=== PATIENT | male | born 1945 | race Caucasian/White ===

== ENCOUNTER 2020-08-01 15:04 | Inpatient (IN) | payer MEDICARE ==
[~2020-08-01] VITALS: Ht 188 cm; Wt 90.5 kg
--- NOTE | 2020-08-01 15:30 | NUR ---
Admission Note with Justification for Admission to [facility] Patient admitted to [facility] for protective oversight for emergency stabilization of acute psychiatric crisis. Pt admitted from: Home Mode of arrival: POV Accompanied By: Family Precipitating behaviors that initiated intake and admission: Patient was reported to be aggressive towards his , noncompliant with medications. Description of failure of out patient attempts at stabilization in previous setting list behavior and medication trials: Medication changes Behaviors and assessment findings upon admission: Patient was calm, compliant on admit. He was cooperative with assessment, no complaints of pain, mildly forgetful. No skin issues noted. Plan: Admit for protective oversight for adjustment and stabilization of medications, behaviors and mood. Intense treatment regimen including groups, medication adjustments, therapy, consistent regimen for ADL's, self care, and sleep hygiene. Daily monitoring by Inpatient staff, Psychiatry, and Medical Physician.
[2020-08-01] MEDS ORDERED: MAG HYDROX/AL HYDROX/SIMETH 30 ML ORAL.SUSP PO PRN (15:45)
[2020-08-01] MEDS ORDERED: METHYL SALICYLATE/MENTHOL TOPICAL OINTMENT 57GM TUBE. TP PRN (15:45)
[2020-08-01] MEDS ORDERED: MAGNESIUM HYDROXIDE 2,400 MG/30 ML ORAL.SUSP. PO PRN (15:45)
[2020-08-01] MEDS ORDERED: METO50TA29 PO (16:09)
[2020-08-01] MEDS ORDERED: MIRT-37 PO (16:09)
[2020-08-01] MEDS ORDERED: PANT40TA6 PO (16:09)
[2020-08-01] MEDS ORDERED: OLAN5TAB7 PO (16:09)
[2020-08-01] MEDS ORDERED: MULT-114 PO (16:09)
[2020-08-01] MEDS ORDERED: FLUT16SP21 NS (16:09)
[2020-08-01] MEDS ORDERED: FENO48TA16 PO (16:09)
[2020-08-01] MEDS ORDERED: LUTE20CA4 PO (16:09)
[2020-08-01 16:20] VITALS: BP 121/81
[2020-08-01] MEDS: MIRTAZAPINE 15 MG TABLET PO SCH (19:56)
--- NOTE | 2020-08-01 21:58 | NUR ---
Nursing Note: Pt withdrawn to room, sitting quietly at shift change. Pt calm, pleasant, and interactive when approached. A/O to self, place, and time with confusion to situation but becomes more forgetful as the evening progresses. At one point this evening, pt pushed a bed from his room into the hallway and forgot that he was in the hospital. Pt has been easily re-directed thus far but will continue to monitor.
[2020-08-01] MEDS: traZODone 50 MG TABLET. PO PRN (23:42)
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
--- NOTE | 2020-08-02 04:33 | NUR ---
Nursing Note: Pt came out of his room and into the hallway, yelling at staff. Staff escorted pt back to his room so that he could use the bathroom as requested. Pt then proceeded to yell at staff, swearing, asking staff "what kind of astronauts are you", "you're not smart enough to be an astronaut". Pt calling staff "bitch", saying "I can milk a cow's tits can you?" and "you need to wash your tits", telling female GAS LEAK TESTER "are you ? You look like you're about 9 months". Pt unable to urinate and therefore it was decided that he needed to be straight cathed. Staff x4 assisted with catheterizing pt. Approximately 950mL yellow urine emptied from pt bladder. Pt continued to berate and yell at staff, calling staff "stupid" and "slut". Pt had to be escorted to [facility] for safety and de-escalation. Pt standing at nurse's station window and as nurse was taking a drink, pt stated "put that in your mouth and suck on it good". Pt shaking door handles and yelling at staff through the window. PRN Zydis administered dissolved in water which pt consumed.
[2020-08-02 04:48] LABS: BACTERIA,URINE 0 /HPF (0-FEW); BILIRUBIN,URINE NEG (NEG); CLARITY,URINE CLEAR; COLOR,URINE YELLOW; GLUCOSE,URINE NEG (NEG); NITRITE,URINE NEG (NEG); RBC,URINE 0 /HPF (0-2); SQUAMOUS EPITHELIAL CELL,UR OCC /LPF; UROBILINOGEN,URINE 0.2 mg/dL (0.2 mg/dL); WBC,URINE RARE /HPF (0-4)
[2020-08-02 05:39] VITALS: BP 162/64
[2020-08-02] MEDS: METOPROLOL SUCC 24HR ER 50 MG TAB.ER.24H. PO SCH (08:24)
[2020-08-02] MEDS: MULTIVITAMIN with MINERAL TABLET. PO SCH (08:25)
[2020-08-02] MEDS: FENOFIBRATE NANOCRYSTALLIZED 48 MG TABLET PO SCH (08:25)
[2020-08-02] MEDS: PANTOPRAZOLE 40 MG TABLET. PO SCH (08:25)
[2020-08-02] MEDS: FLUTICASONE 50MCG/NASAL SPRAY 16GM BOTTLE. NS SCH (08:27)
[2020-08-02] MEDS ORDERED: NON FORMULARY ITEM (Lutein 20 MG) PO SCH (09:00)
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
[2020-08-02 11:00] LABS: BASO # 0.1 x10^3/uL (0.0-0.2); BASO % 1 % (0-3); EOS % 0 % (0-3); HEMATOCRIT 49.6 % (39.0-53.0); HEMOGLOBIN 17.4 g/dL (13.0-17.5); LYMPH # 1.2 x10^3/uL (1.0-4.8); LYMPH % 13 % (24-48); MEAN CORPUSCULAR HEMOGLOBIN 31 pg (25-35); MEAN CORPUSCULAR HGB CONC 35 g/dL (31-37); MEAN CORPUSCULAR VOLUME 88 fL (79-100); MONO # 0.9 x10^3/uL (0.0-1.1); MONO % 10 % (0-9); NEUT # 7.1 x10^3uL (1.8-7.7); NEUT % 76 % (31-73); PLATELET COUNT 234 x10^3/uL (140-400); RED BLOOD COUNT 5.61 x10^6/uL (4.30-5.70); RED CELL DISTRIBUTION WIDTH 13.3 % (11.5-14.5); WHITE BLOOD COUNT 9.3 x10^3/uL (4.0-11.0)
[2020-08-02 11:05] LABS: ALBUMIN 3.8 g/dL (3.4-5.0); CALCIUM 9.1 mg/dL (8.5-10.1); CREATININE 1.2 mg/dL (0.7-1.3); GFR 58.9; MAGNESIUM 1.8 mg/dL (1.8-2.4); POTASSIUM 4.2 mmol/L (3.5-5.1); TOTAL BILIRUBIN 0.8 mg/dL (0.2-1.0); TOTAL PROTEIN 7.6 g/dL (6.4-8.2)
[2020-08-02 14:40] LABS: THYROID STIM HORMONE (TSH) 2.762 uIU/mL (0.358-3.740)
[2020-08-02 15:21] VITALS: BP 142/79
--- NOTE | 2020-08-02 16:58 | NUR ---
Patient is angry and irritable this AM. He was in locked hallway and was very agitated yelling and cussing at me. He wants to go home because he has chores he keeps stating. Patient has scheduled Zydis 5mg and was given with meds in AM. He continued to be irritable and agitated yelling in the hallway at us so I gave him an additional 2.5 PRN dose and he was calm after about 30 minutes after taking. Patient continued to be calm most of the day. He kept crawling around on the ground in his room and eventually we gave him a pillow and blanket and he laid down to sleep . When we went into his room after about 15 min of laying down he had vomited a small amount and said he was weak. We got him up and sat him on edge of bed to eat dinner and he is now doing well. Will monitor. Patient heart rate continues to be high.
--- NOTE | 2020-08-02 18:06 | NUR ---
Spoke to Dr Almeida and he would like to add Melatonin 3mg QHS scheduled. Orders placed.
--- NOTE | 2020-08-02 19:30 | NUR ---
Bladder scan done 700 cc. Pt up to toilet unable to void.
[2020-08-02 20:13] LABS: THYROXINE 6.2 ug/dL (4.5-12.0)
[2020-08-02] MEDS: MELATONIN 3 MG TABLET PO SCH (20:59)
[2020-08-02] MEDS: MIRTAZAPINE 15 MG TABLET PO SCH (20:59)
[2020-08-02] MEDS: traZODone 50 MG TABLET. PO PRN (20:59)
[2020-08-02] MEDS ORDERED: TAMSULOSIN 0.4 MG CAP.ER.24H. PO ONE (21:00)
--- NOTE | 2020-08-02 21:00 | NUR ---
Bladder scanned 820cc, unable to vpoid. Dr BALDWIN called and orders received.
--- NOTE | 2020-08-02 21:30 | NUR ---
Straight cath done 900cc clear dark claudia urine drained. Pt resistive sarcastic and sexually inappropriate to staff. Tolerated procedure well.
--- NOTE | 2020-08-02 21:46 | PDOC ---
Exam Note: Manish Note: Please also refer to the separate dictated note~for this date of service dictated separately.~Patient seen individually. Discussed the patient with Nursing staff reviewed the chart.~Reviewed interim history and current functioning. Reviewed vital signs,~Labs/ Radiology~and current medications noted below. Continue current treatment with the changes noted in the dictated addendum note Assessment: Vital Signs/I&O: Vital Signs Date Time Temp Pulse Resp B/P (MAP) Pulse Ox O2 Delivery O2 Flow Rate FiO2 08/02/20 15:21 98.7 99 19 142/79 (100) 91 08/02/20 05:39 Room Air I & O 08/01/20 08/01/20 08/02/20 15:00 23:00 07:00 Intake Total 540 ml Output Total 950 ml Balance 540 ml -950 ml Labs: Laboratory Tests Test 08/02/20 04:25 08/02/20 10:40 Urine Collection Type U cath Urine Color Yellow Urine Clarity Clear Urine pH 5.5 Urine Specific Homer 1.020 Urine Protein Neg (NEG-TRACE) Urine Glucose (UA) Neg mg/dL (NEG) Urine Ketones (Stick) Neg mg/dL (NEG) Urine Blood Neg (NEG) Urine Nitrite Neg (NEG) Urine Bilirubin Neg (NEG) Urine Urobilinogen Dipstick 0.2 mg/dL (0.2 mg/dL) Urine Leukocyte Esterase Neg (NEG) Urine RBC 0 /HPF (0-2) Urine WBC Rare /HPF (0-4) Urine Squamous Epithelial Cells Occ /LPF Urine Bacteria 0 /HPF (0-FEW) White Blood Count 9.3 x10^3/uL (4.0-11.0) Red Blood Count 5.61 x10^6/uL (4.30-5.70) Hemoglobin 17.4 g/dL (13.0-17.5) Hematocrit 49.6 % (39.0-53.0) Mean Corpuscular Volume 88 fL (79-100) Mean Corpuscular Hemoglobin 31 pg (25-35) Mean Corpuscular Hemoglobin Concent 35 g/dL (31-37) Red Cell Distribution Width 13.3 % (11.5-14.5) Platelet Count 234 x10^3/uL (140-400) Neutrophils (%) (Auto) 76 % (31-73) H Lymphocytes (%) (Auto) 13 % (24-48) L Monocytes (%) (Auto) 10 % (0-9) H Eosinophils (%) (Auto) 0 % (0-3) Basophils (%) (Auto) 1 % (0-3) Neutrophils # (Auto) 7.1 x10^3uL (1.8-7.7) Lymphocytes # (Auto) 1.2 x10^3/uL (1.0-4.8) Monocytes # (Auto) 0.9 x10^3/uL (0.0-1.1) Eosinophils # (Auto) 0.0 x10^3/uL (0.0-0.7) Basophils # (Auto) 0.1 x10^3/uL (0.0-0.2) D-Dimer (Lili) 0.54 mg/L (0.00-0.50) H Sodium Level 143 mmol/L (136-145) Potassium Level 4.2 mmol/L (3.5-5.1) Chloride Level 108 mmol/L (98-107) H Carbon Dioxide Level 24 mmol/L (21-32) Anion Gap 11 (6-14) Blood Urea Nitrogen 21 mg/dL (8-26) Creatinine 1.2 mg/dL (0.7-1.3) Estimated GFR (Cockcroft-Gault) 58.9 BUN/Creatinine Ratio 18 (6-20) Glucose Level 112 mg/dL (70-99) H Calcium Level 9.1 mg/dL (8.5-10.1) Magnesium Level 1.8 mg/dL (1.8-2.4) Iron Level 106 ug/dL (65-175) Total Iron Binding Capacity 344 ug/dL (250-450) Iron Saturation 31 % (15-34) Total Bilirubin 0.8 mg/dL (0.2-1.0) Aspartate Amino Transferase (AST) 24 U/L (15-37) Alanine Aminotransferase (ALT) 35 U/L (16-63) Alkaline Phosphatase 93 U/L (46-116) Total Protein 7.6 g/dL (6.4-8.2) Albumin 3.8 g/dL (3.4-5.0) Albumin/Globulin Ratio 1.0 (1.0-1.7) Triglycerides Level 245 mg/dL (0-150) H Cholesterol Level 288 mg/dL (0-200) H LDL Cholesterol, Calculated 197 mg/dL (0-100) H VLDL Cholesterol, Calculated 49 mg/dL (0-40) H Non-HDL Cholesterol Calculated 246 mg/dL (0-129) H HDL Cholesterol 42 mg/dL (40-60) Cholesterol/HDL Ratio 6.0 Vitamin B12 Level 280 pg/mL (247-911) 25-Hydroxy Vitamin D Total 18.8 ng/mL (30-100) L Thyroid Stimulating Hormone (TSH) 2.762 uIU/mL (0.358-3.740) Thyroxine (T4) 6.2 ug/dL (4.5-12.0) Total Triiodothyronine (TT3) 107 ng/dL (71-180) Treponema pallidum Antibody Nonreactive (Nonreactive) Current Medications: Meds: Current Medications Medications (Trade) Dose Ordered Sig/Sonia Route PRN Reason Start Time Stop Time Status Last Admin Dose Admin Fenofibrate (Tricor) 48 mg DAILY PO 08/02/20 09:00 08/02/20 08:25 Fluticasone Propionate (Flonase) 2 spray DAILY NS 08/02/20 09:00 08/02/20 08:27 Metoprolol Succinate (Toprol Xl) 50 mg DAILY PO 08/02/20 09:00 08/02/20 08:24 Olanzapine (ZyPREXA ZYDIS) 5 mg DAILY PO 08/02/20 09:00 08/02/20 08:25 Pantoprazole Sodium (Protonix) 40 mg DAILY PO 08/02/20 09:00 08/02/20 08:25 Multivitamins/ Calcium (Thera-M Plus) 1 tab DAILY PO 08/02/20 09:00 08/02/20 08:25 Olanzapine (ZyPREXA ZYDIS) 2.5 mg PRN Q2HR PRN PO PSYCHOSIS 08/01/20 23:30 08/02/20 09:30 Trazodone HCl (Desyrel) 50 mg PRN QHS PRN PO INSOMNIA, MAY REPEAT X2 08/01/20 23:30 08/02/20 20:59 Melatonin (Melatonin) 3 mg QHS PO 08/02/20 21:00 08/02/20 20:59 Tamsulosin HCl (Flomax) 0.4 mg 1X ONCE PO 08/02/20 21:00 08/02/20 21:01 DC 08/02/20 21:01 I have reviewed the current psychotropics carefully including drug interactions. Risk benefit ratio favors no change other than as noted in my dictated progress note. Diagnosis: Problems: (1) Psychotic disorder (2) Major neurocognitive disorder (3) Vascular dementia with delusions (4) Vascular dementia with depression (5) Anxiety disorder, unspecified (6) Impulse control disorder, unspecified PRABHAKAR MOLINA MD Aug 02, 2020 21:46
--- NOTE | 2020-08-02 22:51 | NUR ---
Pt has been in the quiet room tonight he has sexually inappropriate with female staff and demanding and sarcastic to everyone. He did take his meds whole without much of a problem. He has been talking to persons not here and sometimes yells demanding unseen persons to do things for him. While being straight catheterized he did swing at staff and eventually calmed.
[2020-08-03 00:07] LABS: HEMOGLOBIN A1C 5.6 % (4.8-5.6)
--- NOTE | 2020-08-03 03:30 | NUR ---
Pt unable to void, straight cath done and pt tolerated well. His behavior was much better when only male staff was providing care. He is very confused and has been talking in child type voice, quacking and making animal sounds at times.
[2020-08-03 06:24] VITALS: BP 150/89
--- NOTE | 2020-08-03 08:07 | PDOC ---
Exam Note: Manish Note: This is a late entry for 08/01/2020. Please also refer to the separate dictated note~for this date of service dictated separately.~Patient seen individually. Discussed the patient with Nursing staff reviewed the chart.~Reviewed interim history and current functioning. Reviewed vital signs,~Labs/ Radiology~and cur rent medications noted below. Continue current treatment with the changes noted in the dictated addendum note Assessment: Vital Signs/I&O: Vital Signs Date Time Temp Pulse Resp B/P (MAP) Pulse Ox O2 Delivery O2 Flow Rate FiO2 08/03/20 06:24 97.7 84 20 150/89 (109) Room Air 08/02/20 15:21 91 I & O 08/02/20 08/02/20 08/03/20 15:00 23:00 07:00 Intake Total 720 ml 740 ml Output Total 1800 ml 600 ml Balance 720 ml -1060 ml -600 ml Labs: Laboratory Tests Test 08/02/20 10:40 White Blood Count 9.3 x10^3/uL (4.0-11.0) Red Blood Count 5.61 x10^6/uL (4.30-5.70) Hemoglobin 17.4 g/dL (13.0-17.5) Hematocrit 49.6 % (39.0-53.0) Mean Corpuscular Volume 88 fL (79-100) Mean Corpuscular Hemoglobin 31 pg (25-35) Mean Corpuscular Hemoglobin Concent 35 g/dL (31-37) Red Cell Distribution Width 13.3 % (11.5-14.5) Platelet Count 234 x10^3/uL (140-400) Neutrophils (%) (Auto) 76 % (31-73) H Lymphocytes (%) (Auto) 13 % (24-48) L Monocytes (%) (Auto) 10 % (0-9) H Eosinophils (%) (Auto) 0 % (0-3) Basophils (%) (Auto) 1 % (0-3) Neutrophils # (Auto) 7.1 x10^3uL (1.8-7.7) Lymphocytes # (Auto) 1.2 x10^3/uL (1.0-4.8) Monocytes # (Auto) 0.9 x10^3/uL (0.0-1.1) Eosinophils # (Auto) 0.0 x10^3/uL (0.0-0.7) Basophils # (Auto) 0.1 x10^3/uL (0.0-0.2) D-Dimer (Lili) 0.54 mg/L (0.00-0.50) H Sodium Level 143 mmol/L (136-145) Potassium Level 4.2 mmol/L (3.5-5.1) Chloride Level 108 mmol/L (98-107) H Carbon Dioxide Level 24 mmol/L (21-32) Anion Gap 11 (6-14) Blood Urea Nitrogen 21 mg/dL (8-26) Creatinine 1.2 mg/dL (0.7-1.3) Estimated GFR (Cockcroft-Gault) 58.9 BUN/Creatinine Ratio 18 (6-20) Glucose Level 112 mg/dL (70-99) H Hemoglobin A1c 5.6 % (4.8-5.6) Calcium Level 9.1 mg/dL (8.5-10.1) Magnesium Level 1.8 mg/dL (1.8-2.4) Iron Level 106 ug/dL (65-175) Total Iron Binding Capacity 344 ug/dL (250-450) Iron Saturation 31 % (15-34) Total Bilirubin 0.8 mg/dL (0.2-1.0) Aspartate Amino Transferase (AST) 24 U/L (15-37) Alanine Aminotransferase (ALT) 35 U/L (16-63) Alkaline Phosphatase 93 U/L (46-116) Total Protein 7.6 g/dL (6.4-8.2) Albumin 3.8 g/dL (3.4-5.0) Albumin/Globulin Ratio 1.0 (1.0-1.7) Triglycerides Level 245 mg/dL (0-150) H Cholesterol Level 288 mg/dL (0-200) H LDL Cholesterol, Calculated 197 mg/dL (0-100) H VLDL Cholesterol, Calculated 49 mg/dL (0-40) H Non-HDL Cholesterol Calculated 246 mg/dL (0-129) H HDL Cholesterol 42 mg/dL (40-60) Cholesterol/HDL Ratio 6.0 Vitamin B12 Level 280 pg/mL (247-911) 25-Hydroxy Vitamin D Total 18.8 ng/mL (30-100) L Thyroid Stimulating Hormone (TSH) 2.762 uIU/mL (0.358-3.740) Thyroxine (T4) 6.2 ug/dL (4.5-12.0) Total Triiodothyronine (TT3) 107 ng/dL (71-180) Treponema pallidum Antibody Nonreactive (Nonreactive) Current Medications: Meds: Laboratory Tests Test 08/02/20 10:40 White Blood Count 9.3 x10^3/uL Red Blood Count 5.61 x10^6/uL Hemoglobin 17.4 g/dL Hematocrit 49.6 % Mean Corpuscular Volume 88 fL Mean Corpuscular Hemoglobin 31 pg Mean Corpuscular Hemoglobin Concent 35 g/dL Red Cell Distribution Width 13.3 % Platelet Count 234 x10^3/uL Neutrophils (%) (Auto) 76 % Lymphocytes (%) (Auto) 13 % Monocytes (%) (Auto) 10 % Eosinophils (%) (Auto) 0 % Basophils (%) (Auto) 1 % Neutrophils # (Auto) 7.1 x10^3uL Lymphocytes # (Auto) 1.2 x10^3/uL Monocytes # (Auto) 0.9 x10^3/uL Eosinophils # (Auto) 0.0 x10^3/uL Basophils # (Auto) 0.1 x10^3/uL D-Dimer (Lili) 0.54 mg/L Sodium Level 143 mmol/L Potassium Level 4.2 mmol/L Chloride Level 108 mmol/L Carbon Dioxide Level 24 mmol/L Anion Gap 11 Blood Urea Nitrogen 21 mg/dL Creatinine 1.2 mg/dL Estimated GFR (Cockcroft-Gault) 58.9 BUN/Creatinine Ratio 18 Glucose Level 112 mg/dL Hemoglobin A1c 5.6 % Calcium Level 9.1 mg/dL Magnesium Level 1.8 mg/dL Iron Level 106 ug/dL Total Iron Binding Capacity 344 ug/dL Iron Saturation 31 % Total Bilirubin 0.8 mg/dL Aspartate Amino Transf (AST/SGOT) 24 U/L Alanine Aminotransferase (ALT/SGPT) 35 U/L Alkaline Phosphatase 93 U/L Total Protein 7.6 g/dL Albumin 3.8 g/dL Albumin/Globulin Ratio 1.0 Triglycerides Level 245 mg/dL Cholesterol Level 288 mg/dL LDL Cholesterol, Calculated 197 mg/dL VLDL Cholesterol, Calculated 49 mg/dL Non-HDL Cholesterol Calculated 246 mg/dL HDL Cholesterol 42 mg/dL Cholesterol/HDL Ratio 6.0 Vitamin B12 Level 280 pg/mL 25-Hydroxy Vitamin D Total 18.8 ng/mL Thyroid Stimulating Hormone (TSH) 2.762 uIU/mL Thyroxine (T4) 6.2 ug/dL Total Triiodothyronine 107 ng/dL Treponema pallidum Antibody Nonreactive Current Medications Medications (Trade) Dose Ordered Sig/Sonia Route PRN Reason Start Time Stop Time Status Last Admin Dose Admin Acetaminophen (Tylenol) 650 mg PRN Q6HRS PRN PO MILD PAIN / TEMP > 100.3'F 08/01/20 15:45 Multi-Ingredient Ointment (Analgesic [place]) 1 olu PRN QID PRN TP MUSCLE PAIN 08/01/20 15:45 Al Hydroxide/Mg Hydroxide (Mylanta Plus Xs) 15 ml PRN AFTMEALHC PRN PO DYSPEPSIA 08/01/20 15:45 Magnesium Hydroxide (Milk Of Magnesia) 2,400 mg PRN QHS PRN PO CONSTIPATION 08/01/20 15:45 Fenofibrate (Tricor) 48 mg DAILY PO 08/02/20 09:00 08/02/20 08:25 Fluticasone Propionate (Flonase) 2 spray DAILY NS 08/02/20 09:00 08/02/20 08:27 Metoprolol Succinate (Toprol Xl) 50 mg DAILY PO 08/02/20 09:00 08/02/20 08:24 Mirtazapine (Remeron) 15 mg QHS PO 08/01/20 21:00 08/02/20 20:59 Olanzapine (ZyPREXA ZYDIS) 5 mg DAILY PO 08/02/20 09:00 08/02/20 08:25 Pantoprazole Sodium (Protonix) 40 mg DAILY PO 08/02/20 09:00 08/02/20 08:25 Non-Formulary Medication (Lutein ) 20 mg DAILY PO 08/02/20 09:00 UNV Multivitamins/ Calcium (Thera-M Plus) 1 tab DAILY PO 08/02/20 09:00 08/02/20 08:25 Olanzapine (ZyPREXA ZYDIS) 2.5 mg PRN Q2HR PRN PO PSYCHOSIS 08/01/20 23:30 08/02/20 09:30 Trazodone HCl (Desyrel) 50 mg PRN QHS PRN PO INSOMNIA, MAY REPEAT X2 08/01/20 23:30 08/02/20 20:59 Melatonin (Melatonin) 3 mg QHS PO 08/02/20 21:00 08/02/20 20:59 Tamsulosin HCl (Flomax) 0.4 mg DAILY PO 08/03/20 09:00 Tamsulosin HCl (Flomax) 0.4 mg 1X ONCE PO 08/02/20 21:00 08/02/20 21:01 DC 08/02/20 21:01 Current Medications Medications (Trade) Dose Ordered Sig/Sonia Route PRN Reason Start Time Stop Time Status Last Admin Dose Admin Fenofibrate (Tricor) 48 mg DAILY PO 08/02/20 09:00 08/02/20 08:25 Fluticasone Propionate (Flonase) 2 spray DAILY NS 08/02/20 09:00 08/02/20 08:27 Metoprolol Succinate (Toprol Xl) 50 mg DAILY PO 08/02/20 09:00 08/02/20 08:24 Olanzapine (ZyPREXA ZYDIS) 5 mg DAILY PO 08/02/20 09:00 08/02/20 08:25 Pantoprazole Sodium (Protonix) 40 mg DAILY PO 08/02/20 09:00 08/02/20 08:25 Multivitamins/ Calcium (Thera-M Plus) 1 tab DAILY PO 08/02/20 09:00 08/02/20 08:25 Melatonin (Melatonin) 3 mg QHS PO 08/02/20 21:00 08/02/20 20:59 Tamsulosin HCl (Flomax) 0.4 mg 1X ONCE PO 08/02/20 21:00 08/02/20 21:01 DC 08/02/20 21:01 I have reviewed the current psychotropics carefully including drug interactions. Risk benefit ratio favors no change other than as noted in my dictated progress note. Diagnosis: Problems: (1) Psychotic disorder (2) Impulse control disorder, unspecified (3) Vascular dementia with delusions (4) Anxiety disorder, unspecified (5) Vascular dementia with depression (6) Major neurocognitive disorder PRABHAKAR MOLINA MD Aug 03, 2020 08:07
--- NOTE | 2020-08-03 08:30 | PDOC ---
Exam Note: Manish Note: This note is a late entry for 08/02/2020 covers elements not covered in my initial note. Subjective: The patient was reviewed on telehealth rounds in the evening of 08/02/2020 with Roselyn ULLOA. Discussed with nursing staff, reviewed the chart. The patient was abusive in the morning, yelling, agitated. I had been called by the nursing staff around midnight, as he was not sleeping. We have added trazodone and Remeron, but still did not sleep at all previous night. Review of Systems: Positive for some impairment of ambulation. No CV, , pulmonary, eye, ENT system symptoms on review. Mental Status Exam: The patient is oriented to himself and situation. Speech has some latency. Often response is monosyllabic. Abstraction is fair. Computation is impaired. Language function is intact. Mood and affect somewhat anxious, labile. Laboratory Data: Reviewed. Impression: Major neurocognitive disorder, vascular with delusion, depression. Anxiety disorder unspecified. Impulse control disorder. Psychotic disorder unspecified. Plan: Continue Remeron 15 mg h.s., Zyprexa 5 mg daily plus p.r.n., trazodone p.r.n. We will add melatonin 3 mg h.s. Consider changing Remeron to amitriptyline if insomnia persists. Adjust further as clinically indicated. Assessment: Vital Signs/I&O: Vital Signs Date Time Temp Pulse Resp B/P (MAP) Pulse Ox O2 Delivery O2 Flow Rate FiO2 08/03/20 06:24 97.7 84 20 150/89 (109) Room Air 08/02/20 15:21 91 I & O 08/02/20 08/02/20 08/03/20 15:00 23:00 07:00 Intake Total 720 ml 740 ml Output Total 1800 ml 600 ml Balance 720 ml -1060 ml -600 ml Labs: Laboratory Tests Test 08/02/20 10:40 White Blood Count 9.3 x10^3/uL (4.0-11.0) Red Blood Count 5.61 x10^6/uL (4.30-5.70) Hemoglobin 17.4 g/dL (13.0-17.5) Hematocrit 49.6 % (39.0-53.0) Mean Corpuscular Volume 88 fL (79-100) Mean Corpuscular Hemoglobin 31 pg (25-35) Mean Corpuscular Hemoglobin Concent 35 g/dL (31-37) Red Cell Distribution Width 13.3 % (11.5-14.5) Platelet Count 234 x10^3/uL (140-400) Neutrophils (%) (Auto) 76 % (31-73) H Lymphocytes (%) (Auto) 13 % (24-48) L Monocytes (%) (Auto) 10 % (0-9) H Eosinophils (%) (Auto) 0 % (0-3) Basophils (%) (Auto) 1 % (0-3) Neutrophils # (Auto) 7.1 x10^3uL (1.8-7.7) Lymphocytes # (Auto) 1.2 x10^3/uL (1.0-4.8) Monocytes # (Auto) 0.9 x10^3/uL (0.0-1.1) Eosinophils # (Auto) 0.0 x10^3/uL (0.0-0.7) Basophils # (Auto) 0.1 x10^3/uL (0.0-0.2) D-Dimer (Lili) 0.54 mg/L (0.00-0.50) H Sodium Level 143 mmol/L (136-145) Potassium Level 4.2 mmol/L (3.5-5.1) Chloride Level 108 mmol/L (98-107) H Carbon Dioxide Level 24 mmol/L (21-32) Anion Gap 11 (6-14) Blood Urea Nitrogen 21 mg/dL (8-26) Creatinine 1.2 mg/dL (0.7-1.3) Estimated GFR (Cockcroft-Gault) 58.9 BUN/Creatinine Ratio 18 (6-20) Glucose Level 112 mg/dL (70-99) H Hemoglobin A1c 5.6 % (4.8-5.6) Calcium Level 9.1 mg/dL (8.5-10.1) Magnesium Level 1.8 mg/dL (1.8-2.4) Iron Level 106 ug/dL (65-175) Total Iron Binding Capacity 344 ug/dL (250-450) Iron Saturation 31 % (15-34) Total Bilirubin 0.8 mg/dL (0.2-1.0) Aspartate Amino Transferase (AST) 24 U/L (15-37) Alanine Aminotransferase (ALT) 35 U/L (16-63) Alkaline Phosphatase 93 U/L (46-116) Total Protein 7.6 g/dL (6.4-8.2) Albumin 3.8 g/dL (3.4-5.0) Albumin/Globulin Ratio 1.0 (1.0-1.7) Triglycerides Level 245 mg/dL (0-150) H Cholesterol Level 288 mg/dL (0-200) H LDL Cholesterol, Calculated 197 mg/dL (0-100) H VLDL Cholesterol, Calculated 49 mg/dL (0-40) H Non-HDL Cholesterol Calculated 246 mg/dL (0-129) H HDL Cholesterol 42 mg/dL (40-60) Cholesterol/HDL Ratio 6.0 Vitamin B12 Level 280 pg/mL (247-911) 25-Hydroxy Vitamin D Total 18.8 ng/mL (30-100) L Thyroid Stimulating Hormone (TSH) 2.762 uIU/mL (0.358-3.740) Thyroxine (T4) 6.2 ug/dL (4.5-12.0) Total Triiodothyronine (TT3) 107 ng/dL (71-180) Treponema pallidum Antibody Nonreactive (Nonreactive) Current Medications: Meds: Current Medications Medications (Trade) Dose Ordered Sig/Sonia Route PRN Reason Start Time Stop Time Status Last Admin Dose Admin Fenofibrate (Tricor) 48 mg DAILY PO 08/02/20 09:00 08/02/20 08:25 Fluticasone Propionate (Flonase) 2 spray DAILY NS 08/02/20 09:00 08/02/20 08:27 Metoprolol Succinate (Toprol Xl) 50 mg DAILY PO 08/02/20 09:00 08/02/20 08:24 Olanzapine (ZyPREXA ZYDIS) 5 mg DAILY PO 08/02/20 09:00 08/02/20 08:25 Pantoprazole Sodium (Protonix) 40 mg DAILY PO 08/02/20 09:00 08/02/20 08:25 Multivitamins/ Calcium (Thera-M Plus) 1 tab DAILY PO 08/02/20 09:00 08/02/20 08:25 Melatonin (Melatonin) 3 mg QHS PO 08/02/20 21:00 08/02/20 20:59 Tamsulosin HCl (Flomax) 0.4 mg 1X ONCE PO 08/02/20 21:00 08/02/20 21:01 DC 08/02/20 21:01 I have reviewed the current psychotropics carefully including drug interactions. Risk benefit ratio favors no change other than as noted in my dictated progress note. Diagnosis: Problems: (1) Psychotic disorder (2) Impulse control disorder, unspecified (3) Vascular dementia with delusions (4) Anxiety disorder, unspecified (5) Vascular dementia with depression (6) Major neurocognitive disorder PRABHAKAR MOLINA MD Aug 03, 2020 08:30
[2020-08-03] MEDS: FLUTICASONE 50MCG/NASAL SPRAY 16GM BOTTLE. NS SCH (09:00)
[2020-08-03] MEDS ORDERED: TAMSULOSIN 0.4 MG CAP.ER.24H. PO SCH (09:00)
[2020-08-03] MEDS: FENOFIBRATE NANOCRYSTALLIZED 48 MG TABLET PO SCH (09:47)
[2020-08-03] MEDS: METOPROLOL SUCC 24HR ER 50 MG TAB.ER.24H. PO SCH (09:47)
[2020-08-03] MEDS: MULTIVITAMIN with MINERAL TABLET. PO SCH (09:47)
[2020-08-03] MEDS: PANTOPRAZOLE 40 MG TABLET. PO SCH (09:47)
--- NOTE | 2020-08-03 10:59 | NUR ---
WEEKLY ACTIVITY THERAPY NOTE Date of Admission: 08/01 Date of AT Assessment: TBD Precipitating behaviors that initiated intake and admission: Patient was reported to be aggressive towards his , noncompliant with medications. Goal aimed: TBD Initial Goal: TBD Weekly progress towards goal: NA Group participation level: zero Weekly highlights: arrived to the unit Behaviors observed: new admit, wanders with mask in his hand Plan: meet/ assess Pt Beneficial adaptations:
--- NOTE | 2020-08-03 12:24 | NUR ---
Patient still not voiding on own. Bladder scan done and ~600ml on scan seen. Patient was straight cath'd and I was able to drain 575ml of urine. Patient was visibly [id number]+ Addendum: 08/03/20 at 1230 by BEST MANCINI RN Patient visibly distended and uncomfortable. Patient laid flat in bed. Clean procedure was used to straight cath patient. Penis opening was very small and looked very swollen and irritated. Area was cleansed with betadine swabs. Catheter was inserted and once urine was flowing catheter was advanced 1 inch further. Catheter was held in place until urine flow stopped totalling 575ml of urine. Catheter was removed and patient tolerated procedure well. Urine sample was sent to lab last night so urine was discarded. We will continue to monitor if patient voids on his own or not and scan him every 6 hours. If need be we will continue to catheterize him to drain. Spoke to Dr Art and we will increase the flomax to BID starting now to see if we can avoid the patient getting a pearson inserted. Will monitor and decide at a later time.
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
[2020-08-03] MEDS: TAMSULOSIN 0.4 MG CAP.ER.24H. PO SCH ×2 (14:29→19:42)
[2020-08-03 15:38] VITALS: BP 135/71
--- NOTE | 2020-08-03 16:48 | NUR ---
Patient spends most of his day laying in bed. Did sleep through out the day. He has not been urinating on his own. Dr Art does not want to place a pearson so we will continue to monitor patient and output. Patient does state that he is uncomfortable. No further concerns or complaints at this time. Patient has no behaviors today and is calm and pleasant. Did turn labile at times.
--- NOTE | 2020-08-03 17:39 | NUR ---
Bladder scan performed, last straight catheter performed at 11:00am, Largest measurement 355ml to 295ml. Will wait for patient to see if he can use urinal. He will get a second dose of the Flomax tonight and maybe he will be able to urinate on his own then. Will have hand ii blocker RN have a plan with Dr Art for overnight if he does not urinate.
[2020-08-03] MEDS: MELATONIN 3 MG TABLET PO SCH (19:42)
[2020-08-03] MEDS: risperiDONE 0.25 MG TABLET. PO SCH (19:43)
--- NOTE | 2020-08-03 21:03 | PDOC ---
Exam Note: Manish Note: Please also refer to the separate dictated note~for this date of service dictated separately.~Patient seen individually. Discussed the patient with Nursing staff reviewed the chart.~Reviewed interim history and current functioning. Reviewed vital signs,~Labs/ Radiology~and current medications noted below. Continue current treatment with the changes noted in the dictated addendum note Assessment: Vital Signs/I&O: Vital Signs Date Time Temp Pulse Resp B/P (MAP) Pulse Ox O2 Delivery O2 Flow Rate FiO2 08/03/20 15:38 98.1 85 18 135/71 (92) 92 08/03/20 06:24 Room Air I & O 08/02/20 08/02/20 08/03/20 15:00 23:00 07:00 Intake Total 720 ml 740 ml Output Total 1800 ml 600 ml Balance 720 ml -1060 ml -600 ml Current Medications: Meds: Current Medications Medications (Trade) Dose Ordered Sig/Sonia Route PRN Reason Start Time Stop Time Status Last Admin Dose Admin Acetaminophen (Tylenol) 650 mg PRN Q6HRS PRN PO MILD PAIN / TEMP > 100.3'F 08/01/20 15:45 Multi-Ingredient Ointment (Analgesic [place]) 1 olu PRN QID PRN TP MUSCLE PAIN 08/01/20 15:45 Al Hydroxide/Mg Hydroxide (Mylanta Plus Xs) 15 ml PRN AFTMEALHC PRN PO DYSPEPSIA 08/01/20 15:45 Magnesium Hydroxide (Milk Of Magnesia) 2,400 mg PRN QHS PRN PO CONSTIPATION 08/01/20 15:45 Fenofibrate (Tricor) 48 mg DAILY PO 08/02/20 09:00 08/03/20 09:47 Fluticasone Propionate (Flonase) 2 spray DAILY NS 08/02/20 09:00 08/03/20 09:00 Metoprolol Succinate (Toprol Xl) 50 mg DAILY PO 08/02/20 09:00 08/03/20 09:47 Mirtazapine (Remeron) 15 mg QHS PO 08/01/20 21:00 08/03/20 18:01 DC 08/02/20 20:59 Olanzapine (ZyPREXA ZYDIS) 5 mg DAILY PO 08/02/20 09:00 08/03/20 18:01 DC 08/03/20 09:47 Pantoprazole Sodium (Protonix) 40 mg DAILY PO 08/02/20 09:00 08/03/20 09:47 Non-Formulary Medication (Lutein ) 20 mg DAILY PO 08/02/20 09:00 UNV Multivitamins/ Calcium (Thera-M Plus) 1 tab DAILY PO 08/02/20 09:00 08/03/20 09:47 Olanzapine (ZyPREXA ZYDIS) 2.5 mg PRN Q2HR PRN PO PSYCHOSIS 08/01/20 23:30 08/02/20 09:30 Trazodone HCl (Desyrel) 50 mg PRN QHS PRN PO INSOMNIA, MAY REPEAT X2 08/01/20 23:30 08/02/20 20:59 Melatonin (Melatonin) 3 mg QHS PO 08/02/20 21:00 08/03/20 19:42 Tamsulosin HCl (Flomax) 0.4 mg DAILY PO 08/03/20 09:00 08/03/20 12:33 DC 08/03/20 09:47 Tamsulosin HCl (Flomax) 0.4 mg 1X ONCE PO 08/02/20 21:00 08/02/20 21:01 DC 08/02/20 21:01 Tamsulosin HCl (Flomax) 0.4 mg BID PO 08/03/20 14:00 08/03/20 19:42 Risperidone (RisperDAL) 0.25 mg QHS PO 08/03/20 21:00 08/03/20 19:43 Current Medications Medications (Trade) Dose Ordered Sig/Sonia Route PRN Reason Start Time Stop Time Status Last Admin Dose Admin Tamsulosin HCl (Flomax) 0.4 mg DAILY PO 08/03/20 09:00 08/03/20 12:33 DC 08/03/20 09:47 Tamsulosin HCl (Flomax) 0.4 mg BID PO 08/03/20 14:00 08/03/20 19:42 Risperidone (RisperDAL) 0.25 mg QHS PO 08/03/20 21:00 08/03/20 19:43 I have reviewed the current psychotropics carefully including drug interactions. Risk benefit ratio favors no change other than as noted in my dictated progress note. Diagnosis: Problems: (1) Psychotic disorder (2) Impulse control disorder, unspecified (3) Vascular dementia with delusions (4) Anxiety disorder, unspecified (5) Vascular dementia with depression (6) Major neurocognitive disorder PRABHAKAR MOLINA MD Aug 03, 2020 21:03
--- NOTE | 2020-08-04 03:54 | NUR ---
Nursing Note The patient was located in his room laying in bed for his assessment and medication pass. The patient took his medication whole. The patient was unable to answer assessment questions except first and last name and "hospital." The patient is very fearful of falling but is cooperative with cares.
[2020-08-04 06:32] VITALS: BP 153/76
--- NOTE | 2020-08-04 09:00 | NUR ---
ACTIVITY THERAPY ASSESSMENT completed based on observation, notes, and interview. Pt was laying in his bed with his eyes open. As AT walked into the room pt said 'your pretty.' Pt said that he was unable to hear AT through her mask. AT explained that she could not take her mask off because of the virus. Pt said that he had some idea about Coronavirus. Pt was compliant at first and agreed to answering questions. Pt said that [place]. Pt's mood then became labile as he became agitated and harsh towards AT. Pt began to ask AT questions and then would call AT stupid or say 'where is your brain?' Pt also told AT that she was unprofessional. Pt was requesting to get out of bed and wanted his bed lowered. AT explained that his bed was all the way down and he could get up if he would like. Pt was still agitated with AT at this point. Pt said 'with what legs?' AT pointed to pt's legs and said that he could use his legs. Pt said 'do not touch me.' AT apologized and explained that she did not touch him. Pt told AT, 'do not even look at me.' Pt was not redirectable during the time of assessment. Pt was unaware that he was in [place] and at [facility]. Pt said that he was in [place]. AT asked pt if she could get him anything. Pt requested Men's Health magazines. AT brought back a Men's Health magazine and asked if he would like any other magazines. Pt said 'I want five' as he held up the number on his hands. Then he said to AT 'can you count to five?' AT gave pt the last Men's Health magazine on the unit so the pt was brought four more People magazines. Pt's mood at this time became pleasant and was agreeable to other magazines and thanked AT. Initial goal is aimed to increase stress management/relaxation and socialization skills. Pt will participate in at least one individual or group Activity Therapy session before discharge. Addendum: 08/10/20 at 1240 by KEITH WALTER ACT Goal changed 08/10: Pt. will participate in at least three Activity Therapy groups before discharge
[2020-08-04] MEDS: MULTIVITAMIN with MINERAL TABLET. PO SCH (09:15)
[2020-08-04] MEDS: FENOFIBRATE NANOCRYSTALLIZED 48 MG TABLET PO SCH (09:15)
[2020-08-04] MEDS: PANTOPRAZOLE 40 MG TABLET. PO SCH (09:15)
[2020-08-04] MEDS: TAMSULOSIN 0.4 MG CAP.ER.24H. PO SCH ×2 (09:15→21:09)
[2020-08-04] MEDS: FLUTICASONE 50MCG/NASAL SPRAY 16GM BOTTLE. NS SCH (09:16)
[2020-08-04] MEDS: METOPROLOL SUCC 24HR ER 50 MG TAB.ER.24H. PO SCH (09:16)
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
[2020-08-04] MEDS: ACETAMINOPHEN 325 MG TABLET PO PRN (10:19)
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
[2020-08-04 15:00] VITALS: BP 113/78
--- NOTE | 2020-08-04 17:23 | NUR ---
Patient laying in bed at time of assessment. Patient is very inappropriate and has very crude and sexual remarks. I told the patient this was not acceptable behavior and he continued to make fun of me and mock me. I tried to hand the patient his medications and he tried to hit them out of my hand. I removed myself from the patient room and told him I would come back when he could behave appropriately. Patient yells for me once I reached the hallway and asked me to please come back to his room. I entered the room and handed the patient his medications which he proceeded to take whole with no problems. Patient said please and thank you and continues to act appropriately while I was in his room. Patient currently still unable to urinate on his own although he feels like he wants to go. We will continue to monitor him
--- NOTE | 2020-08-04 17:32 | NUR ---
Bladder scan performed on patient and 3 readings as followed. 335ml, >375ml, 350ml. Spoke to Dr Art and he would like for me to straight cath patient 1 more time to see if we are able to hold out on inserting a pearson. Straight cath performed. Patient lays in bed for procedure. Penis cleaned with betadine swabs. Catheter was placed in lubrication and inserted into urethra. Once urine was seen, catheter was inserted another inch. Catheter held in place while urine was draining. Once urine stopped draining catheter was removed and area was cleansed. patient tolerated procedure well with no complaints Urine looks darker and with more sediment today so we will send for U/Z with culture if indicated.
[2020-08-04 17:46] LABS: BILIRUBIN,URINE NEG (NEG); CLARITY,URINE CLEAR; COLOR,URINE ORANGE; GLUCOSE,URINE NEG (NEG)
[2020-08-04 17:47] LABS: UROBILINOGEN,URINE 0.2 mg/dL (0.2 mg/dL)
[2020-08-04 17:48] LABS: BACTERIA,URINE FEW /HPF (0-FEW); NITRITE,URINE POS (NEG); SQUAMOUS EPITHELIAL CELL,UR OCC /LPF
--- NOTE | 2020-08-04 21:08 | PDOC ---
Exam Note: Manish Note: Please also refer to the separate dictated note~for this date of service dictated separately.~Patient seen individually. Discussed the patient with Nursing staff reviewed the chart.~Reviewed interim history and current functioning. Reviewed vital signs,~Labs/ Radiology~and current medications noted below. Continue current treatment with the changes noted in the dictated addendum note Assessment: Vital Signs/I&O: Vital Signs Date Time Temp Pulse Resp B/P (MAP) Pulse Ox O2 Delivery O2 Flow Rate FiO2 08/04/20 15:00 97.2 112 18 113/78 (90) 97 Room Air I & O 08/03/20 08/03/20 08/04/20 15:00 23:00 07:00 Intake Total 460 ml 340 ml Output Total 600 ml 350 ml Balance 460 ml -260 ml -350 ml Labs: Laboratory Tests Test 08/04/20 16:00 Urine Collection Type Unknown Urine Color [place] Urine Clarity Clear Urine pH 5.5 Urine Specific [place] >=1.030 Urine Protein Trace (NEG-TRACE) Urine Glucose (UA) Neg mg/dL (NEG) Urine Ketones (Stick) Neg mg/dL (NEG) Urine Blood Trace (NEG) Urine Nitrite Pos (NEG) Urine Bilirubin Neg (NEG) Urine Urobilinogen Dipstick 0.2 mg/dL (0.2 mg/dL) Urine Leukocyte Esterase Neg (NEG) Urine RBC 6-10 /HPF (0-2) Urine WBC 5-10 /HPF (0-4) Urine Squamous Epithelial Cells Occ /LPF Urine Bacteria Few /HPF (0-FEW) Current Medications: Meds: Laboratory Tests Test 08/04/20 16:00 Urine Collection Type Unknown Urine Color [place] Urine Clarity Clear Urine pH 5.5 Urine Specific [place] >=1.030 Urine Protein Trace Urine Glucose (UA) Neg mg/dL Urine Ketones (Stick) Neg mg/dL Urine Blood Trace Urine Nitrite Pos Urine Bilirubin Neg Urine Urobilinogen Dipstick 0.2 mg/dL Urine Leukocyte Esterase Neg Urine RBC 6-10 /HPF Urine WBC 5-10 /HPF Urine Squamous Epithelial Cells Occ /LPF Urine Bacteria Few /HPF Current Medications Medications (Trade) Dose Ordered Sig/Sonia Route PRN Reason Start Time Stop Time Status Last Admin Dose Admin Acetaminophen (Tylenol) 650 mg PRN Q6HRS PRN PO MILD PAIN / TEMP > 100.3'F 08/01/20 15:45 08/04/20 10:19 Multi-Ingredient Ointment (Analgesic [place]) 1 olu PRN QID PRN TP MUSCLE PAIN 08/01/20 15:45 Al Hydroxide/Mg Hydroxide (Mylanta Plus Xs) 15 ml PRN AFTMEALHC PRN PO DYSPEPSIA 08/01/20 15:45 Magnesium Hydroxide (Milk Of Magnesia) 2,400 mg PRN QHS PRN PO CONSTIPATION 08/01/20 15:45 Fenofibrate (Tricor) 48 mg DAILY PO 08/02/20 09:00 08/04/20 09:15 Fluticasone Propionate (Flonase) 2 spray DAILY NS 08/02/20 09:00 08/04/20 09:16 Metoprolol Succinate (Toprol Xl) 50 mg DAILY PO 08/02/20 09:00 08/04/20 09:16 Mirtazapine (Remeron) 15 mg QHS PO 08/01/20 21:00 08/03/20 18:01 DC 08/02/20 20:59 Olanzapine (ZyPREXA ZYDIS) 5 mg DAILY PO 08/02/20 09:00 08/03/20 18:01 DC 08/03/20 09:47 Pantoprazole Sodium (Protonix) 40 mg DAILY PO 08/02/20 09:00 08/04/20 09:15 Non-Formulary Medication (Lutein ) 20 mg DAILY PO 08/02/20 09:00 UNV Multivitamins/ Calcium (Thera-M Plus) 1 tab DAILY PO 08/02/20 09:00 08/04/20 09:15 Olanzapine (ZyPREXA ZYDIS) 2.5 mg PRN Q2HR PRN PO PSYCHOSIS 08/01/20 23:30 08/04/20 09:30 Trazodone HCl (Desyrel) 50 mg PRN QHS PRN PO INSOMNIA, MAY REPEAT X2 08/01/20 23:30 08/02/20 20:59 Melatonin (Melatonin) 3 mg QHS PO 08/02/20 21:00 08/03/20 19:42 Tamsulosin HCl (Flomax) 0.4 mg DAILY PO 08/03/20 09:00 08/03/20 12:33 DC 08/03/20 09:47 Tamsulosin HCl (Flomax) 0.4 mg 1X ONCE PO 08/02/20 21:00 08/02/20 21:01 DC 08/02/20 21:01 Tamsulosin HCl (Flomax) 0.4 mg BID PO 08/03/20 14:00 08/04/20 09:15 Risperidone (RisperDAL) 0.25 mg QHS PO 08/03/20 21:00 08/03/20 19:43 I have reviewed the current psychotropics carefully including drug interactions. Risk benefit ratio favors no change other than as noted in my dictated progress note. Diagnosis: Problems: (1) Psychotic disorder (2) Impulse control disorder, unspecified (3) Vascular dementia with delusions (4) Anxiety disorder, unspecified (5) Vascular dementia with depression (6) Major neurocognitive disorder PRABHAKAR MOLINA MD Aug 04, 2020 21:08
[2020-08-04] MEDS: risperiDONE 0.25 MG TABLET. PO SCH (21:09)
[2020-08-04] MEDS: MELATONIN 3 MG TABLET PO SCH (21:09)
[2020-08-05] MEDS: traZODone 50 MG TABLET. PO PRN (02:39)
--- NOTE | 2020-08-05 04:16 | NUR ---
Nursing Note The patient was calm, compliant and disorganized this shift. The patient took his medication whole. The patient declined to keep pants and underwear on this shift. The patient continues to have no urinary output. Bladder scan@ 0000 showed approximately 390ml in bladder. Patient stated he has no abdominal pain. The patient was given PRN Trazodone@ 0230 per PRN order.
[2020-08-05 06:29] VITALS: BP 134/90
--- NOTE | 2020-08-05 08:31 | PDOC ---
Exam Note: Manish Note: This note is a late entry for 08/03/2020 covers elements not covered in my initial note. Subjective: The patient was reviewed on telehealth rounds in the morning of 08/03/2020 for a treatment team meeting with Tiarra Pendleton and Analisa (community mental health social worker), Lashay, activity therapy and Roselyn RN. Discussed with nursing staff, reviewed the chart. He slept 2-1/4 hours previous night. The patients called the nursing staff wants him on DNR status. [facility] was in the [facility] to reduce stimuli all previous night. He has been sexually inappropriate and makes comments to female nursing staff. He has had urinary retention 900 mL, a.m. 600 mL, straight catheter. He was worse in the evening with agitation. According to the information from the patients he started having urinary retention after starting Remeron and Zyprexa. We will go ahead and stop both of these and given his ongoing psychotic symptoms start Risperdal 0.25 mg h.s. Flomax was increased for his urinary retention. Review of Systems: Ambulation impaired. No CV, , pulmonary, eye, ENT system symptoms on review. He does complain of urinary retention. Reliability poor. Mental Status Exam: The patient is oriented to himself. Insight, judgment, recent memory is impaired. Language function is intact. Attention span is short. Mood and affect withdrawn. At times he is more oriented than other times. Laboratory Data: Reviewed. Impression: Major neurocognitive disorder Alzheimer vascular with delusion, depression, behavioral disturbance. Anxiety disorder unspecified. Impulse control disorder. Plan: No change from initial note. Assessment: Vital Signs/I&O: Vital Signs Date Time Temp Pulse Resp B/P (MAP) Pulse Ox O2 Delivery O2 Flow Rate FiO2 08/05/20 06:29 98.4 97 16 134/90 (105) 92 08/04/20 15:00 Room Air I & O 08/04/20 08/04/20 08/05/20 15:00 23:00 07:00 Intake Total 200 ml 720 ml Output Total 380 ml Balance 200 ml 720 ml -380 ml Labs: Laboratory Tests Test 08/04/20 16:00 Urine Collection Type Unknown Urine Color [place] Urine Clarity Clear Urine pH 5.5 Urine Specific [place] >=1.030 Urine Protein Trace (NEG-TRACE) Urine Glucose (UA) Neg mg/dL (NEG) Urine Ketones (Stick) Neg mg/dL (NEG) Urine Blood Trace (NEG) Urine Nitrite Pos (NEG) Urine Bilirubin Neg (NEG) Urine Urobilinogen Dipstick 0.2 mg/dL (0.2 mg/dL) Urine Leukocyte Esterase Neg (NEG) Urine RBC 6-10 /HPF (0-2) Urine WBC 5-10 /HPF (0-4) Urine Squamous Epithelial Cells Occ /LPF Urine Bacteria Few /HPF (0-FEW) Current Medications: Meds: Laboratory Tests Test 08/04/20 16:00 Urine Collection Type Unknown Urine Color [place] Urine Clarity Clear Urine pH 5.5 Urine Specific [place] >=1.030 Urine Protein Trace Urine Glucose (UA) Neg mg/dL Urine Ketones (Stick) Neg mg/dL Urine Blood Trace Urine Nitrite Pos Urine Bilirubin Neg Urine Urobilinogen Dipstick 0.2 mg/dL Urine Leukocyte Esterase Neg Urine RBC 6-10 /HPF Urine WBC 5-10 /HPF Urine Squamous Epithelial Cells Occ /LPF Urine Bacteria Few /HPF Current Medications Medications (Trade) Dose Ordered Sig/Sonia Route PRN Reason Start Time Stop Time Status Last Admin Dose Admin Acetaminophen (Tylenol) 650 mg PRN Q6HRS PRN PO MILD PAIN / TEMP > 100.3'F 08/01/20 15:45 08/04/20 10:19 Multi-Ingredient Ointment (Analgesic [place]) 1 olu PRN QID PRN TP MUSCLE PAIN 08/01/20 15:45 Al Hydroxide/Mg Hydroxide (Mylanta Plus Xs) 15 ml PRN AFTMEALHC PRN PO DYSPEPSIA 08/01/20 15:45 Magnesium Hydroxide (Milk Of Magnesia) 2,400 mg PRN QHS PRN PO CONSTIPATION 08/01/20 15:45 Fenofibrate (Tricor) 48 mg DAILY PO 08/02/20 09:00 08/04/20 09:15 Fluticasone Propionate (Flonase) 2 spray DAILY NS 08/02/20 09:00 08/04/20 09:16 Metoprolol Succinate (Toprol Xl) 50 mg DAILY PO 08/02/20 09:00 08/04/20 09:16 Mirtazapine (Remeron) 15 mg QHS PO 08/01/20 21:00 08/03/20 18:01 DC 08/02/20 20:59 Olanzapine (ZyPREXA ZYDIS) 5 mg DAILY PO 08/02/20 09:00 08/03/20 18:01 DC 08/03/20 09:47 Pantoprazole Sodium (Protonix) 40 mg DAILY PO 08/02/20 09:00 08/04/20 09:15 Non-Formulary Medication (Lutein ) 20 mg DAILY PO 08/02/20 09:00 UNV Multivitamins/ Calcium (Thera-M Plus) 1 tab DAILY PO 08/02/20 09:00 08/04/20 09:15 Olanzapine (ZyPREXA ZYDIS) 2.5 mg PRN Q2HR PRN PO PSYCHOSIS 08/01/20 23:30 08/04/20 09:30 Trazodone HCl (Desyrel) 50 mg PRN QHS PRN PO INSOMNIA, MAY REPEAT X2 08/01/20 23:30 08/05/20 02:39 Melatonin (Melatonin) 3 mg QHS PO 08/02/20 21:00 08/04/20 21:09 Tamsulosin HCl (Flomax) 0.4 mg DAILY PO 08/03/20 09:00 08/03/20 12:33 DC 08/03/20 09:47 Tamsulosin HCl (Flomax) 0.4 mg 1X ONCE PO 08/02/20 21:00 08/02/20 21:01 DC 08/02/20 21:01 Tamsulosin HCl (Flomax) 0.4 mg BID PO 08/03/20 14:00 08/04/20 21:09 Risperidone (RisperDAL) 0.25 mg QHS PO 08/03/20 21:00 08/04/20 21:09 I have reviewed the current psychotropics carefully including drug interactions. Risk benefit ratio favors no change other than as noted in my dictated progress note. Diagnosis: Problems: (1) Psychotic disorder (2) Impulse control disorder, unspecified (3) Vascular dementia with delusions (4) Anxiety disorder, unspecified (5) Vascular dementia with depression (6) Major neurocognitive disorder PRABHAKAR MOLINA MD Aug 05, 2020 08:31
--- NOTE | 2020-08-05 08:42 | PDOC ---
Exam Note: Manish Note: This note is a late entry for 08/04/2020 covers elements not covered in my initial note. Subjective: The patient was reviewed on telehealth rounds in the evening of 08/04/2020 with Roselyn ULLOA. Discussed with nursing staff, reviewed the chart. He slept 6-1/4 hours previous night. The patient has been sexually inappropriate, asking the female nursing staff to bend over and get naked with him. He did get Zyprexa 2.5 mg in the morning, then did better till 4 p.m. Bladder scan and straight catheter were done. UA C&S is awaited. He does have some symptoms of possible frontotemporal dementia. We will check CT head if not done recently. Review of Systems: Positive for tiredness. No CV, , pulmonary, eye, ENT system symptoms on review. Mental Status Exam: The patient is oriented to himself and situation. Speech coherent. Often verbal response is monosyllabic. Abstraction is fair. Computation is impaired. Language function is intact. Mood and affect somewhat anxious, labile. He was keeping his eyes closed on telehealth rounds. Laboratory Data: Reviewed. Impression: Major neurocognitive disorder Alzheimer vascular with delusion, depression, behavioral disturbance. Anxiety disorder unspecified. Impulse control disorder. Plan: No change from initial note. Assessment: Vital Signs/I&O: Vital Signs Date Time Temp Pulse Resp B/P (MAP) Pulse Ox O2 Delivery O2 Flow Rate FiO2 08/05/20 06:29 98.4 97 16 134/90 (105) 92 08/04/20 15:00 Room Air I & O 08/04/20 08/04/20 08/05/20 14:59 22:59 06:59 Intake Total 200 ml 720 ml Output Total 380 ml Balance 200 ml 720 ml -380 ml Labs: Laboratory Tests Test 08/04/20 16:00 Urine Collection Type Unknown Urine Color [place] Urine Clarity Clear Urine pH 5.5 Urine Specific [place] >=1.030 Urine Protein Trace (NEG-TRACE) Urine Glucose (UA) Neg mg/dL (NEG) Urine Ketones (Stick) Neg mg/dL (NEG) Urine Blood Trace (NEG) Urine Nitrite Pos (NEG) Urine Bilirubin Neg (NEG) Urine Urobilinogen Dipstick 0.2 mg/dL (0.2 mg/dL) Urine Leukocyte Esterase Neg (NEG) Urine RBC 6-10 /HPF (0-2) Urine WBC 5-10 /HPF (0-4) Urine Squamous Epithelial Cells Occ /LPF Urine Bacteria Few /HPF (0-FEW) Current Medications: Meds: Laboratory Tests Test 08/04/20 16:00 Urine Collection Type Unknown Urine Color [place] Urine Clarity Clear Urine pH 5.5 Urine Specific [place] >=1.030 Urine Protein Trace Urine Glucose (UA) Neg mg/dL Urine Ketones (Stick) Neg mg/dL Urine Blood Trace Urine Nitrite Pos Urine Bilirubin Neg Urine Urobilinogen Dipstick 0.2 mg/dL Urine Leukocyte Esterase Neg Urine RBC 6-10 /HPF Urine WBC 5-10 /HPF Urine Squamous Epithelial Cells Occ /LPF Urine Bacteria Few /HPF Current Medications Medications (Trade) Dose Ordered Sig/Sonia Route PRN Reason Start Time Stop Time Status Last Admin Dose Admin Acetaminophen (Tylenol) 650 mg PRN Q6HRS PRN PO MILD PAIN / TEMP > 100.3'F 08/01/20 15:45 08/04/20 10:19 Multi-Ingredient Ointment (Analgesic [place]) 1 olu PRN QID PRN TP MUSCLE PAIN 08/01/20 15:45 Al Hydroxide/Mg Hydroxide (Mylanta Plus Xs) 15 ml PRN AFTMEALHC PRN PO DYSPEPSIA 08/01/20 15:45 Magnesium Hydroxide (Milk Of Magnesia) 2,400 mg PRN QHS PRN PO CONSTIPATION 08/01/20 15:45 Fenofibrate (Tricor) 48 mg DAILY PO 08/02/20 09:00 08/04/20 09:15 Fluticasone Propionate (Flonase) 2 spray DAILY NS 08/02/20 09:00 08/04/20 09:16 Metoprolol Succinate (Toprol Xl) 50 mg DAILY PO 08/02/20 09:00 08/04/20 09:16 Mirtazapine (Remeron) 15 mg QHS PO 08/01/20 21:00 08/03/20 18:01 DC 08/02/20 20:59 Olanzapine (ZyPREXA ZYDIS) 5 mg DAILY PO 08/02/20 09:00 08/03/20 18:01 DC 08/03/20 09:47 Pantoprazole Sodium (Protonix) 40 mg DAILY PO 08/02/20 09:00 08/04/20 09:15 Non-Formulary Medication (Lutein ) 20 mg DAILY PO 08/02/20 09:00 UNV Multivitamins/ Calcium (Thera-M Plus) 1 tab DAILY PO 08/02/20 09:00 08/04/20 09:15 Olanzapine (ZyPREXA ZYDIS) 2.5 mg PRN Q2HR PRN PO PSYCHOSIS 08/01/20 23:30 08/04/20 09:30 Trazodone HCl (Desyrel) 50 mg PRN QHS PRN PO INSOMNIA, MAY REPEAT X2 08/01/20 23:30 08/05/20 02:39 Melatonin (Melatonin) 3 mg QHS PO 08/02/20 21:00 08/04/20 21:09 Tamsulosin HCl (Flomax) 0.4 mg DAILY PO 08/03/20 09:00 08/03/20 12:33 DC 08/03/20 09:47 Tamsulosin HCl (Flomax) 0.4 mg 1X ONCE PO 08/02/20 21:00 08/02/20 21:01 DC 08/02/20 21:01 Tamsulosin HCl (Flomax) 0.4 mg BID PO 08/03/20 14:00 08/04/20 21:09 Risperidone (RisperDAL) 0.25 mg QHS PO 08/03/20 21:00 08/04/20 21:09 I have reviewed the current psychotropics carefully including drug interactions. Risk benefit ratio favors no change other than as noted in my dictated progress note. Diagnosis: Problems: (1) Psychotic disorder (2) Impulse control disorder, unspecified (3) Vascular dementia with delusions (4) Anxiety disorder, unspecified (5) Vascular dementia with depression (6) Major neurocognitive disorder PRABHAKAR MOLINA MD Aug 05, 2020 08:42
[2020-08-05] MEDS: FLUTICASONE 50MCG/NASAL SPRAY 16GM BOTTLE. NS SCH (09:00)
[2020-08-05] MEDS: TAMSULOSIN 0.4 MG CAP.ER.24H. PO SCH ×2 (11:32→20:05)
[2020-08-05] MEDS: PANTOPRAZOLE 40 MG TABLET. PO SCH (11:32)
[2020-08-05] MEDS: FENOFIBRATE NANOCRYSTALLIZED 48 MG TABLET PO SCH (11:32)
[2020-08-05] MEDS: MULTIVITAMIN with MINERAL TABLET. PO SCH (11:32)
[2020-08-05] MEDS: METOPROLOL SUCC 24HR ER 50 MG TAB.ER.24H. PO SCH (11:33)
--- NOTE | 2020-08-05 14:46 | NUR ---
Pt has been pleasantly confused during shift. He is orientated to self only. He denies SI/HI, denies pain. He is pleasant and appropriate in conversation and behaviors thus far. He has been discovered multiple times wandering into other pt's rooms due to believing it is his own. He is often redirected back to his assigned room. His appetite appears appropriate; he ate about 75% of his lunch except for the chocolate cake. At approx 1430 his called for an update on his current status which was provided by this nurse. His reminded this nurse that he has top dentures that need to be removed and cleaned HS. He has no complaints regarding urination, however he has not been observed voiding yet this shift. He did have one small BM however. Will continue to monitor and pass to next shift
[2020-08-05 16:30] VITALS: BP 130/88
[2020-08-05] MEDS: ACETAMINOPHEN 325 MG TABLET PO PRN (18:09)
--- NOTE | 2020-08-05 18:19 | NUR ---
Spike began to wander the hallways, door checking, exit seeking. He began to violently yank on locked doors and yelling at staff to get out of his house. He increased in escalation with behaviors, including throwing his shoes at staff. Redirection and de-escalation was unsuccessful. Zyprexa 2.5 mg PO administered.
[2020-08-05] MEDS: risperiDONE 0.25 MG TABLET. PO SCH (20:04)
[2020-08-05] MEDS: MELATONIN 3 MG TABLET PO SCH (20:05)
[2020-08-05] MEDS: traZODone 100 MG TABLET. PO SCH (20:05)
--- NOTE | 2020-08-05 21:10 | PDOC ---
Exam Note: Manish Note: Please also refer to the separate dictated note~for this date of service dictated separately.~Patient seen individually. Discussed the patient with Nursing staff reviewed the chart.~Reviewed interim history and current functioning. Reviewed vital signs,~Labs/ Radiology~and current medications noted below. Continue current treatment with the changes noted in the dictated addendum note Assessment: Vital Signs/I&O: Vital Signs Date Time Temp Pulse Resp B/P (MAP) Pulse Ox O2 Delivery O2 Flow Rate FiO2 08/05/20 16:30 98.6 80 22 130/88 (102) 97 08/04/20 15:00 Room Air I & O 08/04/20 08/04/20 08/05/20 14:59 22:59 06:59 Intake Total 200 ml 720 ml Output Total 380 ml Balance 200 ml 720 ml -380 ml Current Medications: Meds: Current Medications Medications (Trade) Dose Ordered Sig/Sonia Route PRN Reason Start Time Stop Time Status Last Admin Dose Admin Acetaminophen (Tylenol) 650 mg PRN Q6HRS PRN PO MILD PAIN / TEMP > 100.3'F 08/01/20 15:45 08/05/20 18:09 Multi-Ingredient Ointment (Analgesic [place]) 1 olu PRN QID PRN TP MUSCLE PAIN 08/01/20 15:45 Al Hydroxide/Mg Hydroxide (Mylanta Plus Xs) 15 ml PRN AFTMEALHC PRN PO DYSPEPSIA 08/01/20 15:45 Magnesium Hydroxide (Milk Of Magnesia) 2,400 mg PRN QHS PRN PO CONSTIPATION 08/01/20 15:45 Fenofibrate (Tricor) 48 mg DAILY PO 08/02/20 09:00 08/05/20 11:32 Fluticasone Propionate (Flonase) 2 spray DAILY NS 08/02/20 09:00 08/05/20 09:00 Metoprolol Succinate (Toprol Xl) 50 mg DAILY PO 08/02/20 09:00 08/05/20 11:33 Mirtazapine (Remeron) 15 mg QHS PO 08/01/20 21:00 08/03/20 18:01 DC 08/02/20 20:59 Olanzapine (ZyPREXA ZYDIS) 5 mg DAILY PO 08/02/20 09:00 08/03/20 18:01 DC 08/03/20 09:47 Pantoprazole Sodium (Protonix) 40 mg DAILY PO 08/02/20 09:00 08/05/20 11:32 Non-Formulary Medication (Lutein ) 20 mg DAILY PO 08/02/20 09:00 UNV Multivitamins/ Calcium (Thera-M Plus) 1 tab DAILY PO 08/02/20 09:00 08/05/20 11:32 Olanzapine (ZyPREXA ZYDIS) 2.5 mg PRN Q2HR PRN PO PSYCHOSIS 08/01/20 23:30 08/05/20 18:09 Trazodone HCl (Desyrel) 50 mg PRN QHS PRN PO INSOMNIA, MAY REPEAT X2 08/01/20 23:30 08/05/20 02:39 Melatonin (Melatonin) 3 mg QHS PO 08/02/20 21:00 08/05/20 20:05 Tamsulosin HCl (Flomax) 0.4 mg DAILY PO 08/03/20 09:00 08/03/20 12:33 DC 08/03/20 09:47 Tamsulosin HCl (Flomax) 0.4 mg 1X ONCE PO 08/02/20 21:00 08/02/20 21:01 DC 08/02/20 21:01 Tamsulosin HCl (Flomax) 0.4 mg BID PO 08/03/20 14:00 08/05/20 20:05 Risperidone (RisperDAL) 0.25 mg QHS PO 08/03/20 21:00 08/05/20 20:04 Trazodone HCl (Desyrel) 100 mg QHS PO 08/05/20 21:00 08/05/20 20:05 Current Medications Medications (Trade) Dose Ordered Sig/[place] Route PRN Reason Start Time Stop Time Status Last Admin Dose Admin Trazodone HCl (Desyrel) 100 mg QHS PO 08/05/20 21:00 08/05/20 20:05 I have reviewed the current psychotropics carefully including drug interactions. Risk benefit ratio favors no change other than as noted in my dictated progress note. Diagnosis: Problems: (1) Psychotic disorder (2) Impulse control disorder, unspecified (3) Vascular dementia with delusions (4) Anxiety disorder, unspecified (5) Vascular dementia with depression (6) Major neurocognitive disorder PRABHAKAR MOLINA MD Aug 05, 2020 21:10
--- NOTE | 2020-08-06 02:44 | NUR ---
Patient is located in the secured hallway on assumption of care. He had been placed there by day shift for escalating behaviors. He attempted to swat at day shift nurse when she tried to redirect him during shift report. Staff assist of 2 to get patient to sit back down in the chair. He was making faces through the window, banging loudly on the glass and the door of the nurses station, door checking, and making sexually inappropriate comments to female staff members. He continued with this behavior for approximately 45 minutes before he sat down and appeared to be calming down. Patient was compliant with assessments and medications whole, even thanking this nurse after he took them. He stated, "I sure am tired." At that point, he was assisted to his room. Staff brought him to the toilet, with no success. His brief at that time was dry. Patient has been retaining urine for approximately 4 days, needing to be bladder scanned and straight cathed to void. Due to patient behaviors on day shift, bladder scan or straight cath was unable to be performed. After patient was put to bed, staff assist of 3 was required in order to bladder scan the patient. Scan showed 477mL of urine in bladder. At 2235, Dr. Art was paged and apprised of the situation. No new orders received, he wants to continue with PRN straight cath. This nurse attempted to catheterize the patient with a staff assist of 2. Patient extremely agitated with procedure, yelling obscenities and attempting to kick and punch staff. Unable to straight cath patient due to swollen urethra. Nursing supervisor sample preparation on the unit shortly afterward. With staff assist of 3, she was able to obtain 600ml of dark orange urine via straight cath. Patient appears to be sleeping at present time. Will continue to monitor and report to oncoming staff.
[2020-08-06 06:17] VITALS: BP 156/99
[2020-08-06 06:27] VITALS: BP 138/67
[2020-08-06 07:42] LABS: BASO # 0.1 x10^3/uL (0.0-0.2); BASO % 1 % (0-3); EOS # 0.3 x10^3/uL (0.0-0.7); EOS % 4 % (0-3); HEMATOCRIT 45.5 % (39.0-53.0); HEMOGLOBIN 15.4 g/dL (13.0-17.5); LYMPH # 1.2 x10^3/uL (1.0-4.8); LYMPH % 15 % (24-48); MEAN CORPUSCULAR HEMOGLOBIN 30 pg (25-35); MEAN CORPUSCULAR HGB CONC 34 g/dL (31-37); MEAN CORPUSCULAR VOLUME 90 fL (79-100); MONO % 12 % (0-9); NEUT # 5.4 x10^3uL (1.8-7.7); NEUT % 69 % (31-73); PLATELET COUNT 190 x10^3/uL (140-400); RED BLOOD COUNT 5.07 x10^6/uL (4.30-5.70); RED CELL DISTRIBUTION WIDTH 13.4 % (11.5-14.5); WHITE BLOOD COUNT 7.9 x10^3/uL (4.0-11.0)
[2020-08-06 08:00] LABS: ALBUMIN 3.2 g/dL (3.4-5.0); ALBUMIN/GLOBULIN RATIO 0.9 (1.0-1.7); CALCIUM 8.5 mg/dL (8.5-10.1); CREATININE 1.1 mg/dL (0.7-1.3); GFR 65.1; POTASSIUM 3.7 mmol/L (3.5-5.1); TOTAL BILIRUBIN 1.1 mg/dL (0.2-1.0); TOTAL PROTEIN 6.8 g/dL (6.4-8.2)
--- NOTE | 2020-08-06 08:30 | PDOC ---
Exam Note: Manish Note: This note is a late entry for 08/05/2020 covers elements not covered in my initial note. Subjective: The patient was reviewed on telehealth rounds in the evening of 08/05/2020 with Jessica ULLOA. Discussed with nursing staff, reviewed the chart. He slept 1-1/2 hours previous night. Overall the patient had a very difficult day and I was called as an emergency in the evening due to his marked agitation, confusion. He had to be placed in the West hallway. He had a telephone conversation with his and daughter. We stopped the Remeron and Zyprexa due to his bladder retention and we will defer to Dr. Traylor/Dr. Art for further medical management. He will be having a bladder scan. Review of Systems: No CV, , pulmonary, eye, ENT system symptoms on review. Mental Status Exam: The patient is oriented to himself and situation. Speech coherent. Often verbal response is monosyllabic. Abstraction is fair. Computation is impaired. Language function is intact. Mood and affect somewhat anxious, labile. Laboratory Data: Reviewed. Impression: Major neurocognitive disorder Alzheimer vascular with delusion, depression, behavioral disturbance. Anxiety disorder unspecified. Impulse control disorder. Plan: Start trazodone 100 mg p.o. h.s. scheduled. Maintain rest of the psychotropics, Remeron, Zyprexa p.r.n., trazodone, melatonin, Risperdal which was initiated. We may need to adjust this further. Assessment: Vital Signs/I&O: Vital Signs Date Time Temp Pulse Resp B/P (MAP) Pulse Ox O2 Delivery O2 Flow Rate FiO2 08/06/20 06:27 97.3 93 20 138/67 (90) 93 Room Air I & O 08/05/20 08/05/20 08/06/20 15:00 23:00 07:00 Intake Total 360 ml 360 ml Balance 360 ml 360 ml Labs: Laboratory Tests Test 08/06/20 07:28 White Blood Count 7.9 x10^3/uL (4.0-11.0) Red Blood Count 5.07 x10^6/uL (4.30-5.70) Hemoglobin 15.4 g/dL (13.0-17.5) Hematocrit 45.5 % (39.0-53.0) Mean Corpuscular Volume 90 fL (79-100) Mean Corpuscular Hemoglobin 30 pg (25-35) Mean Corpuscular Hemoglobin Concent 34 g/dL (31-37) Red Cell Distribution Width 13.4 % (11.5-14.5) Platelet Count 190 x10^3/uL (140-400) Neutrophils (%) (Auto) 69 % (31-73) Lymphocytes (%) (Auto) 15 % (24-48) L Monocytes (%) (Auto) 12 % (0-9) H Eosinophils (%) (Auto) 4 % (0-3) H Basophils (%) (Auto) 1 % (0-3) Neutrophils # (Auto) 5.4 x10^3uL (1.8-7.7) Lymphocytes # (Auto) 1.2 x10^3/uL (1.0-4.8) Monocytes # (Auto) 1.0 x10^3/uL (0.0-1.1) Eosinophils # (Auto) 0.3 x10^3/uL (0.0-0.7) Basophils # (Auto) 0.1 x10^3/uL (0.0-0.2) Sodium Level 142 mmol/L (136-145) Potassium Level 3.7 mmol/L (3.5-5.1) Chloride Level 106 mmol/L (98-107) Carbon Dioxide Level 30 mmol/L (21-32) Anion Gap 6 (6-14) Blood Urea Nitrogen 30 mg/dL (8-26) H Creatinine 1.1 mg/dL (0.7-1.3) Estimated GFR (Cockcroft-Gault) 65.1 BUN/Creatinine Ratio 27 (6-20) H Glucose Level 108 mg/dL (70-99) H Calcium Level 8.5 mg/dL (8.5-10.1) Total Bilirubin 1.1 mg/dL (0.2-1.0) H Aspartate Amino Transferase (AST) 79 U/L (15-37) H Alanine Aminotransferase (ALT) 61 U/L (16-63) Alkaline Phosphatase 69 U/L (46-116) Total Protein 6.8 g/dL (6.4-8.2) Albumin 3.2 g/dL (3.4-5.0) L Albumin/Globulin Ratio 0.9 (1.0-1.7) L Current Medications: Meds: Laboratory Tests Test 08/06/20 07:28 White Blood Count 7.9 x10^3/uL Red Blood Count 5.07 x10^6/uL Hemoglobin 15.4 g/dL Hematocrit 45.5 % Mean Corpuscular Volume 90 fL Mean Corpuscular Hemoglobin 30 pg Mean Corpuscular Hemoglobin Concent 34 g/dL Red Cell Distribution Width 13.4 % Platelet Count 190 x10^3/uL Neutrophils (%) (Auto) 69 % Lymphocytes (%) (Auto) 15 % Monocytes (%) (Auto) 12 % Eosinophils (%) (Auto) 4 % Basophils (%) (Auto) 1 % Neutrophils # (Auto) 5.4 x10^3uL Lymphocytes # (Auto) 1.2 x10^3/uL Monocytes # (Auto) 1.0 x10^3/uL Eosinophils # (Auto) 0.3 x10^3/uL Basophils # (Auto) 0.1 x10^3/uL Sodium Level 142 mmol/L Potassium Level 3.7 mmol/L Chloride Level 106 mmol/L Carbon Dioxide Level 30 mmol/L Anion Gap 6 Blood Urea Nitrogen 30 mg/dL Creatinine 1.1 mg/dL Estimated GFR (Cockcroft-Gault) 65.1 BUN/Creatinine Ratio 27 Glucose Level 108 mg/dL Calcium Level 8.5 mg/dL Total Bilirubin 1.1 mg/dL Aspartate Amino Transf (AST/SGOT) 79 U/L Alanine Aminotransferase (ALT/SGPT) 61 U/L Alkaline Phosphatase 69 U/L Total Protein 6.8 g/dL Albumin 3.2 g/dL Albumin/Globulin Ratio 0.9 Current Medications Medications (Trade) Dose Ordered Sig/Sonia Route PRN Reason Start Time Stop Time Status Last Admin Dose Admin Acetaminophen (Tylenol) 650 mg PRN Q6HRS PRN PO MILD PAIN / TEMP > 100.3'F 08/01/20 15:45 08/05/20 18:09 Multi-Ingredient Ointment (Analgesic [place]) 1 olu PRN QID PRN TP MUSCLE PAIN 08/01/20 15:45 Al Hydroxide/Mg Hydroxide (Mylanta Plus Xs) 15 ml PRN AFTMEALHC PRN PO DYSPEPSIA 08/01/20 15:45 Magnesium Hydroxide (Milk Of Magnesia) 2,400 mg PRN QHS PRN PO CONSTIPATION 08/01/20 15:45 08/06/20 06:06 Fenofibrate (Tricor) 48 mg DAILY PO 08/02/20 09:00 08/05/20 11:32 Fluticasone Propionate (Flonase) 2 spray DAILY NS 08/02/20 09:00 08/05/20 09:00 Metoprolol Succinate (Toprol Xl) 50 mg DAILY PO 08/02/20 09:00 08/05/20 11:33 Mirtazapine (Remeron) 15 mg QHS PO 08/01/20 21:00 08/03/20 18:01 DC 08/02/20 20:59 Olanzapine (ZyPREXA ZYDIS) 5 mg DAILY PO 08/02/20 09:00 08/03/20 18:01 DC 08/03/20 09:47 Pantoprazole Sodium (Protonix) 40 mg DAILY PO 08/02/20 09:00 08/05/20 11:32 Non-Formulary Medication (Lutein ) 20 mg DAILY PO 08/02/20 09:00 UNV Multivitamins/ Calcium (Thera-M Plus) 1 tab DAILY PO 08/02/20 09:00 08/05/20 11:32 Olanzapine (ZyPREXA ZYDIS) 2.5 mg PRN Q2HR PRN PO PSYCHOSIS 08/01/20 23:30 08/05/20 18:09 Trazodone HCl (Desyrel) 50 mg PRN QHS PRN PO INSOMNIA, MAY REPEAT X2 08/01/20 23:30 08/05/20 02:39 Melatonin (Melatonin) 3 mg QHS PO 08/02/20 21:00 08/05/20 20:05 Tamsulosin HCl (Flomax) 0.4 mg DAILY PO 08/03/20 09:00 08/03/20 12:33 DC 08/03/20 09:47 Tamsulosin HCl (Flomax) 0.4 mg 1X ONCE PO 08/02/20 21:00 08/02/20 21:01 DC 08/02/20 21:01 Tamsulosin HCl (Flomax) 0.4 mg BID PO 08/03/20 14:00 08/05/20 20:05 Risperidone (RisperDAL) 0.25 mg QHS PO 08/03/20 21:00 08/05/20 20:04 Trazodone HCl (Desyrel) 100 mg QHS PO 08/05/20 21:00 08/05/20 20:05 Laboratory Tests Test 08/06/20 07:28 White Blood Count 7.9 x10^3/uL Red Blood Count 5.07 x10^6/uL Hemoglobin 15.4 g/dL Hematocrit 45.5 % Mean Corpuscular Volume 90 fL Mean Corpuscular Hemoglobin 30 pg Mean Corpuscular Hemoglobin Concent 34 g/dL Red Cell Distribution Width 13.4 % Platelet Count 190 x10^3/uL Neutrophils (%) (Auto) 69 % Lymphocytes (%) (Auto) 15 % Monocytes (%) (Auto) 12 % Eosinophils (%) (Auto) 4 % Basophils (%) (Auto) 1 % Neutrophils # (Auto) 5.4 x10^3uL Lymphocytes # (Auto) 1.2 x10^3/uL Monocytes # (Auto) 1.0 x10^3/uL Eosinophils # (Auto) 0.3 x10^3/uL Basophils # (Auto) 0.1 x10^3/uL Sodium Level 142 mmol/L Potassium Level 3.7 mmol/L Chloride Level 106 mmol/L Carbon Dioxide Level 30 mmol/L Anion Gap 6 Blood Urea Nitrogen 30 mg/dL Creatinine 1.1 mg/dL Estimated GFR (Cockcroft-Gault) 65.1 BUN/Creatinine Ratio 27 Glucose Level 108 mg/dL Calcium Level 8.5 mg/dL Total Bilirubin 1.1 mg/dL Aspartate Amino Transf (AST/SGOT) 79 U/L Alanine Aminotransferase (ALT/SGPT) 61 U/L Alkaline Phosphatase 69 U/L Total Protein 6.8 g/dL Albumin 3.2 g/dL Albumin/Globulin Ratio 0.9 Current Medications Medications (Trade) Dose Ordered Sig/Sonia Route PRN Reason Start Time Stop Time Status Last Admin Dose Admin Acetaminophen (Tylenol) 650 mg PRN Q6HRS PRN PO MILD PAIN / TEMP > 100.3'F 08/01/20 15:45 08/05/20 18:09 Multi-Ingredient Ointment (Analgesic [place]) 1 olu PRN QID PRN TP MUSCLE PAIN 08/01/20 15:45 Al Hydroxide/Mg Hydroxide (Mylanta Plus Xs) 15 ml PRN AFTMEALHC PRN PO DYSPEPSIA 08/01/20 15:45 Magnesium Hydroxide (Milk Of Magnesia) 2,400 mg PRN QHS PRN PO CONSTIPATION 08/01/20 15:45 08/06/20 06:06 Fenofibrate (Tricor) 48 mg DAILY PO 08/02/20 09:00 08/05/20 11:32 Fluticasone Propionate (Flonase) 2 spray DAILY NS 08/02/20 09:00 08/05/20 09:00 Metoprolol Succinate (Toprol Xl) 50 mg DAILY PO 08/02/20 09:00 08/05/20 11:33 Mirtazapine (Remeron) 15 mg QHS PO 08/01/20 21:00 08/03/20 18:01 DC 08/02/20 20:59 Olanzapine (ZyPREXA ZYDIS) 5 mg DAILY PO 08/02/20 09:00 08/03/20 18:01 DC 08/03/20 09:47 Pantoprazole Sodium (Protonix) 40 mg DAILY PO 08/02/20 09:00 08/05/20 11:32 Non-Formulary Medication (Lutein ) 20 mg DAILY PO 08/02/20 09:00 UNV Multivitamins/ Calcium (Thera-M Plus) 1 tab DAILY PO 08/02/20 09:00 08/05/20 11:32 Olanzapine (ZyPREXA ZYDIS) 2.5 mg PRN Q2HR PRN PO PSYCHOSIS 08/01/20 23:30 08/05/20 18:09 Trazodone HCl (Desyrel) 50 mg PRN QHS PRN PO INSOMNIA, MAY REPEAT X2 08/01/20 23:30 08/05/20 02:39 Melatonin (Melatonin) 3 mg QHS PO 08/02/20 21:00 08/05/20 20:05 Tamsulosin HCl (Flomax) 0.4 mg DAILY PO 08/03/20 09:00 08/03/20 12:33 DC 08/03/20 09:47 Tamsulosin HCl (Flomax) 0.4 mg 1X ONCE PO 08/02/20 21:00 08/02/20 21:01 DC 08/02/20 21:01 Tamsulosin HCl (Flomax) 0.4 mg BID PO 08/03/20 14:00 08/05/20 20:05 Risperidone (RisperDAL) 0.25 mg QHS PO 08/03/20 21:00 08/05/20 20:04 Trazodone HCl (Desyrel) 100 mg QHS PO 08/05/20 21:00 08/05/20 20:05 Current Medications Medications (Trade) Dose Ordered Sig/Sonia Route PRN Reason Start Time Stop Time Status Last Admin Dose Admin Trazodone HCl (Desyrel) 100 mg QHS PO 08/05/20 21:00 08/05/20 20:05 I have reviewed the current psychotropics carefully including drug interactions. Risk benefit ratio favors no change other than as noted in my dictated progress note. Diagnosis: Problems: (1) Psychotic disorder (2) Impulse control disorder, unspecified (3) Vascular dementia with delusions (4) Anxiety disorder, unspecified (5) Vascular dementia with depression (6) Major neurocognitive disorder PRABHAKAR MOLINA MD Aug 06, 2020 08:30
[2020-08-06] MEDS: FLUTICASONE 50MCG/NASAL SPRAY 16GM BOTTLE. NS SCH (08:40)
[2020-08-06] MEDS: MULTIVITAMIN with MINERAL TABLET. PO SCH (08:40)
[2020-08-06] MEDS: FENOFIBRATE NANOCRYSTALLIZED 48 MG TABLET PO SCH (08:40)
[2020-08-06] MEDS: TAMSULOSIN 0.4 MG CAP.ER.24H. PO SCH ×2 (08:40→20:53)
[2020-08-06] MEDS: METOPROLOL SUCC 24HR ER 50 MG TAB.ER.24H. PO SCH (08:40)
[2020-08-06] MEDS: PANTOPRAZOLE 40 MG TABLET. PO SCH (08:40)
--- NOTE | 2020-08-06 09:40 | RAD ---
CT head without contrast 08/06/2020. Reason for exam: Confusion. Noncontrast images were performed. Exposure: One or more of the following individualized dose reducti on techniques were utilized for this examination: 1. Automated exposure control 2. Adjustment of th e mA and/or kV according to patient size 3. Use of iterative reconstruction technique. There are no available comparison studies. FINDINGS: There is no apparent intracranial mass, hemorrhage or abnormal extra-axial fluid collection . There is mild low-attenuation in the cerebral white matter most commonly indicating chronic small v essel ischemic injury. No other region of abnormal density is seen. The ventricles and basilar cister ns are normally positioned. The lateral and third ventricles are relatively prominent in size without apparent obstructing mass. The sinuses and mastoid air cells are clear. IMPRESSION: No definite acute findings. Ventricular size is prominent. This could relate to atrophy, although also raise the possibility of normal pressure hydrocephalus. Electronically signed by: Karthik Bhat Jr., MD (08/06/2020 9:29 AM) [id number]
--- NOTE | 2020-08-06 11:15 | NUR ---
Nursing staff discussed with Dr Art about Pt's consistent urinary retention, frequent straight caths, and pt's UA results being >100,000 gram negative rods. Verbal orders given to start Levoquin 250 mg PO daily for 5 days and start pearson catheter with leg bag.
[2020-08-06] MEDS: levoFLOXacin 250 MG TABLET PO SCH (12:08)
--- NOTE | 2020-08-06 13:53 | NUR ---
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 He denied HI/SI, denied pain. He was orientated to person and place, however he believes he is in the hospital because he had a heart attack. Pt reorientated regarding the circumstances surrounding his hospitalization and he verbalized understanding. He denied pain or discomfort during morning assessment and was complaint with medications. Pt has urinary retention/frequent straight cathing and order was given by Dr Art to start Levaquin 250 mg PO daily for 5 days. First dose was given at approx 1200 and pt tolerated it well. Order was also given by Dr Art to start and maintain pearson with leg bag. This has not been able to be initiated d/t change in pt condition and behavior at approx 1330. At that time pt began to display verbal and physical aggression towards staff including digging his fingernails into staff member's gloved hands so hard indentations were made into their hands. After being escorted to the secure hallway pt began to hit windows and doors and insult staff members. Dr Juan Pablo cagle and order was given to increase Zyprexa 2.5 mg to 5 mg PO Q2HPRN NTE 20 mg/24H. Increased dose was administered and at this time staff is waiting to assess effectiveness. Will continue to monitor.
--- NOTE | 2020-08-06 15:49 | NUR ---
Pt woke from a slight nap in the quit hallway and began to display irritation and agitation again. He insulted staff members, mocked staff members' physical appearances, and swatted at staff. Efforts by staff to assist in toileting was violently refuted by pt. He insisted on being allowed to exit [facility]. Zydis 5 mg PO administered for anxiety/agitation.
[2020-08-06] MEDS ORDERED: LORazepam 1 MG TABLET PO ONE (18:15)
[2020-08-06] MEDS ORDERED: LORazepam 1 MG TABLET PO PRN (18:30)
--- NOTE | 2020-08-06 19:00 | NUR ---
!$ fr Coude catheter placed by day staff with merchandising assistant positioning help. Pt was resistive, delusional, sexually inappropriate with staff. He was pre medicated with 1 MG ativan po by day staff. approx 600 cc dark claudia urine drained then pearson secured to remain in place. Addendum: 08/07/20 at 0152 by RAEGAN FERRARO RN 14 sami Coude catheter
[2020-08-06] MEDS: traZODone 100 MG TABLET. PO SCH (20:53)
[2020-08-06] MEDS: MELATONIN 3 MG TABLET PO SCH (20:53)
[2020-08-06] MEDS: ACETAMINOPHEN 325 MG TABLET PO PRN (20:53)
[2020-08-06] MEDS: risperiDONE 0.25 MG TABLET. PO SCH (20:53)
--- NOTE | 2020-08-06 21:13 | PDOC ---
Exam Note: Manish Note: Please also refer to the separate dictated note~for this date of service dictated separately.~Patient seen individually. Discussed the patient with Nursing staff reviewed the chart.~Reviewed interim history and current functioning. Reviewed vital signs,~Labs/ Radiology~and current medications noted below. Continue current treatment with the changes noted in the dictated addendum note Assessment: Vital Signs/I&O: Vital Signs Date Time Temp Pulse Resp B/P (MAP) Pulse Ox O2 Delivery O2 Flow Rate FiO2 08/06/20 08:40 93 138/67 08/06/20 06:27 97.3 20 93 Room Air I & O 08/05/20 08/05/20 08/06/20 14:59 22:59 06:59 Intake Total 360 ml 360 ml Balance 360 ml 360 ml Labs: Laboratory Tests Test 08/06/20 07:28 White Blood Count 7.9 x10^3/uL (4.0-11.0) Red Blood Count 5.07 x10^6/uL (4.30-5.70) Hemoglobin 15.4 g/dL (13.0-17.5) Hematocrit 45.5 % (39.0-53.0) Mean Corpuscular Volume 90 fL (79-100) Mean Corpuscular Hemoglobin 30 pg (25-35) Mean Corpuscular Hemoglobin Concent 34 g/dL (31-37) Red Cell Distribution Width 13.4 % (11.5-14.5) Platelet Count 190 x10^3/uL (140-400) Neutrophils (%) (Auto) 69 % (31-73) Lymphocytes (%) (Auto) 15 % (24-48) L Monocytes (%) (Auto) 12 % (0-9) H Eosinophils (%) (Auto) 4 % (0-3) H Basophils (%) (Auto) 1 % (0-3) Neutrophils # (Auto) 5.4 x10^3uL (1.8-7.7) Lymphocytes # (Auto) 1.2 x10^3/uL (1.0-4.8) Monocytes # (Auto) 1.0 x10^3/uL (0.0-1.1) Eosinophils # (Auto) 0.3 x10^3/uL (0.0-0.7) Basophils # (Auto) 0.1 x10^3/uL (0.0-0.2) Sodium Level 142 mmol/L (136-145) Potassium Level 3.7 mmol/L (3.5-5.1) Chloride Level 106 mmol/L (98-107) Carbon Dioxide Level 30 mmol/L (21-32) Anion Gap 6 (6-14) Blood Urea Nitrogen 30 mg/dL (8-26) H Creatinine 1.1 mg/dL (0.7-1.3) Estimated GFR (Cockcroft-Gault) 65.1 BUN/Creatinine Ratio 27 (6-20) H Glucose Level 108 mg/dL (70-99) H Calcium Level 8.5 mg/dL (8.5-10.1) Total Bilirubin 1.1 mg/dL (0.2-1.0) H Aspartate Amino Transferase (AST) 79 U/L (15-37) H Alanine Aminotransferase (ALT) 61 U/L (16-63) Alkaline Phosphatase 69 U/L (46-116) Total Protein 6.8 g/dL (6.4-8.2) Albumin 3.2 g/dL (3.4-5.0) L Albumin/Globulin Ratio 0.9 (1.0-1.7) L Current Medications: Meds: Laboratory Tests Test 08/06/20 07:28 White Blood Count 7.9 x10^3/uL Red Blood Count 5.07 x10^6/uL Hemoglobin 15.4 g/dL Hematocrit 45.5 % Mean Corpuscular Volume 90 fL Mean Corpuscular Hemoglobin 30 pg Mean Corpuscular Hemoglobin Concent 34 g/dL Red Cell Distribution Width 13.4 % Platelet Count 190 x10^3/uL Neutrophils (%) (Auto) 69 % Lymphocytes (%) (Auto) 15 % Monocytes (%) (Auto) 12 % Eosinophils (%) (Auto) 4 % Basophils (%) (Auto) 1 % Neutrophils # (Auto) 5.4 x10^3uL Lymphocytes # (Auto) 1.2 x10^3/uL Monocytes # (Auto) 1.0 x10^3/uL Eosinophils # (Auto) 0.3 x10^3/uL Basophils # (Auto) 0.1 x10^3/uL Sodium Level 142 mmol/L Potassium Level 3.7 mmol/L Chloride Level 106 mmol/L Carbon Dioxide Level 30 mmol/L Anion Gap 6 Blood Urea Nitrogen 30 mg/dL Creatinine 1.1 mg/dL Estimated GFR (Cockcroft-Gault) 65.1 BUN/Creatinine Ratio 27 Glucose Level 108 mg/dL Calcium Level 8.5 mg/dL Total Bilirubin 1.1 mg/dL Aspartate Amino Transf (AST/SGOT) 79 U/L Alanine Aminotransferase (ALT/SGPT) 61 U/L Alkaline Phosphatase 69 U/L Total Protein 6.8 g/dL Albumin 3.2 g/dL Albumin/Globulin Ratio 0.9 Current Medications Medications (Trade) Dose Ordered Sig/Sonia Route PRN Reason Start Time Stop Time Status Last Admin Dose Admin Acetaminophen (Tylenol) 650 mg PRN Q6HRS PRN PO MILD PAIN / TEMP > 100.3'F 08/01/20 15:45 08/06/20 20:53 Multi-Ingredient Ointment (Analgesic [place]) 1 olu PRN QID PRN TP MUSCLE PAIN 08/01/20 15:45 Al Hydroxide/Mg Hydroxide (Mylanta Plus Xs) 15 ml PRN AFTMEALHC PRN PO DYSPEPSIA 08/01/20 15:45 Magnesium Hydroxide (Milk Of Magnesia) 2,400 mg PRN QHS PRN PO CONSTIPATION 08/01/20 15:45 08/06/20 06:06 Fenofibrate (Tricor) 48 mg DAILY PO 08/02/20 09:00 08/06/20 08:40 Fluticasone Propionate (Flonase) 2 spray DAILY NS 08/02/20 09:00 08/06/20 08:40 Metoprolol Succinate (Toprol Xl) 50 mg DAILY PO 08/02/20 09:00 08/06/20 08:40 Mirtazapine (Remeron) 15 mg QHS PO 08/01/20 21:00 08/03/20 18:01 DC 08/02/20 20:59 Olanzapine (ZyPREXA ZYDIS) 5 mg DAILY PO 08/02/20 09:00 08/03/20 18:01 DC 08/03/20 09:47 Pantoprazole Sodium (Protonix) 40 mg DAILY PO 08/02/20 09:00 08/06/20 08:40 Non-Formulary Medication (Lutein ) 20 mg DAILY PO 08/02/20 09:00 UNV Multivitamins/ Calcium (Thera-M Plus) 1 tab DAILY PO 08/02/20 09:00 08/06/20 08:40 Olanzapine (ZyPREXA ZYDIS) 2.5 mg PRN Q2HR PRN PO PSYCHOSIS 08/01/20 23:30 08/06/20 13:43 DC 08/06/20 09:53 Trazodone HCl (Desyrel) 50 mg PRN QHS PRN PO INSOMNIA, MAY REPEAT X2 08/01/20 23:30 08/05/20 02:39 Melatonin (Melatonin) 3 mg QHS PO 08/02/20 21:00 08/06/20 20:53 Tamsulosin HCl (Flomax) 0.4 mg DAILY PO 08/03/20 09:00 08/03/20 12:33 DC 08/03/20 09:47 Tamsulosin HCl (Flomax) 0.4 mg 1X ONCE PO 08/02/20 21:00 08/02/20 21:01 DC 08/02/20 21:01 Tamsulosin HCl (Flomax) 0.4 mg BID PO 08/03/20 14:00 08/06/20 20:53 Risperidone (RisperDAL) 0.25 mg QHS PO 08/03/20 21:00 08/06/20 20:53 Trazodone HCl (Desyrel) 100 mg QHS PO 08/05/20 21:00 08/06/20 20:53 Levofloxacin (Levaquin) 250 mg DAILY PO 08/06/20 11:30 08/10/20 23:59 08/06/20 12:08 Olanzapine (ZyPREXA ZYDIS) 5 mg PRN Q2HR PRN PO PSYCHOSIS 08/06/20 13:45 08/06/20 15:49 Lorazepam (Ativan) 1 mg 1X ONCE PO 08/06/20 18:15 08/06/20 18:22 DC Lorazepam (Ativan) 1 mg 1X PRN PO ANXIETY / AGITATION 08/06/20 18:30 08/07/20 00:00 08/06/20 18:52 Current Medications Medications (Trade) Dose Ordered Sig/Sonia Route PRN Reason Start Time Stop Time Status Last Admin Dose Admin Levofloxacin (Levaquin) 250 mg DAILY PO 08/06/20 11:30 08/10/20 23:59 08/06/20 12:08 Olanzapine (ZyPREXA ZYDIS) 5 mg PRN Q2HR PRN PO PSYCHOSIS 08/06/20 13:45 08/06/20 15:49 Lorazepam (Ativan) 1 mg 1X PRN PO ANXIETY / AGITATION 08/06/20 18:30 08/07/20 00:00 08/06/20 18:52 I have reviewed the current psychotropics carefully including drug interactions. Risk benefit ratio favors no change other than as noted in my dictated progress note. Diagnosis: Problems: (1) Psychotic disorder (2) Impulse control disorder, unspecified (3) Vascular dementia with delusions (4) Anxiety disorder, unspecified (5) Vascular dementia with depression (6) Major neurocognitive disorder PRABHAKAR MOLINA MD Aug 06, 2020 21:12
[2020-08-07] MEDS: traZODone 50 MG TABLET. PO PRN (01:06)
[2020-08-07 05:54] VITALS: BP 138/92
[2020-08-07 06:53] LABS: BASO # 0.1 x10^3/uL (0.0-0.2); BASO % 1 % (0-3); EOS # 0.2 x10^3/uL (0.0-0.7); EOS % 2 % (0-3); HEMATOCRIT 44.2 % (39.0-53.0); HEMOGLOBIN 15.3 g/dL (13.0-17.5); LYMPH # 1.3 x10^3/uL (1.0-4.8); LYMPH % 14 % (24-48); MEAN CORPUSCULAR HEMOGLOBIN 31 pg (25-35); MEAN CORPUSCULAR HGB CONC 35 g/dL (31-37); MEAN CORPUSCULAR VOLUME 89 fL (79-100); MONO # 1.1 x10^3/uL (0.0-1.1); MONO % 11 % (0-9); NEUT # 6.7 x10^3uL (1.8-7.7); NEUT % 72 % (31-73); PLATELET COUNT 197 x10^3/uL (140-400); RED BLOOD COUNT 4.97 x10^6/uL (4.30-5.70); RED CELL DISTRIBUTION WIDTH 13.5 % (11.5-14.5); WHITE BLOOD COUNT 9.3 x10^3/uL (4.0-11.0)
[2020-08-07 07:11] LABS: ALBUMIN 3.3 g/dL (3.4-5.0); ALBUMIN/GLOBULIN RATIO 0.9 (1.0-1.7); CALCIUM 8.7 mg/dL (8.5-10.1); GFR 72.6; POTASSIUM 3.7 mmol/L (3.5-5.1); TOTAL BILIRUBIN 1.1 mg/dL (0.2-1.0); TOTAL PROTEIN 6.9 g/dL (6.4-8.2)
--- NOTE | 2020-08-07 08:07 | PDOC ---
Exam Note: Manish Note: This note is a late entry for 08/06/2020 covers elements not covered in my initial note. Subjective: The patient was reviewed on telehealth rounds in the evening of 08/06/2020 with Jessica ULLOA. Discussed with nursing staff, reviewed the chart. He slept 4-1/4 hours previous night. The patient has had a very difficult day. He has been irritable, angry, had to be placed in the West hallway to reduce stimuli. UA is positive. C&S is awaited. He is obsessive and anxious. Additionally he has bladder retention. We will defer to Dr. Traylor/Dr. Art. Hernandez is being placed per nursing staff whereas dual urine was 600 mL on 2 occasions. Review of Systems: No CV, , pulmonary, eye, ENT system symptoms on review. Mental Status Exam: The patient is oriented to himself and situation. Speech coherent. Often verbal response is monosyllabic. Abstraction is fair. Computation is impaired. Language function is intact. Mood and affect somewhat withdrawn, depressed. No active psychotic symptoms, suicidal or homicidal ideation. Laboratory Data: Reviewed. Impression: Major neurocognitive disorder Alzheimer vascular with delusion, depression, behavioral disturbance. Anxiety disorder unspecified. Impulse control disorder. Plan: No change from initial note. Assessment: Vital Signs/I&O: Vital Signs Date Time Temp Pulse Resp B/P (MAP) Pulse Ox O2 Delivery O2 Flow Rate FiO2 08/07/20 05:54 97.1 104 18 138/92 (107) 91 08/06/20 06:27 Room Air I & O 08/06/20 08/06/20 08/07/20 15:00 23:00 07:00 Intake Total 480 ml 200 ml 100 ml Balance 480 ml 200 ml 100 ml Labs: Laboratory Tests Test 08/07/20 06:38 White Blood Count 9.3 x10^3/uL (4.0-11.0) Red Blood Count 4.97 x10^6/uL (4.30-5.70) Hemoglobin 15.3 g/dL (13.0-17.5) Hematocrit 44.2 % (39.0-53.0) Mean Corpuscular Volume 89 fL (79-100) Mean Corpuscular Hemoglobin 31 pg (25-35) Mean Corpuscular Hemoglobin Concent 35 g/dL (31-37) Red Cell Distribution Width 13.5 % (11.5-14.5) Platelet Count 197 x10^3/uL (140-400) Neutrophils (%) (Auto) 72 % (31-73) Lymphocytes (%) (Auto) 14 % (24-48) L Monocytes (%) (Auto) 11 % (0-9) H Eosinophils (%) (Auto) 2 % (0-3) Basophils (%) (Auto) 1 % (0-3) Neutrophils # (Auto) 6.7 x10^3uL (1.8-7.7) Lymphocytes # (Auto) 1.3 x10^3/uL (1.0-4.8) Monocytes # (Auto) 1.1 x10^3/uL (0.0-1.1) Eosinophils # (Auto) 0.2 x10^3/uL (0.0-0.7) Basophils # (Auto) 0.1 x10^3/uL (0.0-0.2) Sodium Level 142 mmol/L (136-145) Potassium Level 3.7 mmol/L (3.5-5.1) Chloride Level 106 mmol/L (98-107) Carbon Dioxide Level 25 mmol/L (21-32) Anion Gap 11 (6-14) Blood Urea Nitrogen 30 mg/dL (8-26) H Creatinine 1.0 mg/dL (0.7-1.3) Estimated GFR (Cockcroft-Gault) 72.6 BUN/Creatinine Ratio 30 (6-20) H Glucose Level 111 mg/dL (70-99) H Calcium Level 8.7 mg/dL (8.5-10.1) Total Bilirubin 1.1 mg/dL (0.2-1.0) H Aspartate Amino Transferase (AST) 81 U/L (15-37) H Alanine Aminotransferase (ALT) 62 U/L (16-63) Alkaline Phosphatase 71 U/L (46-116) Total Protein 6.9 g/dL (6.4-8.2) Albumin 3.3 g/dL (3.4-5.0) L Albumin/Globulin Ratio 0.9 (1.0-1.7) L Current Medications: Meds: Laboratory Tests Test 08/07/20 06:38 White Blood Count 9.3 x10^3/uL Red Blood Count 4.97 x10^6/uL Hemoglobin 15.3 g/dL Hematocrit 44.2 % Mean Corpuscular Volume 89 fL Mean Corpuscular Hemoglobin 31 pg Mean Corpuscular Hemoglobin Concent 35 g/dL Red Cell Distribution Width 13.5 % Platelet Count 197 x10^3/uL Neutrophils (%) (Auto) 72 % Lymphocytes (%) (Auto) 14 % Monocytes (%) (Auto) 11 % Eosinophils (%) (Auto) 2 % Basophils (%) (Auto) 1 % Neutrophils # (Auto) 6.7 x10^3uL Lymphocytes # (Auto) 1.3 x10^3/uL Monocytes # (Auto) 1.1 x10^3/uL Eosinophils # (Auto) 0.2 x10^3/uL Basophils # (Auto) 0.1 x10^3/uL Sodium Level 142 mmol/L Potassium Level 3.7 mmol/L Chloride Level 106 mmol/L Carbon Dioxide Level 25 mmol/L Anion Gap 11 Blood Urea Nitrogen 30 mg/dL Creatinine 1.0 mg/dL Estimated GFR (Cockcroft-Gault) 72.6 BUN/Creatinine Ratio 30 Glucose Level 111 mg/dL Calcium Level 8.7 mg/dL Total Bilirubin 1.1 mg/dL Aspartate Amino Transf (AST/SGOT) 81 U/L Alanine Aminotransferase (ALT/SGPT) 62 U/L Alkaline Phosphatase 71 U/L Total Protein 6.9 g/dL Albumin 3.3 g/dL Albumin/Globulin Ratio 0.9 Current Medications Medications (Trade) Dose Ordered Sig/Sonia Route PRN Reason Start Time Stop Time Status Last Admin Dose Admin Acetaminophen (Tylenol) 650 mg PRN Q6HRS PRN PO MILD PAIN / TEMP > 100.3'F 08/01/20 15:45 08/06/20 20:53 Multi-Ingredient Ointment (Analgesic [place]) 1 olu PRN QID PRN TP MUSCLE PAIN 08/01/20 15:45 Al Hydroxide/Mg Hydroxide (Mylanta Plus Xs) 15 ml PRN AFTMEALHC PRN PO DYSPEPSIA 08/01/20 15:45 Magnesium Hydroxide (Milk Of Magnesia) 2,400 mg PRN QHS PRN PO CONSTIPATION 08/01/20 15:45 08/06/20 06:06 Fenofibrate (Tricor) 48 mg DAILY PO 08/02/20 09:00 08/06/20 08:40 Fluticasone Propionate (Flonase) 2 spray DAILY NS 08/02/20 09:00 08/06/20 08:40 Metoprolol Succinate (Toprol Xl) 50 mg DAILY PO 08/02/20 09:00 08/06/20 08:40 Mirtazapine (Remeron) 15 mg QHS PO 08/01/20 21:00 08/03/20 18:01 DC 08/02/20 20:59 Olanzapine (ZyPREXA ZYDIS) 5 mg DAILY PO 08/02/20 09:00 08/03/20 18:01 DC 08/03/20 09:47 Pantoprazole Sodium (Protonix) 40 mg DAILY PO 08/02/20 09:00 08/06/20 08:40 Non-Formulary Medication (Lutein ) 20 mg DAILY PO 08/02/20 09:00 UNV Multivitamins/ Calcium (Thera-M Plus) 1 tab DAILY PO 08/02/20 09:00 08/06/20 08:40 Olanzapine (ZyPREXA ZYDIS) 2.5 mg PRN Q2HR PRN PO PSYCHOSIS 08/01/20 23:30 08/06/20 13:43 DC 08/06/20 09:53 Trazodone HCl (Desyrel) 50 mg PRN QHS PRN PO INSOMNIA, MAY REPEAT X2 08/01/20 23:30 08/07/20 01:06 Melatonin (Melatonin) 3 mg QHS PO 08/02/20 21:00 08/06/20 20:53 Tamsulosin HCl (Flomax) 0.4 mg DAILY PO 08/03/20 09:00 08/03/20 12:33 DC 08/03/20 09:47 Tamsulosin HCl (Flomax) 0.4 mg 1X ONCE PO 08/02/20 21:00 08/02/20 21:01 DC 08/02/20 21:01 Tamsulosin HCl (Flomax) 0.4 mg BID PO 08/03/20 14:00 08/06/20 20:53 Risperidone (RisperDAL) 0.25 mg QHS PO 08/03/20 21:00 08/06/20 20:53 Trazodone HCl (Desyrel) 100 mg QHS PO 08/05/20 21:00 08/06/20 20:53 Levofloxacin (Levaquin) 250 mg DAILY PO 08/06/20 11:30 08/10/20 23:59 08/06/20 12:08 Olanzapine (ZyPREXA ZYDIS) 5 mg PRN Q2HR PRN PO PSYCHOSIS 08/06/20 13:45 08/07/20 01:06 Lorazepam (Ativan) 1 mg 1X ONCE PO 08/06/20 18:15 08/06/20 18:22 DC Lorazepam (Ativan) 1 mg 1X PRN PO ANXIETY / AGITATION 08/06/20 18:30 08/07/20 00:00 DC 08/06/20 18:52 Current Medications Medications (Trade) Dose Ordered Sig/Sonia Route PRN Reason Start Time Stop Time Status Last Admin Dose Admin Levofloxacin (Levaquin) 250 mg DAILY PO 08/06/20 11:30 08/10/20 23:59 08/06/20 12:08 Olanzapine (ZyPREXA ZYDIS) 5 mg PRN Q2HR PRN PO PSYCHOSIS 08/06/20 13:45 08/07/20 01:06 Lorazepam (Ativan) 1 mg 1X PRN PO ANXIETY / AGITATION 08/06/20 18:30 08/07/20 00:00 DC 08/06/20 18:52 I have reviewed the current psychotropics carefully including drug interactions. Risk benefit ratio favors no change other than as noted in my dictated progress note. Diagnosis: Problems: (1) Psychotic disorder (2) Impulse control disorder, unspecified (3) Vascular dementia with delusions (4) Anxiety disorder, unspecified (5) Vascular dementia with depression (6) Major neurocognitive disorder PRABHAKAR MOLINA MD Aug 07, 2020 08:07
[2020-08-07] MEDS: FLUTICASONE 50MCG/NASAL SPRAY 16GM BOTTLE. NS SCH (09:00)
[2020-08-07] MEDS: PANTOPRAZOLE 40 MG TABLET. PO SCH (09:24)
[2020-08-07] MEDS: MULTIVITAMIN with MINERAL TABLET. PO SCH (09:24)
[2020-08-07] MEDS: levoFLOXacin 250 MG TABLET PO SCH (09:24)
[2020-08-07] MEDS: TAMSULOSIN 0.4 MG CAP.ER.24H. PO SCH ×2 (09:24→20:16)
[2020-08-07] MEDS: METOPROLOL SUCC 24HR ER 50 MG TAB.ER.24H. PO SCH (09:24)
[2020-08-07] MEDS: FENOFIBRATE NANOCRYSTALLIZED 48 MG TABLET PO SCH (09:25)
--- NOTE | 2020-08-07 12:17 | NUR ---
Pt is confused, calm, and cooperative. No agitation, no aggression, no hallucinations. Pt needs frequent reminders for safety and redirection. He is compliant with his medication and assessment.
[2020-08-07 16:03] VITALS: BP 130/88
[2020-08-07] MEDS: MELATONIN 3 MG TABLET PO SCH (20:16)
[2020-08-07] MEDS: LACTOBACILLUS RHAMNOSUS GG 1 CAPSULE. PO SCH (20:16)
[2020-08-07] MEDS: traZODone 100 MG TABLET. PO SCH (20:16)
[2020-08-07] MEDS: risperiDONE 0.25 MG TABLET. PO SCH (20:16)
--- NOTE | 2020-08-07 21:14 | PDOC ---
Exam Note: Manish Note: Please also refer to the separate dictated note~for this date of service dictated separately.~Patient seen individually. Discussed the patient with Nursing staff reviewed the chart.~Reviewed interim history and current functioning. Reviewed vital signs,~Labs/ Radiology~and current medications noted below. Continue current treatment with the changes noted in the dictated addendum note Assessment: Vital Signs/I&O: Vital Signs Date Time Temp Pulse Resp B/P (MAP) Pulse Ox O2 Delivery O2 Flow Rate FiO2 08/07/20 16:03 98.3 97 18 130/88 (102) 92 08/06/20 06:27 Room Air I & O 08/06/20 08/06/20 08/07/20 15:00 23:00 07:00 Intake Total 480 ml 200 ml 100 ml Balance 480 ml 200 ml 100 ml Labs: Laboratory Tests Test 08/07/20 06:38 White Blood Count 9.3 x10^3/uL (4.0-11.0) Red Blood Count 4.97 x10^6/uL (4.30-5.70) Hemoglobin 15.3 g/dL (13.0-17.5) Hematocrit 44.2 % (39.0-53.0) Mean Corpuscular Volume 89 fL (79-100) Mean Corpuscular Hemoglobin 31 pg (25-35) Mean Corpuscular Hemoglobin Concent 35 g/dL (31-37) Red Cell Distribution Width 13.5 % (11.5-14.5) Platelet Count 197 x10^3/uL (140-400) Neutrophils (%) (Auto) 72 % (31-73) Lymphocytes (%) (Auto) 14 % (24-48) L Monocytes (%) (Auto) 11 % (0-9) H Eosinophils (%) (Auto) 2 % (0-3) Basophils (%) (Auto) 1 % (0-3) Neutrophils # (Auto) 6.7 x10^3uL (1.8-7.7) Lymphocytes # (Auto) 1.3 x10^3/uL (1.0-4.8) Monocytes # (Auto) 1.1 x10^3/uL (0.0-1.1) Eosinophils # (Auto) 0.2 x10^3/uL (0.0-0.7) Basophils # (Auto) 0.1 x10^3/uL (0.0-0.2) Sodium Level 142 mmol/L (136-145) Potassium Level 3.7 mmol/L (3.5-5.1) Chloride Level 106 mmol/L (98-107) Carbon Dioxide Level 25 mmol/L (21-32) Anion Gap 11 (6-14) Blood Urea Nitrogen 30 mg/dL (8-26) H Creatinine 1.0 mg/dL (0.7-1.3) Estimated GFR (Cockcroft-Gault) 72.6 BUN/Creatinine Ratio 30 (6-20) H Glucose Level 111 mg/dL (70-99) H Calcium Level 8.7 mg/dL (8.5-10.1) Total Bilirubin 1.1 mg/dL (0.2-1.0) H Aspartate Amino Transferase (AST) 81 U/L (15-37) H Alanine Aminotransferase (ALT) 62 U/L (16-63) Alkaline Phosphatase 71 U/L (46-116) Total Protein 6.9 g/dL (6.4-8.2) Albumin 3.3 g/dL (3.4-5.0) L Albumin/Globulin Ratio 0.9 (1.0-1.7) L Current Medications: Meds: Laboratory Tests Test 08/07/20 06:38 White Blood Count 9.3 x10^3/uL Red Blood Count 4.97 x10^6/uL Hemoglobin 15.3 g/dL Hematocrit 44.2 % Mean Corpuscular Volume 89 fL Mean Corpuscular Hemoglobin 31 pg Mean Corpuscular Hemoglobin Concent 35 g/dL Red Cell Distribution Width 13.5 % Platelet Count 197 x10^3/uL Neutrophils (%) (Auto) 72 % Lymphocytes (%) (Auto) 14 % Monocytes (%) (Auto) 11 % Eosinophils (%) (Auto) 2 % Basophils (%) (Auto) 1 % Neutrophils # (Auto) 6.7 x10^3uL Lymphocytes # (Auto) 1.3 x10^3/uL Monocytes # (Auto) 1.1 x10^3/uL Eosinophils # (Auto) 0.2 x10^3/uL Basophils # (Auto) 0.1 x10^3/uL Sodium Level 142 mmol/L Potassium Level 3.7 mmol/L Chloride Level 106 mmol/L Carbon Dioxide Level 25 mmol/L Anion Gap 11 Blood Urea Nitrogen 30 mg/dL Creatinine 1.0 mg/dL Estimated GFR (Cockcroft-Gault) 72.6 BUN/Creatinine Ratio 30 Glucose Level 111 mg/dL Calcium Level 8.7 mg/dL Total Bilirubin 1.1 mg/dL Aspartate Amino Transf (AST/SGOT) 81 U/L Alanine Aminotransferase (ALT/SGPT) 62 U/L Alkaline Phosphatase 71 U/L Total Protein 6.9 g/dL Albumin 3.3 g/dL Albumin/Globulin Ratio 0.9 Current Medications Medications (Trade) Dose Ordered Sig/Sonia Route PRN Reason Start Time Stop Time Status Last Admin Dose Admin Acetaminophen (Tylenol) 650 mg PRN Q6HRS PRN PO MILD PAIN / TEMP > 100.3'F 08/01/20 15:45 08/06/20 20:53 Multi-Ingredient Ointment (Analgesic [place]) 1 olu PRN QID PRN TP MUSCLE PAIN 08/01/20 15:45 Al Hydroxide/Mg Hydroxide (Mylanta Plus Xs) 15 ml PRN AFTMEALHC PRN PO DYSPEPSIA 08/01/20 15:45 Magnesium Hydroxide (Milk Of Magnesia) 2,400 mg PRN QHS PRN PO CONSTIPATION 08/01/20 15:45 08/06/20 06:06 Fenofibrate (Tricor) 48 mg DAILY PO 08/02/20 09:00 08/07/20 09:25 Fluticasone Propionate (Flonase) 2 spray DAILY NS 08/02/20 09:00 08/06/20 08:40 Metoprolol Succinate (Toprol Xl) 50 mg DAILY PO 08/02/20 09:00 08/07/20 09:24 Mirtazapine (Remeron) 15 mg QHS PO 08/01/20 21:00 08/03/20 18:01 DC 08/02/20 20:59 Olanzapine (ZyPREXA ZYDIS) 5 mg DAILY PO 08/02/20 09:00 08/03/20 18:01 DC 08/03/20 09:47 Pantoprazole Sodium (Protonix) 40 mg DAILY PO 08/02/20 09:00 08/07/20 09:24 Non-Formulary Medication (Lutein ) 20 mg DAILY PO 08/02/20 09:00 UNV Multivitamins/ Calcium (Thera-M Plus) 1 tab DAILY PO 08/02/20 09:00 08/07/20 09:24 Olanzapine (ZyPREXA ZYDIS) 2.5 mg PRN Q2HR PRN PO PSYCHOSIS 08/01/20 23:30 08/06/20 13:43 DC 08/06/20 09:53 Trazodone HCl (Desyrel) 50 mg PRN QHS PRN PO INSOMNIA, MAY REPEAT X2 08/01/20 23:30 08/07/20 01:06 Melatonin (Melatonin) 3 mg QHS PO 08/02/20 21:00 08/07/20 20:16 Tamsulosin HCl (Flomax) 0.4 mg DAILY PO 08/03/20 09:00 08/03/20 12:33 DC 08/03/20 09:47 Tamsulosin HCl (Flomax) 0.4 mg 1X ONCE PO 08/02/20 21:00 08/02/20 21:01 DC 08/02/20 21:01 Tamsulosin HCl (Flomax) 0.4 mg BID PO 08/03/20 14:00 08/07/20 20:16 Risperidone (RisperDAL) 0.25 mg QHS PO 08/03/20 21:00 08/07/20 20:16 Trazodone HCl (Desyrel) 100 mg QHS PO 08/05/20 21:00 08/07/20 20:16 Levofloxacin (Levaquin) 250 mg DAILY PO 08/06/20 11:30 08/10/20 23:59 08/07/20 09:24 Olanzapine (ZyPREXA ZYDIS) 5 mg PRN Q2HR PRN PO PSYCHOSIS 08/06/20 13:45 08/07/20 01:06 Lorazepam (Ativan) 1 mg 1X ONCE PO 08/06/20 18:15 08/06/20 18:22 DC Lorazepam (Ativan) 1 mg 1X PRN PO ANXIETY / AGITATION 08/06/20 18:30 08/07/20 00:00 DC 08/06/20 18:52 Lactobacillus Rhamnosus (Culturelle) 1 cap BID PO 08/07/20 21:00 08/07/20 20:16 Current Medications Medications (Trade) Dose Ordered Sig/Sonia Route PRN Reason Start Time Stop Time Status Last Admin Dose Admin Lactobacillus Rhamnosus (Culturelle) 1 cap BID PO 08/07/20 21:00 08/07/20 20:16 I have reviewed the current psychotropics carefully including drug interactions. Risk benefit ratio favors no change other than as noted in my dictated progress note. Diagnosis: Problems: (1) Psychotic disorder (2) Impulse control disorder, unspecified (3) Vascular dementia with delusions (4) Anxiety disorder, unspecified (5) Vascular dementia with depression (6) Major neurocognitive disorder PRABHAKAR MOLINA MD Aug 07, 2020 21:14
--- NOTE | 2020-08-08 01:50 | NUR ---
Last evening pt was in his bed talking to unseen persons. When staff was there he was pleasant and social thinking it was a [employer] worker. He took meds whole without issue and has been cooperative. He has had no aggression or sarcasm tonight and has been sleeping.
[2020-08-08 05:46] VITALS: BP 154/90
--- NOTE | 2020-08-08 08:31 | PDOC ---
Exam Note: Manish Note: This note is a late entry for 08/07/2020 covers elements not covered in my initial note. Subjective: The patient was reviewed on telehealth rounds in the evening of 08/07/2020 with Arlen ULLOA. Discussed with nursing staff, reviewed the chart. He slept 2-3/4 hours previous night. He has been restless, anxious, agitated previous night. Received trazodone and Zyprexa at night. He pulled out his F[place] which has been used by Dr. Art for his urinary retention. He has been delusional, disorganized, wandering. Started on Levaquin for UTI. Review of Systems: No CV, , pulmonary, eye, ENT system symptoms on review. Mental Status Exam: The patient is oriented to himself and situation. He is pleasant, interactive, somewhat dismissive as I met with him. Abstraction is fair. Computation is impaired. Language function is intact. Attention span is short. Mood and affect anxious. No active psychotic symptoms, suicidal or homicidal ideation. Laboratory Data: Reviewed. Impression: Major neurocognitive disorder Alzheimer vascular with delusion, depression, behavioral disturbance. Anxiety disorder unspecified. Impulse control disorder. Plan: Continue current psychotropics mentioned in my initial note. Treat the UTI. Make further adjustments as clinically indicated. Reviewed risk-benefit ratio. Assessment: Vital Signs/I&O: Vital Signs Date Time Temp Pulse Resp B/P (MAP) Pulse Ox O2 Delivery O2 Flow Rate FiO2 08/08/20 05:46 98.1 104 18 154/90 (111) 93 08/06/20 06:27 Room Air I & O 08/07/20 08/07/20 08/08/20 15:00 23:00 07:00 Intake Total 440 ml 360 ml Output Total 350 ml 360 ml 350 ml Balance 90 ml 0 ml -350 ml Current Medications: Meds: Current Medications Medications (Trade) Dose Ordered Sig/Sonia Route PRN Reason Start Time Stop Time Status Last Admin Dose Admin Acetaminophen (Tylenol) 650 mg PRN Q6HRS PRN PO MILD PAIN / TEMP > 100.3'F 08/01/20 15:45 08/06/20 20:53 Multi-Ingredient Ointment (Analgesic [place]) 1 olu PRN QID PRN TP MUSCLE PAIN 08/01/20 15:45 Al Hydroxide/Mg Hydroxide (Mylanta Plus Xs) 15 ml PRN AFTMEALHC PRN PO DYSPEPSIA 08/01/20 15:45 Magnesium Hydroxide (Milk Of Magnesia) 2,400 mg PRN QHS PRN PO CONSTIPATION 08/01/20 15:45 08/06/20 06:06 Fenofibrate (Tricor) 48 mg DAILY PO 08/02/20 09:00 08/07/20 09:25 Fluticasone Propionate (Flonase) 2 spray DAILY NS 08/02/20 09:00 08/06/20 08:40 Metoprolol Succinate (Toprol Xl) 50 mg DAILY PO 08/02/20 09:00 08/07/20 09:24 Mirtazapine (Remeron) 15 mg QHS PO 08/01/20 21:00 08/03/20 18:01 DC 08/02/20 20:59 Olanzapine (ZyPREXA ZYDIS) 5 mg DAILY PO 08/02/20 09:00 08/03/20 18:01 DC 08/03/20 09:47 Pantoprazole Sodium (Protonix) 40 mg DAILY PO 08/02/20 09:00 08/07/20 09:24 Non-Formulary Medication (Lutein ) 20 mg DAILY PO 08/02/20 09:00 UNV Multivitamins/ Calcium (Thera-M Plus) 1 tab DAILY PO 08/02/20 09:00 08/07/20 09:24 Olanzapine (ZyPREXA ZYDIS) 2.5 mg PRN Q2HR PRN PO PSYCHOSIS 08/01/20 23:30 08/06/20 13:43 DC 08/06/20 09:53 Trazodone HCl (Desyrel) 50 mg PRN QHS PRN PO INSOMNIA, MAY REPEAT X2 08/01/20 23:30 08/07/20 01:06 Melatonin (Melatonin) 3 mg QHS PO 08/02/20 21:00 08/07/20 20:16 Tamsulosin HCl (Flomax) 0.4 mg DAILY PO 08/03/20 09:00 08/03/20 12:33 DC 08/03/20 09:47 Tamsulosin HCl (Flomax) 0.4 mg 1X ONCE PO 08/02/20 21:00 08/02/20 21:01 DC 08/02/20 21:01 Tamsulosin HCl (Flomax) 0.4 mg BID PO 08/03/20 14:00 08/07/20 20:16 Risperidone (RisperDAL) 0.25 mg QHS PO 08/03/20 21:00 08/07/20 20:16 Trazodone HCl (Desyrel) 100 mg QHS PO 08/05/20 21:00 08/07/20 20:16 Levofloxacin (Levaquin) 250 mg DAILY PO 08/06/20 11:30 08/10/20 23:59 08/07/20 09:24 Olanzapine (ZyPREXA ZYDIS) 5 mg PRN Q2HR PRN PO PSYCHOSIS 08/06/20 13:45 08/07/20 01:06 Lorazepam (Ativan) 1 mg 1X ONCE PO 08/06/20 18:15 08/06/20 18:22 DC Lorazepam (Ativan) 1 mg 1X PRN PO ANXIETY / AGITATION 08/06/20 18:30 08/07/20 00:00 DC 08/06/20 18:52 Lactobacillus Rhamnosus (Culturelle) 1 cap BID PO 08/07/20 21:00 08/07/20 20:16 Current Medications Medications (Trade) Dose Ordered Sig/Sonia Route PRN Reason Start Time Stop Time Status Last Admin Dose Admin Lactobacillus Rhamnosus (Culturelle) 1 cap BID PO 08/07/20 21:00 08/07/20 20:16 I have reviewed the current psychotropics carefully including drug interactions. Risk benefit ratio favors no change other than as noted in my dictated progress note. Diagnosis: Problems: (1) Impulse control disorder, unspecified (2) Vascular dementia with delusions (3) Anxiety disorder, unspecified (4) Vascular dementia with depression (5) Major neurocognitive disorder PRABHAKAR MOLINA MD Aug 08, 2020 08:31
[2020-08-08] MEDS: FLUTICASONE 50MCG/NASAL SPRAY 16GM BOTTLE. NS SCH (09:00)
[2020-08-08] MEDS: FENOFIBRATE NANOCRYSTALLIZED 48 MG TABLET PO SCH (09:00)
[2020-08-08] MEDS: levoFLOXacin 250 MG TABLET PO SCH (09:18)
[2020-08-08] MEDS: LACTOBACILLUS RHAMNOSUS GG 1 CAPSULE. PO SCH ×2 (09:18→19:32)
[2020-08-08] MEDS: TAMSULOSIN 0.4 MG CAP.ER.24H. PO SCH ×2 (09:18→19:32)
[2020-08-08] MEDS: PANTOPRAZOLE 40 MG TABLET. PO SCH (09:18)
[2020-08-08] MEDS: METOPROLOL SUCC 24HR ER 50 MG TAB.ER.24H. PO SCH (09:19)
[2020-08-08] MEDS: MULTIVITAMIN with MINERAL TABLET. PO SCH (09:19)
--- NOTE | 2020-08-08 14:38 | NUR ---
Patient laying in bed sitting up at time of assessment. Patient is irritable and angry but cooperative. He is polite but easily irritated. Patient takes medications whole with no problems. Patient catheter is in place and not bothering patient. Patient is not bothering catheter and is much more comfortable since it has been placed. Patient has no further complaints or concerns at this time.
[2020-08-08 15:51] VITALS: BP 120/76
--- NOTE | 2020-08-08 17:40 | NUR ---
Patient has had a good day today. He has been polite and cooperative. He morris had a few moment of irritability but was easily redirected. No behavioral issues for most of the day.
[2020-08-08] MEDS: risperiDONE 0.25 MG TABLET. PO SCH (19:32)
[2020-08-08] MEDS: traZODone 100 MG TABLET. PO SCH (19:32)
[2020-08-08] MEDS: MELATONIN 3 MG TABLET PO SCH (19:32)
[2020-08-08] MEDS: ACETAMINOPHEN 325 MG TABLET PO PRN (19:40)
--- NOTE | 2020-08-08 21:18 | PDOC ---
Exam Note: Manish Note: Please also refer to the separate dictated note~for this date of service dictated separately.~Patient seen individually. Discussed the patient with Nursing staff reviewed the chart.~Reviewed interim history and current functioning. Reviewed vital signs,~Labs/ Radiology~and current medications noted below. Continue current treatment with the changes noted in the dictated addendum note Assessment: Vital Signs/I&O: Vital Signs Date Time Temp Pulse Resp B/P (MAP) Pulse Ox O2 Delivery O2 Flow Rate FiO2 08/08/20 15:51 97.0 101 18 120/76 (91) 95 Room Air I & O 08/07/20 08/07/20 08/08/20 15:00 23:00 07:00 Intake Total 440 ml 360 ml Output Total 350 ml 360 ml 350 ml Balance 90 ml 0 ml -350 ml Current Medications: Meds: Current Medications Medications (Trade) Dose Ordered Sig/Sonia Route PRN Reason Start Time Stop Time Status Last Admin Dose Admin Acetaminophen (Tylenol) 650 mg PRN Q6HRS PRN PO MILD PAIN / TEMP > 100.3'F 08/01/20 15:45 08/08/20 19:40 Multi-Ingredient Ointment (Analgesic [place]) 1 olu PRN QID PRN TP MUSCLE PAIN 08/01/20 15:45 Al Hydroxide/Mg Hydroxide (Mylanta Plus Xs) 15 ml PRN AFTMEALHC PRN PO DYSPEPSIA 08/01/20 15:45 Magnesium Hydroxide (Milk Of Magnesia) 2,400 mg PRN QHS PRN PO CONSTIPATION 08/01/20 15:45 08/06/20 06:06 Fenofibrate (Tricor) 48 mg DAILY PO 08/02/20 09:00 08/08/20 09:00 Fluticasone Propionate (Flonase) 2 spray DAILY NS 08/02/20 09:00 08/08/20 09:00 Metoprolol Succinate (Toprol Xl) 50 mg DAILY PO 08/02/20 09:00 08/08/20 09:19 Mirtazapine (Remeron) 15 mg QHS PO 08/01/20 21:00 08/03/20 18:01 DC 08/02/20 20:59 Olanzapine (ZyPREXA ZYDIS) 5 mg DAILY PO 08/02/20 09:00 08/03/20 18:01 DC 08/03/20 09:47 Pantoprazole Sodium (Protonix) 40 mg DAILY PO 08/02/20 09:00 08/08/20 09:18 Non-Formulary Medication (Lutein ) 20 mg DAILY PO 08/02/20 09:00 UNV Multivitamins/ Calcium (Thera-M Plus) 1 tab DAILY PO 08/02/20 09:00 08/08/20 09:19 Olanzapine (ZyPREXA ZYDIS) 2.5 mg PRN Q2HR PRN PO PSYCHOSIS 08/01/20 23:30 08/06/20 13:43 DC 08/06/20 09:53 Trazodone HCl (Desyrel) 50 mg PRN QHS PRN PO INSOMNIA, MAY REPEAT X2 08/01/20 23:30 08/07/20 01:06 Melatonin (Melatonin) 3 mg QHS PO 08/02/20 21:00 08/08/20 19:32 Tamsulosin HCl (Flomax) 0.4 mg DAILY PO 08/03/20 09:00 08/03/20 12:33 DC 08/03/20 09:47 Tamsulosin HCl (Flomax) 0.4 mg 1X ONCE PO 08/02/20 21:00 08/02/20 21:01 DC 08/02/20 21:01 Tamsulosin HCl (Flomax) 0.4 mg BID PO 08/03/20 14:00 08/08/20 19:32 Risperidone (RisperDAL) 0.25 mg QHS PO 08/03/20 21:00 08/08/20 19:32 Trazodone HCl (Desyrel) 100 mg QHS PO 08/05/20 21:00 08/08/20 19:32 Levofloxacin (Levaquin) 250 mg DAILY PO 08/06/20 11:30 08/10/20 23:59 08/08/20 09:18 Olanzapine (ZyPREXA ZYDIS) 5 mg PRN Q2HR PRN PO PSYCHOSIS 08/06/20 13:45 08/07/20 01:06 Lorazepam (Ativan) 1 mg 1X ONCE PO 08/06/20 18:15 08/06/20 18:22 DC Lorazepam (Ativan) 1 mg 1X PRN PO ANXIETY / AGITATION 08/06/20 18:30 08/07/20 00:00 DC 08/06/20 18:52 Lactobacillus Rhamnosus (Culturelle) 1 cap BID PO 08/07/20 21:00 08/08/20 19:32 I have reviewed the current psychotropics carefully including drug interactions. Risk benefit ratio favors no change other than as noted in my dictated progress note. Diagnosis: Problems: (1) Psychotic disorder (2) Impulse control disorder, unspecified (3) Vascular dementia with delusions (4) Anxiety disorder, unspecified (5) Vascular dementia with depression (6) Major neurocognitive disorder PRABHAKAR MOLINA MD Aug 08, 2020 21:18
--- NOTE | 2020-08-09 02:33 | NUR ---
Maxine morocho has been pleasant and cooperative with cares and meds. He has been confused and delusional but has had no behaviors. Since going to bed he has been sleeping.
[2020-08-09 05:39] VITALS: BP 146/97
--- NOTE | 2020-08-09 08:15 | PDOC ---
Exam Note: Manish Note: This note is a late entry for 08/08/2020 covers elements not covered in my initial note. Subjective: The patient was reviewed on telehealth rounds in the evening of 08/08/2020 with Roselyn ULLOA. Discussed with nursing staff, reviewed the chart. He slept 6-3/4 hours previous night. Overall the patient has done better during the day today. He is more oriented. He remembers he met with me on telehealth rounds previous evening. He did have a bowel movement. Urine is dark but he has not been pulling out his bag. Review of Systems: No CV, , pulmonary, eye, ENT system symptoms on review. Mental Status Exam: The patient is oriented to himself and situation. Speech has some latency. Often response is monosyllabic. Abstraction is fair. Computation is impaired. Language function is intact. Attention span is short. Mood and affect withdraw at times but improved. No suicidal ideation. Laboratory Data: Reviewed. Impression: Major neurocognitive disorder Alzheimer vascular with delusion, depression, behavioral disturbance. Anxiety disorder unspecified. Impulse control disorder. Plan: No change from initial note. Assessment: Vital Signs/I&O: Vital Signs Date Time Temp Pulse Resp B/P (MAP) Pulse Ox O2 Delivery O2 Flow Rate FiO2 08/09/20 05:39 97.7 92 18 146/97 (113) 95 08/08/20 15:51 Room Air I & O 08/08/20 08/08/20 08/09/20 15:00 23:00 07:00 Intake Total 240 ml 260 ml Output Total 350 ml 350 ml Balance 240 ml -90 ml -350 ml Current Medications: Meds: Current Medications Medications (Trade) Dose Ordered Sig/Sonia Route PRN Reason Start Time Stop Time Status Last Admin Dose Admin Acetaminophen (Tylenol) 650 mg PRN Q6HRS PRN PO MILD PAIN / TEMP > 100.3'F 08/01/20 15:45 08/08/20 19:40 Multi-Ingredient Ointment (Analgesic [place]) 1 olu PRN QID PRN TP MUSCLE PAIN 08/01/20 15:45 Al Hydroxide/Mg Hydroxide (Mylanta Plus Xs) 15 ml PRN AFTMEALHC PRN PO DYSPEPSIA 08/01/20 15:45 Magnesium Hydroxide (Milk Of Magnesia) 2,400 mg PRN QHS PRN PO CONSTIPATION 08/01/20 15:45 08/06/20 06:06 Fenofibrate (Tricor) 48 mg DAILY PO 08/02/20 09:00 08/08/20 09:00 Fluticasone Propionate (Flonase) 2 spray DAILY NS 08/02/20 09:00 08/08/20 09:00 Metoprolol Succinate (Toprol Xl) 50 mg DAILY PO 08/02/20 09:00 08/08/20 09:19 Mirtazapine (Remeron) 15 mg QHS PO 08/01/20 21:00 08/03/20 18:01 DC 08/02/20 20:59 Olanzapine (ZyPREXA ZYDIS) 5 mg DAILY PO 08/02/20 09:00 08/03/20 18:01 DC 08/03/20 09:47 Pantoprazole Sodium (Protonix) 40 mg DAILY PO 08/02/20 09:00 08/08/20 09:18 Non-Formulary Medication (Lutein ) 20 mg DAILY PO 08/02/20 09:00 UNV Multivitamins/ Calcium (Thera-M Plus) 1 tab DAILY PO 08/02/20 09:00 08/08/20 09:19 Olanzapine (ZyPREXA ZYDIS) 2.5 mg PRN Q2HR PRN PO PSYCHOSIS 08/01/20 23:30 08/06/20 13:43 DC 08/06/20 09:53 Trazodone HCl (Desyrel) 50 mg PRN QHS PRN PO INSOMNIA, MAY REPEAT X2 08/01/20 23:30 08/07/20 01:06 Melatonin (Melatonin) 3 mg QHS PO 08/02/20 21:00 08/08/20 19:32 Tamsulosin HCl (Flomax) 0.4 mg DAILY PO 08/03/20 09:00 08/03/20 12:33 DC 08/03/20 09:47 Tamsulosin HCl (Flomax) 0.4 mg 1X ONCE PO 08/02/20 21:00 08/02/20 21:01 DC 08/02/20 21:01 Tamsulosin HCl (Flomax) 0.4 mg BID PO 08/03/20 14:00 08/08/20 19:32 Risperidone (RisperDAL) 0.25 mg QHS PO 08/03/20 21:00 08/08/20 19:32 Trazodone HCl (Desyrel) 100 mg QHS PO 08/05/20 21:00 08/08/20 19:32 Levofloxacin (Levaquin) 250 mg DAILY PO 08/06/20 11:30 08/10/20 23:59 08/08/20 09:18 Olanzapine (ZyPREXA ZYDIS) 5 mg PRN Q2HR PRN PO PSYCHOSIS 08/06/20 13:45 08/07/20 01:06 Lorazepam (Ativan) 1 mg 1X ONCE PO 08/06/20 18:15 08/06/20 18:22 DC Lorazepam (Ativan) 1 mg 1X PRN PO ANXIETY / AGITATION 08/06/20 18:30 08/07/20 00:00 DC 08/06/20 18:52 Lactobacillus Rhamnosus (Culturelle) 1 cap BID PO 08/07/20 21:00 08/08/20 19:32 I have reviewed the current psychotropics carefully including drug interactions. Risk benefit ratio favors no change other than as noted in my dictated progress note. Diagnosis: Problems: (1) Psychotic disorder (2) Impulse control disorder, unspecified (3) Vascular dementia with delusions (4) Anxiety disorder, unspecified (5) Vascular dementia with depression (6) Major neurocognitive disorder PRABHAKAR MOLINA MD Aug 09, 2020 08:15
[2020-08-09] MEDS: MULTIVITAMIN with MINERAL TABLET. PO SCH (09:11)
[2020-08-09] MEDS: PANTOPRAZOLE 40 MG TABLET. PO SCH (09:11)
[2020-08-09] MEDS: levoFLOXacin 250 MG TABLET PO SCH (09:11)
[2020-08-09] MEDS: LACTOBACILLUS RHAMNOSUS GG 1 CAPSULE. PO SCH ×2 (09:12→20:49)
[2020-08-09] MEDS: TAMSULOSIN 0.4 MG CAP.ER.24H. PO SCH ×2 (09:12→20:49)
[2020-08-09] MEDS: METOPROLOL SUCC 24HR ER 50 MG TAB.ER.24H. PO SCH (09:12)
[2020-08-09] MEDS: FLUTICASONE 50MCG/NASAL SPRAY 16GM BOTTLE. NS SCH (09:13)
[2020-08-09] MEDS: FENOFIBRATE NANOCRYSTALLIZED 48 MG TABLET PO SCH (09:13)
--- NOTE | 2020-08-09 11:28 | NUR ---
Nursing note: Pt was resting in bed at time of AM med pass. He was eager to get up and take his meds so that he could eat his breakfast. Pt was pleasant, med compliant and cooperative. He denied having any complaints at time of assessment. He is currently sitting quietly in his room. Will continue to monitor.
--- NOTE | 2020-08-09 13:03 | NUR ---
HU contacted pt /Halina SHAH to discuss how pt is doing. Pt had many concerns about pt hygeine and making sure that he is getting adequate oral hygeine for his dentures. HU had the lead CUSTOMER SALES CONSULTANT assist in answer pt questions regarding ADL's and she was also able to discuss their process with pt dentures, in which pt was happy with her answers. Pt also wanted to make sure he was getting lotion on from time to time as she reports that pt tends to shed a lot from his dry skin stating "it's gross, trust me, you don't want to have it all over the place there". SW will pass this on to the CUSTOMER SALES CONSULTANT's. SW and pt also discussed more things that pt liked to do and the movies he loves watching. Pt just wants to make sure he is happy. SW questioned on having a referral, when ready, to send to [facility] and pt reports that pt is not going to placement. They do not meet requirements for Medicaid and paying out of pocket for his care is more costly than they make per month. Pt will have pt come home once stable enough and hopes that he is able to just be min A to [facility] with cares. She reports that her son lives down the street and their children have been good at helping her when needed. HU also wanted to clarify pt code status as the chart says full code, but one sheet and the status in the computer says DNR. Pt reports that initially, pt came in as a full code. After talking to her children, they all agreed that pt should be a DNR. HU will make sure to pass this on and insure that everything on his chart and in the system as a DNR, in which pt then stated NOT. HU clarified do NOT resuscitate, which she stated correct.
[2020-08-09 15:45] VITALS: BP 126/81
[2020-08-09] MEDS: MELATONIN 3 MG TABLET PO SCH (20:49)
[2020-08-09] MEDS: traZODone 100 MG TABLET. PO SCH (20:49)
[2020-08-09] MEDS: risperiDONE 0.25 MG TABLET. PO SCH (20:49)
--- NOTE | 2020-08-09 21:31 | PDOC ---
Exam Note: Manish Note: Please also refer to the separate dictated note~for this date of service dictated separately.~Patient seen individually. Discussed the patient with Nursing staff reviewed the chart.~Reviewed interim history and current functioning. Reviewed vital signs,~Labs/ Radiology~and current medications noted below. Continue current treatment with the changes noted in the dictated addendum note Assessment: Vital Signs/I&O: Vital Signs Date Time Temp Pulse Resp B/P (MAP) Pulse Ox O2 Delivery O2 Flow Rate FiO2 08/09/20 15:45 98.1 97 18 126/81 (96) 99 08/08/20 15:51 Room Air I & O 08/08/20 08/08/20 08/09/20 15:00 23:00 07:00 Intake Total 240 ml 260 ml Output Total 350 ml 350 ml Balance 240 ml -90 ml -350 ml Current Medications: Meds: Current Medications Medications (Trade) Dose Ordered Sig/Sonia Route PRN Reason Start Time Stop Time Status Last Admin Dose Admin Acetaminophen (Tylenol) 650 mg PRN Q6HRS PRN PO MILD PAIN / TEMP > 100.3'F 08/01/20 15:45 08/08/20 19:40 Multi-Ingredient Ointment (Analgesic [place]) 1 olu PRN QID PRN TP MUSCLE PAIN 08/01/20 15:45 Al Hydroxide/Mg Hydroxide (Mylanta Plus Xs) 15 ml PRN AFTMEALHC PRN PO DYSPEPSIA 08/01/20 15:45 Magnesium Hydroxide (Milk Of Magnesia) 2,400 mg PRN QHS PRN PO CONSTIPATION 08/01/20 15:45 08/06/20 06:06 Fenofibrate (Tricor) 48 mg DAILY PO 08/02/20 09:00 08/09/20 09:13 Fluticasone Propionate (Flonase) 2 spray DAILY NS 08/02/20 09:00 08/09/20 09:13 Metoprolol Succinate (Toprol Xl) 50 mg DAILY PO 08/02/20 09:00 08/09/20 09:12 Mirtazapine (Remeron) 15 mg QHS PO 08/01/20 21:00 08/03/20 18:01 DC 08/02/20 20:59 Olanzapine (ZyPREXA ZYDIS) 5 mg DAILY PO 08/02/20 09:00 08/03/20 18:01 DC 08/03/20 09:47 Pantoprazole Sodium (Protonix) 40 mg DAILY PO 08/02/20 09:00 08/09/20 09:11 Non-Formulary Medication (Lutein ) 20 mg DAILY PO 08/02/20 09:00 UNV Multivitamins/ Calcium (Thera-M Plus) 1 tab DAILY PO 08/02/20 09:00 08/09/20 09:11 Olanzapine (ZyPREXA ZYDIS) 2.5 mg PRN Q2HR PRN PO PSYCHOSIS 08/01/20 23:30 08/06/20 13:43 DC 08/06/20 09:53 Trazodone HCl (Desyrel) 50 mg PRN QHS PRN PO INSOMNIA, MAY REPEAT X2 08/01/20 23:30 08/07/20 01:06 Melatonin (Melatonin) 3 mg QHS PO 08/02/20 21:00 08/09/20 20:49 Tamsulosin HCl (Flomax) 0.4 mg DAILY PO 08/03/20 09:00 08/03/20 12:33 DC 08/03/20 09:47 Tamsulosin HCl (Flomax) 0.4 mg 1X ONCE PO 08/02/20 21:00 08/02/20 21:01 DC 08/02/20 21:01 Tamsulosin HCl (Flomax) 0.4 mg BID PO 08/03/20 14:00 08/09/20 20:49 Risperidone (RisperDAL) 0.25 mg QHS PO 08/03/20 21:00 08/09/20 20:49 Trazodone HCl (Desyrel) 100 mg QHS PO 08/05/20 21:00 08/09/20 20:49 Levofloxacin (Levaquin) 250 mg DAILY PO 08/06/20 11:30 08/10/20 23:59 08/09/20 09:11 Olanzapine (ZyPREXA ZYDIS) 5 mg PRN Q2HR PRN PO PSYCHOSIS 08/06/20 13:45 08/07/20 01:06 Lorazepam (Ativan) 1 mg 1X ONCE PO 08/06/20 18:15 08/06/20 18:22 DC Lorazepam (Ativan) 1 mg 1X PRN PO ANXIETY / AGITATION 08/06/20 18:30 08/07/20 00:00 DC 08/06/20 18:52 Lactobacillus Rhamnosus (Culturelle) 1 cap BID PO 08/07/20 21:00 08/09/20 20:49 I have reviewed the current psychotropics carefully including drug interactions. Risk benefit ratio favors no change other than as noted in my dictated progress note. Diagnosis: Problems: (1) Psychotic disorder (2) Impulse control disorder, unspecified (3) Vascular dementia with delusions (4) Anxiety disorder, unspecified (5) Vascular dementia with depression (6) Major neurocognitive disorder PRABHAKAR MOLINA MD Aug 09, 2020 21:31
--- NOTE | 2020-08-09 22:33 | NUR ---
Patient was pleasant and cooperative with cares. Nurse complimented him on his slippers and he attempted to give them to nurse. Patient compliant with medications and pleasantly confused. No adverse behaviors noted at this time.
[2020-08-10 06:17] VITALS: BP 124/82
--- NOTE | 2020-08-10 08:25 | PDOC ---
Exam Note: Manish Note: This note is a late entry for 08/09/2020 covers elements not covered in my initial note. Subjective: The patient was reviewed on telehealth rounds in the evening of 08/09/2020 with Diane ULLOA. Discussed with nursing staff, reviewed the chart. He slept 8-1/2 hours previous night. Overall the patient has done much better, much more pleasant, less delusional about the showers. Review of Systems: No CV, , pulmonary, eye, ENT system symptoms on review. Mental Status Exam: The patient is oriented to himself and situation. Speech has some latency. Often response is monosyllabic. Overall the patient is doing better. He is pleasant, verbal, interactive. He remembered that he saw me the previous evening as well. Abstraction is fair. Computation is impaired. Language function is intact. Attention span is short. Mood and affect withdraw at times but improved. No suicidal or homicidal ideation. Laboratory Data: Reviewed. Impression: Major neurocognitive disorder Alzheimer vascular with delusion, depression, behavioral disturbance. Anxiety disorder unspecified. Impulse control disorder. Plan: No change from initial note. Assessment: Vital Signs/I&O: Vital Signs Date Time Temp Pulse Resp B/P (MAP) Pulse Ox O2 Delivery O2 Flow Rate FiO2 08/10/20 06:17 98.6 95 19 124/82 (96) 94 Room Air I & O 08/09/20 08/09/20 08/10/20 15:00 23:00 07:00 Intake Total 400 ml 300 ml Output Total 200 ml Balance 200 ml 300 ml Current Medications: Meds: Current Medications Medications (Trade) Dose Ordered Sig/Sonia Route PRN Reason Start Time Stop Time Status Last Admin Dose Admin Acetaminophen (Tylenol) 650 mg PRN Q6HRS PRN PO MILD PAIN / TEMP > 100.3'F 08/01/20 15:45 08/08/20 19:40 Multi-Ingredient Ointment (Analgesic [place]) 1 olu PRN QID PRN TP MUSCLE PAIN 08/01/20 15:45 Al Hydroxide/Mg Hydroxide (Mylanta Plus Xs) 15 ml PRN AFTMEALHC PRN PO DYSPEPSIA 08/01/20 15:45 Magnesium Hydroxide (Milk Of Magnesia) 2,400 mg PRN QHS PRN PO CONSTIPATION 08/01/20 15:45 08/06/20 06:06 Fenofibrate (Tricor) 48 mg DAILY PO 08/02/20 09:00 08/09/20 09:13 Fluticasone Propionate (Flonase) 2 spray DAILY NS 08/02/20 09:00 08/09/20 09:13 Metoprolol Succinate (Toprol Xl) 50 mg DAILY PO 08/02/20 09:00 08/09/20 09:12 Mirtazapine (Remeron) 15 mg QHS PO 08/01/20 21:00 08/03/20 18:01 DC 08/02/20 20:59 Olanzapine (ZyPREXA ZYDIS) 5 mg DAILY PO 08/02/20 09:00 08/03/20 18:01 DC 08/03/20 09:47 Pantoprazole Sodium (Protonix) 40 mg DAILY PO 08/02/20 09:00 08/09/20 09:11 Non-Formulary Medication (Lutein ) 20 mg DAILY PO 08/02/20 09:00 UNV Multivitamins/ Calcium (Thera-M Plus) 1 tab DAILY PO 08/02/20 09:00 08/09/20 09:11 Olanzapine (ZyPREXA ZYDIS) 2.5 mg PRN Q2HR PRN PO PSYCHOSIS 08/01/20 23:30 08/06/20 13:43 DC 08/06/20 09:53 Trazodone HCl (Desyrel) 50 mg PRN QHS PRN PO INSOMNIA, MAY REPEAT X2 08/01/20 23:30 08/07/20 01:06 Melatonin (Melatonin) 3 mg QHS PO 08/02/20 21:00 08/09/20 20:49 Tamsulosin HCl (Flomax) 0.4 mg DAILY PO 08/03/20 09:00 08/03/20 12:33 DC 08/03/20 09:47 Tamsulosin HCl (Flomax) 0.4 mg 1X ONCE PO 08/02/20 21:00 08/02/20 21:01 DC 08/02/20 21:01 Tamsulosin HCl (Flomax) 0.4 mg BID PO 08/03/20 14:00 08/09/20 20:49 Risperidone (RisperDAL) 0.25 mg QHS PO 08/03/20 21:00 08/09/20 20:49 Trazodone HCl (Desyrel) 100 mg QHS PO 08/05/20 21:00 08/09/20 20:49 Levofloxacin (Levaquin) 250 mg DAILY PO 08/06/20 11:30 08/10/20 23:59 08/09/20 09:11 Olanzapine (ZyPREXA ZYDIS) 5 mg PRN Q2HR PRN PO PSYCHOSIS 08/06/20 13:45 08/07/20 01:06 Lorazepam (Ativan) 1 mg 1X ONCE PO 08/06/20 18:15 08/06/20 18:22 DC Lorazepam (Ativan) 1 mg 1X PRN PO ANXIETY / AGITATION 08/06/20 18:30 08/07/20 00:00 DC 08/06/20 18:52 Lactobacillus Rhamnosus (Culturelle) 1 cap BID PO 08/07/20 21:00 08/09/20 20:49 I have reviewed the current psychotropics carefully including drug interactions. Risk benefit ratio favors no change other than as noted in my dictated progress note. Diagnosis: Problems: (1) Psychotic disorder (2) Impulse control disorder, unspecified (3) Vascular dementia with delusions (4) Anxiety disorder, unspecified (5) Vascular dementia with depression (6) Major neurocognitive disorder RPABHAKAR MOLINA MD Aug 10, 2020 08:25
[2020-08-10] MEDS: levoFLOXacin 250 MG TABLET PO SCH (08:38)
[2020-08-10] MEDS: LACTOBACILLUS RHAMNOSUS GG 1 CAPSULE. PO SCH ×2 (08:38→20:06)
[2020-08-10] MEDS: TAMSULOSIN 0.4 MG CAP.ER.24H. PO SCH ×2 (08:38→20:07)
[2020-08-10] MEDS: PANTOPRAZOLE 40 MG TABLET. PO SCH (08:38)
[2020-08-10] MEDS: MULTIVITAMIN with MINERAL TABLET. PO SCH (08:39)
[2020-08-10] MEDS: FENOFIBRATE NANOCRYSTALLIZED 48 MG TABLET PO SCH (08:39)
[2020-08-10] MEDS: METOPROLOL SUCC 24HR ER 50 MG TAB.ER.24H. PO SCH (09:00)
[2020-08-10] MEDS: FLUTICASONE 50MCG/NASAL SPRAY 16GM BOTTLE. NS SCH (09:00)
--- NOTE | 2020-08-10 12:30 | NUR ---
WEEKLY ACTIVITY THERAPY NOTE Date of Admission: 08/01 Date of AT Assessment: 08/04 Precipitating behaviors that initiated intake and admission: Patient was reported to be aggressive towards his , noncompliant with medications. Goal aimed:increase stress management/relaxation and socialization skills Initial Goal: Pt will participate in at least one individual or group Activity Therapy session before discharge. Weekly progress towards goal: exceeded, 08/28 Group participation level: 1 min, 1 full Weekly highlights: fully engaged in balloon bop on Friday Behaviors observed: Fri group (min)-Pt. wandered into group, talked to self, tactile hallucinations throughout group, followed two exercises, minimally, complained of not feeling well, started to get restless, needed reminders to wear mask correctly different times in group. [employer] LAW[employer]ER asked for assistance and potential rest room break. Fri group (full)- Pt fully participated in balloon bop activity. Pt requested a couple of songs and appeared to listen along. Pt mentioned going home to his a couple of times. Pt was pleasant with peers and staff. Pt laughed and smiled a couple of times. Plan: change goal to: Pt. will participate in at least three Activity Therapy groups before discharge Beneficial adaptations:
--- NOTE | 2020-08-10 15:08 | NUR ---
Patient sitting in wheelchair in room at time of assessment. Patient is alert but confused and forgetful. He is pleasant, calm and cooperative. Asks to call spouse today so he did and spoke to her briefly. Patient takes medication whole with no problems. No further concerns or complaints at this time.
[2020-08-10 16:09] VITALS: BP 123/79
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
[2020-08-10] MEDS: traZODone 100 MG TABLET. PO SCH (20:06)
[2020-08-10] MEDS: MELATONIN 3 MG TABLET PO SCH (20:06)
[2020-08-10] MEDS: risperiDONE 0.25 MG TABLET. PO SCH (20:07)
[2020-08-10] MEDS: SERTRALINE 25 MG TABLET. PO SCH (20:07)
--- NOTE | 2020-08-10 21:13 | PDOC ---
Exam Note: Manish Note: Please also refer to the separate dictated note~for this date of service dictated separately.~Patient seen individually. Discussed the patient with Nursing staff reviewed the chart.~Reviewed interim history and current functioning. Reviewed vital signs,~Labs/ Radiology~and current medications noted below. Continue current treatment with the changes noted in the dictated addendum note Assessment: Vital Signs/I&O: Vital Signs Date Time Temp Pulse Resp B/P (MAP) Pulse Ox O2 Delivery O2 Flow Rate FiO2 08/10/20 16:09 98.6 103 16 123/79 (94) 95 08/10/20 06:17 Room Air I & O 08/09/20 08/09/20 08/10/20 15:00 23:00 07:00 Intake Total 400 ml 300 ml Output Total 200 ml Balance 200 ml 300 ml Current Medications: Meds: Current Medications Medications (Trade) Dose Ordered Sig/Sonia Route PRN Reason Start Time Stop Time Status Last Admin Dose Admin Acetaminophen (Tylenol) 650 mg PRN Q6HRS PRN PO MILD PAIN / TEMP > 100.3'F 08/01/20 15:45 08/08/20 19:40 Multi-Ingredient Ointment (Analgesic [place]) 1 olu PRN QID PRN TP MUSCLE PAIN 08/01/20 15:45 08/10/20 08:39 Al Hydroxide/Mg Hydroxide (Mylanta Plus Xs) 15 ml PRN AFTMEALHC PRN PO DYSPEPSIA 08/01/20 15:45 Magnesium Hydroxide (Milk Of Magnesia) 2,400 mg PRN QHS PRN PO CONSTIPATION 08/01/20 15:45 08/06/20 06:06 Fenofibrate (Tricor) 48 mg DAILY PO 08/02/20 09:00 08/10/20 08:39 Fluticasone Propionate (Flonase) 2 spray DAILY NS 08/02/20 09:00 08/10/20 09:00 Metoprolol Succinate (Toprol Xl) 50 mg DAILY PO 08/02/20 09:00 08/10/20 09:00 Mirtazapine (Remeron) 15 mg QHS PO 08/01/20 21:00 08/03/20 18:01 DC 08/02/20 20:59 Olanzapine (ZyPREXA ZYDIS) 5 mg DAILY PO 08/02/20 09:00 08/03/20 18:01 DC 08/03/20 09:47 Pantoprazole Sodium (Protonix) 40 mg DAILY PO 08/02/20 09:00 08/10/20 08:38 Non-Formulary Medication (Lutein ) 20 mg DAILY PO 08/02/20 09:00 UNV Multivitamins/ Calcium (Thera-M Plus) 1 tab DAILY PO 08/02/20 09:00 08/10/20 08:39 Olanzapine (ZyPREXA ZYDIS) 2.5 mg PRN Q2HR PRN PO PSYCHOSIS 08/01/20 23:30 08/06/20 13:43 DC 08/06/20 09:53 Trazodone HCl (Desyrel) 50 mg PRN QHS PRN PO INSOMNIA, MAY REPEAT X2 08/01/20 23:30 08/07/20 01:06 Melatonin (Melatonin) 3 mg QHS PO 08/02/20 21:00 08/10/20 20:06 Tamsulosin HCl (Flomax) 0.4 mg DAILY PO 08/03/20 09:00 08/03/20 12:33 DC 08/03/20 09:47 Tamsulosin HCl (Flomax) 0.4 mg 1X ONCE PO 08/02/20 21:00 08/02/20 21:01 DC 08/02/20 21:01 Tamsulosin HCl (Flomax) 0.4 mg BID PO 08/03/20 14:00 08/10/20 20:07 Risperidone (RisperDAL) 0.25 mg QHS PO 08/03/20 21:00 08/10/20 20:07 Trazodone HCl (Desyrel) 100 mg QHS PO 08/05/20 21:00 08/10/20 20:06 Levofloxacin (Levaquin) 250 mg DAILY PO 08/06/20 11:30 08/10/20 23:59 08/10/20 08:38 Olanzapine (ZyPREXA ZYDIS) 5 mg PRN Q2HR PRN PO PSYCHOSIS 08/06/20 13:45 08/07/20 01:06 Lorazepam (Ativan) 1 mg 1X ONCE PO 08/06/20 18:15 08/06/20 18:22 DC Lorazepam (Ativan) 1 mg 1X PRN PO ANXIETY / AGITATION 08/06/20 18:30 08/07/20 00:00 DC 08/06/20 18:52 Lactobacillus Rhamnosus (Culturelle) 1 cap BID PO 08/07/20 21:00 08/10/20 20:06 Sertraline HCl (Zoloft) 25 mg QHS PO 08/10/20 21:00 08/10/20 20:07 Current Medications Medications (Trade) Dose Ordered Sig/Sonia Route PRN Reason Start Time Stop Time Status Last Admin Dose Admin Sertraline HCl (Zoloft) 25 mg QHS PO 08/10/20 21:00 08/10/20 20:07 I have reviewed the current psychotropics carefully including drug interactions. Risk benefit ratio favors no change other than as noted in my dictated progress note. Diagnosis: Problems: (1) Psychotic disorder (2) Impulse control disorder, unspecified (3) Vascular dementia with delusions (4) Anxiety disorder, unspecified (5) Vascular dementia with depression (6) Major neurocognitive disorder PRABHAKAR MOLINA MD Aug 10, 2020 21:13
--- NOTE | 2020-08-10 23:05 | NUR ---
Patient is delusional and states he will be taking some cows up to [place] in the morning. He spoke to his daughter aime on the phone and stated that he had a nice conversation with her. Patient continues to be restless tonight and is talking to himself in his room. Will continue to monitor.
[2020-08-10] MEDS: traZODone 50 MG TABLET. PO PRN (23:09)
--- NOTE | 2020-08-10 23:10 | NUR ---
PRN trazodone given to patient for insomnia and PRN zyprexa given for delusional conversations. Will continue to monitor. Addendum: 08/10/20 at 2323 by ANKUR RAHMAN RN Patient compliant with PRN medication and was yodeling when nurse brought it to him.
[2020-08-11 06:19] VITALS: BP 166/92
[2020-08-11] MEDS: FENOFIBRATE NANOCRYSTALLIZED 48 MG TABLET PO SCH (09:04)
[2020-08-11] MEDS: FLUTICASONE 50MCG/NASAL SPRAY 16GM BOTTLE. NS SCH (09:04)
[2020-08-11] MEDS: TAMSULOSIN 0.4 MG CAP.ER.24H. PO SCH ×2 (09:04→21:03)
[2020-08-11] MEDS: LACTOBACILLUS RHAMNOSUS GG 1 CAPSULE. PO SCH ×2 (09:04→21:03)
[2020-08-11] MEDS: MULTIVITAMIN with MINERAL TABLET. PO SCH (09:04)
[2020-08-11] MEDS: PANTOPRAZOLE 40 MG TABLET. PO SCH (09:04)
[2020-08-11] MEDS: METOPROLOL SUCC 24HR ER 50 MG TAB.ER.24H. PO SCH (09:04)
--- NOTE | 2020-08-11 09:06 | PDOC ---
Exam Note: Manish Note: This note is a late entry for 08/10/2020 covers elements not covered in my initial note. Subjective: The patient was reviewed on telehealth rounds in the morning of 08/10/2020 for a treatment team meeting with Verna Prakash, Tiarra Pendleton and Analisa (social and human services assistant), Lashay, activity therapy and Roselyn ULLOA. Discussed with nursing staff, reviewed the chart. He slept 6-1/4 hours previous night. The patients Halina attended the treatment team meeting. We had a long discussion about the patients history, diagnoses, cortical atrophy on the CT head with ventriculomegaly and behaviors at home including chasing the with paring knife. He would be very apologetic after this but appears to have some sundowning, worsening paranoia at this time. still definitely wants him home once he stabilized rather than a nursing facility. Review of Systems: No CV, , pulmonary, eye, ENT system symptoms on review. Mental Status Exam: The patient is oriented to himself. Insight and judgment, recent memory is impaired. Language function is intact. Attention span is short. Mood and affect less withdrawn. No suicidal or homicidal ideation. Laboratory Data: Reviewed. Impression: Major neurocognitive disorder Alzheimer vascular with delusion, depression, behavioral disturbance. Anxiety disorder unspecified. Impulse control disorder. Plan: Continue Risperdal 0.25 mg h.s. We may need to increase this gradually. Maintain rest of the psychotropics unchanged. Consider Depakote as a mood stabilizer and for his impulse control. Assessment: Vital Signs/I&O: Vital Signs Date Time Temp Pulse Resp B/P (MAP) Pulse Ox O2 Delivery O2 Flow Rate FiO2 08/11/20 06:19 97.2 124 18 166/92 (116) 95 08/10/20 06:17 Room Air I & O 08/10/20 08/10/20 08/11/20 15:00 23:00 07:00 Intake Total 720 ml 360 ml Output Total 350 ml Balance 370 ml 360 ml Current Medications: Meds: Current Medications Medications (Trade) Dose Ordered Sig/Sonia Route PRN Reason Start Time Stop Time Status Last Admin Dose Admin Acetaminophen (Tylenol) 650 mg PRN Q6HRS PRN PO MILD PAIN / TEMP > 100.3'F 08/01/20 15:45 08/08/20 19:40 Multi-Ingredient Ointment (Analgesic [place]) 1 olu PRN QID PRN TP MUSCLE PAIN 08/01/20 15:45 08/10/20 08:39 Al Hydroxide/Mg Hydroxide (Mylanta Plus Xs) 15 ml PRN AFTMEALHC PRN PO DYSPEPSIA 08/01/20 15:45 Magnesium Hydroxide (Milk Of Magnesia) 2,400 mg PRN QHS PRN PO CONSTIPATION 08/01/20 15:45 08/06/20 06:06 Fenofibrate (Tricor) 48 mg DAILY PO 08/02/20 09:00 08/10/20 08:39 Fluticasone Propionate (Flonase) 2 spray DAILY NS 08/02/20 09:00 08/10/20 09:00 Metoprolol Succinate (Toprol Xl) 50 mg DAILY PO 08/02/20 09:00 08/10/20 09:00 Mirtazapine (Remeron) 15 mg QHS PO 08/01/20 21:00 08/03/20 18:01 DC 08/02/20 20:59 Olanzapine (ZyPREXA ZYDIS) 5 mg DAILY PO 08/02/20 09:00 08/03/20 18:01 DC 08/03/20 09:47 Pantoprazole Sodium (Protonix) 40 mg DAILY PO 08/02/20 09:00 08/10/20 08:38 Non-Formulary Medication (Lutein ) 20 mg DAILY PO 08/02/20 09:00 UNV Multivitamins/ Calcium (Thera-M Plus) 1 tab DAILY PO 08/02/20 09:00 08/10/20 08:39 Olanzapine (ZyPREXA ZYDIS) 2.5 mg PRN Q2HR PRN PO PSYCHOSIS 08/01/20 23:30 08/06/20 13:43 DC 08/06/20 09:53 Trazodone HCl (Desyrel) 50 mg PRN QHS PRN PO INSOMNIA, MAY REPEAT X2 08/01/20 23:30 08/10/20 23:09 Melatonin (Melatonin) 3 mg QHS PO 08/02/20 21:00 08/10/20 20:06 Tamsulosin HCl (Flomax) 0.4 mg DAILY PO 08/03/20 09:00 08/03/20 12:33 DC 08/03/20 09:47 Tamsulosin HCl (Flomax) 0.4 mg 1X ONCE PO 08/02/20 21:00 08/02/20 21:01 DC 08/02/20 21:01 Tamsulosin HCl (Flomax) 0.4 mg BID PO 08/03/20 14:00 08/10/20 20:07 Risperidone (RisperDAL) 0.25 mg QHS PO 08/03/20 21:00 08/10/20 20:07 Trazodone HCl (Desyrel) 100 mg QHS PO 08/05/20 21:00 08/10/20 20:06 Levofloxacin (Levaquin) 250 mg DAILY PO 08/06/20 11:30 08/10/20 23:59 DC 08/10/20 08:38 Olanzapine (ZyPREXA ZYDIS) 5 mg PRN Q2HR PRN PO PSYCHOSIS 08/06/20 13:45 08/10/20 23:09 Lorazepam (Ativan) 1 mg 1X ONCE PO 08/06/20 18:15 08/06/20 18:22 DC Lorazepam (Ativan) 1 mg 1X PRN PO ANXIETY / AGITATION 08/06/20 18:30 08/07/20 00:00 DC 08/06/20 18:52 Lactobacillus Rhamnosus (Culturelle) 1 cap BID PO 08/07/20 21:00 08/10/20 20:06 Sertraline HCl (Zoloft) 25 mg QHS PO 08/10/20 21:00 08/10/20 20:07 Current Medications Medications (Trade) Dose Ordered Sig/Sonia Route PRN Reason Start Time Stop Time Status Last Admin Dose Admin Sertraline HCl (Zoloft) 25 mg QHS PO 08/10/20 21:00 08/10/20 20:07 I have reviewed the current psychotropics carefully including drug interactions. Risk benefit ratio favors no change other than as noted in my dictated progress note. Diagnosis: Problems: (1) Psychotic disorder (2) Impulse control disorder, unspecified (3) Vascular dementia with delusions (4) Anxiety disorder, unspecified (5) Vascular dementia with depression (6) Major neurocognitive disorder PRABHAKAR MOLINA MD Aug 11, 2020 09:06
[2020-08-11] MEDS: ACETAMINOPHEN 325 MG TABLET PO PRN (12:14)
[2020-08-11 15:29] VITALS: BP 120/68
[2020-08-11] MEDS: traZODone 100 MG TABLET. PO SCH (21:03)
[2020-08-11] MEDS: MELATONIN 3 MG TABLET PO SCH (21:03)
[2020-08-11] MEDS: SERTRALINE 25 MG TABLET. PO SCH (21:03)
[2020-08-11] MEDS: risperiDONE 0.5 MG TABLET. PO SCH (21:06)
--- NOTE | 2020-08-11 21:43 | PDOC ---
Exam Note: Manish Note: Please also refer to the separate dictated note~for this date of service dictated separately.~Patient seen individually. Discussed the patient with Nursing staff reviewed the chart.~Reviewed interim history and current functioning. Reviewed vital signs,~Labs/ Radiology~and current medications noted below. Continue current treatment with the changes noted in the dictated addendum note Assessment: Vital Signs/I&O: Vital Signs Date Time Temp Pulse Resp B/P (MAP) Pulse Ox O2 Delivery O2 Flow Rate FiO2 08/11/20 15:29 98.9 125 20 120/68 (85) 95 Room Air I & O 08/10/20 08/10/20 08/11/20 15:00 23:00 07:00 Intake Total 720 ml 360 ml Output Total 350 ml Balance 370 ml 360 ml Current Medications: Meds: Current Medications Medications (Trade) Dose Ordered Sig/Sonia Route PRN Reason Start Time Stop Time Status Last Admin Dose Admin Risperidone (RisperDAL) 0.5 mg QHS PO 08/11/20 21:00 08/11/20 21:06 I have reviewed the current psychotropics carefully including drug interactions. Risk benefit ratio favors no change other than as noted in my dictated progress note. Diagnosis: Problems: (1) Psychotic disorder (2) Impulse control disorder, unspecified (3) Vascular dementia with delusions (4) Anxiety disorder, unspecified (5) Vascular dementia with depression (6) Major neurocognitive disorder PRABHAKAR MOLINA MD Aug 11, 2020 21:43
--- NOTE | 2020-08-12 03:44 | NUR ---
Nursing Note The patient was calm, cooperative and disorganized. The patient took his medication whole. The patient was able to state only his first and last name and date of during his assessment. The patient was pleasant during interactions with this nurse.
[2020-08-12 06:39] VITALS: BP 127/87
[2020-08-12] MEDS: FLUTICASONE 50MCG/NASAL SPRAY 16GM BOTTLE. NS SCH (08:59)
[2020-08-12] MEDS: FENOFIBRATE NANOCRYSTALLIZED 48 MG TABLET PO SCH (08:59)
[2020-08-12] MEDS: LACTOBACILLUS RHAMNOSUS GG 1 CAPSULE. PO SCH ×2 (09:00→19:59)
[2020-08-12] MEDS: TAMSULOSIN 0.4 MG CAP.ER.24H. PO SCH ×2 (09:00→19:58)
[2020-08-12] MEDS: PANTOPRAZOLE 40 MG TABLET. PO SCH (09:00)
[2020-08-12] MEDS: METOPROLOL SUCC 24HR ER 50 MG TAB.ER.24H. PO SCH (09:00)
[2020-08-12] MEDS: MULTIVITAMIN with MINERAL TABLET. PO SCH (09:00)
--- NOTE | 2020-08-12 14:48 | PN ---
DATE: 08/12/2020 SUBJECTIVE: The patient was seen today, met with the staff, chart reviewed and also covering for Dr. Almeida. Staff reports continued behavior problems including irritability, confusion, periods of agitation. OBSERVATION: VITAL SIGNS: Temperature 97.1, blood pressure 127/87, pulse 100, respirations 16, O2 sat 93%. GENERAL: Slept about 5 hours last night. Appetite fair. MEDICATIONS: The patient's current medications include Risperdal 0.5 mg at night, Zoloft 25 mg at night, trazodone 100 mg at night. The patient is also on p.r.n. medications including olanzapine and also trazodone. The patient is currently not having any major side effects to medications. ASSESSMENT: Major neurocognitive disorder, most likely vascular with delusions, depression, and behavioral disturbances and also psychotic disorder, unspecified. PLAN: Continue with the current treatment plan. LENGTH OF STAY: 5-7 days. AVIVA DEWITT MD DR: [place]/romina JOB#: [id number] / [id number]
[2020-08-12 15:43] VITALS: BP 119/70
--- NOTE | 2020-08-12 16:22 | NUR ---
Pt has been complaint and appropriate with staff in language and behaviors so far during shift. He has taken medications without difficulty. He denies SI/HI, denies pain. Hernandez catheter is in place and patent; urine is claudia colored and slightly cloudy, no sediment observed. Education provided to call for staff assistance prior to amb d/t drainage bag being attached to bed frame, pt verbalized understanding. He is alert to self only; during assessment he believed he had just completed a hair cut in [place]. Reorientation provided. He received a phone call and had a short conversation with his daughter. Will pass on to the following shift
[2020-08-12] MEDS: risperiDONE 0.5 MG TABLET. PO SCH (19:58)
[2020-08-12] MEDS: MELATONIN 3 MG TABLET PO SCH (19:58)
[2020-08-12] MEDS: traZODone 100 MG TABLET. PO SCH (19:58)
[2020-08-12] MEDS: SERTRALINE 25 MG TABLET. PO SCH (19:58)
--- NOTE | 2020-08-12 21:21 | PDOC ---
Exam Note: Manish Note: This note is a late entry for 08/11/2020 covers elements not covered in my initial note. Subjective: The patient was reviewed on telehealth rounds in the evening of 08/11/2020 with Roselyn ULLOA. Discussed with nursing staff, reviewed the chart. He slept 5-1/2 hours previous night. Early this morning the patient was extremely agitated, labile in his mood, kicking and trying to bite staff, believed people were trying to hurt him. He did better later in the day. Review of Systems: No CV, , pulmonary, eye, ENT system symptoms on review per nursing report. Mental Status Exam: The patient is oriented to himself. He was somewhat asleep and assessed all this via observations per nursing staff. Insight and judgment, recent memory is impaired. Language function is intact. Attention span is short. Mood and affect less withdrawn. No suicidal or homicidal ideation. Laboratory Data: Reviewed. Impression: Major neurocognitive disorder Alzheimer vascular with delusion, depression, behavioral disturbance. Anxiety disorder unspecified. Impulse control disorder. Plan: No change from initial note. Assessment: Vital Signs/I&O: Vital Signs Date Time Temp Pulse Resp B/P (MAP) Pulse Ox O2 Delivery O2 Flow Rate FiO2 08/12/20 15:43 98.7 111 20 119/70 (86) 95 Room Air I & O 08/11/20 08/11/20 08/12/20 15:00 23:00 07:00 Intake Total 600 ml 100 ml Output Total 325 ml 450 ml Balance 275 ml -350 ml Current Medications: Meds: Current Medications Medications (Trade) Dose Ordered Sig/Sonia Route PRN Reason Start Time Stop Time Status Last Admin Dose Admin Acetaminophen (Tylenol) 650 mg PRN Q6HRS PRN PO MILD PAIN / TEMP > 100.3'F 08/01/20 15:45 08/11/20 12:14 Multi-Ingredient Ointment (Analgesic [place]) 1 olu PRN QID PRN TP MUSCLE PAIN 08/01/20 15:45 08/10/20 08:39 Al Hydroxide/Mg Hydroxide (Mylanta Plus Xs) 15 ml PRN AFTMEALHC PRN PO DYSPEPSIA 08/01/20 15:45 Magnesium Hydroxide (Milk Of Magnesia) 2,400 mg PRN QHS PRN PO CONSTIPATION 08/01/20 15:45 08/06/20 06:06 Fenofibrate (Tricor) 48 mg DAILY PO 08/02/20 09:00 08/12/20 08:59 Fluticasone Propionate (Flonase) 2 spray DAILY NS 08/02/20 09:00 08/12/20 08:59 Metoprolol Succinate (Toprol Xl) 50 mg DAILY PO 08/02/20 09:00 08/12/20 09:00 Mirtazapine (Remeron) 15 mg QHS PO 08/01/20 21:00 08/03/20 18:01 DC 08/02/20 20:59 Olanzapine (ZyPREXA ZYDIS) 5 mg DAILY PO 08/02/20 09:00 08/03/20 18:01 DC 08/03/20 09:47 Pantoprazole Sodium (Protonix) 40 mg DAILY PO 08/02/20 09:00 08/12/20 09:00 Non-Formulary Medication (Lutein ) 20 mg DAILY PO 08/02/20 09:00 UNV Multivitamins/ Calcium (Thera-M Plus) 1 tab DAILY PO 08/02/20 09:00 08/12/20 09:00 Olanzapine (ZyPREXA ZYDIS) 2.5 mg PRN Q2HR PRN PO PSYCHOSIS 08/01/20 23:30 08/06/20 13:43 DC 08/06/20 09:53 Trazodone HCl (Desyrel) 50 mg PRN QHS PRN PO INSOMNIA, MAY REPEAT X2 08/01/20 23:30 08/10/20 23:09 Melatonin (Melatonin) 3 mg QHS PO 08/02/20 21:00 08/12/20 19:58 Tamsulosin HCl (Flomax) 0.4 mg DAILY PO 08/03/20 09:00 08/03/20 12:33 DC 08/03/20 09:47 Tamsulosin HCl (Flomax) 0.4 mg 1X ONCE PO 08/02/20 21:00 08/02/20 21:01 DC 08/02/20 21:01 Tamsulosin HCl (Flomax) 0.4 mg BID PO 08/03/20 14:00 08/12/20 19:58 Risperidone (RisperDAL) 0.25 mg QHS PO 08/03/20 21:00 08/11/20 18:23 DC 08/10/20 20:07 Trazodone HCl (Desyrel) 100 mg QHS PO 08/05/20 21:00 08/12/20 19:58 Levofloxacin (Levaquin) 250 mg DAILY PO 08/06/20 11:30 08/10/20 23:59 DC 08/10/20 08:38 Olanzapine (ZyPREXA ZYDIS) 5 mg PRN Q2HR PRN PO PSYCHOSIS 08/06/20 13:45 08/12/20 20:00 Lorazepam (Ativan) 1 mg 1X ONCE PO 08/06/20 18:15 08/06/20 18:22 DC Lorazepam (Ativan) 1 mg 1X PRN PO ANXIETY / AGITATION 08/06/20 18:30 08/07/20 00:00 DC 08/06/20 18:52 Lactobacillus Rhamnosus (Culturelle) 1 cap BID PO 08/07/20 21:00 08/12/20 19:59 Sertraline HCl (Zoloft) 25 mg QHS PO 08/10/20 21:00 08/12/20 19:58 Risperidone (RisperDAL) 0.5 mg QHS PO 08/11/20 21:00 08/12/20 19:58 I have reviewed the current psychotropics carefully including drug interactions. Risk benefit ratio favors no change other than as noted in my dictated progress note. Diagnosis: Problems: (1) Impulse control disorder, unspecified (2) Vascular dementia with delusions (3) Anxiety disorder, unspecified (4) Vascular dementia with depression (5) Major neurocognitive disorder PRABHAKAR MOLINA MD Aug 12, 2020 21:20
--- NOTE | 2020-08-12 23:29 | NUR ---
[facility]. Pt very agitated, delusional, verbally aggressive. Pt yelling and mimicking staff. Pt labile; asking for help at one minute and then yelling at staff when they attempted help. Compliant with whole medications.
[2020-08-13 06:50] VITALS: BP 143/87
[2020-08-13] MEDS: METOPROLOL SUCC 24HR ER 50 MG TAB.ER.24H. PO SCH (08:57)
[2020-08-13] MEDS: FENOFIBRATE NANOCRYSTALLIZED 48 MG TABLET PO SCH (08:57)
[2020-08-13] MEDS: TAMSULOSIN 0.4 MG CAP.ER.24H. PO SCH ×2 (08:57→19:38)
[2020-08-13] MEDS: MULTIVITAMIN with MINERAL TABLET. PO SCH (08:57)
[2020-08-13] MEDS: PANTOPRAZOLE 40 MG TABLET. PO SCH (08:57)
[2020-08-13] MEDS: FLUTICASONE 50MCG/NASAL SPRAY 16GM BOTTLE. NS SCH (08:58)
[2020-08-13] MEDS: LACTOBACILLUS RHAMNOSUS GG 1 CAPSULE. PO SCH ×2 (09:00→19:38)
--- NOTE | 2020-08-13 12:52 | NUR ---
Pt has been complaint and appropriate with staff in language and behaviors so far during shift with a brief period of being verbally abrasive to staff early in the morning. He has taken medications without difficulty. He denies SI/HI, denies pain. Hernandez catheter is in place and patent; urine is claudia colored and slightly cloudy, no sediment observed. He is alert to self only; during assessment [place] Reorientation provided gently and he verbalized understanding.. He received a phone call and had a short conversation with his Halina in the late morning. Will pass on to the following shift
--- NOTE | 2020-08-13 13:21 | PN ---
DATE: 08/13/2020 SUBJECTIVE: The patient was seen today, met with the staff, chart reviewed. Staff reports increased confusion, and disorganized thinking. He is compliant with the medications. OBSERVATION: VITAL SIGNS: Temperature 98.2, blood pressure 143/87, pulse 106, respirations 20, O2 sat 96%. GENERAL: Slept about 8 hours last night. The patient's appetite is fair. MEDICATIONS: The patient's medications and lab reviewed. His current medication includes Risperdal 0.5 mg at night, Zoloft 25 mg at night, trazodone 100 mg at night. The patient denies of any side effects to medications. ASSESSMENT: Major neurocognitive disorder, most likely vascular with delusions, depression, and behavioral disturbances; psychotic disorder, unspecified. PLAN: To continue with the plan. LENGTH OF STAY: 5-7 days. AVIVA DEWITT MD DR: [place]/romina JOB#: [id number] / [id number]
[2020-08-13 16:13] VITALS: BP 119/76
[2020-08-13 17:43] LABS: BASO % 0 % (0-3); EOS # 0.2 x10^3/uL (0.0-0.7); EOS % 1 % (0-3); HEMOGLOBIN 15.3 g/dL (13.0-17.5); LYMPH # 1.1 x10^3/uL (1.0-4.8); LYMPH % 9 % (24-48); MEAN CORPUSCULAR HEMOGLOBIN 30 pg (25-35); MEAN CORPUSCULAR HGB CONC 33 g/dL (31-37); MEAN CORPUSCULAR VOLUME 91 fL (79-100); MONO # 1.1 x10^3/uL (0.0-1.1); MONO % 10 % (0-9); NEUT # 9.3 x10^3uL (1.8-7.7); NEUT % 79 % (31-73); PLATELET COUNT 282 x10^3/uL (140-400); RED BLOOD COUNT 5.05 x10^6/uL (4.30-5.70); RED CELL DISTRIBUTION WIDTH 13.1 % (11.5-14.5); WHITE BLOOD COUNT 11.7 x10^3/uL (4.0-11.0)
[2020-08-13 17:50] LABS: ALBUMIN 2.9 g/dL (3.4-5.0); ALBUMIN/GLOBULIN RATIO 0.6 (1.0-1.7); CALCIUM 8.9 mg/dL (8.5-10.1); CREATININE 1.2 mg/dL (0.7-1.3); GFR 58.9; POTASSIUM 3.7 mmol/L (3.5-5.1); TOTAL BILIRUBIN 0.6 mg/dL (0.2-1.0); TOTAL PROTEIN 7.4 g/dL (6.4-8.2)
[2020-08-13] MEDS: risperiDONE 0.5 MG TABLET. PO SCH (19:38)
[2020-08-13] MEDS: traZODone 100 MG TABLET. PO SCH (19:38)
[2020-08-13] MEDS: MELATONIN 3 MG TABLET PO SCH (19:39)
[2020-08-13] MEDS: SERTRALINE 25 MG TABLET. PO SCH (19:39)
--- NOTE | 2020-08-13 22:21 | NUR ---
Pt calmer this evening. Compliant with shower with staff x1. Pt continues to be labile at times; yelling and arguing with staff one minute and then apologizing the next minute. Compliant with whole medications.
[2020-08-14 06:09] VITALS: BP 122/79
[2020-08-14] MEDS: PANTOPRAZOLE 40 MG TABLET. PO SCH (07:55)
[2020-08-14] MEDS: METOPROLOL SUCC 24HR ER 50 MG TAB.ER.24H. PO SCH (07:55)
[2020-08-14] MEDS: FENOFIBRATE NANOCRYSTALLIZED 48 MG TABLET PO SCH (07:56)
[2020-08-14] MEDS: LACTOBACILLUS RHAMNOSUS GG 1 CAPSULE. PO SCH ×2 (07:56→20:19)
[2020-08-14] MEDS: FLUTICASONE 50MCG/NASAL SPRAY 16GM BOTTLE. NS SCH (07:56)
[2020-08-14] MEDS: TAMSULOSIN 0.4 MG CAP.ER.24H. PO SCH ×2 (07:56→20:19)
[2020-08-14] MEDS: MULTIVITAMIN with MINERAL TABLET. PO SCH (07:56)
--- NOTE | 2020-08-14 11:10 | NUR ---
Pt has been complaint and appropriate with staff in language and behaviors so far during shift, often dayshift sees a return to disruptive behaviors in the mid to late afternoon. He has taken medications without difficulty. He denies SI/HI, denies pain. Hernandez catheter is in place and patent; urine is claudia colored and slightly cloudy, no sediment observed. He is alert to self only; during assessment he stated he was in a hospital in [place]. Reorientation provided gently and he verbalized understanding. Will pass on to the following shift
[2020-08-14 16:32] VITALS: BP 138/86
[2020-08-14] MEDS: MELATONIN 3 MG TABLET PO SCH (20:19)
[2020-08-14] MEDS: traZODone 100 MG TABLET. PO SCH (20:19)
[2020-08-14] MEDS: risperiDONE 0.5 MG TABLET. PO SCH (20:19)
[2020-08-14] MEDS: SERTRALINE 25 MG TABLET. PO SCH (20:19)
--- NOTE | 2020-08-14 21:09 | PDOC ---
Exam Note: Manish Note: Please also refer to the separate dictated note~for this date of service dictated separately.~Patient seen individually. Discussed the patient with Nursing staff reviewed the chart.~Reviewed interim history and current functioning. Reviewed vital signs,~Labs/ Radiology~and current medications noted below. Continue current treatment with the changes noted in the dictated addendum note Assessment: Vital Signs/I&O: Vital Signs Date Time Temp Pulse Resp B/P (MAP) Pulse Ox O2 Delivery O2 Flow Rate FiO2 08/14/20 16:32 98.3 79 20 138/86 (103) 96 08/12/20 15:43 Room Air I & O 08/13/20 08/13/20 08/14/20 15:00 23:00 07:00 Intake Total 240 ml 320 ml Balance 240 ml 320 ml Current Medications: I have reviewed the current psychotropics carefully including drug interactions. Risk benefit ratio favors no change other than as noted in my dictated progress note. Diagnosis: Problems: (1) Psychotic disorder (2) Impulse control disorder, unspecified (3) Vascular dementia with delusions (4) Anxiety disorder, unspecified (5) Vascular dementia with depression (6) Major neurocognitive disorder PRABHAKAR MOLINA MD Aug 14, 2020 21:09
--- NOTE | 2020-08-14 23:01 | NUR ---
Pt sitting in his wheelchair in his room this evening. Pt yelling out intermittently but calmer than previous evenings. Compliant with whole medications.
[2020-08-15 05:44] VITALS: BP 142/95
--- NOTE | 2020-08-15 09:24 | PDOC ---
Exam Note: Manish Note: This note is a late entry for 08/14/2020 covers elements not covered in my initial note. Subjective: The patient was reviewed on telehealth rounds in the evening of 08/14/2020 with eJssica ULLOA. Discussed with nursing staff, reviewed the chart. He slept 6-1/4 hours previous night. Review of Systems: No CV, , pulmonary, eye, ENT system symptoms on review per nursing report. Mental Status Exam: The patient is oriented to himself and situation. Speech has some latency, coherent. Abstraction is fair. Computation is impaired. Language function is intact. Mood and affect somewhat withdrawn. He is delusional, talking about wanting to cut someones toenails. No suicidal or homicidal ideation. Laboratory Data: Reviewed. Impression: Major neurocognitive disorder Alzheimer vascular with delusion, depression, behavioral disturbance. Anxiety disorder unspecified. Impulse control disorder. Plan: No change from initial note. Assessment: Vital Signs/I&O: Vital Signs Date Time Temp Pulse Resp B/P (MAP) Pulse Ox O2 Delivery O2 Flow Rate FiO2 08/15/20 05:44 97.6 97 18 142/95 (111) 93 08/12/20 15:43 Room Air I & O 08/14/20 08/14/20 08/15/20 15:00 23:00 07:00 Intake Total 480 ml 200 ml Output Total 400 ml 700 ml Balance 80 ml 200 ml -700 ml Current Medications: Meds: Current Medications Medications (Trade) Dose Ordered Sig/Sonia Route PRN Reason Start Time Stop Time Status Last Admin Dose Admin Acetaminophen (Tylenol) 650 mg PRN Q6HRS PRN PO MILD PAIN / TEMP > 100.3'F 08/01/20 15:45 08/11/20 12:14 Multi-Ingredient Ointment (Analgesic [place]) 1 olu PRN QID PRN TP MUSCLE PAIN 08/01/20 15:45 08/10/20 08:39 Al Hydroxide/Mg Hydroxide (Mylanta Plus Xs) 15 ml PRN AFTMEALHC PRN PO DYSPEPSIA 08/01/20 15:45 Magnesium Hydroxide (Milk Of Magnesia) 2,400 mg PRN QHS PRN PO CONSTIPATION 08/01/20 15:45 08/06/20 06:06 Fenofibrate (Tricor) 48 mg DAILY PO 08/02/20 09:00 1/18/21 07:56 Fluticasone Propionate (Flonase) 2 spray DAILY NS 08/02/20 09:00 08/14/20 07:56 Metoprolol Succinate (Toprol Xl) 50 mg DAILY PO 08/02/20 09:00 08/14/20 07:55 Mirtazapine (Remeron) 15 mg QHS PO 08/01/20 21:00 08/03/20 18:01 DC 08/02/20 20:59 Olanzapine (ZyPREXA ZYDIS) 5 mg DAILY PO 08/02/20 09:00 08/03/20 18:01 DC 08/03/20 09:47 Pantoprazole Sodium (Protonix) 40 mg DAILY PO 08/02/20 09:00 08/14/20 07:55 Non-Formulary Medication (Lutein ) 20 mg DAILY PO 08/02/20 09:00 UNV Multivitamins/ Calcium (Thera-M Plus) 1 tab DAILY PO 08/02/20 09:00 08/14/20 07:56 Olanzapine (ZyPREXA ZYDIS) 2.5 mg PRN Q2HR PRN PO PSYCHOSIS 08/01/20 23:30 08/06/20 13:43 DC 08/06/20 09:53 Trazodone HCl (Desyrel) 50 mg PRN QHS PRN PO INSOMNIA, MAY REPEAT X2 08/01/20 23:30 08/10/20 23:09 Melatonin (Melatonin) 3 mg QHS PO 08/02/20 21:00 08/14/20 20:19 Tamsulosin HCl (Flomax) 0.4 mg DAILY PO 08/03/20 09:00 08/03/20 12:33 DC 08/03/20 09:47 Tamsulosin HCl (Flomax) 0.4 mg 1X ONCE PO 08/02/20 21:00 08/02/20 21:01 DC 08/02/20 21:01 Tamsulosin HCl (Flomax) 0.4 mg BID PO 08/03/20 14:00 08/14/20 20:19 Risperidone (RisperDAL) 0.25 mg QHS PO 08/03/20 21:00 08/11/20 18:23 DC 08/10/20 20:07 Trazodone HCl (Desyrel) 100 mg QHS PO 08/05/20 21:00 08/14/20 20:19 Levofloxacin (Levaquin) 250 mg DAILY PO 08/06/20 11:30 08/10/20 23:59 DC 08/10/20 08:38 Olanzapine (ZyPREXA ZYDIS) 5 mg PRN Q2HR PRN PO PSYCHOSIS 08/06/20 13:45 08/14/20 20:19 Lorazepam (Ativan) 1 mg 1X ONCE PO 08/06/20 18:15 08/06/20 18:22 DC Lorazepam (Ativan) 1 mg 1X PRN PO ANXIETY / AGITATION 08/06/20 18:30 08/07/20 00:00 DC 08/06/20 18:52 Lactobacillus Rhamnosus (Culturelle) 1 cap BID PO 08/07/20 21:00 08/14/20 20:19 Sertraline HCl (Zoloft) 25 mg QHS PO 08/10/20 21:00 08/14/20 20:19 Risperidone (RisperDAL) 0.5 mg QHS PO 08/11/20 21:00 08/14/20 20:19 I have reviewed the current psychotropics carefully including drug interactions. Risk benefit ratio favors no change other than as noted in my dictated progress note. Diagnosis: Problems: (1) Psychotic disorder (2) Impulse control disorder, unspecified (3) Vascular dementia with delusions (4) Anxiety disorder, unspecified (5) Vascular dementia with depression (6) Major neurocognitive disorder PRABHAKAR MOLINA MD Aug 15, 2020 09:24
[2020-08-15] MEDS: MULTIVITAMIN with MINERAL TABLET. PO SCH (09:37)
[2020-08-15] MEDS: TAMSULOSIN 0.4 MG CAP.ER.24H. PO SCH ×2 (09:38→19:45)
[2020-08-15] MEDS: PANTOPRAZOLE 40 MG TABLET. PO SCH (09:38)
[2020-08-15] MEDS: LACTOBACILLUS RHAMNOSUS GG 1 CAPSULE. PO SCH ×2 (09:38→19:45)
[2020-08-15] MEDS: METOPROLOL SUCC 24HR ER 50 MG TAB.ER.24H. PO SCH (09:38)
[2020-08-15] MEDS: FLUTICASONE 50MCG/NASAL SPRAY 16GM BOTTLE. NS SCH (09:40)
[2020-08-15] MEDS: FENOFIBRATE NANOCRYSTALLIZED 48 MG TABLET PO SCH (09:40)
[2020-08-15 16:11] VITALS: BP 127/83
[2020-08-15] MEDS: MELATONIN 3 MG TABLET PO SCH (19:45)
[2020-08-15] MEDS: SERTRALINE 25 MG TABLET. PO SCH (19:46)
[2020-08-15] MEDS: risperiDONE 0.5 MG TABLET. PO SCH (19:46)
[2020-08-15] MEDS: traZODone 100 MG TABLET. PO SCH (19:46)
--- NOTE | 2020-08-15 21:09 | PDOC ---
Exam Note: Manish Note: Please also refer to the separate dictated note~for this date of service dictated separately.~Patient seen individually. Discussed the patient with Nursing staff reviewed the chart.~Reviewed interim history and current functioning. Reviewed vital signs,~Labs/ Radiology~and current medications noted below. Continue current treatment with the changes noted in the dictated addendum note Assessment: Vital Signs/I&O: Vital Signs Date Time Temp Pulse Resp B/P (MAP) Pulse Ox O2 Delivery O2 Flow Rate FiO2 08/15/20 16:11 98.0 94 16 127/83 (98) 95 08/12/20 15:43 Room Air I & O 08/14/20 08/14/20 08/15/20 15:00 23:00 07:00 Intake Total 480 ml 200 ml Output Total 400 ml 700 ml Balance 80 ml 200 ml -700 ml Current Medications: Meds: Current Medications Medications (Trade) Dose Ordered Sig/Sonia Route PRN Reason Start Time Stop Time Status Last Admin Dose Admin Acetaminophen (Tylenol) 650 mg PRN Q6HRS PRN PO MILD PAIN / TEMP > 100.3'F 08/01/20 15:45 08/11/20 12:14 Multi-Ingredient Ointment (Analgesic [place]) 1 olu PRN QID PRN TP MUSCLE PAIN 08/01/20 15:45 08/10/20 08:39 Al Hydroxide/Mg Hydroxide (Mylanta Plus Xs) 15 ml PRN AFTMEALHC PRN PO DYSPEPSIA 08/01/20 15:45 Magnesium Hydroxide (Milk Of Magnesia) 2,400 mg PRN QHS PRN PO CONSTIPATION 08/01/20 15:45 08/06/20 06:06 Fenofibrate (Tricor) 48 mg DAILY PO 08/02/20 09:00 08/15/20 09:40 Fluticasone Propionate (Flonase) 2 spray DAILY NS 08/02/20 09:00 08/15/20 09:40 Metoprolol Succinate (Toprol Xl) 50 mg DAILY PO 08/02/20 09:00 08/15/20 09:38 Mirtazapine (Remeron) 15 mg QHS PO 08/01/20 21:00 08/03/20 18:01 DC 08/02/20 20:59 Olanzapine (ZyPREXA ZYDIS) 5 mg DAILY PO 08/02/20 09:00 08/03/20 18:01 DC 08/03/20 09:47 Pantoprazole Sodium (Protonix) 40 mg DAILY PO 08/02/20 09:00 08/15/20 09:38 Non-Formulary Medication (Lutein ) 20 mg DAILY PO 08/02/20 09:00 UNV Multivitamins/ Calcium (Thera-M Plus) 1 tab DAILY PO 08/02/20 09:00 08/15/20 09:37 Olanzapine (ZyPREXA ZYDIS) 2.5 mg PRN Q2HR PRN PO PSYCHOSIS 08/01/20 23:30 08/06/20 13:43 DC 08/06/20 09:53 Trazodone HCl (Desyrel) 50 mg PRN QHS PRN PO INSOMNIA, MAY REPEAT X2 08/01/20 23:30 08/10/20 23:09 Melatonin (Melatonin) 3 mg QHS PO 08/02/20 21:00 08/15/20 19:45 Tamsulosin HCl (Flomax) 0.4 mg DAILY PO 08/03/20 09:00 08/03/20 12:33 DC 08/03/20 09:47 Tamsulosin HCl (Flomax) 0.4 mg 1X ONCE PO 08/02/20 21:00 08/02/20 21:01 DC 08/02/20 21:01 Tamsulosin HCl (Flomax) 0.4 mg BID PO 08/03/20 14:00 08/15/20 19:45 Risperidone (RisperDAL) 0.25 mg QHS PO 08/03/20 21:00 08/11/20 18:23 DC 08/10/20 20:07 Trazodone HCl (Desyrel) 100 mg QHS PO 08/05/20 21:00 08/15/20 19:46 Levofloxacin (Levaquin) 250 mg DAILY PO 08/06/20 11:30 08/10/20 23:59 DC 08/10/20 08:38 Olanzapine (ZyPREXA ZYDIS) 5 mg PRN Q2HR PRN PO PSYCHOSIS 08/06/20 13:45 08/15/20 19:46 Lorazepam (Ativan) 1 mg 1X ONCE PO 08/06/20 18:15 08/06/20 18:22 DC Lorazepam (Ativan) 1 mg 1X PRN PO ANXIETY / AGITATION 08/06/20 18:30 08/07/20 00:00 DC 08/06/20 18:52 Lactobacillus Rhamnosus (Culturelle) 1 cap BID PO 08/07/20 21:00 08/15/20 19:45 Sertraline HCl (Zoloft) 25 mg QHS PO 08/10/20 21:00 08/15/20 19:46 Risperidone (RisperDAL) 0.5 mg QHS PO 08/11/20 21:00 08/15/20 19:46 I have reviewed the current psychotropics carefully including drug interactions. Risk benefit ratio favors no change other than as noted in my dictated progress note. Diagnosis: Problems: (1) Psychotic disorder (2) Impulse control disorder, unspecified (3) Vascular dementia with delusions (4) Anxiety disorder, unspecified (5) Vascular dementia with depression (6) Major neurocognitive disorder PRABHAKAR MOLINA MD Aug 15, 2020 21:09
--- NOTE | 2020-08-16 05:49 | NUR ---
Nursing Note The patient was agitated and irritable this shift. The patient was located in the quiet brewer for most of the shift while awake. The patient was agitated during all interactions initially this shift but eventually was receptive to taking his medication whole. The patient received PRN Zyprexa per PRN order. The patient calmed after taking the zyprexa and was compliant with HS cares.
[2020-08-16 06:37] VITALS: BP 125/78
[2020-08-16] MEDS: TAMSULOSIN 0.4 MG CAP.ER.24H. PO SCH ×2 (09:00→20:52)
[2020-08-16] MEDS: FENOFIBRATE NANOCRYSTALLIZED 48 MG TABLET PO SCH (09:00)
[2020-08-16] MEDS: MULTIVITAMIN with MINERAL TABLET. PO SCH (09:00)
[2020-08-16] MEDS: LACTOBACILLUS RHAMNOSUS GG 1 CAPSULE. PO SCH ×2 (09:00→20:53)
[2020-08-16] MEDS: METOPROLOL SUCC 24HR ER 50 MG TAB.ER.24H. PO SCH (09:00)
[2020-08-16] MEDS: FLUTICASONE 50MCG/NASAL SPRAY 16GM BOTTLE. NS SCH (09:00)
[2020-08-16] MEDS: PANTOPRAZOLE 40 MG TABLET. PO SCH (09:00)
--- NOTE | 2020-08-16 11:22 | NUR ---
Patient in room at time of assessment. Patient sitting in wheelchair finishing breakfast. Patient takes medications whole with no problems. Patient is sarcastic and very irritable. He gets agitated easily. Patient had pearson catheter removed this AM so we are on voiding protocol. We will see if he voids and if he does not at 6 hours we will scan his bladder and see how full his is. We will talk to MD to see what they would like for us to do if he continues to not void and how long they would like for us to wait. No further concerns a this time. Also, patient spouse is concerned that he is using wheelchair. PT and OT came and saw him and he would not cooperate with them at all. He will not stand for us so they are thinking he will be appropriate to go to Rehab before going home so he can be worked with. Most likely this is behavioral due to increase in confusion and dementia.
--- NOTE | 2020-08-16 11:44 | NUR ---
Bladder scan performed showing 224ml. Will see again a 2 hours what scans at. Patient does not want to sit on toilet and will not try to go right now.
--- NOTE | 2020-08-16 14:24 | EKG ---
[address] [address] Test Date: 2020-08-01 Test Time: 18:10:28 Pat Name: GLYNN BRANNONRocCyndi Department: Room: [address] [place] [address] Gender: M [employer]: : 1945 Requested By: PRABHAKAR MOLINA Order Number: [id number] Reading MD: Measurements Intervals [place] Rate: P: NE: QRS: QRSD: T: QT: QTc: Interpretive Statements
[2020-08-16 15:22] VITALS: BP 125/77
--- NOTE | 2020-08-16 15:59 | NUR ---
SW received call from pt , Halina, who wanted to know if a Mortgage Field Inspector would be able to see pt. SW reports that they can put in a request for him to come over as they are not here but at a different hospital. Pt questioned if he would be able to receive communion and SW will have to ask the Mortgage Field Inspector as he is not sure that they do that. SW explained that the Mortgage Field Inspector usually comes to pray over people, read scripture or talk. Pt feels that pt would feel better if this were a possibility; especially as the cross pt wore around his neck was taken as he was told he could not have any jewelry. She believes this has affected him greatly.
[2020-08-16] MEDS: SERTRALINE 25 MG TABLET. PO SCH (20:52)
[2020-08-16] MEDS: traZODone 100 MG TABLET. PO SCH (20:52)
[2020-08-16] MEDS: risperiDONE 0.5 MG TABLET. PO SCH (20:52)
[2020-08-16] MEDS: MELATONIN 3 MG TABLET PO SCH (20:52)
--- NOTE | 2020-08-16 21:12 | PDOC ---
Exam Note: Manish Note: Please also refer to the separate dictated note~for this date of service dictated separately.~Patient seen individually. Discussed the patient with Nursing staff reviewed the chart.~Reviewed interim history and current functioning. Reviewed vital signs,~Labs/ Radiology~and current medications noted below. Continue current treatment with the changes noted in the dictated addendum note Assessment: Vital Signs/I&O: Vital Signs Date Time Temp Pulse Resp B/P (MAP) Pulse Ox O2 Delivery O2 Flow Rate FiO2 08/16/20 15:22 98.9 100 18 125/77 (93) 96 08/16/20 06:37 Room Air I & O 08/15/20 08/15/20 08/16/20 15:00 23:00 07:00 Intake Total 220 ml 460 ml Output Total 400 ml 500 ml Balance 220 ml 60 ml -500 ml Current Medications: Meds: Current Medications Medications (Trade) Dose Ordered Sig/Sonia Route PRN Reason Start Time Stop Time Status Last Admin Dose Admin Acetaminophen (Tylenol) 650 mg PRN Q6HRS PRN PO MILD PAIN / TEMP > 100.3'F 08/01/20 15:45 08/11/20 12:14 Multi-Ingredient Ointment (Analgesic [place]) 1 olu PRN QID PRN TP MUSCLE PAIN 08/01/20 15:45 08/10/20 08:39 Al Hydroxide/Mg Hydroxide (Mylanta Plus Xs) 15 ml PRN AFTMEALHC PRN PO DYSPEPSIA 08/01/20 15:45 Magnesium Hydroxide (Milk Of Magnesia) 2,400 mg PRN QHS PRN PO CONSTIPATION 08/01/20 15:45 08/06/20 06:06 Fenofibrate (Tricor) 48 mg DAILY PO 08/02/20 09:00 08/16/20 09:00 Fluticasone Propionate (Flonase) 2 spray DAILY NS 08/02/20 09:00 08/16/20 09:00 Metoprolol Succinate (Toprol Xl) 50 mg DAILY PO 08/02/20 09:00 08/16/20 09:00 Mirtazapine (Remeron) 15 mg QHS PO 08/01/20 21:00 08/03/20 18:01 DC 08/02/20 20:59 Olanzapine (ZyPREXA ZYDIS) 5 mg DAILY PO 08/02/20 09:00 08/03/20 18:01 DC 08/03/20 09:47 Pantoprazole Sodium (Protonix) 40 mg DAILY PO 08/02/20 09:00 08/16/20 09:00 Non-Formulary Medication (Lutein ) 20 mg DAILY PO 08/02/20 09:00 UNV Multivitamins/ Calcium (Thera-M Plus) 1 tab DAILY PO 08/02/20 09:00 08/16/20 09:00 Olanzapine (ZyPREXA ZYDIS) 2.5 mg PRN Q2HR PRN PO PSYCHOSIS 08/01/20 23:30 08/06/20 13:43 DC 08/06/20 09:53 Trazodone HCl (Desyrel) 50 mg PRN QHS PRN PO INSOMNIA, MAY REPEAT X2 08/01/20 23:30 08/10/20 23:09 Melatonin (Melatonin) 3 mg QHS PO 08/02/20 21:00 08/16/20 20:52 Tamsulosin HCl (Flomax) 0.4 mg DAILY PO 08/03/20 09:00 08/03/20 12:33 DC 08/03/20 09:47 Tamsulosin HCl (Flomax) 0.4 mg 1X ONCE PO 08/02/20 21:00 08/02/20 21:01 DC 08/02/20 21:01 Tamsulosin HCl (Flomax) 0.4 mg BID PO 08/03/20 14:00 08/16/20 20:52 Risperidone (RisperDAL) 0.25 mg QHS PO 08/03/20 21:00 08/11/20 18:23 DC 08/10/20 20:07 Trazodone HCl (Desyrel) 100 mg QHS PO 08/05/20 21:00 08/16/20 20:52 Levofloxacin (Levaquin) 250 mg DAILY PO 08/06/20 11:30 08/10/20 23:59 DC 08/10/20 08:38 Olanzapine (ZyPREXA ZYDIS) 5 mg PRN Q2HR PRN PO PSYCHOSIS 08/06/20 13:45 08/15/20 19:46 Lorazepam (Ativan) 1 mg 1X ONCE PO 08/06/20 18:15 08/06/20 18:22 DC Lorazepam (Ativan) 1 mg 1X PRN PO ANXIETY / AGITATION 08/06/20 18:30 08/07/20 00:00 DC 08/06/20 18:52 Lactobacillus Rhamnosus (Culturelle) 1 cap BID PO 08/07/20 21:00 08/16/20 20:53 Sertraline HCl (Zoloft) 25 mg QHS PO 08/10/20 21:00 08/16/20 20:52 Risperidone (RisperDAL) 0.5 mg QHS PO 08/11/20 21:00 08/16/20 20:52 I have reviewed the current psychotropics carefully including drug interactions. Risk benefit ratio favors no change other than as noted in my dictated progress note. Diagnosis: Problems: (1) Psychotic disorder (2) Impulse control disorder, unspecified (3) Vascular dementia with delusions (4) Anxiety disorder, unspecified (5) Vascular dementia with depression (6) Major neurocognitive disorder PRABHAKAR MOLINA MD Aug 16, 2020 21:12
--- NOTE | 2020-08-16 21:12 | PDOC ---
Exam Note: Manish Note: This note is a late entry for 08/15/2020 covers elements not covered in my initial note. Subjective: The patient was reviewed on telehealth rounds in the evening of 08/15/2020 with nursing staff. Discussed with nursing staff, reviewed the chart. He slept 6-1/4 hours previous night. The patient has been calmer. His called the nursing staff encouraging them to ambulate him since he was walking at home and the plan for him is to return home to her. He is on a voiding trial per Dr. Traylor. Generally he has had a good day, but more confused, somewhat paranoid in the evening. He spends time with another patient, was quite manic on the unit. Review of Systems: No CV, , pulmonary, eye, ENT system symptoms on review. Mental Status Exam: The patient is oriented to himself and situation. Speech has some latency. Often response is monosyllabic. Abstraction is fair. Computation is impaired. Language function is intact, somewhat confused today than the day before. No suicidal or homicidal ideation. Laboratory Data: Reviewed. Impression: Major neurocognitive disorder Alzheimer vascular with delusion, depression, behavioral disturbance. Anxiety disorder unspecified. Impulse con trol disorder. Plan: No change from initial note. We may need to increase the Risperdal currently 0.5 mg p.o. h.s. and gradually increase the Zoloft to 50 mg a day, currently 25 mg day. Maintain trazodone p.r.n. Assessment: Vital Signs/I&O: Vital Signs Date Time Temp Pulse Resp B/P (MAP) Pulse Ox O2 Delivery O2 Flow Rate FiO2 08/16/20 15:22 98.9 100 18 125/77 (93) 96 08/16/20 06:37 Room Air I & O 08/15/20 08/15/20 08/16/20 15:00 23:00 07:00 Intake Total 220 ml 460 ml Output Total 400 ml 500 ml Balance 220 ml 60 ml -500 ml Current Medications: Meds: Current Medications Medications (Trade) Dose Ordered Sig/Sonia Route PRN Reason Start Time Stop Time Status Last Admin Dose Admin Acetaminophen (Tylenol) 650 mg PRN Q6HRS PRN PO MILD PAIN / TEMP > 100.3'F 08/01/20 15:45 08/11/20 12:14 Multi-Ingredient Ointment (Analgesic [place]) 1 olu PRN QID PRN TP MUSCLE PAIN 08/01/20 15:45 08/10/20 08:39 Al Hydroxide/Mg Hydroxide (Mylanta Plus Xs) 15 ml PRN AFTMEALHC PRN PO DYSPEPSIA 08/01/20 15:45 Magnesium Hydroxide (Milk Of Magnesia) 2,400 mg PRN QHS PRN PO CONSTIPATION 08/01/20 15:45 08/06/20 06:06 Fenofibrate (Tricor) 48 mg DAILY PO 08/02/20 09:00 08/16/20 09:00 Fluticasone Propionate (Flonase) 2 spray DAILY NS 08/02/20 09:00 08/16/20 09:00 Metoprolol Succinate (Toprol Xl) 50 mg DAILY PO 08/02/20 09:00 08/16/20 09:00 Mirtazapine (Remeron) 15 mg QHS PO 08/01/20 21:00 08/03/20 18:01 DC 08/02/20 20:59 Olanzapine (ZyPREXA ZYDIS) 5 mg DAILY PO 08/02/20 09:00 08/03/20 18:01 DC 08/03/20 09:47 Pantoprazole Sodium (Protonix) 40 mg DAILY PO 08/02/20 09:00 08/16/20 09:00 Non-Formulary Medication (Lutein ) 20 mg DAILY PO 08/02/20 09:00 UNV Multivitamins/ Calcium (Thera-M Plus) 1 tab DAILY PO 08/02/20 09:00 08/16/20 09:00 Olanzapine (ZyPREXA ZYDIS) 2.5 mg PRN Q2HR PRN PO PSYCHOSIS 08/01/20 23:30 08/06/20 13:43 DC 08/06/20 09:53 Trazodone HCl (Desyrel) 50 mg PRN QHS PRN PO INSOMNIA, MAY REPEAT X2 08/01/20 23:30 08/10/20 23:09 Melatonin (Melatonin) 3 mg QHS PO 08/02/20 21:00 08/16/20 20:52 Tamsulosin HCl (Flomax) 0.4 mg DAILY PO 08/03/20 09:00 08/03/20 12:33 DC 08/03/20 09:47 Tamsulosin HCl (Flomax) 0.4 mg 1X ONCE PO 08/02/20 21:00 08/02/20 21:01 DC 08/02/20 21:01 Tamsulosin HCl (Flomax) 0.4 mg BID PO 08/03/20 14:00 08/16/20 20:52 Risperidone (RisperDAL) 0.25 mg QHS PO 08/03/20 21:00 08/11/20 18:23 DC 08/10/20 20:07 Trazodone HCl (Desyrel) 100 mg QHS PO 08/05/20 21:00 08/16/20 20:52 Levofloxacin (Levaquin) 250 mg DAILY PO 08/06/20 11:30 08/10/20 23:59 DC 08/10/20 08:38 Olanzapine (ZyPREXA ZYDIS) 5 mg PRN Q2HR PRN PO PSYCHOSIS 08/06/20 13:45 08/15/20 19:46 Lorazepam (Ativan) 1 mg 1X ONCE PO 08/06/20 18:15 08/06/20 18:22 DC Lorazepam (Ativan) 1 mg 1X PRN PO ANXIETY / AGITATION 08/06/20 18:30 08/07/20 00:00 DC 08/06/20 18:52 Lactobacillus Rhamnosus (Culturelle) 1 cap BID PO 08/07/20 21:00 08/16/20 20:53 Sertraline HCl (Zoloft) 25 mg QHS PO 08/10/20 21:00 08/16/20 20:52 Risperidone (RisperDAL) 0.5 mg QHS PO 08/11/20 21:00 08/16/20 20:52 I have reviewed the current psychotropics carefully including drug interactions. Risk benefit ratio favors no change other than as noted in my dictated progress note. Diagnosis: Problems: (1) Psychotic disorder (2) Impulse control disorder, unspecified (3) Vascular dementia with delusions (4) Anxiety disorder, unspecified (5) Vascular dementia with depression (6) Major neurocognitive disorder PRABHAKAR MOLINA MD Aug 16, 2020 21:12
--- NOTE | 2020-08-17 02:12 | NUR ---
Nursing Note The patient was calm, compliant and disorganized. The patient was compliant with his medication and took them whole. The patient was pleasant during interactions with this nurse. The patient was able to answer his name but not the other assessment questions.
[2020-08-17 06:28] VITALS: BP 132/81
--- NOTE | 2020-08-17 08:13 | PDOC ---
Exam Note: Manish Note: This note is a late entry for 08/16/2020 covers elements not covered in my initial note. Subjective: The patient was reviewed on telehealth rounds in the evening of 08/16/2020 with Roselyn ULLOA. Discussed with nursing staff, reviewed the chart. He slept 5-1/2 hours previous night. Overall the patient has been in a wheelchair but called and the nursing staff are trying to get him to ambulate. Physical therapy reinitiated. Catheter was removed but he was not voiding. We will defer to Dr. Traylor. Review of Systems: No CV, , pulmonary, eye, ENT system symptoms on review. Mental Status Exam: The patient is oriented to himself and situation. He is not very verbal, interactive, somewhat dismissive as I met with her. Speech has some latency. Often response is monosyllabic. Abstraction is fair. Computation is impaired. Language function is intact, somewhat confused today than the day before. No suicidal or homicidal ideation. Laboratory Data: Reviewed. Impression: Major neurocognitive disorder Alzheimer vascular with delusion, depression, behavioral disturbance. Anxiety disorder unspecified. Impulse control disorder. Plan: No change from initial note. Reviewed current psychotropics and drug interactions carefully. Assessment: Vital Signs/I&O: Vital Signs Date Time Temp Pulse Resp B/P (MAP) Pulse Ox O2 Delivery O2 Flow Rate FiO2 08/17/20 06:28 97.8 96 18 132/81 (98) 95 Room Air I & O 08/16/20 08/16/20 08/17/20 15:00 23:00 07:00 Intake Total 600 ml 360 ml 120 ml Balance 600 ml 360 ml 120 ml Current Medications: Meds: Current Medications Medications (Trade) Dose Ordered Sig/Sonia Route PRN Reason Start Time Stop Time Status Last Admin Dose Admin Acetaminophen (Tylenol) 650 mg PRN Q6HRS PRN PO MILD PAIN / TEMP > 100.3'F 08/01/20 15:45 08/11/20 12:14 Multi-Ingredient Ointment (Analgesic [place]) 1 olu PRN QID PRN TP MUSCLE PAIN 08/01/20 15:45 08/10/20 08:39 Al Hydroxide/Mg Hydroxide (Mylanta Plus Xs) 15 ml PRN AFTMEALHC PRN PO DYSPEPSIA 08/01/20 15:45 Magnesium Hydroxide (Milk Of Magnesia) 2,400 mg PRN QHS PRN PO CONSTIPATION 08/01/20 15:45 08/06/20 06:06 Fenofibrate (Tricor) 48 mg DAILY PO 08/02/20 09:00 08/16/20 09:00 Fluticasone Propionate (Flonase) 2 spray DAILY NS 08/02/20 09:00 08/16/20 09:00 Metoprolol Succinate (Toprol Xl) 50 mg DAILY PO 08/02/20 09:00 08/16/20 09:00 Mirtazapine (Remeron) 15 mg QHS PO 08/01/20 21:00 08/03/20 18:01 DC 08/02/20 20:59 Olanzapine (ZyPREXA ZYDIS) 5 mg DAILY PO 08/02/20 09:00 08/03/20 18:01 DC 08/03/20 09:47 Pantoprazole Sodium (Protonix) 40 mg DAILY PO 08/02/20 09:00 08/16/20 09:00 Non-Formulary Medication (Lutein ) 20 mg DAILY PO 08/02/20 09:00 UNV Multivitamins/ Calcium (Thera-M Plus) 1 tab DAILY PO 08/02/20 09:00 08/16/20 09:00 Olanzapine (ZyPREXA ZYDIS) 2.5 mg PRN Q2HR PRN PO PSYCHOSIS 08/01/20 23:30 08/06/20 13:43 DC 08/06/20 09:53 Trazodone HCl (Desyrel) 50 mg PRN QHS PRN PO INSOMNIA, MAY REPEAT X2 08/01/20 23:30 08/10/20 23:09 Melatonin (Melatonin) 3 mg QHS PO 08/02/20 21:00 08/16/20 20:52 Tamsulosin HCl (Flomax) 0.4 mg DAILY PO 08/03/20 09:00 08/03/20 12:33 DC 08/03/20 09:47 Tamsulosin HCl (Flomax) 0.4 mg 1X ONCE PO 08/02/20 21:00 08/02/20 21:01 DC 08/02/20 21:01 Tamsulosin HCl (Flomax) 0.4 mg BID PO 08/03/20 14:00 08/16/20 20:52 Risperidone (RisperDAL) 0.25 mg QHS PO 08/03/20 21:00 08/11/20 18:23 DC 08/10/20 20:07 Trazodone HCl (Desyrel) 100 mg QHS PO 08/05/20 21:00 08/16/20 20:52 Levofloxacin (Levaquin) 250 mg DAILY PO 08/06/20 11:30 08/10/20 23:59 DC 08/10/20 08:38 Olanzapine (ZyPREXA ZYDIS) 5 mg PRN Q2HR PRN PO PSYCHOSIS 08/06/20 13:45 08/15/20 19:46 Lorazepam (Ativan) 1 mg 1X ONCE PO 08/06/20 18:15 08/06/20 18:22 DC Lorazepam (Ativan) 1 mg 1X PRN PO ANXIETY / AGITATION 08/06/20 18:30 08/07/20 00:00 DC 08/06/20 18:52 Lactobacillus Rhamnosus (Culturelle) 1 cap BID PO 08/07/20 21:00 08/16/20 20:53 Sertraline HCl (Zoloft) 25 mg QHS PO 08/10/20 21:00 08/16/20 20:52 Risperidone (RisperDAL) 0.5 mg QHS PO 08/11/20 21:00 08/16/20 20:52 I have reviewed the current psychotropics carefully including drug interactions. Risk benefit ratio favors no change other than as noted in my dictated progress note. Diagnosis: Problems: (1) Psychotic disorder (2) Impulse control disorder, unspecified (3) Vascular dementia with delusions (4) Anxiety disorder, unspecified (5) Vascular dementia with depression (6) Major neurocognitive disorder PRABHAKAR MOLINA MD Aug 17, 2020 08:13
[2020-08-17] MEDS: FENOFIBRATE NANOCRYSTALLIZED 48 MG TABLET PO SCH (09:00)
[2020-08-17] MEDS: LACTOBACILLUS RHAMNOSUS GG 1 CAPSULE. PO SCH ×2 (09:03→19:30)
[2020-08-17] MEDS: MULTIVITAMIN with MINERAL TABLET. PO SCH (09:03)
[2020-08-17] MEDS: PANTOPRAZOLE 40 MG TABLET. PO SCH (09:03)
[2020-08-17] MEDS: METOPROLOL SUCC 24HR ER 50 MG TAB.ER.24H. PO SCH (09:03)
[2020-08-17] MEDS: FLUTICASONE 50MCG/NASAL SPRAY 16GM BOTTLE. NS SCH (09:03)
[2020-08-17] MEDS: TAMSULOSIN 0.4 MG CAP.ER.24H. PO SCH ×2 (09:03→19:31)
--- NOTE | 2020-08-17 11:32 | NUR ---
Patient in room sitting on edge of bed at time of assessment. Patient is calm and cooperative and takes medications whole with no problems. Patient Still has rash on back an face. Spoke to Dr Mendez and he saw the patient with me; wrote script for Folliculitis, Kelfex 500mg TID X7D #21. Sent to pharmacy for patient to begin tonight. Patient still on voiding protocol. Has not voiding on own since yesterday and he was straight cathed this AM. We will continue to straight cath patient and try to avoid placing another Hernandez. Per Dr mendez continue to monitor and straight cath.
[2020-08-17] MEDS: CEPHALEXIN 250 MG CAPSULE PO SCH ×2 (13:18→19:33)
--- NOTE | 2020-08-17 13:48 | NUR ---
WEEKLY ACTIVITY THERAPY NOTE Date of Admission: 08/01 Date of AT Assessment: 08/04 Precipitating behaviors that initiated intake and admission: Patient was reported to be aggressive towards his , noncompliant with medications. Goal aimed:increase stress management/relaxation and socialization skills Initial Goal: Pt will participate in at least one individual or group Activity Therapy session before discharge. Goal changed 08/10: Pt. will participate in at least three Activity Therapy groups before discharge Weekly progress towards goal: 07/30 Group participation level: 1 mod (08/10:exercises and trivia) Weekly highlights: exercises with group last Behaviors observed: - Pt came in during the middle of group. Pt participated in some of the exercises.Pt listened along to some of the trivia and answered questions when prompted. Pt was having a conversation with another pt across the room which became a bit distracting.Pt laughed a couple of times.Pt was pleasant with peers and staff. Plan: no change to goal Beneficial adaptations: gross motor activities
[2020-08-17 16:21] VITALS: BP 102/66
[2020-08-17] MEDS: SERTRALINE 25 MG TABLET. PO SCH (19:30)
[2020-08-17] MEDS: traZODone 100 MG TABLET. PO SCH (19:30)
[2020-08-17] MEDS: risperiDONE 0.5 MG TABLET. PO SCH (19:31)
[2020-08-17] MEDS: MELATONIN 3 MG TABLET PO SCH (19:31)
--- NOTE | 2020-08-17 21:07 | PDOC ---
Exam Note: Manish Note: Please also refer to the separate dictated note~for this date of service dictated separately.~Patient seen individually. Discussed the patient with Nursing staff reviewed the chart.~Reviewed interim history and current functioning. Reviewed vital signs,~Labs/ Radiology~and current medications noted below. Continue current treatment with the changes noted in the dictated addendum note Assessment: Vital Signs/I&O: Vital Signs Date Time Temp Pulse Resp B/P (MAP) Pulse Ox O2 Delivery O2 Flow Rate FiO2 08/17/20 16:21 98.1 99 20 102/66 (78) 96 08/17/20 06:28 Room Air I & O 08/16/20 08/16/20 08/17/20 15:00 23:00 07:00 Intake Total 600 ml 360 ml 120 ml Balance 600 ml 360 ml 120 ml Current Medications: Meds: Current Medications Medications (Trade) Dose Ordered Sig/Sonia Route PRN Reason Start Time Stop Time Status Last Admin Dose Admin Acetaminophen (Tylenol) 650 mg PRN Q6HRS PRN PO MILD PAIN / TEMP > 100.3'F 08/01/20 15:45 08/11/20 12:14 Multi-Ingredient Ointment (Analgesic [place]) 1 olu PRN QID PRN TP MUSCLE PAIN 08/01/20 15:45 08/10/20 08:39 Al Hydroxide/Mg Hydroxide (Mylanta Plus Xs) 15 ml PRN AFTMEALHC PRN PO DYSPEPSIA 08/01/20 15:45 Magnesium Hydroxide (Milk Of Magnesia) 2,400 mg PRN QHS PRN PO CONSTIPATION 08/01/20 15:45 08/06/20 06:06 Fenofibrate (Tricor) 48 mg DAILY PO 08/02/20 09:00 08/17/20 09:00 Fluticasone Propionate (Flonase) 2 spray DAILY NS 08/02/20 09:00 08/17/20 09:03 Metoprolol Succinate (Toprol Xl) 50 mg DAILY PO 08/02/20 09:00 08/17/20 09:03 Mirtazapine (Remeron) 15 mg QHS PO 08/01/20 21:00 08/03/20 18:01 DC 08/02/20 20:59 Olanzapine (ZyPREXA ZYDIS) 5 mg DAILY PO 08/02/20 09:00 08/03/20 18:01 DC 08/03/20 09:47 Pantoprazole Sodium (Protonix) 40 mg DAILY PO 08/02/20 09:00 08/17/20 09:03 Non-Formulary Medication (Lutein ) 20 mg DAILY PO 08/02/20 09:00 UNV Multivitamins/ Calcium (Thera-M Plus) 1 tab DAILY PO 08/02/20 09:00 08/17/20 09:03 Olanzapine (ZyPREXA ZYDIS) 2.5 mg PRN Q2HR PRN PO PSYCHOSIS 08/01/20 23:30 08/06/20 13:43 DC 08/06/20 09:53 Trazodone HCl (Desyrel) 50 mg PRN QHS PRN PO INSOMNIA, MAY REPEAT X2 08/01/20 23:30 08/10/20 23:09 Melatonin (Melatonin) 3 mg QHS PO 08/02/20 21:00 08/17/20 19:31 Tamsulosin HCl (Flomax) 0.4 mg DAILY PO 08/03/20 09:00 08/03/20 12:33 DC 08/03/20 09:47 Tamsulosin HCl (Flomax) 0.4 mg 1X ONCE PO 08/02/20 21:00 08/02/20 21:01 DC 08/02/20 21:01 Tamsulosin HCl (Flomax) 0.4 mg BID PO 08/03/20 14:00 08/17/20 19:31 Risperidone (RisperDAL) 0.25 mg QHS PO 08/03/20 21:00 08/11/20 18:23 DC 08/10/20 20:07 Trazodone HCl (Desyrel) 100 mg QHS PO 08/05/20 21:00 08/17/20 19:30 Levofloxacin (Levaquin) 250 mg DAILY PO 08/06/20 11:30 08/10/20 23:59 DC 08/10/20 08:38 Olanzapine (ZyPREXA ZYDIS) 5 mg PRN Q2HR PRN PO PSYCHOSIS 08/06/20 13:45 08/17/20 19:31 Lorazepam (Ativan) 1 mg 1X ONCE PO 08/06/20 18:15 08/06/20 18:22 DC Lorazepam (Ativan) 1 mg 1X PRN PO ANXIETY / AGITATION 08/06/20 18:30 08/07/20 00:00 DC 08/06/20 18:52 Lactobacillus Rhamnosus (Culturelle) 1 cap BID PO 08/07/20 21:00 08/17/20 19:30 Sertraline HCl (Zoloft) 25 mg QHS PO 08/10/20 21:00 08/17/20 19:30 Risperidone (RisperDAL) 0.5 mg QHS PO 08/11/20 21:00 08/17/20 19:31 Cephalexin HCl (Keflex) 500 mg TID PO 08/17/20 14:00 08/24/20 13:59 08/17/20 19:33 Current Medications Medications (Trade) Dose Ordered Sig/Sonia Route PRN Reason Start Time Stop Time Status Last Admin Dose Admin Cephalexin HCl (Keflex) 500 mg TID PO 08/17/20 14:00 08/24/20 13:59 08/17/20 19:33 I have reviewed the current psychotropics carefully including drug interactions. Risk benefit ratio favors no change other than as noted in my dictated progress note. Diagnosis: Problems: (1) Psychotic disorder (2) Impulse control disorder, unspecified (3) Vascular dementia with delusions (4) Anxiety disorder, unspecified (5) Vascular dementia with depression (6) Major neurocognitive disorder PRABHAKAR MOLINA MD Aug 17, 2020 21:06
[2020-08-18] MEDS: traZODone 50 MG TABLET. PO PRN (00:09)
[2020-08-18 06:17] VITALS: BP 121/77
[2020-08-18] MEDS: FENOFIBRATE NANOCRYSTALLIZED 48 MG TABLET PO SCH (08:28)
[2020-08-18] MEDS: LACTOBACILLUS RHAMNOSUS GG 1 CAPSULE. PO SCH ×2 (08:28→20:40)
[2020-08-18] MEDS: TAMSULOSIN 0.4 MG CAP.ER.24H. PO SCH ×2 (08:29→20:41)
[2020-08-18] MEDS: PANTOPRAZOLE 40 MG TABLET. PO SCH (08:30)
[2020-08-18] MEDS: MULTIVITAMIN with MINERAL TABLET. PO SCH (08:30)
[2020-08-18] MEDS: METOPROLOL SUCC 24HR ER 50 MG TAB.ER.24H. PO SCH (08:30)
[2020-08-18] MEDS: CEPHALEXIN 250 MG CAPSULE PO SCH ×3 (08:30→20:42)
--- NOTE | 2020-08-18 08:30 | PDOC ---
Exam Note: Manish Note: This note is a late entry for 08/17/2020 covers elements not covered in my initial note. Subjective: The patient was reviewed on telehealth rounds in the morning of 08/17/2020 for a treatment team meeting with Verna Prakash, Tiarra Pendleton and Analisa (social sciences instructor), Lashay Hyatt, activity therapy and Roselyn ULLOA. Discussed with nursing staff, reviewed the chart. He slept 5-1/2 hours previous night. The patient remains confused, trying to change him from a wheelchair but to a walker since the plan for him to return home with his . He did not void previous night and we will defer to Dr. Traylor. He did well this evening but somewhat paranoid as I met with him. Review of Systems: Ambulation impaired. No CV, , pulmonary, eye, ENT system symptoms on review. Reliability poor. Mental Status Exam: The patient is oriented to himself and situation. He is somewhat dismissive, not wanting to talk to me much. Speech has some latency. Often response is monosyllabic. Abstraction is fair. Computation is impaired. Language function is intact. No suicidal or homicidal ideation. Laboratory Data: Reviewed. Impression: Major neurocognitive disorder Alzheimer vascular with delusion, depression, behavioral disturbance. Anxiety disorder unspecified. Impulse control disorder. Plan: No change from initial note. Assessment: Vital Signs/I&O: Vital Signs Date Time Temp Pulse Resp B/P (MAP) Pulse Ox O2 Delivery O2 Flow Rate FiO2 08/18/20 06:17 98.4 93 16 121/77 (92) 97 08/17/20 06:28 Room Air l I & O 08/17/20 08/17/20 08/18/20 14:59 22:59 06:59 Intake Total 360 ml 240 ml 100 ml Output Total 450 ml Balance -90 ml 240 ml 100 ml Current Medications: Meds: Current Medications Medications (Trade) Dose Ordered Sig/Sonia Route PRN Reason Start Time Stop Time Status Last Admin Dose Admin Acetaminophen (Tylenol) 650 mg PRN Q6HRS PRN PO MILD PAIN / TEMP > 100.3'F 08/01/20 15:45 08/11/20 12:14 Multi-Ingredient Ointment (Analgesic [place]) 1 olu PRN QID PRN TP MUSCLE PAIN 08/01/20 15:45 08/10/20 08:39 Al Hydroxide/Mg Hydroxide (Mylanta Plus Xs) 15 ml PRN AFTMEALHC PRN PO DYSPEPSIA 08/01/20 15:45 Magnesium Hydroxide (Milk Of Magnesia) 2,400 mg PRN QHS PRN PO CONSTIPATION 08/01/20 15:45 08/06/20 06:06 Fenofibrate (Tricor) 48 mg DAILY PO 08/02/20 09:00 08/17/20 09:00 Fluticasone Propionate (Flonase) 2 spray DAILY NS 08/02/20 09:00 08/17/20 09:03 Metoprolol Succinate (Toprol Xl) 50 mg DAILY PO 08/02/20 09:00 08/17/20 09:03 Mirtazapine (Remeron) 15 mg QHS PO 08/01/20 21:00 08/03/20 18:01 DC 08/02/20 20:59 Olanzapine (ZyPREXA ZYDIS) 5 mg DAILY PO 08/02/20 09:00 08/03/20 18:01 DC 08/03/20 09:47 Pantoprazole Sodium (Protonix) 40 mg DAILY PO 08/02/20 09:00 08/17/20 09:03 Non-Formulary Medication (Lutein ) 20 mg DAILY PO 08/02/20 09:00 UNV Multivitamins/ Calcium (Thera-M Plus) 1 tab DAILY PO 08/02/20 09:00 08/17/20 09:03 Olanzapine (ZyPREXA ZYDIS) 2.5 mg PRN Q2HR PRN PO PSYCHOSIS 08/01/20 23:30 08/06/20 13:43 DC 08/06/20 09:53 Trazodone HCl (Desyrel) 50 mg PRN QHS PRN PO INSOMNIA, MAY REPEAT X2 08/01/20 23:30 08/18/20 00:09 Melatonin (Melatonin) 3 mg QHS PO 08/02/20 21:00 08/17/20 19:31 Tamsulosin HCl (Flomax) 0.4 mg DAILY PO 08/03/20 09:00 08/03/20 12:33 DC 08/03/20 09:47 Tamsulosin HCl (Flomax) 0.4 mg 1X ONCE PO 08/02/20 21:00 08/02/20 21:01 DC 08/02/20 21:01 Tamsulosin HCl (Flomax) 0.4 mg BID PO 08/03/20 14:00 08/17/20 19:31 Risperidone (RisperDAL) 0.25 mg QHS PO 08/03/20 21:00 08/11/20 18:23 DC 08/10/20 20:07 Trazodone HCl (Desyrel) 100 mg QHS PO 08/05/20 21:00 08/17/20 19:30 Levofloxacin (Levaquin) 250 mg DAILY PO 08/06/20 11:30 08/10/20 23:59 DC 08/10/20 08:38 Olanzapine (ZyPREXA ZYDIS) 5 mg PRN Q2HR PRN PO PSYCHOSIS 08/06/20 13:45 08/17/20 19:31 Lorazepam (Ativan) 1 mg 1X ONCE PO 08/06/20 18:15 08/06/20 18:22 DC Lorazepam (Ativan) 1 mg 1X PRN PO ANXIETY / AGITATION 08/06/20 18:30 08/07/20 00:00 DC 08/06/20 18:52 Lactobacillus Rhamnosus (Culturelle) 1 cap BID PO 08/07/20 21:00 08/17/20 19:30 Sertraline HCl (Zoloft) 25 mg QHS PO 08/10/20 21:00 08/17/20 19:30 Risperidone (RisperDAL) 0.5 mg QHS PO 08/11/20 21:00 08/17/20 19:31 Cephalexin HCl (Keflex) 500 mg TID PO 08/17/20 14:00 08/24/20 13:59 08/17/20 19:33 Current Medications Medications (Trade) Dose Ordered Sig/Sonia Route PRN Reason Start Time Stop Time Status Last Admin Dose Admin Cephalexin HCl (Keflex) 500 mg TID PO 08/17/20 14:00 08/24/20 13:59 08/17/20 19:33 I have reviewed the current psychotropics carefully including drug interactions. Risk benefit ratio favors no change other than as noted in my dictated progress note. Diagnosis: Problems: (1) Psychotic disorder (2) Impulse control disorder, unspecified (3) Vascular dementia with delusions (4) Anxiety disorder, unspecified (5) Vascular dementia with depression (6) Major neurocognitive disorder PRABHAKAR MOLINA MD Aug 18, 2020 08:30
[2020-08-18] MEDS: FLUTICASONE 50MCG/NASAL SPRAY 16GM BOTTLE. NS SCH (08:34)
[2020-08-18 16:54] VITALS: BP 133/80
[2020-08-18] MEDS: risperiDONE 0.5 MG TABLET. PO SCH (20:41)
[2020-08-18] MEDS: traZODone 100 MG TABLET. PO SCH (20:41)
[2020-08-18] MEDS: SERTRALINE 25 MG TABLET. PO SCH (20:41)
[2020-08-18] MEDS: MELATONIN 3 MG TABLET PO SCH (20:41)
--- NOTE | 2020-08-18 21:16 | PDOC ---
Exam Note: Manish Note: Please also refer to the separate dictated note~for this date of service dictated separately.~Patient seen individually. Discussed the patient with Nursing staff reviewed the chart.~Reviewed interim history and current functioning. Reviewed vital signs,~Labs/ Radiology~and current medications noted below. Continue current treatment with the changes noted in the dictated addendum note Assessment: Vital Signs/I&O: Vital Signs Date Time Temp Pulse Resp B/P (MAP) Pulse Ox O2 Delivery O2 Flow Rate FiO2 08/18/20 16:54 98.5 92 20 133/80 (97) 94 Room Air I & O 08/17/20 08/17/20 08/18/20 15:00 23:00 07:00 Intake Total 360 ml 240 ml 100 ml Output Total 450 ml Balance -90 ml 240 ml 100 ml Current Medications: Meds: Current Medications Medications (Trade) Dose Ordered Sig/Sonia Route PRN Reason Start Time Stop Time Status Last Admin Dose Admin Acetaminophen (Tylenol) 650 mg PRN Q6HRS PRN PO MILD PAIN / TEMP > 100.3'F 08/01/20 15:45 08/11/20 12:14 Multi-Ingredient Ointment (Analgesic [place]) 1 olu PRN QID PRN TP MUSCLE PAIN 08/01/20 15:45 08/10/20 08:39 Al Hydroxide/Mg Hydroxide (Mylanta Plus Xs) 15 ml PRN AFTMEALHC PRN PO DYSPEPSIA 08/01/20 15:45 Magnesium Hydroxide (Milk Of Magnesia) 2,400 mg PRN QHS PRN PO CONSTIPATION 08/01/20 15:45 08/06/20 06:06 Fenofibrate (Tricor) 48 mg DAILY PO 08/02/20 09:00 08/18/20 08:28 Fluticasone Propionate (Flonase) 2 spray DAILY NS 08/02/20 09:00 08/17/20 09:03 Metoprolol Succinate (Toprol Xl) 50 mg DAILY PO 08/02/20 09:00 08/18/20 08:30 Mirtazapine (Remeron) 15 mg QHS PO 08/01/20 21:00 08/03/20 18:01 DC 08/02/20 20:59 Olanzapine (ZyPREXA ZYDIS) 5 mg DAILY PO 08/02/20 09:00 08/03/20 18:01 DC 08/03/20 09:47 Pantoprazole Sodium (Protonix) 40 mg DAILY PO 08/02/20 09:00 08/18/20 08:30 Non-Formulary Medication (Lutein ) 20 mg DAILY PO 08/02/20 09:00 UNV Multivitamins/ Calcium (Thera-M Plus) 1 tab DAILY PO 08/02/20 09:00 08/18/20 08:30 Olanzapine (ZyPREXA ZYDIS) 2.5 mg PRN Q2HR PRN PO PSYCHOSIS 08/01/20 23:30 08/06/20 13:43 DC 08/06/20 09:53 Trazodone HCl (Desyrel) 50 mg PRN QHS PRN PO INSOMNIA, MAY REPEAT X2 08/01/20 23:30 08/18/20 00:09 Melatonin (Melatonin) 3 mg QHS PO 08/02/20 21:00 08/18/20 20:41 Tamsulosin HCl (Flomax) 0.4 mg DAILY PO 08/03/20 09:00 08/03/20 12:33 DC 08/03/20 09:47 Tamsulosin HCl (Flomax) 0.4 mg 1X ONCE PO 08/02/20 21:00 08/02/20 21:01 DC 08/02/20 21:01 Tamsulosin HCl (Flomax) 0.4 mg BID PO 08/03/20 14:00 08/18/20 20:41 Risperidone (RisperDAL) 0.25 mg QHS PO 08/03/20 21:00 08/11/20 18:23 DC 08/10/20 20:07 Trazodone HCl (Desyrel) 100 mg QHS PO 08/05/20 21:00 08/18/20 20:41 Levofloxacin (Levaquin) 250 mg DAILY PO 08/06/20 11:30 08/10/20 23:59 DC 08/10/20 08:38 Olanzapine (ZyPREXA ZYDIS) 5 mg PRN Q2HR PRN PO PSYCHOSIS 08/06/20 13:45 08/17/20 19:31 Lorazepam (Ativan) 1 mg 1X ONCE PO 08/06/20 18:15 08/06/20 18:22 DC Lorazepam (Ativan) 1 mg 1X PRN PO ANXIETY / AGITATION 08/06/20 18:30 08/07/20 00:00 DC 08/06/20 18:52 Lactobacillus Rhamnosus (Culturelle) 1 cap BID PO 08/07/20 21:00 08/18/20 20:40 Sertraline HCl (Zoloft) 25 mg QHS PO 08/10/20 21:00 08/18/20 20:41 Risperidone (RisperDAL) 0.5 mg QHS PO 08/11/20 21:00 08/18/20 20:41 Cephalexin HCl (Keflex) 500 mg TID PO 08/17/20 14:00 08/24/20 13:59 08/18/20 20:42 I have reviewed the current psychotropics carefully including drug interactions. Risk benefit ratio favors no change other than as noted in my dictated progress note. Diagnosis: Problems: (1) Psychotic disorder (2) Impulse control disorder, unspecified (3) Vascular dementia with delusions (4) Anxiety disorder, unspecified (5) Vascular dementia with depression (6) Major neurocognitive disorder PRABHAKAR MOLINA MD Aug 18, 2020 21:16
--- NOTE | 2020-08-18 22:00 | NUR ---
Patient is in his room on assumption of care, awake in bed. Disorganized, slow. Compliant with assessments and medications whole. No agitation. Denies any pain or discomfort. Patient appears to be sleeping at present time. Will continue to monitor.
--- NOTE | 2020-08-19 05:55 | NUR ---
Patient bladder scanned at 0515, showing 825mL of urine retained in bladder. He was scheduled for a shower, so he was showered first with the hope that the running water would stimulate the urge to urinate. That was unsuccessful. Straight cath performed with staff assist of 2. Patient irritable with procedure, yelling out in pain. 800mL of dark claudia urine drained successfully. Post cath bladder scan showed residual of 57mL. Will continue to monitor and report to oncoming staff.
[2020-08-19 06:18] VITALS: BP 116/75
--- NOTE | 2020-08-19 07:59 | PDOC ---
Exam Note: Manish Note: This note is a late entry for 08/18/2020 covers elements not covered in my initial note. Subjective: The patient was reviewed on telehealth rounds in the evening of 08/18/2020 with Roselyn ULLOA. Discussed with nursing staff, reviewed the chart. He slept 6-1/4 hours previous night. The patient has been confused, had a telephone conversation with his daughter and did better. is concerned about the patient being in wheelchair. Activity therapy and physical therapy staff are encouraging ambulating on his own. He just received trazodone h.s. x1. Voided x1 and has had straight caths in the evening. We will defer to Dr. Traylor. Review of Systems: No CV, , pulmonary, eye, ENT system symptoms on review. Reliability poor. Mental Status Exam: The patient is oriented to himself. Insight and judgment, recent and remote memory, attention and concentration, fund of knowledge is poor consistent with his diagnosis. Laboratory Data: Reviewed. Impression: Major neurocognitive disorder Alzheimer vascular with delusion, depression, behavioral disturbance. Anxiety disorder unspecified. Impulse control disorder. Plan: No change from initial note. Assessment: Vital Signs/I&O: Vital Signs Date Time Temp Pulse Resp B/P (MAP) Pulse Ox O2 Delivery O2 Flow Rate FiO2 08/19/20 06:18 98.5 85 20 116/75 (89) 95 08/18/20 16:54 Room Air I & O 08/18/20 08/18/20 08/19/20 15:00 23:00 07:00 Intake Total 240 ml 480 ml Output Total 450 ml Balance -210 ml 480 ml Current Medications: Meds: Current Medications Medications (Trade) Dose Ordered Sig/Sonia Route PRN Reason Start Time Stop Time Status Last Admin Dose Admin Acetaminophen (Tylenol) 650 mg PRN Q6HRS PRN PO MILD PAIN / TEMP > 100.3'F 08/01/20 15:45 08/11/20 12:14 Multi-Ingredient Ointment (Analgesic [place]) 1 olu PRN QID PRN TP MUSCLE PAIN 08/01/20 15:45 08/10/20 08:39 Al Hydroxide/Mg Hydroxide (Mylanta Plus Xs) 15 ml PRN AFTMEALHC PRN PO DYSPEPSIA 08/01/20 15:45 Magnesium Hydroxide (Milk Of Magnesia) 2,400 mg PRN QHS PRN PO CONSTIPATION 08/01/20 15:45 08/06/20 06:06 Fenofibrate (Tricor) 48 mg DAILY PO 08/02/20 09:00 08/18/20 08:28 Fluticasone Propionate (Flonase) 2 spray DAILY NS 08/02/20 09:00 08/17/20 09:03 Metoprolol Succinate (Toprol Xl) 50 mg DAILY PO 08/02/20 09:00 08/18/20 08:30 Mirtazapine (Remeron) 15 mg QHS PO 08/01/20 21:00 08/03/20 18:01 DC 08/02/20 20:59 Olanzapine (ZyPREXA ZYDIS) 5 mg DAILY PO 08/02/20 09:00 08/03/20 18:01 DC 08/03/20 09:47 Pantoprazole Sodium (Protonix) 40 mg DAILY PO 08/02/20 09:00 08/18/20 08:30 Non-Formulary Medication (Lutein ) 20 mg DAILY PO 08/02/20 09:00 UNV Multivitamins/ Calcium (Thera-M Plus) 1 tab DAILY PO 08/02/20 09:00 08/18/20 08:30 Olanzapine (ZyPREXA ZYDIS) 2.5 mg PRN Q2HR PRN PO PSYCHOSIS 08/01/20 23:30 08/06/20 13:43 DC 08/06/20 09:53 Trazodone HCl (Desyrel) 50 mg PRN QHS PRN PO INSOMNIA, MAY REPEAT X2 08/01/20 23:30 08/18/20 00:09 Melatonin (Melatonin) 3 mg QHS PO 08/02/20 21:00 08/18/20 20:41 Tamsulosin HCl (Flomax) 0.4 mg DAILY PO 08/03/20 09:00 08/03/20 12:33 DC 08/03/20 09:47 Tamsulosin HCl (Flomax) 0.4 mg 1X ONCE PO 08/02/20 21:00 08/02/20 21:01 DC 08/02/20 21:01 Tamsulosin HCl (Flomax) 0.4 mg BID PO 08/03/20 14:00 08/18/20 20:41 Risperidone (RisperDAL) 0.25 mg QHS PO 08/03/20 21:00 08/11/20 18:23 DC 08/10/20 20:07 Trazodone HCl (Desyrel) 100 mg QHS PO 08/05/20 21:00 08/18/20 20:41 Levofloxacin (Levaquin) 250 mg DAILY PO 08/06/20 11:30 08/10/20 23:59 DC 08/10/20 08:38 Olanzapine (ZyPREXA ZYDIS) 5 mg PRN Q2HR PRN PO PSYCHOSIS 08/06/20 13:45 08/17/20 19:31 Lorazepam (Ativan) 1 mg 1X ONCE PO 08/06/20 18:15 08/06/20 18:22 DC Lorazepam (Ativan) 1 mg 1X PRN PO ANXIETY / AGITATION 08/06/20 18:30 08/07/20 00:00 DC 08/06/20 18:52 Lactobacillus Rhamnosus (Culturelle) 1 cap BID PO 08/07/20 21:00 08/18/20 20:40 Sertraline HCl (Zoloft) 25 mg QHS PO 08/10/20 21:00 08/18/20 20:41 Risperidone (RisperDAL) 0.5 mg QHS PO 08/11/20 21:00 08/18/20 20:41 Cephalexin HCl (Keflex) 500 mg TID PO 08/17/20 14:00 08/24/20 13:59 08/18/20 20:42 I have reviewed the current psychotropics carefully including drug interactions. Risk benefit ratio favors no change other than as noted in my dictated progress note. Diagnosis: Problems: (1) Psychotic disorder (2) Impulse control disorder, unspecified (3) Vascular dementia with delusions (4) Anxiety disorder, unspecified (5) Vascular dementia with depression (6) Major neurocognitive disorder PRABHAKAR MOLINA MD Aug 19, 2020 07:59
[2020-08-19] MEDS: PANTOPRAZOLE 40 MG TABLET. PO SCH (09:45)
[2020-08-19] MEDS: METOPROLOL SUCC 24HR ER 50 MG TAB.ER.24H. PO SCH (09:45)
[2020-08-19] MEDS: FENOFIBRATE NANOCRYSTALLIZED 48 MG TABLET PO SCH (09:46)
[2020-08-19] MEDS: CEPHALEXIN 250 MG CAPSULE PO SCH ×3 (09:46→20:02)
[2020-08-19] MEDS: MULTIVITAMIN with MINERAL TABLET. PO SCH (09:46)
[2020-08-19] MEDS: TAMSULOSIN 0.4 MG CAP.ER.24H. PO SCH ×2 (09:46→20:01)
[2020-08-19] MEDS: LACTOBACILLUS RHAMNOSUS GG 1 CAPSULE. PO SCH ×2 (09:46→20:00)
[2020-08-19] MEDS: FLUTICASONE 50MCG/NASAL SPRAY 16GM BOTTLE. NS SCH (09:47)
--- NOTE | 2020-08-19 14:31 | NUR ---
Pt was calm and appropriate during the speech therapist early intervention. Med complaint, polite, complimenting towards staff. He has no c/o SI/HI/VH/AH/pain and is absent of behaviors that would indicate such. At 1400 staff attempted to perform a blader scan, and at that point pt became physically and verbally aggressive to staff. Even attempts to re-fasten his briefs in an effort to maintain his dignity and modesty was met with physical and verbal aggression. Attempts to explain purpose of staff contact with pt were unsuccessful. Bladder scan was ultimately successful and showed pt is currently retaining 442 mL of urine. Currently pt is back asleep and a straight cath will be attempted after he wakes.
[2020-08-19 16:13] VITALS: BP 119/77
[2020-08-19] MEDS: risperiDONE 0.25 MG TABLET. PO SCH (17:22)
--- NOTE | 2020-08-19 18:43 | NUR ---
post void bladder scan 176mls
[2020-08-19] MEDS: traZODone 100 MG TABLET. PO SCH (20:01)
[2020-08-19] MEDS: MELATONIN 3 MG TABLET PO SCH (20:02)
[2020-08-19] MEDS: SERTRALINE 25 MG TABLET. PO SCH (20:03)
--- NOTE | 2020-08-19 21:02 | PDOC ---
Exam Note: Manish Note: Please also refer to the separate dictated note~for this date of service dictated separately.~Patient seen individually. Discussed the patient with Nursing staff reviewed the chart.~Reviewed interim history and current functioning. Reviewed vital signs,~Labs/ Radiology~and current medications noted below. Continue current treatment with the changes noted in the dictated addendum note Assessment: Vital Signs/I&O: Vital Signs Date Time Temp Pulse Resp B/P (MAP) Pulse Ox O2 Delivery O2 Flow Rate FiO2 08/19/20 16:13 97.4 83 20 119/77 (91) 97 08/18/20 16:54 Room Air I & O 08/18/20 08/18/20 08/19/20 15:00 23:00 07:00 Intake Total 240 ml 480 ml Output Total 450 ml Balance -210 ml 480 ml Current Medications: Meds: Current Medications Medications (Trade) Dose Ordered Sig/Sonia Route PRN Reason Start Time Stop Time Status Last Admin Dose Admin Acetaminophen (Tylenol) 650 mg PRN Q6HRS PRN PO MILD PAIN / TEMP > 100.3'F 08/01/20 15:45 08/11/20 12:14 Multi-Ingredient Ointment (Analgesic [place]) 1 oul PRN QID PRN TP MUSCLE PAIN 08/01/20 15:45 08/10/20 08:39 Al Hydroxide/Mg Hydroxide (Mylanta Plus Xs) 15 ml PRN AFTMEALHC PRN PO DYSPEPSIA 08/01/20 15:45 Magnesium Hydroxide (Milk Of Magnesia) 2,400 mg PRN QHS PRN PO CONSTIPATION 08/01/20 15:45 08/06/20 06:06 Fenofibrate (Tricor) 48 mg DAILY PO 08/02/20 09:00 08/19/20 09:46 Fluticasone Propionate (Flonase) 2 spray DAILY NS 08/02/20 09:00 08/19/20 09:47 Metoprolol Succinate (Toprol Xl) 50 mg DAILY PO 08/02/20 09:00 08/19/20 09:45 Mirtazapine (Remeron) 15 mg QHS PO 08/01/20 21:00 08/03/20 18:01 DC 08/02/20 20:59 Olanzapine (ZyPREXA ZYDIS) 5 mg DAILY PO 08/02/20 09:00 08/03/20 18:01 DC 08/03/20 09:47 Pantoprazole Sodium (Protonix) 40 mg DAILY PO 08/02/20 09:00 08/19/20 09:45 Non-Formulary Medication (Lutein ) 20 mg DAILY PO 08/02/20 09:00 UNV Multivitamins/ Calcium (Thera-M Plus) 1 tab DAILY PO 08/02/20 09:00 08/19/20 09:46 Olanzapine (ZyPREXA ZYDIS) 2.5 mg PRN Q2HR PRN PO PSYCHOSIS 08/01/20 23:30 08/06/20 13:43 DC 08/06/20 09:53 Trazodone HCl (Desyrel) 50 mg PRN QHS PRN PO INSOMNIA, MAY REPEAT X2 08/01/20 23:30 08/18/20 00:09 Melatonin (Melatonin) 3 mg QHS PO 08/02/20 21:00 08/19/20 20:02 Tamsulosin HCl (Flomax) 0.4 mg DAILY PO 08/03/20 09:00 08/03/20 12:33 DC 08/03/20 09:47 Tamsulosin HCl (Flomax) 0.4 mg 1X ONCE PO 08/02/20 21:00 08/02/20 21:01 DC 08/02/20 21:01 Tamsulosin HCl (Flomax) 0.4 mg BID PO 08/03/20 14:00 08/19/20 20:01 Risperidone (RisperDAL) 0.25 mg QHS PO 08/03/20 21:00 08/11/20 18:23 DC 08/10/20 20:07 Trazodone HCl (Desyrel) 100 mg QHS PO 08/05/20 21:00 08/19/20 20:01 Levofloxacin (Levaquin) 250 mg DAILY PO 08/06/20 11:30 08/10/20 23:59 DC 08/10/20 08:38 Olanzapine (ZyPREXA ZYDIS) 5 mg PRN Q2HR PRN PO PSYCHOSIS 08/06/20 13:45 08/17/20 19:31 Lorazepam (Ativan) 1 mg 1X ONCE PO 08/06/20 18:15 08/06/20 18:22 DC Lorazepam (Ativan) 1 mg 1X PRN PO ANXIETY / AGITATION 08/06/20 18:30 08/07/20 00:00 DC 08/06/20 18:52 Lactobacillus Rhamnosus (Culturelle) 1 cap BID PO 08/07/20 21:00 08/19/20 20:00 Sertraline HCl (Zoloft) 25 mg QHS PO 08/10/20 21:00 08/19/20 17:06 DC 08/18/20 20:41 Risperidone (RisperDAL) 0.5 mg QHS PO 08/11/20 21:00 08/19/20 17:06 DC 08/18/20 20:41 Cephalexin HCl (Keflex) 500 mg TID PO 08/17/20 14:00 08/24/20 13:59 08/19/20 20:02 Sertraline HCl (Zoloft) 50 mg QHS PO 08/19/20 21:00 08/19/20 20:03 Risperidone (RisperDAL) 0.25 mg 0900,1300,1700 PO 08/20/20 09:00 08/19/20 17:11 DC Risperidone (RisperDAL) 0.25 mg 0900,1300,1700 PO 08/19/20 17:15 08/19/20 17:22 Current Medications Medications (Trade) Dose Ordered Sig/Sonia Route PRN Reason Start Time Stop Time Status Last Admin Dose Admin Sertraline HCl (Zoloft) 50 mg QHS PO 08/19/20 21:00 08/19/20 20:03 Risperidone (RisperDAL) 0.25 mg 0900,1300,1700 PO 08/19/20 17:15 08/19/20 17:22 I have reviewed the current psychotropics carefully including drug interactions. Risk benefit ratio favors no change other than as noted in my dictated progress note. Diagnosis: Problems: (1) Psychotic disorder (2) Impulse control disorder, unspecified (3) Vascular dementia with delusions (4) Anxiety disorder, unspecified (5) Vascular dementia with depression (6) Major neurocognitive disorder PRABHAKAR MOLINA MD Aug 19, 2020 21:02
--- NOTE | 2020-08-20 06:15 | NUR ---
Patient incontinent of an extra large amount of urine around midnight, requiring a full bed change. During morning rounds, this nurse went to patient's room to bladder scan him. He had been incontinent of a large amount of urine, again requiring a bed change. Bladder scan performed at that time to ensure that patient was not retaining too much urine. Scan showed 202mL at 0545. Patient was cooperative with the procedure, other than trying to cover himself up repeatedly to maintain his modesty. Will continue to monitor and report to oncoming shift.
[2020-08-20 06:42] VITALS: BP 129/80
[2020-08-20 06:55] LABS: BASO % 1 % (0-3); EOS # 0.3 x10^3/uL (0.0-0.7); EOS % 4 % (0-3); HEMATOCRIT 40.8 % (39.0-53.0); HEMOGLOBIN 13.7 g/dL (13.0-17.5); LYMPH # 1.3 x10^3/uL (1.0-4.8); LYMPH % 17 % (24-48); MEAN CORPUSCULAR HEMOGLOBIN 31 pg (25-35); MEAN CORPUSCULAR HGB CONC 34 g/dL (31-37); MEAN CORPUSCULAR VOLUME 91 fL (79-100); MONO # 1.1 x10^3/uL (0.0-1.1); MONO % 14 % (0-9); NEUT # 5.1 x10^3uL (1.8-7.7); NEUT % 65 % (31-73); PLATELET COUNT 343 x10^3/uL (140-400); RED BLOOD COUNT 4.49 x10^6/uL (4.30-5.70); RED CELL DISTRIBUTION WIDTH 12.8 % (11.5-14.5); WHITE BLOOD COUNT 7.8 x10^3/uL (4.0-11.0)
[2020-08-20 07:09] LABS: ALBUMIN 2.5 g/dL (3.4-5.0); ALBUMIN/GLOBULIN RATIO 0.7 (1.0-1.7); CALCIUM 8.4 mg/dL (8.5-10.1); CREATININE 1.1 mg/dL (0.7-1.3); GFR 65.1; POTASSIUM 3.8 mmol/L (3.5-5.1); TOTAL BILIRUBIN 0.4 mg/dL (0.2-1.0); TOTAL PROTEIN 6.3 g/dL (6.4-8.2)
--- NOTE | 2020-08-20 08:18 | PDOC ---
Exam Note: Manish Note: This note is a late entry for 08/19/2020 covers elements not covered in my initial note. Subjective: The patient was reviewed on telehealth rounds in the evening of 08/19/2020 with Jessica ULLOA. Discussed with nursing staff, reviewed the chart. He slept 7 hours previous night. The patient has had a difficult day. He remains confused, verbally aggressive, physically threatening staff. He is having urinary retention and is being straight catheterized every 6 hours. I will defer to Dr. Art. Review of Systems: Other than system symptoms, no CV, pulmonary, eye, ENT system symptoms on review. Mental Status Exam: The patient is oriented to himself. He was somewhat dismissive not wanting to talk to me on telehealth rounds. Insight and judgment, recent and remote memory, attention and concentration, fund of know ledge is poor consistent with his diagnosis. Laboratory Data: Reviewed. Impression: Major neurocognitive disorder Alzheimer vascular with delusion, depression, behavioral disturbance. Anxiety disorder unspecified. Impulse control disorder. Plan: No change from initial note. We will go ahead and increase the Zoloft from 25 mg a day to 50 mg a day, Risperdal is currently 0.5 mg h.s. We will change to 0.25 mg 3times a day. Continue rest of the psychotropics unchanged. Adjust as clinically indicated. Assessment: Vital Signs/I&O: Vital Signs Date Time Temp Pulse Resp B/P (MAP) Pulse Ox O2 Delivery O2 Flow Rate FiO2 08/20/20 06:42 97.9 93 18 129/80 (96) 95 08/18/20 16:54 Room Air I & O 08/19/20 08/19/20 08/20/20 15:00 23:00 07:00 Intake Total 240 ml 340 ml Balance 240 ml 340 ml Labs: Laboratory Tests Test 08/20/20 06:29 White Blood Count 7.8 x10^3/uL (4.0-11.0) Red Blood Count 4.49 x10^6/uL (4.30-5.70) Hemoglobin 13.7 g/dL (13.0-17.5) Hematocrit 40.8 % (39.0-53.0) Mean Corpuscular Volume 91 fL (79-100) Mean Corpuscular Hemoglobin 31 pg (25-35) Mean Corpuscular Hemoglobin Concent 34 g/dL (31-37) Red Cell Distribution Width 12.8 % (11.5-14.5) Platelet Count 343 x10^3/uL (140-400) Neutrophils (%) (Auto) 65 % (31-73) Lymphocytes (%) (Auto) 17 % (24-48) L Monocytes (%) (Auto) 14 % (0-9) H Eosinophils (%) (Auto) 4 % (0-3) H Basophils (%) (Auto) 1 % (0-3) Neutrophils # (Auto) 5.1 x10^3uL (1.8-7.7) Lymphocytes # (Auto) 1.3 x10^3/uL (1.0-4.8) Monocytes # (Auto) 1.1 x10^3/uL (0.0-1.1) Eosinophils # (Auto) 0.3 x10^3/uL (0.0-0.7) Basophils # (Auto) 0.0 x10^3/uL (0.0-0.2) Sodium Level 140 mmol/L (136-145) Potassium Level 3.8 mmol/L (3.5-5.1) Chloride Level 104 mmol/L (98-107) Carbon Dioxide Level 27 mmol/L (21-32) Anion Gap 9 (6-14) Blood Urea Nitrogen 17 mg/dL (8-26) Creatinine 1.1 mg/dL (0.7-1.3) Estimated GFR (Cockcroft-Gault) 65.1 BUN/Creatinine Ratio 15 (6-20) Glucose Level 105 mg/dL (70-99) H Calcium Level 8.4 mg/dL (8.5-10.1) L Total Bilirubin 0.4 mg/dL (0.2-1.0) Aspartate Amino Transferase (AST) 29 U/L (15-37) Alanine Aminotransferase (ALT) 28 U/L (16-63) Alkaline Phosphatase 68 U/L (46-116) Total Protein 6.3 g/dL (6.4-8.2) L Albumin 2.5 g/dL (3.4-5.0) L Albumin/Globulin Ratio 0.7 (1.0-1.7) L Current Medications: Meds: Laboratory Tests Test 08/20/20 06:29 White Blood Count 7.8 x10^3/uL Red Blood Count 4.49 x10^6/uL Hemoglobin 13.7 g/dL Hematocrit 40.8 % Mean Corpuscular Volume 91 fL Mean Corpuscular Hemoglobin 31 pg Mean Corpuscular Hemoglobin Concent 34 g/dL Red Cell Distribution Width 12.8 % Platelet Count 343 x10^3/uL Neutrophils (%) (Auto) 65 % Lymphocytes (%) (Auto) 17 % Monocytes (%) (Auto) 14 % Eosinophils (%) (Auto) 4 % Basophils (%) (Auto) 1 % Neutrophils # (Auto) 5.1 x10^3uL Lymphocytes # (Auto) 1.3 x10^3/uL Monocytes # (Auto) 1.1 x10^3/uL Eosinophils # (Auto) 0.3 x10^3/uL Basophils # (Auto) 0.0 x10^3/uL Sodium Level 140 mmol/L Potassium Level 3.8 mmol/L Chloride Level 104 mmol/L Carbon Dioxide Level 27 mmol/L Anion Gap 9 Blood Urea Nitrogen 17 mg/dL Creatinine 1.1 mg/dL Estimated GFR (Cockcroft-Gault) 65.1 BUN/Creatinine Ratio 15 Glucose Level 105 mg/dL Calcium Level 8.4 mg/dL Total Bilirubin 0.4 mg/dL Aspartate Amino Transf (AST/SGOT) 29 U/L Alanine Aminotransferase (ALT/SGPT) 28 U/L Alkaline Phosphatase 68 U/L Total Protein 6.3 g/dL Albumin 2.5 g/dL Albumin/Globulin Ratio 0.7 Current Medications Medications (Trade) Dose Ordered Sig/Sonia Route PRN Reason Start Time Stop Time Status Last Admin Dose Admin Acetaminophen (Tylenol) 650 mg PRN Q6HRS PRN PO MILD PAIN / TEMP > 100.3'F 08/01/20 15:45 08/11/20 12:14 Multi-Ingredient Ointment (Analgesic [place]) 1 olu PRN QID PRN TP MUSCLE PAIN 08/01/20 15:45 08/10/20 08:39 Al Hydroxide/Mg Hydroxide (Mylanta Plus Xs) 15 ml PRN AFTMEALHC PRN PO DYSPEPSIA 08/01/20 15:45 Magnesium Hydroxide (Milk Of Magnesia) 2,400 mg PRN QHS PRN PO CONSTIPATION 08/01/20 15:45 08/06/20 06:06 Fenofibrate (Tricor) 48 mg DAILY PO 08/02/20 09:00 08/19/20 09:46 Fluticasone Propionate (Flonase) 2 spray DAILY NS 08/02/20 09:00 08/19/20 09:47 Metoprolol Succinate (Toprol Xl) 50 mg DAILY PO 08/02/20 09:00 08/19/20 09:45 Mirtazapine (Remeron) 15 mg QHS PO 08/01/20 21:00 08/03/20 18:01 DC 08/02/20 20:59 Olanzapine (ZyPREXA ZYDIS) 5 mg DAILY PO 08/02/20 09:00 08/03/20 18:01 DC 08/03/20 09:47 Pantoprazole Sodium (Protonix) 40 mg DAILY PO 08/02/20 09:00 08/19/20 09:45 Non-Formulary Medication (Lutein ) 20 mg DAILY PO 08/02/20 09:00 UNV Multivitamins/ Calcium (Thera-M Plus) 1 tab DAILY PO 08/02/20 09:00 08/19/20 09:46 Olanzapine (ZyPREXA ZYDIS) 2.5 mg PRN Q2HR PRN PO PSYCHOSIS 08/01/20 23:30 08/06/20 13:43 DC 08/06/20 09:53 Trazodone HCl (Desyrel) 50 mg PRN QHS PRN PO INSOMNIA, MAY REPEAT X2 08/01/20 23:30 08/18/20 00:09 Melatonin (Melatonin) 3 mg QHS PO 08/02/20 21:00 08/19/20 20:02 Tamsulosin HCl (Flomax) 0.4 mg DAILY PO 08/03/20 09:00 08/03/20 12:33 DC 08/03/20 09:47 Tamsulosin HCl (Flomax) 0.4 mg 1X ONCE PO 08/02/20 21:00 08/02/20 21:01 DC 08/02/20 21:01 Tamsulosin HCl (Flomax) 0.4 mg BID PO 08/03/20 14:00 08/19/20 20:01 Risperidone (RisperDAL) 0.25 mg QHS PO 08/03/20 21:00 08/11/20 18:23 DC 08/10/20 20:07 Trazodone HCl (Desyrel) 100 mg QHS PO 08/05/20 21:00 08/19/20 20:01 Levofloxacin (Levaquin) 250 mg DAILY PO 08/06/20 11:30 08/10/20 23:59 DC 08/10/20 08:38 Olanzapine (ZyPREXA ZYDIS) 5 mg PRN Q2HR PRN PO PSYCHOSIS 08/06/20 13:45 08/17/20 19:31 Lorazepam (Ativan) 1 mg 1X ONCE PO 08/06/20 18:15 08/06/20 18:22 DC Lorazepam (Ativan) 1 mg 1X PRN PO ANXIETY / AGITATION 08/06/20 18:30 08/07/20 00:00 DC 08/06/20 18:52 Lactobacillus Rhamnosus (Culturelle) 1 cap BID PO 08/07/20 21:00 08/19/20 20:00 Sertraline HCl (Zoloft) 25 mg QHS PO 08/10/20 21:00 08/19/20 17:06 DC 08/18/20 20:41 Risperidone (RisperDAL) 0.5 mg QHS PO 08/11/20 21:00 08/19/20 17:06 DC 08/18/20 20:41 Cephalexin HCl (Keflex) 500 mg TID PO 08/17/20 14:00 08/24/20 13:59 08/19/20 20:02 Sertraline HCl (Zoloft) 50 mg QHS PO 08/19/20 21:00 08/19/20 20:03 Risperidone (RisperDAL) 0.25 mg 0900,1300,1700 PO 08/20/20 09:00 08/19/20 17:11 DC Risperidone (RisperDAL) 0.25 mg 0900,1300,1700 PO 08/19/20 17:15 08/19/20 17:22 Current Medications Medications (Trade) Dose Ordered Sig/Sonia Route PRN Reason Start Time Stop Time Status Last Admin Dose Admin Sertraline HCl (Zoloft) 50 mg QHS PO 08/19/20 21:00 08/19/20 20:03 Risperidone (RisperDAL) 0.25 mg 0900,1300,1700 PO 08/19/20 17:15 08/19/20 17:22 I have reviewed the current psychotropics carefully including drug interactions. Risk benefit ratio favors no change other than as noted in my dictated progress note. Diagnosis: Problems: (1) Impulse control disorder, unspecified (2) Vascular dementia with delusions (3) Anxiety disorder, unspecified (4) Vascular dementia with depression (5) Major neurocognitive disorder PRABHAKAR MOLINA MD Aug 20, 2020 08:18
[2020-08-20] MEDS ORDERED: risperiDONE 0.25 MG TABLET. PO SCH (09:00)
[2020-08-20] MEDS: FLUTICASONE 50MCG/NASAL SPRAY 16GM BOTTLE. NS SCH (09:00)
[2020-08-20] MEDS: FENOFIBRATE NANOCRYSTALLIZED 48 MG TABLET PO SCH (10:00)
[2020-08-20] MEDS: CEPHALEXIN 250 MG CAPSULE PO SCH ×3 (10:00→20:54)
[2020-08-20] MEDS: LACTOBACILLUS RHAMNOSUS GG 1 CAPSULE. PO SCH ×2 (10:00→20:52)
[2020-08-20] MEDS: risperiDONE 0.25 MG TABLET. PO SCH ×3 (10:00→17:34)
[2020-08-20] MEDS: MULTIVITAMIN with MINERAL TABLET. PO SCH (10:00)
[2020-08-20] MEDS: TAMSULOSIN 0.4 MG CAP.ER.24H. PO SCH ×2 (10:00→20:53)
[2020-08-20] MEDS: PANTOPRAZOLE 40 MG TABLET. PO SCH (10:01)
[2020-08-20] MEDS: METOPROLOL SUCC 24HR ER 50 MG TAB.ER.24H. PO SCH (10:01)
--- NOTE | 2020-08-20 11:35 | NUR ---
5 mg Zyprexa PO PRN administered d/t increased anxiety
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
[2020-08-20 15:54] VITALS: BP 125/81
[2020-08-20] MEDS: ACETAMINOPHEN 325 MG TABLET PO PRN (18:32)
--- NOTE | 2020-08-20 18:33 | NUR ---
This nurse received a call from pt's . She states she just got off the phone with pt who told her he was having severe L knee and hip pain. She asked if pt could get an x-ray. This nurse reported that she could pass the information along to the following shift to place on rounds list for the morning of 08/21/20. Upon assessment pt reports 10/10 pain in L knee and hip; he is watching the [employer] game in his w/c, sitting slouched. Breathing even, equal and unlabored. Skin warm and dry, color pink but not flushed. He does not appear to be shifting in his seat or adjusting positions. PRN acetaminophen 650 mg PO administered at his request.
[2020-08-20] MEDS: MELATONIN 3 MG TABLET PO SCH (20:52)
[2020-08-20] MEDS: MIRTAZAPINE 7.5 MG TABLET. PO SCH (20:53)
[2020-08-20] MEDS: SERTRALINE 25 MG TABLET. PO SCH (20:53)
[2020-08-20] MEDS: traZODone 100 MG TABLET. PO SCH (20:53)
--- NOTE | 2020-08-20 20:58 | PDOC ---
Exam Note: Manish Note: Please also refer to the separate dictated note~for this date of service dictated separately.~Patient seen individually. Discussed the patient with Nursing staff reviewed the chart.~Reviewed interim history and current functioning. Reviewed vital signs,~Labs/ Radiology~and current medications noted below. Continue current treatment with the changes noted in the dictated addendum note Assessment: Vital Signs/I&O: Vital Signs Date Time Temp Pulse Resp B/P (MAP) Pulse Ox O2 Delivery O2 Flow Rate FiO2 08/20/20 15:54 98.0 87 18 125/81 (96) 96 08/18/20 16:54 Room Air I & O 08/19/20 08/19/20 08/20/20 15:00 23:00 07:00 Intake Total 240 ml 340 ml Balance 240 ml 340 ml Labs: Laboratory Tests Test 08/20/20 06:29 White Blood Count 7.8 x10^3/uL (4.0-11.0) Red Blood Count 4.49 x10^6/uL (4.30-5.70) Hemoglobin 13.7 g/dL (13.0-17.5) Hematocrit 40.8 % (39.0-53.0) Mean Corpuscular Volume 91 fL (79-100) Mean Corpuscular Hemoglobin 31 pg (25-35) Mean Corpuscular Hemoglobin Concent 34 g/dL (31-37) Red Cell Distribution Width 12.8 % (11.5-14.5) Platelet Count 343 x10^3/uL (140-400) Neutrophils (%) (Auto) 65 % (31-73) Lymphocytes (%) (Auto) 17 % (24-48) L Monocytes (%) (Auto) 14 % (0-9) H Eosinophils (%) (Auto) 4 % (0-3) H Basophils (%) (Auto) 1 % (0-3) Neutrophils # (Auto) 5.1 x10^3uL (1.8-7.7) Lymphocytes # (Auto) 1.3 x10^3/uL (1.0-4.8) Monocytes # (Auto) 1.1 x10^3/uL (0.0-1.1) Eosinophils # (Auto) 0.3 x10^3/uL (0.0-0.7) Basophils # (Auto) 0.0 x10^3/uL (0.0-0.2) Sodium Level 140 mmol/L (136-145) Potassium Level 3.8 mmol/L (3.5-5.1) Chloride Level 104 mmol/L (98-107) Carbon Dioxide Level 27 mmol/L (21-32) Anion Gap 9 (6-14) Blood Urea Nitrogen 17 mg/dL (8-26) Creatinine 1.1 mg/dL (0.7-1.3) Estimated GFR (Cockcroft-Gault) 65.1 BUN/Creatinine Ratio 15 (6-20) Glucose Level 105 mg/dL (70-99) H Calcium Level 8.4 mg/dL (8.5-10.1) L Total Bilirubin 0.4 mg/dL (0.2-1.0) Aspartate Amino Transferase (AST) 29 U/L (15-37) Alanine Aminotransferase (ALT) 28 U/L (16-63) Alkaline Phosphatase 68 U/L (46-116) Total Protein 6.3 g/dL (6.4-8.2) L Albumin 2.5 g/dL (3.4-5.0) L Albumin/Globulin Ratio 0.7 (1.0-1.7) L Current Medications: Meds: Laboratory Tests Test 08/20/20 06:29 White Blood Count 7.8 x10^3/uL Red Blood Count 4.49 x10^6/uL Hemoglobin 13.7 g/dL Hematocrit 40.8 % Mean Corpuscular Volume 91 fL Mean Corpuscular Hemoglobin 31 pg Mean Corpuscular Hemoglobin Concent 34 g/dL Red Cell Distribution Width 12.8 % Platelet Count 343 x10^3/uL Neutrophils (%) (Auto) 65 % Lymphocytes (%) (Auto) 17 % Monocytes (%) (Auto) 14 % Eosinophils (%) (Auto) 4 % Basophils (%) (Auto) 1 % Neutrophils # (Auto) 5.1 x10^3uL Lymphocytes # (Auto) 1.3 x10^3/uL Monocytes # (Auto) 1.1 x10^3/uL Eosinophils # (Auto) 0.3 x10^3/uL Basophils # (Auto) 0.0 x10^3/uL Sodium Level 140 mmol/L Potassium Level 3.8 mmol/L Chloride Level 104 mmol/L Carbon Dioxide Level 27 mmol/L Anion Gap 9 Blood Urea Nitrogen 17 mg/dL Creatinine 1.1 mg/dL Estimated GFR (Cockcroft-Gault) 65.1 BUN/Creatinine Ratio 15 Glucose Level 105 mg/dL Calcium Level 8.4 mg/dL Total Bilirubin 0.4 mg/dL Aspartate Amino Transf (AST/SGOT) 29 U/L Alanine Aminotransferase (ALT/SGPT) 28 U/L Alkaline Phosphatase 68 U/L Total Protein 6.3 g/dL Albumin 2.5 g/dL Albumin/Globulin Ratio 0.7 Current Medications Medications (Trade) Dose Ordered Sig/Sonia Route PRN Reason Start Time Stop Time Status Last Admin Dose Admin Acetaminophen (Tylenol) 650 mg PRN Q6HRS PRN PO MILD PAIN / TEMP > 100.3'F 08/01/20 15:45 08/20/20 18:32 Multi-Ingredient Ointment (Analgesic [place]) 1 lou PRN QID PRN TP MUSCLE PAIN 08/01/20 15:45 08/10/20 08:39 Al Hydroxide/Mg Hydroxide (Mylanta Plus Xs) 15 ml PRN AFTMEALHC PRN PO DYSPEPSIA 08/01/20 15:45 Magnesium Hydroxide (Milk Of Magnesia) 2,400 mg PRN QHS PRN PO CONSTIPATION 08/01/20 15:45 08/06/20 06:06 Fenofibrate (Tricor) 48 mg DAILY PO 08/02/20 09:00 08/20/20 10:00 Fluticasone Propionate (Flonase) 2 spray DAILY NS 08/02/20 09:00 08/20/20 09:00 Metoprolol Succinate (Toprol Xl) 50 mg DAILY PO 08/02/20 09:00 08/20/20 10:01 Mirtazapine (Remeron) 15 mg QHS PO 08/01/20 21:00 08/03/20 18:01 DC 08/02/20 20:59 Olanzapine (ZyPREXA ZYDIS) 5 mg DAILY PO 08/02/20 09:00 08/03/20 18:01 DC 08/03/20 09:47 Pantoprazole Sodium (Protonix) 40 mg DAILY PO 08/02/20 09:00 08/20/20 10:01 Non-Formulary Medication (Lutein ) 20 mg DAILY PO 08/02/20 09:00 UNV Multivitamins/ Calcium (Thera-M Plus) 1 tab DAILY PO 08/02/20 09:00 08/20/20 10:00 Olanzapine (ZyPREXA ZYDIS) 2.5 mg PRN Q2HR PRN PO PSYCHOSIS 08/01/20 23:30 08/06/20 13:43 DC 08/06/20 09:53 Trazodone HCl (Desyrel) 50 mg PRN QHS PRN PO INSOMNIA, MAY REPEAT X2 08/01/20 23:30 08/18/20 00:09 Melatonin (Melatonin) 3 mg QHS PO 08/02/20 21:00 08/20/20 20:52 Tamsulosin HCl (Flomax) 0.4 mg DAILY PO 08/03/20 09:00 08/03/20 12:33 DC 08/03/20 09:47 Tamsulosin HCl (Flomax) 0.4 mg 1X ONCE PO 08/02/20 21:00 08/02/20 21:01 DC 08/02/20 21:01 Tamsulosin HCl (Flomax) 0.4 mg BID PO 08/03/20 14:00 08/20/20 20:53 Risperidone (RisperDAL) 0.25 mg QHS PO 08/03/20 21:00 08/11/20 18:23 DC 08/10/20 20:07 Trazodone HCl (Desyrel) 100 mg QHS PO 08/05/20 21:00 08/20/20 20:53 Levofloxacin (Levaquin) 250 mg DAILY PO 08/06/20 11:30 08/10/20 23:59 DC 08/10/20 08:38 Olanzapine (ZyPREXA ZYDIS) 5 mg PRN Q2HR PRN PO PSYCHOSIS 08/06/20 13:45 08/20/20 11:38 Lorazepam (Ativan) 1 mg 1X ONCE PO 08/06/20 18:15 08/06/20 18:22 DC Lorazepam (Ativan) 1 mg 1X PRN PO ANXIETY / AGITATION 08/06/20 18:30 08/07/20 00:00 DC 08/06/20 18:52 Lactobacillus Rhamnosus (Culturelle) 1 cap BID PO 08/07/20 21:00 08/20/20 20:52 Sertraline HCl (Zoloft) 25 mg QHS PO 08/10/20 21:00 08/19/20 17:06 DC 08/18/20 20:41 Risperidone (RisperDAL) 0.5 mg QHS PO 08/11/20 21:00 08/19/20 17:06 DC 08/18/20 20:41 Cephalexin HCl (Keflex) 500 mg TID PO 08/17/20 14:00 08/24/20 13:59 08/20/20 20:54 Sertraline HCl (Zoloft) 50 mg QHS PO 08/19/20 21:00 08/20/20 20:53 Risperidone (RisperDAL) 0.25 mg 0900,1300,1700 PO 08/20/20 09:00 08/19/20 17:11 DC Risperidone (RisperDAL) 0.25 mg 0900,1300,1700 PO 08/19/20 17:15 08/20/20 17:34 Mirtazapine (Remeron) 7.5 mg QHS PO 08/20/20 21:00 08/20/20 20:53 Current Medications Medications (Trade) Dose Ordered Sig/Sonia Route PRN Reason Start Time Stop Time Status Last Admin Dose Admin Sertraline HCl (Zoloft) 50 mg QHS PO 08/19/20 21:00 08/20/20 20:53 Mirtazapine (Remeron) 7.5 mg QHS PO 08/20/20 21:00 08/20/20 20:53 I have reviewed the current psychotropics carefully including drug interactions. Risk benefit ratio favors no change other than as noted in my dictated progress note. Diagnosis: Problems: (1) Psychotic disorder (2) Impulse control disorder, unspecified (3) Vascular dementia with delusions (4) Anxiety disorder, unspecified (5) Vascular dementia with depression (6) Major neurocognitive disorder PRABHAKAR MOLINA MD Aug 20, 2020 20:58
--- NOTE | 2020-08-20 23:04 | NUR ---
Patient is located in the day room on assumption of care, enjoying the [employer] game. Disorganized, slow. Compliant with assessments and medications whole. No agitation. Denies any pain or discomfort. Patient appears to be sleeping at present time. Will continue to monitor.
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
[2020-08-21 06:28] VITALS: BP 136/89
--- NOTE | 2020-08-21 06:42 | NUR ---
This nurse went into patient's room and woke him up to ask if he would be agreeable to having his bladder scanned. He answered "Sure thing, I don't mind." This nurse retrieved the bladder scanner and was able to perform the procedure independently with no resistance from the patient. Bladder scan showed greater than 500mL. This nurse informed the patient that he would need to be straight cathed, and that the nurse would need assistance from other staff. He said "Well, I wish you could just do it yourself, but OK." Staff assist of 2 plus this nurse were able to obtain 600mL of dark claudia urine from the patient with no agitation or combativeness. After being cleaned up and tucked back in, patient said "I didn't feel a thing, thanks." Will continue to monitor and report to oncoming staff.
[2020-08-21] MEDS: FLUTICASONE 50MCG/NASAL SPRAY 16GM BOTTLE. NS SCH (08:23)
[2020-08-21] MEDS: METOPROLOL SUCC 24HR ER 50 MG TAB.ER.24H. PO SCH (08:24)
[2020-08-21] MEDS: FENOFIBRATE NANOCRYSTALLIZED 48 MG TABLET PO SCH (08:24)
[2020-08-21] MEDS: MULTIVITAMIN with MINERAL TABLET. PO SCH (08:24)
[2020-08-21] MEDS: PANTOPRAZOLE 40 MG TABLET. PO SCH (08:24)
[2020-08-21] MEDS: LACTOBACILLUS RHAMNOSUS GG 1 CAPSULE. PO SCH ×2 (08:24→20:27)
[2020-08-21] MEDS: risperiDONE 0.25 MG TABLET. PO SCH ×3 (08:24→16:51)
[2020-08-21] MEDS: TAMSULOSIN 0.4 MG CAP.ER.24H. PO SCH ×2 (08:24→20:28)
[2020-08-21] MEDS: CEPHALEXIN 250 MG CAPSULE PO SCH ×3 (08:25→20:28)
--- NOTE | 2020-08-21 08:48 | PDOC ---
Exam Note: Manish Note: This note is a late entry for 08/20/2020 covers elements not covered in my initial note. Subjective: The patient was reviewed on telehealth rounds in the evening of 08/20/2020 with Jessica ULLOA. Discussed with nursing staff, reviewed the chart. He slept just 2 hours previous night. The patient has been anxious, restless, confused. Received Zyprexa 5 mg at 11.15 a.m. He was more anxious in the afternoon due to lot of noise on the unit. He remains confused, believes he is in [place], [place]. Hernandez catheter has been removed and he ambulates with one person assist. Review of Systems: No CV, pulmonary, eye, ENT system symptoms on review. Mental Status Exam: The patient is oriented to himself. He is less dismissive today, more interactive as compared to the day before. No suicidal or homicidal ideation. Attention span is short. Short-term memory is impaired. Language function is intact. Laboratory Data: Reviewed. Impression: Major neurocognitive disorder Alzheimer vascular with delusion, depression, behavioral disturbance. Anxiety disorder unspecified. Impulse control disorder. Plan: Due to his ongoing insomnia, we will start Remeron 7.5 mg h.s., Zyprexa p.r.n. has been added. We will continue rest of the psychotropics unchanged. Assessment: Vital Signs/I&O: Vital Signs Date Time Temp Pulse Resp B/P (MAP) Pulse Ox O2 Delivery O2 Flow Rate FiO2 08/21/20 08:24 96 136/89 08/21/20 06:28 96.9 18 97 Room Air I & O 08/20/20 08/20/20 08/21/20 15:00 23:00 07:00 Intake Total 560 ml 360 ml 120 ml Balance 560 ml 360 ml 120 ml Current Medications: Meds: Current Medications Medications (Trade) Dose Ordered Sig/Sonia Route PRN Reason Start Time Stop Time Status Last Admin Dose Admin Acetaminophen (Tylenol) 650 mg PRN Q6HRS PRN PO MILD PAIN / TEMP > 100.3'F 08/01/20 15:45 08/20/20 18:32 Multi-Ingredient Ointment (Analgesic [place]) 1 olu PRN QID PRN TP MUSCLE PAIN 08/01/20 15:45 08/10/20 08:39 Al Hydroxide/Mg Hydroxide (Mylanta Plus Xs) 15 ml PRN AFTMEALHC PRN PO DYSPEPSIA 08/01/20 15:45 Magnesium Hydroxide (Milk Of Magnesia) 2,400 mg PRN QHS PRN PO CONSTIPATION 08/01/20 15:45 08/06/20 06:06 Fenofibrate (Tricor) 48 mg DAILY PO 08/02/20 09:00 08/21/20 08:24 Fluticasone Propionate (Flonase) 2 spray DAILY NS 08/02/20 09:00 08/21/20 08:23 Metoprolol Succinate (Toprol Xl) 50 mg DAILY PO 08/02/20 09:00 08/21/20 08:24 Mirtazapine (Remeron) 15 mg QHS PO 08/01/20 21:00 08/03/20 18:01 DC 08/02/20 20:59 Olanzapine (ZyPREXA ZYDIS) 5 mg DAILY PO 08/02/20 09:00 08/03/20 18:01 DC 08/03/20 09:47 Pantoprazole Sodium (Protonix) 40 mg DAILY PO 08/02/20 09:00 08/21/20 08:24 Non-Formulary Medication (Lutein ) 20 mg DAILY PO 08/02/20 09:00 UNV Multivitamins/ Calcium (Thera-M Plus) 1 tab DAILY PO 08/02/20 09:00 08/21/20 08:24 Olanzapine (ZyPREXA ZYDIS) 2.5 mg PRN Q2HR PRN PO PSYCHOSIS 08/01/20 23:30 08/06/20 13:43 DC 08/06/20 09:53 Trazodone HCl (Desyrel) 50 mg PRN QHS PRN PO INSOMNIA, MAY REPEAT X2 08/01/20 23:30 08/18/20 00:09 Melatonin (Melatonin) 3 mg QHS PO 08/02/20 21:00 08/20/20 20:52 Tamsulosin HCl (Flomax) 0.4 mg DAILY PO 08/03/20 09:00 08/03/20 12:33 DC 08/03/20 09:47 Tamsulosin HCl (Flomax) 0.4 mg 1X ONCE PO 08/02/20 21:00 08/02/20 21:01 DC 08/02/20 21:01 Tamsulosin HCl (Flomax) 0.4 mg BID PO 08/03/20 14:00 08/21/20 08:24 Risperidone (RisperDAL) 0.25 mg QHS PO 08/03/20 21:00 08/11/20 18:23 DC 08/10/20 20:07 Trazodone HCl (Desyrel) 100 mg QHS PO 08/05/20 21:00 08/20/20 20:53 Levofloxacin (Levaquin) 250 mg DAILY PO 08/06/20 11:30 08/10/20 23:59 DC 08/10/20 08:38 Olanzapine (ZyPREXA ZYDIS) 5 mg PRN Q2HR PRN PO PSYCHOSIS 08/06/20 13:45 08/21/20 05:23 Lorazepam (Ativan) 1 mg 1X ONCE PO 08/06/20 18:15 08/06/20 18:22 DC Lorazepam (Ativan) 1 mg 1X PRN PO ANXIETY / AGITATION 08/06/20 18:30 08/07/20 00:00 DC 08/06/20 18:52 Lactobacillus Rhamnosus (Culturelle) 1 cap BID PO 08/07/20 21:00 08/21/20 08:24 Sertraline HCl (Zoloft) 25 mg QHS PO 08/10/20 21:00 08/19/20 17:06 DC 08/18/20 20:41 Risperidone (RisperDAL) 0.5 mg QHS PO 08/11/20 21:00 08/19/20 17:06 DC 08/18/20 20:41 Cephalexin HCl (Keflex) 500 mg TID PO 08/17/20 14:00 08/24/20 13:59 08/21/20 08:25 Sertraline HCl (Zoloft) 50 mg QHS PO 08/19/20 21:00 08/20/20 20:53 Risperidone (RisperDAL) 0.25 mg 0900,1300,1700 PO 08/20/20 09:00 08/19/20 17:11 DC Risperidone (RisperDAL) 0.25 mg 0900,1300,1700 PO 08/19/20 17:15 08/21/20 08:24 Mirtazapine (Remeron) 7.5 mg QHS PO 08/20/20 21:00 08/20/20 20:53 Current Medications Medications (Trade) Dose Ordered Sig/Sonia Route PRN Reason Start Time Stop Time Status Last Admin Dose Admin Mirtazapine (Remeron) 7.5 mg QHS PO 08/20/20 21:00 08/20/20 20:53 I have reviewed the current psychotropics carefully including drug interactions. Risk benefit ratio favors no change other than as noted in my dictated progress note. Diagnosis: Problems: (1) Psychotic disorder (2) Impulse control disorder, unspecified (3) Vascular dementia with delusions (4) Anxiety disorder, unspecified (5) Vascular dementia with depression (6) Major neurocognitive disorder PRABHAKAR MOLINA MD Aug 21, 2020 08:48
--- NOTE | 2020-08-21 09:54 | NUR ---
Pt complaint with medications and assessment with morning. He is friendly to staff and expresses complements freely. He is alert to self and place only; he knows that he is in a hospital but does not know why. He denies SI/HI/VH/AH/pain. He expresses no concerns or difficulties with voiding at this time. He is currently on ABT and appears absent of adverse reactions. Will pass on to the next shift
--- NOTE | 2020-08-21 11:13 | NUR ---
Dr Art notified of L knee/hip pain. Order given for xray images of each.
--- NOTE | 2020-08-21 13:59 | NUR ---
While getting pt up for his xray pt was irritable and while in the bathroom the pt could not make up his mind if he wanted the door open or shut and he would state "this is the [place] have some decency." then push his wc against the door. While in CT the pt was irritable and stated "well ok raad is that what you want!?" "what do you know!?" "what do I do now?" The pt was very disorganized and unable to follow directions and resistive with redirection. Nursed called for additional assistance from staff. Male staff member was able to redirect pt and xrays were able to be obtained. While going back to [facility] the pt asked "is this floor raised?" the nurse stated she was not sure. The pt stated "you should know it's your job." When back on [facility] PRN adriel carmichaelis given.
[2020-08-21 16:41] VITALS: BP 127/81
--- NOTE | 2020-08-21 16:43 | RAD ---
Exam performed: Left knee and left hip 2 views. HISTORY: Pain. DATE OF SERVICE: 08/21/2020 COMPARISON: None available FINDINGS: AP and lateral view of the left knee demonstrates mild narrowing of the medial and lateral tibial fem oral and patellofemoral joint. There is no acute fracture or dislocation. No soft tissue swelling or foreign body seen. AP and crosstable lateral view of the left demonstrates normal alignment of the left hip joint. There is no acute fracture or dislocation. Nonspecific bowel gas pattern seen. 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 No acute abnormality seen in the left hip. Electronically signed by: Lima Albrecht MD (08/21/2020 4:40 PM) [id number]
--- NOTE | 2020-08-21 17:48 | NUR ---
Bladder scan reveals 560 mL of urine. Straight cath pending.
--- NOTE | 2020-08-21 18:14 | NUR ---
Straight cath procedure drained 700 mL of claudia colored urine pt. Pt did not tolerate procedure well behaviorally; he yelled and screamed frequently, attempted to hit staff, and required 2 staff members to hold his hands for purpose of pt/staff safety.
[2020-08-21] MEDS: SERTRALINE 25 MG TABLET. PO SCH (20:28)
[2020-08-21] MEDS: MELATONIN 3 MG TABLET PO SCH (20:28)
[2020-08-21] MEDS: MIRTAZAPINE 7.5 MG TABLET. PO SCH (20:28)
[2020-08-21] MEDS: traZODone 100 MG TABLET. PO SCH (20:29)
[2020-08-21] MEDS: ACETAMINOPHEN 325 MG TABLET PO PRN (20:32)
--- NOTE | 2020-08-21 21:04 | PDOC ---
Exam Note: Manish Note: Please also refer to the separate dictated note~for this date of service dictated separately.~Patient seen individually. Discussed the patient with Nursing staff reviewed the chart.~Reviewed interim history and current functioning. Reviewed vital signs,~Labs/ Radiology~and current medications noted below. Continue current treatment with the changes noted in the dictated addendum note Assessment: Vital Signs/I&O: Vital Signs Date Time Temp Pulse Resp B/P (MAP) Pulse Ox O2 Delivery O2 Flow Rate FiO2 08/21/20 16:41 98.0 92 16 127/81 (96) 96 08/21/20 06:28 Room Air I & O 08/20/20 08/20/20 08/21/20 14:59 22:59 06:59 Intake Total 560 ml 360 ml 120 ml Balance 560 ml 360 ml 120 ml Current Medications: Meds: Current Medications Medications (Trade) Dose Ordered Sig/Sonia Route PRN Reason Start Time Stop Time Status Last Admin Dose Admin Acetaminophen (Tylenol) 650 mg PRN Q6HRS PRN PO MILD PAIN / TEMP > 100.3'F 08/01/20 15:45 08/21/20 20:32 Multi-Ingredient Ointment (Analgesic [place]) 1 olu PRN QID PRN TP MUSCLE PAIN 08/01/20 15:45 08/10/20 08:39 Al Hydroxide/Mg Hydroxide (Mylanta Plus Xs) 15 ml PRN AFTMEALHC PRN PO DYSPEPSIA 08/01/20 15:45 Magnesium Hydroxide (Milk Of Magnesia) 2,400 mg PRN QHS PRN PO CONSTIPATION 08/01/20 15:45 08/06/20 06:06 Fenofibrate (Tricor) 48 mg DAILY PO 08/02/20 09:00 08/21/20 08:24 Fluticasone Propionate (Flonase) 2 spray DAILY NS 08/02/20 09:00 08/21/20 08:23 Metoprolol Succinate (Toprol Xl) 50 mg DAILY PO 08/02/20 09:00 08/21/20 08:24 Mirtazapine (Remeron) 15 mg QHS PO 08/01/20 21:00 08/03/20 18:01 DC 08/02/20 20:59 Olanzapine (ZyPREXA ZYDIS) 5 mg DAILY PO 08/02/20 09:00 08/03/20 18:01 DC 08/03/20 09:47 Pantoprazole Sodium (Protonix) 40 mg DAILY PO 08/02/20 09:00 08/21/20 08:24 Non-Formulary Medication (Lutein ) 20 mg DAILY PO 08/02/20 09:00 UNV Multivitamins/ Calcium (Thera-M Plus) 1 tab DAILY PO 08/02/20 09:00 08/21/20 08:24 Olanzapine (ZyPREXA ZYDIS) 2.5 mg PRN Q2HR PRN PO PSYCHOSIS 08/01/20 23:30 08/06/20 13:43 DC 08/06/20 09:53 Trazodone HCl (Desyrel) 50 mg PRN QHS PRN PO INSOMNIA, MAY REPEAT X2 08/01/20 23:30 08/18/20 00:09 Melatonin (Melatonin) 3 mg QHS PO 08/02/20 21:00 08/21/20 20:28 Tamsulosin HCl (Flomax) 0.4 mg DAILY PO 08/03/20 09:00 08/03/20 12:33 DC 08/03/20 09:47 Tamsulosin HCl (Flomax) 0.4 mg 1X ONCE PO 08/02/20 21:00 08/02/20 21:01 DC 08/02/20 21:01 Tamsulosin HCl (Flomax) 0.4 mg BID PO 08/03/20 14:00 08/21/20 20:28 Risperidone (RisperDAL) 0.25 mg QHS PO 08/03/20 21:00 08/11/20 18:23 DC 08/10/20 20:07 Trazodone HCl (Desyrel) 100 mg QHS PO 08/05/20 21:00 08/21/20 20:29 Levofloxacin (Levaquin) 250 mg DAILY PO 08/06/20 11:30 08/10/20 23:59 DC 08/10/20 08:38 Olanzapine (ZyPREXA ZYDIS) 5 mg PRN Q2HR PRN PO PSYCHOSIS 08/06/20 13:45 08/21/20 13:57 Lorazepam (Ativan) 1 mg 1X ONCE PO 08/06/20 18:15 08/06/20 18:22 DC Lorazepam (Ativan) 1 mg 1X PRN PO ANXIETY / AGITATION 08/06/20 18:30 08/07/20 00:00 DC 08/06/20 18:52 Lactobacillus Rhamnosus (Culturelle) 1 cap BID PO 08/07/20 21:00 08/21/20 20:27 Sertraline HCl (Zoloft) 25 mg QHS PO 08/10/20 21:00 08/19/20 17:06 DC 08/18/20 20:41 Risperidone (RisperDAL) 0.5 mg QHS PO 08/11/20 21:00 08/19/20 17:06 DC 08/18/20 20:41 Cephalexin HCl (Keflex) 500 mg TID PO 08/17/20 14:00 08/24/20 13:59 08/21/20 20:28 Sertraline HCl (Zoloft) 50 mg QHS PO 08/19/20 21:00 08/21/20 20:28 Risperidone (RisperDAL) 0.25 mg 0900,1300,1700 PO 08/20/20 09:00 08/19/20 17:11 DC Risperidone (RisperDAL) 0.25 mg 0900,1300,1700 PO 08/19/20 17:15 08/21/20 16:51 Mirtazapine (Remeron) 7.5 mg QHS PO 08/20/20 21:00 08/21/20 20:28 I have reviewed the current psychotropics carefully including drug interactions. Risk benefit ratio favors no change other than as noted in my dictated progress note. Diagnosis: Problems: (1) Psychotic disorder (2) Impulse control disorder, unspecified (3) Vascular dementia with delusions (4) Anxiety disorder, unspecified (5) Vascular dementia with depression (6) Major neurocognitive disorder PRABHAKAR MOLINA MD Aug 21, 2020 21:04
--- NOTE | 2020-08-21 23:48 | NUR ---
Pt resting in bed at time of assessment. Pleasant and interactive when approached. Cooperative with meds whole. Pt has been retaining urine and straight cath was performed by previous shift. Pt declines need to void at this time. Will perform post void bladder scan in AM.
--- NOTE | 2020-08-22 06:06 | NUR ---
Pt has not voided this shift. Pt denies feeling the urge to urinate. Bladder scan performed, showing 910mL urine in bladder. Pt encouraged to attempt urinating. Assisted x2 with walker and gait belt to toilet. Pt sat on toilet for several minutes and reports feeling "some dribbling." Pt assisted back to bed and post-void bladder scan performed with 612mL retained. Straight cath procedure drained 600mL of clear, straw urine. Pt tolerated fair, with x3 assist as pt tends to pull at lines.
[2020-08-22 06:14] VITALS: BP 146/90
--- NOTE | 2020-08-22 08:35 | PDOC ---
Exam Note: Manish Note: This note is a late entry for 08/21/2020 covers elements not covered in my initial note. Subjective: The patient was seen face to face in the evening of 08/21/2020 with Jessica ULLOA. Discussed with nursing staff, reviewed the chart. He slept just 7- 1/4 hours previous night. Overall the patient remains confused, somewhat anxious, restless. He has been agitated. Received some Zyprexa at 1357 hours. He did have a fall. X-ray of the left hip and knee was done. We will defer to Dr. Traylor. He is also on a voiding trial. Review of Systems: No CV, pulmonary, eye, ENT system symptoms on review. Reliability poor. Mental Status Exam: The patient is oriented to himself. Insight and judgment, recent and remote memory, attention and concentration, fund of knowledge is poor consistent with his diagnoses. He was somewhat dismissive as I met with him. Laboratory Data: Reviewed. Impression: Major neurocognitive disorder Alzheimer vascular with delusion, depression, behavioral disturbance. Anxiety disorder unspecified. Impulse control disorder. Plan: No change from initial note. We will adjust psychotropics further as clinically indicated. Assessment: Vital Signs/I&O: Vital Signs Date Time Temp Pulse Resp B/P (MAP) Pulse Ox O2 Delivery O2 Flow Rate FiO2 08/22/20 06:14 98.2 87 20 146/90 (108) 99 Room Air I & O 08/21/20 08/21/20 08/22/20 15:00 23:00 07:00 Intake Total 480 ml 360 ml Output Total 700 ml Balance 480 ml -340 ml Current Medications: Meds: Current Medications Medications (Trade) Dose Ordered Sig/Sonia Route PRN Reason Start Time Stop Time Status Last Admin Dose Admin Acetaminophen (Tylenol) 650 mg PRN Q6HRS PRN PO MILD PAIN / TEMP > 100.3'F 08/01/20 15:45 08/21/20 20:32 Multi-Ingredient Ointment (Analgesic [place]) 1 olu PRN QID PRN TP MUSCLE PAIN 08/01/20 15:45 08/10/20 08:39 Al Hydroxide/Mg Hydroxide (Mylanta Plus Xs) 15 ml PRN AFTMEALHC PRN PO DYSPEPSIA 08/01/20 15:45 Magnesium Hydroxide (Milk Of Magnesia) 2,400 mg PRN QHS PRN PO CONSTIPATION 08/01/20 15:45 08/06/20 06:06 Fenofibrate (Tricor) 48 mg DAILY PO 08/02/20 09:00 08/21/20 08:24 Fluticasone Propionate (Flonase) 2 spray DAILY NS 08/02/20 09:00 08/21/20 08:23 Metoprolol Succinate (Toprol Xl) 50 mg DAILY PO 08/02/20 09:00 08/21/20 08:24 Mirtazapine (Remeron) 15 mg QHS PO 08/01/20 21:00 08/03/20 18:01 DC 08/02/20 20:59 Olanzapine (ZyPREXA ZYDIS) 5 mg DAILY PO 08/02/20 09:00 08/03/20 18:01 DC 08/03/20 09:47 Pantoprazole Sodium (Protonix) 40 mg DAILY PO 08/02/20 09:00 08/21/20 08:24 Non-Formulary Medication (Lutein ) 20 mg DAILY PO 08/02/20 09:00 UNV Multivitamins/ Calcium (Thera-M Plus) 1 tab DAILY PO 08/02/20 09:00 08/21/20 08:24 Olanzapine (ZyPREXA ZYDIS) 2.5 mg PRN Q2HR PRN PO PSYCHOSIS 08/01/20 23:30 08/06/20 13:43 DC 08/06/20 09:53 Trazodone HCl (Desyrel) 50 mg PRN QHS PRN PO INSOMNIA, MAY REPEAT X2 08/01/20 23:30 08/18/20 00:09 Melatonin (Melatonin) 3 mg QHS PO 08/02/20 21:00 08/21/20 20:28 Tamsulosin HCl (Flomax) 0.4 mg DAILY PO 08/03/20 09:00 08/03/20 12:33 DC 08/03/20 09:47 Tamsulosin HCl (Flomax) 0.4 mg 1X ONCE PO 08/02/20 21:00 08/02/20 21:01 DC 08/02/20 21:01 Tamsulosin HCl (Flomax) 0.4 mg BID PO 08/03/20 14:00 08/21/20 20:28 Risperidone (RisperDAL) 0.25 mg QHS PO 08/03/20 21:00 08/11/20 18:23 DC 08/10/20 20:07 Trazodone HCl (Desyrel) 100 mg QHS PO 08/05/20 21:00 08/21/20 20:29 Levofloxacin (Levaquin) 250 mg DAILY PO 08/06/20 11:30 08/10/20 23:59 DC 08/10/20 08:38 Olanzapine (ZyPREXA ZYDIS) 5 mg PRN Q2HR PRN PO PSYCHOSIS 08/06/20 13:45 08/21/20 13:57 Lorazepam (Ativan) 1 mg 1X ONCE PO 08/06/20 18:15 08/06/20 18:22 DC Lorazepam (Ativan) 1 mg 1X PRN PO ANXIETY / AGITATION 08/06/20 18:30 08/07/20 00:00 DC 08/06/20 18:52 Lactobacillus Rhamnosus (Culturelle) 1 cap BID PO 08/07/20 21:00 08/21/20 20:27 Sertraline HCl (Zoloft) 25 mg QHS PO 08/10/20 21:00 08/19/20 17:06 DC 08/18/20 20:41 Risperidone (RisperDAL) 0.5 mg QHS PO 08/11/20 21:00 08/19/20 17:06 DC 08/18/20 20:41 Cephalexin HCl (Keflex) 500 mg TID PO 08/17/20 14:00 08/24/20 13:59 08/21/20 20:28 Sertraline HCl (Zoloft) 50 mg QHS PO 08/19/20 21:00 08/21/20 20:28 Risperidone (RisperDAL) 0.25 mg 0900,1300,1700 PO 08/20/20 09:00 08/19/20 17:11 DC Risperidone (RisperDAL) 0.25 mg 0900,1300,1700 PO 08/19/20 17:15 08/21/20 16:51 Mirtazapine (Remeron) 7.5 mg QHS PO 08/20/20 21:00 08/21/20 20:28 I have reviewed the current psychotropics carefully including drug interactions. Risk benefit ratio favors no change other than as noted in my dictated progress note. Diagnosis: Problems: (1) Psychotic disorder (2) Impulse control disorder, unspecified (3) Vascular dementia with delusions (4) Anxiety disorder, unspecified (5) Vascular dementia with depression (6) Major neurocognitive disorder PRABHAKAR MOLINA MD Aug 22, 2020 08:35
[2020-08-22] MEDS: TAMSULOSIN 0.4 MG CAP.ER.24H. PO SCH ×2 (09:39→20:42)
[2020-08-22] MEDS: METOPROLOL SUCC 24HR ER 50 MG TAB.ER.24H. PO SCH (09:39)
[2020-08-22] MEDS: FENOFIBRATE NANOCRYSTALLIZED 48 MG TABLET PO SCH (09:39)
[2020-08-22] MEDS: LACTOBACILLUS RHAMNOSUS GG 1 CAPSULE. PO SCH ×2 (09:39→20:42)
[2020-08-22] MEDS: PANTOPRAZOLE 40 MG TABLET. PO SCH (09:40)
[2020-08-22] MEDS: CEPHALEXIN 250 MG CAPSULE PO SCH ×3 (09:40→20:42)
[2020-08-22] MEDS: risperiDONE 0.25 MG TABLET. PO SCH ×3 (09:40→17:00)
[2020-08-22] MEDS: MULTIVITAMIN with MINERAL TABLET. PO SCH (09:40)
[2020-08-22] MEDS: FLUTICASONE 50MCG/NASAL SPRAY 16GM BOTTLE. NS SCH (09:40)
[2020-08-22 16:25] VITALS: BP 104/70
--- NOTE | 2020-08-22 17:56 | NUR ---
Patient stayed in bed asleep until 10:00am. I then woke him up and gave him morning medications. He had not voiding at this point. Spoke to Dr Art and he would like for us to go ahead and re insert the pearson catheter to help with retention problem. When I tried to put the pearson catheter in, I was unsuccessful and was not able to insert. It is almost as if there is a blockage of some sort. I will pass on to production shift supervisor nurse and see from there what we would like to do, if they want to try to place. I did have 2 other nurses try as well. Patient did well with the process and did not hit or try to hit anyone. He took his medications whole with no problems. Patient did void after we tried to catherize him. So he did void today. It was a large amount but he is totally incontinent so unable to know how much. No further concerns at this time. We will continue to monitor and see what the MD would like us to do for the retention problem.
[2020-08-22] MEDS: SERTRALINE 25 MG TABLET. PO SCH (20:42)
[2020-08-22] MEDS: traZODone 100 MG TABLET. PO SCH (20:42)
[2020-08-22] MEDS: MELATONIN 3 MG TABLET PO SCH (20:42)
[2020-08-22] MEDS: MIRTAZAPINE 7.5 MG TABLET. PO SCH (20:42)
--- NOTE | 2020-08-22 21:34 | PDOC ---
Exam Note: Manish Note: Please also refer to the separate dictated note~for this date of service dictated separately.~Patient seen individually. Discussed the patient with Nursing staff reviewed the chart.~Reviewed interim history and current functioning. Reviewed vital signs,~Labs/ Radiology~and current medications noted below. Continue current treatment with the changes noted in the dictated addendum note Assessment: Vital Signs/I&O: Vital Signs Date Time Temp Pulse Resp B/P (MAP) Pulse Ox O2 Delivery O2 Flow Rate FiO2 08/22/20 16:25 98.0 90 20 104/70 (81) 94 Room Air I & O 08/21/20 08/21/20 08/22/20 15:00 23:00 07:00 Intake Total 480 ml 360 ml Output Total 700 ml Balance 480 ml -340 ml Current Medications: Meds: Current Medications Medications (Trade) Dose Ordered Sig/Sonia Route PRN Reason Start Time Stop Time Status Last Admin Dose Admin Acetaminophen (Tylenol) 650 mg PRN Q6HRS PRN PO MILD PAIN / TEMP > 100.3'F 08/01/20 15:45 08/21/20 20:32 Multi-Ingredient Ointment (Analgesic [place]) 1 olu PRN QID PRN TP MUSCLE PAIN 08/01/20 15:45 08/10/20 08:39 Al Hydroxide/Mg Hydroxide (Mylanta Plus Xs) 15 ml PRN AFTMEALHC PRN PO DYSPEPSIA 08/01/20 15:45 Magnesium Hydroxide (Milk Of Magnesia) 2,400 mg PRN QHS PRN PO CONSTIPATION 08/01/20 15:45 08/06/20 06:06 Fenofibrate (Tricor) 48 mg DAILY PO 08/02/20 09:00 08/22/20 09:39 Fluticasone Propionate (Flonase) 2 spray DAILY NS 08/02/20 09:00 08/22/20 09:40 Metoprolol Succinate (Toprol Xl) 50 mg DAILY PO 08/02/20 09:00 08/22/20 09:39 Mirtazapine (Remeron) 15 mg QHS PO 08/01/20 21:00 08/03/20 18:01 DC 08/02/20 20:59 Olanzapine (ZyPREXA ZYDIS) 5 mg DAILY PO 08/02/20 09:00 08/03/20 18:01 DC 08/03/20 09:47 Pantoprazole Sodium (Protonix) 40 mg DAILY PO 08/02/20 09:00 08/22/20 09:40 Non-Formulary Medication (Lutein ) 20 mg DAILY PO 08/02/20 09:00 UNV Multivitamins/ Calcium (Thera-M Plus) 1 tab DAILY PO 08/02/20 09:00 08/22/20 09:40 Olanzapine (ZyPREXA ZYDIS) 2.5 mg PRN Q2HR PRN PO PSYCHOSIS 08/01/20 23:30 08/06/20 13:43 DC 08/06/20 09:53 Trazodone HCl (Desyrel) 50 mg PRN QHS PRN PO INSOMNIA, MAY REPEAT X2 08/01/20 23:30 08/18/20 00:09 Melatonin (Melatonin) 3 mg QHS PO 08/02/20 21:00 08/22/20 20:42 Tamsulosin HCl (Flomax) 0.4 mg DAILY PO 08/03/20 09:00 08/03/20 12:33 DC 08/03/20 09:47 Tamsulosin HCl (Flomax) 0.4 mg 1X ONCE PO 08/02/20 21:00 08/02/20 21:01 DC 08/02/20 21:01 Tamsulosin HCl (Flomax) 0.4 mg BID PO 08/03/20 14:00 08/22/20 20:42 Risperidone (RisperDAL) 0.25 mg QHS PO 08/03/20 21:00 08/11/20 18:23 DC 08/10/20 20:07 Trazodone HCl (Desyrel) 100 mg QHS PO 08/05/20 21:00 08/22/20 20:42 Levofloxacin (Levaquin) 250 mg DAILY PO 08/06/20 11:30 08/10/20 23:59 DC 08/10/20 08:38 Olanzapine (ZyPREXA ZYDIS) 5 mg PRN Q2HR PRN PO PSYCHOSIS 08/06/20 13:45 08/22/20 14:12 Lorazepam (Ativan) 1 mg 1X ONCE PO 08/06/20 18:15 08/06/20 18:22 DC Lorazepam (Ativan) 1 mg 1X PRN PO ANXIETY / AGITATION 08/06/20 18:30 08/07/20 00:00 DC 08/06/20 18:52 Lactobacillus Rhamnosus (Culturelle) 1 cap BID PO 08/07/20 21:00 08/22/20 20:42 Sertraline HCl (Zoloft) 25 mg QHS PO 08/10/20 21:00 08/19/20 17:06 DC 08/18/20 20:41 Risperidone (RisperDAL) 0.5 mg QHS PO 08/11/20 21:00 08/19/20 17:06 DC 08/18/20 20:41 Cephalexin HCl (Keflex) 500 mg TID PO 08/17/20 14:00 08/24/20 13:59 08/22/20 20:42 Sertraline HCl (Zoloft) 50 mg QHS PO 08/19/20 21:00 08/22/20 20:42 Risperidone (RisperDAL) 0.25 mg 0900,1300,1700 PO 08/20/20 09:00 08/19/20 17:11 DC Risperidone (RisperDAL) 0.25 mg 0900,1300,1700 PO 08/19/20 17:15 08/22/20 17:00 Mirtazapine (Remeron) 7.5 mg QHS PO 08/20/20 21:00 08/22/20 20:42 I have reviewed the current psychotropics carefully including drug interactions. Risk benefit ratio favors no change other than as noted in my dictated progress note. Diagnosis: Problems: (1) Psychotic disorder (2) Impulse control disorder, unspecified (3) Vascular dementia with delusions (4) Anxiety disorder, unspecified (5) Vascular dementia with depression (6) Major neurocognitive disorder PRABHAKAR MOLINA MD Aug 22, 2020 21:33
--- NOTE | 2020-08-22 21:55 | NUR ---
Pt up in hallway, propelling self in WC. Pleasantly confused, interacting with peers appropriately. Pt cooperative with meds and assessment. Pt assisted with HS cares, toileted x1 assist and pt did void independently. Post-void bladder scan showed <100 mL urine retained. Will monitor overnight and reattempt to place Hernandez if pt continues to retain. Pt's Halina called to check on pt, updated on status.
[2020-08-23 06:07] VITALS: BP 125/80
--- NOTE | 2020-08-23 06:26 | NUR ---
Pt has not voided overnight. Assisted x2 to toilet, pt sat for several minutes but unable to void. Bladder scan revealed >475mL urine in bladder. Attempted to place Hernandez, but coude catheter was unable to pass urethral opening due to significant swelling. Straight cath performed with return of 350mL clear, yellow urine.
[2020-08-23] MEDS: METOPROLOL SUCC 24HR ER 50 MG TAB.ER.24H. PO SCH (09:17)
[2020-08-23] MEDS: CEPHALEXIN 250 MG CAPSULE PO SCH ×3 (09:17→20:05)
[2020-08-23] MEDS: TAMSULOSIN 0.4 MG CAP.ER.24H. PO SCH ×2 (09:17→20:04)
[2020-08-23] MEDS: risperiDONE 0.25 MG TABLET. PO SCH ×3 (09:17→16:47)
[2020-08-23] MEDS: MULTIVITAMIN with MINERAL TABLET. PO SCH (09:17)
[2020-08-23] MEDS: LACTOBACILLUS RHAMNOSUS GG 1 CAPSULE. PO SCH ×2 (09:17→20:05)
[2020-08-23] MEDS: PANTOPRAZOLE 40 MG TABLET. PO SCH (09:17)
[2020-08-23] MEDS: FENOFIBRATE NANOCRYSTALLIZED 48 MG TABLET PO SCH (09:19)
[2020-08-23] MEDS: FLUTICASONE 50MCG/NASAL SPRAY 16GM BOTTLE. NS SCH (09:19)
--- NOTE | 2020-08-23 15:45 | NUR ---
ORDER TO INSERT AND MAINTAIN BLACKMAN OBTAINED. 12 F CATHETER PLACED WITH 5 ML BALLOON. PATIENT TOLERATED PROCEDURE WELL.
[2020-08-23 17:55] VITALS: BP 110/73
[2020-08-23] MEDS: MELATONIN 3 MG TABLET PO SCH (20:04)
[2020-08-23] MEDS: SERTRALINE 25 MG TABLET. PO SCH (20:05)
[2020-08-23] MEDS: traZODone 100 MG TABLET. PO SCH (20:05)
[2020-08-23] MEDS: MIRTAZAPINE 7.5 MG TABLET. PO SCH (20:05)
--- NOTE | 2020-08-23 20:58 | PDOC ---
Exam Note: Manish Note: Please also refer to the separate dictated note~for this date of service dictated separately.~Patient seen individually. Discussed the patient with Nursing staff reviewed the chart.~Reviewed interim history and current functioning. Reviewed vital signs,~Labs/ Radiology~and current medications noted below. Continue current treatment with the changes noted in the dictated addendum note Assessment: Vital Signs/I&O: Vital Signs Date Time Temp Pulse Resp B/P (MAP) Pulse Ox O2 Delivery O2 Flow Rate FiO2 08/23/20 17:55 97.3 78 18 110/73 (85) 94 08/23/20 06:07 Room Air I & O 08/22/20 08/22/20 08/23/20 14:59 22:59 06:59 Intake Total 600 ml 360 ml Balance 600 ml 360 ml Current Medications: Meds: Current Medications Medications (Trade) Dose Ordered Sig/Sonia Route PRN Reason Start Time Stop Time Status Last Admin Dose Admin Acetaminophen (Tylenol) 650 mg PRN Q6HRS PRN PO MILD PAIN / TEMP > 100.3'F 08/01/20 15:45 08/21/20 20:32 Multi-Ingredient Ointment (Analgesic [employer]) 1 olu PRN QID PRN TP MUSCLE PAIN 08/01/20 15:45 08/10/20 08:39 Al Hydroxide/Mg Hydroxide (Mylanta Plus Xs) 15 ml PRN AFTMEALHC PRN PO DYSPEPSIA 08/01/20 15:45 Magnesium Hydroxide (Milk Of Magnesia) 2,400 mg PRN QHS PRN PO CONSTIPATION 08/01/20 15:45 08/06/20 06:06 Fenofibrate (Tricor) 48 mg DAILY PO 08/02/20 09:00 08/23/20 09:19 Fluticasone Propionate (Flonase) 2 spray DAILY NS 08/02/20 09:00 08/23/20 09:19 Metoprolol Succinate (Toprol Xl) 50 mg DAILY PO 08/02/20 09:00 08/23/20 09:17 Mirtazapine (Remeron) 15 mg QHS PO 08/01/20 21:00 08/03/20 18:01 DC 08/02/20 20:59 Olanzapine (ZyPREXA ZYDIS) 5 mg DAILY PO 08/02/20 09:00 08/03/20 18:01 DC 08/03/20 09:47 Pantoprazole Sodium (Protonix) 40 mg DAILY PO 08/02/20 09:00 08/23/20 09:17 Non-Formulary Medication (Lutein ) 20 mg DAILY PO 08/02/20 09:00 UNV Multivitamins/ Calcium (Thera-M Plus) 1 tab DAILY PO 08/02/20 09:00 08/23/20 09:17 Olanzapine (ZyPREXA ZYDIS) 2.5 mg PRN Q2HR PRN PO PSYCHOSIS 08/01/20 23:30 08/06/20 13:43 DC 08/06/20 09:53 Trazodone HCl (Desyrel) 50 mg PRN QHS PRN PO INSOMNIA, MAY REPEAT X2 08/01/20 23:30 08/18/20 00:09 Melatonin (Melatonin) 3 mg QHS PO 08/02/20 21:00 08/23/20 20:04 Tamsulosin HCl (Flomax) 0.4 mg DAILY PO 08/03/20 09:00 08/03/20 12:33 DC 08/03/20 09:47 Tamsulosin HCl (Flomax) 0.4 mg 1X ONCE PO 08/02/20 21:00 08/02/20 21:01 DC 08/02/20 21:01 Tamsulosin HCl (Flomax) 0.4 mg BID PO 08/03/20 14:00 08/23/20 20:04 Risperidone (RisperDAL) 0.25 mg QHS PO 08/03/20 21:00 08/11/20 18:23 DC 08/10/20 20:07 Trazodone HCl (Desyrel) 100 mg QHS PO 08/05/20 21:00 08/23/20 20:05 Levofloxacin (Levaquin) 250 mg DAILY PO 08/06/20 11:30 08/10/20 23:59 DC 08/10/20 08:38 Olanzapine (ZyPREXA ZYDIS) 5 mg PRN Q2HR PRN PO PSYCHOSIS 08/06/20 13:45 08/22/20 14:12 Lorazepam (Ativan) 1 mg 1X ONCE PO 08/06/20 18:15 08/06/20 18:22 DC Lorazepam (Ativan) 1 mg 1X PRN PO ANXIETY / AGITATION 08/06/20 18:30 08/07/20 00:00 DC 08/06/20 18:52 Lactobacillus Rhamnosus (Culturelle) 1 cap BID PO 08/07/20 21:00 08/23/20 20:05 Sertraline HCl (Zoloft) 25 mg QHS PO 08/10/20 21:00 08/19/20 17:06 DC 08/18/20 20:41 Risperidone (RisperDAL) 0.5 mg QHS PO 08/11/20 21:00 08/19/20 17:06 DC 08/18/20 20:41 Cephalexin HCl (Keflex) 500 mg TID PO 08/17/20 14:00 08/24/20 13:59 08/23/20 20:05 Sertraline HCl (Zoloft) 50 mg QHS PO 08/19/20 21:00 08/23/20 20:05 Risperidone (RisperDAL) 0.25 mg 0900,1300,1700 PO 08/20/20 09:00 08/19/20 17:11 DC Risperidone (RisperDAL) 0.25 mg 0900,1300,1700 PO 08/19/20 17:15 08/23/20 16:47 Mirtazapine (Remeron) 7.5 mg QHS PO 08/20/20 21:00 08/23/20 20:05 I have reviewed the current psychotropics carefully including drug interactions. Risk benefit ratio favors no change other than as noted in my dictated progress note. Diagnosis: Problems: (1) Impulse control disorder, unspecified (2) Vascular dementia with delusions (3) Anxiety disorder, unspecified (4) Vascular dementia with depression (5) Major neurocognitive disorder PRABHAKAR MOLINA MD Aug 23, 2020 20:58
--- NOTE | 2020-08-23 23:58 | NUR ---
Nursing Note: Pt laying in bed on assessment, pulling on catheter. Pt educated on importance of catheter and that it will cause trauma if he attempted to remove it. Pt agreeable and pleasant with staff. Pt cooperative and compliant with medications and assessment.
[2020-08-24 06:26] VITALS: BP 125/74
[2020-08-24] MEDS: FLUTICASONE 50MCG/NASAL SPRAY 16GM BOTTLE. NS SCH (09:00)
[2020-08-24] MEDS: FENOFIBRATE NANOCRYSTALLIZED 48 MG TABLET PO SCH (09:00)
--- NOTE | 2020-08-24 09:06 | PDOC ---
Exam Note: Manish Note: This note is a late entry for 08/22/2020 covers elements not covered in my initial note. Subjective: The patient was seen face to face in the evening of 08/22/2020 with Roselyn ULLOA. Discussed with nursing staff, reviewed the chart. He slept just 4 hours previous night. The patient slept in the morning till about 10 a.m., less irritable. He remains on Keflex for UTI. We will defer to Dr. Traylor whether he needs the Hernandez replaced. Screaming and agitation is better even while catheter was being used. Review of Systems: No CV, pulmonary, eye, ENT system symptoms on review. Reliability poor. Mental Status Exam: The patient is oriented to himself and at times situation. Speech is coherent. Abstraction is fair. Computation is impaired. Language function is intact. Mood and affect remains somewhat anxious, labile. Laboratory Data: Reviewed. Impression: Major neurocognitive disorder Alzheimer vascular with delusion, depression, behavioral disturbance. Anxiety disorder unspecified. Impulse control disorder. Plan: No change from initial note. Assessment: Vital Signs/I&O: Vital Signs Date Time Temp Pulse Resp B/P (MAP) Pulse Ox O2 Delivery O2 Flow Rate FiO2 08/24/20 06:26 98.0 83 20 125/74 (91) 94 Room Air I & O 08/23/20 08/23/20 08/24/20 15:00 23:00 07:00 Intake Total 600 ml 480 ml 100 ml Output Total 600 ml Balance 600 ml -120 ml 100 ml Current Medications: Meds: Current Medications Medications (Trade) Dose Ordered Sig/Sonia Route PRN Reason Start Time Stop Time Status Last Admin Dose Admin Acetaminophen (Tylenol) 650 mg PRN Q6HRS PRN PO MILD PAIN / TEMP > 100.3'F 08/01/20 15:45 08/21/20 20:32 Multi-Ingredient Ointment (Analgesic [place]) 1 olu PRN QID PRN TP MUSCLE PAIN 08/01/20 15:45 08/10/20 08:39 Al Hydroxide/Mg Hydroxide (Mylanta Plus Xs) 15 ml PRN AFTMEALHC PRN PO DYSPEPSIA 08/01/20 15:45 Magnesium Hydroxide (Milk Of Magnesia) 2,400 mg PRN QHS PRN PO CONSTIPATION 08/01/20 15:45 08/06/20 06:06 Fenofibrate (Tricor) 48 mg DAILY PO 08/02/20 09:00 08/23/20 09:19 Fluticasone Propionate (Flonase) 2 spray DAILY NS 08/02/20 09:00 08/23/20 09:19 Metoprolol Succinate (Toprol Xl) 50 mg DAILY PO 08/02/20 09:00 08/23/20 09:17 Mirtazapine (Remeron) 15 mg QHS PO 08/01/20 21:00 08/03/20 18:01 DC 08/02/20 20:59 Olanzapine (ZyPREXA ZYDIS) 5 mg DAILY PO 08/02/20 09:00 08/03/20 18:01 DC 08/03/20 09:47 Pantoprazole Sodium (Protonix) 40 mg DAILY PO 08/02/20 09:00 08/23/20 09:17 Non-Formulary Medication (Lutein ) 20 mg DAILY PO 08/02/20 09:00 UNV Multivitamins/ Calcium (Thera-M Plus) 1 tab DAILY PO 08/02/20 09:00 08/23/20 09:17 Olanzapine (ZyPREXA ZYDIS) 2.5 mg PRN Q2HR PRN PO PSYCHOSIS 08/01/20 23:30 08/06/20 13:43 DC 08/06/20 09:53 Trazodone HCl (Desyrel) 50 mg PRN QHS PRN PO INSOMNIA, MAY REPEAT X2 08/01/20 23:30 08/18/20 00:09 Melatonin (Melatonin) 3 mg QHS PO 08/02/20 21:00 08/23/20 20:04 Tamsulosin HCl (Flomax) 0.4 mg DAILY PO 08/03/20 09:00 08/03/20 12:33 DC 08/03/20 09:47 Tamsulosin HCl (Flomax) 0.4 mg 1X ONCE PO 08/02/20 21:00 08/02/20 21:01 DC 08/02/20 21:01 Tamsulosin HCl (Flomax) 0.4 mg BID PO 08/03/20 14:00 08/23/20 20:04 Risperidone (RisperDAL) 0.25 mg QHS PO 08/03/20 21:00 08/11/20 18:23 DC 08/10/20 20:07 Trazodone HCl (Desyrel) 100 mg QHS PO 08/05/20 21:00 08/23/20 20:05 Levofloxacin (Levaquin) 250 mg DAILY PO 08/06/20 11:30 08/10/20 23:59 DC 08/10/20 08:38 Olanzapine (ZyPREXA ZYDIS) 5 mg PRN Q2HR PRN PO PSYCHOSIS 08/06/20 13:45 08/22/20 14:12 Lorazepam (Ativan) 1 mg 1X ONCE PO 08/06/20 18:15 08/06/20 18:22 DC Lorazepam (Ativan) 1 mg 1X PRN PO ANXIETY / AGITATION 08/06/20 18:30 08/07/20 00:00 DC 08/06/20 18:52 Lactobacillus Rhamnosus (Culturelle) 1 cap BID PO 08/07/20 21:00 08/23/20 20:05 Sertraline HCl (Zoloft) 25 mg QHS PO 08/10/20 21:00 08/19/20 17:06 DC 08/18/20 20:41 Risperidone (RisperDAL) 0.5 mg QHS PO 08/11/20 21:00 08/19/20 17:06 DC 08/18/20 20:41 Cephalexin HCl (Keflex) 500 mg TID PO 08/17/20 14:00 08/24/20 13:59 08/23/20 20:05 Sertraline HCl (Zoloft) 50 mg QHS PO 08/19/20 21:00 08/23/20 20:05 Risperidone (RisperDAL) 0.25 mg 0900,1300,1700 PO 08/20/20 09:00 08/19/20 17:11 DC Risperidone (RisperDAL) 0.25 mg 0900,1300,1700 PO 08/19/20 17:15 08/23/20 16:47 Mirtazapine (Remeron) 7.5 mg QHS PO 08/20/20 21:00 08/23/20 20:05 I have reviewed the current psychotropics carefully including drug interactions. Risk benefit ratio favors no change other than as noted in my dictated progress note. Diagnosis: Problems: (1) Psychotic disorder (2) Impulse control disorder, unspecified (3) Vascular dementia with delusions (4) Anxiety disorder, unspecified (5) Vascular dementia with depression (6) Major neurocognitive disorder PRABHAKAR MOLINA MD Aug 24, 2020 09:06
--- NOTE | 2020-08-24 09:21 | PDOC ---
Exam Note: Manish Note: This note is a late entry for 08/23/2020 covers elements not covered in my initial note. Subjective: The patient was seen face to face in the evening of 08/23/2020 with Mihaela ULLOA. Discussed with nursing staff, reviewed the chart. He slept just 7 hours previous night. I met with the patient in his bed. He was in his room. He has continued to have some urinary retention. He was started on Hernandez per Dr. Traylor. He remains confused, otherwise, cooperative. Review of Systems: No CV, GI, pulmonary, eye, ENT system symptoms on review. Mental Status Exam: The patient is oriented to himself and at times situation. He is not very verbal, interactive, less paranoid. Attention span is short. Short-term memory is impaired. Speech is coherent. Abstraction is fair. Computation is impaired. Language function is intact. No suicidal or homicidal ideation. Laboratory Data: Reviewed. Impression: Major neurocognitive disorder Alzheimer vascular with delusion, depression, behavioral disturbance. Anxiety disorder unspecified. Impulse control disorder. Plan: No change from initial note. Assessment: Vital Signs/I&O: Vital Signs Date Time Temp Pulse Resp B/P (MAP) Pulse Ox O2 Delivery O2 Flow Rate FiO2 08/24/20 06:26 98.0 83 20 125/74 (91) 94 Room Air I & O 08/23/20 08/23/20 08/24/20 15:00 23:00 07:00 Intake Total 600 ml 480 ml 100 ml Output Total 600 ml Balance 600 ml -120 ml 100 ml Current Medications: Meds: Current Medications Medications (Trade) Dose Ordered Sig/Sonia Route PRN Reason Start Time Stop Time Status Last Admin Dose Admin Acetaminophen (Tylenol) 650 mg PRN Q6HRS PRN PO MILD PAIN / TEMP > 100.3'F 08/01/20 15:45 08/21/20 20:32 Multi-Ingredient Ointment (Analgesic [place]) 1 olu PRN QID PRN TP MUSCLE PAIN 08/01/20 15:45 08/10/20 08:39 Al Hydroxide/Mg Hydroxide (Mylanta Plus Xs) 15 ml PRN AFTMEALHC PRN PO DYSPEPSIA 08/01/20 15:45 Magnesium Hydroxide (Milk Of Magnesia) 2,400 mg PRN QHS PRN PO CONSTIPATION 08/01/20 15:45 08/06/20 06:06 Fenofibrate (Tricor) 48 mg DAILY PO 08/02/20 09:00 08/23/20 09:19 Fluticasone Propionate (Flonase) 2 spray DAILY NS 08/02/20 09:00 08/23/20 09:19 Metoprolol Succinate (Toprol Xl) 50 mg DAILY PO 08/02/20 09:00 08/23/20 09:17 Mirtazapine (Remeron) 15 mg QHS PO 08/01/20 21:00 08/03/20 18:01 DC 08/02/20 20:59 Olanzapine (ZyPREXA ZYDIS) 5 mg DAILY PO 08/02/20 09:00 08/03/20 18:01 DC 08/03/20 09:47 Pantoprazole Sodium (Protonix) 40 mg DAILY PO 08/02/20 09:00 08/23/20 09:17 Non-Formulary Medication (Lutein ) 20 mg DAILY PO 08/02/20 09:00 UNV Multivitamins/ Calcium (Thera-M Plus) 1 tab DAILY PO 08/02/20 09:00 08/23/20 09:17 Olanzapine (ZyPREXA ZYDIS) 2.5 mg PRN Q2HR PRN PO PSYCHOSIS 08/01/20 23:30 08/06/20 13:43 DC 08/06/20 09:53 Trazodone HCl (Desyrel) 50 mg PRN QHS PRN PO INSOMNIA, MAY REPEAT X2 08/01/20 23:30 08/18/20 00:09 Melatonin (Melatonin) 3 mg QHS PO 08/02/20 21:00 08/23/20 20:04 Tamsulosin HCl (Flomax) 0.4 mg DAILY PO 08/03/20 09:00 08/03/20 12:33 DC 08/03/20 09:47 Tamsulosin HCl (Flomax) 0.4 mg 1X ONCE PO 08/02/20 21:00 08/02/20 21:01 DC 08/02/20 21:01 Tamsulosin HCl (Flomax) 0.4 mg BID PO 08/03/20 14:00 08/23/20 20:04 Risperidone (RisperDAL) 0.25 mg QHS PO 08/03/20 21:00 08/11/20 18:23 DC 08/10/20 20:07 Trazodone HCl (Desyrel) 100 mg QHS PO 08/05/20 21:00 08/23/20 20:05 Levofloxacin (Levaquin) 250 mg DAILY PO 08/06/20 11:30 08/10/20 23:59 DC 08/10/20 08:38 Olanzapine (ZyPREXA ZYDIS) 5 mg PRN Q2HR PRN PO PSYCHOSIS 08/06/20 13:45 08/22/20 14:12 Lorazepam (Ativan) 1 mg 1X ONCE PO 08/06/20 18:15 08/06/20 18:22 DC Lorazepam (Ativan) 1 mg 1X PRN PO ANXIETY / AGITATION 08/06/20 18:30 08/07/20 00:00 DC 08/06/20 18:52 Lactobacillus Rhamnosus (Culturelle) 1 cap BID PO 08/07/20 21:00 08/23/20 20:05 Sertraline HCl (Zoloft) 25 mg QHS PO 08/10/20 21:00 08/19/20 17:06 DC 08/18/20 20:41 Risperidone (RisperDAL) 0.5 mg QHS PO 08/11/20 21:00 08/19/20 17:06 DC 08/18/20 20:41 Cephalexin HCl (Keflex) 500 mg TID PO 08/17/20 14:00 08/24/20 13:59 08/23/20 20:05 Sertraline HCl (Zoloft) 50 mg QHS PO 08/19/20 21:00 08/23/20 20:05 Risperidone (RisperDAL) 0.25 mg 0900,1300,1700 PO 08/20/20 09:00 08/19/20 17:11 DC Risperidone (RisperDAL) 0.25 mg 0900,1300,1700 PO 08/19/20 17:15 08/23/20 16:47 Mirtazapine (Remeron) 7.5 mg QHS PO 08/20/20 21:00 08/23/20 20:05 I have reviewed the current psychotropics carefully including drug interactions. Risk benefit ratio favors no change other than as noted in my dictated progress note. Diagnosis: Problems: (1) Psychotic disorder (2) Impulse control disorder, unspecified (3) Vascular dementia with delusions (4) Anxiety disorder, unspecified (5) Vascular dementia with depression (6) Major neurocognitive disorder PRABHAKAR MOLINA MD Aug 24, 2020 09:21
--- NOTE | 2020-08-24 11:08 | NUR ---
WEEKLY ACTIVITY THERAPY NOTE Date of Admission: 08/01 Date of AT Assessment: 08/04 Precipitating behaviors that initiated intake and admission: Patient was reported to be aggressive towards his , noncompliant with medications. Goal aimed:increase stress management/relaxation and socialization skills Initial Goal: Pt will participate in at least one individual or group Activity Therapy session before discharge. Goal changed 08/10: Pt. will participate in at least three Activity Therapy groups before discharge Weekly progress towards goal: 2/3 (08/18- get to know you questions, 08/21- movie) Group participation level: 1 mod, 1 min Weekly highlights: pleasant in group on Friday- joked, answered questions appropriately with get to know you questions Behaviors observed: not around group much this week- usually in his room, not too interested in groups Plan: no change to goal Beneficial adaptations:
[2020-08-24] MEDS: LACTOBACILLUS RHAMNOSUS GG 1 CAPSULE. PO SCH ×2 (11:09→20:11)
[2020-08-24] MEDS: TAMSULOSIN 0.4 MG CAP.ER.24H. PO SCH ×2 (11:09→20:12)
[2020-08-24] MEDS: CEPHALEXIN 250 MG CAPSULE PO SCH (11:09)
[2020-08-24] MEDS: MULTIVITAMIN with MINERAL TABLET. PO SCH (11:09)
[2020-08-24] MEDS: PANTOPRAZOLE 40 MG TABLET. PO SCH (11:09)
[2020-08-24] MEDS: METOPROLOL SUCC 24HR ER 50 MG TAB.ER.24H. PO SCH (11:09)
[2020-08-24] MEDS: risperiDONE 0.25 MG TABLET. PO SCH ×3 (11:10→17:00)
--- NOTE | 2020-08-24 13:15 | NUR ---
SW walked down the hallway and pt stopped SW stating "I'm looking for something delightful". SW smiled and told pt that he found something delightful. Pt belly laughed and stated "I believe that. You are sweet". Pt and SW discussed how pt was doing today and questioned where exactly he needed to be at the moment. SW mentioned that she believed a group was going on and he could go down to the day room. Pt shook SW hand and thanked her for chatting with him. SW will follow up with pt about discharge plans and making those arrangements for the beginning to the middle of next week.
[2020-08-24] MEDS ORDERED: LIDOCAINE 2% TOPICAL JELLY 30GM TUBE. TP PRN (15:00)
[2020-08-24 15:44] VITALS: BP 109/70
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
--- NOTE | 2020-08-24 17:45 | NUR ---
Patient in bed at time of assessment. Patient was helped up and dressed. He sits in wheelchair at bedside table. Patient takes medications whole with no problems. Patient has no complaints and is cooperative. No further concerns at this time.
[2020-08-24] MEDS: SERTRALINE 25 MG TABLET. PO SCH (20:11)
[2020-08-24] MEDS: MELATONIN 3 MG TABLET PO SCH (20:11)
[2020-08-24] MEDS: MIRTAZAPINE 7.5 MG TABLET. PO SCH (20:11)
[2020-08-24] MEDS: traZODone 100 MG TABLET. PO SCH (20:12)
--- NOTE | 2020-08-24 21:14 | PDOC ---
Exam Note: Manish Note: Please also refer to the separate dictated note~for this date of service dictated separately.~Patient seen individually. Discussed the patient with Nursing staff reviewed the chart.~Reviewed interim history and current functioning. Reviewed vital signs,~Labs/ Radiology~and current medications noted below. Continue current treatment with the changes noted in the dictated addendum note Assessment: Vital Signs/I&O: Vital Signs Date Time Temp Pulse Resp B/P (MAP) Pulse Ox O2 Delivery O2 Flow Rate FiO2 08/24/20 15:44 98.6 81 19 109/70 (83) 95 08/24/20 06:26 Room Air I & O 08/23/20 08/23/20 08/24/20 15:00 23:00 07:00 Intake Total 600 ml 480 ml 100 ml Output Total 600 ml Balance 600 ml -120 ml 100 ml Current Medications: Meds: Current Medications Medications (Trade) Dose Ordered Sig/Sonia Route PRN Reason Start Time Stop Time Status Last Admin Dose Admin Acetaminophen (Tylenol) 650 mg PRN Q6HRS PRN PO MILD PAIN / TEMP > 100.3'F 08/01/20 15:45 08/21/20 20:32 Multi-Ingredient Ointment (Analgesic [place]) 1 olu PRN QID PRN TP MUSCLE PAIN 08/01/20 15:45 08/10/20 08:39 Al Hydroxide/Mg Hydroxide (Mylanta Plus Xs) 15 ml PRN AFTMEALHC PRN PO DYSPEPSIA 08/01/20 15:45 Magnesium Hydroxide (Milk Of Magnesia) 2,400 mg PRN QHS PRN PO CONSTIPATION 08/01/20 15:45 08/06/20 06:06 Fenofibrate (Tricor) 48 mg DAILY PO 08/02/20 09:00 08/24/20 09:00 Fluticasone Propionate (Flonase) 2 spray DAILY NS 08/02/20 09:00 08/24/20 09:00 Metoprolol Succinate (Toprol Xl) 50 mg DAILY PO 08/02/20 09:00 08/24/20 11:09 Mirtazapine (Remeron) 15 mg QHS PO 08/01/20 21:00 08/03/20 18:01 DC 08/02/20 20:59 Olanzapine (ZyPREXA ZYDIS) 5 mg DAILY PO 08/02/20 09:00 08/03/20 18:01 DC 08/03/20 09:47 Pantoprazole Sodium (Protonix) 40 mg DAILY PO 08/02/20 09:00 08/24/20 11:09 Non-Formulary Medication (Lutein ) 20 mg DAILY PO 08/02/20 09:00 UNV Multivitamins/ Calcium (Thera-M Plus) 1 tab DAILY PO 08/02/20 09:00 08/24/20 11:09 Olanzapine (ZyPREXA ZYDIS) 2.5 mg PRN Q2HR PRN PO PSYCHOSIS 08/01/20 23:30 08/06/20 13:43 DC 08/06/20 09:53 Trazodone HCl (Desyrel) 50 mg PRN QHS PRN PO INSOMNIA, MAY REPEAT X2 08/01/20 23:30 08/18/20 00:09 Melatonin (Melatonin) 3 mg QHS PO 08/02/20 21:00 08/24/20 20:11 Tamsulosin HCl (Flomax) 0.4 mg DAILY PO 08/03/20 09:00 08/03/20 12:33 DC 08/03/20 09:47 Tamsulosin HCl (Flomax) 0.4 mg 1X ONCE PO 08/02/20 21:00 08/02/20 21:01 DC 08/02/20 21:01 Tamsulosin HCl (Flomax) 0.4 mg BID PO 08/03/20 14:00 08/24/20 20:12 Risperidone (RisperDAL) 0.25 mg QHS PO 08/03/20 21:00 08/11/20 18:23 DC 08/10/20 20:07 Trazodone HCl (Desyrel) 100 mg QHS PO 08/05/20 21:00 08/24/20 20:12 Levofloxacin (Levaquin) 250 mg DAILY PO 08/06/20 11:30 08/10/20 23:59 DC 08/10/20 08:38 Olanzapine (ZyPREXA ZYDIS) 5 mg PRN Q2HR PRN PO PSYCHOSIS 08/06/20 13:45 08/22/20 14:12 Lorazepam (Ativan) 1 mg 1X ONCE PO 08/06/20 18:15 08/06/20 18:22 DC Lorazepam (Ativan) 1 mg 1X PRN PO ANXIETY / AGITATION 08/06/20 18:30 08/07/20 00:00 DC 08/06/20 18:52 Lactobacillus Rhamnosus (Culturelle) 1 cap BID PO 08/07/20 21:00 08/24/20 20:11 Sertraline HCl (Zoloft) 25 mg QHS PO 08/10/20 21:00 08/19/20 17:06 DC 08/18/20 20:41 Risperidone (RisperDAL) 0.5 mg QHS PO 08/11/20 21:00 08/19/20 17:06 DC 08/18/20 20:41 Cephalexin HCl (Keflex) 500 mg TID PO 08/17/20 14:00 08/24/20 13:59 DC 08/24/20 11:09 Sertraline HCl (Zoloft) 50 mg QHS PO 08/19/20 21:00 08/24/20 20:11 Risperidone (RisperDAL) 0.25 mg 0900,1300,1700 PO 08/20/20 09:00 08/19/20 17:11 DC Risperidone (RisperDAL) 0.25 mg 0900,1300,1700 PO 08/19/20 17:15 08/24/20 17:00 Mirtazapine (Remeron) 7.5 mg QHS PO 08/20/20 21:00 08/24/20 20:11 Lidocaine HCl (Xylocaine 2% Topical 30gm Tube) 1 olu PRN DAILY PRN TP PAIN 08/24/20 15:00 I have reviewed the current psychotropics carefully including drug interactions. Risk benefit ratio favors no change other than as noted in my dictated progress note. Diagnosis: Problems: (1) Psychotic disorder (2) Impulse control disorder, unspecified (3) Vascular dementia with delusions (4) Anxiety disorder, unspecified (5) Vascular dementia with depression (6) Major neurocognitive disorder PRABHAKAR MOLINA MD Aug 24, 2020 21:14
--- NOTE | 2020-08-24 22:59 | NUR ---
Nursing Note: Pt withdrawn to room, sitting up in w/c. Pt verbally aggressive towards room mate and the decision was made by staff to put him in another room. Pt cooperative, pleasantly confused, and interactive when I approached. Pt cooperative with assessment and compliant with medications administered whole.
[2020-08-25 06:05] VITALS: BP 123/80
--- NOTE | 2020-08-25 07:48 | PDOC ---
Exam Note: Manish Note: This note is a late entry for 08/24/2020 covers elements not covered in my initial note. Subjective: The patient was seen face to face in the morning of 08/24/2020 for a treatment team meeting with Verna Prakash and Analisa (oncology social work), Lashay Hyatt, activity therapy and Roselyn RN. Discussed with nursing staff, reviewed the chart. He slept just 7-1/2 hours previous night. Staff is trying to replace his Hernandez but that has been difficult. We will defer to Dr. Traylor. Intermittently he has been increasingly agitated. Review of Systems: No CV, GI, pulmonary, eye, ENT system symptoms on review. Mental Status Exam: The patient is oriented to himself. Insight and judgment, recent and remote memory, attention and concentration, fund of knowledge is poor consistent with his diagnosis. Laboratory Data: Reviewed. Impression: Major neurocognitive disorder Alzheimer vascular with delusion, depression, behavioral disturbance. Anxiety disorder unspecified. Impulse control disorder. Plan: No change from initial note. Assessment: Vital Signs/I&O: Vital Signs Date Time Temp Pulse Resp B/P (MAP) Pulse Ox O2 Delivery O2 Flow Rate FiO2 08/25/20 06:05 97.7 87 16 123/80 (94) 94 Room Air I & O 08/24/20 08/24/20 08/25/20 15:00 23:00 07:00 Intake Total 240 ml 240 ml Output Total 950 ml Balance 240 ml 240 ml -950 ml Current Medications: Meds: Current Medications Medications (Trade) Dose Ordered Sig/Sonia Route PRN Reason Start Time Stop Time Status Last Admin Dose Admin Acetaminophen (Tylenol) 650 mg PRN Q6HRS PRN PO MILD PAIN / TEMP > 100.3'F 08/01/20 15:45 08/21/20 20:32 Multi-Ingredient Ointment (Analgesic [place]) 1 olu PRN QID PRN TP MUSCLE PAIN 08/01/20 15:45 08/10/20 08:39 Al Hydroxide/Mg Hydroxide (Mylanta Plus Xs) 15 ml PRN AFTMEALHC PRN PO DYSPEPSIA 08/01/20 15:45 Magnesium Hydroxide (Milk Of Magnesia) 2,400 mg PRN QHS PRN PO CONSTIPATION 08/01/20 15:45 08/06/20 06:06 Fenofibrate (Tricor) 48 mg DAILY PO 08/02/20 09:00 08/24/20 09:00 Fluticasone Propionate (Flonase) 2 spray DAILY NS 08/02/20 09:00 08/24/20 09:00 Metoprolol Succinate (Toprol Xl) 50 mg DAILY PO 08/02/20 09:00 08/24/20 11:09 Mirtazapine (Remeron) 15 mg QHS PO 08/01/20 21:00 08/03/20 18:01 DC 08/02/20 20:59 Olanzapine (ZyPREXA ZYDIS) 5 mg DAILY PO 08/02/20 09:00 08/03/20 18:01 DC 08/03/20 09:47 Pantoprazole Sodium (Protonix) 40 mg DAILY PO 08/02/20 09:00 08/24/20 11:09 Non-Formulary Medication (Lutein ) 20 mg DAILY PO 08/02/20 09:00 UNV Multivitamins/ Calcium (Thera-M Plus) 1 tab DAILY PO 08/02/20 09:00 08/24/20 11:09 Olanzapine (ZyPREXA ZYDIS) 2.5 mg PRN Q2HR PRN PO PSYCHOSIS 08/01/20 23:30 08/06/20 13:43 DC 08/06/20 09:53 Trazodone HCl (Desyrel) 50 mg PRN QHS PRN PO INSOMNIA, MAY REPEAT X2 08/01/20 23:30 08/18/20 00:09 Melatonin (Melatonin) 3 mg QHS PO 08/02/20 21:00 08/24/20 20:11 Tamsulosin HCl (Flomax) 0.4 mg DAILY PO 08/03/20 09:00 08/03/20 12:33 DC 08/03/20 09:47 Tamsulosin HCl (Flomax) 0.4 mg 1X ONCE PO 08/02/20 21:00 08/02/20 21:01 DC 08/02/20 21:01 Tamsulosin HCl (Flomax) 0.4 mg BID PO 08/03/20 14:00 08/24/20 20:12 Risperidone (RisperDAL) 0.25 mg QHS PO 08/03/20 21:00 08/11/20 18:23 DC 08/10/20 20:07 Trazodone HCl (Desyrel) 100 mg QHS PO 08/05/20 21:00 08/24/20 20:12 Levofloxacin (Levaquin) 250 mg DAILY PO 08/06/20 11:30 08/10/20 23:59 DC 08/10/20 08:38 Olanzapine (ZyPREXA ZYDIS) 5 mg PRN Q2HR PRN PO PSYCHOSIS 08/06/20 13:45 08/22/20 14:12 Lorazepam (Ativan) 1 mg 1X ONCE PO 08/06/20 18:15 08/06/20 18:22 DC Lorazepam (Ativan) 1 mg 1X PRN PO ANXIETY / AGITATION 08/06/20 18:30 08/07/20 00:00 DC 08/06/20 18:52 Lactobacillus Rhamnosus (Culturelle) 1 cap BID PO 08/07/20 21:00 08/24/20 20:11 Sertraline HCl (Zoloft) 25 mg QHS PO 08/10/20 21:00 08/19/20 17:06 DC 08/18/20 20:41 Risperidone (RisperDAL) 0.5 mg QHS PO 08/11/20 21:00 08/19/20 17:06 DC 08/18/20 20:41 Cephalexin HCl (Keflex) 500 mg TID PO 08/17/20 14:00 08/24/20 13:59 DC 08/24/20 11:09 Sertraline HCl (Zoloft) 50 mg QHS PO 08/19/20 21:00 08/24/20 20:11 Risperidone (RisperDAL) 0.25 mg 0900,1300,1700 PO 08/20/20 09:00 08/19/20 17:11 DC Risperidone (RisperDAL) 0.25 mg 0900,1300,1700 PO 08/19/20 17:15 08/24/20 17:00 Mirtazapine (Remeron) 7.5 mg QHS PO 08/20/20 21:00 08/24/20 20:11 Lidocaine HCl (Xylocaine 2% Topical 30gm Tube) 1 olu PRN DAILY PRN TP PAIN 08/24/20 15:00 I have reviewed the current psychotropics carefully including drug interactions. Risk benefit ratio favors no change other than as noted in my dictated progress note. Diagnosis: Problems: (1) Psychotic disorder (2) Impulse control disorder, unspecified (3) Vascular dementia with delusions (4) Anxiety disorder, unspecified (5) Vascular dementia with depression (6) Major neurocognitive disorder PRABHAKAR MOLINA MD Aug 25, 2020 07:48
[2020-08-25] MEDS: TAMSULOSIN 0.4 MG CAP.ER.24H. PO SCH ×2 (08:51→19:35)
[2020-08-25] MEDS: risperiDONE 0.25 MG TABLET. PO SCH ×3 (08:51→16:47)
[2020-08-25] MEDS: FLUTICASONE 50MCG/NASAL SPRAY 16GM BOTTLE. NS SCH (08:51)
[2020-08-25] MEDS: LACTOBACILLUS RHAMNOSUS GG 1 CAPSULE. PO SCH ×2 (08:51→19:35)
[2020-08-25] MEDS: MULTIVITAMIN with MINERAL TABLET. PO SCH (08:51)
[2020-08-25] MEDS: METOPROLOL SUCC 24HR ER 50 MG TAB.ER.24H. PO SCH (08:51)
[2020-08-25] MEDS: PANTOPRAZOLE 40 MG TABLET. PO SCH (08:51)
[2020-08-25] MEDS: FENOFIBRATE NANOCRYSTALLIZED 48 MG TABLET PO SCH (08:51)
--- NOTE | 2020-08-25 13:59 | NUR ---
Patient laying in bed at time of assessment. Finished eating breakfast, he was sitting up in bed to eat today. Patient is cooperative and calm but irritable and when he gets frustrated not being able to stand up right away as he wanted he starts to yell at me and says I am hurting him. Patient is alert but confused and forgetful. Was able to get patient to stand up and walk with me to the door and he then became tired and was panicking so he sat in the wheelchair and will wait for PT to work with him some more with walking and building strength. No further concerns or complaints at this time.
[2020-08-25 16:12] VITALS: BP 111/76
[2020-08-25] MEDS: MELATONIN 3 MG TABLET PO SCH (19:35)
[2020-08-25] MEDS: MIRTAZAPINE 7.5 MG TABLET. PO SCH (19:35)
[2020-08-25] MEDS: traZODone 100 MG TABLET. PO SCH (19:35)
[2020-08-25] MEDS: SERTRALINE 25 MG TABLET. PO SCH (19:35)
--- NOTE | 2020-08-25 20:58 | NUR ---
Nursing Note: Pt sitting up in w/c in the hallway at shift change. Pt has been calm, pleasant, and interactive this evening. Pt cooperative with assessment and compliant with medications administered whole. No agitation or aggression noted thus far this shift.
--- NOTE | 2020-08-25 21:07 | PDOC ---
Exam Note: Manish Note: Please also refer to the separate dictated note~for this date of service dictated separately.~Patient seen individually. Discussed the patient with Nursing staff reviewed the chart.~Reviewed interim history and current functioning. Reviewed vital signs,~Labs/ Radiology~and current medications noted below. Continue current treatment with the changes noted in the dictated addendum note Assessment: Vital Signs/I&O: Vital Signs Date Time Temp Pulse Resp B/P (MAP) Pulse Ox O2 Delivery O2 Flow Rate FiO2 08/25/20 16:12 98.1 91 20 111/76 (88) 95 Room Air I & O 08/24/20 08/24/20 08/25/20 15:00 23:00 07:00 Intake Total 240 ml 240 ml Output Total 950 ml Balance 240 ml 240 ml -950 ml Current Medications: Meds: Current Medications Medications (Trade) Dose Ordered Sig/Sonia Route PRN Reason Start Time Stop Time Status Last Admin Dose Admin Acetaminophen (Tylenol) 650 mg PRN Q6HRS PRN PO MILD PAIN / TEMP > 100.3'F 08/01/20 15:45 08/21/20 20:32 Multi-Ingredient Ointment (Analgesic [place]) 1 olu PRN QID PRN TP MUSCLE PAIN 08/01/20 15:45 08/10/20 08:39 Al Hydroxide/Mg Hydroxide (Mylanta Plus Xs) 15 ml PRN AFTMEALHC PRN PO DYSPEPSIA 08/01/20 15:45 Magnesium Hydroxide (Milk Of Magnesia) 2,400 mg PRN QHS PRN PO CONSTIPATION 08/01/20 15:45 08/06/20 06:06 Fenofibrate (Tricor) 48 mg DAILY PO 08/02/20 09:00 08/25/20 08:51 Fluticasone Propionate (Flonase) 2 spray DAILY NS 08/02/20 09:00 08/25/20 08:51 Metoprolol Succinate (Toprol Xl) 50 mg DAILY PO 08/02/20 09:00 08/25/20 08:51 Mirtazapine (Remeron) 15 mg QHS PO 08/01/20 21:00 08/03/20 18:01 DC 08/02/20 20:59 Olanzapine (ZyPREXA ZYDIS) 5 mg DAILY PO 08/02/20 09:00 08/03/20 18:01 DC 08/03/20 09:47 Pantoprazole Sodium (Protonix) 40 mg DAILY PO 08/02/20 09:00 08/25/20 08:51 Non-Formulary Medication (Lutein ) 20 mg DAILY PO 08/02/20 09:00 UNV Multivitamins/ Calcium (Thera-M Plus) 1 tab DAILY PO 08/02/20 09:00 08/25/20 08:51 Olanzapine (ZyPREXA ZYDIS) 2.5 mg PRN Q2HR PRN PO PSYCHOSIS 08/01/20 23:30 08/06/20 13:43 DC 08/06/20 09:53 Trazodone HCl (Desyrel) 50 mg PRN QHS PRN PO INSOMNIA, MAY REPEAT X2 08/01/20 23:30 08/18/20 00:09 Melatonin (Melatonin) 3 mg QHS PO 08/02/20 21:00 08/25/20 19:35 Tamsulosin HCl (Flomax) 0.4 mg DAILY PO 08/03/20 09:00 08/03/20 12:33 DC 08/03/20 09:47 Tamsulosin HCl (Flomax) 0.4 mg 1X ONCE PO 08/02/20 21:00 08/02/20 21:01 DC 08/02/20 21:01 Tamsulosin HCl (Flomax) 0.4 mg BID PO 08/03/20 14:00 08/25/20 19:35 Risperidone (RisperDAL) 0.25 mg QHS PO 08/03/20 21:00 08/11/20 18:23 DC 08/10/20 20:07 Trazodone HCl (Desyrel) 100 mg QHS PO 08/05/20 21:00 08/25/20 19:35 Levofloxacin (Levaquin) 250 mg DAILY PO 08/06/20 11:30 08/10/20 23:59 DC 08/10/20 08:38 Olanzapine (ZyPREXA ZYDIS) 5 mg PRN Q2HR PRN PO PSYCHOSIS 08/06/20 13:45 08/22/20 14:12 Lorazepam (Ativan) 1 mg 1X ONCE PO 08/06/20 18:15 08/06/20 18:22 DC Lorazepam (Ativan) 1 mg 1X PRN PO ANXIETY / AGITATION 08/06/20 18:30 08/07/20 00:00 DC 08/06/20 18:52 Lactobacillus Rhamnosus (Culturelle) 1 cap BID PO 08/07/20 21:00 08/25/20 19:35 Sertraline HCl (Zoloft) 25 mg QHS PO 08/10/20 21:00 08/19/20 17:06 DC 08/18/20 20:41 Risperidone (RisperDAL) 0.5 mg QHS PO 08/11/20 21:00 08/19/20 17:06 DC 08/18/20 20:41 Cephalexin HCl (Keflex) 500 mg TID PO 08/17/20 14:00 08/24/20 13:59 DC 08/24/20 11:09 Sertraline HCl (Zoloft) 50 mg QHS PO 08/19/20 21:00 08/25/20 19:35 Risperidone (RisperDAL) 0.25 mg 0900,1300,1700 PO 08/20/20 09:00 08/19/20 17:11 DC Risperidone (RisperDAL) 0.25 mg 0900,1300,1700 PO 08/19/20 17:15 08/25/20 16:47 Mirtazapine (Remeron) 7.5 mg QHS PO 08/20/20 21:00 08/25/20 19:35 Lidocaine HCl (Xylocaine 2% Topical 30gm Tube) 1 olu PRN DAILY PRN TP PAIN 08/24/20 15:00 I have reviewed the current psychotropics carefully including drug interactions. Risk benefit ratio favors no change other than as noted in my dictated progress note. Diagnosis: Problems: (1) Impulse control disorder, unspecified (2) Vascular dementia with delusions (3) Anxiety disorder, unspecified (4) Vascular dementia with depression (5) Major neurocognitive disorder PRABHAKAR OMLINA MD Aug 25, 2020 21:07
[2020-08-26 06:14] VITALS: BP 120/79
[2020-08-26] MEDS: FENOFIBRATE NANOCRYSTALLIZED 48 MG TABLET PO SCH (07:51)
[2020-08-26] MEDS: PANTOPRAZOLE 40 MG TABLET. PO SCH (07:51)
[2020-08-26] MEDS: TAMSULOSIN 0.4 MG CAP.ER.24H. PO SCH ×2 (07:51→19:20)
[2020-08-26] MEDS: risperiDONE 0.25 MG TABLET. PO SCH ×3 (07:51→18:11)
[2020-08-26] MEDS: FLUTICASONE 50MCG/NASAL SPRAY 16GM BOTTLE. NS SCH (07:51)
[2020-08-26] MEDS: MULTIVITAMIN with MINERAL TABLET. PO SCH (07:51)
[2020-08-26] MEDS: LACTOBACILLUS RHAMNOSUS GG 1 CAPSULE. PO SCH ×2 (07:51→19:20)
[2020-08-26] MEDS: METOPROLOL SUCC 24HR ER 50 MG TAB.ER.24H. PO SCH (07:52)
[2020-08-26 10:51] LABS: BASO % 1 % (0-3); EOS # 0.2 x10^3/uL (0.0-0.7); EOS % 3 % (0-3); HEMATOCRIT 42.9 % (39.0-53.0); HEMOGLOBIN 14.2 g/dL (13.0-17.5); LYMPH # 1.3 x10^3/uL (1.0-4.8); LYMPH % 18 % (24-48); MEAN CORPUSCULAR HEMOGLOBIN 30 pg (25-35); MEAN CORPUSCULAR HGB CONC 33 g/dL (31-37); MEAN CORPUSCULAR VOLUME 92 fL (79-100); MONO # 0.6 x10^3/uL (0.0-1.1); MONO % 9 % (0-9); NEUT # 4.9 x10^3uL (1.8-7.7); NEUT % 70 % (31-73); PLATELET COUNT 279 x10^3/uL (140-400); RED BLOOD COUNT 4.68 x10^6/uL (4.30-5.70); RED CELL DISTRIBUTION WIDTH 13.5 % (11.5-14.5); WHITE BLOOD COUNT 7.1 x10^3/uL (4.0-11.0)
[2020-08-26 11:20] LABS: ALBUMIN 2.8 g/dL (3.4-5.0); ALBUMIN/GLOBULIN RATIO 0.8 (1.0-1.7); CALCIUM 8.4 mg/dL (8.5-10.1); CREATININE 1.2 mg/dL (0.7-1.3); GFR 58.9; POTASSIUM 3.7 mmol/L (3.5-5.1); TOTAL BILIRUBIN 0.4 mg/dL (0.2-1.0); TOTAL PROTEIN 6.5 g/dL (6.4-8.2)
--- NOTE | 2020-08-26 14:00 | NUR ---
Pt has been appropriate during shift aside from a brief period where he was risistent to staff assistance during a transfer from bed to w/c. He denies SI/HI/VH/AH/pain. He is alert to self only; he believes is is in [place]. Complaint with medications and assessment. He is appropriate in his interactions with his room mate. Hernandez catheter is patent, clear claudia colored urine noted with some slight sediment. Will pass on to the next shift.
[2020-08-26 15:00] VITALS: BP 108/67
[2020-08-26] MEDS: MIRTAZAPINE 7.5 MG TABLET. PO SCH (19:20)
[2020-08-26] MEDS: traZODone 100 MG TABLET. PO SCH (19:20)
[2020-08-26] MEDS: SERTRALINE 25 MG TABLET. PO SCH (19:20)
[2020-08-26] MEDS: MELATONIN 3 MG TABLET PO SCH (19:20)
--- NOTE | 2020-08-26 21:02 | PDOC ---
Exam Note: Manish Note: Please also refer to the separate dictated note~for this date of service dictated separately.~Patient seen individually. Discussed the patient with Nursing staff reviewed the chart.~Reviewed interim history and current functioning. Reviewed vital signs,~Labs/ Radiology~and current medications noted below. Continue current treatment with the changes noted in the dictated addendum note Assessment: Vital Signs/I&O: Vital Signs Date Time Temp Pulse Resp B/P (MAP) Pulse Ox O2 Delivery O2 Flow Rate FiO2 08/26/20 15:00 97.8 72 18 108/67 (81) 97 08/25/20 16:12 Room Air I & O 08/25/20 08/25/20 08/26/20 15:00 23:00 07:00 Intake Total 720 ml 600 ml Output Total 350 ml 500 ml Balance 720 ml 250 ml -500 ml Labs: Laboratory Tests Test 08/26/20 10:00 White Blood Count 7.1 x10^3/uL (4.0-11.0) Red Blood Count 4.68 x10^6/uL (4.30-5.70) Hemoglobin 14.2 g/dL (13.0-17.5) Hematocrit 42.9 % (39.0-53.0) Mean Corpuscular Volume 92 fL (79-100) Mean Corpuscular Hemoglobin 30 pg (25-35) Mean Corpuscular Hemoglobin Concent 33 g/dL (31-37) Red Cell Distribution Width 13.5 % (11.5-14.5) Platelet Count 279 x10^3/uL (140-400) Neutrophils (%) (Auto) 70 % (31-73) Lymphocytes (%) (Auto) 18 % (24-48) L Monocytes (%) (Auto) 9 % (0-9) Eosinophils (%) (Auto) 3 % (0-3) Basophils (%) (Auto) 1 % (0-3) Neutrophils # (Auto) 4.9 x10^3uL (1.8-7.7) Lymphocytes # (Auto) 1.3 x10^3/uL (1.0-4.8) Monocytes # (Auto) 0.6 x10^3/uL (0.0-1.1) Eosinophils # (Auto) 0.2 x10^3/uL (0.0-0.7) Basophils # (Auto) 0.0 x10^3/uL (0.0-0.2) Sodium Level 141 mmol/L (136-145) Potassium Level 3.7 mmol/L (3.5-5.1) Chloride Level 105 mmol/L (98-107) Carbon Dioxide Level 28 mmol/L (21-32) Anion Gap 8 (6-14) Blood Urea Nitrogen 27 mg/dL (8-26) H Creatinine 1.2 mg/dL (0.7-1.3) Estimated GFR (Cockcroft-Gault) 58.9 BUN/Creatinine Ratio 23 (6-20) H Glucose Level 133 mg/dL (70-99) H Calcium Level 8.4 mg/dL (8.5-10.1) L Total Bilirubin 0.4 mg/dL (0.2-1.0) Aspartate Amino Transferase (AST) 21 U/L (15-37) Alanine Aminotransferase (ALT) 30 U/L (16-63) Alkaline Phosphatase 69 U/L (46-116) Total Protein 6.5 g/dL (6.4-8.2) Albumin 2.8 g/dL (3.4-5.0) L Albumin/Globulin Ratio 0.8 (1.0-1.7) L Current Medications: Meds: Laboratory Tests Test 08/26/20 10:00 White Blood Count 7.1 x10^3/uL Red Blood Count 4.68 x10^6/uL Hemoglobin 14.2 g/dL Hematocrit 42.9 % Mean Corpuscular Volume 92 fL Mean Corpuscular Hemoglobin 30 pg Mean Corpuscular Hemoglobin Concent 33 g/dL Red Cell Distribution Width 13.5 % Platelet Count 279 x10^3/uL Neutrophils (%) (Auto) 70 % Lymphocytes (%) (Auto) 18 % Monocytes (%) (Auto) 9 % Eosinophils (%) (Auto) 3 % Basophils (%) (Auto) 1 % Neutrophils # (Auto) 4.9 x10^3uL Lymphocytes # (Auto) 1.3 x10^3/uL Monocytes # (Auto) 0.6 x10^3/uL Eosinophils # (Auto) 0.2 x10^3/uL Basophils # (Auto) 0.0 x10^3/uL Sodium Level 141 mmol/L Potassium Level 3.7 mmol/L Chloride Level 105 mmol/L Carbon Dioxide Level 28 mmol/L Anion Gap 8 Blood Urea Nitrogen 27 mg/dL Creatinine 1.2 mg/dL Estimated GFR (Cockcroft-Gault) 58.9 BUN/Creatinine Ratio 23 Glucose Level 133 mg/dL Calcium Level 8.4 mg/dL Total Bilirubin 0.4 mg/dL Aspartate Amino Transf (AST/SGOT) 21 U/L Alanine Aminotransferase (ALT/SGPT) 30 U/L Alkaline Phosphatase 69 U/L Total Protein 6.5 g/dL Albumin 2.8 g/dL Albumin/Globulin Ratio 0.8 Current Medications Medications (Trade) Dose Ordered Sig/Sonia Route PRN Reason Start Time Stop Time Status Last Admin Dose Admin Acetaminophen (Tylenol) 650 mg PRN Q6HRS PRN PO MILD PAIN / TEMP > 100.3'F 08/01/20 15:45 08/21/20 20:32 Multi-Ingredient Ointment (Analgesic [place]) 1 olu PRN QID PRN TP MUSCLE PAIN 08/01/20 15:45 08/10/20 08:39 Al Hydroxide/Mg Hydroxide (Mylanta Plus Xs) 15 ml PRN AFTMEALHC PRN PO DYSPEPSIA 08/01/20 15:45 Magnesium Hydroxide (Milk Of Magnesia) 2,400 mg PRN QHS PRN PO CONSTIPATION 08/01/20 15:45 08/06/20 06:06 Fenofibrate (Tricor) 48 mg DAILY PO 08/02/20 09:00 08/26/20 07:51 Fluticasone Propionate (Flonase) 2 spray DAILY NS 08/02/20 09:00 08/26/20 07:51 Metoprolol Succinate (Toprol Xl) 50 mg DAILY PO 08/02/20 09:00 08/26/20 07:52 Mirtazapine (Remeron) 15 mg QHS PO 08/01/20 21:00 08/03/20 18:01 DC 08/02/20 20:59 Olanzapine (ZyPREXA ZYDIS) 5 mg DAILY PO 08/02/20 09:00 08/03/20 18:01 DC 08/03/20 09:47 Pantoprazole Sodium (Protonix) 40 mg DAILY PO 08/02/20 09:00 08/26/20 07:51 Non-Formulary Medication (Lutein ) 20 mg DAILY PO 08/02/20 09:00 UNV Multivitamins/ Calcium (Thera-M Plus) 1 tab DAILY PO 08/02/20 09:00 08/26/20 07:51 Olanzapine (ZyPREXA ZYDIS) 2.5 mg PRN Q2HR PRN PO PSYCHOSIS 08/01/20 23:30 08/06/20 13:43 DC 08/06/20 09:53 Trazodone HCl (Desyrel) 50 mg PRN QHS PRN PO INSOMNIA, MAY REPEAT X2 08/01/20 23:30 08/18/20 00:09 Melatonin (Melatonin) 3 mg QHS PO 08/02/20 21:00 08/26/20 19:20 Tamsulosin HCl (Flomax) 0.4 mg DAILY PO 08/03/20 09:00 08/03/20 12:33 DC 08/03/20 09:47 Tamsulosin HCl (Flomax) 0.4 mg 1X ONCE PO 08/02/20 21:00 08/02/20 21:01 DC 08/02/20 21:01 Tamsulosin HCl (Flomax) 0.4 mg BID PO 08/03/20 14:00 08/26/20 19:20 Risperidone (RisperDAL) 0.25 mg QHS PO 08/03/20 21:00 08/11/20 18:23 DC 08/10/20 20:07 Trazodone HCl (Desyrel) 100 mg QHS PO 08/05/20 21:00 08/26/20 19:20 Levofloxacin (Levaquin) 250 mg DAILY PO 08/06/20 11:30 08/10/20 23:59 DC 08/10/20 08:38 Olanzapine (ZyPREXA ZYDIS) 5 mg PRN Q2HR PRN PO PSYCHOSIS 08/06/20 13:45 08/26/20 19:20 Lorazepam (Ativan) 1 mg 1X ONCE PO 08/06/20 18:15 08/06/20 18:22 DC Lorazepam (Ativan) 1 mg 1X PRN PO ANXIETY / AGITATION 08/06/20 18:30 08/07/20 00:00 DC 08/06/20 18:52 Lactobacillus Rhamnosus (Culturelle) 1 cap BID PO 08/07/20 21:00 08/26/20 19:20 Sertraline HCl (Zoloft) 25 mg QHS PO 08/10/20 21:00 08/19/20 17:06 DC 08/18/20 20:41 Risperidone (RisperDAL) 0.5 mg QHS PO 08/11/20 21:00 08/19/20 17:06 DC 08/18/20 20:41 Cephalexin HCl (Keflex) 500 mg TID PO 08/17/20 14:00 08/24/20 13:59 DC 08/24/20 11:09 Sertraline HCl (Zoloft) 50 mg QHS PO 08/19/20 21:00 08/26/20 19:20 Risperidone (RisperDAL) 0.25 mg 0900,1300,1700 PO 08/20/20 09:00 08/19/20 17:11 DC Risperidone (RisperDAL) 0.25 mg 0900,1300,1700 PO 08/19/20 17:15 08/26/20 18:11 Mirtazapine (Remeron) 7.5 mg QHS PO 08/20/20 21:00 08/26/20 19:20 Lidocaine HCl (Xylocaine 2% Topical 30gm Tube) 1 olu PRN DAILY PRN TP PAIN 08/24/20 15:00 I have reviewed the current psychotropics carefully including drug interactions. Risk benefit ratio favors no change other than as noted in my dictated progress note. Diagnosis: Problems: (1) Psychotic disorder (2) Impulse control disorder, unspecified (3) Vascular dementia with delusions (4) Anxiety disorder, unspecified (5) Vascular dementia with depression (6) Major neurocognitive disorder PRABHAKAR MOLINA MD Aug 26, 2020 21:02
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
[2020-08-27 06:33] VITALS: BP 165/89
[2020-08-27 07:13] LABS: BACTERIA,URINE 0 /HPF (0-FEW); BILIRUBIN,URINE NEG (NEG); CLARITY,URINE HAZY; COLOR,URINE AMBER; GLUCOSE,URINE NEG (NEG); NITRITE,URINE NEG (NEG); RBC,URINE TNTC /HPF (0-2); UROBILINOGEN,URINE 0.2 mg/dL (0.2 mg/dL)
[2020-08-27] MEDS: TAMSULOSIN 0.4 MG CAP.ER.24H. PO SCH ×2 (07:45→20:38)
[2020-08-27] MEDS: LACTOBACILLUS RHAMNOSUS GG 1 CAPSULE. PO SCH ×2 (07:45→20:37)
[2020-08-27] MEDS: MULTIVITAMIN with MINERAL TABLET. PO SCH (07:45)
[2020-08-27] MEDS: FLUTICASONE 50MCG/NASAL SPRAY 16GM BOTTLE. NS SCH (07:46)
[2020-08-27] MEDS: METOPROLOL SUCC 24HR ER 50 MG TAB.ER.24H. PO SCH (07:46)
[2020-08-27] MEDS: FENOFIBRATE NANOCRYSTALLIZED 48 MG TABLET PO SCH (07:46)
[2020-08-27] MEDS: risperiDONE 0.25 MG TABLET. PO SCH ×3 (07:46→17:05)
[2020-08-27] MEDS: PANTOPRAZOLE 40 MG TABLET. PO SCH (07:46)
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
[2020-08-27 16:38] VITALS: BP 120/77
[2020-08-27] MEDS: MELATONIN 3 MG TABLET PO SCH (20:37)
[2020-08-27] MEDS: traZODone 100 MG TABLET. PO SCH (20:38)
[2020-08-27] MEDS: MIRTAZAPINE 7.5 MG TABLET. PO SCH (20:38)
[2020-08-27] MEDS: SERTRALINE 25 MG TABLET. PO SCH (20:39)
--- NOTE | 2020-08-27 21:02 | PDOC ---
Exam Note: Manish Note: This note is a late entry for 08/25/2020 covers elements not covered in my initial note. Subjective: The patient was seen face to face in the evening of 08/25/2020 with Roselyn ULLOA. Discussed with nursing staff, reviewed the chart. He slept just 7-3/4 hours previous night. Overall the patient has not been ambulating on his own. He did walk with Roselyn, the nursing staff and otherwise in a wheelchair. Review of Systems: No CV, , pulmonary, eye, ENT system symptoms on review. Mental Status Exam: The patient is oriented to himself. Insight and judgment, recent and remote memory, attention and concentration, fund of knowledge is poor consistent with his diagnosis. Laboratory Data: Reviewed. Impression: Major neurocognitive disorder Alzheimer vascular with delusion, depression, behavioral disturbance. Anxiety disorder unspecified. Impulse control disorder. Plan: No change from initial note. Assessment: Vital Signs/I&O: Vital Signs Date Time Temp Pulse Resp B/P (MAP) Pulse Ox O2 Delivery O2 Flow Rate FiO2 08/27/20 16:38 98.8 89 20 120/77 (91) 95 08/27/20 06:33 Room Air I & O 08/26/20 08/26/20 08/27/20 14:59 22:59 06:59 Intake Total 480 ml 360 ml Balance 480 ml 360 ml Labs: Laboratory Tests Test 08/27/20 06:31 Urine Collection Type Unknown Urine Color Jessica Urine Clarity Hazy Urine pH 6.0 Urine Specific [place] 1.025 Urine Protein 30 mg/dl (NEG-TRACE) Urine Glucose (UA) Neg mg/dL (NEG) Urine Ketones (Stick) Neg mg/dL (NEG) Urine Blood Large (NEG) Urine Nitrite Neg (NEG) Urine Bilirubin Neg (NEG) Urine Urobilinogen Dipstick 0.2 mg/dL (0.2 mg/dL) Urine Leukocyte Esterase Trace (NEG) Urine RBC Tntc /HPF (0-2) Urine WBC 5-10 /HPF (0-4) Urine Squamous Epithelial Cells None /LPF Urine Bacteria 0 /HPF (0-FEW) Urine Mucus Mod /LPF Current Medications: Meds: Laboratory Tests Test 08/27/20 06:31 Urine Collection Type Unknown Urine Color Jessica Urine Clarity Hazy Urine pH 6.0 Urine Specific [place] 1.025 Urine Protein 30 mg/dl Urine Glucose (UA) Neg mg/dL Urine Ketones (Stick) Neg mg/dL Urine Blood Large Urine Nitrite Neg Urine Bilirubin Neg Urine Urobilinogen Dipstick 0.2 mg/dL Urine Leukocyte Esterase Trace Urine RBC Tntc /HPF Urine WBC 5-10 /HPF Urine Squamous Epithelial Cells None /LPF Urine Bacteria 0 /HPF Urine Mucus Mod /LPF Current Medications Medications (Trade) Dose Ordered Sig/Sonia Route PRN Reason Start Time Stop Time Status Last Admin Dose Admin Acetaminophen (Tylenol) 650 mg PRN Q6HRS PRN PO MILD PAIN / TEMP > 100.3'F 08/01/20 15:45 08/21/20 20:32 Multi-Ingredient Ointment (Analgesic [place]) 1 olu PRN QID PRN TP MUSCLE PAIN 08/01/20 15:45 08/10/20 08:39 Al Hydroxide/Mg Hydroxide (Mylanta Plus Xs) 15 ml PRN AFTMEALHC PRN PO DYSPEPSIA 08/01/20 15:45 Magnesium Hydroxide (Milk Of Magnesia) 2,400 mg PRN QHS PRN PO CONSTIPATION 08/01/20 15:45 08/06/20 06:06 Fenofibrate (Tricor) 48 mg DAILY PO 08/02/20 09:00 08/27/20 07:46 Fluticasone Propionate (Flonase) 2 spray DAILY NS 08/02/20 09:00 08/27/20 07:46 Metoprolol Succinate (Toprol Xl) 50 mg DAILY PO 08/02/20 09:00 08/27/20 07:46 Mirtazapine (Remeron) 15 mg QHS PO 08/01/20 21:00 08/03/20 18:01 DC 08/02/20 20:59 Olanzapine (ZyPREXA ZYDIS) 5 mg DAILY PO 08/02/20 09:00 08/03/20 18:01 DC 08/03/20 09:47 Pantoprazole Sodium (Protonix) 40 mg DAILY PO 08/02/20 09:00 08/27/20 07:46 Non-Formulary Medication (Lutein ) 20 mg DAILY PO 08/02/20 09:00 UNV Multivitamins/ Calcium (Thera-M Plus) 1 tab DAILY PO 08/02/20 09:00 08/27/20 07:45 Olanzapine (ZyPREXA ZYDIS) 2.5 mg PRN Q2HR PRN PO PSYCHOSIS 08/01/20 23:30 08/06/20 13:43 DC 08/06/20 09:53 Trazodone HCl (Desyrel) 50 mg PRN QHS PRN PO INSOMNIA, MAY REPEAT X2 08/01/20 23:30 08/18/20 00:09 Melatonin (Melatonin) 3 mg QHS PO 08/02/20 21:00 08/27/20 20:37 Tamsulosin HCl (Flomax) 0.4 mg DAILY PO 08/03/20 09:00 08/03/20 12:33 DC 08/03/20 09:47 Tamsulosin HCl (Flomax) 0.4 mg 1X ONCE PO 08/02/20 21:00 08/02/20 21:01 DC 08/02/20 21:01 Tamsulosin HCl (Flomax) 0.4 mg BID PO 08/03/20 14:00 08/27/20 20:38 Risperidone (RisperDAL) 0.25 mg QHS PO 08/03/20 21:00 08/11/20 18:23 DC 08/10/20 20:07 Trazodone HCl (Desyrel) 100 mg QHS PO 08/05/20 21:00 08/27/20 20:38 Levofloxacin (Levaquin) 250 mg DAILY PO 08/06/20 11:30 08/10/20 23:59 DC 08/10/20 08:38 Olanzapine (ZyPREXA ZYDIS) 5 mg PRN Q2HR PRN PO PSYCHOSIS 08/06/20 13:45 08/26/20 19:20 Lorazepam (Ativan) 1 mg 1X ONCE PO 08/06/20 18:15 08/06/20 18:22 DC Lorazepam (Ativan) 1 mg 1X PRN PO ANXIETY / AGITATION 08/06/20 18:30 08/07/20 00:00 DC 08/06/20 18:52 Lactobacillus Rhamnosus (Culturelle) 1 cap BID PO 08/07/20 21:00 08/27/20 20:37 Sertraline HCl (Zoloft) 25 mg QHS PO 08/10/20 21:00 08/19/20 17:06 DC 08/18/20 20:41 Risperidone (RisperDAL) 0.5 mg QHS PO 08/11/20 21:00 08/19/20 17:06 DC 08/18/20 20:41 Cephalexin HCl (Keflex) 500 mg TID PO 08/17/20 14:00 08/24/20 13:59 DC 08/24/20 11:09 Sertraline HCl (Zoloft) 50 mg QHS PO 08/19/20 21:00 08/27/20 20:39 Risperidone (RisperDAL) 0.25 mg 0900,1300,1700 PO 08/20/20 09:00 08/19/20 17:11 DC Risperidone (RisperDAL) 0.25 mg 0900,1300,1700 PO 08/19/20 17:15 08/27/20 17:05 Mirtazapine (Remeron) 7.5 mg QHS PO 08/20/20 21:00 08/27/20 20:38 Lidocaine HCl (Xylocaine 2% Topical 30gm Tube) 1 olu PRN DAILY PRN TP PAIN 08/24/20 15:00 I have reviewed the current psychotropics carefully including drug interactions. Risk benefit ratio favors no change other than as noted in my dictated progress note. Diagnosis: Problems: (1) Psychotic disorder (2) Impulse control disorder, unspecified (3) Vascular dementia with delusions (4) Anxiety disorder, unspecified (5) Vascular dementia with depression (6) Major neurocognitive disorder PRABHAKAR MOLINA MD Aug 27, 2020 21:02
--- NOTE | 2020-08-27 21:35 | PDOC ---
Exam Note: Manish Note: This note is a late entry for 08/26/2020 covers elements not covered in my initial note. Subjective: The patient was seen face to face in the evening of 08/26/2020 with Jessica RN. Discussed with nursing staff, reviewed the chart. He slept just 6-1/4 hours previous night. Overall the patient was agitated in the morning while he was being transferred from his bed to the chair. Hernandez catheter seems to make his anxiety worse. Review of Systems: Ambulation impaired in wheelchair. No CV, GI, pulmonary, eye, ENT system symptoms on review. He is quite agitated as I met with him. Mental Status Exam: The patient is oriented to himself. Insight and judgment, recent and remote memory, attention and concentration, fund of knowledge is poor consistent with his diagnosis. Laboratory Data: Reviewed. Impression: Major neurocognitive disorder Alzheimer vascular with delusion, depression, behavioral disturbance. Anxiety disorder unspecified. Impulse control disorder. Plan: No change from initial note. Assessment: Vital Signs/I&O: Vital Signs Date Time Temp Pulse Resp B/P (MAP) Pulse Ox O2 Delivery O2 Flow Rate FiO2 08/27/20 16:38 98.8 89 20 120/77 (91) 95 08/27/20 06:33 Room Air I & O 08/26/20 08/26/20 08/27/20 14:59 22:59 06:59 Intake Total 480 ml 360 ml Balance 480 ml 360 ml Labs: Laboratory Tests Test 08/27/20 06:31 Urine Collection Type Unknown Urine Color Jessica Urine Clarity Hazy Urine pH 6.0 Urine Specific [place] 1.025 Urine Protein 30 mg/dl (NEG-TRACE) Urine Glucose (UA) Neg mg/dL (NEG) Urine Ketones (Stick) Neg mg/dL (NEG) Urine Blood Large (NEG) Urine Nitrite Neg (NEG) Urine Bilirubin Neg (NEG) Urine Urobilinogen Dipstick 0.2 mg/dL (0.2 mg/dL) Urine Leukocyte Esterase Trace (NEG) Urine RBC Tntc /HPF (0-2) Urine WBC 5-10 /HPF (0-4) Urine Squamous Epithelial Cells None /LPF Urine Bacteria 0 /HPF (0-FEW) Urine Mucus Mod /LPF Current Medications: Meds: Laboratory Tests Test 08/27/20 06:31 Urine Collection Type Unknown Urine Color Jessica Urine Clarity Hazy Urine pH 6.0 Urine Specific [place] 1.025 Urine Protein 30 mg/dl Urine Glucose (UA) Neg mg/dL Urine Ketones (Stick) Neg mg/dL Urine Blood Large Urine Nitrite Neg Urine Bilirubin Neg Urine Urobilinogen Dipstick 0.2 mg/dL Urine Leukocyte Esterase Trace Urine RBC Tntc /HPF Urine WBC 5-10 /HPF Urine Squamous Epithelial Cells None /LPF Urine Bacteria 0 /HPF Urine Mucus Mod /LPF Current Medications Medications (Trade) Dose Ordered Sig/Sonia Route PRN Reason Start Time Stop Time Status Last Admin Dose Admin Acetaminophen (Tylenol) 650 mg PRN Q6HRS PRN PO MILD PAIN / TEMP > 100.3'F 08/01/20 15:45 08/21/20 20:32 Multi-Ingredient Ointment (Analgesic [place]) 1 olu PRN QID PRN TP MUSCLE PAIN 08/01/20 15:45 08/10/20 08:39 Al Hydroxide/Mg Hydroxide (Mylanta Plus Xs) 15 ml PRN AFTMEALHC PRN PO DYSPEPSIA 08/01/20 15:45 Magnesium Hydroxide (Milk Of Magnesia) 2,400 mg PRN QHS PRN PO CONSTIPATION 08/01/20 15:45 08/06/20 06:06 Fenofibrate (Tricor) 48 mg DAILY PO 08/02/20 09:00 08/27/20 07:46 Fluticasone Propionate (Flonase) 2 spray DAILY NS 08/02/20 09:00 08/27/20 07:46 Metoprolol Succinate (Toprol Xl) 50 mg DAILY PO 08/02/20 09:00 08/27/20 07:46 Mirtazapine (Remeron) 15 mg QHS PO 08/01/20 21:00 08/03/20 18:01 DC 08/02/20 20:59 Olanzapine (ZyPREXA ZYDIS) 5 mg DAILY PO 08/02/20 09:00 08/03/20 18:01 DC 08/03/20 09:47 Pantoprazole Sodium (Protonix) 40 mg DAILY PO 08/02/20 09:00 08/27/20 07:46 Non-Formulary Medication (Lutein ) 20 mg DAILY PO 08/02/20 09:00 UNV Multivitamins/ Calcium (Thera-M Plus) 1 tab DAILY PO 08/02/20 09:00 08/27/20 07:45 Olanzapine (ZyPREXA ZYDIS) 2.5 mg PRN Q2HR PRN PO PSYCHOSIS 08/01/20 23:30 08/06/20 13:43 DC 08/06/20 09:53 Trazodone HCl (Desyrel) 50 mg PRN QHS PRN PO INSOMNIA, MAY REPEAT X2 08/01/20 23:30 08/18/20 00:09 Melatonin (Melatonin) 3 mg QHS PO 08/02/20 21:00 08/27/20 20:37 Tamsulosin HCl (Flomax) 0.4 mg DAILY PO 08/03/20 09:00 08/03/20 12:33 DC 08/03/20 09:47 Tamsulosin HCl (Flomax) 0.4 mg 1X ONCE PO 08/02/20 21:00 08/02/20 21:01 DC 08/02/20 21:01 Tamsulosin HCl (Flomax) 0.4 mg BID PO 08/03/20 14:00 08/27/20 20:38 Risperidone (RisperDAL) 0.25 mg QHS PO 08/03/20 21:00 08/11/20 18:23 DC 08/10/20 20:07 Trazodone HCl (Desyrel) 100 mg QHS PO 08/05/20 21:00 08/27/20 20:38 Levofloxacin (Levaquin) 250 mg DAILY PO 08/06/20 11:30 08/10/20 23:59 DC 08/10/20 08:38 Olanzapine (ZyPREXA ZYDIS) 5 mg PRN Q2HR PRN PO PSYCHOSIS 08/06/20 13:45 08/26/20 19:20 Lorazepam (Ativan) 1 mg 1X ONCE PO 08/06/20 18:15 08/06/20 18:22 DC Lorazepam (Ativan) 1 mg 1X PRN PO ANXIETY / AGITATION 08/06/20 18:30 08/07/20 00:00 DC 08/06/20 18:52 Lactobacillus Rhamnosus (Culturelle) 1 cap BID PO 08/07/20 21:00 08/27/20 20:37 Sertraline HCl (Zoloft) 25 mg QHS PO 08/10/20 21:00 08/19/20 17:06 DC 08/18/20 20:41 Risperidone (RisperDAL) 0.5 mg QHS PO 08/11/20 21:00 08/19/20 17:06 DC 08/18/20 20:41 Cephalexin HCl (Keflex) 500 mg TID PO 08/17/20 14:00 08/24/20 13:59 DC 08/24/20 11:09 Sertraline HCl (Zoloft) 50 mg QHS PO 08/19/20 21:00 08/27/20 20:39 Risperidone (RisperDAL) 0.25 mg 0900,1300,1700 PO 08/20/20 09:00 08/19/20 17:11 DC Risperidone (RisperDAL) 0.25 mg 0900,1300,1700 PO 08/19/20 17:15 08/27/20 17:05 Mirtazapine (Remeron) 7.5 mg QHS PO 08/20/20 21:00 08/27/20 20:38 Lidocaine HCl (Xylocaine 2% Topical 30gm Tube) 1 olu PRN DAILY PRN TP PAIN 08/24/20 15:00 I have reviewed the current psychotropics carefully including drug interactions. Risk benefit ratio favors no change other than as noted in my dictated progress note. Diagnosis: Problems: (1) Psychotic disorder (2) Impulse control disorder, unspecified (3) Vascular dementia with delusions (4) Anxiety disorder, unspecified (5) Vascular dementia with depression (6) Major neurocognitive disorder PRABHAKAR MOLINA MD Aug 27, 2020 21:35
--- NOTE | 2020-08-27 21:36 | PDOC ---
Exam Note: Manish Note: Please also refer to the separate dictated note~for this date of service dictated separately.~Patient seen individually. Discussed the patient with Nursing staff reviewed the chart.~Reviewed interim history and current functioning. Reviewed vital signs,~Labs/ Radiology~and current medications noted below. Continue current treatment with the changes noted in the dictated addendum note Assessment: Vital Signs/I&O: Vital Signs Date Time Temp Pulse Resp B/P (MAP) Pulse Ox O2 Delivery O2 Flow Rate FiO2 08/27/20 16:38 98.8 89 20 120/77 (91) 95 08/27/20 06:33 Room Air I & O 08/26/20 08/26/20 08/27/20 14:59 22:59 06:59 Intake Total 480 ml 360 ml Balance 480 ml 360 ml Labs: Laboratory Tests Test 08/27/20 06:31 Urine Collection Type Unknown Urine Color Jessica Urine Clarity Hazy Urine pH 6.0 Urine Specific [place] 1.025 Urine Protein 30 mg/dl (NEG-TRACE) Urine Glucose (UA) Neg mg/dL (NEG) Urine Ketones (Stick) Neg mg/dL (NEG) Urine Blood Large (NEG) Urine Nitrite Neg (NEG) Urine Bilirubin Neg (NEG) Urine Urobilinogen Dipstick 0.2 mg/dL (0.2 mg/dL) Urine Leukocyte Esterase Trace (NEG) Urine RBC Tntc /HPF (0-2) Urine WBC 5-10 /HPF (0-4) Urine Squamous Epithelial Cells None /LPF Urine Bacteria 0 /HPF (0-FEW) Urine Mucus Mod /LPF Current Medications: Meds: Laboratory Tests Test 08/27/20 06:31 Urine Collection Type Unknown Urine Color Jessica Urine Clarity Hazy Urine pH 6.0 Urine Specific [place] 1.025 Urine Protein 30 mg/dl Urine Glucose (UA) Neg mg/dL Urine Ketones (Stick) Neg mg/dL Urine Blood Large Urine Nitrite Neg Urine Bilirubin Neg Urine Urobilinogen Dipstick 0.2 mg/dL Urine Leukocyte Esterase Trace Urine RBC Tntc /HPF Urine WBC 5-10 /HPF Urine Squamous Epithelial Cells None /LPF Urine Bacteria 0 /HPF Urine Mucus Mod /LPF Current Medications Medications (Trade) Dose Ordered Sig/Sonia Route PRN Reason Start Time Stop Time Status Last Admin Dose Admin Acetaminophen (Tylenol) 650 mg PRN Q6HRS PRN PO MILD PAIN / TEMP > 100.3'F 08/01/20 15:45 08/21/20 20:32 Multi-Ingredient Ointment (Analgesic [place]) 1 olu PRN QID PRN TP MUSCLE PAIN 08/01/20 15:45 08/10/20 08:39 Al Hydroxide/Mg Hydroxide (Mylanta Plus Xs) 15 ml PRN AFTMEALHC PRN PO DYSPEPSIA 08/01/20 15:45 Magnesium Hydroxide (Milk Of Magnesia) 2,400 mg PRN QHS PRN PO CONSTIPATION 08/01/20 15:45 08/06/20 06:06 Fenofibrate (Tricor) 48 mg DAILY PO 08/02/20 09:00 08/27/20 07:46 Fluticasone Propionate (Flonase) 2 spray DAILY NS 08/02/20 09:00 08/27/20 07:46 Metoprolol Succinate (Toprol Xl) 50 mg DAILY PO 08/02/20 09:00 08/27/20 07:46 Mirtazapine (Remeron) 15 mg QHS PO 08/01/20 21:00 08/03/20 18:01 DC 08/02/20 20:59 Olanzapine (ZyPREXA ZYDIS) 5 mg DAILY PO 08/02/20 09:00 08/03/20 18:01 DC 08/03/20 09:47 Pantoprazole Sodium (Protonix) 40 mg DAILY PO 08/02/20 09:00 08/27/20 07:46 Non-Formulary Medication (Lutein ) 20 mg DAILY PO 08/02/20 09:00 UNV Multivitamins/ Calcium (Thera-M Plus) 1 tab DAILY PO 08/02/20 09:00 08/27/20 07:45 Olanzapine (ZyPREXA ZYDIS) 2.5 mg PRN Q2HR PRN PO PSYCHOSIS 08/01/20 23:30 08/06/20 13:43 DC 08/06/20 09:53 Trazodone HCl (Desyrel) 50 mg PRN QHS PRN PO INSOMNIA, MAY REPEAT X2 08/01/20 23:30 08/18/20 00:09 Melatonin (Melatonin) 3 mg QHS PO 08/02/20 21:00 08/27/20 20:37 Tamsulosin HCl (Flomax) 0.4 mg DAILY PO 08/03/20 09:00 08/03/20 12:33 DC 08/03/20 09:47 Tamsulosin HCl (Flomax) 0.4 mg 1X ONCE PO 08/02/20 21:00 08/02/20 21:01 DC 08/02/20 21:01 Tamsulosin HCl (Flomax) 0.4 mg BID PO 08/03/20 14:00 08/27/20 20:38 Risperidone (RisperDAL) 0.25 mg QHS PO 08/03/20 21:00 08/11/20 18:23 DC 08/10/20 20:07 Trazodone HCl (Desyrel) 100 mg QHS PO 08/05/20 21:00 08/27/20 20:38 Levofloxacin (Levaquin) 250 mg DAILY PO 08/06/20 11:30 08/10/20 23:59 DC 08/10/20 08:38 Olanzapine (ZyPREXA ZYDIS) 5 mg PRN Q2HR PRN PO PSYCHOSIS 08/06/20 13:45 08/26/20 19:20 Lorazepam (Ativan) 1 mg 1X ONCE PO 08/06/20 18:15 08/06/20 18:22 DC Lorazepam (Ativan) 1 mg 1X PRN PO ANXIETY / AGITATION 08/06/20 18:30 08/07/20 00:00 DC 08/06/20 18:52 Lactobacillus Rhamnosus (Culturelle) 1 cap BID PO 08/07/20 21:00 08/27/20 20:37 Sertraline HCl (Zoloft) 25 mg QHS PO 08/10/20 21:00 08/19/20 17:06 DC 08/18/20 20:41 Risperidone (RisperDAL) 0.5 mg QHS PO 08/11/20 21:00 08/19/20 17:06 DC 08/18/20 20:41 Cephalexin HCl (Keflex) 500 mg TID PO 08/17/20 14:00 08/24/20 13:59 DC 08/24/20 11:09 Sertraline HCl (Zoloft) 50 mg QHS PO 08/19/20 21:00 08/27/20 20:39 Risperidone (RisperDAL) 0.25 mg 0900,1300,1700 PO 08/20/20 09:00 08/19/20 17:11 DC Risperidone (RisperDAL) 0.25 mg 0900,1300,1700 PO 08/19/20 17:15 08/27/20 17:05 Mirtazapine (Remeron) 7.5 mg QHS PO 08/20/20 21:00 08/27/20 20:38 Lidocaine HCl (Xylocaine 2% Topical 30gm Tube) 1 olu PRN DAILY PRN TP PAIN 08/24/20 15:00 I have reviewed the current psychotropics carefully including drug interactions. Risk benefit ratio favors no change other than as noted in my dictated progress note. Diagnosis: Problems: (1) Psychotic disorder (2) Impulse control disorder, unspecified (3) Vascular dementia with delusions (4) Anxiety disorder, unspecified (5) Vascular dementia with depression (6) Major neurocognitive disorder PRABHAKAR MOLINA MD Aug 27, 2020 21:36
--- NOTE | 2020-08-27 23:59 | NUR ---
Patient is located in his room on assumption of care, awake in bed. Disorganized and confused. Compliant with assessments and medications taken whole. No agitation. Patient denies any pain or discomfort. He appears to be sleeping comfortably at present time. Will continue to monitor.
[2020-08-28 06:17] VITALS: BP 136/89
--- NOTE | 2020-08-28 08:20 | PDOC ---
Exam Note: Manish Note: This note is a late entry for 08/27/2020 covers elements not covered in my initial note. Subjective: The patient was seen face to face in the evening of 08/27/2020 with Jessica ULLOA. Discussed with nursing staff, reviewed the chart. He slept just 7 hours previous night. The patient remains confused, more appropriate. He gets frustrated with Hernandez in place and seems to have blood in sediment in the urine probable UTI. We will defer to Dr. Traylor. Appetite is better. Review of Systems: Ambulation impaired with walker. No CV, GI, pulmonary, eye, ENT system symptoms on review. Reliability poor. Mental Status Exam: The patient is oriented to himself. Insight and judgment, recent and remote memory, attention and concentration, fund of knowledge is poor consistent with his diagnosis. Laboratory Data: Reviewed. Impression: Major neurocognitive disorder Alzheimer vascular with delusion, depression, behavioral disturbance. Anxiety disorder unspecified. Impulse control disorder. Plan: No change from initial note. Assessment: Vital Signs/I&O: Vital Signs Date Time Temp Pulse Resp B/P (MAP) Pulse Ox O2 Delivery O2 Flow Rate FiO2 08/28/20 06:17 98.3 82 14 136/89 (105) 95 Room Air I & O 08/27/20 08/27/20 08/28/20 15:00 23:00 07:00 Intake Total 240 ml 120 ml Output Total 1300 ml 400 ml Balance 240 ml -1180 ml -400 ml Current Medications: Meds: Current Medications Medications (Trade) Dose Ordered Sig/Sonia Route PRN Reason Start Time Stop Time Status Last Admin Dose Admin Acetaminophen (Tylenol) 650 mg PRN Q6HRS PRN PO MILD PAIN / TEMP > 100.3'F 08/01/20 15:45 08/21/20 20:32 Multi-Ingredient Ointment (Analgesic [place]) 1 olu PRN QID PRN TP MUSCLE PAIN 08/01/20 15:45 08/10/20 08:39 Al Hydroxide/Mg Hydroxide (Mylanta Plus Xs) 15 ml PRN AFTMEALHC PRN PO DYSPEPSIA 08/01/20 15:45 Magnesium Hydroxide (Milk Of Magnesia) 2,400 mg PRN QHS PRN PO CONSTIPATION 08/01/20 15:45 08/06/20 06:06 Fenofibrate (Tricor) 48 mg DAILY PO 08/02/20 09:00 08/27/20 07:46 Fluticasone Propionate (Flonase) 2 spray DAILY NS 08/02/20 09:00 08/27/20 07:46 Metoprolol Succinate (Toprol Xl) 50 mg DAILY PO 08/02/20 09:00 08/27/20 07:46 Mirtazapine (Remeron) 15 mg QHS PO 08/01/20 21:00 08/03/20 18:01 DC 08/02/20 20:59 Olanzapine (ZyPREXA ZYDIS) 5 mg DAILY PO 08/02/20 09:00 08/03/20 18:01 DC 08/03/20 09:47 Pantoprazole Sodium (Protonix) 40 mg DAILY PO 08/02/20 09:00 08/27/20 07:46 Non-Formulary Medication (Lutein ) 20 mg DAILY PO 08/02/20 09:00 UNV Multivitamins/ Calcium (Thera-M Plus) 1 tab DAILY PO 08/02/20 09:00 08/27/20 07:45 Olanzapine (ZyPREXA ZYDIS) 2.5 mg PRN Q2HR PRN PO PSYCHOSIS 08/01/20 23:30 08/06/20 13:43 DC 08/06/20 09:53 Trazodone HCl (Desyrel) 50 mg PRN QHS PRN PO INSOMNIA, MAY REPEAT X2 08/01/20 23:30 08/18/20 00:09 Melatonin (Melatonin) 3 mg QHS PO 08/02/20 21:00 08/27/20 20:37 Tamsulosin HCl (Flomax) 0.4 mg DAILY PO 08/03/20 09:00 08/03/20 12:33 DC 08/03/20 09:47 Tamsulosin HCl (Flomax) 0.4 mg 1X ONCE PO 08/02/20 21:00 08/02/20 21:01 DC 08/02/20 21:01 Tamsulosin HCl (Flomax) 0.4 mg BID PO 08/03/20 14:00 08/27/20 20:38 Risperidone (RisperDAL) 0.25 mg QHS PO 08/03/20 21:00 08/11/20 18:23 DC 08/10/20 20:07 Trazodone HCl (Desyrel) 100 mg QHS PO 08/05/20 21:00 08/27/20 20:38 Levofloxacin (Levaquin) 250 mg DAILY PO 08/06/20 11:30 08/10/20 23:59 DC 08/10/20 08:38 Olanzapine (ZyPREXA ZYDIS) 5 mg PRN Q2HR PRN PO PSYCHOSIS 08/06/20 13:45 08/26/20 19:20 Lorazepam (Ativan) 1 mg 1X ONCE PO 08/06/20 18:15 08/06/20 18:22 DC Lorazepam (Ativan) 1 mg 1X PRN PO ANXIETY / AGITATION 08/06/20 18:30 08/07/20 00:00 DC 08/06/20 18:52 Lactobacillus Rhamnosus (Culturelle) 1 cap BID PO 08/07/20 21:00 08/27/20 20:37 Sertraline HCl (Zoloft) 25 mg QHS PO 08/10/20 21:00 08/19/20 17:06 DC 08/18/20 20:41 Risperidone (RisperDAL) 0.5 mg QHS PO 08/11/20 21:00 08/19/20 17:06 DC 08/18/20 20:41 Cephalexin HCl (Keflex) 500 mg TID PO 08/17/20 14:00 08/24/20 13:59 DC 08/24/20 11:09 Sertraline HCl (Zoloft) 50 mg QHS PO 08/19/20 21:00 08/27/20 20:39 Risperidone (RisperDAL) 0.25 mg 0900,1300,1700 PO 08/20/20 09:00 08/19/20 17:11 DC Risperidone (RisperDAL) 0.25 mg 0900,1300,1700 PO 08/19/20 17:15 08/27/20 17:05 Mirtazapine (Remeron) 7.5 mg QHS PO 08/20/20 21:00 08/27/20 20:38 Lidocaine HCl (Xylocaine 2% Topical 30gm Tube) 1 olu PRN DAILY PRN TP PAIN 08/24/20 15:00 I have reviewed the current psychotropics carefully including drug interactions. Risk benefit ratio favors no change other than as noted in my dictated progress note. Diagnosis: Problems: (1) Psychotic disorder (2) Impulse control disorder, unspecified (3) Vascular dementia with delusions (4) Anxiety disorder, unspecified (5) Vascular dementia with depression (6) Major neurocognitive disorder PRABHAKAR MOLINA MD Aug 28, 2020 08:20
[2020-08-28] MEDS: LACTOBACILLUS RHAMNOSUS GG 1 CAPSULE. PO SCH ×2 (08:24→19:54)
[2020-08-28] MEDS: MULTIVITAMIN with MINERAL TABLET. PO SCH (08:24)
[2020-08-28] MEDS: TAMSULOSIN 0.4 MG CAP.ER.24H. PO SCH ×2 (08:24→19:54)
[2020-08-28] MEDS: risperiDONE 0.25 MG TABLET. PO SCH ×3 (08:24→16:46)
[2020-08-28] MEDS: PANTOPRAZOLE 40 MG TABLET. PO SCH (08:24)
[2020-08-28] MEDS: METOPROLOL SUCC 24HR ER 50 MG TAB.ER.24H. PO SCH (08:25)
[2020-08-28] MEDS: FENOFIBRATE NANOCRYSTALLIZED 48 MG TABLET PO SCH (08:26)
[2020-08-28] MEDS: FLUTICASONE 50MCG/NASAL SPRAY 16GM BOTTLE. NS SCH (09:00)
[2020-08-28] MEDS: ACETAMINOPHEN 325 MG TABLET PO PRN (13:27)
[2020-08-28 16:22] VITALS: BP 106/72
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
[2020-08-28] MEDS: traZODone 100 MG TABLET. PO SCH (19:54)
[2020-08-28] MEDS: SERTRALINE 25 MG TABLET. PO SCH (19:54)
[2020-08-28] MEDS: MELATONIN 3 MG TABLET PO SCH (19:54)
[2020-08-28] MEDS: MIRTAZAPINE 7.5 MG TABLET. PO SCH (19:54)
--- NOTE | 2020-08-28 21:03 | PDOC ---
Exam Note: Manish Note: Please also refer to the separate dictated note~for this date of service dictated separately.~Patient seen individually. Discussed the patient with Nursing staff reviewed the chart.~Reviewed interim history and current functioning. Reviewed vital signs,~Labs/ Radiology~and current medications noted below. Continue current treatment with the changes noted in the dictated addendum note Assessment: Vital Signs/I&O: Vital Signs Date Time Temp Pulse Resp B/P (MAP) Pulse Ox O2 Delivery O2 Flow Rate FiO2 08/28/20 16:22 98.4 85 18 106/72 (83) 96 08/28/20 06:17 Room Air I & O 08/27/20 08/27/20 08/28/20 15:00 23:00 07:00 Intake Total 240 ml 120 ml Output Total 1300 ml 400 ml Balance 240 ml -1180 ml -400 ml Current Medications: Meds: Current Medications Medications (Trade) Dose Ordered Sig/Sonia Route PRN Reason Start Time Stop Time Status Last Admin Dose Admin Acetaminophen (Tylenol) 650 mg PRN Q6HRS PRN PO MILD PAIN / TEMP > 100.3'F 08/01/20 15:45 08/28/20 13:27 Multi-Ingredient Ointment (Analgesic [place]) 1 olu PRN QID PRN TP MUSCLE PAIN 08/01/20 15:45 08/10/20 08:39 Al Hydroxide/Mg Hydroxide (Mylanta Plus Xs) 15 ml PRN AFTMEALHC PRN PO DYSPEPSIA 08/01/20 15:45 Magnesium Hydroxide (Milk Of Magnesia) 2,400 mg PRN QHS PRN PO CONSTIPATION 08/01/20 15:45 08/06/20 06:06 Fenofibrate (Tricor) 48 mg DAILY PO 08/02/20 09:00 08/28/20 08:26 Fluticasone Propionate (Flonase) 2 spray DAILY NS 08/02/20 09:00 08/27/20 07:46 Metoprolol Succinate (Toprol Xl) 50 mg DAILY PO 08/02/20 09:00 08/28/20 08:25 Mirtazapine (Remeron) 15 mg QHS PO 08/01/20 21:00 08/03/20 18:01 DC 08/02/20 20:59 Olanzapine (ZyPREXA ZYDIS) 5 mg DAILY PO 08/02/20 09:00 08/03/20 18:01 DC 08/03/20 09:47 Pantoprazole Sodium (Protonix) 40 mg DAILY PO 08/02/20 09:00 08/28/20 08:24 Non-Formulary Medication (Lutein ) 20 mg DAILY PO 08/02/20 09:00 UNV Multivitamins/ Calcium (Thera-M Plus) 1 tab DAILY PO 08/02/20 09:00 08/28/20 08:24 Olanzapine (ZyPREXA ZYDIS) 2.5 mg PRN Q2HR PRN PO PSYCHOSIS 08/01/20 23:30 08/06/20 13:43 DC 08/06/20 09:53 Trazodone HCl (Desyrel) 50 mg PRN QHS PRN PO INSOMNIA, MAY REPEAT X2 08/01/20 23:30 08/18/20 00:09 Melatonin (Melatonin) 3 mg QHS PO 08/02/20 21:00 08/28/20 19:54 Tamsulosin HCl (Flomax) 0.4 mg DAILY PO 08/03/20 09:00 08/03/20 12:33 DC 08/03/20 09:47 Tamsulosin HCl (Flomax) 0.4 mg 1X ONCE PO 08/02/20 21:00 08/02/20 21:01 DC 08/02/20 21:01 Tamsulosin HCl (Flomax) 0.4 mg BID PO 08/03/20 14:00 08/28/20 19:54 Risperidone (RisperDAL) 0.25 mg QHS PO 08/03/20 21:00 08/11/20 18:23 DC 08/10/20 20:07 Trazodone HCl (Desyrel) 100 mg QHS PO 08/05/20 21:00 08/28/20 19:54 Levofloxacin (Levaquin) 250 mg DAILY PO 08/06/20 11:30 08/10/20 23:59 DC 08/10/20 08:38 Olanzapine (ZyPREXA ZYDIS) 5 mg PRN Q2HR PRN PO PSYCHOSIS 08/06/20 13:45 08/28/20 18:13 Lorazepam (Ativan) 1 mg 1X ONCE PO 08/06/20 18:15 08/06/20 18:22 DC Lorazepam (Ativan) 1 mg 1X PRN PO ANXIETY / AGITATION 08/06/20 18:30 08/07/20 00:00 DC 08/06/20 18:52 Lactobacillus Rhamnosus (Culturelle) 1 cap BID PO 08/07/20 21:00 08/28/20 19:54 Sertraline HCl (Zoloft) 25 mg QHS PO 08/10/20 21:00 08/19/20 17:06 DC 08/18/20 20:41 Risperidone (RisperDAL) 0.5 mg QHS PO 08/11/20 21:00 08/19/20 17:06 DC 08/18/20 20:41 Cephalexin HCl (Keflex) 500 mg TID PO 08/17/20 14:00 08/24/20 13:59 DC 08/24/20 11:09 Sertraline HCl (Zoloft) 50 mg QHS PO 08/19/20 21:00 08/28/20 19:54 Risperidone (RisperDAL) 0.25 mg 0900,1300,1700 PO 08/20/20 09:00 08/19/20 17:11 DC Risperidone (RisperDAL) 0.25 mg 0900,1300,1700 PO 08/19/20 17:15 08/28/20 16:46 Mirtazapine (Remeron) 7.5 mg QHS PO 08/20/20 21:00 08/28/20 19:54 Lidocaine HCl (Xylocaine 2% Topical 30gm Tube) 1 olu PRN DAILY PRN TP PAIN 08/24/20 15:00 I have reviewed the current psychotropics carefully including drug interactions. Risk benefit ratio favors no change other than as noted in my dictated progress note. Diagnosis: Problems: (1) Psychotic disorder (2) Impulse control disorder, unspecified (3) Vascular dementia with delusions (4) Anxiety disorder, unspecified (5) Vascular dementia with depression (6) Major neurocognitive disorder PRABHAKAR MOLINA MD Aug 28, 2020 21:03
--- NOTE | 2020-08-28 22:02 | NUR ---
Nursing Note: Pt withdrawn, sitting quietly in the West hallway at shift change. Pt calm and interactive when approached. Pt feels remorseful for his actions on previous shift, stating "I shouldn't have acted like that". Pt cooperative with assessment and compliant with medications administered whole.
[2020-08-29 06:36] VITALS: BP 127/75
[2020-08-29] MEDS: MULTIVITAMIN with MINERAL TABLET. PO SCH (08:45)
[2020-08-29] MEDS: risperiDONE 0.25 MG TABLET. PO SCH ×3 (08:46→17:00)
[2020-08-29] MEDS: METOPROLOL SUCC 24HR ER 50 MG TAB.ER.24H. PO SCH (08:46)
[2020-08-29] MEDS: TAMSULOSIN 0.4 MG CAP.ER.24H. PO SCH ×2 (08:46→19:40)
[2020-08-29] MEDS: FLUTICASONE 50MCG/NASAL SPRAY 16GM BOTTLE. NS SCH (08:46)
[2020-08-29] MEDS: PANTOPRAZOLE 40 MG TABLET. PO SCH (08:46)
[2020-08-29] MEDS: LACTOBACILLUS RHAMNOSUS GG 1 CAPSULE. PO SCH ×2 (08:46→19:40)
[2020-08-29] MEDS: FENOFIBRATE NANOCRYSTALLIZED 48 MG TABLET PO SCH (08:46)
--- NOTE | 2020-08-29 13:59 | NUR ---
HU received a call from Halina, pt who wanted an update on pt and to discuss discharge. HU explained to Halina that if pt went home, he for sure would need HH to continue PT and OT, with nursing to aid her in the [facility]. 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 SW explained that he probably would be better suited for rehab as they get more extensive time with insurance to complete therapy. Pt questioned where that would be; SW mentioned some places within this area but also mentioned potentially looking in [place] as it would be closer for her to [place]. Pt and SW discussed some rehabs turning pt down as he does not always wish to work with PT/OT. HU explained that he is capable of walking and doing more; however, he doesn't. OR if it is not in his own time, he will just flat out refuse and can be verbally aggressive with staff. Halina would like to talk to her dtr who is a PT and asked SW if she would be willing to talk to her about the options and best fit for pt.
--- NOTE | 2020-08-29 14:20 | NUR ---
HU received call from Zarina, pt dtr, to discuss conversation had with pt , Halina. Zarina felt that if pt went home, he would be pretty well setup with the exception of having a RW. Pt dtr also felt that under the circumstances, best case scenario may be to have pt go to [facility] for rehab. If that were possible, it would continue to give pt more time to get used to the idea of having pt home. Pt dtr and SW went over pt current status, walking 250' with a RW and the times that pt was in a w/c what that looked like. Pt wants to complete tasks in his own time and if he feels rushed he will refuse or at times get verbally aggressive. Pt dtr laughed and stated, "I wish I could say that's new but he's always kind of been that way". Zarina requests that a referral be sent and once an answer has been determined, SW contact pt with the discharge plan.
[2020-08-29 15:30] VITALS: BP 121/80
--- NOTE | 2020-08-29 15:47 | NUR ---
Patient is cooperative but can be irritable and agitated at times. Patient has no complaints. His catheter insertion site is red and swollen. Lidocaine gel used on outside to help with any pain patient may have. He is not complaining of any at this time. Patient takes medications whole with no problems. No further concerns or complaints at this time.
[2020-08-29] MEDS: MELATONIN 3 MG TABLET PO SCH (19:40)
[2020-08-29] MEDS: traZODone 100 MG TABLET. PO SCH (19:40)
[2020-08-29] MEDS: MIRTAZAPINE 7.5 MG TABLET. PO SCH (19:40)
[2020-08-29] MEDS: SERTRALINE 25 MG TABLET. PO SCH (19:40)
--- NOTE | 2020-08-29 20:58 | PDOC ---
Exam Note: Manish Note: Please also refer to the separate dictated note~for this date of service dictated separately.~Patient seen individually. Discussed the patient with Nursing staff reviewed the chart.~Reviewed interim history and current functioning. Reviewed vital signs,~Labs/ Radiology~and current medications noted below. Continue current treatment with the changes noted in the dictated addendum note Assessment: Vital Signs/I&O: Vital Signs Date Time Temp Pulse Resp B/P (MAP) Pulse Ox O2 Delivery O2 Flow Rate FiO2 08/29/20 15:30 98.0 89 16 121/80 (94) 94 08/29/20 06:36 Room Air I & O 08/28/20 08/28/20 08/29/20 15:00 23:00 07:00 Intake Total 360 ml 120 ml Output Total 200 ml Balance 360 ml 120 ml -200 ml Current Medications: Meds: Current Medications Medications (Trade) Dose Ordered Sig/Sonia Route PRN Reason Start Time Stop Time Status Last Admin Dose Admin Acetaminophen (Tylenol) 650 mg PRN Q6HRS PRN PO MILD PAIN / TEMP > 100.3'F 08/01/20 15:45 08/28/20 13:27 Multi-Ingredient Ointment (Analgesic [place]) 1 olu PRN QID PRN TP MUSCLE PAIN 08/01/20 15:45 08/10/20 08:39 Al Hydroxide/Mg Hydroxide (Mylanta Plus Xs) 15 ml PRN AFTMEALHC PRN PO DYSPEPSIA 08/01/20 15:45 Magnesium Hydroxide (Milk Of Magnesia) 2,400 mg PRN QHS PRN PO CONSTIPATION 08/01/20 15:45 08/06/20 06:06 Fenofibrate (Tricor) 48 mg DAILY PO 08/02/20 09:00 08/29/20 08:46 Fluticasone Propionate (Flonase) 2 spray DAILY NS 08/02/20 09:00 08/29/20 08:46 Metoprolol Succinate (Toprol Xl) 50 mg DAILY PO 08/02/20 09:00 08/29/20 08:46 Mirtazapine (Remeron) 15 mg QHS PO 08/01/20 21:00 08/03/20 18:01 DC 08/02/20 20:59 Olanzapine (ZyPREXA ZYDIS) 5 mg DAILY PO 08/02/20 09:00 08/03/20 18:01 DC 08/03/20 09:47 Pantoprazole Sodium (Protonix) 40 mg DAILY PO 08/02/20 09:00 08/29/20 08:46 Non-Formulary Medication (Lutein ) 20 mg DAILY PO 08/02/20 09:00 UNV Multivitamins/ Calcium (Thera-M Plus) 1 tab DAILY PO 08/02/20 09:00 08/29/20 08:45 Olanzapine (ZyPREXA ZYDIS) 2.5 mg PRN Q2HR PRN PO PSYCHOSIS 08/01/20 23:30 08/06/20 13:43 DC 08/06/20 09:53 Trazodone HCl (Desyrel) 50 mg PRN QHS PRN PO INSOMNIA, MAY REPEAT X2 08/01/20 23:30 08/18/20 00:09 Melatonin (Melatonin) 3 mg QHS PO 08/02/20 21:00 08/29/20 19:40 Tamsulosin HCl (Flomax) 0.4 mg DAILY PO 08/03/20 09:00 08/03/20 12:33 DC 08/03/20 09:47 Tamsulosin HCl (Flomax) 0.4 mg 1X ONCE PO 08/02/20 21:00 08/02/20 21:01 DC 08/02/20 21:01 Tamsulosin HCl (Flomax) 0.4 mg BID PO 08/03/20 14:00 08/29/20 19:40 Risperidone (RisperDAL) 0.25 mg QHS PO 08/03/20 21:00 08/11/20 18:23 DC 08/10/20 20:07 Trazodone HCl (Desyrel) 100 mg QHS PO 08/05/20 21:00 08/29/20 19:40 Levofloxacin (Levaquin) 250 mg DAILY PO 08/06/20 11:30 08/10/20 23:59 DC 08/10/20 08:38 Olanzapine (ZyPREXA ZYDIS) 5 mg PRN Q2HR PRN PO PSYCHOSIS 08/06/20 13:45 08/29/20 19:40 Lorazepam (Ativan) 1 mg 1X ONCE PO 08/06/20 18:15 08/06/20 18:22 DC Lorazepam (Ativan) 1 mg 1X PRN PO ANXIETY / AGITATION 08/06/20 18:30 08/07/20 00:00 DC 08/06/20 18:52 Lactobacillus Rhamnosus (Culturelle) 1 cap BID PO 08/07/20 21:00 08/29/20 19:40 Sertraline HCl (Zoloft) 25 mg QHS PO 08/10/20 21:00 08/19/20 17:06 DC 08/18/20 20:41 Risperidone (RisperDAL) 0.5 mg QHS PO 08/11/20 21:00 08/19/20 17:06 DC 08/18/20 20:41 Cephalexin HCl (Keflex) 500 mg TID PO 08/17/20 14:00 08/24/20 13:59 DC 08/24/20 11:09 Sertraline HCl (Zoloft) 50 mg QHS PO 08/19/20 21:00 08/29/20 19:40 Risperidone (RisperDAL) 0.25 mg 0900,1300,1700 PO 08/20/20 09:00 08/19/20 17:11 DC Risperidone (RisperDAL) 0.25 mg 0900,1300,1700 PO 08/19/20 17:15 08/29/20 17:00 Mirtazapine (Remeron) 7.5 mg QHS PO 08/20/20 21:00 08/29/20 19:40 Lidocaine HCl (Xylocaine 2% Topical 30gm Tube) 1 olu PRN DAILY PRN TP PAIN 08/24/20 15:00 I have reviewed the current psychotropics carefully including drug interactions. Risk benefit ratio favors no change other than as noted in my dictated progress note. Diagnosis: Problems: (1) Psychotic disorder (2) Impulse control disorder, unspecified (3) Vascular dementia with delusions (4) Anxiety disorder, unspecified (5) Vascular dementia with depression (6) Major neurocognitive disorder PRABHAKAR MOLINA MD Aug 29, 2020 20:58
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
[2020-08-30 06:24] VITALS: BP 100/65
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
[2020-08-30] MEDS: FLUTICASONE 50MCG/NASAL SPRAY 16GM BOTTLE. NS SCH (09:00)
--- NOTE | 2020-08-30 09:13 | PDOC ---
Exam Note: Manish Note: This note is a late entry for 08/29/2020 covers elements not covered in my initial note. Subjective: The patient was seen face to face in the evening of 08/29/2020 with Roselyn ULLOA. Discussed with nursing staff, reviewed the chart. He slept just 8 hours previous night. The patient remains anxious, restless, pulling on his [place] catheter. He has been ambulating better for the past 3 days in preparation for going home with his . Review of Systems: Positive for symptoms due to the catheter. No CV, GI, pulmonary, eye, ENT system symptoms on review. Mental Status Exam: The patient is oriented to himself. Insight and judgment, recent and remote memory, attention and concentration, fund of knowledge is poor consistent with his diagnosis. Laboratory Data: Reviewed. Impression: Major neurocognitive disorder Alzheimer vascular with delusion, depression, behavioral disturbance. Anxiety disorder unspecified. Impulse control disorder. Plan: Continue psychotropics from initial note. Assessment: Vital Signs/I&O: Vital Signs Date Time Temp Pulse Resp B/P (MAP) Pulse Ox O2 Delivery O2 Flow Rate FiO2 08/30/20 06:24 97.6 82 16 100/65 (77) 93 Room Air I & O 08/29/20 08/29/20 08/30/20 15:00 23:00 07:00 Intake Total 720 ml 480 ml Output Total 600 ml Balance 120 ml 480 ml Current Medications: Meds: Current Medications Medications (Trade) Dose Ordered Sig/Sonia Route PRN Reason Start Time Stop Time Status Last Admin Dose Admin Acetaminophen (Tylenol) 650 mg PRN Q6HRS PRN PO MILD PAIN / TEMP > 100.3'F 08/01/20 15:45 08/28/20 13:27 Multi-Ingredient Ointment (Analgesic [place]) 1 olu PRN QID PRN TP MUSCLE PAIN 08/01/20 15:45 08/10/20 08:39 Al Hydroxide/Mg Hydroxide (Mylanta Plus Xs) 15 ml PRN AFTMEALHC PRN PO DYSPEPSIA 08/01/20 15:45 Magnesium Hydroxide (Milk Of Magnesia) 2,400 mg PRN QHS PRN PO CONSTIPATION 08/01/20 15:45 08/06/20 06:06 Fenofibrate (Tricor) 48 mg DAILY PO 08/02/20 09:00 08/29/20 08:46 Fluticasone Propionate (Flonase) 2 spray DAILY NS 08/02/20 09:00 08/29/20 08:46 Metoprolol Succinate (Toprol Xl) 50 mg DAILY PO 08/02/20 09:00 08/29/20 08:46 Mirtazapine (Remeron) 15 mg QHS PO 08/01/20 21:00 08/03/20 18:01 DC 08/02/20 20:59 Olanzapine (ZyPREXA ZYDIS) 5 mg DAILY PO 08/02/20 09:00 08/03/20 18:01 DC 08/03/20 09:47 Pantoprazole Sodium (Protonix) 40 mg DAILY PO 08/02/20 09:00 08/29/20 08:46 Non-Formulary Medication (Lutein ) 20 mg DAILY PO 08/02/20 09:00 UNV Multivitamins/ Calcium (Thera-M Plus) 1 tab DAILY PO 08/02/20 09:00 08/29/20 08:45 Olanzapine (ZyPREXA ZYDIS) 2.5 mg PRN Q2HR PRN PO PSYCHOSIS 08/01/20 23:30 08/06/20 13:43 DC 08/06/20 09:53 Trazodone HCl (Desyrel) 50 mg PRN QHS PRN PO INSOMNIA, MAY REPEAT X2 08/01/20 23:30 08/18/20 00:09 Melatonin (Melatonin) 3 mg QHS PO 08/02/20 21:00 08/29/20 19:40 Tamsulosin HCl (Flomax) 0.4 mg DAILY PO 08/03/20 09:00 08/03/20 12:33 DC 08/03/20 09:47 Tamsulosin HCl (Flomax) 0.4 mg 1X ONCE PO 08/02/20 21:00 08/02/20 21:01 DC 08/02/20 21:01 Tamsulosin HCl (Flomax) 0.4 mg BID PO 08/03/20 14:00 08/29/20 19:40 Risperidone (RisperDAL) 0.25 mg QHS PO 08/03/20 21:00 08/11/20 18:23 DC 08/10/20 20:07 Trazodone HCl (Desyrel) 100 mg QHS PO 08/05/20 21:00 08/29/20 19:40 Levofloxacin (Levaquin) 250 mg DAILY PO 08/06/20 11:30 08/10/20 23:59 DC 08/10/20 08:38 Olanzapine (ZyPREXA ZYDIS) 5 mg PRN Q2HR PRN PO PSYCHOSIS 08/06/20 13:45 08/29/20 19:40 Lorazepam (Ativan) 1 mg 1X ONCE PO 08/06/20 18:15 08/06/20 18:22 DC Lorazepam (Ativan) 1 mg 1X PRN PO ANXIETY / AGITATION 08/06/20 18:30 08/07/20 00:00 DC 08/06/20 18:52 Lactobacillus Rhamnosus (Culturelle) 1 cap BID PO 08/07/20 21:00 08/29/20 19:40 Sertraline HCl (Zoloft) 25 mg QHS PO 08/10/20 21:00 08/19/20 17:06 DC 08/18/20 20:41 Risperidone (RisperDAL) 0.5 mg QHS PO 08/11/20 21:00 08/19/20 17:06 DC 08/18/20 20:41 Cephalexin HCl (Keflex) 500 mg TID PO 08/17/20 14:00 08/24/20 13:59 DC 08/24/20 11:09 Sertraline HCl (Zoloft) 50 mg QHS PO 08/19/20 21:00 08/29/20 19:40 Risperidone (RisperDAL) 0.25 mg 0900,1300,1700 PO 08/20/20 09:00 08/19/20 17:11 DC Risperidone (RisperDAL) 0.25 mg 0900,1300,1700 PO 08/19/20 17:15 08/29/20 17:00 Mirtazapine (Remeron) 7.5 mg QHS PO 08/20/20 21:00 08/29/20 19:40 Lidocaine HCl (Xylocaine 2% Topical 30gm Tube) 1 olu PRN DAILY PRN TP PAIN 08/24/20 15:00 I have reviewed the current psychotropics carefully including drug interactions. Risk benefit ratio favors no change other than as noted in my dictated progress note. Diagnosis: Problems: (1) Psychotic disorder (2) Impulse control disorder, unspecified (3) Vascular dementia with delusions (4) Anxiety disorder, unspecified (5) Vascular dementia with depression (6) Major neurocognitive disorder PRABHAKAR MOLINA MD Aug 30, 2020 09:13
[2020-08-30] MEDS: FENOFIBRATE NANOCRYSTALLIZED 48 MG TABLET PO SCH (09:49)
[2020-08-30] MEDS: METOPROLOL SUCC 24HR ER 50 MG TAB.ER.24H. PO SCH (09:49)
[2020-08-30] MEDS: LACTOBACILLUS RHAMNOSUS GG 1 CAPSULE. PO SCH ×2 (09:49→20:06)
[2020-08-30] MEDS: TAMSULOSIN 0.4 MG CAP.ER.24H. PO SCH ×2 (09:49→20:07)
[2020-08-30] MEDS: MULTIVITAMIN with MINERAL TABLET. PO SCH (09:49)
[2020-08-30] MEDS: PANTOPRAZOLE 40 MG TABLET. PO SCH (09:49)
[2020-08-30] MEDS: risperiDONE 0.25 MG TABLET. PO SCH ×3 (09:49→18:00)
[2020-08-30 16:08] VITALS: BP 120/77
[2020-08-30] MEDS: MIRTAZAPINE 7.5 MG TABLET. PO SCH (20:06)
[2020-08-30] MEDS: traZODone 100 MG TABLET. PO SCH (20:07)
[2020-08-30] MEDS: MELATONIN 3 MG TABLET PO SCH (20:07)
[2020-08-30] MEDS: SERTRALINE 25 MG TABLET. PO SCH (20:07)
--- NOTE | 2020-08-30 21:01 | PDOC ---
Exam Note: Manish Note: Please also refer to the separate dictated note~for this date of service dictated separately.~Patient seen individually. Discussed the patient with Nursing staff reviewed the chart.~Reviewed interim history and current functioning. Reviewed vital signs,~Labs/ Radiology~and current medications noted below. Continue current treatment with the changes noted in the dictated addendum note Assessment: Vital Signs/I&O: Vital Signs Date Time Temp Pulse Resp B/P (MAP) Pulse Ox O2 Delivery O2 Flow Rate FiO2 08/30/20 16:08 97.8 115 16 120/77 (91) 96.0 08/30/20 06:24 93 Room Air I & O 08/29/20 08/29/20 08/30/20 15:00 23:00 07:00 Intake Total 720 ml 480 ml Output Total 600 ml Balance 120 ml 480 ml Labs: Laboratory Tests Test 08/30/20 05:35 Coronavirus (PCR) Not detected (Not Detected) Current Medications: Meds: Laboratory Tests Test 08/30/20 05:35 Coronavirus (PCR) Not detected Current Medications Medications (Trade) Dose Ordered Sig/Sonia Route PRN Reason Start Time Stop Time Status Last Admin Dose Admin Acetaminophen (Tylenol) 650 mg PRN Q6HRS PRN PO MILD PAIN / TEMP > 100.3'F 08/01/20 15:45 08/28/20 13:27 Multi-Ingredient Ointment (Analgesic Jackson) 1 olu PRN QID PRN TP MUSCLE PAIN 08/01/20 15:45 08/10/20 08:39 Al Hydroxide/Mg Hydroxide (Mylanta Plus Xs) 15 ml PRN AFTMEALHC PRN PO DYSPEPSIA 08/01/20 15:45 Magnesium Hydroxide (Milk Of Magnesia) 2,400 mg PRN QHS PRN PO CONSTIPATION 08/01/20 15:45 08/06/20 06:06 Fenofibrate (Tricor) 48 mg DAILY PO 08/02/20 09:00 08/30/20 09:49 Fluticasone Propionate (Flonase) 2 spray DAILY NS 08/02/20 09:00 08/30/20 09:00 Metoprolol Succinate (Toprol Xl) 50 mg DAILY PO 08/02/20 09:00 08/30/20 09:49 Mirtazapine (Remeron) 15 mg QHS PO 08/01/20 21:00 08/03/20 18:01 DC 08/02/20 20:59 Olanzapine (ZyPREXA ZYDIS) 5 mg DAILY PO 08/02/20 09:00 08/03/20 18:01 DC 08/03/20 09:47 Pantoprazole Sodium (Protonix) 40 mg DAILY PO 08/02/20 09:00 08/30/20 09:49 Non-Formulary Medication (Lutein ) 20 mg DAILY PO 08/02/20 09:00 UNV Multivitamins/ Calcium (Thera-M Plus) 1 tab DAILY PO 08/02/20 09:00 08/30/20 09:49 Olanzapine (ZyPREXA ZYDIS) 2.5 mg PRN Q2HR PRN PO PSYCHOSIS 08/01/20 23:30 08/06/20 13:43 DC 08/06/20 09:53 Trazodone HCl (Desyrel) 50 mg PRN QHS PRN PO INSOMNIA, MAY REPEAT X2 08/01/20 23:30 08/18/20 00:09 Melatonin (Melatonin) 3 mg QHS PO 08/02/20 21:00 08/30/20 20:07 Tamsulosin HCl (Flomax) 0.4 mg DAILY PO 08/03/20 09:00 08/03/20 12:33 DC 08/03/20 09:47 Tamsulosin HCl (Flomax) 0.4 mg 1X ONCE PO 08/02/20 21:00 08/02/20 21:01 DC 08/02/20 21:01 Tamsulosin HCl (Flomax) 0.4 mg BID PO 08/03/20 14:00 08/30/20 20:07 Risperidone (RisperDAL) 0.25 mg QHS PO 08/03/20 21:00 08/11/20 18:23 DC 08/10/20 20:07 Trazodone HCl (Desyrel) 100 mg QHS PO 08/05/20 21:00 08/30/20 20:07 Levofloxacin (Levaquin) 250 mg DAILY PO 08/06/20 11:30 08/10/20 23:59 DC 08/10/20 08:38 Olanzapine (ZyPREXA ZYDIS) 5 mg PRN Q2HR PRN PO PSYCHOSIS 08/06/20 13:45 08/29/20 19:40 Lorazepam (Ativan) 1 mg 1X ONCE PO 08/06/20 18:15 08/06/20 18:22 DC Lorazepam (Ativan) 1 mg 1X PRN PO ANXIETY / AGITATION 08/06/20 18:30 08/07/20 00:00 DC 08/06/20 18:52 Lactobacillus Rhamnosus (Culturelle) 1 cap BID PO 08/07/20 21:00 08/30/20 20:06 Sertraline HCl (Zoloft) 25 mg QHS PO 08/10/20 21:00 08/19/20 17:06 DC 08/18/20 20:41 Risperidone (RisperDAL) 0.5 mg QHS PO 08/11/20 21:00 08/19/20 17:06 DC 08/18/20 20:41 Cephalexin HCl (Keflex) 500 mg TID PO 08/17/20 14:00 08/24/20 13:59 DC 08/24/20 11:09 Sertraline HCl (Zoloft) 50 mg QHS PO 08/19/20 21:00 08/30/20 20:07 Risperidone (RisperDAL) 0.25 mg 0900,1300,1700 PO 08/20/20 09:00 08/19/20 17:11 DC Risperidone (RisperDAL) 0.25 mg 0900,1300,1700 PO 08/19/20 17:15 08/30/20 18:00 Mirtazapine (Remeron) 7.5 mg QHS PO 08/20/20 21:00 08/30/20 20:06 Lidocaine HCl (Xylocaine 2% Topical 30gm Tube) 1 olu PRN DAILY PRN TP PAIN 08/24/20 15:00 I have reviewed the current psychotropics carefully including drug interactions. Risk benefit ratio favors no change other than as noted in my dictated progress note. Diagnosis: Problems: (1) Psychotic disorder (2) Impulse control disorder, unspecified (3) Vascular dementia with delusions (4) Anxiety disorder, unspecified (5) Vascular dementia with depression (6) Major neurocognitive disorder PRABHAKAR MOLINA MD Aug 30, 2020 21:01
[2020-08-30] MEDS: traZODone 50 MG TABLET. PO PRN (22:34)
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
[2020-08-31 00:33] VITALS: BP 142/91
--- NOTE | 2020-08-31 00:45 | NUR ---
Nursing Note: During rounds pt catheter noted to have a large clot retained in the tubing. Pt had removed his brief and pants and rubber catheter appeared to have been pulled on but remained in the meatus. I clamped pearson and irrigated tubing without difficulty but there was no urine return. While attempting to readjust catheter, pt pulled the catheter from his penis. I attempted to replace with another 12F pearson without success. There was bleeding noted at the meatus. Bladder scan performed at this time and resulted 591mL retained fluid in the bladder. At this time, I placed a call to Dr. Art whom advised that by attempting to catheterize pt would only result in further trauma. Orders received to "ice it and leave it alone". Ice pack applied to penis as well as PRN Lidocaine gel as ordered for pain.
[2020-08-31 06:00] VITALS: BP 120/79
--- NOTE | 2020-08-31 06:15 | NUR ---
Nursing Note: Pt incontinent of urine during morning rounds to the point of requiring a total linen change. Pt passed several small clots as well. Bladder scan post void resulted 376mL retained urine in the bladder.
[2020-08-31] MEDS: FLUTICASONE 50MCG/NASAL SPRAY 16GM BOTTLE. NS SCH (09:00)
[2020-08-31] MEDS: FENOFIBRATE NANOCRYSTALLIZED 48 MG TABLET PO SCH (09:13)
[2020-08-31] MEDS: risperiDONE 0.25 MG TABLET. PO SCH ×2 (09:13→13:11)
[2020-08-31] MEDS: LACTOBACILLUS RHAMNOSUS GG 1 CAPSULE. PO SCH (09:13)
[2020-08-31] MEDS: MULTIVITAMIN with MINERAL TABLET. PO SCH (09:13)
[2020-08-31] MEDS: PANTOPRAZOLE 40 MG TABLET. PO SCH (09:13)
[2020-08-31] MEDS: METOPROLOL SUCC 24HR ER 50 MG TAB.ER.24H. PO SCH (09:13)
[2020-08-31] MEDS: TAMSULOSIN 0.4 MG CAP.ER.24H. PO SCH (09:14)
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
--- NOTE | 2020-08-31 11:00 | NUR ---
WEEKLY ACTIVITY THERAPY NOTE Date of Admission: 08/01 Date of AT Assessment: 08/04 Precipitating behaviors that initiated intake and admission: Patient was reported to be aggressive towards his , noncompliant with medications. Goal aimed:increase stress management/relaxation and socialization skills Initial Goal: Pt will participate in at least one individual or group Activity Therapy session before discharge. Goal changed 08/10: Pt. will participate in at least three Activity Therapy groups before discharge Weekly progress towards goal: exceeded 7/3- 5 groups this week Group participation level: 1 min, 3 mod, 1 full Weekly highlights: singing along with Fernando music on Friday afternoon- appropriately tearful- music brought back good memories, dancing in chair with and without Activity Therapist Behaviors observed: joins groups about half way through, thankful-shaking Activity Therapist hand and kissing her hand after group on Friday morning, working with therapy, slower reactions in group yesterday morning Plan: no goal change at this time, pending discharge Friday09/04/20- otherwise, repeat goal Beneficial adaptations:
--- NOTE | 2020-08-31 13:44 | NUR ---
HU contacted pt , Halina, to give her an update on pt process. Dr. Thomas, urologist in [place], did not wish to provide care for this pt and recommended the original plan of having pt go to [place] and he can follow up in [place], [place] as needed. At this time the hospitalist in [place] at [facility] has been notified and are waiting to hear back on if the urologist will accept. HU also updated pt on getting a voicemail from Archana, concerned about if pt would be a good fit at [facility]. Halina reports that she used to work there and could guarantee that they had more aggressive pts than her . HU will call Archana back and hopefully have an update for her from the [facility].
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
[2020-08-31 16:00] VITALS: BP 128/69
--- NOTE | 2020-08-31 16:39 | NUR ---
Patient in room at time of assessment. Patient is calm and cooperative. Patient will be being discharged today to another facility due to urinary incontinence. Dr Art has ordered discharge. Associate Professor Of Literacy is working on transfer. Called report to Rody at facility. Patient has been well behaved today and took medications whole with no problems. Patient did not void today for me and when bladder scanned had 375ml @ 1200. Report was called at 1530 and then EMS showed up at 1430. We were not aware that EMS was going to be here that fast so we had to get his belongings and there were a few belonging in his first room because he had been moved so many times. We will contact family to see what they would like for us to do. Patient was picked up by EMS and his belongings he had in safe were given to him as well as what we had here in locked closet.
--- NOTE | 2020-08-31 16:43 | NUR ---
Transition Record was faxed to follow-up provider with the following elements: Reason for admission, procedures, tests, principal diagnosis, pending studies, patient instructions, 17/02 contact information for unit, phone number to obtain pending test results, plan for follow-up care, physician follow-up, advanced directive information, and medication list with dose, duration and instructions. This information was included in the following documents: History and physical, lab results, study results, progress notes, social work planning form, DC instruction form, patient visit summary, and medication reconciliation form. Date & time record faxed:08/31/20 Record faxed to: All sent with patient per nurse at hospital request Record discussed with/ report given to: Rody
--- NOTE | 2020-08-31 21:15 | PDOC ---
Exam Note: Manish Note: Please also refer to the separate dictated note~for this date of service dictated separately.~Patient seen individually. Discussed the patient with Nursing staff reviewed the chart.~Reviewed interim history and current functioning. Reviewed vital signs,~Labs/ Radiology~and current medications noted below. Continue current treatment with the changes noted in the dictated addendum note Assessment: Vital Signs/I&O: Vital Signs Date Time Temp Pulse Resp B/P (MAP) Pulse Ox O2 Delivery O2 Flow Rate FiO2 08/31/20 16:00 98.2 93 16 128/69 (88) 96 08/31/20 00:33 Room Air 08/30/20 16:08 96.0 I & O 08/30/20 08/30/20 08/31/20 14:59 22:59 06:59 Intake Total 240 ml 360 ml Balance 240 ml 360 ml Current Medications: Meds: Current Medications Medications (Trade) Dose Ordered Sig/Sonia Route PRN Reason Start Time Stop Time Status Last Admin Dose Admin Acetaminophen (Tylenol) 650 mg PRN Q6HRS PRN PO MILD PAIN / TEMP > 100.3'F 08/01/20 15:45 08/31/20 17:06 DC 08/28/20 13:27 Multi-Ingredient Ointment (Analgesic Ramah) 1 olu PRN QID PRN TP MUSCLE PAIN 08/01/20 15:45 08/31/20 17:06 DC 08/10/20 08:39 Al Hydroxide/Mg Hydroxide (Mylanta Plus Xs) 15 ml PRN AFTMEALHC PRN PO DYSPEPSIA 08/01/20 15:45 08/31/20 17:06 DC Magnesium Hydroxide (Milk Of Magnesia) 2,400 mg PRN QHS PRN PO CONSTIPATION 08/01/20 15:45 08/31/20 17:06 DC 08/06/20 06:06 Fenofibrate (Tricor) 48 mg DAILY PO 08/02/20 09:00 08/31/20 17:06 DC 08/31/20 09:13 Fluticasone Propionate (Flonase) 2 spray DAILY NS 08/02/20 09:00 08/31/20 17:06 DC 08/31/20 09:00 Metoprolol Succinate (Toprol Xl) 50 mg DAILY PO 08/02/20 09:00 08/31/20 17:06 DC 08/31/20 09:13 Mirtazapine (Remeron) 15 mg QHS PO 08/01/20 21:00 08/03/20 18:01 DC 08/02/20 20:59 Olanzapine (ZyPREXA ZYDIS) 5 mg DAILY PO 08/02/20 09:00 08/03/20 18:01 DC 08/03/20 09:47 Pantoprazole Sodium (Protonix) 40 mg DAILY PO 08/02/20 09:00 08/31/20 17:06 DC 08/31/20 09:13 Non-Formulary Medication (Lutein ) 20 mg DAILY PO 08/02/20 09:00 UNV Multivitamins/ Calcium (Thera-M Plus) 1 tab DAILY PO 08/02/20 09:00 08/31/20 17:06 DC 08/31/20 09:13 Olanzapine (ZyPREXA ZYDIS) 2.5 mg PRN Q2HR PRN PO PSYCHOSIS 08/01/20 23:30 08/06/20 13:43 DC 08/06/20 09:53 Trazodone HCl (Desyrel) 50 mg PRN QHS PRN PO INSOMNIA, MAY REPEAT X2 08/01/20 23:30 08/31/20 17:06 DC 08/30/20 22:34 Melatonin (Melatonin) 3 mg QHS PO 08/02/20 21:00 08/31/20 17:06 DC 08/30/20 20:07 Tamsulosin HCl (Flomax) 0.4 mg DAILY PO 08/03/20 09:00 08/03/20 12:33 DC 08/03/20 09:47 Tamsulosin HCl (Flomax) 0.4 mg 1X ONCE PO 08/02/20 21:00 08/02/20 21:01 DC 08/02/20 21:01 Tamsulosin HCl (Flomax) 0.4 mg BID PO 08/03/20 14:00 08/31/20 17:06 DC 08/31/20 09:14 Risperidone (RisperDAL) 0.25 mg QHS PO 08/03/20 21:00 08/11/20 18:23 DC 08/10/20 20:07 Trazodone HCl (Desyrel) 100 mg QHS PO 08/05/20 21:00 08/31/20 17:06 DC 08/30/20 20:07 Levofloxacin (Levaquin) 250 mg DAILY PO 08/06/20 11:30 08/10/20 23:59 DC 08/10/20 08:38 Olanzapine (ZyPREXA ZYDIS) 5 mg PRN Q2HR PRN PO PSYCHOSIS 08/06/20 13:45 08/31/20 17:06 DC 08/30/20 22:34 Lorazepam (Ativan) 1 mg 1X ONCE PO 08/06/20 18:15 08/06/20 18:22 DC Lorazepam (Ativan) 1 mg 1X PRN PO ANXIETY / AGITATION 08/06/20 18:30 08/07/20 00:00 DC 08/06/20 18:52 Lactobacillus Rhamnosus (Culturelle) 1 cap BID PO 08/07/20 21:00 08/31/20 17:06 DC 08/31/20 09:13 Sertraline HCl (Zoloft) 25 mg QHS PO 08/10/20 21:00 08/19/20 17:06 DC 08/18/20 20:41 Risperidone (RisperDAL) 0.5 mg QHS PO 08/11/20 21:00 08/19/20 17:06 DC 08/18/20 20:41 Cephalexin HCl (Keflex) 500 mg TID PO 08/17/20 14:00 08/24/20 13:59 DC 08/24/20 11:09 Sertraline HCl (Zoloft) 50 mg QHS PO 08/19/20 21:00 08/31/20 17:06 DC 08/30/20 20:07 Risperidone (RisperDAL) 0.25 mg 0900,1300,1700 PO 08/20/20 09:00 08/19/20 17:11 DC Risperidone (RisperDAL) 0.25 mg 0900,1300,1700 PO 08/19/20 17:15 08/31/20 17:06 DC 08/31/20 13:11 Mirtazapine (Remeron) 7.5 mg QHS PO 08/20/20 21:00 08/31/20 17:06 DC 08/30/20 20:06 Lidocaine HCl (Xylocaine 2% Topical 30gm Tube) 1 olu PRN DAILY PRN TP PAIN 08/24/20 15:00 08/31/20 17:06 DC I have reviewed the current psychotropics carefully including drug interactions. Risk benefit ratio favors no change other than as noted in my dictated progress note. Diagnosis: Problems: (1) Impulse control disorder, unspecified (2) Vascular dementia with delusions (3) Anxiety disorder, unspecified (4) Vascular dementia with depression (5) Major neurocognitive disorder PRABHAKAR MOLINA MD Aug 31, 2020 21:15
--- NOTE | 2020-09-02 22:01 | DS ---
DATE OF DISCHARGE: 08/31/2020 DISCHARGE SUMMARY/PSYCHIATRIC PROGRESS NOTE This late entry date of service 08/31/2020 covers the elements not covered in my initial note. REASON FOR ADMISSION: Please refer to the admission history for details. Briefly, the patient is a 74-year-old male referred to us on account of increasing agitation, aggression, confusion, paranoia. He was living at home with his and attempted to artem the with a paring knife in hand. Behaviors were deemed dangerous, unmanageable. He is getting more confused, psychotic, agitated and had failed outpatient psychiatric interventions resulting in this referral. SIGNIFICANT FINDINGS AND CLINICAL COURSE: Following admission, the patient was seen daily individually by myself from a psychiatric standpoint, medical followup with Dr. Traylor/Dr. Art. The patient was extremely agitated, confused, restless initially. Adjustments were made in his psychotropics and he seemed to do better on a combination of Risperdal 0.25 mg 0900, 1300, 1700, Zyprexa p.r.n., trazodone 50 mg at bedtime p.r.n., may repeat x 2. Trazodone 100 mg at bedtime scheduled, Zoloft 50 mg at bedtime, Remeron 7.5 mg at bedtime, melatonin 3 mg at bedtime. He was followed medically per Dr. Traylor/Dr. Art and was having urinary retention, treated with catheter and ultimately on 08/31/2020, he was determined by Dr. Art to need placement of a suprapubic catheter and was transitioned to [facility] in [place] for this since we do not have an urologist here. Prior to his discharge, he was reviewed at a treatment team meeting with the entire team and nursing staff Verna Kebede Paula McInerney, Nicky, social service staff and Mel, activity therapy staff. He remained confused, but was ambulating better on his own, even though he had stopped ambulating for several days prior to this and had remained in a wheelchair. Paranoia was better. Confusion persisted, but generally from a psychiatric standpoint, he was improved behaviorally. REVIEW OF SYSTEMS: No CV, , pulmonary, eye, ENT system symptoms on review. MENTAL STATUS EXAM: Oriented to himself, time, and situation. Insight, judgment, recent and remote memory, attention, concentration, fund of knowledge poor, consistent with his diagnosis. FINAL DIAGNOSES: Major depressive disorder with psychotic features; major neurocognitive disorder, Alzheimer, vascular with delusion, depression; anxiety disorder, unspecified; impulse control disorder, unspecified, urinary retention, needing possible suprapubic catheter placement. Rest unchanged from admission. DISCHARGE MEDICATIONS: Please refer to the MRAD. DISCHARGE INSTRUCTIONS: Outpatient psychiatric and medical followup at the [facility]. Time for discharge day management greater than 30 minutes. MAN Jyoti MOLINA MD DR: NUBIA/romina JOB#: [id number] / [id number]
== END 2020-08-31 04:05 | disposition home or self-care (01) | DRG 885 ==
LOC: GEROPSY 15:04
PROVIDERS: ADMIT Psychiatry & Neurology Psychiatry; ATTEND Psychiatry & Neurology Psychiatry
DX: F32.3 Major depressive disorder, single episode, severe with psychotic features (principal); F05 Delirium due to known physiological condition; F01.51 Vascular dementia, unspecified severity, with behavioral disturbance; F02.81 Dementia in other diseases classified elsewhere, unspecified severity, with behavioral disturbance; I69.359 Hemiplegia and hemiparesis following cerebral infarction affecting unspecified side; N39.0 Urinary tract infection, site not specified; Z20.822 Contact with and (suspected) exposure to COVID-19; I10 Essential (primary) hypertension; K21.9 Gastro-esophageal reflux disease without esophagitis; N52.9 Male erectile dysfunction, unspecified; F41.9 Anxiety disorder, unspecified; F63.9 Impulse disorder, unspecified; G30.9 Alzheimer's disease, unspecified; R31.0 Gross hematuria; R33.8 Other retention of urine; Z79.899 Other long term (current) drug therapy; Z90.49 Acquired absence of other specified parts of digestive tract
CPT/HCPCS: 36415; 70450; 73502; 73560; 80053; 80061; 81001; 82306; 82607; 83036; 83540; 83550; 83735; 84436; 84443; 84480; 85025; 85379; 86592; 87077; 87086; 87186; 93005; U0003; 97110; 97116; 97530; 97535

== ENCOUNTER 2020-09-15 11:52 | Inpatient (IN) | payer MEDICARE ==
[~2020-09-15] VITALS: Ht 188 cm; Wt 90.2 kg
[~2020-09-15 11:52] MED LIST: FENO48TA16 PO; FLUT16SP21 NS; LUTE20CA4 PO; METO50TA29 PO; MIRT-37 PO; MULT-114 PO; OLAN5TAB7 PO; PANT40TA6 PO
[2020-09-15 20:00] VITALS: BP 132/79
[2020-09-15] MEDS ORDERED: ACETAMINOPHEN 325 MG TABLET PO ONE (20:56)
[2020-09-15] MEDS: MIRTAZAPINE 15 MG TABLET PO SCH (21:00)
--- NOTE | 2020-09-15 21:29 | EKG ---
[address] [address] Test Date: 2020-09-15 Test Time: 20:50:58 Pat Name: GLYNN WELLS Department: Room: 111 A Gender: M Stave Block Splitter: : 1945 Requested By: RICHARD BALDWIN Order Number: [id number] Reading MD: Measurements Intervals [place] Rate: 82 P: 36 IA: 178 QRS: 11 QRSD: 84 T: 65 QT: 362 QTc: 426 Interpretive Statements SINUS RHYTHM R-S TRANSITION ZONE IN V LEADS DISPLACED TO THE RIGHT NO SPECIFIC ECG ABNORMALITIES RI6.01 No previous ECG available for comparison
[2020-09-15 21:37] LABS: HEMATOCRIT 44.6 % (39.0-53.0); HEMOGLOBIN 14.9 g/dL (13.0-17.5); RED BLOOD COUNT 4.89 x10^6/uL (4.30-5.70); RED CELL DISTRIBUTION WIDTH 13.7 % (11.5-14.5); WHITE BLOOD COUNT 8.1 x10^3/uL (4.0-11.0)
[2020-09-15 21:54] LABS: ALBUMIN/GLOBULIN RATIO 0.8 (1.0-1.7); CALCIUM 8.9 mg/dL (8.5-10.1); CREATININE 1.2 mg/dL (0.7-1.3); GFR 58.9; MAGNESIUM 2.1 mg/dL (1.8-2.4); POTASSIUM 3.9 mmol/L (3.5-5.1); TOTAL BILIRUBIN 0.4 mg/dL (0.2-1.0)
[2020-09-15 22:39] LABS: BILIRUBIN,URINE NEG (NEG); COLOR,URINE YELLOW; GLUCOSE,URINE NEG (NEG)
[2020-09-15 22:40] LABS: NITRITE,URINE POS (NEG); RBC,URINE >40 /HPF (0-2)
[2020-09-15 22:41] LABS: BACTERIA,URINE MOD /HPF (0-FEW); CLARITY,URINE HAZY; SQUAMOUS EPITHELIAL CELL,UR FEW /LPF; WBC,URINE 20-40 /HPF (0-4)
[2020-09-16 08:02] VITALS: BP 139/84
[2020-09-16] MEDS ORDERED: NON FORMULARY ITEM (Lutein 20 MG) PO SCH (09:00)
[2020-09-16] MEDS: METOPROLOL SUCC 24HR ER 50 MG TAB.ER.24H. PO SCH (09:16)
[2020-09-16] MEDS: MULTIVITAMIN I-VITE TABLET. PO SCH (09:16)
[2020-09-16] MEDS: PANTOPRAZOLE 40 MG TABLET. PO SCH (09:16)
[2020-09-16] MEDS: FENOFIBRATE NANOCRYSTALLIZED 48 MG TABLET PO SCH (09:17)
[2020-09-16] MEDS: FLUTICASONE 50MCG/NASAL SPRAY 16GM BOTTLE. NS SCH (09:17)
--- NOTE | 2020-09-16 09:48 | HP ---
ADMIT DATE: 09/15/2020 ATTENDING PHYSICIAN: Dr. Baldwin. We are asked to see this patient prior to going to the Senior Behavior Unit. HISTORY OF PRESENT ILLNESS: The patient is a 74-year-old gentleman from [place], [place]. He is well known to us. He was here a month ago. At that time, he was on the Senior Behavioral Unit for several weeks, lots of problem with urinary retention. We had straight cath along with a Hernandez catheter placed. He pulled it out. He had some trauma. There was no urologic consultation. We were unable to insert another Hernandez catheter. Arrangements were made for transfer the patient to [facility] in [place], [place]. I spoke with his urologist who does not have privileges there. He is recommended a higher level of care. In any event, it was hoped that they could place a suprapubic catheter; however, I am not aware of the details. He ended up getting just a Hernandez replaced and he is back to our senior Behavior Unit. He does not appear toxic at this time. He will be admitted back to the Senior Behavior Unit following COVID swabs. PAST MEDICAL HISTORY: In addition to the urinary retention, significant for vascular dementia with delusional behavior, anxiety, agitation, neurocognitive disorder and inability to function. 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 CURRENT MEDICATIONS: Include TriCor, fluticasone, Lutein, metoprolol, Remeron, multivitamin, olanzapine, and Protonix. ALLERGIES: He has no known drug allergies. SOCIAL HISTORY: Nonsmoker, nondrinker. He is a retired [place]. FAMILY HISTORY: Noncontributory. REVIEW OF SYSTEMS: Unobtainable. He is fairly alert. He could not give me further details. PHYSICAL EXAMINATION: GENERAL: When I saw him, this is a pleasant, confused elderly gentleman. INITIAL VITAL SIGNS: Showed he was afebrile, temperature 97.6 degrees Fahrenheit, blood pressure 132/79 mmHg, oxygen saturation 94% on room air. HEENT: Head is without trauma. Pupils are reactive. Sclerae nonicteric. Oropharynx is clear. NECK: Supple, no bruits. LUNGS: Good breath sounds. CARDIOVASCULAR: Showed regular heart tones. No gallops. ABDOMEN: Soft. EXTREMITIES: Without edema. NEUROLOGIC: Pleasantly confused. Hernandez catheter in place. PERTINENT LABORATORY STUDIES: Hemoglobin repeated today is 14.9 g/dL with a white count of 8100. Electrolytes all within normal range. Nonfasting blood sugar 124. Transaminases were normal. Urinalysis is going to be abnormal due to ____ indwelling catheter. Coronavirus swab is pending. ASSESSMENT: 1. A 74-year-old gentleman with profound dementia with behavioral issues. 2. Urinary retention, necessitating transfer to [place] for placement of catheter. 3. Degenerative arthritis. PLAN: 1. Admit to the inpatient unit. 2. Meds reviewed and restarted. 3. Await serology coronavirus once that is available and negative, he can go back upstairs to the Senior Behavior Unit. RICAHRD BALDWIN MD DR: BRIDGET/romina JOB#: [id number] / [id number]
[2020-09-16 12:02] LABS: THYROID STIM HORMONE (TSH) 3.482 uIU/mL (0.358-3.740)
[2020-09-16 12:43] VITALS: BP 108/71
[2020-09-16] MEDS: MIRTAZAPINE 15 MG TABLET PO SCH (19:49)
[2020-09-16 19:55] VITALS: BP 130/83
[2020-09-17 05:37] LABS: HEMOGLOBIN A1C 5.7 % (4.8-5.6)
[2020-09-17 06:26] VITALS: BP 129/83
--- NOTE | 2020-09-17 08:45 | DS ---
DATE OF DISCHARGE: 09/17/2020 ATTENDING PHYSICIAN: Dr. Baldwin FINAL DISCHARGE DIAGNOSES: 1. A 74-year-old gentleman with profound dementia and behavioral issues. 2. Urinary retention, necessitating transfer to [place] for placement of catheter. 3. Degenerative arthritis. HISTORY AND PHYSICAL: Patient is a 74-year-old gentleman from [place]. He is a retired [place]. He has dementia with behavioral issues. He was on the Senior Behavior Unit. He had urinary retention because of trauma and inability to void. He was sent to [place], [place] for urologic consultation. He ended up having just a Hernandez catheter placed. He does not have a suprapubic catheter placed. He was sent back here for the Senior Behavior Unit. He was admitted to the medical floor to be screened for coronavirus. PHYSICAL EXAMINATION: Please see my dictated note. PERTINENT LABORATORY AND X-RAY STUDIES: On this admission, hemoglobin was 14.9 g/dL, white count 8100. Chemistry: BUN, creatinine, electrolytes all within normal range. Nonfasting blood sugar 124. Hemoglobin A1c 5.7. Cholesterol was 215. Transaminases were normal. Serology negative for coronavirus. COURSE IN THE HOSPITAL: The patient was admitted. He had screening lab work. Diet was advanced. Hernandez catheter was functioning. On the second hospital day, he had a negative coronavirus. He is discharged back to the Senior Behavior Unit. There are no changes on his meds. He will continue his TriCor, fluticasone, Lutein, metoprolol, Remeron, multivitamin, olanzapine and Protonix dose is unchanged. He is a DNR per advanced directives. He was discharged then to the Senior Behavior Unit in stable condition with explicit instructions and followup care. RICHARD BALDWIN MD DR: BRIDGET/romina JOB#: [id number] / [id number]
[2020-09-17 08:48] VITALS: BP 129/83
[2020-09-17] MEDS: PANTOPRAZOLE 40 MG TABLET. PO SCH (08:48)
[2020-09-17] MEDS: METOPROLOL SUCC 24HR ER 50 MG TAB.ER.24H. PO SCH (08:48)
[2020-09-17] MEDS: MULTIVITAMIN I-VITE TABLET. PO SCH (08:48)
[2020-09-17] MEDS: FENOFIBRATE NANOCRYSTALLIZED 48 MG TABLET PO SCH (08:49)
[2020-09-17] MEDS: FLUTICASONE 50MCG/NASAL SPRAY 16GM BOTTLE. NS SCH (08:49)
== END 2020-09-17 10:23 | DRG 884 ==
LOC: 1 SOUTH 19:54
PROVIDERS: ADMIT Hospitalist; ATTEND Hospitalist
DX: F01.51 Vascular dementia, unspecified severity, with behavioral disturbance (principal); R33.9 Retention of urine, unspecified; M19.90 Unspecified osteoarthritis, unspecified site; Z66 Do not resuscitate; F41.9 Anxiety disorder, unspecified; Z20.822 Contact with and (suspected) exposure to COVID-19
CPT/HCPCS: 36415; 80053; 80061; 81001; 82306; 82607; 83036; 83735; 84443; 85027; 85379; 86592; 87077; 87086; 93005; J2060; U0003

== ENCOUNTER 2020-09-17 10:23 | Inpatient (IN) | payer MEDICARE ==
[~2020-09-17] VITALS: Ht 188 cm; Wt 83.8 kg
[2020-09-17 11:02] VITALS: BP 106/73
[2020-09-17] MEDS ORDERED: MAGNESIUM HYDROXIDE 2,400 MG/30 ML ORAL.SUSP. PO PRN (12:30)
[2020-09-17] MEDS ORDERED: METHYL SALICYLATE/MENTHOL TOPICAL OINTMENT 57GM TUBE. TP PRN (12:30)
[2020-09-17] MEDS ORDERED: MAG HYDROX/AL HYDROX/SIMETH 30 ML ORAL.SUSP PO PRN (12:30)
[2020-09-17] MEDS: QUEtiapine 25 MG TABLET. PO PRN ×2 (16:10→19:40)
[2020-09-17 16:15] VITALS: BP 115/52
[2020-09-17] MEDS: MIRTAZAPINE 15 MG TABLET PO SCH (19:40)
[2020-09-17] MEDS: traZODone 50 MG TABLET. PO PRN (19:40)
[2020-09-17] MEDS: OLANZapine 2.5 MG TABLET PO SCH (19:40)
[2020-09-17] MEDS: ACETAMINOPHEN 325 MG TABLET PO PRN (21:08)
--- NOTE | 2020-09-17 21:29 | PDOC ---
Exam Note: Manish Note: Please also refer to the separate dictated note~for this date of service dictated separately.~Patient seen individually. Discussed the patient with Nursing staff reviewed the chart.~Reviewed interim history and current functioning. Reviewed vital signs,~Labs/ Radiology~and current medications noted below. Continue current treatment with the changes noted in the dictated addendum note Assessment: Vital Signs/I&O: Vital Signs Date Time Temp Pulse Resp B/P (MAP) Pulse Ox O2 Delivery O2 Flow Rate FiO2 09/17/20 16:15 97.8 108 20 115/52 (73) 97 Room Air Current Medications: Meds: Current Medications Medications (Trade) Dose Ordered Sig/Sonia Route PRN Reason Start Time Stop Time Status Last Admin Dose Admin Mirtazapine (Remeron) 15 mg QHS PO 09/17/20 21:00 09/17/20 19:40 Acetaminophen (Tylenol) 650 mg PRN Q6HRS PRN PO MILD PAIN / TEMP > 100.3'F 09/17/20 12:30 09/17/20 21:08 Quetiapine Fumarate (SEROquel) 25 mg PRN Q2HRS PRN PO ANXIETY / AGITATION 09/17/20 14:45 09/17/20 19:40 Olanzapine (ZyPREXA) 2.5 mg TID PO 09/17/20 21:00 09/17/20 19:40 Trazodone HCl (Desyrel) 50 mg PRN QHS PRN PO INSOMNIA, MAY REPEAT X1 09/17/20 14:45 09/17/20 19:40 I have reviewed the current psychotropics carefully including drug interactions. Risk benefit ratio favors no change other than as noted in my dictated progress note. Diagnosis: Problems: (1) Psychotic disorder (2) Vascular dementia with delusions (3) Anxiety disorder, unspecified (4) Vascular dementia with depression (5) Major neurocognitive disorder (6) Impulse control disorder, unspecified PRABHAKAR MOLINA MD Sep 17, 2020 21:29
--- NOTE | 2020-09-17 23:51 | HP ---
ADMIT DATE: 09/17/2020 This note covers elements not covered in my initial note of 09/17/2020. IDENTIFYING DATA: The patient is a 74-year-old male who is readmitted to us from [facility] where he was transferred from our service by Dr. Art for consideration of his suprapubic catheter, consequent to recurrent urinary obstruction to his outflow tract. Reportedly, [facility], the patient needed a Hernandez catheter. He remained confused, agitated, paranoid, disruptive and was therefore referred back to us for psychiatric stabilization. CHIEF COMPLAINT: "I don't know." The patient responded after I asked him when he returned here and why. HISTORY OF PRESENT ILLNESS: The patient has a history of major depressive disorder, major neurocognitive disorder, vascular with delusion, depression. He had previously been living at home with his , getting agitated, chasing her around with a sharp object, oblivious of what he was doing. Behaviors were deemed dangerous, unmanageable, resulting in the initial referral. He had many medical complications and then was transferred as above and returns now. No clear history of bipolar disorder, suicidal or homicidal ideation. The patient tends to have significant sundowning, pinching at staff, trying to rip off the watch of the wrist of nursing staff, agitated. PAST PSYCHIATRIC HISTORY: As above. MEDICAL HISTORY: Urinary retention, hypertension, history of CVAs, TIAs. Current UTI. DIET: Regular. CODE STATUS: DNR. ALLERGIES: Negative. Ambulates up ad joelle with walker and wheelchair. CURRENT PSYCHOTROPICS: Seroquel 25 mg p.r.n., max 100 mg in 24 hours; Zyprexa 2.5 mg t.i.d., trazodone 50 mg at bedtime p.r.n., may repeat x 1. On further clarification discussing with LAILA Rangel, in fact, some of the patient's psychotropics have been changed and he is currently on Remeron 15 mg at bedtime, Zyprexa 5 mg a day, Zoloft 50 mg at bedtime. We will change him back to Zyprexa 2.[address] of the 5 mg a day. Maintain Remeron 15 mg at bedtime, Zoloft at current dosage. We will also add trazodone 50 mg at bedtime p.r.n. insomnia, may repeat x 1 since he slept poorly and this has been chronic. We will add Seroquel 25 mg q.2 hours p.r.n. psychosis, agitation, max 100 mg in 24 hours. FAMILY HISTORY: Noncontributory. SOCIAL HISTORY: No history of alcohol, drug abuse, physical, sexual or elder abuse. He is not known to be a perpetrator. He was previously living at home with his . REVIEW OF SYSTEMS: No CV, , pulmonary, eye, ENT system symptoms on review. Ambulation impaired with walker. MENTAL STATUS EXAMINATION: Oriented to himself. Insight, judgment, recent and remote memory, attention, concentration, fund of knowledge poor, consistent with his diagnosis. LABORATORY DATA: Reviewed. IMPRESSION: Major neurocognitive disorder, Alzheimer, vascular with delusion, depression, behavioral disturbance; history of major depressive disorder with psychotic features; anxiety disorder, unspecified; impulse control disorder, unspecified. Rest as above. PLAN: Admit to Geropsychiatry Unit at [facility]. I will see the patient daily individually from a psychiatric standpoint. Medical followup with Dr. Traylor/Dr. Art. Continue the patient on his current psychotropics. Observe baseline, consider low dose Depakote for impulse control problems. Adjust further as clinically indicated. Estimated length of stay 10-12 days. MAN Jyoti MOLINA MD DR: NUBIA/romina JOB#: [id number] / [id number]
[2020-09-18 06:01] VITALS: BP 120/82
[2020-09-18 06:05] LABS: BASO % 0 % (0-3); EOS # 0.4 x10^3/uL (0.0-0.7); EOS % 6 % (0-3); HEMATOCRIT 43.3 % (39.0-53.0); HEMOGLOBIN 14.6 g/dL (13.0-17.5); LYMPH # 1.7 x10^3/uL (1.0-4.8); LYMPH % 25 % (24-48); MEAN CORPUSCULAR HEMOGLOBIN 30 pg (25-35); MEAN CORPUSCULAR HGB CONC 34 g/dL (31-37); MEAN CORPUSCULAR VOLUME 90 fL (79-100); MONO % 15 % (0-9); NEUT # 3.7 x10^3uL (1.8-7.7); NEUT % 54 % (31-73); PLATELET COUNT 253 x10^3/uL (140-400); RED CELL DISTRIBUTION WIDTH 13.8 % (11.5-14.5); WHITE BLOOD COUNT 6.9 x10^3/uL (4.0-11.0)
[2020-09-18 06:23] LABS: ALBUMIN 2.9 g/dL (3.4-5.0); ALBUMIN/GLOBULIN RATIO 0.8 (1.0-1.7); CALCIUM 8.9 mg/dL (8.5-10.1); CREATININE 1.2 mg/dL (0.7-1.3); GFR 58.9; POTASSIUM 3.6 mmol/L (3.5-5.1); TOTAL BILIRUBIN 0.6 mg/dL (0.2-1.0); TOTAL PROTEIN 6.6 g/dL (6.4-8.2)
[2020-09-18] MEDS: PANTOPRAZOLE 40 MG TABLET. PO SCH (09:07)
[2020-09-18] MEDS: OLANZapine 2.5 MG TABLET PO SCH ×2 (09:07→14:07)
[2020-09-18] MEDS: METOPROLOL SUCC 24HR ER 50 MG TAB.ER.24H. PO SCH (09:07)
[2020-09-18] MEDS: FENOFIBRATE NANOCRYSTALLIZED 48 MG TABLET PO SCH (09:07)
[2020-09-18] MEDS: MULTIVITAMIN with MINERAL TABLET. PO SCH (09:07)
[2020-09-18] MEDS: FLUTICASONE 50MCG/NASAL SPRAY 16GM BOTTLE. NS SCH (09:08)
--- NOTE | 2020-09-18 14:52 | TX PLAN ---
Interdisciplinary Tx Plan Admission Information Sep 17, 2020 at 10:23 Legal Status (on Admission): Voluntary DPOA/Guardian Name: Halina oGmez Contact Other Contact Name: Halina Gomez Other Contact Verified Code Status: DNR Allergies: Coded Allergies: No Known Drug Allergies (Unverified , 08/01/20) Diagnoses Primary Diagnosis: MDD with psychotic features, Major Neurocognitive D/O, Alzheimers, vascular with delusions, depression Reasons for Admission: Aggressive, Agitated, Sig. Change Sleep, Confusion/Disoriented Problem in Patient's Words: This whole catheter issue has caused him to become unsteady again and needs to be stable. Additional Admission Comments: According to the intake, pt is agitated, verbally aggressive, disoriented, insomnia, hostile and sundowning Problems Active Problems: verbally aggressive agitated physically aggressive labile Inactive Problems: Medication compliant Pt Strengths/Limitations Ability for [place]: Poor Cognitive Functioning/Ability: Fair Communication Skills/Ability: Fair Financial Resources: Good Insight/Judgement: Poor Intellectual Ability: Fair Physical Health: Poor Social Skills: Fair Stability in Family: Good Stability in School/Work: Poor Verbal Skills: Fair Discharge Criteria Discharge Criteria: No need for close observ., Adequate arrangements @DC, Improved behavior, Improved mood/thought Preliminary Discharge Plan Preliminary DC Plan: Placement Needed Special Precautions Fall Risk: Moderate Initial D/C Plan Pt will need placement upon dishcarge; request for SNF/rehab facility Identified Discharge Needs: Referrals for a higher level of care Currently Utilized Resources Currently Utilized Resources/P: Primary Care Physician Referrals Community Resources: Referrals to higher level of care. Identified Problems/Hx/Goals Objectives/Short-Term Goals Short Term Goals: Dec. Aggression, Dec. Outbursts, Medication Stabilization, Monitor Med Effects, Promote Coping Skill Short Term Goals in Patient's: N/A Interventions/Frequency Staff Interventions/Frequency&: Psychiatrist to assess pt at least 3x per week for medication management and effects. Social Work to assess pt at least 2x per week for barriers to care and finalize discharge plans with all involved parties. Nursing to assess behaviors, medication effects and completion of 15 minute checks daily. Encourage group participation in activities (if applicable) or 1:1 engagement based off activity dept goals. 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 Education: Pt graduated from High school (12th grade). Community Follow-up Primary Care Physician Possible referrals for psychiatrist while at placement Community Provider/Family Inpu: Pt is concerned about pt medications creating urinary trouble and wishes for these effects to be monitored closely. Pt needs to be able to walk before he can return home which is why pt may need to be at SNF/rehab after discharge. 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
[2020-09-18 15:29] VITALS: BP 101/66
[2020-09-18] MEDS: QUEtiapine 25 MG TABLET. PO PRN ×2 (16:24→20:32)
[2020-09-18 16:58] LABS: BILIRUBIN,URINE NEG (NEG); CLARITY,URINE CLOUDY; COLOR,URINE YELLOW; GLUCOSE,URINE NEG (NEG)
[2020-09-18 16:59] LABS: NITRITE,URINE POS (NEG); UROBILINOGEN,URINE 0.2 mg/dL (0.2 mg/dL)
[2020-09-18 17:00] LABS: BACTERIA,URINE MOD /HPF (0-FEW); RBC,URINE >40 /HPF (0-2); SQUAMOUS EPITHELIAL CELL,UR OCC /LPF
[2020-09-18] MEDS ORDERED: LIDOCAINE 2% JELLY 10ML IN APPLICATOR. MM PRN (17:15)
[2020-09-18 20:15] LABS: BASO # 0.1 x10^3/uL (0.0-0.2); BASO % 1 % (0-3); EOS # 0.3 x10^3/uL (0.0-0.7); EOS % 4 % (0-3); HEMATOCRIT 44.7 % (39.0-53.0); LYMPH # 1.3 x10^3/uL (1.0-4.8); LYMPH % 17 % (24-48); MEAN CORPUSCULAR HEMOGLOBIN 30 pg (25-35); MEAN CORPUSCULAR HGB CONC 34 g/dL (31-37); MEAN CORPUSCULAR VOLUME 90 fL (79-100); MONO # 0.9 x10^3/uL (0.0-1.1); MONO % 12 % (0-9); NEUT # 5.3 x10^3uL (1.8-7.7); NEUT % 67 % (31-73); PLATELET COUNT 256 x10^3/uL (140-400); RED BLOOD COUNT 4.96 x10^6/uL (4.30-5.70); RED CELL DISTRIBUTION WIDTH 13.3 % (11.5-14.5); WHITE BLOOD COUNT 7.9 x10^3/uL (4.0-11.0)
[2020-09-18] MEDS: MIRTAZAPINE 15 MG TABLET PO SCH (20:32)
[2020-09-18] MEDS: traZODone 50 MG TABLET. PO PRN (20:32)
--- NOTE | 2020-09-18 21:56 | PDOC ---
Exam Note: Manish Note: Please also refer to the separate dictated note~for this date of service dictated separately.~Patient seen individually. Discussed the patient with Nursing staff reviewed the chart.~Reviewed interim history and current functioning. Reviewed vital signs,~Labs/ Radiology~and current medications noted below. Continue current treatment with the changes noted in the dictated addendum note Assessment: Vital Signs/I&O: Vital Signs Date Time Temp Pulse Resp B/P (MAP) Pulse Ox O2 Delivery O2 Flow Rate FiO2 09/18/20 15:29 98.1 100 20 101/66 (78) 96 Room Air I & O 09/17/20 09/17/20 09/18/20 15:00 23:00 07:00 Intake Total 480 ml 600 ml Output Total 350 ml 300 ml Balance 480 ml 250 ml -300 ml Labs: Laboratory Tests Test 09/18/20 05:51 09/18/20 15:45 09/18/20 20:07 White Blood Count 6.9 x10^3/uL (4.0-11.0) 7.9 x10^3/uL (4.0-11.0) Red Blood Count 4.80 x10^6/uL (4.30-5.70) 4.96 x10^6/uL (4.30-5.70) Hemoglobin 14.6 g/dL (13.0-17.5) 15.0 g/dL (13.0-17.5) Hematocrit 43.3 % (39.0-53.0) 44.7 % (39.0-53.0) Mean Corpuscular Volume 90 fL (79-100) 90 fL (79-100) Mean Corpuscular Hemoglobin 30 pg (25-35) 30 pg (25-35) Mean Corpuscular Hemoglobin Concent 34 g/dL (31-37) 34 g/dL (31-37) Red Cell Distribution Width 13.8 % (11.5-14.5) 13.3 % (11.5-14.5) Platelet Count 253 x10^3/uL (140-400) 256 x10^3/uL (140-400) Neutrophils (%) (Auto) 54 % (31-73) 67 % (31-73) Lymphocytes (%) (Auto) 25 % (24-48) 17 % (24-48) L Monocytes (%) (Auto) 15 % (0-9) H 12 % (0-9) H Eosinophils (%) (Auto) 6 % (0-3) H 4 % (0-3) H Basophils (%) (Auto) 0 % (0-3) 1 % (0-3) Neutrophils # (Auto) 3.7 x10^3uL (1.8-7.7) 5.3 x10^3uL (1.8-7.7) Lymphocytes # (Auto) 1.7 x10^3/uL (1.0-4.8) 1.3 x10^3/uL (1.0-4.8) Monocytes # (Auto) 1.0 x10^3/uL (0.0-1.1) 0.9 x10^3/uL (0.0-1.1) Eosinophils # (Auto) 0.4 x10^3/uL (0.0-0.7) 0.3 x10^3/uL (0.0-0.7) Basophils # (Auto) 0.0 x10^3/uL (0.0-0.2) 0.1 x10^3/uL (0.0-0.2) Sodium Level 144 mmol/L (136-145) Potassium Level 3.6 mmol/L (3.5-5.1) Chloride Level 106 mmol/L (98-107) Carbon Dioxide Level 30 mmol/L (21-32) Anion Gap 8 (6-14) Blood Urea Nitrogen 23 mg/dL (8-26) Creatinine 1.2 mg/dL (0.7-1.3) Estimated GFR (Cockcroft-Gault) 58.9 BUN/Creatinine Ratio 19 (6-20) Glucose Level 109 mg/dL (70-99) H Calcium Level 8.9 mg/dL (8.5-10.1) Total Bilirubin 0.6 mg/dL (0.2-1.0) Aspartate Amino Transferase (AST) 19 U/L (15-37) Alanine Aminotransferase (ALT) 26 U/L (16-63) Alkaline Phosphatase 95 U/L (46-116) Total Protein 6.6 g/dL (6.4-8.2) Albumin 2.9 g/dL (3.4-5.0) L Albumin/Globulin Ratio 0.8 (1.0-1.7) L Urine Collection Type U cath Urine Color Yellow Urine Clarity Cloudy Urine pH 5.5 Urine Specific [place] >=1.030 Urine Protein 100 mg/dl (NEG-TRACE) Urine Glucose (UA) Neg mg/dL (NEG) Urine Ketones (Stick) Neg mg/dL (NEG) Urine Blood Large (NEG) Urine Nitrite Pos (NEG) Urine Bilirubin Neg (NEG) Urine Urobilinogen Dipstick 0.2 mg/dL (0.2 mg/dL) Urine Leukocyte Esterase Small (NEG) Urine RBC >40 /HPF (0-2) Urine WBC 11-20 /HPF (0-4) Urine Squamous Epithelial Cells Occ /LPF Urine Bacteria Mod /HPF (0-FEW) Prothrombin Time 10.4 SEC (9.4-11.4) Prothrombin Time INR 1.0 (0.9-1.1) Current Medications: Meds: Current Medications Medications (Trade) Dose Ordered Sig/Sonia Route PRN Reason Start Time Stop Time Status Last Admin Dose Admin Fenofibrate (Tricor) 48 mg DAILY PO 09/18/20 09:00 09/18/20 09:07 Fluticasone Propionate (Flonase) 2 spray DAILY NS 09/18/20 09:00 09/18/20 09:08 Metoprolol Succinate (Toprol Xl) 50 mg DAILY PO 09/18/20 09:00 09/18/20 09:07 Pantoprazole Sodium (Protonix) 40 mg DAILY PO 09/18/20 09:00 09/18/20 09:07 Multivitamins/ Calcium (Thera-M Plus) 1 tab DAILY PO 09/18/20 09:00 09/18/20 09:07 I have reviewed the current psychotropics carefully including drug interactions. Risk benefit ratio favors no change other than as noted in my dictated progress note. Diagnosis: Problems: (1) Psychotic disorder (2) Impulse control disorder, unspecified (3) Vascular dementia with delusions (4) Anxiety disorder, unspecified (5) Vascular dementia with depression (6) Major neurocognitive disorder PRABHAKAR MOLINA MD Sep 18, 2020 21:55
[2020-09-19 05:32] VITALS: BP 151/83
[2020-09-19] MEDS: FLUTICASONE 50MCG/NASAL SPRAY 16GM BOTTLE. NS SCH (09:00)
[2020-09-19] MEDS: FENOFIBRATE NANOCRYSTALLIZED 48 MG TABLET PO SCH (09:00)
[2020-09-19] MEDS: PANTOPRAZOLE 40 MG TABLET. PO SCH (09:01)
[2020-09-19] MEDS: METOPROLOL SUCC 24HR ER 50 MG TAB.ER.24H. PO SCH (09:01)
[2020-09-19] MEDS: MULTIVITAMIN with MINERAL TABLET. PO SCH (09:01)
[2020-09-19] MEDS: ACETAMINOPHEN 325 MG TABLET PO PRN ×2 (10:20→14:16)
[2020-09-19 15:45] VITALS: BP 107/73
[2020-09-19] MEDS: QUEtiapine 25 MG TABLET. PO PRN (20:11)
[2020-09-19] MEDS: MIRTAZAPINE 15 MG TABLET PO SCH (20:11)
[2020-09-19] MEDS: traZODone 50 MG TABLET. PO PRN (20:11)
--- NOTE | 2020-09-19 21:12 | PDOC ---
Exam Note: Manish Note: Please also refer to the separate dictated note~for this date of service dictated separately.~Patient seen individually. Discussed the patient with Nursing staff reviewed the chart.~Reviewed interim history and current functioning. Reviewed vital signs,~Labs/ Radiology~and current medications noted below. Continue current treatment with the changes noted in the dictated addendum note Assessment: Vital Signs/I&O: Vital Signs Date Time Temp Pulse Resp B/P (MAP) Pulse Ox O2 Delivery O2 Flow Rate FiO2 09/19/20 15:45 99.8 95 20 107/73 (84) 95 09/18/20 15:29 Room Air I & O 09/18/20 09/18/20 09/19/20 15:00 23:00 07:00 Intake Total 900 ml 600 ml Balance 900 ml 600 ml Current Medications: I have reviewed the current psychotropics carefully including drug interactions. Risk benefit ratio favors no change other than as noted in my dictated progress note. Diagnosis: Problems: (1) Dementia in Alzheimer's disease with delusions (2) Dementia in Alzheimer's disease with depression (3) Dementia of the Alzheimer's type with early onset with behavioral disturbance (4) Major depressive disorder with psychotic features (5) Impulse control disorder, unspecified (6) Anxiety disorder, unspecified (7) Vascular dementia with depression (8) Vascular dementia with delusions (9) Major neurocognitive disorder PRABHAKAR MOLINA MD Sep 19, 2020 21:12
[2020-09-20 06:07] VITALS: BP 137/84
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
[2020-09-20] MEDS: FLUTICASONE 50MCG/NASAL SPRAY 16GM BOTTLE. NS SCH (12:01)
[2020-09-20] MEDS: MULTIVITAMIN with MINERAL TABLET. PO SCH (12:01)
[2020-09-20] MEDS: PANTOPRAZOLE 40 MG TABLET. PO SCH (12:01)
[2020-09-20] MEDS: METOPROLOL SUCC 24HR ER 50 MG TAB.ER.24H. PO SCH (12:01)
[2020-09-20] MEDS: FENOFIBRATE NANOCRYSTALLIZED 48 MG TABLET PO SCH (12:01)
[2020-09-20 16:05] VITALS: BP 111/72
[2020-09-20] MEDS: traZODone 50 MG TABLET. PO PRN (19:42)
[2020-09-20] MEDS: MIRTAZAPINE 15 MG TABLET PO SCH (19:42)
[2020-09-20] MEDS: QUEtiapine 25 MG TABLET. PO PRN (19:42)
--- NOTE | 2020-09-20 21:09 | PDOC ---
Exam Note: Manish Note: Please also refer to the separate dictated note~for this date of service dictated separately.~Patient seen individually. Discussed the patient with Nursing staff reviewed the chart.~Reviewed interim history and current functioning. Reviewed vital signs,~Labs/ Radiology~and current medications noted below. Continue current treatment with the changes noted in the dictated addendum note Assessment: Vital Signs/I&O: Vital Signs Date Time Temp Pulse Resp B/P (MAP) Pulse Ox O2 Delivery O2 Flow Rate FiO2 09/20/20 16:05 98.9 88 16 111/72 (85) 94 09/18/20 15:29 Room Air I & O 09/19/20 09/19/20 09/20/20 15:00 23:00 07:00 Intake Total 720 ml 480 ml Balance 720 ml 480 ml Current Medications: Meds: Current Medications Medications (Trade) Dose Ordered Sig/Sonia Route PRN Reason Start Time Stop Time Status Last Admin Dose Admin Fenofibrate (Tricor) 48 mg DAILY PO 09/18/20 09:00 09/20/20 12:01 Fluticasone Propionate (Flonase) 2 spray DAILY NS 09/18/20 09:00 09/20/20 12:01 Metoprolol Succinate (Toprol Xl) 50 mg DAILY PO 09/18/20 09:00 09/20/20 12:01 Mirtazapine (Remeron) 15 mg QHS PO 09/17/20 21:00 09/20/20 19:42 Olanzapine (ZyPREXA ZYDIS) 5 mg DAILY PO 09/18/20 09:00 09/17/20 15:00 DC Pantoprazole Sodium (Protonix) 40 mg DAILY PO 09/18/20 09:00 09/20/20 12:01 Multivitamins/ Calcium (Thera-M Plus) 1 tab DAILY PO 09/18/20 09:00 09/20/20 12:01 Acetaminophen (Tylenol) 650 mg PRN Q6HRS PRN PO MILD PAIN / TEMP > 100.3'F 09/17/20 12:30 09/19/20 14:16 Multi-Ingredient Ointment (Analgesic [place]) 1 olu PRN QID PRN TP MUSCLE PAIN 09/17/20 12:30 Al Hydroxide/Mg Hydroxide (Mylanta Plus Xs) 15 ml PRN AFTMEALHC PRN PO DYSPEPSIA 09/17/20 12:30 Magnesium Hydroxide (Milk Of Magnesia) 2,400 mg PRN QHS PRN PO CONSTIPATION 09/17/20 12:30 Quetiapine Fumarate (SEROquel) 25 mg PRN Q2HRS PRN PO ANXIETY / AGITATION 09/17/20 14:45 09/20/20 19:42 Olanzapine (ZyPREXA) 2.5 mg TID PO 09/17/20 21:00 09/18/20 20:32 DC 09/18/20 14:07 Trazodone HCl (Desyrel) 50 mg PRN QHS PRN PO INSOMNIA, MAY REPEAT X1 09/17/20 14:45 09/20/20 19:42 Lidocaine HCl (Uro-Jet) 1 olu PRN DAILY PRN MM SEE ADMIN INSTRUCTIONS 09/18/20 17:15 I have reviewed the current psychotropics carefully including drug interactions. Risk benefit ratio favors no change other than as noted in my dictated progress note. Diagnosis: Problems: (1) Major depressive disorder with psychotic features (2) Dementia of the Alzheimer's type with early onset with behavioral disturbance (3) Dementia in Alzheimer's disease with delusions (4) Vascular dementia with depression (5) Anxiety disorder, unspecified (6) Vascular dementia with delusions (7) Impulse control disorder, unspecified (8) Dementia in Alzheimer's disease with depression (9) Major neurocognitive disorder PRABHAKAR MOLINA MD Sep 20, 2020 21:09
[2020-09-21 05:12] VITALS: BP 122/77
[2020-09-21] MEDS: MULTIVITAMIN with MINERAL TABLET. PO SCH (07:25)
[2020-09-21] MEDS: FENOFIBRATE NANOCRYSTALLIZED 48 MG TABLET PO SCH (07:25)
[2020-09-21] MEDS: METOPROLOL SUCC 24HR ER 50 MG TAB.ER.24H. PO SCH (07:25)
[2020-09-21] MEDS: PANTOPRAZOLE 40 MG TABLET. PO SCH (07:25)
[2020-09-21] MEDS: FLUTICASONE 50MCG/NASAL SPRAY 16GM BOTTLE. NS SCH (07:25)
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
[2020-09-21 15:23] VITALS: BP 129/83
[2020-09-21] MEDS: MIRTAZAPINE 15 MG TABLET PO SCH (20:37)
[2020-09-21] MEDS: traZODone 50 MG TABLET. PO PRN (20:37)
--- NOTE | 2020-09-21 21:07 | PDOC ---
Exam Note: Manish Note: Please also refer to the separate dictated note~for this date of service dictated separately.~Patient seen individually. Discussed the patient with Nursing staff reviewed the chart.~Reviewed interim history and current functioning. Reviewed vital signs,~Labs/ Radiology~and current medications noted below. Continue current treatment with the changes noted in the dictated addendum note Assessment: Vital Signs/I&O: Vital Signs Date Time Temp Pulse Resp B/P (MAP) Pulse Ox O2 Delivery O2 Flow Rate FiO2 09/21/20 15:23 99.0 95 18 129/83 (98) 94 Room Air I & O 09/20/20 09/20/20 09/21/20 14:59 22:59 06:59 Intake Total 360 ml 600 ml Balance 360 ml 600 ml Current Medications: Meds: Current Medications Medications (Trade) Dose Ordered Sig/Sonia Route PRN Reason Start Time Stop Time Status Last Admin Dose Admin Fenofibrate (Tricor) 48 mg DAILY PO 09/18/20 09:00 09/21/20 07:25 Fluticasone Propionate (Flonase) 2 spray DAILY NS 09/18/20 09:00 09/21/20 07:25 Metoprolol Succinate (Toprol Xl) 50 mg DAILY PO 09/18/20 09:00 09/21/20 07:25 Mirtazapine (Remeron) 15 mg QHS PO 09/17/20 21:00 09/21/20 20:37 Olanzapine (ZyPREXA ZYDIS) 5 mg DAILY PO 09/18/20 09:00 09/17/20 15:00 DC Pantoprazole Sodium (Protonix) 40 mg DAILY PO 09/18/20 09:00 09/21/20 07:25 Multivitamins/ Calcium (Thera-M Plus) 1 tab DAILY PO 09/18/20 09:00 09/21/20 07:25 Acetaminophen (Tylenol) 650 mg PRN Q6HRS PRN PO MILD PAIN / TEMP > 100.3'F 09/17/20 12:30 09/19/20 14:16 Multi-Ingredient Ointment (Analgesic [place]) 1 olu PRN QID PRN TP MUSCLE PAIN 09/17/20 12:30 Al Hydroxide/Mg Hydroxide (Mylanta Plus Xs) 15 ml PRN AFTMEALHC PRN PO DYSPEPSIA 09/17/20 12:30 Magnesium Hydroxide (Milk Of Magnesia) 2,400 mg PRN QHS PRN PO CONSTIPATION 09/17/20 12:30 Quetiapine Fumarate (SEROquel) 25 mg PRN Q2HRS PRN PO ANXIETY / AGITATION 09/17/20 14:45 09/20/20 19:42 Olanzapine (ZyPREXA) 2.5 mg TID PO 09/17/20 21:00 09/18/20 20:32 DC 09/18/20 14:07 Trazodone HCl (Desyrel) 50 mg PRN QHS PRN PO INSOMNIA, MAY REPEAT X1 09/17/20 14:45 09/21/20 20:37 Lidocaine HCl (Uro-Jet) 1 olu PRN DAILY PRN MM SEE ADMIN INSTRUCTIONS 09/18/20 17:15 I have reviewed the current psychotropics carefully including drug interactions. Risk benefit ratio favors no change other than as noted in my dictated progress note. Diagnosis: Problems: (1) Major depressive disorder with psychotic features (2) Dementia of the Alzheimer's type with early onset with behavioral disturbance (3) Dementia in Alzheimer's disease with delusions (4) Dementia in Alzheimer's disease with depression (5) Major neurocognitive disorder (6) Vascular dementia with depression (7) Anxiety disorder, unspecified (8) Impulse control disorder, unspecified (9) Vascular dementia with delusions PRABHAKAR MOLINA MD Sep 21, 2020 21:07
[2020-09-22 05:58] VITALS: BP 114/75
[2020-09-22] MEDS: METOPROLOL SUCC 24HR ER 50 MG TAB.ER.24H. PO SCH (07:46)
[2020-09-22] MEDS: MULTIVITAMIN with MINERAL TABLET. PO SCH (07:46)
[2020-09-22] MEDS: FLUTICASONE 50MCG/NASAL SPRAY 16GM BOTTLE. NS SCH (07:46)
[2020-09-22] MEDS: PANTOPRAZOLE 40 MG TABLET. PO SCH (07:46)
[2020-09-22] MEDS: FENOFIBRATE NANOCRYSTALLIZED 48 MG TABLET PO SCH (07:46)
[2020-09-22] MEDS: ACETAMINOPHEN 325 MG TABLET PO PRN (14:05)
[2020-09-22 15:38] VITALS: BP 120/83
[2020-09-22 15:43] VITALS: BP 120/83
[2020-09-22] MEDS: MIRTAZAPINE 15 MG TABLET PO SCH (19:58)
[2020-09-22] MEDS: traZODone 50 MG TABLET. PO PRN (19:58)
--- NOTE | 2020-09-22 20:52 | PDOC ---
Exam Note: Manish Note: Please also refer to the separate dictated note~for this date of service dictated separately.~Patient seen individually. Discussed the patient with Nursing staff reviewed the chart.~Reviewed interim history and current functioning. Reviewed vital signs,~Labs/ Radiology~and current medications noted below. Continue current treatment with the changes noted in the dictated addendum note Assessment: Vital Signs/I&O: Vital Signs Date Time Temp Pulse Resp B/P (MAP) Pulse Ox O2 Delivery O2 Flow Rate FiO2 09/22/20 15:43 98.8 96 19 120/83 (95) 95 Room Air I & O 09/21/20 09/21/20 09/22/20 15:00 23:00 07:00 Intake Total 700 ml 360 ml Balance 700 ml 360 ml Current Medications: Meds: Current Medications Medications (Trade) Dose Ordered Sig/Sonia Route PRN Reason Start Time Stop Time Status Last Admin Dose Admin Fenofibrate (Tricor) 48 mg DAILY PO 09/18/20 09:00 09/22/20 07:46 Fluticasone Propionate (Flonase) 2 spray DAILY NS 09/18/20 09:00 09/22/20 07:46 Metoprolol Succinate (Toprol Xl) 50 mg DAILY PO 09/18/20 09:00 09/22/20 07:46 Mirtazapine (Remeron) 15 mg QHS PO 09/17/20 21:00 09/22/20 19:58 Olanzapine (ZyPREXA ZYDIS) 5 mg DAILY PO 09/18/20 09:00 09/17/20 15:00 DC Pantoprazole Sodium (Protonix) 40 mg DAILY PO 09/18/20 09:00 09/22/20 07:46 Multivitamins/ Calcium (Thera-M Plus) 1 tab DAILY PO 09/18/20 09:00 09/22/20 07:46 Acetaminophen (Tylenol) 650 mg PRN Q6HRS PRN PO MILD PAIN / TEMP > 100.3'F 09/17/20 12:30 09/22/20 14:05 Multi-Ingredient Ointment (Analgesic [place]) 1 olu PRN QID PRN TP MUSCLE PAIN 09/17/20 12:30 Al Hydroxide/Mg Hydroxide (Mylanta Plus Xs) 15 ml PRN AFTMEALHC PRN PO DYSPEPSIA 09/17/20 12:30 Magnesium Hydroxide (Milk Of Magnesia) 2,400 mg PRN QHS PRN PO CONSTIPATION 09/17/20 12:30 Quetiapine Fumarate (SEROquel) 25 mg PRN Q2HRS PRN PO ANXIETY / AGITATION 09/17/20 14:45 09/20/20 19:42 Olanzapine (ZyPREXA) 2.5 mg TID PO 09/17/20 21:00 09/18/20 20:32 DC 09/18/20 14:07 Trazodone HCl (Desyrel) 50 mg PRN QHS PRN PO INSOMNIA, MAY REPEAT X1 09/17/20 14:45 09/22/20 19:58 Lidocaine HCl (Uro-Jet) 1 olu PRN DAILY PRN MM SEE ADMIN INSTRUCTIONS 09/18/20 17:15 I have reviewed the current psychotropics carefully including drug interactions. Risk benefit ratio favors no change other than as noted in my dictated progress note. Diagnosis: Problems: (1) Impulse control disorder, unspecified (2) Vascular dementia with delusions (3) Anxiety disorder, unspecified (4) Vascular dementia with depression (5) Major neurocognitive disorder (6) Dementia in Alzheimer's disease with depression (7) Dementia in Alzheimer's disease with delusions (8) Dementia of the Alzheimer's type with early onset with behavioral disturbance (9) Major depressive disorder with psychotic features PRABHAKAR MOLINA MD Sep 22, 2020 20:52
[2020-09-23 05:37] VITALS: BP 129/85
[2020-09-23] MEDS: FLUTICASONE 50MCG/NASAL SPRAY 16GM BOTTLE. NS SCH (08:16)
[2020-09-23] MEDS: METOPROLOL SUCC 24HR ER 50 MG TAB.ER.24H. PO SCH (08:16)
[2020-09-23] MEDS: PANTOPRAZOLE 40 MG TABLET. PO SCH (08:17)
[2020-09-23] MEDS: MULTIVITAMIN with MINERAL TABLET. PO SCH (08:17)
[2020-09-23] MEDS: FENOFIBRATE NANOCRYSTALLIZED 48 MG TABLET PO SCH (08:17)
[2020-09-23] MEDS: QUEtiapine 25 MG TABLET. PO PRN ×2 (12:45→22:43)
[2020-09-23 14:23] LABS: BASO % 1 % (0-3); EOS # 0.3 x10^3/uL (0.0-0.7); EOS % 3 % (0-3); HEMATOCRIT 47.7 % (39.0-53.0); HEMOGLOBIN 15.7 g/dL (13.0-17.5); LYMPH # 2.5 x10^3/uL (1.0-4.8); LYMPH % 30 % (24-48); MEAN CORPUSCULAR HEMOGLOBIN 30 pg (25-35); MEAN CORPUSCULAR HGB CONC 33 g/dL (31-37); MEAN CORPUSCULAR VOLUME 92 fL (79-100); MONO # 1.1 x10^3/uL (0.0-1.1); MONO % 14 % (0-9); NEUT # 4.2 x10^3uL (1.8-7.7); NEUT % 52 % (31-73); PLATELET COUNT 222 x10^3/uL (140-400); RED BLOOD COUNT 5.21 x10^6/uL (4.30-5.70); RED CELL DISTRIBUTION WIDTH 13.5 % (11.5-14.5); WHITE BLOOD COUNT 8.1 x10^3/uL (4.0-11.0)
[2020-09-23 14:32] LABS: CALCIUM 9.5 mg/dL (8.5-10.1); CREATININE 1.1 mg/dL (0.7-1.3); GFR 65.1; POTASSIUM 3.9 mmol/L (3.5-5.1)
[2020-09-23 14:37] LABS: ALBUMIN 3.5 g/dL (3.4-5.0); ALBUMIN/GLOBULIN RATIO 0.8 (1.0-1.7); TOTAL PROTEIN 7.8 g/dL (6.4-8.2)
[2020-09-23] MEDS: ACETAMINOPHEN 325 MG TABLET PO PRN ×2 (16:00→21:51)
[2020-09-23 16:25] VITALS: BP 130/77
--- NOTE | 2020-09-23 16:31 | RAD ---
Exam: CT of abdomen and pelvis without contrast INDICATION: Hematuria with clots TECHNIQUE: Sequential axial images through the abdomen and pelvis obtained without IV contrast. Sagit paras and coronal reformatted images were reconstructed from the axial data and reviewed. Comparisons: None FINDINGS: Heart size is normal. No pericardial effusion. Visualized lung bases are clear. No pleural effusion. Evaluation of solid organs limited secondary to noncontrast technique. Liver, spleen, pancreas, and adrenals are unremarkable. Gallbladder surgically absent. No perinephric inflammation or hydronephrosis. No renal or ureteral calculi are identified. Bladder is distended and appears thin-walled. Prostate is not enlarged. Diverticulosis noted at the sigmoid colon without evidence of acute diverticulitis. Remainder large a nd small bowel are unremarkable. Appendix is not identified. No free intra-abdominal air or fluid. No obstruction. Abdominal aorta has a normal course and caliber. No enlarged intra-abdominal lymph nodes are identified. No suspicious osseous lesions or acute fractures. IMPRESSION: 1. No acute process identified within the abdomen or pelvis. 2. Diverticulosis without evidence of acute diverticulitis. Exposure: One or more of the following in the visualized dose reduction techniques were utilized for this examination: 1. Automated exposure control 2. Adjustment of the MA and/or KV according to patient size 3. Use of iterative of reconstructive technique Electronically signed by: Polo Reis MD (09/23/2020 4:29 PM) [facility]
[2020-09-23] MEDS: MIRTAZAPINE 15 MG TABLET PO SCH (17:16)
[2020-09-23] MEDS: traZODone 50 MG TABLET. PO PRN ×2 (21:51→22:43)
--- NOTE | 2020-09-23 22:00 | PDOC ---
Exam Note: Manish Note: Please also refer to the separate dictated note~for this date of service dictated separately.~Patient seen individually. Discussed the patient with Nursing staff reviewed the chart.~Reviewed interim history and current functioning. Reviewed vital signs,~Labs/ Radiology~and current medications noted below. Continue current treatment with the changes noted in the dictated addendum note Assessment: Vital Signs/I&O: Vital Signs Date Time Temp Pulse Resp B/P (MAP) Pulse Ox O2 Delivery O2 Flow Rate FiO2 09/23/20 16:25 101.7 109 20 130/77 (94) 94 Room Air I & O 09/22/20 09/22/20 09/23/20 15:00 23:00 07:00 Intake Total 480 ml 360 ml Balance 480 ml 360 ml Labs: Laboratory Tests Test 09/23/20 14:05 White Blood Count 8.1 x10^3/uL (4.0-11.0) Red Blood Count 5.21 x10^6/uL (4.30-5.70) Hemoglobin 15.7 g/dL (13.0-17.5) Hematocrit 47.7 % (39.0-53.0) Mean Corpuscular Volume 92 fL (79-100) Mean Corpuscular Hemoglobin 30 pg (25-35) Mean Corpuscular Hemoglobin Concent 33 g/dL (31-37) Red Cell Distribution Width 13.5 % (11.5-14.5) Platelet Count 222 x10^3/uL (140-400) Neutrophils (%) (Auto) 52 % (31-73) Lymphocytes (%) (Auto) 30 % (24-48) Monocytes (%) (Auto) 14 % (0-9) H Eosinophils (%) (Auto) 3 % (0-3) Basophils (%) (Auto) 1 % (0-3) Neutrophils # (Auto) 4.2 x10^3uL (1.8-7.7) Lymphocytes # (Auto) 2.5 x10^3/uL (1.0-4.8) Monocytes # (Auto) 1.1 x10^3/uL (0.0-1.1) Eosinophils # (Auto) 0.3 x10^3/uL (0.0-0.7) Basophils # (Auto) 0.0 x10^3/uL (0.0-0.2) Sodium Level 143 mmol/L (136-145) Potassium Level 3.9 mmol/L (3.5-5.1) Chloride Level 104 mmol/L (98-107) Carbon Dioxide Level 26 mmol/L (21-32) Anion Gap 13 (6-14) Blood Urea Nitrogen 26 mg/dL (8-26) Creatinine 1.1 mg/dL (0.7-1.3) Estimated GFR (Cockcroft-Gault) 65.1 BUN/Creatinine Ratio 24 (6-20) H Glucose Level 109 mg/dL (70-99) H Calcium Level 9.5 mg/dL (8.5-10.1) Total Bilirubin 1.0 mg/dL (0.2-1.0) Aspartate Amino Transferase (AST) 33 U/L (15-37) Alanine Aminotransferase (ALT) 33 U/L (16-63) Alkaline Phosphatase 95 U/L (46-116) Total Protein 7.8 g/dL (6.4-8.2) Albumin 3.5 g/dL (3.4-5.0) Albumin/Globulin Ratio 0.8 (1.0-1.7) L Current Medications: Meds: Laboratory Tests Test 09/23/20 14:05 White Blood Count 8.1 x10^3/uL Red Blood Count 5.21 x10^6/uL Hemoglobin 15.7 g/dL Hematocrit 47.7 % Mean Corpuscular Volume 92 fL Mean Corpuscular Hemoglobin 30 pg Mean Corpuscular Hemoglobin Concent 33 g/dL Red Cell Distribution Width 13.5 % Platelet Count 222 x10^3/uL Neutrophils (%) (Auto) 52 % Lymphocytes (%) (Auto) 30 % Monocytes (%) (Auto) 14 % Eosinophils (%) (Auto) 3 % Basophils (%) (Auto) 1 % Neutrophils # (Auto) 4.2 x10^3uL Lymphocytes # (Auto) 2.5 x10^3/uL Monocytes # (Auto) 1.1 x10^3/uL Eosinophils # (Auto) 0.3 x10^3/uL Basophils # (Auto) 0.0 x10^3/uL Sodium Level 143 mmol/L Potassium Level 3.9 mmol/L Chloride Level 104 mmol/L Carbon Dioxide Level 26 mmol/L Anion Gap 13 Blood Urea Nitrogen 26 mg/dL Creatinine 1.1 mg/dL Estimated GFR (Cockcroft-Gault) 65.1 BUN/Creatinine Ratio 24 Glucose Level 109 mg/dL Calcium Level 9.5 mg/dL Total Bilirubin 1.0 mg/dL Aspartate Amino Transf (AST/SGOT) 33 U/L Alanine Aminotransferase (ALT/SGPT) 33 U/L Alkaline Phosphatase 95 U/L Total Protein 7.8 g/dL Albumin 3.5 g/dL Albumin/Globulin Ratio 0.8 Current Medications Medications (Trade) Dose Ordered Sig/Sonia Route PRN Reason Start Time Stop Time Status Last Admin Dose Admin Fenofibrate (Tricor) 48 mg DAILY PO 09/18/20 09:00 09/23/20 08:17 Fluticasone Propionate (Flonase) 2 spray DAILY NS 09/18/20 09:00 09/23/20 08:16 Metoprolol Succinate (Toprol Xl) 50 mg DAILY PO 09/18/20 09:00 09/23/20 08:16 Mirtazapine (Remeron) 15 mg QHS PO 09/17/20 21:00 09/23/20 17:16 Olanzapine (ZyPREXA ZYDIS) 5 mg DAILY PO 09/18/20 09:00 09/17/20 15:00 DC Pantoprazole Sodium (Protonix) 40 mg DAILY PO 09/18/20 09:00 09/23/20 08:17 Multivitamins/ Calcium (Thera-M Plus) 1 tab DAILY PO 09/18/20 09:00 09/23/20 08:17 Acetaminophen (Tylenol) 650 mg PRN Q6HRS PRN PO MILD PAIN / TEMP > 100.3'F 09/17/20 12:30 09/23/20 21:51 Multi-Ingredient Ointment (Analgesic [place]) 1 olu PRN QID PRN TP MUSCLE PAIN 09/17/20 12:30 09/23/20 21:23 Al Hydroxide/Mg Hydroxide (Mylanta Plus Xs) 15 ml PRN AFTMEALHC PRN PO DYSPEPSIA 09/17/20 12:30 Magnesium Hydroxide (Milk Of Magnesia) 2,400 mg PRN QHS PRN PO CONSTIPATION 09/17/20 12:30 Quetiapine Fumarate (SEROquel) 25 mg PRN Q2HRS PRN PO ANXIETY / AGITATION 09/17/20 14:45 09/23/20 12:45 Olanzapine (ZyPREXA) 2.5 mg TID PO 09/17/20 21:00 09/18/20 20:32 DC 09/18/20 14:07 Trazodone HCl (Desyrel) 50 mg PRN QHS PRN PO INSOMNIA, MAY REPEAT X1 09/17/20 14:45 09/23/20 21:51 Lidocaine HCl (Uro-Jet) 1 olu PRN DAILY PRN MM SEE ADMIN INSTRUCTIONS 09/18/20 17:15 I have reviewed the current psychotropics carefully including drug interactions. Risk benefit ratio favors no change other than as noted in my dictated progress note. 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
[2020-09-24 05:52] VITALS: BP 130/76
[2020-09-24] MEDS: PANTOPRAZOLE 40 MG TABLET. PO SCH (08:06)
[2020-09-24] MEDS: METOPROLOL SUCC 24HR ER 50 MG TAB.ER.24H. PO SCH (08:06)
[2020-09-24] MEDS: FENOFIBRATE NANOCRYSTALLIZED 48 MG TABLET PO SCH (08:06)
[2020-09-24] MEDS: MULTIVITAMIN with MINERAL TABLET. PO SCH (08:06)
[2020-09-24] MEDS: FLUTICASONE 50MCG/NASAL SPRAY 16GM BOTTLE. NS SCH (08:07)
[2020-09-24 09:39] LABS: BASO % 1 % (0-3); EOS % 0 % (0-3); HEMATOCRIT 41.8 % (39.0-53.0); LYMPH % 16 % (24-48); MEAN CORPUSCULAR HEMOGLOBIN 30 pg (25-35); MEAN CORPUSCULAR HGB CONC 34 g/dL (31-37); MEAN CORPUSCULAR VOLUME 90 fL (79-100); MONO % 16 % (0-9); NEUT # 4.3 x10^3uL (1.8-7.7); NEUT % 68 % (31-73); PLATELET COUNT 147 x10^3/uL (140-400); RED BLOOD COUNT 4.62 x10^6/uL (4.30-5.70); RED CELL DISTRIBUTION WIDTH 13.4 % (11.5-14.5); WHITE BLOOD COUNT 6.3 x10^3/uL (4.0-11.0)
[2020-09-24 09:49] LABS: ALBUMIN/GLOBULIN RATIO 0.8 (1.0-1.7); CALCIUM 9.1 mg/dL (8.5-10.1); GFR 72.6; TOTAL BILIRUBIN 1.1 mg/dL (0.2-1.0); TOTAL PROTEIN 6.6 g/dL (6.4-8.2)
[2020-09-24] MEDS: QUEtiapine 25 MG TABLET. PO PRN (12:47)
[2020-09-24 15:55] VITALS: BP 101/66
[2020-09-24] MEDS ORDERED: DIVALPROEX 125 MG CAP.SPRINK PO SCH (19:00)
[2020-09-24] MEDS: MIRTAZAPINE 15 MG TABLET PO SCH (19:54)
[2020-09-24] MEDS: traZODone 50 MG TABLET. PO PRN (19:54)
[2020-09-24] MEDS: ACETAMINOPHEN 325 MG TABLET PO PRN (19:56)
--- NOTE | 2020-09-24 20:58 | PDOC ---
Exam Note: Manish Note: This note is a late entry for 09/21/2020 covers elements not covered in my initial note. Subjective: The patient was seen face to face in the evening of 09/21/2020 with Roselyn ULLOA, discussed and reviewed the chart. He slept 8 hours previous night. The patient has been wandering. He is not having urinary retention and seems to be voiding inappropriate places but redirects. Review of Systems: Ambulation impaired in wheelchair. No CV, , pulmonary, eye, ENT system symptoms on review. Reliability poor. Mental Status Exam: The patient is oriented to himself. Insight and judgment, recent and remote memory, attention and concentration, fund of knowledge is poor consistent with his diagnosis. Laboratory Data: Reviewed. Impression: Major neurocognitive disorder Alzheimer vascular with delusion, depression, behavioral disturbance. Major depressive disorder with psychotic features. Anxiety disorder unspecified. Impulse control disorder unspecified. Plan: No change from initial note. Assessment: Vital Signs/I&O: Vital Signs Date Time Temp Pulse Resp B/P (MAP) Pulse Ox O2 Delivery O2 Flow Rate FiO2 09/24/20 15:55 98.0 92 18 101/66 (78) 97 Room Air I & O 09/23/20 09/23/20 09/24/20 15:00 23:00 07:00 Intake Total 0 ml 600 ml 120 ml Balance 0 ml 600 ml 120 ml Labs: Laboratory Tests Test 09/24/20 09:05 White Blood Count 6.3 x10^3/uL (4.0-11.0) Red Blood Count 4.62 x10^6/uL (4.30-5.70) Hemoglobin 14.0 g/dL (13.0-17.5) Hematocrit 41.8 % (39.0-53.0) Mean Corpuscular Volume 90 fL (79-100) Mean Corpuscular Hemoglobin 30 pg (25-35) Mean Corpuscular Hemoglobin Concent 34 g/dL (31-37) Red Cell Distribution Width 13.4 % (11.5-14.5) Platelet Count 147 x10^3/uL (140-400) Neutrophils (%) (Auto) 68 % (31-73) Lymphocytes (%) (Auto) 16 % (24-48) L Monocytes (%) (Auto) 16 % (0-9) H Eosinophils (%) (Auto) 0 % (0-3) Basophils (%) (Auto) 1 % (0-3) Neutrophils # (Auto) 4.3 x10^3uL (1.8-7.7) Lymphocytes # (Auto) 1.0 x10^3/uL (1.0-4.8) Monocytes # (Auto) 1.0 x10^3/uL (0.0-1.1) Eosinophils # (Auto) 0.0 x10^3/uL (0.0-0.7) Basophils # (Auto) 0.0 x10^3/uL (0.0-0.2) Sodium Level 141 mmol/L (136-145) Potassium Level 4.0 mmol/L (3.5-5.1) Chloride Level 104 mmol/L (98-107) Carbon Dioxide Level 28 mmol/L (21-32) Anion Gap 9 (6-14) Blood Urea Nitrogen 29 mg/dL (8-26) H Creatinine 1.0 mg/dL (0.7-1.3) Estimated GFR (Cockcroft-Gault) 72.6 BUN/Creatinine Ratio 29 (6-20) H Glucose Level 114 mg/dL (70-99) H Calcium Level 9.1 mg/dL (8.5-10.1) Total Bilirubin 1.1 mg/dL (0.2-1.0) H Aspartate Amino Transferase (AST) 54 U/L (15-37) H Alanine Aminotransferase (ALT) 44 U/L (16-63) Alkaline Phosphatase 84 U/L (46-116) Total Protein 6.6 g/dL (6.4-8.2) Albumin 3.0 g/dL (3.4-5.0) L Albumin/Globulin Ratio 0.8 (1.0-1.7) L Current Medications: Meds: Laboratory Tests Test 09/24/20 09:05 White Blood Count 6.3 x10^3/uL Red Blood Count 4.62 x10^6/uL Hemoglobin 14.0 g/dL Hematocrit 41.8 % Mean Corpuscular Volume 90 fL Mean Corpuscular Hemoglobin 30 pg Mean Corpuscular Hemoglobin Concent 34 g/dL Red Cell Distribution Width 13.4 % Platelet Count 147 x10^3/uL Neutrophils (%) (Auto) 68 % Lymphocytes (%) (Auto) 16 % Monocytes (%) (Auto) 16 % Eosinophils (%) (Auto) 0 % Basophils (%) (Auto) 1 % Neutrophils # (Auto) 4.3 x10^3uL Lymphocytes # (Auto) 1.0 x10^3/uL Monocytes # (Auto) 1.0 x10^3/uL Eosinophils # (Auto) 0.0 x10^3/uL Basophils # (Auto) 0.0 x10^3/uL Sodium Level 141 mmol/L Potassium Level 4.0 mmol/L Chloride Level 104 mmol/L Carbon Dioxide Level 28 mmol/L Anion Gap 9 Blood Urea Nitrogen 29 mg/dL Creatinine 1.0 mg/dL Estimated GFR (Cockcroft-Gault) 72.6 BUN/Creatinine Ratio 29 Glucose Level 114 mg/dL Calcium Level 9.1 mg/dL Total Bilirubin 1.1 mg/dL Aspartate Amino Transf (AST/SGOT) 54 U/L Alanine Aminotransferase (ALT/SGPT) 44 U/L Alkaline Phosphatase 84 U/L Total Protein 6.6 g/dL Albumin 3.0 g/dL Albumin/Globulin Ratio 0.8 Current Medications Medications (Trade) Dose Ordered Sig/Sonia Route PRN Reason Start Time Stop Time Status Last Admin Dose Admin Fenofibrate (Tricor) 48 mg DAILY PO 09/18/20 09:00 09/24/20 08:06 Fluticasone Propionate (Flonase) 2 spray DAILY NS 09/18/20 09:00 09/24/20 08:07 Metoprolol Succinate (Toprol Xl) 50 mg DAILY PO 09/18/20 09:00 09/24/20 08:06 Mirtazapine (Remeron) 15 mg QHS PO 09/17/20 21:00 09/24/20 19:54 Olanzapine (ZyPREXA ZYDIS) 5 mg DAILY PO 09/18/20 09:00 09/17/20 15:00 DC Pantoprazole Sodium (Protonix) 40 mg DAILY PO 09/18/20 09:00 09/24/20 08:06 Multivitamins/ Calcium (Thera-M Plus) 1 tab DAILY PO 09/18/20 09:00 09/24/20 08:06 Acetaminophen (Tylenol) 650 mg PRN Q6HRS PRN PO MILD PAIN / TEMP > 100.3'F 09/17/20 12:30 09/24/20 19:56 Multi-Ingredient Ointment (Analgesic [place]) 1 olu PRN QID PRN TP MUSCLE PAIN 09/17/20 12:30 09/23/20 21:23 Al Hydroxide/Mg Hydroxide (Mylanta Plus Xs) 15 ml PRN AFTMEALHC PRN PO DYSPEPSIA 09/17/20 12:30 Magnesium Hydroxide (Milk Of Magnesia) 2,400 mg PRN QHS PRN PO CONSTIPATION 09/17/20 12:30 Quetiapine Fumarate (SEROquel) 25 mg PRN Q2HRS PRN PO ANXIETY / AGITATION 09/17/20 14:45 09/24/20 12:47 Olanzapine (ZyPREXA) 2.5 mg TID PO 09/17/20 21:00 09/18/20 20:32 DC 09/18/20 14:07 Trazodone HCl (Desyrel) 50 mg PRN QHS PRN PO INSOMNIA, MAY REPEAT X1 09/17/20 14:45 09/24/20 19:54 Lidocaine HCl (Uro-Jet) 1 olu PRN DAILY PRN MM SEE ADMIN INSTRUCTIONS 09/18/20 17:15 Divalproex Sodium (Depakote Sprinkles) 250 mg BIDWMEALS PO 09/24/20 19:00 09/24/20 19:05 DC Divalproex Sodium (Depakote Sprinkles) 250 mg BIDWMEALS PO 09/25/20 09:00 I have reviewed the current psychotropics carefully including drug interactions. Risk benefit ratio favors no change other than as noted in my dictated progress note. Diagnosis: Problems: (1) Impulse control disorder, unspecified (2) Vascular dementia with delusions (3) Anxiety disorder, unspecified (4) Vascular dementia with depression (5) Major neurocognitive disorder (6) Dementia in Alzheimer's disease with depression (7) Dementia in Alzheimer's disease with delusions (8) Dementia of the Alzheimer's type with early onset with behavioral disturbance PRABHAKAR MOLINA MD Sep 24, 2020 20:58
--- NOTE | 2020-09-24 21:20 | PDOC ---
Exam Note: Manish Note: Please also refer to the separate dictated note~for this date of service dictated separately.~Patient seen individually. Discussed the patient with Nursing staff reviewed the chart.~Reviewed interim history and current functioning. Reviewed vital signs,~Labs/ Radiology~and current medications noted below. Continue current treatment with the changes noted in the dictated addendum note Assessment: Vital Signs/I&O: Vital Signs Date Time Temp Pulse Resp B/P (MAP) Pulse Ox O2 Delivery O2 Flow Rate FiO2 09/24/20 15:55 98.0 92 18 101/66 (78) 97 Room Air I & O 09/23/20 09/23/20 09/24/20 15:00 23:00 07:00 Intake Total 0 ml 600 ml 120 ml Balance 0 ml 600 ml 120 ml Labs: Laboratory Tests Test 09/24/20 09:05 White Blood Count 6.3 x10^3/uL (4.0-11.0) Red Blood Count 4.62 x10^6/uL (4.30-5.70) Hemoglobin 14.0 g/dL (13.0-17.5) Hematocrit 41.8 % (39.0-53.0) Mean Corpuscular Volume 90 fL (79-100) Mean Corpuscular Hemoglobin 30 pg (25-35) Mean Corpuscular Hemoglobin Concent 34 g/dL (31-37) Red Cell Distribution Width 13.4 % (11.5-14.5) Platelet Count 147 x10^3/uL (140-400) Neutrophils (%) (Auto) 68 % (31-73) Lymphocytes (%) (Auto) 16 % (24-48) L Monocytes (%) (Auto) 16 % (0-9) H Eosinophils (%) (Auto) 0 % (0-3) Basophils (%) (Auto) 1 % (0-3) Neutrophils # (Auto) 4.3 x10^3uL (1.8-7.7) Lymphocytes # (Auto) 1.0 x10^3/uL (1.0-4.8) Monocytes # (Auto) 1.0 x10^3/uL (0.0-1.1) Eosinophils # (Auto) 0.0 x10^3/uL (0.0-0.7) Basophils # (Auto) 0.0 x10^3/uL (0.0-0.2) Sodium Level 141 mmol/L (136-145) Potassium Level 4.0 mmol/L (3.5-5.1) Chloride Level 104 mmol/L (98-107) Carbon Dioxide Level 28 mmol/L (21-32) Anion Gap 9 (6-14) Blood Urea Nitrogen 29 mg/dL (8-26) H Creatinine 1.0 mg/dL (0.7-1.3) Estimated GFR (Cockcroft-Gault) 72.6 BUN/Creatinine Ratio 29 (6-20) H Glucose Level 114 mg/dL (70-99) H Calcium Level 9.1 mg/dL (8.5-10.1) Total Bilirubin 1.1 mg/dL (0.2-1.0) H Aspartate Amino Transferase (AST) 54 U/L (15-37) H Alanine Aminotransferase (ALT) 44 U/L (16-63) Alkaline Phosphatase 84 U/L (46-116) Total Protein 6.6 g/dL (6.4-8.2) Albumin 3.0 g/dL (3.4-5.0) L Albumin/Globulin Ratio 0.8 (1.0-1.7) L Current Medications: I have reviewed the current psychotropics carefully including drug interactions. Risk benefit ratio favors no change other than as noted in my dictated progress note. Diagnosis: Problems: (1) Impulse control disorder, unspecified (2) Vascular dementia with delusions (3) Anxiety disorder, unspecified (4) Vascular dementia with depression (5) Major neurocognitive disorder (6) Dementia in Alzheimer's disease with depression (7) Dementia in Alzheimer's disease with delusions (8) Dementia of the Alzheimer's type with early onset with behavioral disturbance (9) Major depressive disorder with psychotic features PRABHAKAR MOLINA MD Sep 24, 2020 21:20
--- NOTE | 2020-09-24 21:20 | PDOC ---
Exam Note: Manish Note: This note is a late entry for 09/22/2020 covers elements not covered in my initial note. Subjective: The patient was seen face to face in the evening of 09/22/2020 with Jessica ULLOA, discussed and reviewed the chart. He slept 6-1/4 hours previous night. The patient has been incontinent of urine. Previous night he was abrasive, verbally aggressive, in the morning alert to himself, believes he is in [place], did attend some groups. He complains of right shoulder pain. Review of Systems: Ambulation impaired in walker. No CV, , pulmonary, eye, ENT system symptoms on review. Mental Status Exam: The patient is oriented to himself. Insight and judgment, recent and remote memory, attention and concentration, fund of knowledge is poor consistent with his diagnosis. Laboratory Data: Reviewed. Impression: Major neurocognitive disorder Alzheimer vascular with delusion, depression, behavioral disturbance. Major depressive disorder with psychotic features. Anxiety disorder unspecified. Impulse control disorder unspecified. Plan: No change from initial note. Assessment: Vital Signs/I&O: Vital Signs Date Time Temp Pulse Resp B/P (MAP) Pulse Ox O2 Delivery O2 Flow Rate FiO2 09/24/20 15:55 98.0 92 18 101/66 (78) 97 Room Air I & O 09/23/20 09/23/20 09/24/20 15:00 23:00 07:00 Intake Total 0 ml 600 ml 120 ml Balance 0 ml 600 ml 120 ml Labs: Laboratory Tests Test 09/24/20 09:05 White Blood Count 6.3 x10^3/uL (4.0-11.0) Red Blood Count 4.62 x10^6/uL (4.30-5.70) Hemoglobin 14.0 g/dL (13.0-17.5) Hematocrit 41.8 % (39.0-53.0) Mean Corpuscular Volume 90 fL (79-100) Mean Corpuscular Hemoglobin 30 pg (25-35) Mean Corpuscular Hemoglobin Concent 34 g/dL (31-37) Red Cell Distribution Width 13.4 % (11.5-14.5) Platelet Count 147 x10^3/uL (140-400) Neutrophils (%) (Auto) 68 % (31-73) Lymphocytes (%) (Auto) 16 % (24-48) L Monocytes (%) (Auto) 16 % (0-9) H Eosinophils (%) (Auto) 0 % (0-3) Basophils (%) (Auto) 1 % (0-3) Neutrophils # (Auto) 4.3 x10^3uL (1.8-7.7) Lymphocytes # (Auto) 1.0 x10^3/uL (1.0-4.8) Monocytes # (Auto) 1.0 x10^3/uL (0.0-1.1) Eosinophils # (Auto) 0.0 x10^3/uL (0.0-0.7) Basophils # (Auto) 0.0 x10^3/uL (0.0-0.2) Sodium Level 141 mmol/L (136-145) Potassium Level 4.0 mmol/L (3.5-5.1) Chloride Level 104 mmol/L (98-107) Carbon Dioxide Level 28 mmol/L (21-32) Anion Gap 9 (6-14) Blood Urea Nitrogen 29 mg/dL (8-26) H Creatinine 1.0 mg/dL (0.7-1.3) Estimated GFR (Cockcroft-Gault) 72.6 BUN/Creatinine Ratio 29 (6-20) H Glucose Level 114 mg/dL (70-99) H Calcium Level 9.1 mg/dL (8.5-10.1) Total Bilirubin 1.1 mg/dL (0.2-1.0) H Aspartate Amino Transferase (AST) 54 U/L (15-37) H Alanine Aminotransferase (ALT) 44 U/L (16-63) Alkaline Phosphatase 84 U/L (46-116) Total Protein 6.6 g/dL (6.4-8.2) Albumin 3.0 g/dL (3.4-5.0) L Albumin/Globulin Ratio 0.8 (1.0-1.7) L Current Medications: Meds: Laboratory Tests Test 09/24/20 09:05 White Blood Count 6.3 x10^3/uL Red Blood Count 4.62 x10^6/uL Hemoglobin 14.0 g/dL Hematocrit 41.8 % Mean Corpuscular Volume 90 fL Mean Corpuscular Hemoglobin 30 pg Mean Corpuscular Hemoglobin Concent 34 g/dL Red Cell Distribution Width 13.4 % Platelet Count 147 x10^3/uL Neutrophils (%) (Auto) 68 % Lymphocytes (%) (Auto) 16 % Monocytes (%) (Auto) 16 % Eosinophils (%) (Auto) 0 % Basophils (%) (Auto) 1 % Neutrophils # (Auto) 4.3 x10^3uL Lymphocytes # (Auto) 1.0 x10^3/uL Monocytes # (Auto) 1.0 x10^3/uL Eosinophils # (Auto) 0.0 x10^3/uL Basophils # (Auto) 0.0 x10^3/uL Sodium Level 141 mmol/L Potassium Level 4.0 mmol/L Chloride Level 104 mmol/L Carbon Dioxide Level 28 mmol/L Anion Gap 9 Blood Urea Nitrogen 29 mg/dL Creatinine 1.0 mg/dL Estimated GFR (Cockcroft-Gault) 72.6 BUN/Creatinine Ratio 29 Glucose Level 114 mg/dL Calcium Level 9.1 mg/dL Total Bilirubin 1.1 mg/dL Aspartate Amino Transf (AST/SGOT) 54 U/L Alanine Aminotransferase (ALT/SGPT) 44 U/L Alkaline Phosphatase 84 U/L Total Protein 6.6 g/dL Albumin 3.0 g/dL Albumin/Globulin Ratio 0.8 Current Medications Medications (Trade) Dose Ordered Sig/Sonia Route PRN Reason Start Time Stop Time Status Last Admin Dose Admin Fenofibrate (Tricor) 48 mg DAILY PO 09/18/20 09:00 09/24/20 08:06 Fluticasone Propionate (Flonase) 2 spray DAILY NS 09/18/20 09:00 09/24/20 08:07 Metoprolol Succinate (Toprol Xl) 50 mg DAILY PO 09/18/20 09:00 09/24/20 08:06 Mirtazapine (Remeron) 15 mg QHS PO 09/17/20 21:00 09/24/20 19:54 Olanzapine (ZyPREXA ZYDIS) 5 mg DAILY PO 09/18/20 09:00 09/17/20 15:00 DC Pantoprazole Sodium (Protonix) 40 mg DAILY PO 09/18/20 09:00 09/24/20 08:06 Multivitamins/ Calcium (Thera-M Plus) 1 tab DAILY PO 09/18/20 09:00 09/24/20 08:06 Acetaminophen (Tylenol) 650 mg PRN Q6HRS PRN PO MILD PAIN / TEMP > 100.3'F 09/17/20 12:30 09/24/20 19:56 Multi-Ingredient Ointment (Analgesic [place]) 1 olu PRN QID PRN TP MUSCLE PAIN 09/17/20 12:30 09/23/20 21:23 Al Hydroxide/Mg Hydroxide (Mylanta Plus Xs) 15 ml PRN AFTMEALHC PRN PO DYSPEPSIA 09/17/20 12:30 Magnesium Hydroxide (Milk Of Magnesia) 2,400 mg PRN QHS PRN PO CONSTIPATION 09/17/20 12:30 Quetiapine Fumarate (SEROquel) 25 mg PRN Q2HRS PRN PO ANXIETY / AGITATION 09/17/20 14:45 09/24/20 12:47 Olanzapine (ZyPREXA) 2.5 mg TID PO 09/17/20 21:00 09/18/20 20:32 DC 09/18/20 14:07 Trazodone HCl (Desyrel) 50 mg PRN QHS PRN PO INSOMNIA, MAY REPEAT X1 09/17/20 14:45 09/24/20 19:54 Lidocaine HCl (Uro-Jet) 1 olu PRN DAILY PRN MM SEE ADMIN INSTRUCTIONS 09/18/20 17:15 Divalproex Sodium (Depakote Sprinkles) 250 mg BIDWMEALS PO 09/24/20 19:00 09/24/20 19:05 DC Divalproex Sodium (Depakote Sprinkles) 250 mg BIDWMEALS PO 09/25/20 09:00 I have reviewed the current psychotropics carefully including drug interactions. Risk benefit ratio favors no change other than as noted in my dictated progress note. 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
[2020-09-25 05:59] VITALS: BP 137/85
[2020-09-25] MEDS: PANTOPRAZOLE 40 MG TABLET. PO SCH (08:25)
[2020-09-25] MEDS: MULTIVITAMIN with MINERAL TABLET. PO SCH (08:25)
[2020-09-25] MEDS: FENOFIBRATE NANOCRYSTALLIZED 48 MG TABLET PO SCH (08:25)
[2020-09-25] MEDS: METOPROLOL SUCC 24HR ER 50 MG TAB.ER.24H. PO SCH (08:26)
[2020-09-25] MEDS: FLUTICASONE 50MCG/NASAL SPRAY 16GM BOTTLE. NS SCH (08:27)
[2020-09-25] MEDS: DIVALPROEX 125 MG CAP.SPRINK PO SCH ×2 (08:27→16:19)
[2020-09-25 12:03] LABS: BILIRUBIN,URINE NEG (NEG); CLARITY,URINE CLOUDY; COLOR,URINE YELLOW; GLUCOSE,URINE NEG (NEG)
[2020-09-25 12:04] LABS: BACTERIA,URINE MANY /HPF (0-FEW); NITRITE,URINE POS (NEG); RBC,URINE 20-40 /HPF (0-2); WBC,URINE >40 /HPF (0-4)
[2020-09-25 16:02] VITALS: BP 108/72
[2020-09-25] MEDS: QUEtiapine 25 MG TABLET. PO PRN (16:19)
[2020-09-25] MEDS: MIRTAZAPINE 15 MG TABLET PO SCH (19:40)
--- NOTE | 2020-09-25 21:01 | PDOC ---
Exam Note: Manish Note: This note is a late entry for 09/23/2020 covers elements not covered in my initial note. Subjective: The patient was seen face to face in the evening of 09/23/2020 with Claire ULLOA, discussed and reviewed the chart. He slept 7-3/4 hours previous night. The patient remains somewhat anxious, restless, confused. He slept till breakfast time. He did get up for lunch. Received p.r.n. Seroquel, then did better. He has had some urinary blood clots today. Dr. Traylor has ordered CT abdomen and pelvis which is unremarkable. He had intermittent fever 101.[address] Traylor has ordered a blood culture. Defer medical management to Dr. Traylor. Review of Systems: Ambulation impaired in walker. No CV, pulmonary, eye, ENT system symptoms on review. Mental Status Exam: The patient is oriented to himself. Insight and judgment, recent and remote memory, attention and concentration, fund of knowledge is poor consistent with his diagnosis. Laboratory Data: Reviewed. Impression: Major neurocognitive disorder Alzheimer vascular with delusion, depression, behavioral disturbance. Major depressive disorder with psychotic features. Anxiety disorder unspecified. Impulse control disorder unspecified. Plan: No change from initial note. Assessment: Vital Signs/I&O: Vital Signs Date Time Temp Pulse Resp B/P (MAP) Pulse Ox O2 Delivery O2 Flow Rate FiO2 09/25/20 16:02 97.9 91 16 108/72 (84) 97 09/24/20 15:55 Room Air I & O 09/24/20 09/24/20 09/25/20 14:59 22:59 06:59 Intake Total 360 ml Balance 360 ml Labs: Laboratory Tests Test 09/25/20 11:07 Urine Collection Type Clean catch Urine Color Yellow Urine Clarity Cloudy Urine pH 6.5 Urine Specific [place] 1.020 Urine Protein Trace (NEG-TRACE) Urine Glucose (UA) Neg mg/dL (NEG) Urine Ketones (Stick) Neg mg/dL (NEG) Urine Blood Mod (NEG) Urine Nitrite Pos (NEG) Urine Bilirubin Neg (NEG) Urine Urobilinogen Dipstick 1.0 mg/dL (0.2 mg/dL) Urine Leukocyte Esterase Mod (NEG) Urine RBC 20-40 /HPF (0-2) Urine WBC >40 /HPF (0-4) Urine Bacteria Many /HPF (0-FEW) Current Medications: Meds: Laboratory Tests Test 09/25/20 11:07 Urine Collection Type Clean catch Urine Color Yellow Urine Clarity Cloudy Urine pH 6.5 Urine Specific [place] 1.020 Urine Protein Trace Urine Glucose (UA) Neg mg/dL Urine Ketones (Stick) Neg mg/dL Urine Blood Mod Urine Nitrite Pos Urine Bilirubin Neg Urine Urobilinogen Dipstick 1.0 mg/dL Urine Leukocyte Esterase Mod Urine RBC 20-40 /HPF Urine WBC >40 /HPF Urine Bacteria Many /HPF Current Medications Medications (Trade) Dose Ordered Sig/Sonia Route PRN Reason Start Time Stop Time Status Last Admin Dose Admin Fenofibrate (Tricor) 48 mg DAILY PO 09/18/20 09:00 09/25/20 08:25 Fluticasone Propionate (Flonase) 2 spray DAILY NS 09/18/20 09:00 09/25/20 08:27 Metoprolol Succinate (Toprol Xl) 50 mg DAILY PO 09/18/20 09:00 09/25/20 08:26 Mirtazapine (Remeron) 15 mg QHS PO 09/17/20 21:00 09/25/20 19:40 Olanzapine (ZyPREXA ZYDIS) 5 mg DAILY PO 09/18/20 09:00 09/17/20 15:00 DC Pantoprazole Sodium (Protonix) 40 mg DAILY PO 09/18/20 09:00 09/25/20 08:25 Multivitamins/ Calcium (Thera-M Plus) 1 tab DAILY PO 09/18/20 09:00 09/25/20 08:25 Acetaminophen (Tylenol) 650 mg PRN Q6HRS PRN PO MILD PAIN / TEMP > 100.3'F 09/17/20 12:30 09/24/20 19:56 Multi-Ingredient Ointment (Analgesic [place]) 1 olu PRN QID PRN TP MUSCLE PAIN 09/17/20 12:30 09/23/20 21:23 Al Hydroxide/Mg Hydroxide (Mylanta Plus Xs) 15 ml PRN AFTMEALHC PRN PO DYSPEPSIA 09/17/20 12:30 Magnesium Hydroxide (Milk Of Magnesia) 2,400 mg PRN QHS PRN PO CONSTIPATION 09/17/20 12:30 Quetiapine Fumarate (SEROquel) 25 mg PRN Q2HRS PRN PO ANXIETY / AGITATION 09/17/20 14:45 09/25/20 16:19 Olanzapine (ZyPREXA) 2.5 mg TID PO 09/17/20 21:00 09/18/20 20:32 DC 09/18/20 14:07 Trazodone HCl (Desyrel) 50 mg PRN QHS PRN PO INSOMNIA, MAY REPEAT X1 09/17/20 14:45 09/24/20 19:54 Lidocaine HCl (Uro-Jet) 1 olu PRN DAILY PRN MM SEE ADMIN INSTRUCTIONS 09/18/20 17:15 Divalproex Sodium (Depakote Sprinkles) 250 mg BIDWMEALS PO 09/24/20 19:00 09/24/20 19:05 DC Divalproex Sodium (Depakote Sprinkles) 250 mg BIDWMEALS PO 09/25/20 09:00 09/25/20 16:19 Current Medications Medications (Trade) Dose Ordered Sig/Sonia Route PRN Reason Start Time Stop Time Status Last Admin Dose Admin Divalproex Sodium (Depakote Sprinkles) 250 mg BIDWMEALS PO 09/25/20 09:00 09/25/20 16:19 I have reviewed the current psychotropics carefully including drug interactions. Risk benefit ratio favors no change other than as noted in my dictated progress note. Diagnosis: Problems: (1) Impulse control disorder, unspecified (2) Vascular dementia with delusions (3) Anxiety disorder, unspecified (4) Vascular dementia with depression (5) Major neurocognitive disorder (6) Dementia in Alzheimer's disease with depression (7) Dementia in Alzheimer's disease with delusions (8) Dementia of the Alzheimer's type with early onset with behavioral disturbance (9) Major depressive disorder with psychotic features PRABHAKAR MOLINA MD Sep 25, 2020 21:01
--- NOTE | 2020-09-25 21:25 | PDOC ---
Exam Note: Manish Note: This note is a late entry for 09/24/2020 covers elements not covered in my initial note. Subjective: The patient was seen face to face in the evening of 09/24/2020 with lCaire ULLOA, discussed and reviewed the chart. He slept 6-1/4 hours previous night. The patient again did not get up for breakfast. He was agitated, combative at lunchtime, had to be in the West hallway. He was making very derogatory comments to female nursing staff about their physical attributes. No blood in the urine today. We are trying to get another urine sample as a condom catheter for the UA. Review of Systems: Ambulation impaired with walker. No CV, , pulmonary, eye, ENT system symptoms on review. Mental Status Exam: The patient is oriented to himself. Insight and judgment, recent and remote memory, attention and concentration, fund of knowledge is poor consistent with his diagnosis. Laboratory Data: Reviewed. Impression: Major neurocognitive disorder Alzheimer vascular with delusion, depression, behavioral disturbance. Major depressive disorder with psychotic features. Anxiety disorder unspecified. Impulse control disorder unspecified. Plan: No change from initial note. Start Depakote Sprinkle 125 mg 9.a.m. and 5 p.m. Check CBC, CMP, valproic acid level in 3 days. Continue rest unchanged. Assessment: Vital Signs/I&O: Vital Signs Date Time Temp Pulse Resp B/P (MAP) Pulse Ox O2 Delivery O2 Flow Rate FiO2 09/25/20 16:02 97.9 91 16 108/72 (84) 97 09/24/20 15:55 Room Air I & O 09/24/20 09/24/20 09/25/20 15:00 23:00 07:00 Intake Total 360 ml Balance 360 ml Labs: Laboratory Tests Test 09/25/20 11:07 Urine Collection Type Clean catch Urine Color Yellow Urine Clarity Cloudy Urine pH 6.5 Urine Specific [place] 1.020 Urine Protein Trace (NEG-TRACE) Urine Glucose (UA) Neg mg/dL (NEG) Urine Ketones (Stick) Neg mg/dL (NEG) Urine Blood Mod (NEG) Urine Nitrite Pos (NEG) Urine Bilirubin Neg (NEG) Urine Urobilinogen Dipstick 1.0 mg/dL (0.2 mg/dL) Urine Leukocyte Esterase Mod (NEG) Urine RBC 20-40 /HPF (0-2) Urine WBC >40 /HPF (0-4) Urine Bacteria Many /HPF (0-FEW) Current Medications: Meds: Laboratory Tests Test 09/25/20 11:07 Urine Collection Type Clean catch Urine Color Yellow Urine Clarity Cloudy Urine pH 6.5 Urine Specific [place] 1.020 Urine Protein Trace Urine Glucose (UA) Neg mg/dL Urine Ketones (Stick) Neg mg/dL Urine Blood Mod Urine Nitrite Pos Urine Bilirubin Neg Urine Urobilinogen Dipstick 1.0 mg/dL Urine Leukocyte Esterase Mod Urine RBC 20-40 /HPF Urine WBC >40 /HPF Urine Bacteria Many /HPF Current Medications Medications (Trade) Dose Ordered Sig/Sonia Route PRN Reason Start Time Stop Time Status Last Admin Dose Admin Fenofibrate (Tricor) 48 mg DAILY PO 09/18/20 09:00 09/25/20 08:25 Fluticasone Propionate (Flonase) 2 spray DAILY NS 09/18/20 09:00 09/25/20 08:27 Metoprolol Succinate (Toprol Xl) 50 mg DAILY PO 09/18/20 09:00 09/25/20 08:26 Mirtazapine (Remeron) 15 mg QHS PO 09/17/20 21:00 09/25/20 19:40 Olanzapine (ZyPREXA ZYDIS) 5 mg DAILY PO 09/18/20 09:00 09/17/20 15:00 DC Pantoprazole Sodium (Protonix) 40 mg DAILY PO 09/18/20 09:00 09/25/20 08:25 Multivitamins/ Calcium (Thera-M Plus) 1 tab DAILY PO 09/18/20 09:00 09/25/20 08:25 Acetaminophen (Tylenol) 650 mg PRN Q6HRS PRN PO MILD PAIN / TEMP > 100.3'F 09/17/20 12:30 09/24/20 19:56 Multi-Ingredient Ointment (Analgesic [place]) 1 olu PRN QID PRN TP MUSCLE PAIN 09/17/20 12:30 09/23/20 21:23 Al Hydroxide/Mg Hydroxide (Mylanta Plus Xs) 15 ml PRN AFTMEALHC PRN PO DYSPEPSIA 09/17/20 12:30 Magnesium Hydroxide (Milk Of Magnesia) 2,400 mg PRN QHS PRN PO CONSTIPATION 09/17/20 12:30 Quetiapine Fumarate (SEROquel) 25 mg PRN Q2HRS PRN PO ANXIETY / AGITATION 09/17/20 14:45 09/25/20 16:19 Olanzapine (ZyPREXA) 2.5 mg TID PO 09/17/20 21:00 09/18/20 20:32 DC 09/18/20 14:07 Trazodone HCl (Desyrel) 50 mg PRN QHS PRN PO INSOMNIA, MAY REPEAT X1 09/17/20 14:45 09/24/20 19:54 Lidocaine HCl (Uro-Jet) 1 olu PRN DAILY PRN MM SEE ADMIN INSTRUCTIONS 09/18/20 17:15 Divalproex Sodium (Depakote Sprinkles) 250 mg BIDWMEALS PO 09/24/20 19:00 09/24/20 19:05 DC Divalproex Sodium (Depakote Sprinkles) 250 mg BIDWMEALS PO 09/25/20 09:00 09/25/20 16:19 Current Medications Medications (Trade) Dose Ordered Sig/Sonia Route PRN Reason Start Time Stop Time Status Last Admin Dose Admin Divalproex Sodium (Depakote Sprinkles) 250 mg BIDWMEALS PO 09/25/20 09:00 09/25/20 16:19 I have reviewed the current psychotropics carefully including drug interactions. Risk benefit ratio favors no change other than as noted in my dictated progress note. Diagnosis: Problems: (1) Impulse control disorder, unspecified (2) Vascular dementia with delusions (3) Anxiety disorder, unspecified (4) Vascular dementia with depression (5) Major neurocognitive disorder (6) Dementia in Alzheimer's disease with depression (7) Dementia in Alzheimer's disease with delusions (8) Dementia of the Alzheimer's type with early onset with behavioral distur bance (9) Major depressive disorder with psychotic features PRABHAKAR MOLINA MD Sep 25, 2020 21:25
--- NOTE | 2020-09-25 21:53 | PDOC ---
Exam Note: Manish Note: Please also refer to the separate dictated note~for this date of service dictated separately.~Patient seen individually. Discussed the patient with Nursing staff reviewed the chart.~Reviewed interim history and current functioning. Reviewed vital signs,~Labs/ Radiology~and current medications noted below. Continue current treatment with the changes noted in the dictated addendum note Assessment: Vital Signs/I&O: Vital Signs Date Time Temp Pulse Resp B/P (MAP) Pulse Ox O2 Delivery O2 Flow Rate FiO2 09/25/20 16:02 97.9 91 16 108/72 (84) 97 09/24/20 15:55 Room Air I & O 09/24/20 09/24/20 09/25/20 15:00 23:00 07:00 Intake Total 360 ml Balance 360 ml Labs: Laboratory Tests Test 09/25/20 11:07 Urine Collection Type Clean catch Urine Color Yellow Urine Clarity Cloudy Urine pH 6.5 Urine Specific [place] 1.020 Urine Protein Trace (NEG-TRACE) Urine Glucose (UA) Neg mg/dL (NEG) Urine Ketones (Stick) Neg mg/dL (NEG) Urine Blood Mod (NEG) Urine Nitrite Pos (NEG) Urine Bilirubin Neg (NEG) Urine Urobilinogen Dipstick 1.0 mg/dL (0.2 mg/dL) Urine Leukocyte Esterase Mod (NEG) Urine RBC 20-40 /HPF (0-2) Urine WBC >40 /HPF (0-4) Urine Bacteria Many /HPF (0-FEW) Current Medications: Meds: Current Medications Medications (Trade) Dose Ordered Sig/Sonia Route PRN Reason Start Time Stop Time Status Last Admin Dose Admin Divalproex Sodium (Depakote Sprinkles) 250 mg BIDWMEALS PO 09/25/20 09:00 09/25/20 16:19 I have reviewed the current psychotropics carefully including drug interactions. Risk benefit ratio favors no change other than as noted in my dictated progress note. Diagnosis: Problems: (1) Impulse control disorder, unspecified (2) Vascular dementia with delusions (3) Anxiety disorder, unspecified (4) Vascular dementia with depression (5) Major neurocognitive disorder (6) Dementia in Alzheimer's disease with depression (7) Dementia in Alzheimer's disease with delusions (8) Dementia of the Alzheimer's type with early onset with behavioral disturbance (9) Major depressive disorder with psychotic features PRABHAKAR MOLINA MD Sep 25, 2020 21:53
[2020-09-26 06:00] VITALS: BP 115/73
[2020-09-26] MEDS: METOPROLOL SUCC 24HR ER 50 MG TAB.ER.24H. PO SCH (08:57)
[2020-09-26] MEDS: DIVALPROEX 125 MG CAP.SPRINK PO SCH ×2 (08:57→17:21)
[2020-09-26] MEDS: MULTIVITAMIN with MINERAL TABLET. PO SCH (08:57)
[2020-09-26] MEDS: PANTOPRAZOLE 40 MG TABLET. PO SCH (08:57)
[2020-09-26] MEDS: FLUTICASONE 50MCG/NASAL SPRAY 16GM BOTTLE. NS SCH (08:58)
[2020-09-26] MEDS: FENOFIBRATE NANOCRYSTALLIZED 48 MG TABLET PO SCH (08:58)
--- NOTE | 2020-09-26 15:29 | TX PLAN ---
Interdisciplinary Tx Plan Admission Information Sep 17, 2020 at 10:23 Legal Status (on Admission): Voluntary DPOA/Guardian Name: Halina Gomez Contact Other Contact Name: Halina Gomez Other Contact Verified Code Status: DNR Allergies: Coded Allergies: No Known Drug Allergies (Unverified , 08/01/20) Diagnoses Primary Diagnosis: MDD with psychotic features, Major Neurocognitive D/O, Alzheimers, vascular with delusions, depression Reasons for Admission: Aggressive, Agitated, Sig. Change Sleep, Confusion/Disoriented Problem in Patient's Words: This whole catheter issue has caused him to become unsteady again and needs to be stable. Additional Admission Comments: According to the intake, pt is agitated, verbally aggressive, disoriented, insomnia, hostile and sundowning Problems Active Problems: verbally aggressive agitated physically aggressive labile Inactive Problems: Medication compliant Pt Strengths/Limitations Ability for Yell: Poor Cognitive Functioning/Ability: Fair Communication Skills/Ability: Fair Financial Resources: Good Insight/Judgement: Poor Intellectual Ability: Fair Physical Health: Poor Social Skills: Fair Stability in Family: Good Stability in School/Work: Poor Verbal Skills: Fair Discharge Criteria Discharge Criteria: No need for close observ., Adequate arrangements @DC, Improved behavior, Improved mood/thought Preliminary Discharge Plan Preliminary DC Plan: Placement Needed Special Precautions Fall Risk: Moderate Initial D/C Plan Pt will need placement upon dishcarge; request for SNF/rehab facility Identified Discharge Needs: Referrals for a higher level of care Currently Utilized Resources Currently Utilized Resources/P: Primary Care Physician Referrals Community Resources: Referrals to higher level of care. Identified Problems/Hx/Goals Objectives/Short-Term Goals Short Term Goals: Dec. Aggression, Dec. Outbursts, Medication Stabilization, Monitor Med Effects, Promote Coping Skill Short Term Goals in Patient's: N/A Interventions/Frequency Staff Interventions/Frequency&: Psychiatrist to assess pt at least 3x per week for medication management and effects. Social Work to assess pt at least 2x per week for barriers to care and finalize discharge plans with all involved parties. Nursing to assess behaviors, medication effects and completion of 15 minute checks daily. Encourage group participation in activities (if applicable) or 1:1 engagement based off activity dept goals. 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 Education: Pt graduated from High school (12th grade). Community Follow-up Primary Care Physician Possible referrals for psychiatrist while at placement Community Provider/Family Inpu: Pt is concerned about pt medications creating urinary trouble and wishes for these effects to be monitored closely. Pt needs to be able to walk before he can return home which is why pt may need to be at SNF/rehab after discharge. Treatment Plan Explained Patient/Traverse Rod Assembler had this treatment plan explained to him/her as indicated by the signature below and has been given the opportunity to ask questions and make suggestions: Date: Patient/Traverse Rod Assembler Signature: Status Update Update Pt Halina participated in tx team via phone; pt dtr was also attempted but was not able to be reached. Pt is eating 100% of meals and sleeping on average 6 hours per night. Pt does get agitated and oftentimes, combative (e.g. hitting, kicking, verbally aggressive) with staff during times of cares. Pt culture has returned and may need an ABX, which will be discussed with the hospitalist. Pt takes his medications whole with no issues and has been attending all groups with active participation. Pt started Depakote on 09/25 and will have labs (CBC, CMP and VPA) drawn on 09/28. Pt will have to discharge to placement once stable as pt needs him to physically be stronger and care for himself. SW hopes to send out referrals later this week to aid in finding placement; SW to keep all parties updated on discharge. BRITTA PARKER Sep 26, 2020 15:29
[2020-09-26 15:55] VITALS: BP 108/68
[2020-09-26] MEDS: MIRTAZAPINE 15 MG TABLET PO SCH (20:37)
[2020-09-26] MEDS: CEPHALEXIN 250 MG CAPSULE PO SCH (20:39)
--- NOTE | 2020-09-26 20:58 | PDOC ---
Exam Note: Manish Note: Please also refer to the separate dictated note~for this date of service dictated separately.~Patient seen individually. Discussed the patient with Nursing staff reviewed the chart.~Reviewed interim history and current functioning. Reviewed vital signs,~Labs/ Radiology~and current medications noted below. Continue current treatment with the changes noted in the dictated addendum note Assessment: Vital Signs/I&O: Vital Signs Date Time Temp Pulse Resp B/P (MAP) Pulse Ox O2 Delivery O2 Flow Rate FiO2 09/26/20 15:55 98.4 84 20 108/68 (81) 96 09/24/20 15:55 Room Air I & O 09/25/20 09/25/20 09/26/20 15:00 23:00 07:00 Intake Total 960 ml 600 ml Balance 960 ml 600 ml Current Medications: Meds: Current Medications Medications (Trade) Dose Ordered Sig/Sonia Route PRN Reason Start Time Stop Time Status Last Admin Dose Admin Cephalexin HCl (Keflex) 500 mg TID PO 09/26/20 21:00 09/26/20 20:39 I have reviewed the current psychotropics carefully including drug interactions. Risk benefit ratio favors no change other than as noted in my dictated progress note. Diagnosis: Problems: (1) Impulse control disorder, unspecified (2) Vascular dementia with delusions (3) Anxiety disorder, unspecified (4) Vascular dementia with depression (5) Major neurocognitive disorder (6) Dementia in Alzheimer's disease with depression (7) Dementia in Alzheimer's disease with delusions (8) Dementia of the Alzheimer's type with early onset with behavioral disturbance (9) Major depressive disorder with psychotic features PRABHAKAR MOLINA MD Sep 26, 2020 20:58
[2020-09-26] MEDS: ACETAMINOPHEN 325 MG TABLET PO PRN (22:25)
[2020-09-26] MEDS: traZODone 50 MG TABLET. PO PRN (22:25)
[2020-09-27 06:03] VITALS: BP 129/77
[2020-09-27] MEDS: PANTOPRAZOLE 40 MG TABLET. PO SCH (08:25)
[2020-09-27] MEDS: METOPROLOL SUCC 24HR ER 50 MG TAB.ER.24H. PO SCH (08:25)
[2020-09-27] MEDS: DIVALPROEX 125 MG CAP.SPRINK PO SCH ×2 (08:25→16:50)
[2020-09-27] MEDS: MULTIVITAMIN with MINERAL TABLET. PO SCH (08:25)
[2020-09-27] MEDS: CEPHALEXIN 250 MG CAPSULE PO SCH ×3 (08:26→19:46)
[2020-09-27] MEDS: FENOFIBRATE NANOCRYSTALLIZED 48 MG TABLET PO SCH (08:26)
[2020-09-27] MEDS: FLUTICASONE 50MCG/NASAL SPRAY 16GM BOTTLE. NS SCH (08:26)
--- NOTE | 2020-09-27 09:49 | PDOC ---
Exam Note: Manish Note: This note is a late entry for 09/25/2020 covers elements not covered in my initial note. Subjective: The patient was seen face to face in the evening of 09/25/2020 with Diane ULLOA, discussed and reviewed the chart. He slept 6-1/2 hours previous night. The patient did well in the morning. He was somewhat incontinent and then was agitated during the shower, grabbing at nursing staff. He took 3 staff members to assist. At 1400 hours, he attempted to exit the unit and was yelling. He was given p.r.n. Seroquel, then did much better after that. UA has reflex to culture. We will await the report. Review of Systems: Ambulation impaired with walker. No CV, , pulmonary, eye, ENT system symptoms on review. Reliability poor. Gait unsteady. Mental Status Exam: The patient is oriented to himself. Insight and judgment, recent and remote memory, attention and concentration, fund of knowledge is poor consistent with his diagnosis. Laboratory Data: Reviewed. Impression: Major neurocognitive disorder Alzheimer vascular with delusion, depression, behavioral disturbance. Major depressive disorder with psychotic features. Anxiety disorder unspecified. Impulse control disorder unspecified. Plan: No change from initial note. We will plan psychotropics further depending on his response to the prior adjustments. Assessment: Vital Signs/I&O: Vital Signs Date Time Temp Pulse Resp B/P (MAP) Pulse Ox O2 Delivery O2 Flow Rate FiO2 09/27/20 08:25 90 129/77 09/27/20 06:03 97.5 18 96 09/24/20 15:55 Room Air I & O 09/26/20 09/26/20 09/27/20 15:00 23:00 07:00 Intake Total 720 ml 360 ml Balance 720 ml 360 ml Current Medications: Meds: Current Medications Medications (Trade) Dose Ordered Sig/Sonia Route PRN Reason Start Time Stop Time Status Last Admin Dose Admin Cephalexin HCl (Keflex) 500 mg TID PO 09/26/20 21:00 09/27/20 08:26 Current Medications Medications (Trade) Dose Ordered Sig/Sonia Route PRN Reason Start Time Stop Time Status Last Admin Dose Admin Fenofibrate (Tricor) 48 mg DAILY PO 09/18/20 09:00 09/27/20 08:26 Fluticasone Propionate (Flonase) 2 spray DAILY NS 09/18/20 09:00 09/27/20 08:26 Metoprolol Succinate (Toprol Xl) 50 mg DAILY PO 09/18/20 09:00 09/27/20 08:25 Mirtazapine (Remeron) 15 mg QHS PO 09/17/20 21:00 09/26/20 20:37 Olanzapine (ZyPREXA ZYDIS) 5 mg DAILY PO 09/18/20 09:00 09/17/20 15:00 DC Pantoprazole Sodium (Protonix) 40 mg DAILY PO 09/18/20 09:00 09/27/20 08:25 Multivitamins/ Calcium (Thera-M Plus) 1 tab DAILY PO 09/18/20 09:00 09/27/20 08:25 Acetaminophen (Tylenol) 650 mg PRN Q6HRS PRN PO MILD PAIN / TEMP > 100.3'F 09/17/20 12:30 09/26/20 22:25 Multi-Ingredient Ointment (Analgesic [place]) 1 olu PRN QID PRN TP MUSCLE PAIN 09/17/20 12:30 09/23/20 21:23 Al Hydroxide/Mg Hydroxide (Mylanta Plus Xs) 15 ml PRN AFTMEALHC PRN PO DYSPEPSIA 09/17/20 12:30 Magnesium Hydroxide (Milk Of Magnesia) 2,400 mg PRN QHS PRN PO CONSTIPATION 09/17/20 12:30 Quetiapine Fumarate (SEROquel) 25 mg PRN Q2HRS PRN PO ANXIETY / AGITATION 09/17/20 14:45 09/25/20 16:19 Olanzapine (ZyPREXA) 2.5 mg TID PO 09/17/20 21:00 09/18/20 20:32 DC 09/18/20 14:07 Trazodone HCl (Desyrel) 50 mg PRN QHS PRN PO INSOMNIA, MAY REPEAT X1 09/17/20 14:45 09/26/20 22:25 Lidocaine HCl (Uro-Jet) 1 olu PRN DAILY PRN MM SEE ADMIN INSTRUCTIONS 09/18/20 17:15 Divalproex Sodium (Depakote Sprinkles) 250 mg BIDWMEALS PO 09/24/20 19:00 09/24/20 19:05 DC Divalproex Sodium (Depakote Sprinkles) 250 mg BIDWMEALS PO 09/25/20 09:00 09/27/20 08:25 Cephalexin HCl (Keflex) 500 mg TID PO 09/26/20 21:00 09/27/20 08:26 I have reviewed the current psychotropics carefully including drug interactions. Risk benefit ratio favors no change other than as noted in my dictated progress note. Diagnosis: Problems: (1) Impulse control disorder, unspecified (2) Vascular dementia with delusions (3) Anxiety disorder, unspecified (4) Vascular dementia with depression (5) Major neurocognitive disorder (6) Dementia in Alzheimer's disease with depression (7) Dementia in Alzheimer's disease with delusions (8) Dementia of the Alzheimer's type with early onset with behavioral disturbance (9) Major depressive disorder with psychotic features PRABHAKAR MOLINA MD Sep 27, 2020 09:48
--- NOTE | 2020-09-27 10:19 | PDOC ---
Exam Note: Manish Note: This note is a late entry for 09/26/2020 covers elements not covered in my initial note. Subjective: The patient was seen face to face in the morning of 09/26/2020 for a treatment team meeting with Verna Prakash and Analisa (secondary social studies teacher), Lashay Hyatt and Codi, activity therapy and Diane ULLOA, discussed and reviewed the chart. He slept 7 hours previous night. The patients Halina attended the treatment team meeting as well. Appetite is 100%. Sleeping average 6 hours. He was labile in his mood yesterday. He was agitated with cares and showers. UA is positive of Staphylococcus but we will defer to Dr. Traylor. Review of Systems: Ambulation impaired with walker. No CV, , pulmonary, eye, ENT system symptoms on review. Gait unsteady. Mental Status Exam: The patient is oriented to himself. Insight and judgment, recent and remote memory, attention and concentration, fund of knowledge is poor consistent with his diagnosis. Laboratory Data: Reviewed. Impression: Major neurocognitive disorder Alzheimer vascular with delusion, depression, behavioral disturbance. Major depressive disorder with psychotic features. Anxiety disorder unspecified. Impulse control disorder unspecified. Plan: No change from initial note. Overall the patient is showing improvement. Social service staff is actively finding placement in coordination with his . Assessment: Vital Signs/I&O: Vital Signs Date Time Temp Pulse Resp B/P (MAP) Pulse Ox O2 Delivery O2 Flow Rate FiO2 09/27/20 08:25 90 129/77 09/27/20 06:03 97.5 18 96 09/24/20 15:55 Room Air I & O 09/26/20 09/26/20 09/27/20 15:00 23:00 07:00 Intake Total 720 ml 360 ml Balance 720 ml 360 ml Current Medications: Meds: Current Medications Medications (Trade) Dose Ordered Sig/Sonia Route PRN Reason Start Time Stop Time Status Last Admin Dose Admin Fenofibrate (Tricor) 48 mg DAILY PO 09/18/20 09:00 09/27/20 08:26 Fluticasone Propionate (Flonase) 2 spray DAILY NS 09/18/20 09:00 09/27/20 08:26 Metoprolol Succinate (Toprol Xl) 50 mg DAILY PO 09/18/20 09:00 09/27/20 08:25 Mirtazapine (Remeron) 15 mg QHS PO 09/17/20 21:00 09/26/20 20:37 Olanzapine (ZyPREXA ZYDIS) 5 mg DAILY PO 09/18/20 09:00 09/17/20 15:00 DC Pantoprazole Sodium (Protonix) 40 mg DAILY PO 09/18/20 09:00 09/27/20 08:25 Multivitamins/ Calcium (Thera-M Plus) 1 tab DAILY PO 09/18/20 09:00 09/27/20 08:25 Acetaminophen (Tylenol) 650 mg PRN Q6HRS PRN PO MILD PAIN / TEMP > 100.3'F 09/17/20 12:30 09/26/20 22:25 Multi-Ingredient Ointment (Analgesic [place]) 1 olu PRN QID PRN TP MUSCLE PAIN 09/17/20 12:30 09/23/20 21:23 Al Hydroxide/Mg Hydroxide (Mylanta Plus Xs) 15 ml PRN AFTMEALHC PRN PO DYSPEPSIA 09/17/20 12:30 Magnesium Hydroxide (Milk Of Magnesia) 2,400 mg PRN QHS PRN PO CONSTIPATION 09/17/20 12:30 Quetiapine Fumarate (SEROquel) 25 mg PRN Q2HRS PRN PO ANXIETY / AGITATION 09/17/20 14:45 09/25/20 16:19 Olanzapine (ZyPREXA) 2.5 mg TID PO 09/17/20 21:00 09/18/20 20:32 DC 09/18/20 14:07 Trazodone HCl (Desyrel) 50 mg PRN QHS PRN PO INSOMNIA, MAY REPEAT X1 09/17/20 14:45 09/26/20 22:25 Lidocaine HCl (Uro-Jet) 1 olu PRN DAILY PRN MM SEE ADMIN INSTRUCTIONS 09/18/20 17:15 Divalproex Sodium (Depakote Sprinkles) 250 mg BIDWMEALS PO 09/24/20 19:00 09/24/20 19:05 DC Divalproex Sodium (Depakote Sprinkles) 250 mg BIDWMEALS PO 09/25/20 09:00 09/27/20 08:25 Cephalexin HCl (Keflex) 500 mg TID PO 09/26/20 21:00 09/27/20 08:26 Current Medications Medications (Trade) Dose Ordered Sig/Sonia Route PRN Reason Start Time Stop Time Status Last Admin Dose Admin Cephalexin HCl (Keflex) 500 mg TID PO 09/26/20 21:00 09/27/20 08:26 I have reviewed the current psychotropics carefully including drug interactions. Risk benefit ratio favors no change other than as noted in my dictated progress note. Diagnosis: Problems: (1) Impulse control disorder, unspecified (2) Vascular dementia with delusions (3) Anxiety disorder, unspecified (4) Vascular dementia with depression (5) Major neurocognitive disorder (6) Dementia in Alzheimer's disease with depression (7) Dementia in Alzheimer's disease with delusions (8) Dementia of the Alzheimer's type with early onset with behavioral disturbance (9) Major depressive disorder with psychotic features PRABHAKAR MOLINA MD Sep 27, 2020 10:19
[2020-09-27 15:25] VITALS: BP 113/71
[2020-09-27] MEDS: MIRTAZAPINE 15 MG TABLET PO SCH (19:45)
--- NOTE | 2020-09-27 21:02 | PDOC ---
Exam Note: Manish Note: Please also refer to the separate dictated note~for this date of service dictated separately.~Patient seen individually. Discussed the patient with Nursing staff reviewed the chart.~Reviewed interim history and current functioning. Reviewed vital signs,~Labs/ Radiology~and current medications noted below. Continue current treatment with the changes noted in the dictated addendum note Assessment: Vital Signs/I&O: Vital Signs Date Time Temp Pulse Resp B/P (MAP) Pulse Ox O2 Delivery O2 Flow Rate FiO2 09/27/20 15:25 98.1 90 17 113/71 (85) 97 09/24/20 15:55 Room Air I & O 09/26/20 09/26/20 09/27/20 15:00 23:00 07:00 Intake Total 720 ml 360 ml Balance 720 ml 360 ml Current Medications: Meds: Current Medications Medications (Trade) Dose Ordered Sig/Sonia Route PRN Reason Start Time Stop Time Status Last Admin Dose Admin Fenofibrate (Tricor) 48 mg DAILY PO 09/18/20 09:00 09/27/20 08:26 Fluticasone Propionate (Flonase) 2 spray DAILY NS 09/18/20 09:00 09/27/20 08:26 Metoprolol Succinate (Toprol Xl) 50 mg DAILY PO 09/18/20 09:00 09/27/20 08:25 Mirtazapine (Remeron) 15 mg QHS PO 09/17/20 21:00 09/27/20 19:45 Olanzapine (ZyPREXA ZYDIS) 5 mg DAILY PO 09/18/20 09:00 09/17/20 15:00 DC Pantoprazole Sodium (Protonix) 40 mg DAILY PO 09/18/20 09:00 09/27/20 08:25 Multivitamins/ Calcium (Thera-M Plus) 1 tab DAILY PO 09/18/20 09:00 09/27/20 08:25 Acetaminophen (Tylenol) 650 mg PRN Q6HRS PRN PO MILD PAIN / TEMP > 100.3'F 09/17/20 12:30 09/26/20 22:25 Multi-Ingredient Ointment (Analgesic [place]) 1 olu PRN QID PRN TP MUSCLE PAIN 09/17/20 12:30 09/23/20 21:23 Al Hydroxide/Mg Hydroxide (Mylanta Plus Xs) 15 ml PRN AFTMEALHC PRN PO DYSPEPSIA 09/17/20 12:30 Magnesium Hydroxide (Milk Of Magnesia) 2,400 mg PRN QHS PRN PO CONSTIPATION 09/17/20 12:30 Quetiapine Fumarate (SEROquel) 25 mg PRN Q2HRS PRN PO ANXIETY / AGITATION 09/17/20 14:45 09/25/20 16:19 Olanzapine (ZyPREXA) 2.5 mg TID PO 09/17/20 21:00 09/18/20 20:32 DC 09/18/20 14:07 Trazodone HCl (Desyrel) 50 mg PRN QHS PRN PO INSOMNIA, MAY REPEAT X1 09/17/20 14:45 09/26/20 22:25 Lidocaine HCl (Uro-Jet) 1 olu PRN DAILY PRN MM SEE ADMIN INSTRUCTIONS 09/18/20 17:15 Divalproex Sodium (Depakote Sprinkles) 250 mg BIDWMEALS PO 09/24/20 19:00 09/24/20 19:05 DC Divalproex Sodium (Depakote Sprinkles) 250 mg BIDWMEALS PO 09/25/20 09:00 09/27/20 16:50 Cephalexin HCl (Keflex) 500 mg TID PO 09/26/20 21:00 10/03/20 21:00 09/27/20 19:46 I have reviewed the current psychotropics carefully including drug interactions. Risk benefit ratio favors no change other than as noted in my dictated progress note. Diagnosis: Problems: (1) Impulse control disorder, unspecified (2) Vascular dementia with delusions (3) Anxiety disorder, unspecified (4) Vascular dementia with depression (5) Major neurocognitive disorder (6) Dementia in Alzheimer's disease with depression (7) Dementia in Alzheimer's disease with delusions (8) Dementia of the Alzheimer's type with early onset with behavioral disturbance (9) Major depressive disorder with psychotic features PRABHAKAR MOLINA MD Sep 27, 2020 21:02
[2020-09-28 05:49] VITALS: BP 114/76
[2020-09-28 06:54] LABS: ALBUMIN 3.2 g/dL (3.4-5.0); ALBUMIN/GLOBULIN RATIO 0.8 (1.0-1.7); CALCIUM 8.9 mg/dL (8.5-10.1); GFR 72.6; POTASSIUM 3.8 mmol/L (3.5-5.1); TOTAL BILIRUBIN 0.5 mg/dL (0.2-1.0); TOTAL PROTEIN 7.1 g/dL (6.4-8.2)
[2020-09-28 07:03] LABS: VAL ACID 25 mcg/mL (50-100)
--- NOTE | 2020-09-28 07:33 | PDOC ---
Exam Note: Manish Note: This note is a late entry for 09/27/2020 covers elements not covered in my initial note. Subjective: The patient was seen face to face in the evening of 09/27/2020 with Diane ULLOA, discussed and reviewed the chart. He slept 5 hours previous night. The patient remains confused. He does have UTI. We started on Keflex 500 mg t.i.d. He did well previous night and during the day today. Occasionally he gets frustrated, especially with cares. This was evident when he was in a shower this morning, got agitated, but then did better after that. Review of Systems: Ambulation impaired with walker. No CV, , pulmonary, eye, ENT system symptoms on review. Reliability poor. Mental Status Exam: The patient is oriented to himself. Insight and judgment, recent and remote memory, attention and concentration, fund of knowledge is poor consistent with his diagnosis. Laboratory Data: Reviewed. Impression: Major neurocognitive disorder Alzheimer vascular with delusion, depression, behavioral disturbance. Major depressive disorder with psychotic features. Anxiety disorder unspecified. Impulse control disorder unspecified. Plan: No change from initial note. Treat the UTI. Adjust psychotropics further depending on his clinical progress. Assessment: Vital Signs/I&O: Vital Signs Date Time Temp Pulse Resp B/P (MAP) Pulse Ox O2 Delivery O2 Flow Rate FiO2 09/28/20 05:49 97.7 82 18 114/76 (89) 96 09/24/20 15:55 Room Air I & O 09/27/20 09/27/20 09/28/20 15:00 23:00 07:00 Intake Total 840 ml 780 ml Balance 840 ml 780 ml Labs: Laboratory Tests Test 09/28/20 06:15 Sodium Level 146 mmol/L (136-145) H Potassium Level 3.8 mmol/L (3.5-5.1) Chloride Level 107 mmol/L (98-107) Carbon Dioxide Level 30 mmol/L (21-32) Anion Gap 9 (6-14) Blood Urea Nitrogen 22 mg/dL (8-26) Creatinine 1.0 mg/dL (0.7-1.3) Estimated GFR (Cockcroft-Gault) 72.6 BUN/Creatinine Ratio 22 (6-20) H Glucose Level 95 mg/dL (70-99) Calcium Level 8.9 mg/dL (8.5-10.1) Total Bilirubin 0.5 mg/dL (0.2-1.0) Aspartate Amino Transferase (AST) 30 U/L (15-37) Alanine Aminotransferase (ALT) 42 U/L (16-63) Alkaline Phosphatase 83 U/L (46-116) Total Protein 7.1 g/dL (6.4-8.2) Albumin 3.2 g/dL (3.4-5.0) L Albumin/Globulin Ratio 0.8 (1.0-1.7) L Valproic Acid Level 25 mcg/mL (50-100) L Valproic Acid Last Dose Date 09/27/20 Valproic Acid Last Dose Time 2100 Current Medications: Meds: Laboratory Tests Test 09/28/20 06:15 Sodium Level 146 mmol/L Potassium Level 3.8 mmol/L Chloride Level 107 mmol/L Carbon Dioxide Level 30 mmol/L Anion Gap 9 Blood Urea Nitrogen 22 mg/dL Creatinine 1.0 mg/dL Estimated GFR (Cockcroft-Gault) 72.6 BUN/Creatinine Ratio 22 Glucose Level 95 mg/dL Calcium Level 8.9 mg/dL Total Bilirubin 0.5 mg/dL Aspartate Amino Transf (AST/SGOT) 30 U/L Alanine Aminotransferase (ALT/SGPT) 42 U/L Alkaline Phosphatase 83 U/L Total Protein 7.1 g/dL Albumin 3.2 g/dL Albumin/Globulin Ratio 0.8 Valproic Acid (Depakene) Level 25 mcg/mL Valproic Acid Last Dose Date 09/27/20 Valproic Acid Last Dose Time 2100 Current Medications Medications (Trade) Dose Ordered Sig/Sonia Route PRN Reason Start Time Stop Time Status Last Admin Dose Admin Fenofibrate (Tricor) 48 mg DAILY PO 09/18/20 09:00 09/27/20 08:26 Fluticasone Propionate (Flonase) 2 spray DAILY NS 09/18/20 09:00 09/27/20 08:26 Metoprolol Succinate (Toprol Xl) 50 mg DAILY PO 09/18/20 09:00 09/27/20 08:25 Mirtazapine (Remeron) 15 mg QHS PO 09/17/20 21:00 09/27/20 19:45 Olanzapine (ZyPREXA ZYDIS) 5 mg DAILY PO 09/18/20 09:00 09/17/20 15:00 DC Pantoprazole Sodium (Protonix) 40 mg DAILY PO 09/18/20 09:00 09/27/20 08:25 Multivitamins/ Calcium (Thera-M Plus) 1 tab DAILY PO 09/18/20 09:00 09/27/20 08:25 Acetaminophen (Tylenol) 650 mg PRN Q6HRS PRN PO MILD PAIN / TEMP > 100.3'F 09/17/20 12:30 09/26/20 22:25 Multi-Ingredient Ointment (Analgesic [place]) 1 olu PRN QID PRN TP MUSCLE PAIN 09/17/20 12:30 09/23/20 21:23 Al Hydroxide/Mg Hydroxide (Mylanta Plus Xs) 15 ml PRN AFTMEALHC PRN PO DYSPEPSIA 09/17/20 12:30 Magnesium Hydroxide (Milk Of Magnesia) 2,400 mg PRN QHS PRN PO CONSTIPATION 09/17/20 12:30 Quetiapine Fumarate (SEROquel) 25 mg PRN Q2HRS PRN PO ANXIETY / AGITATION 09/17/20 14:45 09/25/20 16:19 Olanzapine (ZyPREXA) 2.5 mg TID PO 09/17/20 21:00 09/18/20 20:32 DC 09/18/20 14:07 Trazodone HCl (Desyrel) 50 mg PRN QHS PRN PO INSOMNIA, MAY REPEAT X1 09/17/20 14:45 09/26/20 22:25 Lidocaine HCl (Uro-Jet) 1 olu PRN DAILY PRN MM SEE ADMIN INSTRUCTIONS 09/18/20 17:15 Divalproex Sodium (Depakote Sprinkles) 250 mg BIDWMEALS PO 09/24/20 19:00 09/24/20 19:05 DC Divalproex Sodium (Depakote Sprinkles) 250 mg BIDWMEALS PO 09/25/20 09:00 09/27/20 16:50 Cephalexin HCl (Keflex) 500 mg TID PO 09/26/20 21:00 10/03/20 21:00 09/27/20 19:46 I have reviewed the current psychotropics carefully including drug interactions. Risk benefit ratio favors no change other than as noted in my dictated progress note. Diagnosis: Problems: (1) Impulse control disorder, unspecified (2) Vascular dementia with delusions (3) Anxiety disorder, unspecified (4) Vascular dementia with depression (5) Major neurocognitive disorder (6) Dementia in Alzheimer's disease with depression (7) Dementia in Alzheimer's disease with delusions (8) Dementia of the Alzheimer's type with early onset with behavioral disturbance (9) Major depressive disorder with psychotic features (10) Urinary (tract) obstruction PRABHAKAR MOLINA MD Sep 28, 2020 07:33
[2020-09-28 07:44] LABS: BASO % 1 % (0-3); EOS # 0.4 x10^3/uL (0.0-0.7); EOS % 6 % (0-3); HEMATOCRIT 43.6 % (39.0-53.0); HEMOGLOBIN 14.5 g/dL (13.0-17.5); LYMPH # 2.1 x10^3/uL (1.0-4.8); LYMPH % 28 % (24-48); MEAN CORPUSCULAR HEMOGLOBIN 30 pg (25-35); MEAN CORPUSCULAR HGB CONC 33 g/dL (31-37); MEAN CORPUSCULAR VOLUME 90 fL (79-100); MONO # 0.8 x10^3/uL (0.0-1.1); MONO % 11 % (0-9); NEUT # 3.9 x10^3uL (1.8-7.7); NEUT % 54 % (31-73); PLATELET COUNT 247 x10^3/uL (140-400); RED BLOOD COUNT 4.84 x10^6/uL (4.30-5.70); RED CELL DISTRIBUTION WIDTH 13.4 % (11.5-14.5); WHITE BLOOD COUNT 7.2 x10^3/uL (4.0-11.0)
[2020-09-28] MEDS: MULTIVITAMIN with MINERAL TABLET. PO SCH (08:07)
[2020-09-28] MEDS: CEPHALEXIN 250 MG CAPSULE PO SCH ×3 (08:07→20:02)
[2020-09-28] MEDS: PANTOPRAZOLE 40 MG TABLET. PO SCH (08:07)
[2020-09-28] MEDS: FENOFIBRATE NANOCRYSTALLIZED 48 MG TABLET PO SCH (08:07)
[2020-09-28] MEDS: DIVALPROEX 125 MG CAP.SPRINK PO SCH ×3 (08:07→20:03)
[2020-09-28] MEDS: METOPROLOL SUCC 24HR ER 50 MG TAB.ER.24H. PO SCH (08:08)
[2020-09-28] MEDS: FLUTICASONE 50MCG/NASAL SPRAY 16GM BOTTLE. NS SCH (08:11)
[2020-09-28] MEDS: ACETAMINOPHEN 325 MG TABLET PO PRN (15:17)
[2020-09-28 17:29] VITALS: BP 124/77
[2020-09-28] MEDS: QUEtiapine 25 MG TABLET. PO PRN (18:09)
[2020-09-28] MEDS: MIRTAZAPINE 15 MG TABLET PO SCH (20:02)
[2020-09-28] MEDS: traZODone 50 MG TABLET. PO PRN (20:33)
--- NOTE | 2020-09-28 21:01 | PDOC ---
Exam Note: Manish Note: Please also refer to the separate dictated note~for this date of service dictated separately.~Patient seen individually. Discussed the patient with Nursing staff reviewed the chart.~Reviewed interim history and current functioning. Reviewed vital signs,~Labs/ Radiology~and current medications noted below. Continue current treatment with the changes noted in the dictated addendum note Assessment: Vital Signs/I&O: Vital Signs Date Time Temp Pulse Resp B/P (MAP) Pulse Ox O2 Delivery O2 Flow Rate FiO2 09/28/20 17:29 98.9 83 16 124/77 (93) 95 09/24/20 15:55 Room Air I & O 09/27/20 09/27/20 09/28/20 15:00 23:00 07:00 Intake Total 840 ml 780 ml Balance 840 ml 780 ml Labs: Laboratory Tests Test 09/28/20 06:15 White Blood Count 7.2 x10^3/uL (4.0-11.0) Red Blood Count 4.84 x10^6/uL (4.30-5.70) Hemoglobin 14.5 g/dL (13.0-17.5) Hematocrit 43.6 % (39.0-53.0) Mean Corpuscular Volume 90 fL (79-100) Mean Corpuscular Hemoglobin 30 pg (25-35) Mean Corpuscular Hemoglobin Concent 33 g/dL (31-37) Red Cell Distribution Width 13.4 % (11.5-14.5) Platelet Count 247 x10^3/uL (140-400) Neutrophils (%) (Auto) 54 % (31-73) Lymphocytes (%) (Auto) 28 % (24-48) Monocytes (%) (Auto) 11 % (0-9) H Eosinophils (%) (Auto) 6 % (0-3) H Basophils (%) (Auto) 1 % (0-3) Neutrophils # (Auto) 3.9 x10^3uL (1.8-7.7) Lymphocytes # (Auto) 2.1 x10^3/uL (1.0-4.8) Monocytes # (Auto) 0.8 x10^3/uL (0.0-1.1) Eosinophils # (Auto) 0.4 x10^3/uL (0.0-0.7) Basophils # (Auto) 0.0 x10^3/uL (0.0-0.2) Sodium Level 146 mmol/L (136-145) H Potassium Level 3.8 mmol/L (3.5-5.1) Chloride Level 107 mmol/L (98-107) Carbon Dioxide Level 30 mmol/L (21-32) Anion Gap 9 (6-14) Blood Urea Nitrogen 22 mg/dL (8-26) Creatinine 1.0 mg/dL (0.7-1.3) Estimated GFR (Cockcroft-Gault) 72.6 BUN/Creatinine Ratio 22 (6-20) H Glucose Level 95 mg/dL (70-99) Calcium Level 8.9 mg/dL (8.5-10.1) Total Bilirubin 0.5 mg/dL (0.2-1.0) Aspartate Amino Transferase (AST) 30 U/L (15-37) Alanine Aminotransferase (ALT) 42 U/L (16-63) Alkaline Phosphatase 83 U/L (46-116) Total Protein 7.1 g/dL (6.4-8.2) Albumin 3.2 g/dL (3.4-5.0) L Albumin/Globulin Ratio 0.8 (1.0-1.7) L Valproic Acid Level 25 mcg/mL (50-100) L Valproic Acid Last Dose Date 09/27/20 Valproic Acid Last Dose Time 2100 Current Medications: Meds: Current Medications Medications (Trade) Dose Ordered Sig/Sonia Route PRN Reason Start Time Stop Time Status Last Admin Dose Admin Divalproex Sodium (Depakote Sprinkles) 250 mg HS PO 09/28/20 21:00 09/28/20 20:03 I have reviewed the current psychotropics carefully including drug interactions. Risk benefit ratio favors no change other than as noted in my dictated progress note. Diagnosis: Problems: (1) Impulse control disorder, unspecified (2) Vascular dementia with delusions (3) Anxiety disorder, unspecified (4) Vascular dementia with depression (5) Major neurocognitive disorder (6) Dementia in Alzheimer's disease with depression (7) Dementia in Alzheimer's disease with delusions (8) Dementia of the Alzheimer's type with early onset with behavioral distur bance (9) Major depressive disorder with psychotic features PRABHAKAR MOLINA MD Sep 28, 2020 21:01
[2020-09-29 05:54] VITALS: BP 133/83
--- NOTE | 2020-09-29 07:52 | PDOC ---
Exam Note: Manish Note: This note is a late entry for 09/28/2020 covers elements not covered in my initial note. Subjective: The patient was seen individually in the evening of 09/28/2020 with Roselyn ULLOA, discussed and reviewed the chart. He slept 7-1/4 hours previous night. Overall the patient remains confused, somewhat anxious, restless at times, but better than before. Valproic acid level is subtherapeutic at 25. Review of Systems: Ambulation impaired with walker. No CV, , pulmonary, eye, ENT system symptoms on review. Mental Status Exam: The patient is oriented to himself. Insight and judgment, recent and remote memory, attention and concentration, fund of knowledge is poor consistent with his diagnosis. Laboratory Data: Reviewed. Impression: Major neurocognitive disorder Alzheimer vascular with delusion, depression, behavioral disturbance. Major depressive disorder with psychotic features. Anxiety disorder unspecified. Impulse control disorder unspecified. Plan: No change from initial note. The patient is currently on Depakote Sprinkle 125 mg twice a day. We will start 250 mg h.s. In addition check CBC, CMP, valproic acid level in 3 days. Continue rest of the psychotropics unchanged. Assessment: Vital Signs/I&O: Vital Signs Date Time Temp Pulse Resp B/P (MAP) Pulse Ox O2 Delivery O2 Flow Rate FiO2 09/29/20 05:54 97.5 86 16 133/83 (100) 93 09/24/20 15:55 Room Air I & O 09/28/20 09/28/20 09/29/20 15:00 23:00 07:00 Intake Total 480 ml 360 ml Balance 480 ml 360 ml Current Medications: Meds: Current Medications Medications (Trade) Dose Ordered Sig/Sonia Route PRN Reason Start Time Stop Time Status Last Admin Dose Admin Fenofibrate (Tricor) 48 mg DAILY PO 09/18/20 09:00 09/28/20 08:07 Fluticasone Propionate (Flonase) 2 spray DAILY NS 09/18/20 09:00 09/28/20 08:11 Metoprolol Succinate (Toprol Xl) 50 mg DAILY PO 09/18/20 09:00 09/28/20 08:08 Mirtazapine (Remeron) 15 mg QHS PO 09/17/20 21:00 09/28/20 20:02 Olanzapine (ZyPREXA ZYDIS) 5 mg DAILY PO 09/18/20 09:00 09/17/20 15:00 DC Pantoprazole Sodium (Protonix) 40 mg DAILY PO 09/18/20 09:00 09/28/20 08:07 Multivitamins/ Calcium (Thera-M Plus) 1 tab DAILY PO 09/18/20 09:00 09/28/20 08:07 Acetaminophen (Tylenol) 650 mg PRN Q6HRS PRN PO MILD PAIN / TEMP > 100.3'F 09/17/20 12:30 09/28/20 15:17 Multi-Ingredient Ointment (Analgesic [place]) 1 olu PRN QID PRN TP MUSCLE PAIN 09/17/20 12:30 09/23/20 21:23 Al Hydroxide/Mg Hydroxide (Mylanta Plus Xs) 15 ml PRN AFTMEALHC PRN PO DYSPEPSIA 09/17/20 12:30 Magnesium Hydroxide (Milk Of Magnesia) 2,400 mg PRN QHS PRN PO CONSTIPATION 09/17/20 12:30 Quetiapine Fumarate (SEROquel) 25 mg PRN Q2HRS PRN PO ANXIETY / AGITATION 09/17/20 14:45 09/28/20 18:09 Olanzapine (ZyPREXA) 2.5 mg TID PO 09/17/20 21:00 09/18/20 20:32 DC 09/18/20 14:07 Trazodone HCl (Desyrel) 50 mg PRN QHS PRN PO INSOMNIA, MAY REPEAT X1 09/17/20 14:45 09/28/20 20:33 Lidocaine HCl (Uro-Jet) 1 olu PRN DAILY PRN MM SEE ADMIN INSTRUCTIONS 09/18/20 17:15 Divalproex Sodium (Depakote Sprinkles) 250 mg BIDWMEALS PO 09/24/20 19:00 09/24/20 19:05 DC Divalproex Sodium (Depakote Sprinkles) 250 mg BIDWMEALS PO 09/25/20 09:00 09/28/20 17:19 Cephalexin HCl (Keflex) 500 mg TID PO 09/26/20 21:00 10/03/20 21:00 09/28/20 20:02 Divalproex Sodium (Depakote Sprinkles) 250 mg HS PO 09/28/20 21:00 09/28/20 20:03 Current Medications Medications (Trade) Dose Ordered Sig/Sonia Route PRN Reason Start Time Stop Time Status Last Admin Dose Admin Divalproex Sodium (Depakote Sprinkles) 250 mg HS PO 09/28/20 21:00 09/28/20 20:03 I have reviewed the current psychotropics carefully including drug interactions. Risk benefit ratio favors no change other than as noted in my dictated progress note. Diagnosis: Problems: (1) Impulse control disorder, unspecified (2) Vascular dementia with delusions (3) Anxiety disorder, unspecified (4) Vascular dementia with depression (5) Major neurocognitive disorder (6) Dementia in Alzheimer's disease with depression (7) Dementia in Alzheimer's disease with delusions (8) Dementia of the Alzheimer's type with early onset with behavioral disturbance (9) Major depressive disorder with psychotic features PRABHAKAR MOLINA MD Sep 29, 2020 07:52
[2020-09-29] MEDS: FLUTICASONE 50MCG/NASAL SPRAY 16GM BOTTLE. NS SCH (09:00)
[2020-09-29] MEDS: METOPROLOL SUCC 24HR ER 50 MG TAB.ER.24H. PO SCH (09:00)
[2020-09-29] MEDS: CEPHALEXIN 250 MG CAPSULE PO SCH ×3 (10:42→20:07)
[2020-09-29] MEDS: DIVALPROEX 125 MG CAP.SPRINK PO SCH ×3 (10:42→20:07)
[2020-09-29] MEDS: PANTOPRAZOLE 40 MG TABLET. PO SCH (10:43)
[2020-09-29] MEDS: FENOFIBRATE NANOCRYSTALLIZED 48 MG TABLET PO SCH (10:43)
[2020-09-29] MEDS: MULTIVITAMIN with MINERAL TABLET. PO SCH (10:43)
[2020-09-29 16:10] VITALS: BP 133/86
[2020-09-29] MEDS: MIRTAZAPINE 15 MG TABLET PO SCH (20:07)
[2020-09-29] MEDS: traZODone 50 MG TABLET. PO PRN (20:07)
--- NOTE | 2020-09-29 20:47 | PDOC ---
Exam Note: Manish Note: Please also refer to the separate dictated note~for this date of service dictated separately.~Patient seen individually. Discussed the patient with Nursing staff reviewed the chart.~Reviewed interim history and current functioning. Reviewed vital signs,~Labs/ Radiology~and current medications noted below. Continue current treatment with the changes noted in the dictated addendum note Assessment: Vital Signs/I&O: Vital Signs Date Time Temp Pulse Resp B/P (MAP) Pulse Ox O2 Delivery O2 Flow Rate FiO2 09/29/20 16:10 97.5 81 16 133/86 (102) 96 Room Air I & O 09/28/20 09/28/20 09/29/20 15:00 23:00 07:00 Intake Total 480 ml 360 ml Balance 480 ml 360 ml Current Medications: Meds: Current Medications Medications (Trade) Dose Ordered Sig/Sonia Route PRN Reason Start Time Stop Time Status Last Admin Dose Admin Divalproex Sodium (Depakote Sprinkles) 250 mg HS PO 09/28/20 21:00 09/29/20 20:07 I have reviewed the current psychotropics carefully including drug interactions. Risk benefit ratio favors no change other than as noted in my dictated progress note. Diagnosis: Problems: (1) Impulse control disorder, unspecified (2) Vascular dementia with delusions (3) Anxiety disorder, unspecified (4) Vascular dementia with depression (5) Major neurocognitive disorder (6) Dementia in Alzheimer's disease with depression (7) Dementia in Alzheimer's disease with delusions (8) Dementia of the Alzheimer's type with early onset with behavioral disturbance (9) Major depressive disorder with psychotic features PRABHAKAR MOLINA MD Sep 29, 2020 20:47
[2020-09-30] MEDS: FENOFIBRATE NANOCRYSTALLIZED 48 MG TABLET PO SCH (11:47)
[2020-09-30] MEDS: CEPHALEXIN 250 MG CAPSULE PO SCH ×3 (11:47→19:54)
[2020-09-30] MEDS: MULTIVITAMIN with MINERAL TABLET. PO SCH (11:47)
[2020-09-30] MEDS: METOPROLOL SUCC 24HR ER 50 MG TAB.ER.24H. PO SCH (11:47)
[2020-09-30] MEDS: PANTOPRAZOLE 40 MG TABLET. PO SCH (11:47)
[2020-09-30] MEDS: FLUTICASONE 50MCG/NASAL SPRAY 16GM BOTTLE. NS SCH (11:48)
[2020-09-30] MEDS: DIVALPROEX 125 MG CAP.SPRINK PO SCH ×3 (11:48→19:54)
[2020-09-30 16:13] VITALS: BP 119/77
[2020-09-30] MEDS: QUEtiapine 25 MG TABLET. PO PRN ×2 (17:18→20:07)
[2020-09-30] MEDS: MIRTAZAPINE 15 MG TABLET PO SCH (19:54)
[2020-09-30] MEDS: traZODone 50 MG TABLET. PO PRN (19:54)
[2020-09-30] MEDS: LACTOBACILLUS RHAMNOSUS GG 1 CAPSULE. PO SCH (19:55)
--- NOTE | 2020-09-30 21:27 | PDOC ---
Exam Note: Manish Note: Please also refer to the separate dictated note~for this date of service dictated separately.~Patient seen individually. Discussed the patient with Nursing staff reviewed the chart.~Reviewed interim history and current functioning. Reviewed vital signs,~Labs/ Radiology~and current medications noted below. Continue current treatment with the changes noted in the dictated addendum note Assessment: Vital Signs/I&O: Vital Signs Date Time Temp Pulse Resp B/P (MAP) Pulse Ox O2 Delivery O2 Flow Rate FiO2 09/30/20 16:13 97.8 67 20 119/77 (91) 97 09/29/20 16:10 Room Air I & O 09/29/20 09/29/20 09/30/20 15:00 23:00 07:00 Intake Total 360 ml 240 ml Balance 360 ml 240 ml Current Medications: Meds: Current Medications Medications (Trade) Dose Ordered Sig/Sonia Route PRN Reason Start Time Stop Time Status Last Admin Dose Admin Lactobacillus Rhamnosus (Culturelle) 1 cap BID PO 09/30/20 21:00 09/30/20 19:55 I have reviewed the current psychotropics carefully including drug interactions. Risk benefit ratio favors no change other than as noted in my dictated progress note. Diagnosis: Problems: (1) Impulse control disorder, unspecified (2) Vascular dementia with delusions (3) Anxiety disorder, unspecified (4) Vascular dementia with depression (5) Major neurocognitive disorder (6) Dementia in Alzheimer's disease with depression (7) Dementia in Alzheimer's disease with delusions (8) Dementia of the Alzheimer's type with early onset with behavioral disturbance (9) Major depressive disorder with psychotic features PRABHAKAR MOLINA MD Sep 30, 2020 21:27
[2020-10-01] MEDS: ACETAMINOPHEN 325 MG TABLET PO PRN (05:36)
[2020-10-01 06:27] VITALS: BP 147/92
[2020-10-01 06:53] LABS: BASO # 0.1 x10^3/uL (0.0-0.2); BASO % 1 % (0-3); EOS # 0.3 x10^3/uL (0.0-0.7); EOS % 4 % (0-3); HEMATOCRIT 42.8 % (39.0-53.0); HEMOGLOBIN 14.4 g/dL (13.0-17.5); LYMPH # 1.9 x10^3/uL (1.0-4.8); LYMPH % 25 % (24-48); MEAN CORPUSCULAR HEMOGLOBIN 30 pg (25-35); MEAN CORPUSCULAR HGB CONC 34 g/dL (31-37); MEAN CORPUSCULAR VOLUME 90 fL (79-100); MONO # 0.9 x10^3/uL (0.0-1.1); MONO % 12 % (0-9); NEUT # 4.3 x10^3uL (1.8-7.7); NEUT % 58 % (31-73); PLATELET COUNT 248 x10^3/uL (140-400); RED BLOOD COUNT 4.75 x10^6/uL (4.30-5.70); RED CELL DISTRIBUTION WIDTH 13.6 % (11.5-14.5); WHITE BLOOD COUNT 7.4 x10^3/uL (4.0-11.0)
[2020-10-01 07:10] LABS: ALBUMIN 2.9 g/dL (3.4-5.0); ALBUMIN/GLOBULIN RATIO 0.8 (1.0-1.7); ALK PHOS 70 U/L (46-116); ANION GAP 9 (6-14); AST (SGOT) 21 U/L (15-37); BLOOD UREA NITROGEN 23 mg/dL (8-26); CARBON DIOXIDE 30 mmol/L (21-32); CHLORIDE 108 mmol/L (98-107); POTASSIUM 3.9 mmol/L (3.5-5.1); SODIUM 147 mmol/L (136-145); TOTAL BILIRUBIN 0.5 mg/dL (0.2-1.0); TOTAL PROTEIN 6.5 g/dL (6.4-8.2)
[2020-10-01 07:27] LABS: ALT (SGPT) 33 U/L (16-63); BUN/CREATININE RATIO 21 (6-20); CALCIUM 8.9 mg/dL (8.5-10.1); CREATININE 1.1 mg/dL (0.7-1.3); GFR 64.9; GLUCOSE 107 mg/dL (70-99)
[2020-10-01 07:36] LABS: VAL ACID 42 mcg/mL (50-100)
--- NOTE | 2020-10-01 07:37 | PDOC ---
Exam Note: Manish Note: This note is a late entry for 09/29/2020 covers elements not covered in my initial note. Subjective: The patient was seen individually in the evening of 09/29/2020 with Roselyn ULLOA, discussed and reviewed the chart. He slept 7-1/4 hours previous night. The patient slept in, in the morning. He has been ambulating with a walker, somewhat agitated in the evening. Received Seroquel. [birth year] and he seemed to be able to recognize this. Review of Systems: Ambulation impaired with walker. No CV, , pulmonary, eye, ENT system symptoms on review. Mental Status Exam: The patient is oriented to himself. He is pleasant, verbal, interactive as I met with him, less paranoid, anxious however. Insight and judgment, recent and remote memory, attention and concentration, fund of knowledge is poor consistent with his diagnoses. No suicidal or homicidal ideation. Laboratory Data: Reviewed. Impression: Major neurocognitive disorder Alzheimer vascular with delusion, depression, behavioral disturbance. Major depressive disorder with psychotic features. Anxiety disorder unspecified. Impulse control disorder unspecified. Plan: No change from initial note. Assessment: Vital Signs/I&O: Vital Signs Date Time Temp Pulse Resp B/P (MAP) Pulse Ox O2 Delivery O2 Flow Rate FiO2 10/01/20 06:27 97.5 118 22 147/92 (110) 96 Room Air I & O 09/30/20 09/30/20 10/01/20 14:59 22:59 06:59 Intake Total 480 ml 600 ml Balance 480 ml 600 ml Labs: Laboratory Tests Test 10/01/20 06:24 White Blood Count 7.4 x10^3/uL (4.0-11.0) Red Blood Count 4.75 x10^6/uL (4.30-5.70) Hemoglobin 14.4 g/dL (13.0-17.5) Hematocrit 42.8 % (39.0-53.0) Mean Corpuscular Volume 90 fL (79-100) Mean Corpuscular Hemoglobin 30 pg (25-35) Mean Corpuscular Hemoglobin Concent 34 g/dL (31-37) Red Cell Distribution Width 13.6 % (11.5-14.5) Platelet Count 248 x10^3/uL (140-400) Neutrophils (%) (Auto) 58 % (31-73) Lymphocytes (%) (Auto) 25 % (24-48) Monocytes (%) (Auto) 12 % (0-9) H Eosinophils (%) (Auto) 4 % (0-3) H Basophils (%) (Auto) 1 % (0-3) Neutrophils # (Auto) 4.3 x10^3uL (1.8-7.7) Lymphocytes # (Auto) 1.9 x10^3/uL (1.0-4.8) Monocytes # (Auto) 0.9 x10^3/uL (0.0-1.1) Eosinophils # (Auto) 0.3 x10^3/uL (0.0-0.7) Basophils # (Auto) 0.1 x10^3/uL (0.0-0.2) Current Medications: Meds: Laboratory Tests Test 10/01/20 06:24 White Blood Count 7.4 x10^3/uL Red Blood Count 4.75 x10^6/uL Hemoglobin 14.4 g/dL Hematocrit 42.8 % Mean Corpuscular Volume 90 fL Mean Corpuscular Hemoglobin 30 pg Mean Corpuscular Hemoglobin Concent 34 g/dL Red Cell Distribution Width 13.6 % Platelet Count 248 x10^3/uL Neutrophils (%) (Auto) 58 % Lymphocytes (%) (Auto) 25 % Monocytes (%) (Auto) 12 % Eosinophils (%) (Auto) 4 % Basophils (%) (Auto) 1 % Neutrophils # (Auto) 4.3 x10^3uL Lymphocytes # (Auto) 1.9 x10^3/uL Monocytes # (Auto) 0.9 x10^3/uL Eosinophils # (Auto) 0.3 x10^3/uL Basophils # (Auto) 0.1 x10^3/uL Current Medications Medications (Trade) Dose Ordered Sig/Sonia Route PRN Reason Start Time Stop Time Status Last Admin Dose Admin Fenofibrate (Tricor) 48 mg DAILY PO 09/18/20 09:00 09/30/20 11:47 Fluticasone Propionate (Flonase) 2 spray DAILY NS 09/18/20 09:00 09/30/20 11:48 Metoprolol Succinate (Toprol Xl) 50 mg DAILY PO 09/18/20 09:00 09/30/20 11:47 Mirtazapine (Remeron) 15 mg QHS PO 09/17/20 21:00 09/30/20 19:54 Olanzapine (ZyPREXA ZYDIS) 5 mg DAILY PO 09/18/20 09:00 09/17/20 15:00 DC Pantoprazole Sodium (Protonix) 40 mg DAILY PO 09/18/20 09:00 09/30/20 11:47 Multivitamins/ Calcium (Thera-M Plus) 1 tab DAILY PO 09/18/20 09:00 09/30/20 11:47 Acetaminophen (Tylenol) 650 mg PRN Q6HRS PRN PO MILD PAIN / TEMP > 100.3'F 09/17/20 12:30 10/01/20 05:36 Multi-Ingredient Ointment (Analgesic [place]) 1 olu PRN QID PRN TP MUSCLE PAIN 09/17/20 12:30 09/23/20 21:23 Al Hydroxide/Mg Hydroxide (Mylanta Plus Xs) 15 ml PRN AFTMEALHC PRN PO DYSPEPSIA 09/17/20 12:30 Magnesium Hydroxide (Milk Of Magnesia) 2,400 mg PRN QHS PRN PO CONSTIPATION 09/17/20 12:30 Quetiapine Fumarate (SEROquel) 25 mg PRN Q2HRS PRN PO ANXIETY / AGITATION 09/17/20 14:45 09/30/20 20:07 Olanzapine (ZyPREXA) 2.5 mg TID PO 09/17/20 21:00 09/18/20 20:32 DC 09/18/20 14:07 Trazodone HCl (Desyrel) 50 mg PRN QHS PRN PO INSOMNIA, MAY REPEAT X1 09/17/20 14:45 09/30/20 19:54 Lidocaine HCl (Uro-Jet) 1 olu PRN DAILY PRN MM SEE ADMIN INSTRUCTIONS 09/18/20 17:15 Divalproex Sodium (Depakote Sprinkles) 250 mg BIDWMEALS PO 09/24/20 19:00 09/24/20 19:05 DC Divalproex Sodium (Depakote Sprinkles) 250 mg BIDWMEALS PO 09/25/20 09:00 09/30/20 17:18 Cephalexin HCl (Keflex) 500 mg TID PO 09/26/20 21:00 10/03/20 21:00 09/30/20 19:54 Divalproex Sodium (Depakote Sprinkles) 250 mg HS PO 09/28/20 21:00 09/30/20 19:54 Lactobacillus Rhamnosus (Culturelle) 1 cap BID PO 09/30/20 21:00 09/30/20 19:55 Current Medications Medications (Trade) Dose Ordered Sig/Sonia Route PRN Reason Start Time Stop Time Status Last Admin Dose Admin Lactobacillus Rhamnosus (Culturelle) 1 cap BID PO 09/30/20 21:00 09/30/20 19:55 I have reviewed the current psychotropics carefully including drug interactions. Risk benefit ratio favors no change other than as noted in my dictated progress note. Diagnosis: Problems: (1) Impulse control disorder, unspecified (2) Vascular dementia with delusions (3) Anxiety disorder, unspecified (4) Vascular dementia with depression (5) Major neurocognitive disorder (6) Dementia in Alzheimer's disease with depression (7) Dementia in Alzheimer's disease with delusions (8) Dementia of the Alzheimer's type with early onset with behavioral disturbance (9) Major depressive disorder with psychotic features PRABHAKAR MOLINA MD Oct 01, 2020 07:37
--- NOTE | 2020-10-01 07:55 | PDOC ---
Exam Note: Manish Note: This note is a late entry for 09/30/2020 covers elements not covered in my initial note. Subjective: The patient was seen individually in the evening of 09/30/2020 with Juan ULLOA, discussed and reviewed the chart. He slept 7 hours previous night. The patient is somewhat labile in his mood this morning and abrasive. He took 3 staff members to take him for breakfast but he spat out his Seroquel. Later in the day he did better. He was agitated in the evening, had to be in the [facility], which is where I met with him this evening. Review of Systems: Ambulation impaired with walker. No CV, , pulmonary, eye, ENT system symptoms on review. Mental Status Exam: The patient is oriented to himself. Insight and judgment, recent and remote memory, attention and concentration, fund of knowledge is poor consistent with his diagnoses. No suicidal or homicidal ideation. Laboratory Data: Reviewed. Impression: Major neurocognitive disorder Alzheimer vascular with delusion, depression, behavioral disturbance. Major depressive disorder with psychotic features. Anxiety disorder unspecified. Impulse control disorder unspecified. Plan: No change from initial note. Assessment: Vital Signs/I&O: Vital Signs Date Time Temp Pulse Resp B/P (MAP) Pulse Ox O2 Delivery O2 Flow Rate FiO2 10/01/20 06:27 97.5 118 22 147/92 (110) 96 Room Air I & O 09/30/20 09/30/20 10/01/20 15:00 23:00 07:00 Intake Total 480 ml 600 ml Balance 480 ml 600 ml Labs: Laboratory Tests Test 10/01/20 06:24 White Blood Count 7.4 x10^3/uL (4.0-11.0) Red Blood Count 4.75 x10^6/uL (4.30-5.70) Hemoglobin 14.4 g/dL (13.0-17.5) Hematocrit 42.8 % (39.0-53.0) Mean Corpuscular Volume 90 fL (79-100) Mean Corpuscular Hemoglobin 30 pg (25-35) Mean Corpuscular Hemoglobin Concent 34 g/dL (31-37) Red Cell Distribution Width 13.6 % (11.5-14.5) Platelet Count 248 x10^3/uL (140-400) Neutrophils (%) (Auto) 58 % (31-73) Lymphocytes (%) (Auto) 25 % (24-48) Monocytes (%) (Auto) 12 % (0-9) H Eosinophils (%) (Auto) 4 % (0-3) H Basophils (%) (Auto) 1 % (0-3) Neutrophils # (Auto) 4.3 x10^3uL (1.8-7.7) Lymphocytes # (Auto) 1.9 x10^3/uL (1.0-4.8) Monocytes # (Auto) 0.9 x10^3/uL (0.0-1.1) Eosinophils # (Auto) 0.3 x10^3/uL (0.0-0.7) Basophils # (Auto) 0.1 x10^3/uL (0.0-0.2) Sodium Level 147 mmol/L (136-145) H Potassium Level 3.9 mmol/L (3.5-5.1) Chloride Level 108 mmol/L (98-107) H Carbon Dioxide Level 30 mmol/L (21-32) Anion Gap 9 (6-14) Blood Urea Nitrogen 23 mg/dL (8-26) Creatinine 1.1 mg/dL (0.7-1.3) Estimated GFR (Cockcroft-Gault) 64.9 BUN/Creatinine Ratio 21 (6-20) H Glucose Level 107 mg/dL (70-99) H Calcium Level 8.9 mg/dL (8.5-10.1) Total Bilirubin 0.5 mg/dL (0.2-1.0) Aspartate Amino Transferase (AST) 21 U/L (15-37) Alanine Aminotransferase (ALT) 33 U/L (16-63) Alkaline Phosphatase 70 U/L (46-116) Total Protein 6.5 g/dL (6.4-8.2) Albumin 2.9 g/dL (3.4-5.0) L Albumin/Globulin Ratio 0.8 (1.0-1.7) L Valproic Acid Level 42 mcg/mL (50-100) L Valproic Acid Last Dose Date 09/30/20 Valproic Acid Last Dose Time 2100 Current Medications: Meds: Laboratory Tests Test 10/01/20 06:24 White Blood Count 7.4 x10^3/uL Red Blood Count 4.75 x10^6/uL Hemoglobin 14.4 g/dL Hematocrit 42.8 % Mean Corpuscular Volume 90 fL Mean Corpuscular Hemoglobin 30 pg Mean Corpuscular Hemoglobin Concent 34 g/dL Red Cell Distribution Width 13.6 % Platelet Count 248 x10^3/uL Neutrophils (%) (Auto) 58 % Lymphocytes (%) (Auto) 25 % Monocytes (%) (Auto) 12 % Eosinophils (%) (Auto) 4 % Basophils (%) (Auto) 1 % Neutrophils # (Auto) 4.3 x10^3uL Lymphocytes # (Auto) 1.9 x10^3/uL Monocytes # (Auto) 0.9 x10^3/uL Eosinophils # (Auto) 0.3 x10^3/uL Basophils # (Auto) 0.1 x10^3/uL Sodium Level 147 mmol/L Potassium Level 3.9 mmol/L Chloride Level 108 mmol/L Carbon Dioxide Level 30 mmol/L Anion Gap 9 Blood Urea Nitrogen 23 mg/dL Creatinine 1.1 mg/dL Estimated GFR (Cockcroft-Gault) 64.9 BUN/Creatinine Ratio 21 Glucose Level 107 mg/dL Calcium Level 8.9 mg/dL Total Bilirubin 0.5 mg/dL Aspartate Amino Transf (AST/SGOT) 21 U/L Alanine Aminotransferase (ALT/SGPT) 33 U/L Alkaline Phosphatase 70 U/L Total Protein 6.5 g/dL Albumin 2.9 g/dL Albumin/Globulin Ratio 0.8 Valproic Acid (Depakene) Level 42 mcg/mL Valproic Acid Last Dose Date 09/30/20 Valproic Acid Last Dose Time 2100 Current Medications Medications (Trade) Dose Ordered Sig/Sonia Route PRN Reason Start Time Stop Time Status Last Admin Dose Admin Fenofibrate (Tricor) 48 mg DAILY PO 09/18/20 09:00 09/30/20 11:47 Fluticasone Propionate (Flonase) 2 spray DAILY NS 09/18/20 09:00 09/30/20 11:48 Metoprolol Succinate (Toprol Xl) 50 mg DAILY PO 09/18/20 09:00 09/30/20 11:47 Mirtazapine (Remeron) 15 mg QHS PO 09/17/20 21:00 09/30/20 19:54 Olanzapine (ZyPREXA ZYDIS) 5 mg DAILY PO 09/18/20 09:00 09/17/20 15:00 DC Pantoprazole Sodium (Protonix) 40 mg DAILY PO 09/18/20 09:00 09/30/20 11:47 Multivitamins/ Calcium (Thera-M Plus) 1 tab DAILY PO 09/18/20 09:00 09/30/20 11:47 Acetaminophen (Tylenol) 650 mg PRN Q6HRS PRN PO MILD PAIN / TEMP > 100.3'F 09/17/20 12:30 10/01/20 05:36 Multi-Ingredient Ointment (Analgesic [place]) 1 olu PRN QID PRN TP MUSCLE PAIN 09/17/20 12:30 09/23/20 21:23 Al Hydroxide/Mg Hydroxide (Mylanta Plus Xs) 15 ml PRN AFTMEALHC PRN PO DYSPEPSIA 09/17/20 12:30 Magnesium Hydroxide (Milk Of Magnesia) 2,400 mg PRN QHS PRN PO CONSTIPATION 09/17/20 12:30 Quetiapine Fumarate (SEROquel) 25 mg PRN Q2HRS PRN PO ANXIETY / AGITATION 09/17/20 14:45 09/30/20 20:07 Olanzapine (ZyPREXA) 2.5 mg TID PO 09/17/20 21:00 09/18/20 20:32 DC 09/18/20 14:07 Trazodone HCl (Desyrel) 50 mg PRN QHS PRN PO INSOMNIA, MAY REPEAT X1 09/17/20 14:45 09/30/20 19:54 Lidocaine HCl (Uro-Jet) 1 olu PRN DAILY PRN MM SEE ADMIN INSTRUCTIONS 09/18/20 17:15 Divalproex Sodium (Depakote Sprinkles) 250 mg BIDWMEALS PO 09/24/20 19:00 09/24/20 19:05 DC Divalproex Sodium (Depakote Sprinkles) 250 mg BIDWMEALS PO 09/25/20 09:00 09/30/20 17:18 Cephalexin HCl (Keflex) 500 mg TID PO 09/26/20 21:00 10/03/20 21:00 09/30/20 19:54 Divalproex Sodium (Depakote Sprinkles) 250 mg HS PO 09/28/20 21:00 09/30/20 19:54 Lactobacillus Rhamnosus (Culturelle) 1 cap BID PO 09/30/20 21:00 09/30/20 19:55 Current Medications Medications (Trade) Dose Ordered Sig/Sonia Route PRN Reason Start Time Stop Time Status Last Admin Dose Admin Lactobacillus Rhamnosus (Culturelle) 1 cap BID PO 09/30/20 21:00 3 19:55 I have reviewed the current psychotropics carefully including drug interactions. Risk benefit ratio favors no change other than as noted in my dictated progress note. Diagnosis: Problems: (1) Impulse control disorder, unspecified (2) Vascular dementia with delusions (3) Anxiety disorder, unspecified (4) Vascular dementia with depression (5) Major neurocognitive disorder (6) Dementia in Alzheimer's disease with depression (7) Dementia in Alzheimer's disease with delusions (8) Dementia of the Alzheimer's type with early onset with behavioral disturbance (9) Major depressive disorder with psychotic features PRABHAKAR MOLINA MD Oct 01, 2020 07:55
[2020-10-01] MEDS: PANTOPRAZOLE 40 MG TABLET. PO SCH (08:30)
[2020-10-01] MEDS: DIVALPROEX 125 MG CAP.SPRINK PO SCH ×3 (08:30→19:50)
[2020-10-01] MEDS: CEPHALEXIN 250 MG CAPSULE PO SCH ×3 (08:31→19:50)
[2020-10-01] MEDS: MULTIVITAMIN with MINERAL TABLET. PO SCH (08:31)
[2020-10-01] MEDS: FENOFIBRATE NANOCRYSTALLIZED 48 MG TABLET PO SCH (08:31)
[2020-10-01] MEDS: LACTOBACILLUS RHAMNOSUS GG 1 CAPSULE. PO SCH ×2 (08:31→19:50)
[2020-10-01] MEDS: FLUTICASONE 50MCG/NASAL SPRAY 16GM BOTTLE. NS SCH (08:31)
[2020-10-01] MEDS: METOPROLOL SUCC 24HR ER 50 MG TAB.ER.24H. PO SCH (08:31)
[2020-10-01 16:09] VITALS: BP 157/92
[2020-10-01] MEDS: MIRTAZAPINE 15 MG TABLET PO SCH (19:50)
[2020-10-01] MEDS: QUEtiapine 25 MG TABLET. PO PRN (19:51)
[2020-10-01] MEDS: traZODone 50 MG TABLET. PO PRN (19:51)
--- NOTE | 2020-10-01 21:01 | PDOC ---
Exam Note: Manish Note: Please also refer to the separate dictated note~for this date of service dictated separately.~Patient seen individually. Discussed the patient with Nursing staff reviewed the chart.~Reviewed interim history and current functioning. Reviewed vital signs,~Labs/ Radiology~and current medications noted below. Continue current treatment with the changes noted in the dictated addendum note Assessment: Vital Signs/I&O: Vital Signs Date Time Temp Pulse Resp B/P (MAP) Pulse Ox O2 Delivery O2 Flow Rate FiO2 10/01/20 16:09 98.1 105 20 157/92 (113) 96 Room Air I & O 09/30/20 09/30/20 10/01/20 15:00 23:00 07:00 Intake Total 480 ml 600 ml Balance 480 ml 600 ml Labs: Laboratory Tests Test 10/01/20 06:24 White Blood Count 7.4 x10^3/uL (4.0-11.0) Red Blood Count 4.75 x10^6/uL (4.30-5.70) Hemoglobin 14.4 g/dL (13.0-17.5) Hematocrit 42.8 % (39.0-53.0) Mean Corpuscular Volume 90 fL (79-100) Mean Corpuscular Hemoglobin 30 pg (25-35) Mean Corpuscular Hemoglobin Concent 34 g/dL (31-37) Red Cell Distribution Width 13.6 % (11.5-14.5) Platelet Count 248 x10^3/uL (140-400) Neutrophils (%) (Auto) 58 % (31-73) Lymphocytes (%) (Auto) 25 % (24-48) Monocytes (%) (Auto) 12 % (0-9) H Eosinophils (%) (Auto) 4 % (0-3) H Basophils (%) (Auto) 1 % (0-3) Neutrophils # (Auto) 4.3 x10^3uL (1.8-7.7) Lymphocytes # (Auto) 1.9 x10^3/uL (1.0-4.8) Monocytes # (Auto) 0.9 x10^3/uL (0.0-1.1) Eosinophils # (Auto) 0.3 x10^3/uL (0.0-0.7) Basophils # (Auto) 0.1 x10^3/uL (0.0-0.2) Sodium Level 147 mmol/L (136-145) H Potassium Level 3.9 mmol/L (3.5-5.1) Chloride Level 108 mmol/L (98-107) H Carbon Dioxide Level 30 mmol/L (21-32) Anion Gap 9 (6-14) Blood Urea Nitrogen 23 mg/dL (8-26) Creatinine 1.1 mg/dL (0.7-1.3) Estimated GFR (Cockcroft-Gault) 64.9 BUN/Creatinine Ratio 21 (6-20) H Glucose Level 107 mg/dL (70-99) H Calcium Level 8.9 mg/dL (8.5-10.1) Total Bilirubin 0.5 mg/dL (0.2-1.0) Aspartate Amino Transferase (AST) 21 U/L (15-37) Alanine Aminotransferase (ALT) 33 U/L (16-63) Alkaline Phosphatase 70 U/L (46-116) Total Protein 6.5 g/dL (6.4-8.2) Albumin 2.9 g/dL (3.4-5.0) L Albumin/Globulin Ratio 0.8 (1.0-1.7) L Valproic Acid Level 42 mcg/mL (50-100) L Valproic Acid Last Dose Date 09/30/20 Valproic Acid Last Dose Time 2100 Current Medications: Meds: Laboratory Tests Test 10/01/20 06:24 White Blood Count 7.4 x10^3/uL Red Blood Count 4.75 x10^6/uL Hemoglobin 14.4 g/dL Hematocrit 42.8 % Mean Corpuscular Volume 90 fL Mean Corpuscular Hemoglobin 30 pg Mean Corpuscular Hemoglobin Concent 34 g/dL Red Cell Distribution Width 13.6 % Platelet Count 248 x10^3/uL Neutrophils (%) (Auto) 58 % Lymphocytes (%) (Auto) 25 % Monocytes (%) (Auto) 12 % Eosinophils (%) (Auto) 4 % Basophils (%) (Auto) 1 % Neutrophils # (Auto) 4.3 x10^3uL Lymphocytes # (Auto) 1.9 x10^3/uL Monocytes # (Auto) 0.9 x10^3/uL Eosinophils # (Auto) 0.3 x10^3/uL Basophils # (Auto) 0.1 x10^3/uL Sodium Level 147 mmol/L Potassium Level 3.9 mmol/L Chloride Level 108 mmol/L Carbon Dioxide Level 30 mmol/L Anion Gap 9 Blood Urea Nitrogen 23 mg/dL Creatinine 1.1 mg/dL Estimated GFR (Cockcroft-Gault) 64.9 BUN/Creatinine Ratio 21 Glucose Level 107 mg/dL Calcium Level 8.9 mg/dL Total Bilirubin 0.5 mg/dL Aspartate Amino Transf (AST/SGOT) 21 U/L Alanine Aminotransferase (ALT/SGPT) 33 U/L Alkaline Phosphatase 70 U/L Total Protein 6.5 g/dL Albumin 2.9 g/dL Albumin/Globulin Ratio 0.8 Valproic Acid (Depakene) Level 42 mcg/mL Valproic Acid Last Dose Date 09/30/20 Valproic Acid Last Dose Time 2100 Current Medications Medications (Trade) Dose Ordered Sig/Sonia Route PRN Reason Start Time Stop Time Status Last Admin Dose Admin Fenofibrate (Tricor) 48 mg DAILY PO 09/18/20 09:00 10/01/20 08:31 Fluticasone Propionate (Flonase) 2 spray DAILY NS 09/18/20 09:00 10/01/20 08:31 Metoprolol Succinate (Toprol Xl) 50 mg DAILY PO 09/18/20 09:00 10/01/20 08:31 Mirtazapine (Remeron) 15 mg QHS PO 09/17/20 21:00 10/01/20 19:50 Olanzapine (ZyPREXA ZYDIS) 5 mg DAILY PO 09/18/20 09:00 09/17/20 15:00 DC Pantoprazole Sodium (Protonix) 40 mg DAILY PO 09/18/20 09:00 10/01/20 08:30 Multivitamins/ Calcium (Thera-M Plus) 1 tab DAILY PO 09/18/20 09:00 10/01/20 08:31 Acetaminophen (Tylenol) 650 mg PRN Q6HRS PRN PO MILD PAIN / TEMP > 100.3'F 09/17/20 12:30 10/01/20 05:36 Multi-Ingredient Ointment (Analgesic [place]) 1 olu PRN QID PRN TP MUSCLE PAIN 09/17/20 12:30 09/23/20 21:23 Al Hydroxide/Mg Hydroxide (Mylanta Plus Xs) 15 ml PRN AFTMEALHC PRN PO DYSPEPSIA 09/17/20 12:30 Magnesium Hydroxide (Milk Of Magnesia) 2,400 mg PRN QHS PRN PO CONSTIPATION 09/17/20 12:30 Quetiapine Fumarate (SEROquel) 25 mg PRN Q2HRS PRN PO ANXIETY / AGITATION 09/17/20 14:45 10/01/20 19:51 Olanzapine (ZyPREXA) 2.5 mg TID PO 09/17/20 21:00 09/18/20 20:32 DC 09/18/20 14:07 Trazodone HCl (Desyrel) 50 mg PRN QHS PRN PO INSOMNIA, MAY REPEAT X1 09/17/20 14:45 10/01/20 19:51 Lidocaine HCl (Uro-Jet) 1 olu PRN DAILY PRN MM SEE ADMIN INSTRUCTIONS 09/18/20 17:15 Divalproex Sodium (Depakote Sprinkles) 250 mg BIDWMEALS PO 09/24/20 19:00 09/24/20 19:05 DC Divalproex Sodium (Depakote Sprinkles) 250 mg BIDWMEALS PO 09/25/20 09:00 10/01/20 16:41 Cephalexin HCl (Keflex) 500 mg TID PO 09/26/20 21:00 10/03/20 21:00 10/01/20 19:50 Divalproex Sodium (Depakote Sprinkles) 250 mg HS PO 09/28/20 21:00 10/01/20 19:50 Lactobacillus Rhamnosus (Culturelle) 1 cap BID PO 09/30/20 21:00 10/01/20 19:50 I have reviewed the current psychotropics carefully including drug interactions. Risk benefit ratio favors no change other than as noted in my dictated progress note. Diagnosis: Problems: (1) Impulse control disorder, unspecified (2) Vascular dementia with delusions (3) Anxiety disorder, unspecified (4) Vascular dementia with depression (5) Major neurocognitive disorder (6) Dementia in Alzheimer's disease with depression (7) Dementia in Alzheimer's disease with delusions (8) Dementia of the Alzheimer's type with early onset with behavioral disturbance (9) Major depressive disorder with psychotic features PRABHAKAR MOLINA MD Oct 01, 2020 21:01
[2020-10-02 06:20] VITALS: BP 134/83
[2020-10-02] MEDS: MULTIVITAMIN with MINERAL TABLET. PO SCH (08:05)
[2020-10-02] MEDS: PANTOPRAZOLE 40 MG TABLET. PO SCH (08:05)
[2020-10-02] MEDS: DIVALPROEX 125 MG CAP.SPRINK PO SCH ×3 (08:05→19:37)
[2020-10-02] MEDS: FLUTICASONE 50MCG/NASAL SPRAY 16GM BOTTLE. NS SCH (08:06)
[2020-10-02] MEDS: LACTOBACILLUS RHAMNOSUS GG 1 CAPSULE. PO SCH ×2 (08:06→19:36)
[2020-10-02] MEDS: METOPROLOL SUCC 24HR ER 50 MG TAB.ER.24H. PO SCH (08:06)
[2020-10-02] MEDS: FENOFIBRATE NANOCRYSTALLIZED 48 MG TABLET PO SCH (08:06)
[2020-10-02] MEDS: CEPHALEXIN 250 MG CAPSULE PO SCH ×3 (08:06→19:36)
--- NOTE | 2020-10-02 08:24 | PDOC ---
Exam Note: Manish Note: This note is a late entry for 10/01/2020 covers elements not covered in my initial note. Subjective: The patient was seen individually in the evening of 10/01/2020 with Juan ULLOA, discussed and reviewed the chart. He slept 6-1/4 hours previous night. The patient is somewhat confused, resistive to interventions in the morning, later more social. Valproic acid level 42 on Depakote Sprinkle 250 mg t.i.d. Review of Systems: Ambulation impaired with walker. No CV, , pulmonary, eye, ENT system symptoms on review. Mental Status Exam: The patient is oriented to himself. Insight and judgment, recent and remote memory, attention and concentration, fund of knowledge is poor consistent with his diagnoses. No suicidal or homicidal ideation. Laboratory Data: Reviewed. Impression: Major neurocognitive disorder Alzheimer vascular with delusion, depression, behavioral disturbance. Major depressive disorder with psychotic features. Anxiety disorder unspecified. Impulse control disorder unspecified. Plan: Increase Depakote to 375 mg t.i.d. Check CBC, CMP, valproic acid level in 3 days. Adjust further as clinically indicated. Assessment: Vital Signs/I&O: Vital Signs Date Time Temp Pulse Resp B/P (MAP) Pulse Ox O2 Delivery O2 Flow Rate FiO2 10/02/20 08:06 94 134/83 10/02/20 06:20 96.9 18 95 Room Air I & O 10/01/20 10/01/20 10/02/20 15:00 23:00 07:00 Intake Total 720 ml 720 ml Balance 720 ml 720 ml Current Medications: Meds: Current Medications Medications (Trade) Dose Ordered Sig/Sonia Route PRN Reason Start Time Stop Time Status Last Admin Dose Admin Fenofibrate (Tricor) 48 mg DAILY PO 09/18/20 09:00 10/02/20 08:06 Fluticasone Propionate (Flonase) 2 spray DAILY NS 09/18/20 09:00 10/02/20 08:06 Metoprolol Succinate (Toprol Xl) 50 mg DAILY PO 09/18/20 09:00 10/02/20 08:06 Mirtazapine (Remeron) 15 mg QHS PO 09/17/20 21:00 10/01/20 19:50 Olanzapine (ZyPREXA ZYDIS) 5 mg DAILY PO 09/18/20 09:00 09/17/20 15:00 DC Pantoprazole Sodium (Protonix) 40 mg DAILY PO 09/18/20 09:00 10/02/20 08:05 Multivitamins/ Calcium (Thera-M Plus) 1 tab DAILY PO 09/18/20 09:00 10/02/20 08:05 Acetaminophen (Tylenol) 650 mg PRN Q6HRS PRN PO MILD PAIN / TEMP > 100.3'F 09/17/20 12:30 10/01/20 05:36 Multi-Ingredient Ointment (Analgesic [place]) 1 olu PRN QID PRN TP MUSCLE PAIN 09/17/20 12:30 09/23/20 21:23 Al Hydroxide/Mg Hydroxide (Mylanta Plus Xs) 15 ml PRN AFTMEALHC PRN PO DYSPEPSIA 09/17/20 12:30 Magnesium Hydroxide (Milk Of Magnesia) 2,400 mg PRN QHS PRN PO CONSTIPATION 09/17/20 12:30 Quetiapine Fumarate (SEROquel) 25 mg PRN Q2HRS PRN PO ANXIETY / AGITATION 09/17/20 14:45 10/01/20 19:51 Olanzapine (ZyPREXA) 2.5 mg TID PO 09/17/20 21:00 09/18/20 20:32 DC 09/18/20 14:07 Trazodone HCl (Desyrel) 50 mg PRN QHS PRN PO INSOMNIA, MAY REPEAT X1 09/17/20 14:45 10/01/20 19:51 Lidocaine HCl (Uro-Jet) 1 olu PRN DAILY PRN MM SEE ADMIN INSTRUCTIONS 09/18/20 17:15 Divalproex Sodium (Depakote Sprinkles) 250 mg BIDWMEALS PO 09/24/20 19:00 09/24/20 19:05 DC Divalproex Sodium (Depakote Sprinkles) 250 mg BIDWMEALS PO 09/25/20 09:00 10/01/20 21:26 DC 10/01/20 16:41 Cephalexin HCl (Keflex) 500 mg TID PO 09/26/20 21:00 10/03/20 21:00 10/02/20 08:06 Divalproex Sodium (Depakote Sprinkles) 250 mg HS PO 09/28/20 21:00 10/01/20 21:26 DC 10/01/20 19:50 Lactobacillus Rhamnosus (Culturelle) 1 cap BID PO 09/30/20 21:00 10/02/20 08:06 Divalproex Sodium (Depakote Sprinkles) 375 mg BIDWMEALS PO 10/02/20 08:00 10/02/20 08:05 Divalproex Sodium (Depakote Sprinkles) 375 mg HS PO 10/02/20 21:00 Current Medications Medications (Trade) Dose Ordered Sig/Sonia Route PRN Reason Start Time Stop Time Status Last Admin Dose Admin Divalproex Sodium (Depakote Sprinkles) 375 mg BIDWMEALS PO 10/02/20 08:00 10/02/20 08:05 I have reviewed the current psychotropics carefully including drug interactions. Risk benefit ratio favors no change other than as noted in my dictated progress note. Diagnosis: Problems: (1) Impulse control disorder, unspecified (2) Vascular dementia with delusions (3) Anxiety disorder, unspecified (4) Vascular dementia with depression (5) Major neurocognitive disorder (6) Dementia in Alzheimer's disease with depression (7) Dementia in Alzheimer's disease with delusions (8) Dementia of the Alzheimer's type with early onset with behavioral disturbance (9) Major depressive disorder with psychotic features PRABHAKAR MOLINA MD Oct 02, 2020 08:24
[2020-10-02 16:05] VITALS: BP 118/79
[2020-10-02] MEDS: MIRTAZAPINE 15 MG TABLET PO SCH (19:36)
[2020-10-02] MEDS: traZODone 50 MG TABLET. PO PRN (19:37)
[2020-10-02] MEDS: QUEtiapine 25 MG TABLET. PO PRN (19:37)
--- NOTE | 2020-10-02 21:17 | PDOC ---
Exam Note: Manish Note: Please also refer to the separate dictated note~for this date of service dictated separately.~Patient seen individually. Discussed the patient with Nursing staff reviewed the chart.~Reviewed interim history and current functioning. Reviewed vital signs,~Labs/ Radiology~and current medications noted below. Continue current treatment with the changes noted in the dictated addendum note Assessment: Vital Signs/I&O: Vital Signs Date Time Temp Pulse Resp B/P (MAP) Pulse Ox O2 Delivery O2 Flow Rate FiO2 10/02/20 16:05 98.2 109 20 118/79 (92) 95 10/02/20 06:20 Room Air I & O 10/01/20 10/01/20 10/02/20 15:00 23:00 07:00 Intake Total 720 ml 720 ml Balance 720 ml 720 ml Current Medications: Meds: Current Medications Medications (Trade) Dose Ordered Sig/Sonia Route PRN Reason Start Time Stop Time Status Last Admin Dose Admin Divalproex Sodium (Depakote Sprinkles) 375 mg BIDWMEALS PO 10/02/20 08:00 10/02/20 16:46 Divalproex Sodium (Depakote Sprinkles) 375 mg HS PO 10/02/20 21:00 10/02/20 19:37 I have reviewed the current psychotropics carefully including drug interactions. Risk benefit ratio favors no change other than as noted in my dictated progress note. Diagnosis: Problems: (1) Impulse control disorder, unspecified (2) Vascular dementia with delusions (3) Anxiety disorder, unspecified (4) Vascular dementia with depression (5) Major neurocognitive disorder (6) Dementia in Alzheimer's disease with depression (7) Dementia in Alzheimer's disease with delusions (8) Dementia of the Alzheimer's type with early onset with behavioral disturbance (9) Major depressive disorder with psychotic features PRABHAKAR MOLINA MD Oct 02, 2020 21:17
[2020-10-03 06:12] VITALS: BP 121/82
[2020-10-03] MEDS: FENOFIBRATE NANOCRYSTALLIZED 48 MG TABLET PO SCH (09:00)
[2020-10-03] MEDS: SERTRALINE 50 MG TABLET. PO SCH (09:00)
[2020-10-03] MEDS: FLUTICASONE 50MCG/NASAL SPRAY 16GM BOTTLE. NS SCH (09:00)
[2020-10-03] MEDS: PANTOPRAZOLE 40 MG TABLET. PO SCH (10:40)
[2020-10-03] MEDS: DIVALPROEX 125 MG CAP.SPRINK PO SCH ×3 (10:40→20:08)
[2020-10-03] MEDS: LACTOBACILLUS RHAMNOSUS GG 1 CAPSULE. PO SCH ×2 (10:40→20:08)
[2020-10-03] MEDS: METOPROLOL SUCC 24HR ER 50 MG TAB.ER.24H. PO SCH (10:41)
[2020-10-03] MEDS: CEPHALEXIN 250 MG CAPSULE PO SCH ×3 (10:41→20:08)
[2020-10-03] MEDS: MULTIVITAMIN with MINERAL TABLET. PO SCH (10:41)
--- NOTE | 2020-10-03 12:51 | TX PLAN ---
Interdisciplinary Tx Plan Admission Information Sep 17, 2020 at 10:23 Legal Status (on Admission): Voluntary DPOA/Guardian Name: Halina Gomez Contact Other Contact Name: Halina Gomez Other Contact Verified Code Status: DNR Allergies: Coded Allergies: No Known Drug Allergies (Unverified , 08/01/20) Diagnoses Primary Diagnosis: MDD with psychotic features, Major Neurocognitive D/O, Alzheimers, vascular with delusions, depression Reasons for Admission: Aggressive, Agitated, Sig. Change Sleep, Confusion/Disoriented Problem in Patient's Words: This whole catheter issue has caused him to become unsteady again and needs to be stable. Additional Admission Comments: According to the intake, pt is agitated, verbally aggressive, disoriented, insomnia, hostile and sundowning Problems Active Problems: verbally aggressive agitated physically aggressive labile Inactive Problems: Medication compliant Pt Strengths/Limitations Ability for [place]: Poor Cognitive Functioning/Ability: Fair Communication Skills/Ability: Fair Financial Resources: Good Insight/Judgement: Poor Intellectual Ability: Fair Physical Health: Poor Social Skills: Fair Stability in Family: Good Stability in School/Work: Poor Verbal Skills: Fair Discharge Criteria Discharge Criteria: No need for close observ., Adequate arrangements @DC, Improved behavior, Improved mood/thought Preliminary Discharge Plan Preliminary DC Plan: Placement Needed Special Precautions Fall Risk: Moderate Initial D/C Plan Pt will need placement upon dishcarge; request for SNF/rehab facility Identified Discharge Needs: Referrals for a higher level of care Currently Utilized Resources Currently Utilized Resources/P: Primary Care Physician Referrals Community Resources: Referrals to higher level of care. Identified Problems/Hx/Goals Objectives/Short-Term Goals Short Term Goals: Dec. Aggression, Dec. Outbursts, Medication Stabilization, Monitor Med Effects, Promote Coping Skill Short Term Goals in Patient's: N/A Interventions/Frequency Staff Interventions/Frequency&: Psychiatrist to assess pt at least 3x per week for medication management and effects. Social Work to assess pt at least 2x per week for barriers to care and finalize discharge plans with all involved parties. Nursing to assess behaviors, medication effects and completion of 15 minute checks daily. Encourage group participation in activities (if applicable) or 1:1 engagement based off activity dept goals. 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 Education: Pt graduated from High school (12th grade). Community Follow-up Primary Care Physician Possible referrals for psychiatrist while at placement Community Provider/Family Inpu: Pt is concerned about pt medications creating urinary trouble and wishes for these effects to be monitored closely. Pt needs to be able to walk before he can return home which is why pt may need to be at SNF/rehab after discharge. Treatment Plan Explained Patient/Terminal Worker had this treatment plan explained to him/her as indicated by the signature below and has been given the opportunity to ask questions and make suggestions: Date: Patient/Terminal Worker Signature: Status Update Update Pt is eating 100% of meals and sleeping on average 6.5 hours per night. Pt continues to be labile in mood and combative with staff during cares and red irection. Pt is completely incontinent and on ABX for a UT, which is to stop on Tuesday 10/03. Pt is up walking with a RW and is doing okay; despite his requests for a w/c. Pt is noted to have an increase in behaviors towards the evening hours, which is resulting in a Seroquel PRN dose. Pt is currently taking Depakote Sprinkles 375mg at 090, 1700 and at HS; as well as starting Zoloft 50mg daily. Pt would like for pt to discharge to SNF for rehab; however, the PT and OT working with pt see him at baseline and recommend either Memory Care or a LTC setting that can do intermittent therapy. SW will continue to work with pt family in making appropriate discharge plans. BRITTA PARKER Oct 03, 2020 12:51
[2020-10-03 16:12] VITALS: BP 106/69
[2020-10-03] MEDS: MIRTAZAPINE 15 MG TABLET PO SCH (20:08)
[2020-10-03] MEDS: traZODone 50 MG TABLET. PO PRN (20:09)
--- NOTE | 2020-10-03 20:56 | PDOC ---
Exam Note: Manish Note: This note is a late entry for 10/02/2020 covers elements not covered in my initial note. Subjective: The patient was reviewed in the morning of 10/02/2020 for a treatment team meeting with Tiarra Pendleton, Verna Prakash and Analisa (social human services assistants), Codi, activity therapy and Roselyn ULLOA, discussed and reviewed the chart. He slept 4-1/2 hours previous night. The patient has been combative, labile at times. He was worse after 4 p.m. Review of Systems: Ambulation impaired with walker. No CV, , pulmonary, eye, ENT system symptoms on review. Mental Status Exam: The patient is oriented to himself. Insight and judgment, recent and remote memory, attention and concentration, fund of knowledge is poor consistent with his diagnoses. No suicidal or homicidal ideation. Laboratory Data: Reviewed. Impression: Major neurocognitive disorder Alzheimer vascular with delusion, depression, behavioral disturbance. Major depressive disorder with psychotic features. Anxiety disorder unspecified. Impulse control disorder unspecified. Plan: We will go ahead and start Zoloft 50 mg a day. Maintain Seroquel p.r.n., trazodone p.r.n., Remeron, and Depakote are scheduled. Valproic acid level on 10/01 is 42 despite being slightly subtherapeutic it is adequate and we are adjusting Depakote to reach therapeutic level. Assessment: Vital Signs/I&O: Vital Signs Date Time Temp Pulse Resp B/P (MAP) Pulse Ox O2 Delivery O2 Flow Rate FiO2 10/03/20 16:12 98.6 59 18 106/69 (81) 98 10/03/20 06:12 Room Air I & O 10/02/20 10/02/20 10/03/20 15:00 23:00 07:00 Intake Total 480 ml 600 ml Balance 480 ml 600 ml Current Medications: Meds: Current Medications Medications (Trade) Dose Ordered Sig/Sonia Route PRN Reason Start Time Stop Time Status Last Admin Dose Admin Fenofibrate (Tricor) 48 mg DAILY PO 09/18/20 09:00 10/03/20 09:00 Fluticasone Propionate (Flonase) 2 spray DAILY NS 09/18/20 09:00 10/03/20 09:00 Metoprolol Succinate (Toprol Xl) 50 mg DAILY PO 2/22/21 09:00 10/03/20 10:41 Mirtazapine (Remeron) 15 mg QHS PO 09/17/20 21:00 10/03/20 20:08 Olanzapine (ZyPREXA ZYDIS) 5 mg DAILY PO 09/18/20 09:00 09/17/20 15:00 DC Pantoprazole Sodium (Protonix) 40 mg DAILY PO 09/18/20 09:00 10/03/20 10:40 Multivitamins/ Calcium (Thera-M Plus) 1 tab DAILY PO 09/18/20 09:00 10/03/20 10:41 Acetaminophen (Tylenol) 650 mg PRN Q6HRS PRN PO MILD PAIN / TEMP > 100.3'F 09/17/20 12:30 10/01/20 05:36 Multi-Ingredient Ointment (Analgesic [place]) 1 olu PRN QID PRN TP MUSCLE PAIN 09/17/20 12:30 09/23/20 21:23 Al Hydroxide/Mg Hydroxide (Mylanta Plus Xs) 15 ml PRN AFTMEALHC PRN PO DYSPEPSIA 09/17/20 12:30 Magnesium Hydroxide (Milk Of Magnesia) 2,400 mg PRN QHS PRN PO CONSTIPATION 09/17/20 12:30 Quetiapine Fumarate (SEROquel) 25 mg PRN Q2HRS PRN PO ANXIETY / AGITATION 09/17/20 14:45 10/02/20 19:37 Olanzapine (ZyPREXA) 2.5 mg TID PO 09/17/20 21:00 09/18/20 20:32 DC 09/18/20 14:07 Trazodone HCl (Desyrel) 50 mg PRN QHS PRN PO INSOMNIA, MAY REPEAT X1 09/17/20 14:45 10/03/20 20:09 Lidocaine HCl (Uro-Jet) 1 olu PRN DAILY PRN MM SEE ADMIN INSTRUCTIONS 09/18/20 17:15 Divalproex Sodium (Depakote Sprinkles) 250 mg BIDWMEALS PO 09/24/20 19:00 09/24/20 19:05 DC Divalproex Sodium (Depakote Sprinkles) 250 mg BIDWMEALS PO 09/25/20 09:00 10/01/20 21:26 DC 10/01/20 16:41 Cephalexin HCl (Keflex) 500 mg TID PO 09/26/20 21:00 10/03/20 21:00 10/03/20 20:08 Divalproex Sodium (Depakote Sprinkles) 250 mg HS PO 09/28/20 21:00 10/01/20 21:26 DC 10/01/20 19:50 Lactobacillus Rhamnosus (Culturelle) 1 cap BID PO 09/30/20 21:00 10/03/20 20:08 Divalproex Sodium (Depakote Sprinkles) 375 mg BIDWMEALS PO 10/02/20 08:00 10/03/20 17:00 Divalproex Sodium (Depakote Sprinkles) 375 mg HS PO 10/02/20 21:00 10/03/20 20:08 Sertraline HCl (Zoloft) 50 mg DAILY PO 10/03/20 09:00 10/03/20 09:00 Current Medications Medications (Trade) Dose Ordered Sig/Sonia Route PRN Reason Start Time Stop Time Status Last Admin Dose Admin Divalproex Sodium (Depakote Sprinkles) 375 mg HS PO 10/02/20 21:00 10/03/20 20:08 Sertraline HCl (Zoloft) 50 mg DAILY PO 10/03/20 09:00 10/03/20 09:00 I have reviewed the current psychotropics carefully including drug interactions. Risk benefit ratio favors no change other than as noted in my dictated progress note. Diagnosis: Problems: (1) Impulse control disorder, unspecified (2) Vascular dementia with delusions (3) Anxiety disorder, unspecified (4) Vascular dementia with depression (5) Major neurocognitive disorder (6) Dementia in Alzheimer's disease with depression (7) Dementia in Alzheimer's disease with delusions (8) Dementia of the Alzheimer's type with early onset with behavioral disturbance (9) Major depressive disorder with psychotic features PRABHAKAR MOLINA MD Oct 03, 2020 20:56
--- NOTE | 2020-10-03 20:57 | PDOC ---
Exam Note: Manish Note: Please also refer to the separate dictated note~for this date of service dictated separately.~Patient seen individually. Discussed the patient with Nursing staff reviewed the chart.~Reviewed interim history and current functioning. Reviewed vital signs,~Labs/ Radiology~and current medications noted below. Continue current treatment with the changes noted in the dictated addendum note Assessment: Vital Signs/I&O: Vital Signs Date Time Temp Pulse Resp B/P (MAP) Pulse Ox O2 Delivery O2 Flow Rate FiO2 10/03/20 16:12 98.6 59 18 106/69 (81) 98 10/03/20 06:12 Room Air I & O 10/02/20 10/02/20 10/03/20 15:00 23:00 07:00 Intake Total 480 ml 600 ml Balance 480 ml 600 ml Current Medications: Meds: Current Medications Medications (Trade) Dose Ordered Sig/Sonia Route PRN Reason Start Time Stop Time Status Last Admin Dose Admin Divalproex Sodium (Depakote Sprinkles) 375 mg HS PO 10/02/20 21:00 10/03/20 20:08 Sertraline HCl (Zoloft) 50 mg DAILY PO 10/03/20 09:00 10/03/20 09:00 I have reviewed the current psychotropics carefully including drug interactions. Risk benefit ratio favors no change other than as noted in my dictated progress note. Diagnosis: Problems: (1) Impulse control disorder, unspecified (2) Vascular dementia with delusions (3) Anxiety disorder, unspecified (4) Vascular dementia with depression (5) Major neurocognitive disorder (6) Dementia in Alzheimer's disease with depression (7) Dementia in Alzheimer's disease with delusions (8) Dementia of the Alzheimer's type with early onset with behavioral disturbance (9) Major depressive disorder with psychotic features PRABHAKAR MOLINA MD Oct 03, 2020 20:57
[2020-10-04 06:12] VITALS: BP 157/87
--- NOTE | 2020-10-04 08:06 | PDOC ---
Exam Note: Manish Note: This note is a late entry for 10/03/2020 covers elements not covered in my initial note. Subjective: The patient was seen individually in the evening of 10/03/2020 with Roselyn ULLOA, discussed and reviewed the chart. He slept 7 hours previous night. He slept in till about 10.45 a.m. He is irritable at times, confused but otherwise redirectable. Review of Systems: Ambulation impaired in wheelchair. No CV, , pulmonary, eye, ENT system symptoms on review. Mental Status Exam: The patient is oriented to himself. Insight and judgment, recent and remote memory, attention and concentration, fund of knowledge is poor consistent with his diagnoses. No suicidal or homicidal ideation. Laboratory Data: Reviewed. Impression: Major neurocognitive disorder Alzheimer vascular with delusion, depression, behavioral disturbance. Major depressive disorder with psychotic features. Anxiety disorder unspecified. Impulse control disorder unspecified. Assessment: Vital Signs/I&O: Vital Signs Date Time Temp Pulse Resp B/P (MAP) Pulse Ox O2 Delivery O2 Flow Rate FiO2 10/04/20 06:12 97.6 57 18 157/87 (110) 96 10/03/20 06:12 Room Air I & O 10/03/20 10/03/20 10/04/20 15:00 23:00 07:00 Intake Total 360 ml 720 ml Balance 360 ml 720 ml Current Medications: Meds: Current Medications Medications (Trade) Dose Ordered Sig/Sonia Route PRN Reason Start Time Stop Time Status Last Admin Dose Admin Fenofibrate (Tricor) 48 mg DAILY PO 09/18/20 09:00 10/03/20 09:00 Fluticasone Propionate (Flonase) 2 spray DAILY NS 09/18/20 09:00 10/03/20 09:00 Metoprolol Succinate (Toprol Xl) 50 mg DAILY PO 09/18/20 09:00 10/03/20 10:41 Mirtazapine (Remeron) 15 mg QHS PO 09/17/20 21:00 10/03/20 20:08 Olanzapine (ZyPREXA ZYDIS) 5 mg DAILY PO 09/18/20 09:00 09/17/20 15:00 DC Pantoprazole Sodium (Protonix) 40 mg DAILY PO 09/18/20 09:00 10/03/20 10:40 Multivitamins/ Calcium (Thera-M Plus) 1 tab DAILY PO 09/18/20 09:00 10/03/20 10:41 Acetaminophen (Tylenol) 650 mg PRN Q6HRS PRN PO MILD PAIN / TEMP > 100.3'F 09/17/20 12:30 10/01/20 05:36 Multi-Ingredient Ointment (Analgesic [place]) 1 olu PRN QID PRN TP MUSCLE PAIN 09/17/20 12:30 09/23/20 21:23 Al Hydroxide/Mg Hydroxide (Mylanta Plus Xs) 15 ml PRN AFTMEALHC PRN PO DYSPEPSIA 09/17/20 12:30 Magnesium Hydroxide (Milk Of Magnesia) 2,400 mg PRN QHS PRN PO CONSTIPATION 09/17/20 12:30 Quetiapine Fumarate (SEROquel) 25 mg PRN Q2HRS PRN PO ANXIETY / AGITATION 09/17/20 14:45 10/02/20 19:37 Olanzapine (ZyPREXA) 2.5 mg TID PO 09/17/20 21:00 09/18/20 20:32 DC 09/18/20 14:07 Trazodone HCl (Desyrel) 50 mg PRN QHS PRN PO INSOMNIA, MAY REPEAT X1 09/17/20 14:45 10/03/20 20:09 Lidocaine HCl (Uro-Jet) 1 olu PRN DAILY PRN MM SEE ADMIN INSTRUCTIONS 09/18/20 17:15 Divalproex Sodium (Depakote Sprinkles) 250 mg BIDWMEALS PO 09/24/20 19:00 09/24/20 19:05 DC Divalproex Sodium (Depakote Sprinkles) 250 mg BIDWMEALS PO 09/25/20 09:00 10/01/20 21:26 DC 10/01/20 16:41 Cephalexin HCl (Keflex) 500 mg TID PO 09/26/20 21:00 10/03/20 21:00 DC 10/03/20 20:08 Divalproex Sodium (Depakote Sprinkles) 250 mg HS PO 09/28/20 21:00 10/01/20 21:26 DC 10/01/20 19:50 Lactobacillus Rhamnosus (Culturelle) 1 cap BID PO 09/30/20 21:00 10/03/20 20:08 Divalproex Sodium (Depakote Sprinkles) 375 mg BIDWMEALS PO 10/02/20 08:00 10/03/20 17:00 Divalproex Sodium (Depakote Sprinkles) 375 mg HS PO 10/02/20 21:00 10/03/20 20:08 Sertraline HCl (Zoloft) 50 mg DAILY PO 10/03/20 09:00 10/03/20 09:00 Current Medications Medications (Trade) Dose Ordered Sig/Sonia Route PRN Reason Start Time Stop Time Status Last Admin Dose Admin Sertraline HCl (Zoloft) 50 mg DAILY PO 10/03/20 09:00 10/03/20 09:00 I have reviewed the current psychotropics carefully including drug interactions. Risk benefit ratio favors no change other than as noted in my dictated progress note. Diagnosis: Problems: (1) Impulse control disorder, unspecified (2) Vascular dementia with delusions (3) Anxiety disorder, unspecified (4) Vascular dementia with depression (5) Major neurocognitive disorder (6) Dementia in Alzheimer's disease with depression (7) Dementia in Alzheimer's disease with delusions (8) Dementia of the Alzheimer's type with early onset with behavioral disturbance (9) Major depressive disorder with psychotic features PRABHAKAR MOLINA MD Oct 04, 2020 08:06
[2020-10-04] MEDS: DIVALPROEX 125 MG CAP.SPRINK PO SCH ×3 (08:34→19:43)
[2020-10-04] MEDS: SERTRALINE 50 MG TABLET. PO SCH (08:35)
[2020-10-04] MEDS: PANTOPRAZOLE 40 MG TABLET. PO SCH (08:35)
[2020-10-04] MEDS: METOPROLOL SUCC 24HR ER 50 MG TAB.ER.24H. PO SCH (08:35)
[2020-10-04] MEDS: MULTIVITAMIN with MINERAL TABLET. PO SCH (08:35)
[2020-10-04] MEDS: LACTOBACILLUS RHAMNOSUS GG 1 CAPSULE. PO SCH ×2 (08:35→19:44)
[2020-10-04] MEDS: FLUTICASONE 50MCG/NASAL SPRAY 16GM BOTTLE. NS SCH (09:00)
[2020-10-04] MEDS: FENOFIBRATE NANOCRYSTALLIZED 48 MG TABLET PO SCH (09:13)
[2020-10-04] MEDS: MIRTAZAPINE 15 MG TABLET PO SCH (19:44)
[2020-10-04] MEDS: traZODone 50 MG TABLET. PO PRN (19:45)
[2020-10-04 22:42] VITALS: BP 114/74
--- NOTE | 2020-10-04 22:46 | PDOC ---
Exam Note: Manish Note: Please also refer to the separate dictated note~for this date of service dictated separately.~Patient seen individually. Discussed the patient with Nursing staff reviewed the chart.~Reviewed interim history and current functioning. Reviewed vital signs,~Labs/ Radiology~and current medications noted below. Continue current treatment with the changes noted in the dictated addendum note Assessment: Vital Signs/I&O: Vital Signs Date Time Temp Pulse Resp B/P (MAP) Pulse Ox O2 Delivery O2 Flow Rate FiO2 10/04/20 22:42 98.9 95 20 114/74 (87) 96 10/03/20 06:12 Room Air I & O 10/03/20 10/03/20 10/04/20 14:59 22:59 06:59 Intake Total 360 ml 720 ml Balance 360 ml 720 ml Current Medications: Meds: Current Medications Medications (Trade) Dose Ordered Sig/Sonia Route PRN Reason Start Time Stop Time Status Last Admin Dose Admin Fenofibrate (Tricor) 48 mg DAILY PO 09/18/20 09:00 10/04/20 09:13 Fluticasone Propionate (Flonase) 2 spray DAILY NS 09/18/20 09:00 10/03/20 09:00 Metoprolol Succinate (Toprol Xl) 50 mg DAILY PO 09/18/20 09:00 10/04/20 08:35 Mirtazapine (Remeron) 15 mg QHS PO 09/17/20 21:00 10/04/20 19:44 Olanzapine (ZyPREXA ZYDIS) 5 mg DAILY PO 09/18/20 09:00 09/17/20 15:00 DC Pantoprazole Sodium (Protonix) 40 mg DAILY PO 09/18/20 09:00 10/04/20 08:35 Multivitamins/ Calcium (Thera-M Plus) 1 tab DAILY PO 09/18/20 09:00 10/04/20 08:35 Acetaminophen (Tylenol) 650 mg PRN Q6HRS PRN PO MILD PAIN / TEMP > 100.3'F 09/17/20 12:30 10/01/20 05:36 Multi-Ingredient Ointment (Analgesic [place]) 1 olu PRN QID PRN TP MUSCLE PAIN 09/17/20 12:30 09/23/20 21:23 Al Hydroxide/Mg Hydroxide (Mylanta Plus Xs) 15 ml PRN AFTMEALHC PRN PO DYSPEPSIA 09/17/20 12:30 Magnesium Hydroxide (Milk Of Magnesia) 2,400 mg PRN QHS PRN PO CONSTIPATION 09/17/20 12:30 Quetiapine Fumarate (SEROquel) 25 mg PRN Q2HRS PRN PO ANXIETY / AGITATION 09/17/20 14:45 10/02/20 19:37 Olanzapine (ZyPREXA) 2.5 mg TID PO 09/17/20 21:00 09/18/20 20:32 DC 09/18/20 14:07 Trazodone HCl (Desyrel) 50 mg PRN QHS PRN PO INSOMNIA, MAY REPEAT X1 09/17/20 14:45 10/04/20 19:45 Lidocaine HCl (Uro-Jet) 1 olu PRN DAILY PRN MM SEE ADMIN INSTRUCTIONS 09/18/20 17:15 Divalproex Sodium (Depakote Sprinkles) 250 mg BIDWMEALS PO 09/24/20 19:00 09/24/20 19:05 DC Divalproex Sodium (Depakote Sprinkles) 250 mg BIDWMEALS PO 09/25/20 09:00 10/01/20 21:26 DC 10/01/20 16:41 Cephalexin HCl (Keflex) 500 mg TID PO 09/26/20 21:00 10/03/20 21:00 DC 10/03/20 20:08 Divalproex Sodium (Depakote Sprinkles) 250 mg HS PO 09/28/20 21:00 10/01/20 21:26 DC 10/01/20 19:50 Lactobacillus Rhamnosus (Culturelle) 1 cap BID PO 09/30/20 21:00 10/04/20 19:44 Divalproex Sodium (Depakote Sprinkles) 375 mg BIDWMEALS PO 10/02/20 08:00 10/04/20 18:10 Divalproex Sodium (Depakote Sprinkles) 375 mg HS PO 10/02/20 21:00 10/04/20 19:43 Sertraline HCl (Zoloft) 50 mg DAILY PO 10/03/20 09:00 10/04/20 08:35 I have reviewed the current psychotropics carefully including drug interactions. Risk benefit ratio favors no change other than as noted in my dictated progress note. Diagnosis: Problems: (1) Impulse control disorder, unspecified (2) Vascular dementia with delusions (3) Anxiety disorder, unspecified (4) Vascular dementia with depression (5) Major neurocognitive disorder (6) Dementia in Alzheimer's disease with depression (7) Dementia in Alzheimer's disease with delusions (8) Dementia of the Alzheimer's type with early onset with behavioral disturbance (9) Major depressive disorder with psychotic features PRABHAKAR MOLINA MD Oct 04, 2020 22:46
[2020-10-05 05:36] VITALS: BP 155/84
[2020-10-05 06:36] LABS: BASO % 1 % (0-3); EOS # 0.2 x10^3/uL (0.0-0.7); EOS % 4 % (0-3); HEMATOCRIT 41.8 % (39.0-53.0); LYMPH # 1.9 x10^3/uL (1.0-4.8); LYMPH % 28 % (24-48); MEAN CORPUSCULAR HEMOGLOBIN 30 pg (25-35); MEAN CORPUSCULAR HGB CONC 33 g/dL (31-37); MEAN CORPUSCULAR VOLUME 91 fL (79-100); MONO # 0.8 x10^3/uL (0.0-1.1); MONO % 12 % (0-9); NEUT # 3.6 x10^3uL (1.8-7.7); NEUT % 56 % (31-73); PLATELET COUNT 248 x10^3/uL (140-400); RED BLOOD COUNT 4.62 x10^6/uL (4.30-5.70); RED CELL DISTRIBUTION WIDTH 13.6 % (11.5-14.5); WHITE BLOOD COUNT 6.5 x10^3/uL (4.0-11.0)
[2020-10-05 06:56] LABS: ALBUMIN/GLOBULIN RATIO 0.9 (1.0-1.7); ALK PHOS 63 U/L (46-116); ALT (SGPT) 28 U/L (16-63); ANION GAP 9 (6-14); AST (SGOT) 16 U/L (15-37); BLOOD UREA NITROGEN 25 mg/dL (8-26); BUN/CREATININE RATIO 23 (6-20); CALCIUM 8.5 mg/dL (8.5-10.1); CARBON DIOXIDE 28 mmol/L (21-32); CHLORIDE 108 mmol/L (98-107); CREATININE 1.1 mg/dL (0.7-1.3); GFR 64.9; GLUCOSE 101 mg/dL (70-99); POTASSIUM 3.8 mmol/L (3.5-5.1); SODIUM 145 mmol/L (136-145); TOTAL BILIRUBIN 0.4 mg/dL (0.2-1.0); TOTAL PROTEIN 6.4 g/dL (6.4-8.2)
[2020-10-05 07:10] LABS: VAL ACID 63 mcg/mL (50-100)
--- NOTE | 2020-10-05 07:56 | PDOC ---
Exam Note: Manish Note: This note is a late entry for 10/04/2020 covers elements not covered in my initial note. Subjective: The patient was seen individually in the evening of 10/04/2020 with Jessica ULLOA, discussed and reviewed the chart. He slept 8-1/2 hours previous night. He remains confused, pleasant, cooperative, compliant. He was making somewhat suggestive, inappropriate comments to the male staff members but not able to remember this when confronted on it. Review of Systems: Ambulation impaired in wheelchair. No CV, , pulmonary, eye, ENT system symptoms on review. Mental Status Exam: The patient is oriented to himself. Insight and judgment, recent and remote memory, attention and concentration, fund of knowledge is poor consistent with his diagnoses. No suicidal or homicidal ideation. Laboratory Data: Reviewed. Impression: Major neurocognitive disorder Alzheimer vascular with delusion, depression, behavioral disturbance. Major depressive disorder with psychotic features. Anxiety disorder unspecified. Impulse control disorder unspecified. Plan: No change from initial note. Assessment: Vital Signs/I&O: Vital Signs Date Time Temp Pulse Resp B/P (MAP) Pulse Ox O2 Delivery O2 Flow Rate FiO2 10/05/20 05:36 97.8 84 18 155/84 (107) 97 Room Air I & O 10/04/20 10/04/20 10/05/20 14:59 22:59 06:59 Intake Total 720 ml 600 ml Balance 720 ml 600 ml Labs: Laboratory Tests Test 10/05/20 06:03 10/05/20 06:06 Sodium Level 145 mmol/L (136-145) Potassium Level 3.8 mmol/L (3.5-5.1) Chloride Level 108 mmol/L (98-107) H Carbon Dioxide Level 28 mmol/L (21-32) Anion Gap 9 (6-14) Blood Urea Nitrogen 25 mg/dL (8-26) Creatinine 1.1 mg/dL (0.7-1.3) Estimated GFR (Cockcroft-Gault) 64.9 BUN/Creatinine Ratio 23 (6-20) H Glucose Level 101 mg/dL (70-99) H Calcium Level 8.5 mg/dL (8.5-10.1) Total Bilirubin 0.4 mg/dL (0.2-1.0) Aspartate Amino Transferase (AST) 16 U/L (15-37) Alanine Aminotransferase (ALT) 28 U/L (16-63) Alkaline Phosphatase 63 U/L (46-116) Total Protein 6.4 g/dL (6.4-8.2) Albumin 3.0 g/dL (3.4-5.0) L Albumin/Globulin Ratio 0.9 (1.0-1.7) L Valproic Acid Level 63 mcg/mL (50-100) Valproic Acid Last Dose Date 10/04/20 Valproic Acid Last Dose Time 2100 White Blood Count 6.5 x10^3/uL (4.0-11.0) Red Blood Count 4.62 x10^6/uL (4.30-5.70) Hemoglobin 14.0 g/dL (13.0-17.5) Hematocrit 41.8 % (39.0-53.0) Mean Corpuscular Volume 91 fL (79-100) Mean Corpuscular Hemoglobin 30 pg (25-35) Mean Corpuscular Hemoglobin Concent 33 g/dL (31-37) Red Cell Distribution Width 13.6 % (11.5-14.5) Platelet Count 248 x10^3/uL (140-400) Neutrophils (%) (Auto) 56 % (31-73) Lymphocytes (%) (Auto) 28 % (24-48) Monocytes (%) (Auto) 12 % (0-9) H Eosinophils (%) (Auto) 4 % (0-3) H Basophils (%) (Auto) 1 % (0-3) Neutrophils # (Auto) 3.6 x10^3uL (1.8-7.7) Lymphocytes # (Auto) 1.9 x10^3/uL (1.0-4.8) Monocytes # (Auto) 0.8 x10^3/uL (0.0-1.1) Eosinophils # (Auto) 0.2 x10^3/uL (0.0-0.7) Basophils # (Auto) 0.0 x10^3/uL (0.0-0.2) Current Medications: Meds: Laboratory Tests Test 10/05/20 06:03 10/05/20 06:06 Sodium Level 145 mmol/L Potassium Level 3.8 mmol/L Chloride Level 108 mmol/L Carbon Dioxide Level 28 mmol/L Anion Gap 9 Blood Urea Nitrogen 25 mg/dL Creatinine 1.1 mg/dL Estimated GFR (Cockcroft-Gault) 64.9 BUN/Creatinine Ratio 23 Glucose Level 101 mg/dL Calcium Level 8.5 mg/dL Total Bilirubin 0.4 mg/dL Aspartate Amino Transf (AST/SGOT) 16 U/L Alanine Aminotransferase (ALT/SGPT) 28 U/L Alkaline Phosphatase 63 U/L Total Protein 6.4 g/dL Albumin 3.0 g/dL Albumin/Globulin Ratio 0.9 Valproic Acid (Depakene) Level 63 mcg/mL Valproic Acid Last Dose Date 10/04/20 Valproic Acid Last Dose Time 2100 White Blood Count 6.5 x10^3/uL Red Blood Count 4.62 x10^6/uL Hemoglobin 14.0 g/dL Hematocrit 41.8 % Mean Corpuscular Volume 91 fL Mean Corpuscular Hemoglobin 30 pg Mean Corpuscular Hemoglobin Concent 33 g/dL Red Cell Distribution Width 13.6 % Platelet Count 248 x10^3/uL Neutrophils (%) (Auto) 56 % Lymphocytes (%) (Auto) 28 % Monocytes (%) (Auto) 12 % Eosinophils (%) (Auto) 4 % Basophils (%) (Auto) 1 % Neutrophils # (Auto) 3.6 x10^3uL Lymphocytes # (Auto) 1.9 x10^3/uL Monocytes # (Auto) 0.8 x10^3/uL Eosinophils # (Auto) 0.2 x10^3/uL Basophils # (Auto) 0.0 x10^3/uL Current Medications Medications (Trade) Dose Ordered Sig/Sonia Route PRN Reason Start Time Stop Time Status Last Admin Dose Admin Fenofibrate (Tricor) 48 mg DAILY PO 09/18/20 09:00 10/04/20 09:13 Fluticasone Propionate (Flonase) 2 spray DAILY NS 09/18/20 09:00 10/03/20 09:00 Metoprolol Succinate (Toprol Xl) 50 mg DAILY PO 09/18/20 09:00 10/04/20 08:35 Mirtazapine (Remeron) 15 mg QHS PO 09/17/20 21:00 10/04/20 19:44 Olanzapine (ZyPREXA ZYDIS) 5 mg DAILY PO 09/18/20 09:00 09/17/20 15:00 DC Pantoprazole Sodium (Protonix) 40 mg DAILY PO 09/18/20 09:00 10/04/20 08:35 Multivitamins/ Calcium (Thera-M Plus) 1 tab DAILY PO 09/18/20 09:00 10/04/20 08:35 Acetaminophen (Tylenol) 650 mg PRN Q6HRS PRN PO MILD PAIN / TEMP > 100.3'F 09/17/20 12:30 10/01/20 05:36 Multi-Ingredient Ointment (Analgesic [place]) 1 olu PRN QID PRN TP MUSCLE PAIN 09/17/20 12:30 09/23/20 21:23 Al Hydroxide/Mg Hydroxide (Mylanta Plus Xs) 15 ml PRN AFTMEALHC PRN PO DYSPEPSIA 09/17/20 12:30 Magnesium Hydroxide (Milk Of Magnesia) 2,400 mg PRN QHS PRN PO CONSTIPATION 09/17/20 12:30 Quetiapine Fumarate (SEROquel) 25 mg PRN Q2HRS PRN PO ANXIETY / AGITATION 09/17/20 14:45 10/02/20 19:37 Olanzapine (ZyPREXA) 2.5 mg TID PO 09/17/20 21:00 09/18/20 20:32 DC 09/18/20 14:07 Trazodone HCl (Desyrel) 50 mg PRN QHS PRN PO INSOMNIA, MAY REPEAT X1 09/17/20 14:45 10/04/20 19:45 Lidocaine HCl (Uro-Jet) 1 olu PRN DAILY PRN MM SEE ADMIN INSTRUCTIONS 09/18/20 17:15 Divalproex Sodium (Depakote Sprinkles) 250 mg BIDWMEALS PO 09/24/20 19:00 09/24/20 19:05 DC Divalproex Sodium (Depakote Sprinkles) 250 mg BIDWMEALS PO 09/25/20 09:00 10/01/20 21:26 DC 10/01/20 16:41 Cephalexin HCl (Keflex) 500 mg TID PO 09/26/20 21:00 10/03/20 21:00 DC 10/03/20 20:08 Divalproex Sodium (Depakote Sprinkles) 250 mg HS PO 09/28/20 21:00 3/7/21 21:26 DC 10/01/20 19:50 Lactobacillus Rhamnosus (Culturelle) 1 cap BID PO 09/30/20 21:00 10/04/20 19:44 Divalproex Sodium (Depakote Sprinkles) 375 mg BIDWMEALS PO 10/02/20 08:00 10/04/20 18:10 Divalproex Sodium (Depakote Sprinkles) 375 mg HS PO 10/02/20 21:00 10/04/20 19:43 Sertraline HCl (Zoloft) 50 mg DAILY PO 10/03/20 09:00 10/04/20 08:35 I have reviewed the current psychotropics carefully including drug interactions. Risk benefit ratio favors no change other than as noted in my dictated progress note. Diagnosis: Problems: (1) Impulse control disorder, unspecified (2) Vascular dementia with delusions (3) Anxiety disorder, unspecified (4) Vascular dementia with depression (5) Major neurocognitive disorder (6) Dementia in Alzheimer's disease with depression (7) Dementia in Alzheimer's disease with delusions (8) Dementia of the Alzheimer's type with early onset with behavioral disturbance (9) Major depressive disorder with psychotic features PRABHAKAR MOLINA MD Oct 05, 2020 07:56
[2020-10-05] MEDS: FLUTICASONE 50MCG/NASAL SPRAY 16GM BOTTLE. NS SCH (10:58)
[2020-10-05] MEDS: FENOFIBRATE NANOCRYSTALLIZED 48 MG TABLET PO SCH (10:58)
[2020-10-05] MEDS: LACTOBACILLUS RHAMNOSUS GG 1 CAPSULE. PO SCH ×2 (10:58→19:59)
[2020-10-05] MEDS: MULTIVITAMIN with MINERAL TABLET. PO SCH (10:59)
[2020-10-05] MEDS: DIVALPROEX 125 MG CAP.SPRINK PO SCH ×3 (10:59→20:00)
[2020-10-05] MEDS: SERTRALINE 50 MG TABLET. PO SCH (10:59)
[2020-10-05] MEDS: PANTOPRAZOLE 40 MG TABLET. PO SCH (10:59)
[2020-10-05] MEDS: METOPROLOL SUCC 24HR ER 50 MG TAB.ER.24H. PO SCH (10:59)
[2020-10-05 16:19] VITALS: BP 100/69
[2020-10-05] MEDS: MIRTAZAPINE 15 MG TABLET PO SCH (20:00)
[2020-10-05] MEDS: traZODone 50 MG TABLET. PO PRN (20:41)
--- NOTE | 2020-10-05 20:57 | PDOC ---
Exam Note: Manish Note: Please also refer to the separate dictated note~for this date of service dictated separately.~Patient seen individually. Discussed the patient with Nursing staff reviewed the chart.~Reviewed interim history and current functioning. Reviewed vital signs,~Labs/ Radiology~and current medications noted below. Continue current treatment with the changes noted in the dictated addendum note Assessment: Vital Signs/I&O: Vital Signs Date Time Temp Pulse Resp B/P (MAP) Pulse Ox O2 Delivery O2 Flow Rate FiO2 10/05/20 16:19 97.8 86 20 100/69 (79) 94 10/05/20 05:36 Room Air I & O 10/04/20 10/04/20 10/05/20 15:00 23:00 07:00 Intake Total 720 ml 600 ml Balance 720 ml 600 ml Labs: Laboratory Tests Test 10/05/20 06:03 10/05/20 06:06 Sodium Level 145 mmol/L (136-145) Potassium Level 3.8 mmol/L (3.5-5.1) Chloride Level 108 mmol/L (98-107) H Carbon Dioxide Level 28 mmol/L (21-32) Anion Gap 9 (6-14) Blood Urea Nitrogen 25 mg/dL (8-26) Creatinine 1.1 mg/dL (0.7-1.3) Estimated GFR (Cockcroft-Gault) 64.9 BUN/Creatinine Ratio 23 (6-20) H Glucose Level 101 mg/dL (70-99) H Calcium Level 8.5 mg/dL (8.5-10.1) Total Bilirubin 0.4 mg/dL (0.2-1.0) Aspartate Amino Transferase (AST) 16 U/L (15-37) Alanine Aminotransferase (ALT) 28 U/L (16-63) Alkaline Phosphatase 63 U/L (46-116) Total Protein 6.4 g/dL (6.4-8.2) Albumin 3.0 g/dL (3.4-5.0) L Albumin/Globulin Ratio 0.9 (1.0-1.7) L Valproic Acid Level 63 mcg/mL (50-100) Valproic Acid Last Dose Date 10/04/20 Valproic Acid Last Dose Time 2100 White Blood Count 6.5 x10^3/uL (4.0-11.0) Red Blood Count 4.62 x10^6/uL (4.30-5.70) Hemoglobin 14.0 g/dL (13.0-17.5) Hematocrit 41.8 % (39.0-53.0) Mean Corpuscular Volume 91 fL (79-100) Mean Corpuscular Hemoglobin 30 pg (25-35) Mean Corpuscular Hemoglobin Concent 33 g/dL (31-37) Red Cell Distribution Width 13.6 % (11.5-14.5) Platelet Count 248 x10^3/uL (140-400) Neutrophils (%) (Auto) 56 % (31-73) Lymphocytes (%) (Auto) 28 % (24-48) Monocytes (%) (Auto) 12 % (0-9) H Eosinophils (%) (Auto) 4 % (0-3) H Basophils (%) (Auto) 1 % (0-3) Neutrophils # (Auto) 3.6 x10^3uL (1.8-7.7) Lymphocytes # (Auto) 1.9 x10^3/uL (1.0-4.8) Monocytes # (Auto) 0.8 x10^3/uL (0.0-1.1) Eosinophils # (Auto) 0.2 x10^3/uL (0.0-0.7) Basophils # (Auto) 0.0 x10^3/uL (0.0-0.2) Current Medications: Meds: Laboratory Tests Test 10/05/20 06:03 10/05/20 06:06 Sodium Level 145 mmol/L Potassium Level 3.8 mmol/L Chloride Level 108 mmol/L Carbon Dioxide Level 28 mmol/L Anion Gap 9 Blood Urea Nitrogen 25 mg/dL Creatinine 1.1 mg/dL Estimated GFR (Cockcroft-Gault) 64.9 BUN/Creatinine Ratio 23 Glucose Level 101 mg/dL Calcium Level 8.5 mg/dL Total Bilirubin 0.4 mg/dL Aspartate Amino Transf (AST/SGOT) 16 U/L Alanine Aminotransferase (ALT/SGPT) 28 U/L Alkaline Phosphatase 63 U/L Total Protein 6.4 g/dL Albumin 3.0 g/dL Albumin/Globulin Ratio 0.9 Valproic Acid (Depakene) Level 63 mcg/mL Valproic Acid Last Dose Date 10/04/20 Valproic Acid Last Dose Time 2100 White Blood Count 6.5 x10^3/uL Red Blood Count 4.62 x10^6/uL Hemoglobin 14.0 g/dL Hematocrit 41.8 % Mean Corpuscular Volume 91 fL Mean Corpuscular Hemoglobin 30 pg Mean Corpuscular Hemoglobin Concent 33 g/dL Red Cell Distribution Width 13.6 % Platelet Count 248 x10^3/uL Neutrophils (%) (Auto) 56 % Lymphocytes (%) (Auto) 28 % Monocytes (%) (Auto) 12 % Eosinophils (%) (Auto) 4 % Basophils (%) (Auto) 1 % Neutrophils # (Auto) 3.6 x10^3uL Lymphocytes # (Auto) 1.9 x10^3/uL Monocytes # (Auto) 0.8 x10^3/uL Eosinophils # (Auto) 0.2 x10^3/uL Basophils # (Auto) 0.0 x10^3/uL Current Medications Medications (Trade) Dose Ordered Sig/Sonia Route PRN Reason Start Time Stop Time Status Last Admin Dose Admin Fenofibrate (Tricor) 48 mg DAILY PO 09/18/20 09:00 10/05/20 10:58 Fluticasone Propionate (Flonase) 2 spray DAILY NS 09/18/20 09:00 10/05/20 10:58 Metoprolol Succinate (Toprol Xl) 50 mg DAILY PO 09/18/20 09:00 10/05/20 10:59 Mirtazapine (Remeron) 15 mg QHS PO 09/17/20 21:00 10/05/20 20:00 Olanzapine (ZyPREXA ZYDIS) 5 mg DAILY PO 09/18/20 09:00 09/17/20 15:00 DC Pantoprazole Sodium (Protonix) 40 mg DAILY PO 09/18/20 09:00 10/05/20 10:59 Multivitamins/ Calcium (Thera-M Plus) 1 tab DAILY PO 09/18/20 09:00 10/05/20 10:59 Acetaminophen (Tylenol) 650 mg PRN Q6HRS PRN PO MILD PAIN / TEMP > 100.3'F 09/17/20 12:30 10/01/20 05:36 Multi-Ingredient Ointment (Analgesic [place]) 1 olu PRN QID PRN TP MUSCLE PAIN 09/17/20 12:30 09/23/20 21:23 Al Hydroxide/Mg Hydroxide (Mylanta Plus Xs) 15 ml PRN AFTMEALHC PRN PO DYSPEPSIA 09/17/20 12:30 Magnesium Hydroxide (Milk Of Magnesia) 2,400 mg PRN QHS PRN PO CONSTIPATION 09/17/20 12:30 Quetiapine Fumarate (SEROquel) 25 mg PRN Q2HRS PRN PO ANXIETY / AGITATION 09/17/20 14:45 10/02/20 19:37 Olanzapine (ZyPREXA) 2.5 mg TID PO 09/17/20 21:00 09/18/20 20:32 DC 09/18/20 14:07 Trazodone HCl (Desyrel) 50 mg PRN QHS PRN PO INSOMNIA, MAY REPEAT X1 09/17/20 14:45 10/05/20 20:41 Lidocaine HCl (Uro-Jet) 1 olu PRN DAILY PRN MM SEE ADMIN INSTRUCTIONS 09/18/20 17:15 Divalproex Sodium (Depakote Sprinkles) 250 mg BIDWMEALS PO 09/24/20 19:00 09/24/20 19:05 DC Divalproex Sodium (Depakote Sprinkles) 250 mg BIDWMEALS PO 09/25/20 09:00 10/01/20 21:26 DC 10/01/20 16:41 Cephalexin HCl (Keflex) 500 mg TID PO 09/26/20 21:00 10/03/20 21:00 DC 10/03/20 20:08 Divalproex Sodium (Depakote Sprinkles) 250 mg HS PO 09/28/20 21:00 10/01/20 21:26 DC 10/01/20 19:50 Lactobacillus Rhamnosus (Culturelle) 1 cap BID PO 09/30/20 21:00 10/05/20 19:59 Divalproex Sodium (Depakote Sprinkles) 375 mg BIDWMEALS PO 10/02/20 08:00 10/05/20 17:26 Divalproex Sodium (Depakote Sprinkles) 375 mg HS PO 10/02/20 21:00 10/05/20 20:00 Sertraline HCl (Zoloft) 50 mg DAILY PO 10/03/20 09:00 10/05/20 10:59 I have reviewed the current psychotropics carefully including drug interactions. Risk benefit ratio favors no change other than as noted in my dictated progress note. Diagnosis: Problems: (1) Impulse control disorder, unspecified (2) Vascular dementia with delusions (3) Anxiety disorder, unspecified (4) Vascular dementia with depression (5) Major neurocognitive disorder (6) Dementia in Alzheimer's disease with depression (7) Dementia in Alzheimer's disease with delusions (8) Dementia of the Alzheimer's type with early onset with behavioral disturbance (9) Major depressive disorder with psychotic features PRABHAKAR MOLINA MD Oct 05, 2020 20:57
[2020-10-06 06:01] VITALS: BP 130/81
--- NOTE | 2020-10-06 08:21 | PDOC ---
Exam Note: Manish Note: This note is a late entry for 10/05/2020 covers elements not covered in my initial note. Subjective: The patient was seen individually in the evening of 10/05/2020 with Jessica ULLOA, discussed and reviewed the chart. He slept 7 hours previous night. He was calm, cooperative last night. Today he slept till about 2.30 p.m. and then when woken up by staff, he was extremely agitated, grabbing at the nursing staff, scratching, breaking the skin, swatting at staff. It took 2 CNAs to contain him. Later he was apologetic. Review of Systems: Ambulation impaired in wheelchair. No CV, , pulmonary, eye, ENT system symptoms on review. Mental Status Exam: The patient is oriented to himself. Insight and judgment, recent and remote memory, attention and concentration, fund of knowledge is poor consistent with his diagnoses. Laboratory Data: Reviewed. Impression: Major neurocognitive disorder Alzheimer vascular with delusion, depression, behavioral disturbance. Major depressive disorder with psychotic features. Anxiety disorder unspecified. Impulse control disorder unspecified. Plan: Continue current psychotropics. I have carefully reviewed drug interactions. We may have to check for another UTI. Make further adjustments depending on his progress. Assessment: Vital Signs/I&O: Vital Signs Date Time Temp Pulse Resp B/P (MAP) Pulse Ox O2 Delivery O2 Flow Rate FiO2 10/06/20 06:01 98.1 100 20 130/81 (97) 94 Room Air I & O 10/05/20 10/05/20 10/06/20 15:00 23:00 07:00 Intake Total 0 ml 600 ml Balance 0 ml 600 ml Current Medications: Meds: Current Medications Medications (Trade) Dose Ordered Sig/Sonia Route PRN Reason Start Time Stop Time Status Last Admin Dose Admin Fenofibrate (Tricor) 48 mg DAILY PO 09/18/20 09:00 10/05/20 10:58 Fluticasone Propionate (Flonase) 2 spray DAILY NS 09/18/20 09:00 10/05/20 10:58 Metoprolol Succinate (Toprol Xl) 50 mg DAILY PO 09/18/20 09:00 10/05/20 10:59 Mirtazapine (Remeron) 15 mg QHS PO 09/17/20 21:00 10/05/20 20:00 Olanzapine (ZyPREXA ZYDIS) 5 mg DAILY PO 09/18/20 09:00 09/17/20 15:00 DC Pantoprazole Sodium (Protonix) 40 mg DAILY PO 09/18/20 09:00 10/05/20 10:59 Multivitamins/ Calcium (Thera-M Plus) 1 tab DAILY PO 09/18/20 09:00 10/05/20 10:59 Acetaminophen (Tylenol) 650 mg PRN Q6HRS PRN PO MILD PAIN / TEMP > 100.3'F 09/17/20 12:30 10/01/20 05:36 Multi-Ingredient Ointment (Analgesic [place]) 1 olu PRN QID PRN TP MUSCLE PAIN 09/17/20 12:30 09/23/20 21:23 Al Hydroxide/Mg Hydroxide (Mylanta Plus Xs) 15 ml PRN AFTMEALHC PRN PO DYSPEPSIA 09/17/20 12:30 Magnesium Hydroxide (Milk Of Magnesia) 2,400 mg PRN QHS PRN PO CONSTIPATION 09/17/20 12:30 Quetiapine Fumarate (SEROquel) 25 mg PRN Q2HRS PRN PO ANXIETY / AGITATION 09/17/20 14:45 10/02/20 19:37 Olanzapine (ZyPREXA) 2.5 mg TID PO 09/17/20 21:00 09/18/20 20:32 DC 09/18/20 14:07 Trazodone HCl (Desyrel) 50 mg PRN QHS PRN PO INSOMNIA, MAY REPEAT X1 09/17/20 14:45 10/05/20 20:41 Lidocaine HCl (Uro-Jet) 1 olu PRN DAILY PRN MM SEE ADMIN INSTRUCTIONS 09/18/20 17:15 Divalproex Sodium (Depakote Sprinkles) 250 mg BIDWMEALS PO 09/24/20 19:00 09/24/20 19:05 DC Divalproex Sodium (Depakote Sprinkles) 250 mg BIDWMEALS PO 09/25/20 09:00 10/01/20 21:26 DC 10/01/20 16:41 Cephalexin HCl (Keflex) 500 mg TID PO 09/26/20 21:00 10/03/20 21:00 DC 3/9/21 20:08 Divalproex Sodium (Depakote Sprinkles) 250 mg HS PO 09/28/20 21:00 10/01/20 21:26 DC 10/01/20 19:50 Lactobacillus Rhamnosus (Culturelle) 1 cap BID PO 09/30/20 21:00 10/05/20 19:59 Divalproex Sodium (Depakote Sprinkles) 375 mg BIDWMEALS PO 10/02/20 08:00 10/05/20 17:26 Divalproex Sodium (Depakote Sprinkles) 375 mg HS PO 10/02/20 21:00 10/05/20 20:00 Sertraline HCl (Zoloft) 50 mg DAILY PO 10/03/20 09:00 10/05/20 10:59 I have reviewed the current psychotropics carefully including drug interactions. Risk benefit ratio favors no change other than as noted in my dictated progress note. Diagnosis: Problems: (1) Impulse control disorder, unspecified (2) Vascular dementia with delusions (3) Anxiety disorder, unspecified (4) Vascular dementia with depression (5) Major neurocognitive disorder (6) Dementia in Alzheimer's disease with depression (7) Dementia in Alzheimer's disease with delusions (8) Dementia of the Alzheimer's type with early onset with behavioral disturbance (9) Major depressive disorder with psychotic features PRABHAKAR MOLINA MD Oct 06, 2020 08:21
[2020-10-06] MEDS ORDERED: SODIUM FLUORIDE (11:16)
[2020-10-06] MEDS: FLUTICASONE 50MCG/NASAL SPRAY 16GM BOTTLE. NS SCH (11:39)
[2020-10-06] MEDS: DIVALPROEX 125 MG CAP.SPRINK PO SCH ×3 (11:40→20:58)
[2020-10-06] MEDS: METOPROLOL SUCC 24HR ER 50 MG TAB.ER.24H. PO SCH (11:40)
[2020-10-06] MEDS: SERTRALINE 50 MG TABLET. PO SCH (11:40)
[2020-10-06] MEDS: MULTIVITAMIN with MINERAL TABLET. PO SCH (11:40)
[2020-10-06] MEDS: LACTOBACILLUS RHAMNOSUS GG 1 CAPSULE. PO SCH ×2 (11:40→20:59)
[2020-10-06] MEDS: FENOFIBRATE NANOCRYSTALLIZED 48 MG TABLET PO SCH (11:40)
[2020-10-06] MEDS: PANTOPRAZOLE 40 MG TABLET. PO SCH (11:40)
[2020-10-06 15:29] VITALS: BP 113/76
[2020-10-06 18:53] LABS: BILIRUBIN,URINE NEG (NEG); CLARITY,URINE CLEAR; COLOR,URINE YELLOW; GLUCOSE,URINE NEG (NEG)
[2020-10-06 18:54] LABS: AMORPHOUS SEDIMENT,UR PRESENT /HPF; BACTERIA,URINE 0 /HPF (0-FEW); NITRITE,URINE NEG (NEG); RBC,URINE OCC /HPF (0-2); SQUAMOUS EPITHELIAL CELL,UR FEW /LPF; WBC,URINE RARE /HPF (0-4)
[2020-10-06] MEDS: MIRTAZAPINE 15 MG TABLET PO SCH (20:57)
[2020-10-06] MEDS: [UNRECOGNIZED DRUG - OTHER] PO SCH (20:57)
--- NOTE | 2020-10-06 21:02 | PDOC ---
Exam Note: Manish Note: Please also refer to the separate dictated note~for this date of service dictated separately.~Patient seen individually. Discussed the patient with Nursing staff reviewed the chart.~Reviewed interim history and current functioning. Reviewed vital signs,~Labs/ Radiology~and current medications noted below. Continue current treatment with the changes noted in the dictated addendum note Assessment: Vital Signs/I&O: Vital Signs Date Time Temp Pulse Resp B/P (MAP) Pulse Ox O2 Delivery O2 Flow Rate FiO2 10/06/20 15:29 98.1 90 18 113/76 (88) 95 Room Air I & O 10/05/20 10/05/20 10/06/20 15:00 23:00 07:00 Intake Total 0 ml 600 ml Balance 0 ml 600 ml Labs: Laboratory Tests Test 10/06/20 18:35 Urine Collection Type U cath Urine Color Yellow Urine Clarity Clear Urine pH 6.0 Urine Specific [place] 1.025 Urine Protein Trace (NEG-TRACE) Urine Glucose (UA) Neg mg/dL (NEG) Urine Ketones (Stick) Trace mg/dL (NEG) Urine Blood Neg (NEG) Urine Nitrite Neg (NEG) Urine Bilirubin Neg (NEG) Urine Urobilinogen Dipstick 1.0 mg/dL (0.2 mg/dL) Urine Leukocyte Esterase Neg (NEG) Urine RBC Occ /HPF (0-2) Urine WBC Rare /HPF (0-4) Urine Squamous Epithelial Cells Few /LPF Urine Amorphous Sediment Present /HPF Urine Bacteria 0 /HPF (0-FEW) Current Medications: Meds: Current Medications Medications (Trade) Dose Ordered Sig/Sonia Route PRN Reason Start Time Stop Time Status Last Admin Dose Admin Non-Formulary Medication (Non Formulary Item (Prevident Toothpaste)) 1 ea BID PO 10/06/20 21:00 10/06/20 20:57 Divalproex Sodium (Depakote Sprinkles) 625 mg HS PO 10/06/20 21:00 10/06/20 20:58 I have reviewed the current psychotropics carefully including drug interactions. Risk benefit ratio favors no change other than as noted in my dictated progress note. Diagnosis: Problems: (1) Impulse control disorder, unspecified (2) Vascular dementia with delusions (3) Anxiety disorder, unspecified (4) Vascular dementia with depression (5) Major neurocognitive disorder (6) Dementia in Alzheimer's disease with depression (7) Dementia in Alzheimer's disease with delusions (8) Dementia of the Alzheimer's type with early onset with behavioral disturbance (9) Major depressive disorder with psychotic features PRABHAKAR MOLINA MD Oct 06, 2020 21:02
[2020-10-07 06:08] VITALS: BP 112/79
[2020-10-07] MEDS: [UNRECOGNIZED DRUG - OTHER] PO SCH ×2 (07:39→20:24)
[2020-10-07] MEDS: FLUTICASONE 50MCG/NASAL SPRAY 16GM BOTTLE. NS SCH (07:39)
[2020-10-07] MEDS: PANTOPRAZOLE 40 MG TABLET. PO SCH (09:03)
[2020-10-07] MEDS: SERTRALINE 50 MG TABLET. PO SCH (09:03)
[2020-10-07] MEDS: LACTOBACILLUS RHAMNOSUS GG 1 CAPSULE. PO SCH ×2 (09:03→20:24)
[2020-10-07] MEDS: DIVALPROEX 125 MG CAP.SPRINK PO SCH ×3 (09:03→20:25)
[2020-10-07] MEDS: MULTIVITAMIN with MINERAL TABLET. PO SCH (09:03)
[2020-10-07] MEDS: FENOFIBRATE NANOCRYSTALLIZED 48 MG TABLET PO SCH (09:03)
[2020-10-07] MEDS: METOPROLOL SUCC 24HR ER 50 MG TAB.ER.24H. PO SCH (09:03)
[2020-10-07 15:56] VITALS: BP 134/80
[2020-10-07] MEDS: MIRTAZAPINE 15 MG TABLET PO SCH (20:24)
--- NOTE | 2020-10-07 20:52 | PDOC ---
Exam Note: Manish Note: Please also refer to the separate dictated note~for this date of service dictated separately.~Patient seen individually. Discussed the patient with Nursing staff reviewed the chart.~Reviewed interim history and current functioning. Reviewed vital signs,~Labs/ Radiology~and current medications noted below. Continue current treatment with the changes noted in the dictated addendum note Assessment: Vital Signs/I&O: Vital Signs Date Time Temp Pulse Resp B/P (MAP) Pulse Ox O2 Delivery O2 Flow Rate FiO2 10/07/20 15:56 98.8 88 17 134/80 (98) 98 Room Air I & O 10/06/20 10/06/20 10/07/20 15:00 23:00 07:00 Intake Total 220 ml 480 ml Balance 220 ml 480 ml Current Medications: Meds: Current Medications Medications (Trade) Dose Ordered Sig/Sonia Route PRN Reason Start Time Stop Time Status Last Admin Dose Admin Non-Formulary Medication (Non Formulary Item (Prevident Toothpaste)) 1 ea BID PO 10/06/20 21:00 10/07/20 20:24 Divalproex Sodium (Depakote Sprinkles) 625 mg HS PO 10/06/20 21:00 10/07/20 20:25 I have reviewed the current psychotropics carefully including drug interactions. Risk benefit ratio favors no change other than as noted in my dictated progress note. Diagnosis: Problems: (1) Impulse control disorder, unspecified (2) Vascular dementia with delusions (3) Anxiety disorder, unspecified (4) Vascular dementia with depression (5) Major neurocognitive disorder (6) Dementia in Alzheimer's disease with depression (7) Dementia in Alzheimer's disease with delusions (8) Dementia of the Alzheimer's type with early onset with behavioral disturbance (9) Major depressive disorder with psychotic features PRABHAKAR MOLINA MD Oct 07, 2020 20:52
[2020-10-08 06:15] VITALS: BP 127/87
--- NOTE | 2020-10-08 08:24 | PDOC ---
Exam Note: Manish Note: This note is a late entry for 10/06/2020 covers elements not covered in my initial note. Subjective: The patient was seen individually in the evening of 10/06/2020 with Jessica ULLOA, discussed and reviewed the chart. He slept 7-1/2 hours previous night. Previous evening he was resistive to cares, refused brief change after bowel movement. Received trazodone h.s. Refused to get out of bed till noon and then he was resistive, took 2 to 3 staff members to assist him. We will check UA straight catheter if possible to make sure UTI is not worsening some of his agitation. He did have bowel movement in his brief. He was hitting, kicking, swatting at staff. We will repeat UA to rule out UTI. Review of Systems: Ambulation impaired in wheelchair. No CV, , pulmonary, eye, ENT system symptoms on review. Mental Status Exam: The patient is oriented to himself. Insight and judgment, recent and remote memory, attention and concentration, fund of knowledge is poor consistent with his diagnoses. Laboratory Data: Reviewed. Impression: Major neurocognitive disorder Alzheimer vascular with delusion, depression, behavioral disturbance. Major depressive disorder with psychotic features. Anxiety disorder unspecified. Impulse control disorder unspecified. Plan: Continue current psychotropics. The patients valproic acid level is subtherapeutic and we will increase the Depakote Sprinkles to 37.5 mg 0900 hours, 1700 hours and 625 mg h.s. Check CBC, CMP, valproic acid level in 3 days. Adjust further as clinically indicated. Assessment: Vital Signs/I&O: Vital Signs Date Time Temp Pulse Resp B/P (MAP) Pulse Ox O2 Delivery O2 Flow Rate FiO2 10/08/20 06:15 98.1 96 16 127/87 (100) 94 10/07/20 15:56 Room Air I & O 10/07/20 10/07/20 10/08/20 15:00 23:00 07:00 Intake Total 360 ml 480 ml Balance 360 ml 480 ml Current Medications: Meds: Current Medications Medications (Trade) Dose Ordered Sig/Sonia Route PRN Reason Start Time Stop Time Status Last Admin Dose Admin Fenofibrate (Tricor) 48 mg DAILY PO 09/18/20 09:00 10/07/20 09:03 Fluticasone Propionate (Flonase) 2 spray DAILY NS 09/18/20 09:00 10/07/20 07:39 Metoprolol Succinate (Toprol Xl) 50 mg DAILY PO 09/18/20 09:00 10/07/20 09:03 Mirtazapine (Remeron) 15 mg QHS PO 09/17/20 21:00 10/07/20 20:24 Olanzapine (ZyPREXA ZYDIS) 5 mg DAILY PO 09/18/20 09:00 09/17/20 15:00 DC Pantoprazole Sodium (Protonix) 40 mg DAILY PO 09/18/20 09:00 10/07/20 09:03 Multivitamins/ Calcium (Thera-M Plus) 1 tab DAILY PO 09/18/20 09:00 10/07/20 09:03 Acetaminophen (Tylenol) 650 mg PRN Q6HRS PRN PO MILD PAIN / TEMP > 100.3'F 09/17/20 12:30 10/01/20 05:36 Multi-Ingredient Ointment (Analgesic [place]) 1 olu PRN QID PRN TP MUSCLE PAIN 09/17/20 12:30 09/23/20 21:23 Al Hydroxide/Mg Hydroxide (Mylanta Plus Xs) 15 ml PRN AFTMEALHC PRN PO DYSPEPSIA 09/17/20 12:30 Magnesium Hydroxide (Milk Of Magnesia) 2,400 mg PRN QHS PRN PO CONSTIPATION 09/17/20 12:30 Quetiapine Fumarate (SEROquel) 25 mg PRN Q2HRS PRN PO ANXIETY / AGITATION 09/17/20 14:45 10/02/20 19:37 Olanzapine (ZyPREXA) 2.5 mg TID PO 09/17/20 21:00 09/18/20 20:32 DC 09/18/20 14:07 Trazodone HCl (Desyrel) 50 mg PRN QHS PRN PO INSOMNIA, MAY REPEAT X1 09/17/20 14:45 10/05/20 20:41 Lidocaine HCl (Uro-Jet) 1 olu PRN DAILY PRN MM SEE ADMIN INSTRUCTIONS 09/18/20 17:15 Divalproex Sodium (Depakote Sprinkles) 250 mg BIDWMEALS PO 09/24/20 19:00 09/24/20 19:05 DC Divalproex Sodium (Depakote Sprinkles) 250 mg BIDWMEALS PO 09/25/20 09:00 10/01/20 21:26 DC 10/01/20 16:41 Cephalexin HCl (Keflex) 500 mg TID PO 09/26/20 21:00 10/03/20 21:00 DC 10/03/20 20:08 Divalproex Sodium (Depakote Sprinkles) 250 mg HS PO 09/28/20 21:00 10/01/20 21:26 DC 10/01/20 19:50 Lactobacillus Rhamnosus (Culturelle) 1 cap BID PO 09/30/20 21:00 10/07/20 20:24 Divalproex Sodium (Depakote Sprinkles) 375 mg BIDWMEALS PO 10/02/20 08:00 10/07/20 16:44 Divalproex Sodium (Depakote Sprinkles) 375 mg HS PO 10/02/20 21:00 10/06/20 18:01 DC 10/05/20 20:00 Sertraline HCl (Zoloft) 50 mg DAILY PO 10/03/20 09:00 10/07/20 09:03 Non-Formulary Medication (Non Formulary Item (Prevident Toothpaste)) 1 ea BID PO 10/06/20 21:00 10/07/20 20:24 Divalproex Sodium (Depakote Sprinkles) 625 mg HS PO 10/06/20 21:00 10/07/20 20:25 I have reviewed the current psychotropics carefully including drug interactions. Risk benefit ratio favors no change other than as noted in my dictated progress note. Diagnosis: Problems: (1) Impulse control disorder, unspecified (2) Vascular dementia with delusions (3) Anxiety disorder, unspecified (4) Vascular dementia with depression (5) Major neurocognitive disorder (6) Dementia in Alzheimer's disease with depression (7) Dementia in Alzheimer's disease with delusions (8) Dementia of the Alzheimer's type with early onset with behavioral disturbance (9) Major depressive disorder with psychotic features PRABHAKAR MOLINA MD Oct 08, 2020 08:24
[2020-10-08] MEDS: FENOFIBRATE NANOCRYSTALLIZED 48 MG TABLET PO SCH (08:30)
[2020-10-08] MEDS: LACTOBACILLUS RHAMNOSUS GG 1 CAPSULE. PO SCH ×2 (08:30→20:48)
[2020-10-08] MEDS: FLUTICASONE 50MCG/NASAL SPRAY 16GM BOTTLE. NS SCH (08:30)
[2020-10-08] MEDS: SERTRALINE 50 MG TABLET. PO SCH (08:30)
[2020-10-08] MEDS: MULTIVITAMIN with MINERAL TABLET. PO SCH (08:30)
[2020-10-08] MEDS: DIVALPROEX 125 MG CAP.SPRINK PO SCH ×3 (08:30→20:49)
[2020-10-08] MEDS: PANTOPRAZOLE 40 MG TABLET. PO SCH (08:30)
[2020-10-08] MEDS: METOPROLOL SUCC 24HR ER 50 MG TAB.ER.24H. PO SCH (08:30)
[2020-10-08] MEDS: [UNRECOGNIZED DRUG - OTHER] PO SCH ×2 (08:30→20:48)
--- NOTE | 2020-10-08 08:38 | PDOC ---
Exam Note: Manish Note: This note is a late entry for 10/07/2020 covers elements not covered in my initial note. Subjective: The patient was seen individually in the evening of 10/07/2020 with Juan ULLOA, discussed and reviewed the chart. He slept 6-1/2 hours previous night. He remains confused, had a good day. Even though he tries to sleep late, he does wake up when food is presented to him in the morning. He is confused especially when taking him to the bathroom. He was in the dayroom and had some brief verbal conversation. Review of Systems: Ambulation impaired in wheelchair. No CV, , pulmonary, eye, ENT system symptoms on review. Mental Status Exam: The patient is oriented to himself. Insight and judgment, recent and remote memory, attention and concentration, fund of knowledge is poor consistent with his diagnoses. Laboratory Data: Reviewed. Impression: Major neurocognitive disorder Alzheimer vascular with delusion, depression, behavioral disturbance. Major depressive disorder with psychotic features. Anxiety disorder unspecified. Impulse control disorder unspecified. Plan: Continue current psychotropics. Assessment: Vital Signs/I&O: Vital Signs Date Time Temp Pulse Resp B/P (MAP) Pulse Ox O2 Delivery O2 Flow Rate FiO2 10/08/20 08:30 96 127/87 10/08/20 06:15 98.1 16 94 10/07/20 15:56 Room Air I & O 10/07/20 10/07/20 10/08/20 15:00 23:00 07:00 Intake Total 360 ml 480 ml Balance 360 ml 480 ml Current Medications: Meds: Current Medications Medications (Trade) Dose Ordered Sig/Sonia Route PRN Reason Start Time Stop Time Status Last Admin Dose Admin Fenofibrate (Tricor) 48 mg DAILY PO 09/18/20 09:00 10/08/20 08:30 Fluticasone Propionate (Flonase) 2 spray DAILY NS 09/18/20 09:00 10/08/20 08:30 Metoprolol Succinate (Toprol Xl) 50 mg DAILY PO 09/18/20 09:00 10/08/20 08:30 Mirtazapine (Remeron) 15 mg QHS PO 09/17/20 21:00 10/07/20 20:24 Olanzapine (ZyPREXA ZYDIS) 5 mg DAILY PO 09/18/20 09:00 09/17/20 15:00 DC Pantoprazole Sodium (Protonix) 40 mg DAILY PO 09/18/20 09:00 10/08/20 08:30 Multivitamins/ Calcium (Thera-M Plus) 1 tab DAILY PO 09/18/20 09:00 10/08/20 08:30 Acetaminophen (Tylenol) 650 mg PRN Q6HRS PRN PO MILD PAIN / TEMP > 100.3'F 09/17/20 12:30 10/01/20 05:36 Multi-Ingredient Ointment (Analgesic [place]) 1 olu PRN QID PRN TP MUSCLE PAIN 09/17/20 12:30 09/23/20 21:23 Al Hydroxide/Mg Hydroxide (Mylanta Plus Xs) 15 ml PRN AFTMEALHC PRN PO DYSPEPSIA 09/17/20 12:30 Magnesium Hydroxide (Milk Of Magnesia) 2,400 mg PRN QHS PRN PO CONSTIPATION 09/17/20 12:30 Quetiapine Fumarate (SEROquel) 25 mg PRN Q2HRS PRN PO ANXIETY / AGITATION 09/17/20 14:45 10/02/20 19:37 Olanzapine (ZyPREXA) 2.5 mg TID PO 09/17/20 21:00 09/18/20 20:32 DC 09/18/20 14:07 Trazodone HCl (Desyrel) 50 mg PRN QHS PRN PO INSOMNIA, MAY REPEAT X1 09/17/20 14:45 10/05/20 20:41 Lidocaine HCl (Uro-Jet) 1 olu PRN DAILY PRN MM SEE ADMIN INSTRUCTIONS 09/18/20 17:15 Divalproex Sodium (Depakote Sprinkles) 250 mg BIDWMEALS PO 09/24/20 19:00 09/24/20 19:05 DC Divalproex Sodium (Depakote Sprinkles) 250 mg BIDWMEALS PO 09/25/20 09:00 10/01/20 21:26 DC 10/01/20 16:41 Cephalexin HCl (Keflex) 500 mg TID PO 09/26/20 21:00 10/03/20 21:00 DC 10/03/20 20:08 Divalproex Sodium (Depakote Sprinkles) 250 mg HS PO 09/28/20 21:00 10/01/20 21:26 DC 10/01/20 19:50 Lactobacillus Rhamnosus (Culturelle) 1 cap BID PO 09/30/20 21:00 10/08/20 08:30 Divalproex Sodium (Depakote Sprinkles) 375 mg BIDWMEALS PO 10/02/20 08:00 10/08/20 08:30 Divalproex Sodium (Depakote Sprinkles) 375 mg HS PO 10/02/20 21:00 10/06/20 18:01 DC 10/05/20 20:00 Sertraline HCl (Zoloft) 50 mg DAILY PO 10/03/20 09:00 10/08/20 08:30 Non-Formulary Medication (Non Formulary Item (Prevident Toothpaste)) 1 ea BID PO 10/06/20 21:00 10/08/20 08:30 Divalproex Sodium (Depakote Sprinkles) 625 mg HS PO 10/06/20 21:00 10/07/20 20:25 I have reviewed the current psychotropics carefully including drug interactions. Risk benefit ratio favors no change other than as noted in my dictated progress note. Diagnosis: Problems: (1) Impulse control disorder, unspecified (2) Vascular dementia with delusions (3) Anxiety disorder, unspecified (4) Vascular dementia with depression (5) Major neurocognitive disorder (6) Dementia in Alzheimer's disease with depression (7) Dementia in Alzheimer's disease with delusions (8) Dementia of the Alzheimer's type with early onset with behavioral disturban ce (9) Major depressive disorder with psychotic features PRABHAKAR MOLINA MD Oct 08, 2020 08:38
[2020-10-08 15:49] VITALS: BP 123/80
[2020-10-08] MEDS: MIRTAZAPINE 15 MG TABLET PO SCH (20:48)
--- NOTE | 2020-10-08 21:56 | PDOC ---
Exam Note: Manish Note: Please also refer to the separate dictated note~for this date of service dictated separately.~Patient seen individually. Discussed the patient with Nursing staff reviewed the chart.~Reviewed interim history and current functioning. Reviewed vital signs,~Labs/ Radiology~and current medications noted below. Continue current treatment with the changes noted in the dictated addendum note Assessment: Vital Signs/I&O: Vital Signs Date Time Temp Pulse Resp B/P (MAP) Pulse Ox O2 Delivery O2 Flow Rate FiO2 10/08/20 15:49 98.0 91 18 123/80 (94) 94 10/07/20 15:56 Room Air I & O 10/07/20 10/07/20 10/08/20 15:00 23:00 07:00 Intake Total 360 ml 480 ml Balance 360 ml 480 ml Current Medications: I have reviewed the current psychotropics carefully including drug interactions. Risk benefit ratio favors no change other than as noted in my dictated progress note. Diagnosis: Problems: (1) Impulse control disorder, unspecified (2) Vascular dementia with delusions (3) Anxiety disorder, unspecified (4) Vascular dementia with depression (5) Major neurocognitive disorder (6) Dementia in Alzheimer's disease with depression (7) Dementia in Alzheimer's disease with delusions (8) Dementia of the Alzheimer's type with early onset with behavioral disturbance (9) Major depressive disorder with psychotic features PRABHAKAR MOLINA MD Oct 08, 2020 21:56
[2020-10-09 06:33] VITALS: BP 125/77
[2020-10-09 07:14] LABS: BASO % 0 % (0-3); EOS # 0.2 x10^3/uL (0.0-0.7); EOS % 3 % (0-3); HEMATOCRIT 42.5 % (39.0-53.0); HEMOGLOBIN 13.9 g/dL (13.0-17.5); LYMPH % 31 % (24-48); MEAN CORPUSCULAR HEMOGLOBIN 30 pg (25-35); MEAN CORPUSCULAR HGB CONC 33 g/dL (31-37); MEAN CORPUSCULAR VOLUME 91 fL (79-100); MONO % 15 % (0-9); NEUT # 3.3 x10^3uL (1.8-7.7); NEUT % 51 % (31-73); PLATELET COUNT 214 x10^3/uL (140-400); RED BLOOD COUNT 4.68 x10^6/uL (4.30-5.70); RED CELL DISTRIBUTION WIDTH 13.8 % (11.5-14.5); WHITE BLOOD COUNT 6.5 x10^3/uL (4.0-11.0)
[2020-10-09 07:24] LABS: ALBUMIN 2.8 g/dL (3.4-5.0); ALBUMIN/GLOBULIN RATIO 0.8 (1.0-1.7); ALK PHOS 55 U/L (46-116); ALT (SGPT) 28 U/L (16-63); ANION GAP 6 (6-14); AST (SGOT) 21 U/L (15-37); BLOOD UREA NITROGEN 30 mg/dL (8-26); BUN/CREATININE RATIO 30 (6-20); CALCIUM 8.8 mg/dL (8.5-10.1); CARBON DIOXIDE 30 mmol/L (21-32); CHLORIDE 108 mmol/L (98-107); GFR 72.5; GLUCOSE 99 mg/dL (70-99); POTASSIUM 3.7 mmol/L (3.5-5.1); SODIUM 144 mmol/L (136-145); TOTAL BILIRUBIN 0.6 mg/dL (0.2-1.0); TOTAL PROTEIN 6.3 g/dL (6.4-8.2)
[2020-10-09 07:27] LABS: VAL ACID 71 mcg/mL (50-100)
--- NOTE | 2020-10-09 08:44 | PDOC ---
Exam Note: Manish Note: This note is a late entry for 10/08/2020 covers elements not covered in my initial note. Subjective: The patient was seen individually in the evening of 10/08/2020 with Juan ULLOA, discussed and reviewed the chart. He slept 5-1/4 hours previous night. The patient slept in, this morning till around lunch time and has done better after that. Review of Systems: Gait unsteady in wheelchair. No CV, , pulmonary, eye, ENT system symptoms on review. Mental Status Exam: The patient is oriented to himself. Insight and judgment, recent and remote memory, attention and concentration, fund of knowledge is poor consistent with his diagnoses. Laboratory Data: Reviewed. Impression: Major neurocognitive disorder Alzheimer vascular with delusion, depression, behavioral disturbance. Major depressive disorder with psychotic features. Anxiety disorder unspecified. Impulse control disorder unspecified. Plan: We will adjust Depakote further as clinically indicated but try and minimize the dosage. Assessment: Vital Signs/I&O: Vital Signs Date Time Temp Pulse Resp B/P (MAP) Pulse Ox O2 Delivery O2 Flow Rate FiO2 10/09/20 06:33 98.1 77 16 125/77 (93) 95 Room Air I & O 10/08/20 10/08/20 10/09/20 15:00 23:00 07:00 Intake Total 360 ml 480 ml Balance 360 ml 480 ml Labs: Laboratory Tests Test 10/09/20 06:50 White Blood Count 6.5 x10^3/uL (4.0-11.0) Red Blood Count 4.68 x10^6/uL (4.30-5.70) Hemoglobin 13.9 g/dL (13.0-17.5) Hematocrit 42.5 % (39.0-53.0) Mean Corpuscular Volume 91 fL (79-100) Mean Corpuscular Hemoglobin 30 pg (25-35) Mean Corpuscular Hemoglobin Concent 33 g/dL (31-37) Red Cell Distribution Width 13.8 % (11.5-14.5) Platelet Count 214 x10^3/uL (140-400) Neutrophils (%) (Auto) 51 % (31-73) Lymphocytes (%) (Auto) 31 % (24-48) Monocytes (%) (Auto) 15 % (0-9) H Eosinophils (%) (Auto) 3 % (0-3) Basophils (%) (Auto) 0 % (0-3) Neutrophils # (Auto) 3.3 x10^3uL (1.8-7.7) Lymphocytes # (Auto) 2.0 x10^3/uL (1.0-4.8) Monocytes # (Auto) 1.0 x10^3/uL (0.0-1.1) Eosinophils # (Auto) 0.2 x10^3/uL (0.0-0.7) Basophils # (Auto) 0.0 x10^3/uL (0.0-0.2) Sodium Level 144 mmol/L (136-145) Potassium Level 3.7 mmol/L (3.5-5.1) Chloride Level 108 mmol/L (98-107) H Carbon Dioxide Level 30 mmol/L (21-32) Anion Gap 6 (6-14) Blood Urea Nitrogen 30 mg/dL (8-26) H Creatinine 1.0 mg/dL (0.7-1.3) Estimated GFR (Cockcroft-Gault) 72.5 BUN/Creatinine Ratio 30 (6-20) H Glucose Level 99 mg/dL (70-99) Calcium Level 8.8 mg/dL (8.5-10.1) Total Bilirubin 0.6 mg/dL (0.2-1.0) Aspartate Amino Transferase (AST) 21 U/L (15-37) Alanine Aminotransferase (ALT) 28 U/L (16-63) Alkaline Phosphatase 55 U/L (46-116) Total Protein 6.3 g/dL (6.4-8.2) L Albumin 2.8 g/dL (3.4-5.0) L Albumin/Globulin Ratio 0.8 (1.0-1.7) L Valproic Acid Level 71 mcg/mL (50-100) Valproic Acid Last Dose Date 10/08/20 Valproic Acid Last Dose Time 2100 Current Medications: Meds: Laboratory Tests Test 10/09/20 06:50 White Blood Count 6.5 x10^3/uL Red Blood Count 4.68 x10^6/uL Hemoglobin 13.9 g/dL Hematocrit 42.5 % Mean Corpuscular Volume 91 fL Mean Corpuscular Hemoglobin 30 pg Mean Corpuscular Hemoglobin Concent 33 g/dL Red Cell Distribution Width 13.8 % Platelet Count 214 x10^3/uL Neutrophils (%) (Auto) 51 % Lymphocytes (%) (Auto) 31 % Monocytes (%) (Auto) 15 % Eosinophils (%) (Auto) 3 % Basophils (%) (Auto) 0 % Neutrophils # (Auto) 3.3 x10^3uL Lymphocytes # (Auto) 2.0 x10^3/uL Monocytes # (Auto) 1.0 x10^3/uL Eosinophils # (Auto) 0.2 x10^3/uL Basophils # (Auto) 0.0 x10^3/uL Sodium Level 144 mmol/L Potassium Level 3.7 mmol/L Chloride Level 108 mmol/L Carbon Dioxide Level 30 mmol/L Anion Gap 6 Blood Urea Nitrogen 30 mg/dL Creatinine 1.0 mg/dL Estimated GFR (Cockcroft-Gault) 72.5 BUN/Creatinine Ratio 30 Glucose Level 99 mg/dL Calcium Level 8.8 mg/dL Total Bilirubin 0.6 mg/dL Aspartate Amino Transf (AST/SGOT) 21 U/L Alanine Aminotransferase (ALT/SGPT) 28 U/L Alkaline Phosphatase 55 U/L Total Protein 6.3 g/dL Albumin 2.8 g/dL Albumin/Globulin Ratio 0.8 Valproic Acid (Depakene) Level 71 mcg/mL Valproic Acid Last Dose Date 10/08/20 Valproic Acid Last Dose Time 2100 Current Medications Medications (Trade) Dose Ordered Sig/Sonia Route PRN Reason Start Time Stop Time Status Last Admin Dose Admin Fenofibrate (Tricor) 48 mg DAILY PO 09/18/20 09:00 10/08/20 08:30 Fluticasone Propionate (Flonase) 2 spray DAILY NS 09/18/20 09:00 10/08/20 08:30 Metoprolol Succinate (Toprol Xl) 50 mg DAILY PO 09/18/20 09:00 10/08/20 08:30 Mirtazapine (Remeron) 15 mg QHS PO 09/17/20 21:00 10/08/20 20:48 Olanzapine (ZyPREXA ZYDIS) 5 mg DAILY PO 09/18/20 09:00 09/17/20 15:00 DC Pantoprazole Sodium (Protonix) 40 mg DAILY PO 09/18/20 09:00 10/08/20 08:30 Multivitamins/ Calcium (Thera-M Plus) 1 tab DAILY PO 09/18/20 09:00 10/08/20 08:30 Acetaminophen (Tylenol) 650 mg PRN Q6HRS PRN PO MILD PAIN / TEMP > 100.3'F 09/17/20 12:30 10/01/20 05:36 Multi-Ingredient Ointment (Analgesic [place]) 1 olu PRN QID PRN TP MUSCLE PAIN 09/17/20 12:30 09/23/20 21:23 Al Hydroxide/Mg Hydroxide (Mylanta Plus Xs) 15 ml PRN AFTMEALHC PRN PO DYSPEPSIA 09/17/20 12:30 Magnesium Hydroxide (Milk Of Magnesia) 2,400 mg PRN QHS PRN PO CONSTIPATION 09/17/20 12:30 Quetiapine Fumarate (SEROquel) 25 mg PRN Q2HRS PRN PO ANXIETY / AGITATION 09/17/20 14:45 10/02/20 19:37 Olanzapine (ZyPREXA) 2.5 mg TID PO 09/17/20 21:00 09/18/20 20:32 DC 09/18/20 14:07 Trazodone HCl (Desyrel) 50 mg PRN QHS PRN PO INSOMNIA, MAY REPEAT X1 09/17/20 14:45 10/05/20 20:41 Lidocaine HCl (Uro-Jet) 1 olu PRN DAILY PRN MM SEE ADMIN INSTRUCTIONS 09/18/20 17:15 Divalproex Sodium (Depakote Sprinkles) 250 mg BIDWMEALS PO 09/24/20 19:00 09/24/20 19:05 DC Divalproex Sodium (Depakote Sprinkles) 250 mg BIDWMEALS PO 09/25/20 09:00 10/01/20 21:26 DC 10/01/20 16:41 Cephalexin HCl (Keflex) 500 mg TID PO 09/26/20 21:00 10/03/20 21:00 DC 10/03/20 20:08 Divalproex Sodium (Depakote Sprinkles) 250 mg HS PO 09/28/20 21:00 10/01/20 21:26 DC 10/01/20 19:50 Lactobacillus Rhamnosus (Culturelle) 1 cap BID PO 09/30/20 21:00 10/08/20 20:48 Divalproex Sodium (Depakote Sprinkles) 375 mg BIDWMEALS PO 10/02/20 08:00 10/08/20 16:53 Divalproex Sodium (Depakote Sprinkles) 375 mg HS PO 10/02/20 21:00 10/06/20 18:01 DC 10/05/20 20:00 Sertraline HCl (Zoloft) 50 mg DAILY PO 10/03/20 09:00 10/08/20 08:30 Non-Formulary Medication (Non Formulary Item (Prevident Toothpaste)) 1 ea BID PO 10/06/20 21:00 10/08/20 20:48 Divalproex Sodium (Depakote Sprinkles) 625 mg HS PO 10/06/20 21:00 10/08/20 20:49 I have reviewed the current psychotropics carefully including drug interactions. Risk benefit ratio favors no change other than as noted in my dictated progress note. Diagnosis: Problems: (1) Impulse control disorder, unspecified (2) Vascular dementia with delusions (3) Anxiety disorder, unspecified (4) Vascular dementia with depression (5) Major neurocognitive disorder (6) Dementia in Alzheimer's disease with depression (7) Dementia in Alzheimer's disease with delusions (8) Dementia of the Alzheimer's type with early onset with behavioral disturbance (9) Major depressive disorder with psychotic features PRABHAKAR MOLINA MD Oct 09, 2020 08:44
[2020-10-09] MEDS: FLUTICASONE 50MCG/NASAL SPRAY 16GM BOTTLE. NS SCH (09:00)
[2020-10-09] MEDS: [UNRECOGNIZED DRUG - OTHER] PO SCH ×2 (09:00→20:49)
[2020-10-09] MEDS: PANTOPRAZOLE 40 MG TABLET. PO SCH (09:55)
[2020-10-09] MEDS: DIVALPROEX 125 MG CAP.SPRINK PO SCH ×3 (09:55→20:49)
[2020-10-09] MEDS: MULTIVITAMIN with MINERAL TABLET. PO SCH (09:56)
[2020-10-09] MEDS: METOPROLOL SUCC 24HR ER 50 MG TAB.ER.24H. PO SCH (09:56)
[2020-10-09] MEDS: SERTRALINE 50 MG TABLET. PO SCH (09:56)
[2020-10-09] MEDS: LACTOBACILLUS RHAMNOSUS GG 1 CAPSULE. PO SCH ×2 (09:56→20:49)
[2020-10-09] MEDS: FENOFIBRATE NANOCRYSTALLIZED 48 MG TABLET PO SCH (10:01)
[2020-10-09 15:28] VITALS: BP 105/70
--- NOTE | 2020-10-09 16:32 | TX PLAN ---
Interdisciplinary Tx Plan Admission Information Sep 17, 2020 at 10:23 Legal Status (on Admission): Voluntary DPOA/Guardian Name: Halina Gomez Contact Other Contact Name: Halina Gomez Other Contact Verified Code Status: DNR Allergies: Coded Allergies: No Known Drug Allergies (Unverified , 08/01/20) Diagnoses Primary Diagnosis: MDD with psychotic features, Major Neurocognitive D/O, Alzheimers, vascular with delusions, depression Reasons for Admission: Aggressive, Agitated, Sig. Change Sleep, Confusion/Disoriented Problem in Patient's Words: This whole catheter issue has caused him to become unsteady again and needs to be stable. Additional Admission Comments: According to the intake, pt is agitated, verbally aggressive, disoriented, insomnia, hostile and sundowning Problems Active Problems: verbally aggressive agitated physically aggressive labile Inactive Problems: Medication compliant Pt Strengths/Limitations Ability for [place]: Poor Cognitive Functioning/Ability: Fair Communication Skills/Ability: Fair Financial Resources: Good Insight/Judgement: Poor Intellectual Ability: Fair Physical Health: Poor Social Skills: Fair Stability in Family: Good Stability in School/Work: Poor Verbal Skills: Fair Discharge Criteria Discharge Criteria: No need for close observ., Adequate arrangements @DC, Improved behavior, Improved mood/thought Preliminary Discharge Plan Preliminary DC Plan: Placement Needed Special Precautions Fall Risk: Moderate Initial D/C Plan Pt will need placement upon dishcarge; request for SNF/rehab facility Identified Discharge Needs: Referrals for a higher level of care Currently Utilized Resources Currently Utilized Resources/P: Primary Care Physician Referrals Community Resources: Referrals to higher level of care. Identified Problems/Hx/Goals Objectives/Short-Term Goals Short Term Goals: Dec. Aggression, Dec. Outbursts, Medication Stabilization, Monitor Med Effects, Promote Coping Skill Short Term Goals in Patient's: N/A Interventions/Frequency Staff Interventions/Frequency&: Psychiatrist to assess pt at least 3x per week for medication management and effects. Social Work to assess pt at least 2x per week for barriers to care and finalize discharge plans with all involved parties. Nursing to assess behaviors, medication effects and completion of 15 minute checks daily. Encourage group participation in activities (if applicable) or 1:1 engagement based off activity dept goals. 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 Education: Pt graduated from High school (12th grade). Community Follow-up Primary Care Physician Possible referrals for psychiatrist while at placement Community Provider/Family Inpu: Pt is concerned about pt medications creating urinary trouble and wishes for these effects to be monitored closely. Pt needs to be able to walk before he can return home which is why pt may need to be at SNF/rehab after discharge. 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 Pt has periods of calm and compliance with medications; however, does appear to have more combativeness/aggression (e.g. kicking, hitting, grabbing) during times of cares. Pt family still requests that pt attend rehab if possible; however, with pt behaviors and the concern for pt poor potential to physically get better, the team is recommending a memory care placement. SW will continue to work with pt on being able to have pt placed in a different capacity. Pt VPA is therapeutic at 69; but will have his Zoloft increased to 75mg daily. BRITTA PARKER Oct 09, 2020 16:32
[2020-10-09] MEDS: MIRTAZAPINE 15 MG TABLET PO SCH (20:49)
--- NOTE | 2020-10-09 22:01 | PDOC ---
Exam Note: Manish Note: Please also refer to the separate dictated note~for this date of service dictated separately.~Patient seen individually. Discussed the patient with Nursing staff reviewed the chart.~Reviewed interim history and current functioning. Reviewed vital signs,~Labs/ Radiology~and current medications noted below. Continue current treatment with the changes noted in the dictated addendum note Assessment: Vital Signs/I&O: Vital Signs Date Time Temp Pulse Resp B/P (MAP) Pulse Ox O2 Delivery O2 Flow Rate FiO2 10/09/20 15:28 97.9 83 18 105/70 (82) 96 10/09/20 06:33 Room Air I & O 10/08/20 10/08/20 10/09/20 15:00 23:00 07:00 Intake Total 360 ml 480 ml Balance 360 ml 480 ml Labs: Laboratory Tests Test 10/09/20 06:50 White Blood Count 6.5 x10^3/uL (4.0-11.0) Red Blood Count 4.68 x10^6/uL (4.30-5.70) Hemoglobin 13.9 g/dL (13.0-17.5) Hematocrit 42.5 % (39.0-53.0) Mean Corpuscular Volume 91 fL (79-100) Mean Corpuscular Hemoglobin 30 pg (25-35) Mean Corpuscular Hemoglobin Concent 33 g/dL (31-37) Red Cell Distribution Width 13.8 % (11.5-14.5) Platelet Count 214 x10^3/uL (140-400) Neutrophils (%) (Auto) 51 % (31-73) Lymphocytes (%) (Auto) 31 % (24-48) Monocytes (%) (Auto) 15 % (0-9) H Eosinophils (%) (Auto) 3 % (0-3) Basophils (%) (Auto) 0 % (0-3) Neutrophils # (Auto) 3.3 x10^3uL (1.8-7.7) Lymphocytes # (Auto) 2.0 x10^3/uL (1.0-4.8) Monocytes # (Auto) 1.0 x10^3/uL (0.0-1.1) Eosinophils # (Auto) 0.2 x10^3/uL (0.0-0.7) Basophils # (Auto) 0.0 x10^3/uL (0.0-0.2) Sodium Level 144 mmol/L (136-145) Potassium Level 3.7 mmol/L (3.5-5.1) Chloride Level 108 mmol/L (98-107) H Carbon Dioxide Level 30 mmol/L (21-32) Anion Gap 6 (6-14) Blood Urea Nitrogen 30 mg/dL (8-26) H Creatinine 1.0 mg/dL (0.7-1.3) Estimated GFR (Cockcroft-Gault) 72.5 BUN/Creatinine Ratio 30 (6-20) H Glucose Level 99 mg/dL (70-99) Calcium Level 8.8 mg/dL (8.5-10.1) Total Bilirubin 0.6 mg/dL (0.2-1.0) Aspartate Amino Transferase (AST) 21 U/L (15-37) Alanine Aminotransferase (ALT) 28 U/L (16-63) Alkaline Phosphatase 55 U/L (46-116) Total Protein 6.3 g/dL (6.4-8.2) L Albumin 2.8 g/dL (3.4-5.0) L Albumin/Globulin Ratio 0.8 (1.0-1.7) L Valproic Acid Level 71 mcg/mL (50-100) Valproic Acid Last Dose Date 10/08/20 Valproic Acid Last Dose Time 2100 Current Medications: Meds: Laboratory Tests Test 10/09/20 06:50 White Blood Count 6.5 x10^3/uL Red Blood Count 4.68 x10^6/uL Hemoglobin 13.9 g/dL Hematocrit 42.5 % Mean Corpuscular Volume 91 fL Mean Corpuscular Hemoglobin 30 pg Mean Corpuscular Hemoglobin Concent 33 g/dL Red Cell Distribution Width 13.8 % Platelet Count 214 x10^3/uL Neutrophils (%) (Auto) 51 % Lymphocytes (%) (Auto) 31 % Monocytes (%) (Auto) 15 % Eosinophils (%) (Auto) 3 % Basophils (%) (Auto) 0 % Neutrophils # (Auto) 3.3 x10^3uL Lymphocytes # (Auto) 2.0 x10^3/uL Monocytes # (Auto) 1.0 x10^3/uL Eosinophils # (Auto) 0.2 x10^3/uL Basophils # (Auto) 0.0 x10^3/uL Sodium Level 144 mmol/L Potassium Level 3.7 mmol/L Chloride Level 108 mmol/L Carbon Dioxide Level 30 mmol/L Anion Gap 6 Blood Urea Nitrogen 30 mg/dL Creatinine 1.0 mg/dL Estimated GFR (Cockcroft-Gault) 72.5 BUN/Creatinine Ratio 30 Glucose Level 99 mg/dL Calcium Level 8.8 mg/dL Total Bilirubin 0.6 mg/dL Aspartate Amino Transf (AST/SGOT) 21 U/L Alanine Aminotransferase (ALT/SGPT) 28 U/L Alkaline Phosphatase 55 U/L Total Protein 6.3 g/dL Albumin 2.8 g/dL Albumin/Globulin Ratio 0.8 Valproic Acid (Depakene) Level 71 mcg/mL Valproic Acid Last Dose Date 10/08/20 Valproic Acid Last Dose Time 2100 Current Medications Medications (Trade) Dose Ordered Sig/Sonia Route PRN Reason Start Time Stop Time Status Last Admin Dose Admin Fenofibrate (Tricor) 48 mg DAILY PO 09/18/20 09:00 10/09/20 10:01 Fluticasone Propionate (Flonase) 2 spray DAILY NS 09/18/20 09:00 10/09/20 09:00 Metoprolol Succinate (Toprol Xl) 50 mg DAILY PO 09/18/20 09:00 10/09/20 09:56 Mirtazapine (Remeron) 15 mg QHS PO 09/17/20 21:00 10/09/20 20:49 Olanzapine (ZyPREXA ZYDIS) 5 mg DAILY PO 09/18/20 09:00 09/17/20 15:00 DC Pantoprazole Sodium (Protonix) 40 mg DAILY PO 09/18/20 09:00 10/09/20 09:55 Multivitamins/ Calcium (Thera-M Plus) 1 tab DAILY PO 09/18/20 09:00 10/09/20 09:56 Acetaminophen (Tylenol) 650 mg PRN Q6HRS PRN PO MILD PAIN / TEMP > 100.3'F 09/17/20 12:30 10/01/20 05:36 Multi-Ingredient Ointment (Analgesic [place]) 1 olu PRN QID PRN TP MUSCLE PAIN 09/17/20 12:30 09/23/20 21:23 Al Hydroxide/Mg Hydroxide (Mylanta Plus Xs) 15 ml PRN AFTMEALHC PRN PO DYSPEPSIA 09/17/20 12:30 Magnesium Hydroxide (Milk Of Magnesia) 2,400 mg PRN QHS PRN PO CONSTIPATION 09/17/20 12:30 Quetiapine Fumarate (SEROquel) 25 mg PRN Q2HRS PRN PO ANXIETY / AGITATION 09/17/20 14:45 10/02/20 19:37 Olanzapine (ZyPREXA) 2.5 mg TID PO 09/17/20 21:00 09/18/20 20:32 DC 09/18/20 14:07 Trazodone HCl (Desyrel) 50 mg PRN QHS PRN PO INSOMNIA, MAY REPEAT X1 09/17/20 14:45 10/05/20 20:41 Lidocaine HCl (Uro-Jet) 1 olu PRN DAILY PRN MM SEE ADMIN INSTRUCTIONS 09/18/20 17:15 Divalproex Sodium (Depakote Sprinkles) 250 mg BIDWMEALS PO 09/24/20 19:00 09/24/20 19:05 DC Divalproex Sodium (Depakote Sprinkles) 250 mg BIDWMEALS PO 09/25/20 09:00 10/01/20 21:26 DC 10/01/20 16:41 Cephalexin HCl (Keflex) 500 mg TID PO 09/26/20 21:00 10/03/20 21:00 DC 10/03/20 20:08 Divalproex Sodium (Depakote Sprinkles) 250 mg HS PO 09/28/20 21:00 10/01/20 21:26 DC 10/01/20 19:50 Lactobacillus Rhamnosus (Culturelle) 1 cap BID PO 09/30/20 21:00 10/09/20 20:49 Divalproex Sodium (Depakote Sprinkles) 375 mg BIDWMEALS PO 10/02/20 08:00 10/09/20 15:53 Divalproex Sodium (Depakote Sprinkles) 375 mg HS PO 10/02/20 21:00 10/06/20 18:01 DC 10/05/20 20:00 Sertraline HCl (Zoloft) 50 mg DAILY PO 10/03/20 09:00 10/09/20 11:51 DC 10/09/20 09:56 Non-Formulary Medication (Non Formulary Item (Prevident Toothpaste)) 1 ea BID PO 10/06/20 21:00 10/09/20 09:00 Divalproex Sodium (Depakote Sprinkles) 625 mg HS PO 10/06/20 21:00 10/09/20 20:49 Sertraline HCl (Zoloft) 75 mg DAILY PO 10/10/20 09:00 I have reviewed the current psychotropics carefully including drug interactions. Risk benefit ratio favors no change other than as noted in my dictated progress note. Diagnosis: Problems: (1) Impulse control disorder, unspecified (2) Vascular dementia with delusions (3) Anxiety disorder, unspecified (4) Vascular dementia with depression (5) Major neurocognitive disorder (6) Dementia in Alzheimer's disease with depression (7) Dementia in Alzheimer's disease with delusions (8) Dementia of the Alzheimer's type with early onset with behavioral disturbance (9) Major depressive disorder with psychotic features PRABHAKAR MOLINA MD Oct 09, 2020 22:01
[2020-10-10 05:54] VITALS: BP 137/70
[2020-10-10] MEDS: [UNRECOGNIZED DRUG - OTHER] PO SCH ×2 (09:00→20:23)
--- NOTE | 2020-10-10 10:30 | PDOC ---
Exam Note: Manish Note: This note is a late entry for 10/09/2020 covers elements not covered in my initial note. Subjective: The patient was reviewed in the morning of 10/09/2020 for a treatment team meeting with Tiarra Pendleton, Verna Prakash and Analisa (social work manager), [facility] and Syl ULLOA, discussed and reviewed the chart. He was also seen individually in the evening. He slept 7 hours previous night. Per [facility], the patient is not meeting his goals for groups, unable to participate in groups. Family are looking for skilled rehab though physical therapy is not sure whether the patient would qualify. He maintains his confusion, intermittent yelling more so in the evening with cares. Valproic acid level is therapeutic at 71. Review of Systems: Ambulation impaired in wheelchair. No CV, , pulmonary, eye, ENT system symptoms on review. Reliability poor. Mental Status Exam: The patient is oriented to himself. Insight and judgment, recent and remote memory, attention and concentration, fund of knowledge is poor consistent with his diagnoses. Laboratory Data: Reviewed. Impression: Major neurocognitive disorder Alzheimer vascular with delusion, depression, behavioral disturbance. Major depressive disorder with psychotic features. Anxiety disorder unspecified. Impulse control disorder unspecified. Plan: We will increase the patients Zoloft from 50 mg a day to 75 mg a day. Maintain Depakote at current dosage together with trazodone, Seroquel p.r.n. Rest unchanged for now. Assessment: Vital Signs/I&O: Vital Signs Date Time Temp Pulse Resp B/P (MAP) Pulse Ox O2 Delivery O2 Flow Rate FiO2 10/10/20 05:54 96.4 64 16 137/70 (92) 97 Room Air I & O 10/09/20 10/09/20 10/10/20 14:59 22:59 06:59 Intake Total 720 ml 440 ml Balance 720 ml 440 ml Current Medications: Meds: Current Medications Medications (Trade) Dose Ordered Sig/Sonia Route PRN Reason Start Time Stop Time Status Last Admin Dose Admin Fenofibrate (Tricor) 48 mg DAILY PO 09/18/20 09:00 10/09/20 10:01 Fluticasone Propionate (Flonase) 2 spray DAILY NS 09/18/20 09:00 10/09/20 09:00 Metoprolol Succinate (Toprol Xl) 50 mg DAILY PO 09/18/20 09:00 10/09/20 09:56 Mirtazapine (Remeron) 15 mg QHS PO 09/17/20 21:00 10/09/20 20:49 Olanzapine (ZyPREXA ZYDIS) 5 mg DAILY PO 09/18/20 09:00 09/17/20 15:00 DC Pantoprazole Sodium (Protonix) 40 mg DAILY PO 09/18/20 09:00 10/09/20 09:55 Multivitamins/ Calcium (Thera-M Plus) 1 tab DAILY PO 09/18/20 09:00 10/09/20 09:56 Acetaminophen (Tylenol) 650 mg PRN Q6HRS PRN PO MILD PAIN / TEMP > 100.3'F 09/17/20 12:30 10/01/20 05:36 Multi-Ingredient Ointment (Analgesic [place]) 1 olu PRN QID PRN TP MUSCLE PAIN 09/17/20 12:30 09/23/20 21:23 Al Hydroxide/Mg Hydroxide (Mylanta Plus Xs) 15 ml PRN AFTMEALHC PRN PO DYSPEPSIA 09/17/20 12:30 Magnesium Hydroxide (Milk Of Magnesia) 2,400 mg PRN QHS PRN PO CONSTIPATION 09/17/20 12:30 Quetiapine Fumarate (SEROquel) 25 mg PRN Q2HRS PRN PO ANXIETY / AGITATION 09/17/20 14:45 10/02/20 19:37 Olanzapine (ZyPREXA) 2.5 mg TID PO 09/17/20 21:00 09/18/20 20:32 DC 09/18/20 14:07 Trazodone HCl (Desyrel) 50 mg PRN QHS PRN PO INSOMNIA, MAY REPEAT X1 09/17/20 14:45 10/05/20 20:41 Lidocaine HCl (Uro-Jet) 1 olu PRN DAILY PRN MM SEE ADMIN INSTRUCTIONS 09/18/20 17:15 Divalproex Sodium (Depakote Sprinkles) 250 mg BIDWMEALS PO 09/24/20 19:00 09/24/20 19:05 DC Divalproex Sodium (Depakote Sprinkles) 250 mg BIDWMEALS PO 09/25/20 09:00 10/01/20 21:26 DC 10/01/20 16:41 Cephalexin HCl (Keflex) 500 mg TID PO 09/26/20 21:00 10/03/20 21:00 DC 10/03/20 20:08 Divalproex Sodium (Depakote Sprinkles) 250 mg HS PO 09/28/20 21:00 10/01/20 21:26 DC 10/01/20 19:50 Lactobacillus Rhamnosus (Culturelle) 1 cap BID PO 09/30/20 21:00 10/09/20 20:49 Divalproex Sodium (Depakote Sprinkles) 375 mg BIDWMEALS PO 10/02/20 08:00 10/09/20 15:53 Divalproex Sodium (Depakote Sprinkles) 375 mg HS PO 10/02/20 21:00 10/06/20 18:01 DC 10/05/20 20:00 Sertraline HCl (Zoloft) 50 mg DAILY PO 10/03/20 09:00 10/09/20 11:51 DC 10/09/20 09:56 Non-Formulary Medication (Non Formulary Item (Prevident Toothpaste)) 1 ea BID PO 10/06/20 21:00 10/09/20 09:00 Divalproex Sodium (Depakote Sprinkles) 625 mg HS PO 10/06/20 21:00 10/09/20 20:49 Sertraline HCl (Zoloft) 75 mg DAILY PO 10/10/20 09:00 I have reviewed the current psychotropics carefully including drug interactions. Risk benefit ratio favors no change other than as noted in my dictated progress note. Diagnosis: Problems: (1) Impulse control disorder, unspecified (2) Vascular dementia with delusions (3) Anxiety disorder, unspecified (4) Vascular dementia with depression (5) Major neurocognitive disorder (6) Dementia in Alzheimer's disease with depression (7) Dementia in Alzheimer's disease with delusions (8) Dementia of the Alzheimer's type with early onset with behavioral disturbance (9) Major depressive disorder with psychotic features PRABHAKAR MOLINA MD Oct 10, 2020 10:30
[2020-10-10] MEDS: FENOFIBRATE NANOCRYSTALLIZED 48 MG TABLET PO SCH (12:00)
[2020-10-10] MEDS: METOPROLOL SUCC 24HR ER 50 MG TAB.ER.24H. PO SCH (12:01)
[2020-10-10] MEDS: LACTOBACILLUS RHAMNOSUS GG 1 CAPSULE. PO SCH ×2 (12:01→20:22)
[2020-10-10] MEDS: DIVALPROEX 125 MG CAP.SPRINK PO SCH ×3 (12:01→20:22)
[2020-10-10] MEDS: PANTOPRAZOLE 40 MG TABLET. PO SCH (12:01)
[2020-10-10] MEDS: MULTIVITAMIN with MINERAL TABLET. PO SCH (12:01)
[2020-10-10] MEDS: SERTRALINE 50 MG TABLET. PO SCH (12:02)
[2020-10-10] MEDS: FLUTICASONE 50MCG/NASAL SPRAY 16GM BOTTLE. NS SCH (12:09)
[2020-10-10 16:18] VITALS: BP 118/76
[2020-10-10] MEDS: MIRTAZAPINE 15 MG TABLET PO SCH (20:22)
--- NOTE | 2020-10-10 21:54 | PDOC ---
Exam Note: Manish Note: Please also refer to the separate dictated note~for this date of service dictated separately.~Patient seen individually. Discussed the patient with Nursing staff reviewed the chart.~Reviewed interim history and current functioning. Reviewed vital signs,~Labs/ Radiology~and current medications noted below. Continue current treatment with the changes noted in the dictated addendum note Assessment: Vital Signs/I&O: Vital Signs Date Time Temp Pulse Resp B/P (MAP) Pulse Ox O2 Delivery O2 Flow Rate FiO2 10/10/20 16:18 97.9 79 16 118/76 (90) 98 10/10/20 05:54 Room Air I & O 10/09/20 10/09/20 10/10/20 15:00 23:00 07:00 Intake Total 720 ml 440 ml Balance 720 ml 440 ml Current Medications: Meds: Current Medications Medications (Trade) Dose Ordered Sig/Sonia Route PRN Reason Start Time Stop Time Status Last Admin Dose Admin Sertraline HCl (Zoloft) 75 mg DAILY PO 10/10/20 09:00 10/10/20 12:02 I have reviewed the current psychotropics carefully including drug interactions. Risk benefit ratio favors no change other than as noted in my dictated progress note. Diagnosis: Problems: (1) Impulse control disorder, unspecified (2) Vascular dementia with delusions (3) Anxiety disorder, unspecified (4) Vascular dementia with depression (5) Major neurocognitive disorder (6) Dementia in Alzheimer's disease with depression (7) Dementia in Alzheimer's disease with delusions (8) Dementia of the Alzheimer's type with early onset with behavioral disturbance (9) Major depressive disorder with psychotic features PRABHAKAR MOLINA MD Oct 10, 2020 21:54
[2020-10-11 05:54] VITALS: BP 114/71
--- NOTE | 2020-10-11 08:59 | PDOC ---
Exam Note: Manish Note: This note is a late entry for 10/10/2020 covers elements not covered in my initial note. Subjective: The patient was seen individually in the evening of 10/10/2020 with Radha ULLOA, discussed and reviewed the chart. He slept 6-1/4 hours previous night. The patient yells during cares and brief changes. He was aggressive previous night with showers but better during the day today. Review of Systems: Ambulation impaired in wheelchair. No CV, , pulmonary, eye, ENT system symptoms on review. Reliability poor. Mental Status Exam: The patient is oriented to himself. Insight and judgment, recent and remote memory, attention and concentration, fund of knowledge is poor consistent with his diagnoses. Laboratory Data: Reviewed. Impression: Major neurocognitive disorder Alzheimer vascular with delusion, depression, behavioral disturbance. Major depressive disorder with psychotic features. Anxiety disorder unspecified. Impulse control disorder unspecified. Plan: No change from initial note. Assessment: Vital Signs/I&O: Vital Signs Date Time Temp Pulse Resp B/P (MAP) Pulse Ox O2 Delivery O2 Flow Rate FiO2 10/11/20 05:54 97.5 81 20 114/71 (85) 94 10/10/20 05:54 Room Air I & O 10/10/20 10/10/20 10/11/20 15:00 23:00 07:00 Intake Total 240 ml 600 ml Balance 240 ml 600 ml Current Medications: Meds: Current Medications Medications (Trade) Dose Ordered Sig/Sonia Route PRN Reason Start Time Stop Time Status Last Admin Dose Admin Sertraline HCl (Zoloft) 75 mg DAILY PO 10/10/20 09:00 10/10/20 12:02 I have reviewed the current psychotropics carefully including drug interactions. Risk benefit ratio favors no change other than as noted in my dictated progress note. Diagnosis: Problems: (1) Impulse control disorder, unspecified (2) Vascular dementia with delusions (3) Anxiety disorder, unspecified (4) Vascular dementia with depression (5) Major neurocognitive disorder (6) Dementia in Alzheimer's disease with depression (7) Dementia in Alzheimer's disease with delusions (8) Dementia of the Alzheimer's type with early onset with behavioral disturbance (9) Major depressive disorder with psychotic features PRABHAKAR MOLINA MD Oct 11, 2020 08:59
[2020-10-11] MEDS: PANTOPRAZOLE 40 MG TABLET. PO SCH (12:05)
[2020-10-11] MEDS: METOPROLOL SUCC 24HR ER 50 MG TAB.ER.24H. PO SCH (12:06)
[2020-10-11] MEDS: LACTOBACILLUS RHAMNOSUS GG 1 CAPSULE. PO SCH ×2 (12:07→20:15)
[2020-10-11] MEDS: SERTRALINE 50 MG TABLET. PO SCH (12:07)
[2020-10-11] MEDS: DIVALPROEX 125 MG CAP.SPRINK PO SCH ×3 (12:07→20:15)
[2020-10-11] MEDS: MULTIVITAMIN with MINERAL TABLET. PO SCH (12:07)
[2020-10-11] MEDS: FLUTICASONE 50MCG/NASAL SPRAY 16GM BOTTLE. NS SCH (12:08)
[2020-10-11] MEDS: FENOFIBRATE NANOCRYSTALLIZED 48 MG TABLET PO SCH (12:08)
[2020-10-11 15:54] VITALS: BP 118/78
[2020-10-11] MEDS: [UNRECOGNIZED DRUG - OTHER] PO SCH ×2 (19:16→20:16)
[2020-10-11] MEDS: MIRTAZAPINE 15 MG TABLET PO SCH (20:16)
--- NOTE | 2020-10-11 22:07 | PDOC ---
Exam Note: Manish Note: Please also refer to the separate dictated note~for this date of service dictated separately.~Patient seen individually. Discussed the patient with Nursing staff reviewed the chart.~Reviewed interim history and current functioning. Reviewed vital signs,~Labs/ Radiology~and current medications noted below. Continue current treatment with the changes noted in the dictated addendum note Assessment: Vital Signs/I&O: Vital Signs Date Time Temp Pulse Resp B/P (MAP) Pulse Ox O2 Delivery O2 Flow Rate FiO2 10/11/20 15:54 98.4 82 20 118/78 (91) 95 Room Air I & O 10/10/20 10/10/20 10/11/20 15:00 23:00 07:00 Intake Total 240 ml 600 ml Balance 240 ml 600 ml Current Medications: Meds: Current Medications Medications (Trade) Dose Ordered Sig/Sonia Route PRN Reason Start Time Stop Time Status Last Admin Dose Admin Fenofibrate (Tricor) 48 mg DAILY PO 09/18/20 09:00 10/11/20 12:08 Fluticasone Propionate (Flonase) 2 spray DAILY NS 09/18/20 09:00 10/11/20 12:08 Metoprolol Succinate (Toprol Xl) 50 mg DAILY PO 09/18/20 09:00 10/11/20 12:06 Mirtazapine (Remeron) 15 mg QHS PO 09/17/20 21:00 10/11/20 20:16 Olanzapine (ZyPREXA ZYDIS) 5 mg DAILY PO 09/18/20 09:00 09/17/20 15:00 DC Pantoprazole Sodium (Protonix) 40 mg DAILY PO 09/18/20 09:00 10/11/20 12:05 Multivitamins/ Calcium (Thera-M Plus) 1 tab DAILY PO 09/18/20 09:00 10/11/20 12:07 Acetaminophen (Tylenol) 650 mg PRN Q6HRS PRN PO MILD PAIN / TEMP > 100.3'F 09/17/20 12:30 10/01/20 05:36 Multi-Ingredient Ointment (Analgesic [place]) 1 olu PRN QID PRN TP MUSCLE PAIN 09/17/20 12:30 09/23/20 21:23 Al Hydroxide/Mg Hydroxide (Mylanta Plus Xs) 15 ml PRN AFTMEALHC PRN PO DYSPEPSIA 09/17/20 12:30 Magnesium Hydroxide (Milk Of Magnesia) 2,400 mg PRN QHS PRN PO CONSTIPATION 09/17/20 12:30 Quetiapine Fumarate (SEROquel) 25 mg PRN Q2HRS PRN PO ANXIETY / AGITATION 09/17/20 14:45 10/02/20 19:37 Olanzapine (ZyPREXA) 2.5 mg TID PO 09/17/20 21:00 09/18/20 20:32 DC 09/18/20 14:07 Trazodone HCl (Desyrel) 50 mg PRN QHS PRN PO INSOMNIA, MAY REPEAT X1 09/17/20 14:45 10/05/20 20:41 Lidocaine HCl (Uro-Jet) 1 olu PRN DAILY PRN MM SEE ADMIN INSTRUCTIONS 09/18/20 17:15 Divalproex Sodium (Depakote Sprinkles) 250 mg BIDWMEALS PO 09/24/20 19:00 09/24/20 19:05 DC Divalproex Sodium (Depakote Sprinkles) 250 mg BIDWMEALS PO 09/25/20 09:00 10/01/20 21:26 DC 10/01/20 16:41 Cephalexin HCl (Keflex) 500 mg TID PO 09/26/20 21:00 10/03/20 21:00 DC 10/03/20 20:08 Divalproex Sodium (Depakote Sprinkles) 250 mg HS PO 09/28/20 21:00 10/01/20 21:26 DC 10/01/20 19:50 Lactobacillus Rhamnosus (Culturelle) 1 cap BID PO 09/30/20 21:00 10/11/20 20:15 Divalproex Sodium (Depakote Sprinkles) 375 mg BIDWMEALS PO 10/02/20 08:00 10/11/20 17:20 Divalproex Sodium (Depakote Sprinkles) 375 mg HS PO 10/02/20 21:00 10/06/20 18:01 DC 10/05/20 20:00 Sertraline HCl (Zoloft) 50 mg DAILY PO 10/03/20 09:00 10/09/20 11:51 DC 10/09/20 09:56 Non-Formulary Medication (Non Formulary Item (Prevident Toothpaste)) 1 ea BID PO 10/06/20 21:00 10/10/20 20:23 Divalproex Sodium (Depakote Sprinkles) 625 mg HS PO 10/06/20 21:00 10/11/20 20:15 Sertraline HCl (Zoloft) 75 mg DAILY PO 10/10/20 09:00 10/11/20 12:07 I have reviewed the current psychotropics carefully including drug interactions. Risk benefit ratio favors no change other than as noted in my dictated progress note. Diagnosis: Problems: (1) Impulse control disorder, unspecified (2) Vascular dementia with delusions (3) Anxiety disorder, unspecified (4) Vascular dementia with depression (5) Major neurocognitive disorder (6) Dementia in Alzheimer's disease with depression (7) Dementia in Alzheimer's disease with delusions (8) Dementia of the Alzheimer's type with early onset with behavioral disturbance (9) Major depressive disorder with psychotic features PRABHAKAR MOLINA MD Oct 11, 2020 22:06
[2020-10-12 05:33] VITALS: BP 134/85
--- NOTE | 2020-10-12 08:28 | PDOC ---
Exam Note: Manish Note: This note is a late entry for 10/11/2020 covers elements not covered in my initial note. Subjective: The patient was seen individually in the evening of 10/11/2020 with Karthik ULLOA, discussed and reviewed the chart. He slept 6-1/2 hours previous night. The patient remains confused. Often making statements dont kill me. He slept till lunch, irritable if he is woken any earlier. He has done reasonably well after that. He is very appreciative of my visit as I met with him in the evening, repeatedly thanking me for coming to visit him. Review of Systems: Ambulation impaired in wheelchair. No CV, , pulmonary, eye, ENT system symptoms on review. Mental Status Exam: The patient is oriented to himself. He is somewhat repetitive in his speech but gets distracted. Insight and judgment, recent and remote memory, attention and concentration, fund of knowledge is poor consistent with his diagnoses. Laboratory Data: Reviewed. Impression: Major neurocognitive disorder Alzheimer vascular with delusion, depression, behavioral disturbance. Major depressive disorder with psychotic features. Anxiety disorder unspecified. Impulse control disorder unspecified. Plan: No change from initial note. We are trying to avoid any atypical antipsychotics since he had significant urinary retention in the past with this and he and his wants to avoid them. Valproic acid level is therapeutic at 71. Assessment: Vital Signs/I&O: Vital Signs Date Time Temp Pulse Resp B/P (MAP) Pulse Ox O2 Delivery O2 Flow Rate FiO2 10/12/20 05:33 98.2 82 16 134/85 (101) 96 10/11/20 15:54 Room Air I & O 10/11/20 10/11/20 10/12/20 15:00 23:00 07:00 Intake Total 360 ml 320 ml Balance 360 ml 320 ml Current Medications: Meds: Current Medications Medications (Trade) Dose Ordered Sig/Sonia Route PRN Reason Start Time Stop Time Status Last Admin Dose Admin Fenofibrate (Tricor) 48 mg DAILY PO 09/18/20 09:00 10/11/20 12:08 Fluticasone Propionate (Flonase) 2 spray DAILY NS 09/18/20 09:00 10/11/20 12:08 Metoprolol Succinate (Toprol Xl) 50 mg DAILY PO 09/18/20 09:00 10/11/20 12:06 Mirtazapine (Remeron) 15 mg QHS PO 09/17/20 21:00 10/11/20 20:16 Olanzapine (ZyPREXA ZYDIS) 5 mg DAILY PO 09/18/20 09:00 09/17/20 15:00 DC Pantoprazole Sodium (Protonix) 40 mg DAILY PO 09/18/20 09:00 10/11/20 12:05 Multivitamins/ Calcium (Thera-M Plus) 1 tab DAILY PO 09/18/20 09:00 10/11/20 12:07 Acetaminophen (Tylenol) 650 mg PRN Q6HRS PRN PO MILD PAIN / TEMP > 100.3'F 09/17/20 12:30 10/01/20 05:36 Multi-Ingredient Ointment (Analgesic [place]) 1 olu PRN QID PRN TP MUSCLE PAIN 09/17/20 12:30 09/23/20 21:23 Al Hydroxide/Mg Hydroxide (Mylanta Plus Xs) 15 ml PRN AFTMEALHC PRN PO DYSPEPSIA 09/17/20 12:30 Magnesium Hydroxide (Milk Of Magnesia) 2,400 mg PRN QHS PRN PO CONSTIPATION 09/17/20 12:30 Quetiapine Fumarate (SEROquel) 25 mg PRN Q2HRS PRN PO ANXIETY / AGITATION 09/17/20 14:45 10/02/20 19:37 Olanzapine (ZyPREXA) 2.5 mg TID PO 09/17/20 21:00 09/18/20 20:32 DC 09/18/20 14:07 Trazodone HCl (Desyrel) 50 mg PRN QHS PRN PO INSOMNIA, MAY REPEAT X1 09/17/20 14:45 10/05/20 20:41 Lidocaine HCl (Uro-Jet) 1 olu PRN DAILY PRN MM SEE ADMIN INSTRUCTIONS 09/18/20 17:15 Divalproex Sodium (Depakote Sprinkles) 250 mg BIDWMEALS PO 09/24/20 19:00 09/24/20 19:05 DC Divalproex Sodium (Depakote Sprinkles) 250 mg BIDWMEALS PO 09/25/20 09:00 10/01/20 21:26 DC 10/01/20 16:41 Cephalexin HCl (Keflex) 500 mg TID PO 09/26/20 21:00 10/03/20 21:00 DC 10/03/20 20:08 Divalproex Sodium (Depakote Sprinkles) 250 mg HS PO 09/28/20 21:00 10/01/20 21:26 DC 10/01/20 19:50 Lactobacillus Rhamnosus (Culturelle) 1 cap BID PO 09/30/20 21:00 10/11/20 20:15 Divalproex Sodium (Depakote Sprinkles) 375 mg BIDWMEALS PO 10/02/20 08:00 10/11/20 17:20 Divalproex Sodium (Depakote Sprinkles) 375 mg HS PO 10/02/20 21:00 10/06/20 18:01 DC 10/05/20 20:00 Sertraline HCl (Zoloft) 50 mg DAILY PO 10/03/20 09:00 10/09/20 11:51 DC 10/09/20 09:56 Non-Formulary Medication (Non Formulary Item (Prevident Toothpaste)) 1 ea BID PO 10/06/20 21:00 10/10/20 20:23 Divalproex Sodium (Depakote Sprinkles) 625 mg HS PO 10/06/20 21:00 10/11/20 20:15 Sertraline HCl (Zoloft) 75 mg DAILY PO 10/10/20 09:00 10/11/20 12:07 I have reviewed the current psychotropics carefully including drug interactions. Risk benefit ratio favors no change other than as noted in my dictated progress note. Diagnosis: Problems: (1) Impulse control disorder, unspecified (2) Vascular dementia with delusions (3) Anxiety disorder, unspecified (4) Vascular dementia with depression (5) Major neurocognitive disorder (6) Dementia in Alzheimer's disease with depression (7) Dementia in Alzheimer's disease with delusions (8) Dementia of the Alzheimer's type with early onset with behavioral disturbance (9) Major depressive disorder with psychotic features PRABHAKAR MOLINA MD Oct 12, 2020 08:28
[2020-10-12] MEDS: [UNRECOGNIZED DRUG - OTHER] PO SCH ×2 (12:30→20:01)
[2020-10-12] MEDS: SERTRALINE 50 MG TABLET. PO SCH (13:28)
[2020-10-12] MEDS: DIVALPROEX 125 MG CAP.SPRINK PO SCH ×3 (13:28→20:00)
[2020-10-12] MEDS: LACTOBACILLUS RHAMNOSUS GG 1 CAPSULE. PO SCH ×2 (13:28→20:00)
[2020-10-12] MEDS: FENOFIBRATE NANOCRYSTALLIZED 48 MG TABLET PO SCH (13:29)
[2020-10-12] MEDS: PANTOPRAZOLE 40 MG TABLET. PO SCH (13:29)
[2020-10-12] MEDS: MULTIVITAMIN with MINERAL TABLET. PO SCH (13:29)
[2020-10-12] MEDS: METOPROLOL SUCC 24HR ER 50 MG TAB.ER.24H. PO SCH (13:29)
[2020-10-12] MEDS: FLUTICASONE 50MCG/NASAL SPRAY 16GM BOTTLE. NS SCH (13:30)
[2020-10-12 16:04] VITALS: BP 114/78
[2020-10-12] MEDS: MIRTAZAPINE 15 MG TABLET PO SCH (20:00)
--- NOTE | 2020-10-12 21:28 | PDOC ---
Exam Note: Manish Note: Please also refer to the separate dictated note~for this date of service dictated separately.~Patient seen individually. Discussed the patient with Nursing staff reviewed the chart.~Reviewed interim history and current functioning. Reviewed vital signs,~Labs/ Radiology~and current medications noted below. Continue current treatment with the changes noted in the dictated addendum note Assessment: Vital Signs/I&O: Vital Signs Date Time Temp Pulse Resp B/P (MAP) Pulse Ox O2 Delivery O2 Flow Rate FiO2 10/12/20 16:04 98.6 69 16 114/78 (90) 97 Room Air I & O 10/11/20 10/11/20 10/12/20 15:00 23:00 07:00 Intake Total 360 ml 320 ml Balance 360 ml 320 ml Current Medications: Meds: Current Medications Medications (Trade) Dose Ordered Sig/Sonia Route PRN Reason Start Time Stop Time Status Last Admin Dose Admin Fenofibrate (Tricor) 48 mg DAILY PO 09/18/20 09:00 10/12/20 13:29 Fluticasone Propionate (Flonase) 2 spray DAILY NS 09/18/20 09:00 10/12/20 13:30 Metoprolol Succinate (Toprol Xl) 50 mg DAILY PO 09/18/20 09:00 10/12/20 13:29 Mirtazapine (Remeron) 15 mg QHS PO 09/17/20 21:00 10/12/20 20:00 Olanzapine (ZyPREXA ZYDIS) 5 mg DAILY PO 09/18/20 09:00 09/17/20 15:00 DC Pantoprazole Sodium (Protonix) 40 mg DAILY PO 09/18/20 09:00 10/12/20 13:29 Multivitamins/ Calcium (Thera-M Plus) 1 tab DAILY PO 09/18/20 09:00 10/12/20 13:29 Acetaminophen (Tylenol) 650 mg PRN Q6HRS PRN PO MILD PAIN / TEMP > 100.3'F 09/17/20 12:30 10/01/20 05:36 Multi-Ingredient Ointment (Analgesic [place]) 1 olu PRN QID PRN TP MUSCLE PAIN 09/17/20 12:30 09/23/20 21:23 Al Hydroxide/Mg Hydroxide (Mylanta Plus Xs) 15 ml PRN AFTMEALHC PRN PO DYSPEPSIA 09/17/20 12:30 Magnesium Hydroxide (Milk Of Magnesia) 2,400 mg PRN QHS PRN PO CONSTIPATION 09/17/20 12:30 Quetiapine Fumarate (SEROquel) 25 mg PRN Q2HRS PRN PO ANXIETY / AGITATION 09/17/20 14:45 10/02/20 19:37 Olanzapine (ZyPREXA) 2.5 mg TID PO 09/17/20 21:00 09/18/20 20:32 DC 09/18/20 14:07 Trazodone HCl (Desyrel) 50 mg PRN QHS PRN PO INSOMNIA, MAY REPEAT X1 09/17/20 14:45 10/05/20 20:41 Lidocaine HCl (Uro-Jet) 1 olu PRN DAILY PRN MM SEE ADMIN INSTRUCTIONS 09/18/20 17:15 Divalproex Sodium (Depakote Sprinkles) 250 mg BIDWMEALS PO 09/24/20 19:00 09/24/20 19:05 DC Divalproex Sodium (Depakote Sprinkles) 250 mg BIDWMEALS PO 09/25/20 09:00 10/01/20 21:26 DC 10/01/20 16:41 Cephalexin HCl (Keflex) 500 mg TID PO 09/26/20 21:00 10/03/20 21:00 DC 10/03/20 20:08 Divalproex Sodium (Depakote Sprinkles) 250 mg HS PO 09/28/20 21:00 10/01/20 21:26 DC 10/01/20 19:50 Lactobacillus Rhamnosus (Culturelle) 1 cap BID PO 09/30/20 21:00 10/12/20 20:00 Divalproex Sodium (Depakote Sprinkles) 375 mg BIDWMEALS PO 10/02/20 08:00 10/12/20 17:14 Divalproex Sodium (Depakote Sprinkles) 375 mg HS PO 10/02/20 21:00 10/06/20 18:01 DC 10/05/20 20:00 Sertraline HCl (Zoloft) 50 mg DAILY PO 10/03/20 09:00 10/09/20 11:51 DC 10/09/20 09:56 Non-Formulary Medication (Non Formulary Item (Prevident Toothpaste)) 1 ea BID PO 10/06/20 21:00 10/10/20 20:23 Divalproex Sodium (Depakote Sprinkles) 625 mg HS PO 10/06/20 21:00 10/12/20 20:00 Sertraline HCl (Zoloft) 75 mg DAILY PO 10/10/20 09:00 10/12/20 13:28 I have reviewed the current psychotropics carefully including drug interactions. Risk benefit ratio favors no change other than as noted in my dictated progress note. Diagnosis: Problems: (1) Impulse control disorder, unspecified (2) Vascular dementia with delusions (3) Anxiety disorder, unspecified (4) Vascular dementia with depression (5) Major neurocognitive disorder (6) Dementia in Alzheimer's disease with depression (7) Dementia in Alzheimer's disease with delusions (8) Dementia of the Alzheimer's type with early onset with behavioral disturbance (9) Major depressive disorder with psychotic features PRABHAKAR MOLINA MD Oct 12, 2020 21:28
[2020-10-13 05:55] VITALS: BP 128/83
[2020-10-13] MEDS: LACTOBACILLUS RHAMNOSUS GG 1 CAPSULE. PO SCH ×2 (08:50→20:03)
[2020-10-13] MEDS: DIVALPROEX 125 MG CAP.SPRINK PO SCH ×4 (08:50→20:03)
[2020-10-13] MEDS: MULTIVITAMIN with MINERAL TABLET. PO SCH (08:50)
[2020-10-13] MEDS: PANTOPRAZOLE 40 MG TABLET. PO SCH (08:51)
[2020-10-13] MEDS: SERTRALINE 50 MG TABLET. PO SCH (08:51)
[2020-10-13] MEDS: METOPROLOL SUCC 24HR ER 50 MG TAB.ER.24H. PO SCH (08:52)
[2020-10-13] MEDS: QUEtiapine 25 MG TABLET. PO PRN (08:56)
[2020-10-13] MEDS: FENOFIBRATE NANOCRYSTALLIZED 48 MG TABLET PO SCH (08:57)
[2020-10-13] MEDS: FLUTICASONE 50MCG/NASAL SPRAY 16GM BOTTLE. NS SCH (08:57)
[2020-10-13] MEDS: [UNRECOGNIZED DRUG - OTHER] PO SCH ×2 (08:58→20:04)
--- NOTE | 2020-10-13 09:14 | PDOC ---
Exam Note: Manish Note: This note is a late entry for 10/12/2020 covers elements not covered in my initial note. Subjective: The patient was seen individually in the evening of 10/12/2020 with Karthik ULLOA, discussed and reviewed the chart. He slept 6-1/4 hours previous night. The patient was combative previous night. He slept in till noon but very pleasant, interactive, as I met with him, thankful that I was talking to him. Review of Systems: Ambulation impaired in wheelchair. No CV, , pulmonary, eye, ENT system symptoms on review. Mental Status Exam: The patient is oriented to himself. Insight and judgment, recent and remote memory, attention and concentration, fund of knowledge is poor consistent with his diagnoses. Laboratory Data: Reviewed. Impression: Major neurocognitive disorder Alzheimer vascular with delusion, depression, behavioral disturbance. Major depressive disorder with psychotic features. Anxiety disorder unspecified. Impulse control disorder unspecified. Plan: No change from initial note. Assessment: Vital Signs/I&O: Vital Signs Date Time Temp Pulse Resp B/P (MAP) Pulse Ox O2 Delivery O2 Flow Rate FiO2 10/13/20 08:52 85 128/83 10/13/20 05:55 98.5 16 92 10/12/20 16:04 Room Air I & O 10/12/20 10/12/20 10/13/20 15:00 23:00 07:00 Intake Total 200 ml 240 ml Balance 200 ml 240 ml Current Medications: Meds: Current Medications Medications (Trade) Dose Ordered Sig/Sonia Route PRN Reason Start Time Stop Time Status Last Admin Dose Admin Fenofibrate (Tricor) 48 mg DAILY PO 09/18/20 09:00 10/13/20 08:57 Fluticasone Propionate (Flonase) 2 spray DAILY NS 09/18/20 09:00 10/13/20 08:57 Metoprolol Succinate (Toprol Xl) 50 mg DAILY PO 09/18/20 09:00 10/13/20 08:52 Mirtazapine (Remeron) 15 mg QHS PO 09/17/20 21:00 10/12/20 20:00 Olanzapine (ZyPREXA ZYDIS) 5 mg DAILY PO 09/18/20 09:00 09/17/20 15:00 DC Pantoprazole Sodium (Protonix) 40 mg DAILY PO 09/18/20 09:00 10/13/20 08:51 Multivitamins/ Calcium (Thera-M Plus) 1 tab DAILY PO 09/18/20 09:00 10/13/20 08:50 Acetaminophen (Tylenol) 650 mg PRN Q6HRS PRN PO MILD PAIN / TEMP > 100.3'F 09/17/20 12:30 10/01/20 05:36 Multi-Ingredient Ointment (Analgesic [place]) 1 olu PRN QID PRN TP MUSCLE PAIN 09/17/20 12:30 09/23/20 21:23 Al Hydroxide/Mg Hydroxide (Mylanta Plus Xs) 15 ml PRN AFTMEALHC PRN PO DYSPEPSIA 09/17/20 12:30 Magnesium Hydroxide (Milk Of Magnesia) 2,400 mg PRN QHS PRN PO CONSTIPATION 09/17/20 12:30 Quetiapine Fumarate (SEROquel) 25 mg PRN Q2HRS PRN PO ANXIETY / AGITATION 09/17/20 14:45 10/13/20 08:56 Olanzapine (ZyPREXA) 2.5 mg TID PO 09/17/20 21:00 09/18/20 20:32 DC 09/18/20 14:07 Trazodone HCl (Desyrel) 50 mg PRN QHS PRN PO INSOMNIA, MAY REPEAT X1 09/17/20 14:45 10/05/20 20:41 Lidocaine HCl (Uro-Jet) 1 lou PRN DAILY PRN MM SEE ADMIN INSTRUCTIONS 09/18/20 17:15 Divalproex Sodium (Depakote Sprinkles) 250 mg BIDWMEALS PO 09/24/20 19:00 09/24/20 19:05 DC Divalproex Sodium (Depakote Sprinkles) 250 mg BIDWMEALS PO 09/25/20 09:00 10/01/20 21:26 DC 10/01/20 16:41 Cephalexin HCl (Keflex) 500 mg TID PO 09/26/20 21:00 10/03/20 21:00 DC 10/03/20 20:08 Divalproex Sodium (Depakote Sprinkles) 250 mg HS PO 09/28/20 21:00 10/01/20 21:26 DC 10/01/20 19:50 Lactobacillus Rhamnosus (Culturelle) 1 cap BID PO 09/30/20 21:00 10/13/20 08:50 Divalproex Sodium (Depakote Sprinkles) 375 mg BIDWMEALS PO 10/02/20 08:00 10/13/20 08:50 Divalproex Sodium (Depakote Sprinkles) 375 mg HS PO 10/02/20 21:00 10/06/20 18:01 DC 10/05/20 20:00 Sertraline HCl (Zoloft) 50 mg DAILY PO 10/03/20 09:00 10/09/20 11:51 DC 10/09/20 09:56 Non-Formulary Medication (Non Formulary Item (Prevident Toothpaste)) 1 ea BID PO 10/06/20 21:00 10/10/20 20:23 Divalproex Sodium (Depakote Sprinkles) 625 mg HS PO 10/06/20 21:00 10/12/20 20:00 Sertraline HCl (Zoloft) 75 mg DAILY PO 10/10/20 09:00 10/13/20 08:51 I have reviewed the current psychotropics carefully including drug interactions. Risk benefit ratio favors no change other than as noted in my dictated progress note. Diagnosis: Problems: (1) Impulse control disorder, unspecified (2) Vascular dementia with delusions (3) Anxiety disorder, unspecified (4) Vascular dementia with depression (5) Major neurocognitive disorder (6) Dementia in Alzheimer's disease with depression (7) Dementia in Alzheimer's disease with delusions (8) Dementia of the Alzheimer's type with early onset with behavioral disturbance (9) Major depressive disorder with psychotic features PRABHAKAR MOLINA MD Oct 13, 2020 09:14
[2020-10-13 15:46] VITALS: BP 124/84
[2020-10-13] MEDS: MIRTAZAPINE 15 MG TABLET PO SCH (20:03)
[2020-10-13] MEDS: traZODone 50 MG TABLET. PO PRN (20:03)
--- NOTE | 2020-10-13 22:05 | PDOC ---
Exam Note: Manish Note: Please also refer to the separate dictated note~for this date of service dictated separately.~Patient seen individually. Discussed the patient with Nursing staff reviewed the chart.~Reviewed interim history and current functioning. Reviewed vital signs,~Labs/ Radiology~and current medications noted below. Continue current treatment with the changes noted in the dictated addendum note Assessment: Vital Signs/I&O: Vital Signs Date Time Temp Pulse Resp B/P (MAP) Pulse Ox O2 Delivery O2 Flow Rate FiO2 10/13/20 15:46 97.7 86 20 124/84 (97) 93 Room Air I & O 10/12/20 10/12/20 10/13/20 15:00 23:00 07:00 Intake Total 200 ml 240 ml Balance 200 ml 240 ml Current Medications: Meds: Current Medications Medications (Trade) Dose Ordered Sig/Sonia Route PRN Reason Start Time Stop Time Status Last Admin Dose Admin Fenofibrate (Tricor) 48 mg DAILY PO 09/18/20 09:00 10/13/20 08:57 Fluticasone Propionate (Flonase) 2 spray DAILY NS 09/18/20 09:00 10/13/20 08:57 Metoprolol Succinate (Toprol Xl) 50 mg DAILY PO 09/18/20 09:00 10/13/20 08:52 Mirtazapine (Remeron) 15 mg QHS PO 09/17/20 21:00 10/13/20 20:03 Olanzapine (ZyPREXA ZYDIS) 5 mg DAILY PO 09/18/20 09:00 09/17/20 15:00 DC Pantoprazole Sodium (Protonix) 40 mg DAILY PO 09/18/20 09:00 10/13/20 08:51 Multivitamins/ Calcium (Thera-M Plus) 1 tab DAILY PO 09/18/20 09:00 10/13/20 08:50 Acetaminophen (Tylenol) 650 mg PRN Q6HRS PRN PO MILD PAIN / TEMP > 100.3'F 09/17/20 12:30 10/01/20 05:36 Multi-Ingredient Ointment (Analgesic [place]) 1 olu PRN QID PRN TP MUSCLE PAIN 09/17/20 12:30 09/23/20 21:23 Al Hydroxide/Mg Hydroxide (Mylanta Plus Xs) 15 ml PRN AFTMEALHC PRN PO DYSPEPSIA 09/17/20 12:30 Magnesium Hydroxide (Milk Of Magnesia) 2,400 mg PRN QHS PRN PO CONSTIPATION 09/17/20 12:30 Quetiapine Fumarate (SEROquel) 25 mg PRN Q2HRS PRN PO ANXIETY / AGITATION 09/17/20 14:45 10/13/20 08:56 Olanzapine (ZyPREXA) 2.5 mg TID PO 09/17/20 21:00 09/18/20 20:32 DC 09/18/20 14:07 Trazodone HCl (Desyrel) 50 mg PRN QHS PRN PO INSOMNIA, MAY REPEAT X1 09/17/20 14:45 10/13/20 20:03 Lidocaine HCl (Uro-Jet) 1 olu PRN DAILY PRN MM SEE ADMIN INSTRUCTIONS 09/18/20 17:15 Divalproex Sodium (Depakote Sprinkles) 250 mg BIDWMEALS PO 09/24/20 19:00 09/24/20 19:05 DC Divalproex Sodium (Depakote Sprinkles) 250 mg BIDWMEALS PO 09/25/20 09:00 10/01/20 21:26 DC 10/01/20 16:41 Cephalexin HCl (Keflex) 500 mg TID PO 09/26/20 21:00 10/03/20 21:00 DC 10/03/20 20:08 Divalproex Sodium (Depakote Sprinkles) 250 mg HS PO 09/28/20 21:00 10/01/20 21:26 DC 10/01/20 19:50 Lactobacillus Rhamnosus (Culturelle) 1 cap BID PO 09/30/20 21:00 10/13/20 20:03 Divalproex Sodium (Depakote Sprinkles) 375 mg BIDWMEALS PO 10/02/20 08:00 10/13/20 20:03 Divalproex Sodium (Depakote Sprinkles) 375 mg HS PO 10/02/20 21:00 10/06/20 18:01 DC 10/05/20 20:00 Sertraline HCl (Zoloft) 50 mg DAILY PO 10/03/20 09:00 10/09/20 11:51 DC 10/09/20 09:56 Non-Formulary Medication (Non Formulary Item (Prevident Toothpaste)) 1 ea BID PO 10/06/20 21:00 10/10/20 20:23 Divalproex Sodium (Depakote Sprinkles) 625 mg HS PO 10/06/20 21:00 10/13/20 20:03 Sertraline HCl (Zoloft) 75 mg DAILY PO 10/10/20 09:00 10/13/20 08:51 I have reviewed the current psychotropics carefully including drug interactions. Risk benefit ratio favors no change other than as noted in my dictated progress note. Diagnosis: Problems: (1) Impulse control disorder, unspecified (2) Vascular dementia with delusions (3) Anxiety disorder, unspecified (4) Vascular dementia with depression (5) Major neurocognitive disorder (6) Dementia in Alzheimer's disease with depression (7) Dementia in Alzheimer's disease with delusions (8) Dementia of the Alzheimer's type with early onset with behavioral disturbance (9) Major depressive disorder with psychotic features PRABHAKAR MOLINA MD Oct 13, 2020 22:05
[2020-10-14 06:08] VITALS: BP 119/79
[2020-10-14] MEDS: SERTRALINE 50 MG TABLET. PO SCH (08:01)
[2020-10-14] MEDS: PANTOPRAZOLE 40 MG TABLET. PO SCH (08:01)
[2020-10-14] MEDS: METOPROLOL SUCC 24HR ER 50 MG TAB.ER.24H. PO SCH (08:01)
[2020-10-14] MEDS: LACTOBACILLUS RHAMNOSUS GG 1 CAPSULE. PO SCH ×2 (08:02→19:48)
[2020-10-14] MEDS: MULTIVITAMIN with MINERAL TABLET. PO SCH (08:02)
[2020-10-14] MEDS: FENOFIBRATE NANOCRYSTALLIZED 48 MG TABLET PO SCH (08:03)
[2020-10-14] MEDS: FLUTICASONE 50MCG/NASAL SPRAY 16GM BOTTLE. NS SCH (08:04)
[2020-10-14] MEDS: [UNRECOGNIZED DRUG - OTHER] PO SCH ×2 (08:04→19:48)
--- NOTE | 2020-10-14 09:16 | PDOC ---
Exam Note: Manish Note: This note is a late entry for 10/13/2020 covers elements not covered in my initial note. Subjective: The patient was seen individually in the evening of 10/13/2020 with Mihaela ULLOA, discussed and reviewed the chart. He slept 6-1/2 hours previous night. The patient is somewhat resistive to cares but later compliant. Review of Systems: Ambulation impaired in wheelchair. No CV, , pulmonary, eye, ENT system symptoms on review. Mental Status Exam: The patient is oriented to himself. Insight and judgment, recent and remote memory, attention and concentration, fund of knowledge is poor consistent with his diagnoses. Laboratory Data: Reviewed. Impression: Major neurocognitive disorder Alzheimer vascular with delusion, depression, behavioral disturbance. Major depressive disorder with psychotic features. Anxiety disorder unspecified. Impulse control disorder unspecified. Plan: No change from initial note. Assessment: Vital Signs/I&O: Vital Signs Date Time Temp Pulse Resp B/P (MAP) Pulse Ox O2 Delivery O2 Flow Rate FiO2 10/14/20 08:01 103 119/79 10/14/20 06:08 99.0 16 95 10/13/20 15:46 Room Air I & O 10/13/20 10/13/20 10/14/20 15:00 23:00 07:00 Intake Total 240 ml 360 ml Balance 240 ml 360 ml Current Medications: Meds: Current Medications Medications (Trade) Dose Ordered Sig/Sonia Route PRN Reason Start Time Stop Time Status Last Admin Dose Admin Fenofibrate (Tricor) 48 mg DAILY PO 09/18/20 09:00 10/14/20 08:03 Fluticasone Propionate (Flonase) 2 spray DAILY NS 09/18/20 09:00 10/14/20 08:04 Metoprolol Succinate (Toprol Xl) 50 mg DAILY PO 09/18/20 09:00 10/14/20 08:01 Mirtazapine (Remeron) 15 mg QHS PO 09/17/20 21:00 10/13/20 20:03 Olanzapine (ZyPREXA ZYDIS) 5 mg DAILY PO 09/18/20 09:00 09/17/20 15:00 DC Pantoprazole Sodium (Protonix) 40 mg DAILY PO 09/18/20 09:00 10/14/20 08:01 Multivitamins/ Calcium (Thera-M Plus) 1 tab DAILY PO 09/18/20 09:00 10/14/20 08:02 Acetaminophen (Tylenol) 650 mg PRN Q6HRS PRN PO MILD PAIN / TEMP > 100.3'F 09/17/20 12:30 10/01/20 05:36 Multi-Ingredient Ointment (Analgesic [place]) 1 olu PRN QID PRN TP MUSCLE PAIN 09/17/20 12:30 09/23/20 21:23 Al Hydroxide/Mg Hydroxide (Mylanta Plus Xs) 15 ml PRN AFTMEALHC PRN PO DYSPEPSIA 09/17/20 12:30 Magnesium Hydroxide (Milk Of Magnesia) 2,400 mg PRN QHS PRN PO CONSTIPATION 09/17/20 12:30 Quetiapine Fumarate (SEROquel) 25 mg PRN Q2HRS PRN PO ANXIETY / AGITATION 09/17/20 14:45 10/13/20 08:56 Olanzapine (ZyPREXA) 2.5 mg TID PO 09/17/20 21:00 09/18/20 20:32 DC 09/18/20 14:07 Trazodone HCl (Desyrel) 50 mg PRN QHS PRN PO INSOMNIA, MAY REPEAT X1 09/17/20 14:45 10/13/20 20:03 Lidocaine HCl (Uro-Jet) 1 olu PRN DAILY PRN MM SEE ADMIN INSTRUCTIONS 09/18/20 17:15 Divalproex Sodium (Depakote Sprinkles) 250 mg BIDWMEALS PO 09/24/20 19:00 09/24/20 19:05 DC Divalproex Sodium (Depakote Sprinkles) 250 mg BIDWMEALS PO 09/25/20 09:00 10/01/20 21:26 DC 10/01/20 16:41 Cephalexin HCl (Keflex) 500 mg TID PO 09/26/20 21:00 10/03/20 21:00 DC 10/03/20 20:08 Divalproex Sodium (Depakote Sprinkles) 250 mg HS PO 09/28/20 21:00 10/01/20 21:26 DC 10/01/20 19:50 Lactobacillus Rhamnosus (Culturelle) 1 cap BID PO 09/30/20 21:00 10/14/20 08:02 Divalproex Sodium (Depakote Sprinkles) 375 mg BIDWMEALS PO 10/02/20 08:00 10/13/20 20:03 Divalproex Sodium (Depakote Sprinkles) 375 mg HS PO 10/02/20 21:00 10/06/20 18:01 DC 10/05/20 20:00 Sertraline HCl (Zoloft) 50 mg DAILY PO 10/03/20 09:00 10/09/20 11:51 DC 10/09/20 09:56 Non-Formulary Medication (Non Formulary Item (Prevident Toothpaste)) 1 ea BID PO 10/06/20 21:00 10/10/20 20:23 Divalproex Sodium (Depakote Sprinkles) 625 mg HS PO 10/06/20 21:00 10/13/20 20:03 Sertraline HCl (Zoloft) 75 mg DAILY PO 10/10/20 09:00 10/14/20 08:01 I have reviewed the current psychotropics carefully including drug interactions. Risk benefit ratio favors no change other than as noted in my dictated progress note. 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
[2020-10-14 15:55] VITALS: BP 110/69
[2020-10-14] MEDS: DIVALPROEX 125 MG CAP.SPRINK PO SCH ×2 (17:11→19:48)
[2020-10-14] MEDS: MIRTAZAPINE 15 MG TABLET PO SCH (19:48)
[2020-10-14] MEDS: traZODone 50 MG TABLET. PO PRN (19:48)
--- NOTE | 2020-10-14 21:25 | PDOC ---
Exam Note: Manish Note: Please also refer to the separate dictated note~for this date of service dictated separately.~Patient seen individually. Discussed the patient with Nursing staff reviewed the chart.~Reviewed interim history and current functioning. Reviewed vital signs,~Labs/ Radiology~and current medications noted below. Continue current treatment with the changes noted in the dictated addendum note Assessment: Vital Signs/I&O: Vital Signs Date Time Temp Pulse Resp B/P (MAP) Pulse Ox O2 Delivery O2 Flow Rate FiO2 10/14/20 15:55 97.6 94 20 110/69 (83) 97 Room Air I & O 10/13/20 10/13/20 10/14/20 14:59 22:59 06:59 Intake Total 240 ml 360 ml Balance 240 ml 360 ml Current Medications: Meds: Current Medications Medications (Trade) Dose Ordered Sig/Sonia Route PRN Reason Start Time Stop Time Status Last Admin Dose Admin Fenofibrate (Tricor) 48 mg DAILY PO 09/18/20 09:00 10/14/20 08:03 Fluticasone Propionate (Flonase) 2 spray DAILY NS 09/18/20 09:00 10/14/20 08:04 Metoprolol Succinate (Toprol Xl) 50 mg DAILY PO 09/18/20 09:00 10/14/20 08:01 Mirtazapine (Remeron) 15 mg QHS PO 09/17/20 21:00 10/14/20 19:48 Olanzapine (ZyPREXA ZYDIS) 5 mg DAILY PO 09/18/20 09:00 09/17/20 15:00 DC Pantoprazole Sodium (Protonix) 40 mg DAILY PO 09/18/20 09:00 10/14/20 08:01 Multivitamins/ Calcium (Thera-M Plus) 1 tab DAILY PO 09/18/20 09:00 10/14/20 08:02 Acetaminophen (Tylenol) 650 mg PRN Q6HRS PRN PO MILD PAIN / TEMP > 100.3'F 09/17/20 12:30 10/01/20 05:36 Multi-Ingredient Ointment (Analgesic [place]) 1 olu PRN QID PRN TP MUSCLE PAIN 09/17/20 12:30 09/23/20 21:23 Al Hydroxide/Mg Hydroxide (Mylanta Plus Xs) 15 ml PRN AFTMEALHC PRN PO DYSPEPSIA 09/17/20 12:30 Magnesium Hydroxide (Milk Of Magnesia) 2,400 mg PRN QHS PRN PO CONSTIPATION 09/17/20 12:30 Quetiapine Fumarate (SEROquel) 25 mg PRN Q2HRS PRN PO ANXIETY / AGITATION 09/17/20 14:45 10/13/20 08:56 Olanzapine (ZyPREXA) 2.5 mg TID PO 09/17/20 21:00 09/18/20 20:32 DC 09/18/20 14:07 Trazodone HCl (Desyrel) 50 mg PRN QHS PRN PO INSOMNIA, MAY REPEAT X1 09/17/20 14:45 10/14/20 19:48 Lidocaine HCl (Uro-Jet) 1 olu PRN DAILY PRN MM SEE ADMIN INSTRUCTIONS 09/18/20 17:15 Divalproex Sodium (Depakote Sprinkles) 250 mg BIDWMEALS PO 09/24/20 19:00 09/24/20 19:05 DC Divalproex Sodium (Depakote Sprinkles) 250 mg BIDWMEALS PO 09/25/20 09:00 10/01/20 21:26 DC 10/01/20 16:41 Cephalexin HCl (Keflex) 500 mg TID PO 09/26/20 21:00 10/03/20 21:00 DC 10/03/20 20:08 Divalproex Sodium (Depakote Sprinkles) 250 mg HS PO 09/28/20 21:00 10/01/20 21:26 DC 10/01/20 19:50 Lactobacillus Rhamnosus (Culturelle) 1 cap BID PO 09/30/20 21:00 10/14/20 19:48 Divalproex Sodium (Depakote Sprinkles) 375 mg BIDWMEALS PO 10/02/20 08:00 10/14/20 17:11 Divalproex Sodium (Depakote Sprinkles) 375 mg HS PO 10/02/20 21:00 10/06/20 18:01 DC 10/05/20 20:00 Sertraline HCl (Zoloft) 50 mg DAILY PO 10/03/20 09:00 10/09/20 11:51 DC 10/09/20 09:56 Non-Formulary Medication (Non Formulary Item (Prevident Toothpaste)) 1 ea BID PO 10/06/20 21:00 10/10/20 20:23 Divalproex Sodium (Depakote Sprinkles) 625 mg HS PO 10/06/20 21:00 10/14/20 19:48 Sertraline HCl (Zoloft) 75 mg DAILY PO 10/10/20 09:00 10/14/20 08:01 I have reviewed the current psychotropics carefully including drug interactions. Risk benefit ratio favors no change other than as noted in my dictated progress note. Diagnosis: Problems: (1) Psychotic disorder (2) Impulse control disorder, unspecified (3) Vascular dementia with delusions (4) Anxiety disorder, unspecified (5) Vascular dementia with depression (6) Major neurocognitive disorder (7) Dementia in Alzheimer's disease with depression (8) Dementia in Alzheimer's disease with delusions (9) Dementia of the Alzheimer's type with early onset with behavioral disturbance (10) Major depressive disorder with psychotic features PRABHAKAR MOLINA MD Oct 14, 2020 21:25
[2020-10-15 06:25] VITALS: BP 113/80
[2020-10-15] MEDS: DIVALPROEX 125 MG CAP.SPRINK PO SCH ×3 (07:55→20:30)
[2020-10-15] MEDS: PANTOPRAZOLE 40 MG TABLET. PO SCH (07:56)
[2020-10-15] MEDS: SERTRALINE 50 MG TABLET. PO SCH (07:56)
[2020-10-15] MEDS: FENOFIBRATE NANOCRYSTALLIZED 48 MG TABLET PO SCH (07:56)
[2020-10-15] MEDS: METOPROLOL SUCC 24HR ER 50 MG TAB.ER.24H. PO SCH (07:56)
[2020-10-15] MEDS: LACTOBACILLUS RHAMNOSUS GG 1 CAPSULE. PO SCH ×2 (07:56→20:30)
[2020-10-15] MEDS: MULTIVITAMIN with MINERAL TABLET. PO SCH (07:56)
[2020-10-15] MEDS: [UNRECOGNIZED DRUG - OTHER] PO SCH ×2 (07:57→20:29)
[2020-10-15] MEDS: FLUTICASONE 50MCG/NASAL SPRAY 16GM BOTTLE. NS SCH (07:57)
[2020-10-15 16:09] VITALS: BP 123/85
[2020-10-15] MEDS: MIRTAZAPINE 15 MG TABLET PO SCH (20:30)
--- NOTE | 2020-10-15 22:03 | PDOC ---
Exam Note: Manish Note: Please also refer to the separate dictated note~for this date of service dictated separately.~Patient seen individually. Discussed the patient with Nursing staff reviewed the chart.~Reviewed interim history and current functioning. Reviewed vital signs,~Labs/ Radiology~and current medications noted below. Continue current treatment with the changes noted in the dictated addendum note Assessment: Vital Signs/I&O: Vital Signs Date Time Temp Pulse Resp B/P (MAP) Pulse Ox O2 Delivery O2 Flow Rate FiO2 10/15/20 16:09 98.4 80 18 123/85 (98) 96 10/15/20 06:25 Room Air I & O 10/14/20 10/14/20 10/15/20 15:00 23:00 07:00 Intake Total 0 ml 480 ml Balance 0 ml 480 ml Current Medications: Meds: Current Medications Medications (Trade) Dose Ordered Sig/Sonia Route PRN Reason Start Time Stop Time Status Last Admin Dose Admin Fenofibrate (Tricor) 48 mg DAILY PO 09/18/20 09:00 10/15/20 07:56 Fluticasone Propionate (Flonase) 2 spray DAILY NS 09/18/20 09:00 10/15/20 07:57 Metoprolol Succinate (Toprol Xl) 50 mg DAILY PO 09/18/20 09:00 10/15/20 07:56 Mirtazapine (Remeron) 15 mg QHS PO 09/17/20 21:00 10/15/20 20:30 Olanzapine (ZyPREXA ZYDIS) 5 mg DAILY PO 09/18/20 09:00 09/17/20 15:00 DC Pantoprazole Sodium (Protonix) 40 mg DAILY PO 09/18/20 09:00 10/15/20 07:56 Multivitamins/ Calcium (Thera-M Plus) 1 tab DAILY PO 09/18/20 09:00 10/15/20 07:56 Acetaminophen (Tylenol) 650 mg PRN Q6HRS PRN PO MILD PAIN / TEMP > 100.3'F 09/17/20 12:30 10/01/20 05:36 Multi-Ingredient Ointment (Analgesic [place]) 1 olu PRN QID PRN TP MUSCLE PAIN 09/17/20 12:30 09/23/20 21:23 Al Hydroxide/Mg Hydroxide (Mylanta Plus Xs) 15 ml PRN AFTMEALHC PRN PO DYSPEPSIA 09/17/20 12:30 Magnesium Hydroxide (Milk Of Magnesia) 2,400 mg PRN QHS PRN PO CONSTIPATION 09/17/20 12:30 Quetiapine Fumarate (SEROquel) 25 mg PRN Q2HRS PRN PO ANXIETY / AGITATION 09/17/20 14:45 10/13/20 08:56 Olanzapine (ZyPREXA) 2.5 mg TID PO 09/17/20 21:00 09/18/20 20:32 DC 09/18/20 14:07 Trazodone HCl (Desyrel) 50 mg PRN QHS PRN PO INSOMNIA, MAY REPEAT X1 09/17/20 14:45 10/14/20 19:48 Lidocaine HCl (Uro-Jet) 1 olu PRN DAILY PRN MM SEE ADMIN INSTRUCTIONS 09/18/20 17:15 Divalproex Sodium (Depakote Sprinkles) 250 mg BIDWMEALS PO 09/24/20 19:00 09/24/20 19:05 DC Divalproex Sodium (Depakote Sprinkles) 250 mg BIDWMEALS PO 09/25/20 09:00 10/01/20 21:26 DC 10/01/20 16:41 Cephalexin HCl (Keflex) 500 mg TID PO 09/26/20 21:00 10/03/20 21:00 DC 10/03/20 20:08 Divalproex Sodium (Depakote Sprinkles) 250 mg HS PO 09/28/20 21:00 10/01/20 21:26 DC 10/01/20 19:50 Lactobacillus Rhamnosus (Culturelle) 1 cap BID PO 09/30/20 21:00 10/15/20 20:30 Divalproex Sodium (Depakote Sprinkles) 375 mg BIDWMEALS PO 10/02/20 08:00 10/15/20 17:23 Divalproex Sodium (Depakote Sprinkles) 375 mg HS PO 10/02/20 21:00 10/06/20 18:01 DC 10/05/20 20:00 Sertraline HCl (Zoloft) 50 mg DAILY PO 10/03/20 09:00 10/09/20 11:51 DC 10/09/20 09:56 Non-Formulary Medication (Non Formulary Item (Prevident Toothpaste)) 1 ea BID PO 10/06/20 21:00 10/10/20 20:23 Divalproex Sodium (Depakote Sprinkles) 625 mg HS PO 10/06/20 21:00 10/15/20 20:30 Sertraline HCl (Zoloft) 75 mg DAILY PO 10/10/20 09:00 10/15/20 18:32 DC 10/15/20 07:56 Sertraline HCl (Zoloft) 100 mg DAILY PO 10/16/20 09:00 I have reviewed the current psychotropics carefully including drug interactions. Risk benefit ratio favors no change other than as noted in my dictated progress note. 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
[2020-10-16 06:43] VITALS: BP 162/90
[2020-10-16] MEDS: PANTOPRAZOLE 40 MG TABLET. PO SCH (07:42)
[2020-10-16] MEDS: SERTRALINE 50 MG TABLET. PO SCH (07:42)
[2020-10-16] MEDS: FENOFIBRATE NANOCRYSTALLIZED 48 MG TABLET PO SCH (07:42)
[2020-10-16] MEDS: METOPROLOL SUCC 24HR ER 50 MG TAB.ER.24H. PO SCH (07:42)
[2020-10-16] MEDS: LACTOBACILLUS RHAMNOSUS GG 1 CAPSULE. PO SCH ×2 (07:42→23:36)
[2020-10-16] MEDS: MULTIVITAMIN with MINERAL TABLET. PO SCH (07:42)
[2020-10-16] MEDS: DIVALPROEX 125 MG CAP.SPRINK PO SCH ×3 (07:43→23:36)
[2020-10-16] MEDS: FLUTICASONE 50MCG/NASAL SPRAY 16GM BOTTLE. NS SCH (07:43)
[2020-10-16] MEDS: [UNRECOGNIZED DRUG - OTHER] PO SCH ×2 (09:00→23:36)
--- NOTE | 2020-10-16 14:49 | TX PLAN ---
Interdisciplinary Tx Plan Admission Information Sep 17, 2020 at 10:23 Legal Status (on Admission): Voluntary DPOA/Guardian Name: Halina Gomez Contact Other Contact Name: Halina Gomez Other Contact Verified Code Status: DNR Allergies: Coded Allergies: No Known Drug Allergies (Unverified , 08/01/20) Diagnoses Primary Diagnosis: MDD with psychotic features, Major Neurocognitive D/O, Alzheimers, vascular with delusions, depression Reasons for Admission: Aggressive, Agitated, Sig. Change Sleep, Confusion/Disoriented Problem in Patient's Words: This whole catheter issue has caused him to become unsteady again and needs to be stable. Additional Admission Comments: According to the intake, pt is agitated, verbally aggressive, disoriented, insomnia, hostile and sundowning Problems Active Problems: verbally aggressive agitated physically aggressive labile Inactive Problems: Medication compliant Pt Strengths/Limitations Ability for [place]: Poor Cognitive Functioning/Ability: Fair Communication Skills/Ability: Fair Financial Resources: Good Insight/Judgement: Poor Intellectual Ability: Fair Physical Health: Poor Social Skills: Fair Stability in Family: Good Stability in School/Work: Poor Verbal Skills: Fair Discharge Criteria Discharge Criteria: No need for close observ., Adequate arrangements @DC, Improved behavior, Improved mood/thought Preliminary Discharge Plan Preliminary DC Plan: Placement Needed Special Precautions Fall Risk: Moderate Initial D/C Plan Pt will need placement upon dishcarge; request for SNF/rehab facility Identified Discharge Needs: Referrals for a higher level of care Currently Utilized Resources Currently Utilized Resources/P: Primary Care Physician Referrals Community Resources: Referrals to higher level of care. Identified Problems/Hx/Goals Objectives/Short-Term Goals Short Term Goals: Dec. Aggression, Dec. Outbursts, Medication Stabilization, Monitor Med Effects, Promote Coping Skill Short Term Goals in Patient's: N/A Interventions/Frequency Staff Interventions/Frequency&: Psychiatrist to assess pt at least 3x per week for medication management and effects. Social Work to assess pt at least 2x per week for barriers to care and finalize discharge plans with all involved parties. Nursing to assess behaviors, medication effects and completion of 15 minute checks daily. Encourage group participation in activities (if applicable) or 1:1 engagement based off activity dept goals. 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 Education: Pt graduated from High school (12th grade). Community Follow-up Primary Care Physician Possible referrals for psychiatrist while at placement Community Provider/Family Inpu: Pt is concerned about pt medications creating urinary trouble and wishes for these effects to be monitored closely. Pt needs to be able to walk before he can return home which is why pt may need to be at SNF/rehab after discharge. Treatment Plan Explained Patient/Lead Cashier had this treatment plan explained to him/her as indicated by the signature below and has been given the opportunity to ask questions and make suggestions: Date: Patient/Lead Cashier Signature: Status Update Update Pt is eating roughly 75% of meals and sleeping on average 6 hours per night. Pt continues to be irritable and combative with cares (hitting, kicking, verbal aggression). Pt continues to also have some troubles in the dining room as he will hold on to the table and refuse to let go despite redirection. Pt is completely incontinent and often found in the morning in urine soaked clothing and bedding. Pt did attend 3 groups this week but had some difficulty being redirected. Pt will start Buspar 5mg BID. With documented behaviors, pt family will need to consider more of a memory care setting for rehab as pt does not have the capacity to complete therapy. SW will continue to work with pt family on this matter; as well as inform them of pt coming into his [facility] [place] days. BRITTA PARKER Oct 16, 2020 14:49
[2020-10-16 15:45] VITALS: BP 120/86
[2020-10-16] MEDS: busPIRone 5 MG TABLET. PO SCH (16:46)
--- NOTE | 2020-10-16 21:52 | PDOC ---
Exam Note: Manish Note: Please also refer to the separate dictated note~for this date of service dictated separately.~Patient seen individually. Discussed the patient with Nursing staff reviewed the chart.~Reviewed interim history and current functioning. Reviewed vital signs,~Labs/ Radiology~and current medications noted below. Continue current treatment with the changes noted in the dictated addendum note Assessment: Vital Signs/I&O: Vital Signs Date Time Temp Pulse Resp B/P (MAP) Pulse Ox O2 Delivery O2 Flow Rate FiO2 10/16/20 15:45 98.1 102 19 120/86 (97) 95 10/15/20 06:25 Room Air I & O 10/15/20 10/15/20 10/16/20 15:00 23:00 07:00 Intake Total 720 ml Balance 720 ml Current Medications: Meds: Current Medications Medications (Trade) Dose Ordered Sig/Sonia Route PRN Reason Start Time Stop Time Status Last Admin Dose Admin Sertraline HCl (Zoloft) 100 mg DAILY PO 10/16/20 09:00 10/16/20 07:42 Buspirone HCl (Buspar) 5 mg 1200,1700 PO 10/16/20 17:00 10/16/20 16:46 I have reviewed the current psychotropics carefully including drug interactions. Risk benefit ratio favors no change other than as noted in my dictated progress note. Diagnosis: Problems: (1) Impulse control disorder, unspecified (2) Vascular dementia with delusions (3) Anxiety disorder, unspecified (4) Vascular dementia with depression (5) Major neurocognitive disorder (6) Dementia in Alzheimer's disease with depression (7) Dementia in Alzheimer's disease with delusions (8) Dementia of the Alzheimer's type with early onset with behavioral disturbance (9) Major depressive disorder with psychotic features PRABHAKAR MOLINA MD Oct 16, 2020 21:52
[2020-10-16] MEDS: MIRTAZAPINE 15 MG TABLET PO SCH (23:36)
[2020-10-17 05:55] VITALS: BP 122/66
[2020-10-17 06:44] LABS: BASO # 0.1 x10^3/uL (0.0-0.2); BASO % 1 % (0-3); EOS # 0.1 x10^3/uL (0.0-0.7); EOS % 2 % (0-3); HEMATOCRIT 43.8 % (39.0-53.0); HEMOGLOBIN 14.5 g/dL (13.0-17.5); LYMPH # 1.4 x10^3/uL (1.0-4.8); LYMPH % 19 % (24-48); MEAN CORPUSCULAR HEMOGLOBIN 30 pg (25-35); MEAN CORPUSCULAR HGB CONC 33 g/dL (31-37); MEAN CORPUSCULAR VOLUME 91 fL (79-100); MONO # 1.3 x10^3/uL (0.0-1.1); MONO % 18 % (0-9); NEUT # 4.4 x10^3uL (1.8-7.7); NEUT % 61 % (31-73); PLATELET COUNT 213 x10^3/uL (140-400); RED BLOOD COUNT 4.84 x10^6/uL (4.30-5.70); RED CELL DISTRIBUTION WIDTH 13.8 % (11.5-14.5); WHITE BLOOD COUNT 7.2 x10^3/uL (4.0-11.0)
[2020-10-17 06:45] LABS: ALBUMIN 2.7 g/dL (3.4-5.0); ALBUMIN/GLOBULIN RATIO 0.7 (1.0-1.7); CALCIUM 9.2 mg/dL (8.5-10.1); CREATININE 1.1 mg/dL (0.7-1.3); GFR 64.9; POTASSIUM 3.7 mmol/L (3.5-5.1); TOTAL BILIRUBIN 0.6 mg/dL (0.2-1.0); TOTAL PROTEIN 6.6 g/dL (6.4-8.2)
--- NOTE | 2020-10-17 08:28 | PDOC ---
Exam Note: Manish Note: This note is a late entry for 10/14/2020 covers elements not covered in my initial note. Subjective: The patient was seen individually in the morning of 10/14/2020 [place] ULLOA, discussed and reviewed the chart. He slept 5-1/2 hours previous night. The patient remains confused, little resistive with cares. He was very appreciative of my visit, repeatedly stating how much he felt obligated that I had come to visit with him. Review of Systems: Ambulation impaired in wheelchair. No CV, , pulmonary, eye, ENT system symptoms on review. Mental Status Exam: The patient is oriented to himself. Insight and judgment, recent and remote memory, attention and concentration, fund of knowledge is poor consistent with his diagnoses. Laboratory Data: Reviewed. Impression: Major neurocognitive disorder Alzheimer vascular with delusion, depression, behavioral disturbance. Major depressive disorder with psychotic features. Anxiety disorder unspecified. Impulse control disorder unspecified. Plan: No change from initial note. Assessment: Vital Signs/I&O: Vital Signs Date Time Temp Pulse Resp B/P (MAP) Pulse Ox O2 Delivery O2 Flow Rate FiO2 10/17/20 05:55 97.8 89 20 122/66 (84) 93 10/15/20 06:25 Room Air I & O 10/16/20 10/16/20 10/17/20 15:00 23:00 07:00 Intake Total 840 ml 320 ml Balance 840 ml 320 ml Labs: Laboratory Tests Test 10/17/20 06:10 White Blood Count 7.2 x10^3/uL (4.0-11.0) Red Blood Count 4.84 x10^6/uL (4.30-5.70) Hemoglobin 14.5 g/dL (13.0-17.5) Hematocrit 43.8 % (39.0-53.0) Mean Corpuscular Volume 91 fL (79-100) Mean Corpuscular Hemoglobin 30 pg (25-35) Mean Corpuscular Hemoglobin Concent 33 g/dL (31-37) Red Cell Distribution Width 13.8 % (11.5-14.5) Platelet Count 213 x10^3/uL (140-400) Neutrophils (%) (Auto) 61 % (31-73) Lymphocytes (%) (Auto) 19 % (24-48) L Monocytes (%) (Auto) 18 % (0-9) H Eosinophils (%) (Auto) 2 % (0-3) Basophils (%) (Auto) 1 % (0-3) Neutrophils # (Auto) 4.4 x10^3uL (1.8-7.7) Lymphocytes # (Auto) 1.4 x10^3/uL (1.0-4.8) Monocytes # (Auto) 1.3 x10^3/uL (0.0-1.1) H Eosinophils # (Auto) 0.1 x10^3/uL (0.0-0.7) Basophils # (Auto) 0.1 x10^3/uL (0.0-0.2) Sodium Level 147 mmol/L (136-145) H Potassium Level 3.7 mmol/L (3.5-5.1) Chloride Level 110 mmol/L (98-107) H Carbon Dioxide Level 30 mmol/L (21-32) Anion Gap 7 (6-14) Blood Urea Nitrogen 34 mg/dL (8-26) H Creatinine 1.1 mg/dL (0.7-1.3) Estimated GFR (Cockcroft-Gault) 64.9 BUN/Creatinine Ratio 31 (6-20) H Glucose Level 116 mg/dL (70-99) H Calcium Level 9.2 mg/dL (8.5-10.1) Total Bilirubin 0.6 mg/dL (0.2-1.0) Aspartate Amino Transferase (AST) 31 U/L (15-37) Alanine Aminotransferase (ALT) 27 U/L (16-63) Alkaline Phosphatase 56 U/L (46-116) Total Protein 6.6 g/dL (6.4-8.2) Albumin 2.7 g/dL (3.4-5.0) L Albumin/Globulin Ratio 0.7 (1.0-1.7) L Current Medications: Meds: Current Medications Medications (Trade) Dose Ordered Sig/Sonia Route PRN Reason Start Time Stop Time Status Last Admin Dose Admin Sertraline HCl (Zoloft) 100 mg DAILY PO 10/16/20 09:00 10/16/20 07:42 Buspirone HCl (Buspar) 5 mg 1200,1700 PO 10/16/20 17:00 10/16/20 16:46 I have reviewed the current psychotropics carefully including drug interactions. Risk benefit ratio favors no change other than as noted in my dictated progress note. Diagnosis: Problems: (1) Psychotic disorder (2) Impulse control disorder, unspecified (3) Vascular dementia with delusions (4) Anxiety disorder, unspecified (5) Vascular dementia with depression (6) Major neurocognitive disorder (7) Dementia in Alzheimer's disease with depression (8) Dementia in Alzheimer's disease with delusions (9) Dementia of the Alzheimer's type with early onset with behavioral dist urbance (10) Major depressive disorder with psychotic features PRABHAKAR MOLINA MD Oct 17, 2020 08:28
--- NOTE | 2020-10-17 08:50 | PDOC ---
Exam Note: Manish Note: This note is a late entry for 10/15/2020 covers elements not covered in my initial note. Subjective: The patient was seen individually in the evening of 10/15/2020 with Juan ULLOA, discussed and reviewed the chart. He slept 6 hours previous night. The patient refused to get up in the morning till about lunch time. He later was resistive to cares and showers. At times, he is calmer. Review of Systems: Ambulation impaired in wheelchair. No CV, , pulmonary, eye, ENT system symptoms on review. Mental Status Exam: The patient is oriented to himself. Insight and judgment, recent and remote memory, attention and concentration, fund of knowledge is poor consistent with his diagnoses. Laboratory Data: Reviewed. Impression: Major neurocognitive disorder Alzheimer vascular with delusion, depression, behavioral disturbance. Major depressive disorder with psychotic features. Anxiety disorder unspecified. Impulse control disorder unspecified. Plan: No change from initial note. The patient is currently on Zoloft 75 mg a day, which was initiated on Oct 10. We will go ahead and increase it to 100 mg a day. Rest psychotropics unchanged from before. Assessment: Vital Signs/I&O: Vital Signs Date Time Temp Pulse Resp B/P (MAP) Pulse Ox O2 Delivery O2 Flow Rate FiO2 10/17/20 05:55 97.8 89 20 122/66 (84) 93 10/15/20 06:25 Room Air I & O 10/16/20 10/16/20 10/17/20 15:00 23:00 07:00 Intake Total 840 ml 320 ml Balance 840 ml 320 ml Labs: Laboratory Tests Test 10/17/20 06:10 White Blood Count 7.2 x10^3/uL (4.0-11.0) Red Blood Count 4.84 x10^6/uL (4.30-5.70) Hemoglobin 14.5 g/dL (13.0-17.5) Hematocrit 43.8 % (39.0-53.0) Mean Corpuscular Volume 91 fL (79-100) Mean Corpuscular Hemoglobin 30 pg (25-35) Mean Corpuscular Hemoglobin Concent 33 g/dL (31-37) Red Cell Distribution Width 13.8 % (11.5-14.5) Platelet Count 213 x10^3/uL (140-400) Neutrophils (%) (Auto) 61 % (31-73) Lymphocytes (%) (Auto) 19 % (24-48) L Monocytes (%) (Auto) 18 % (0-9) H Eosinophils (%) (Auto) 2 % (0-3) Basophils (%) (Auto) 1 % (0-3) Neutrophils # (Auto) 4.4 x10^3uL (1.8-7.7) Lymphocytes # (Auto) 1.4 x10^3/uL (1.0-4.8) Monocytes # (Auto) 1.3 x10^3/uL (0.0-1.1) H Eosinophils # (Auto) 0.1 x10^3/uL (0.0-0.7) Basophils # (Auto) 0.1 x10^3/uL (0.0-0.2) Sodium Level 147 mmol/L (136-145) H Potassium Level 3.7 mmol/L (3.5-5.1) Chloride Level 110 mmol/L (98-107) H Carbon Dioxide Level 30 mmol/L (21-32) Anion Gap 7 (6-14) Blood Urea Nitrogen 34 mg/dL (8-26) H Creatinine 1.1 mg/dL (0.7-1.3) Estimated GFR (Cockcroft-Gault) 64.9 BUN/Creatinine Ratio 31 (6-20) H Glucose Level 116 mg/dL (70-99) H Calcium Level 9.2 mg/dL (8.5-10.1) Total Bilirubin 0.6 mg/dL (0.2-1.0) Aspartate Amino Transferase (AST) 31 U/L (15-37) Alanine Aminotransferase (ALT) 27 U/L (16-63) Alkaline Phosphatase 56 U/L (46-116) Total Protein 6.6 g/dL (6.4-8.2) Albumin 2.7 g/dL (3.4-5.0) L Albumin/Globulin Ratio 0.7 (1.0-1.7) L Current Medications: Meds: Laboratory Tests Test 10/17/20 06:10 White Blood Count 7.2 x10^3/uL Red Blood Count 4.84 x10^6/uL Hemoglobin 14.5 g/dL Hematocrit 43.8 % Mean Corpuscular Volume 91 fL Mean Corpuscular Hemoglobin 30 pg Mean Corpuscular Hemoglobin Concent 33 g/dL Red Cell Distribution Width 13.8 % Platelet Count 213 x10^3/uL Neutrophils (%) (Auto) 61 % Lymphocytes (%) (Auto) 19 % Monocytes (%) (Auto) 18 % Eosinophils (%) (Auto) 2 % Basophils (%) (Auto) 1 % Neutrophils # (Auto) 4.4 x10^3uL Lymphocytes # (Auto) 1.4 x10^3/uL Monocytes # (Auto) 1.3 x10^3/uL Eosinophils # (Auto) 0.1 x10^3/uL Basophils # (Auto) 0.1 x10^3/uL Sodium Level 147 mmol/L Potassium Level 3.7 mmol/L Chloride Level 110 mmol/L Carbon Dioxide Level 30 mmol/L Anion Gap 7 Blood Urea Nitrogen 34 mg/dL Creatinine 1.1 mg/dL Estimated GFR (Cockcroft-Gault) 64.9 BUN/Creatinine Ratio 31 Glucose Level 116 mg/dL Calcium Level 9.2 mg/dL Total Bilirubin 0.6 mg/dL Aspartate Amino Transf (AST/SGOT) 31 U/L Alanine Aminotransferase (ALT/SGPT) 27 U/L Alkaline Phosphatase 56 U/L Total Protein 6.6 g/dL Albumin 2.7 g/dL Albumin/Globulin Ratio 0.7 Current Medications Medications (Trade) Dose Ordered Sig/Sonia Route PRN Reason Start Time Stop Time Status Last Admin Dose Admin Fenofibrate (Tricor) 48 mg DAILY PO 09/18/20 09:00 10/16/20 07:42 Fluticasone Propionate (Flonase) 2 spray DAILY NS 09/18/20 09:00 10/16/20 07:43 Metoprolol Succinate (Toprol Xl) 50 mg DAILY PO 09/18/20 09:00 10/16/20 07:42 Mirtazapine (Remeron) 15 mg QHS PO 09/17/20 21:00 10/15/20 20:30 Olanzapine (ZyPREXA ZYDIS) 5 mg DAILY PO 09/18/20 09:00 09/17/20 15:00 DC Pantoprazole Sodium (Protonix) 40 mg DAILY PO 09/18/20 09:00 10/16/20 07:42 Multivitamins/ Calcium (Thera-M Plus) 1 tab DAILY PO 09/18/20 09:00 10/16/20 07:42 Acetaminophen (Tylenol) 650 mg PRN Q6HRS PRN PO MILD PAIN / TEMP > 100.3'F 09/17/20 12:30 10/01/20 05:36 Multi-Ingredient Ointment (Analgesic [place]) 1 olu PRN QID PRN TP MUSCLE PAIN 09/17/20 12:30 09/23/20 21:23 Al Hydroxide/Mg Hydroxide (Mylanta Plus Xs) 15 ml PRN AFTMEALHC PRN PO DYSPEPSIA 09/17/20 12:30 Magnesium Hydroxide (Milk Of Magnesia) 2,400 mg PRN QHS PRN PO CONSTIPATION 09/17/20 12:30 Quetiapine Fumarate (SEROquel) 25 mg PRN Q2HRS PRN PO ANXIETY / AGITATION 09/17/20 14:45 10/13/20 08:56 Olanzapine (ZyPREXA) 2.5 mg TID PO 09/17/20 21:00 09/18/20 20:32 DC 09/18/20 14:07 Trazodone HCl (Desyrel) 50 mg PRN QHS PRN PO INSOMNIA, MAY REPEAT X1 09/17/20 14:45 10/14/20 19:48 Lidocaine HCl (Uro-Jet) 1 olu PRN DAILY PRN MM SEE ADMIN INSTRUCTIONS 09/18/20 17:15 Divalproex Sodium (Depakote Sprinkles) 250 mg BIDWMEALS PO 09/24/20 19:00 09/24/20 19:05 DC Divalproex Sodium (Depakote Sprinkles) 250 mg BIDWMEALS PO 09/25/20 09:00 10/01/20 21:26 DC 10/01/20 16:41 Cephalexin HCl (Keflex) 500 mg TID PO 09/26/20 21:00 10/03/20 21:00 DC 10/03/20 20:08 Divalproex Sodium (Depakote Sprinkles) 250 mg HS PO 09/28/20 21:00 10/01/20 21:26 DC 10/01/20 19:50 Lactobacillus Rhamnosus (Culturelle) 1 cap BID PO 09/30/20 21:00 10/16/20 07:42 Divalproex Sodium (Depakote Sprinkles) 375 mg BIDWMEALS PO 10/02/20 08:00 10/16/20 16:47 Divalproex Sodium (Depakote Sprinkles) 375 mg HS PO 10/02/20 21:00 10/06/20 18:01 DC 10/05/20 20:00 Sertraline HCl (Zoloft) 50 mg DAILY PO 10/03/20 09:00 10/09/20 11:51 DC 10/09/20 09:56 Non-Formulary Medication (Non Formulary Item (Prevident Toothpaste)) 1 ea BID PO 10/06/20 21:00 10/10/20 20:23 Divalproex Sodium (Depakote Sprinkles) 625 mg HS PO 10/06/20 21:00 10/15/20 20:30 Sertraline HCl (Zoloft) 75 mg DAILY PO 10/10/20 09:00 10/15/20 18:32 DC 10/15/20 07:56 Sertraline HCl (Zoloft) 100 mg DAILY PO 10/16/20 09:00 10/16/20 07:42 Buspirone HCl (Buspar) 5 mg 1200,1700 PO 10/16/20 17:00 10/16/20 16:46 Current Medications Medications (Trade) Dose Ordered Sig/Sonia Route PRN Reason Start Time Stop Time Status Last Admin Dose Admin Sertraline HCl (Zoloft) 100 mg DAILY PO 10/16/20 09:00 10/16/20 07:42 Buspirone HCl (Buspar) 5 mg 1200,1700 PO 10/16/20 17:00 10/16/20 16:46 I have reviewed the current psychotropics carefully including drug interactions. Risk benefit ratio favors no change other than as noted in my dictated progress note. Diagnosis: Problems: (1) Psychotic disorder (2) Impulse control disorder, unspecified (3) Vascular dementia with delusions (4) Anxiety disorder, unspecified (5) Vascular dementia with depression (6) Major neurocognitive disorder (7) Dementia in Alzheimer's disease with depression (8) Dementia in Alzheimer's disease with delusions (9) Dementia of the Alzheimer's type with early onset with behavioral disturbance (10) Major depressive disorder with psychotic features PRABHAKAR MOLINA MD Oct 17, 2020 08:50
[2020-10-17] MEDS: [UNRECOGNIZED DRUG - OTHER] PO SCH ×2 (09:00→20:51)
--- NOTE | 2020-10-17 09:09 | PDOC ---
Exam Note: Manish Note: This note is a late entry for 10/16/2020 covers elements not covered in my initial note. Subjective: The patient was reviewed in the morning of 10/16/2020 for a treatment team meeting with Tiarra Pendleton, Verna Prakash and Analisa (social work assistant), Codi, activity therapy and Karthik ULLOA, discussed and reviewed the chart. He slept 5 hours previous night. Previous night the patient was yelling, agitated, paranoid. He has attended 3 groups. I met with him in his room again in the evening. Review of Systems: Ambulation impaired in wheelchair. No CV, , pulmonary, eye, ENT system symptoms on review. Mental Status Exam: The patient is oriented to himself. Insight and judgment, recent and remote memory, attention and concentration, fund of knowledge is poor consistent with his diagnoses. Laboratory Data: Reviewed. Impression: Major neurocognitive disorder Alzheimer vascular with delusion, depression, behavioral disturbance. Major depressive disorder with psychotic features. Anxiety disorder unspecified. Impulse control disorder unspecified. Plan: Start BuSpar 5 mg 1 p.m., 5 p.m. since he frequently does not awaken till noon. Continue rest of the psychotropics unchanged. Assessment: Vital Signs/I&O: Vital Signs Date Time Temp Pulse Resp B/P (MAP) Pulse Ox O2 Delivery O2 Flow Rate FiO2 10/17/20 05:55 97.8 89 20 122/66 (84) 93 10/15/20 06:25 Room Air I & O 10/16/20 10/16/20 10/17/20 14:59 22:59 06:59 Intake Total 840 ml 320 ml Balance 840 ml 320 ml Labs: Laboratory Tests Test 10/17/20 06:10 White Blood Count 7.2 x10^3/uL (4.0-11.0) Red Blood Count 4.84 x10^6/uL (4.30-5.70) Hemoglobin 14.5 g/dL (13.0-17.5) Hematocrit 43.8 % (39.0-53.0) Mean Corpuscular Volume 91 fL (79-100) Mean Corpuscular Hemoglobin 30 pg (25-35) Mean Corpuscular Hemoglobin Concent 33 g/dL (31-37) Red Cell Distribution Width 13.8 % (11.5-14.5) Platelet Count 213 x10^3/uL (140-400) Neutrophils (%) (Auto) 61 % (31-73) Lymphocytes (%) (Auto) 19 % (24-48) L Monocytes (%) (Auto) 18 % (0-9) H Eosinophils (%) (Auto) 2 % (0-3) Basophils (%) (Auto) 1 % (0-3) Neutrophils # (Auto) 4.4 x10^3uL (1.8-7.7) Lymphocytes # (Auto) 1.4 x10^3/uL (1.0-4.8) Monocytes # (Auto) 1.3 x10^3/uL (0.0-1.1) H Eosinophils # (Auto) 0.1 x10^3/uL (0.0-0.7) Basophils # (Auto) 0.1 x10^3/uL (0.0-0.2) Sodium Level 147 mmol/L (136-145) H Potassium Level 3.7 mmol/L (3.5-5.1) Chloride Level 110 mmol/L (98-107) H Carbon Dioxide Level 30 mmol/L (21-32) Anion Gap 7 (6-14) Blood Urea Nitrogen 34 mg/dL (8-26) H Creatinine 1.1 mg/dL (0.7-1.3) Estimated GFR (Cockcroft-Gault) 64.9 BUN/Creatinine Ratio 31 (6-20) H Glucose Level 116 mg/dL (70-99) H Calcium Level 9.2 mg/dL (8.5-10.1) Total Bilirubin 0.6 mg/dL (0.2-1.0) Aspartate Amino Transferase (AST) 31 U/L (15-37) Alanine Aminotransferase (ALT) 27 U/L (16-63) Alkaline Phosphatase 56 U/L (46-116) Total Protein 6.6 g/dL (6.4-8.2) Albumin 2.7 g/dL (3.4-5.0) L Albumin/Globulin Ratio 0.7 (1.0-1.7) L Current Medications: Meds: Laboratory Tests Test 10/17/20 06:10 White Blood Count 7.2 x10^3/uL Red Blood Count 4.84 x10^6/uL Hemoglobin 14.5 g/dL Hematocrit 43.8 % Mean Corpuscular Volume 91 fL Mean Corpuscular Hemoglobin 30 pg Mean Corpuscular Hemoglobin Concent 33 g/dL Red Cell Distribution Width 13.8 % Platelet Count 213 x10^3/uL Neutrophils (%) (Auto) 61 % Lymphocytes (%) (Auto) 19 % Monocytes (%) (Auto) 18 % Eosinophils (%) (Auto) 2 % Basophils (%) (Auto) 1 % Neutrophils # (Auto) 4.4 x10^3uL Lymphocytes # (Auto) 1.4 x10^3/uL Monocytes # (Auto) 1.3 x10^3/uL Eosinophils # (Auto) 0.1 x10^3/uL Basophils # (Auto) 0.1 x10^3/uL Sodium Level 147 mmol/L Potassium Level 3.7 mmol/L Chloride Level 110 mmol/L Carbon Dioxide Level 30 mmol/L Anion Gap 7 Blood Urea Nitrogen 34 mg/dL Creatinine 1.1 mg/dL Estimated GFR (Cockcroft-Gault) 64.9 BUN/Creatinine Ratio 31 Glucose Level 116 mg/dL Calcium Level 9.2 mg/dL Total Bilirubin 0.6 mg/dL Aspartate Amino Transf (AST/SGOT) 31 U/L Alanine Aminotransferase (ALT/SGPT) 27 U/L Alkaline Phosphatase 56 U/L Total Protein 6.6 g/dL Albumin 2.7 g/dL Albumin/Globulin Ratio 0.7 Current Medications Medications (Trade) Dose Ordered Sig/Sonia Route PRN Reason Start Time Stop Time Status Last Admin Dose Admin Fenofibrate (Tricor) 48 mg DAILY PO 09/18/20 09:00 10/16/20 07:42 Fluticasone Propionate (Flonase) 2 spray DAILY NS 09/18/20 09:00 10/16/20 07:43 Metoprolol Succinate (Toprol Xl) 50 mg DAILY PO 09/18/20 09:00 10/16/20 07:42 Mirtazapine (Remeron) 15 mg QHS PO 09/17/20 21:00 10/15/20 20:30 Olanzapine (ZyPREXA ZYDIS) 5 mg DAILY PO 09/18/20 09:00 09/17/20 15:00 DC Pantoprazole Sodium (Protonix) 40 mg DAILY PO 09/18/20 09:00 10/16/20 07:42 Multivitamins/ Calcium (Thera-M Plus) 1 tab DAILY PO 09/18/20 09:00 10/16/20 07:42 Acetaminophen (Tylenol) 650 mg PRN Q6HRS PRN PO MILD PAIN / TEMP > 100.3'F 09/17/20 12:30 10/01/20 05:36 Multi-Ingredient Ointment (Analgesic [place]) 1 olu PRN QID PRN TP MUSCLE PAIN 09/17/20 12:30 09/23/20 21:23 Al Hydroxide/Mg Hydroxide (Mylanta Plus Xs) 15 ml PRN AFTMEALHC PRN PO DYSPEPSIA 09/17/20 12:30 Magnesium Hydroxide (Milk Of Magnesia) 2,400 mg PRN QHS PRN PO CONSTIPATION 09/17/20 12:30 Quetiapine Fumarate (SEROquel) 25 mg PRN Q2HRS PRN PO ANXIETY / AGITATION 09/17/20 14:45 10/13/20 08:56 Olanzapine (ZyPREXA) 2.5 mg TID PO 09/17/20 21:00 09/18/20 20:32 DC 09/18/20 14:07 Trazodone HCl (Desyrel) 50 mg PRN QHS PRN PO INSOMNIA, MAY REPEAT X1 09/17/20 14:45 10/14/20 19:48 Lidocaine HCl (Uro-Jet) 1 olu PRN DAILY PRN MM SEE ADMIN INSTRUCTIONS 09/18/20 17:15 Divalproex Sodium (Depakote Sprinkles) 250 mg BIDWMEALS PO 09/24/20 19:00 09/24/20 19:05 DC Divalproex Sodium (Depakote Sprinkles) 250 mg BIDWMEALS PO 09/25/20 09:00 10/01/20 21:26 DC 10/01/20 16:41 Cephalexin HCl (Keflex) 500 mg TID PO 09/26/20 21:00 10/03/20 21:00 DC 10/03/20 20:08 Divalproex Sodium (Depakote Sprinkles) 250 mg HS PO 09/28/20 21:00 10/01/20 21:26 DC 10/01/20 19:50 Lactobacillus Rhamnosus (Culturelle) 1 cap BID PO 09/30/20 21:00 10/16/20 07:42 Divalproex Sodium (Depakote Sprinkles) 375 mg BIDWMEALS PO 10/02/20 08:00 10/16/20 16:47 Divalproex Sodium (Depakote Sprinkles) 375 mg HS PO 10/02/20 21:00 10/06/20 18:01 DC 10/05/20 20:00 Sertraline HCl (Zoloft) 50 mg DAILY PO 10/03/20 09:00 10/09/20 11:51 DC 10/09/20 09:56 Non-Formulary Medication (Non Formulary Item (Prevident Toothpaste)) 1 ea BID PO 10/06/20 21:00 10/10/20 20:23 Divalproex Sodium (Depakote Sprinkles) 625 mg HS PO 10/06/20 21:00 10/15/20 20:30 Sertraline HCl (Zoloft) 75 mg DAILY PO 10/10/20 09:00 10/15/20 18:32 DC 10/15/20 07:56 Sertraline HCl (Zoloft) 100 mg DAILY PO 10/16/20 09:00 10/16/20 07:42 Buspirone HCl (Buspar) 5 mg 1200,1700 PO 10/16/20 17:00 10/16/20 16:46 Current Medications Medications (Trade) Dose Ordered Sig/Sonia Route PRN Reason Start Time Stop Time Status Last Admin Dose Admin Buspirone HCl (Buspar) 5 mg 1200,1700 PO 10/16/20 17:00 10/16/20 16:46 I have reviewed the current psychotropics carefully including drug interactions. Risk benefit ratio favors no change other than as noted in my dictated progress note. Diagnosis: Problems: (1) Psychotic disorder (2) Impulse control disorder, unspecified (3) Vascular dementia with delusions (4) Anxiety disorder, unspecified (5) Vascular dementia with depression (6) Major neurocognitive disorder (7) Dementia in Alzheimer's disease with depression (8) Dementia in Alzheimer's disease with delusions (9) Dementia of the Alzheimer's type with early onset with behavioral disturbance (10) Major depressive disorder with psychotic features PRABHAKAR MOLINA MD Oct 17, 2020 09:09
[2020-10-17] MEDS: SERTRALINE 50 MG TABLET. PO SCH (11:57)
[2020-10-17] MEDS: LACTOBACILLUS RHAMNOSUS GG 1 CAPSULE. PO SCH ×2 (11:57→20:51)
[2020-10-17] MEDS: FENOFIBRATE NANOCRYSTALLIZED 48 MG TABLET PO SCH (11:57)
[2020-10-17] MEDS: DIVALPROEX 125 MG CAP.SPRINK PO SCH ×3 (11:57→20:51)
[2020-10-17] MEDS: PANTOPRAZOLE 40 MG TABLET. PO SCH (11:57)
[2020-10-17] MEDS: MULTIVITAMIN with MINERAL TABLET. PO SCH (11:58)
[2020-10-17] MEDS: FLUTICASONE 50MCG/NASAL SPRAY 16GM BOTTLE. NS SCH (11:58)
[2020-10-17] MEDS: METOPROLOL SUCC 24HR ER 50 MG TAB.ER.24H. PO SCH (11:58)
[2020-10-17] MEDS: busPIRone 5 MG TABLET. PO SCH ×2 (12:00→16:32)
[2020-10-17 16:24] VITALS: BP 131/87
[2020-10-17] MEDS: MIRTAZAPINE 15 MG TABLET PO SCH (20:51)
--- NOTE | 2020-10-17 21:59 | PDOC ---
Exam Note: Manish Note: Please also refer to the separate dictated note~for this date of service dictated separately.~Patient seen individually. Discussed the patient with Nursing staff reviewed the chart.~Reviewed interim history and current functioning. Reviewed vital signs,~Labs/ Radiology~and current medications noted below. Continue current treatment with the changes noted in the dictated addendum note Assessment: Vital Signs/I&O: Vital Signs Date Time Temp Pulse Resp B/P (MAP) Pulse Ox O2 Delivery O2 Flow Rate FiO2 10/17/20 16:24 98.1 81 18 131/87 (102) 94 10/15/20 06:25 Room Air I & O 10/16/20 10/16/20 10/17/20 15:00 23:00 07:00 Intake Total 840 ml 320 ml Balance 840 ml 320 ml Labs: Laboratory Tests Test 10/17/20 06:10 White Blood Count 7.2 x10^3/uL (4.0-11.0) Red Blood Count 4.84 x10^6/uL (4.30-5.70) Hemoglobin 14.5 g/dL (13.0-17.5) Hematocrit 43.8 % (39.0-53.0) Mean Corpuscular Volume 91 fL (79-100) Mean Corpuscular Hemoglobin 30 pg (25-35) Mean Corpuscular Hemoglobin Concent 33 g/dL (31-37) Red Cell Distribution Width 13.8 % (11.5-14.5) Platelet Count 213 x10^3/uL (140-400) Neutrophils (%) (Auto) 61 % (31-73) Lymphocytes (%) (Auto) 19 % (24-48) L Monocytes (%) (Auto) 18 % (0-9) H Eosinophils (%) (Auto) 2 % (0-3) Basophils (%) (Auto) 1 % (0-3) Neutrophils # (Auto) 4.4 x10^3uL (1.8-7.7) Lymphocytes # (Auto) 1.4 x10^3/uL (1.0-4.8) Monocytes # (Auto) 1.3 x10^3/uL (0.0-1.1) H Eosinophils # (Auto) 0.1 x10^3/uL (0.0-0.7) Basophils # (Auto) 0.1 x10^3/uL (0.0-0.2) Sodium Level 147 mmol/L (136-145) H Potassium Level 3.7 mmol/L (3.5-5.1) Chloride Level 110 mmol/L (98-107) H Carbon Dioxide Level 30 mmol/L (21-32) Anion Gap 7 (6-14) Blood Urea Nitrogen 34 mg/dL (8-26) H Creatinine 1.1 mg/dL (0.7-1.3) Estimated GFR (Cockcroft-Gault) 64.9 BUN/Creatinine Ratio 31 (6-20) H Glucose Level 116 mg/dL (70-99) H Calcium Level 9.2 mg/dL (8.5-10.1) Total Bilirubin 0.6 mg/dL (0.2-1.0) Aspartate Amino Transferase (AST) 31 U/L (15-37) Alanine Aminotransferase (ALT) 27 U/L (16-63) Alkaline Phosphatase 56 U/L (46-116) Total Protein 6.6 g/dL (6.4-8.2) Albumin 2.7 g/dL (3.4-5.0) L Albumin/Globulin Ratio 0.7 (1.0-1.7) L Current Medications: Meds: Laboratory Tests Test 10/17/20 06:10 White Blood Count 7.2 x10^3/uL Red Blood Count 4.84 x10^6/uL Hemoglobin 14.5 g/dL Hematocrit 43.8 % Mean Corpuscular Volume 91 fL Mean Corpuscular Hemoglobin 30 pg Mean Corpuscular Hemoglobin Concent 33 g/dL Red Cell Distribution Width 13.8 % Platelet Count 213 x10^3/uL Neutrophils (%) (Auto) 61 % Lymphocytes (%) (Auto) 19 % Monocytes (%) (Auto) 18 % Eosinophils (%) (Auto) 2 % Basophils (%) (Auto) 1 % Neutrophils # (Auto) 4.4 x10^3uL Lymphocytes # (Auto) 1.4 x10^3/uL Monocytes # (Auto) 1.3 x10^3/uL Eosinophils # (Auto) 0.1 x10^3/uL Basophils # (Auto) 0.1 x10^3/uL Sodium Level 147 mmol/L Potassium Level 3.7 mmol/L Chloride Level 110 mmol/L Carbon Dioxide Level 30 mmol/L Anion Gap 7 Blood Urea Nitrogen 34 mg/dL Creatinine 1.1 mg/dL Estimated GFR (Cockcroft-Gault) 64.9 BUN/Creatinine Ratio 31 Glucose Level 116 mg/dL Calcium Level 9.2 mg/dL Total Bilirubin 0.6 mg/dL Aspartate Amino Transf (AST/SGOT) 31 U/L Alanine Aminotransferase (ALT/SGPT) 27 U/L Alkaline Phosphatase 56 U/L Total Protein 6.6 g/dL Albumin 2.7 g/dL Albumin/Globulin Ratio 0.7 Current Medications Medications (Trade) Dose Ordered Sig/Sonia Route PRN Reason Start Time Stop Time Status Last Admin Dose Admin Fenofibrate (Tricor) 48 mg DAILY PO 09/18/20 09:00 10/17/20 11:57 Fluticasone Propionate (Flonase) 2 spray DAILY NS 09/18/20 09:00 10/17/20 11:58 Metoprolol Succinate (Toprol Xl) 50 mg DAILY PO 09/18/20 09:00 10/17/20 11:58 Mirtazapine (Remeron) 15 mg QHS PO 09/17/20 21:00 10/17/20 20:51 Olanzapine (ZyPREXA ZYDIS) 5 mg DAILY PO 09/18/20 09:00 09/17/20 15:00 DC Pantoprazole Sodium (Protonix) 40 mg DAILY PO 09/18/20 09:00 10/17/20 11:57 Multivitamins/ Calcium (Thera-M Plus) 1 tab DAILY PO 09/18/20 09:00 10/17/20 11:58 Acetaminophen (Tylenol) 650 mg PRN Q6HRS PRN PO MILD PAIN / TEMP > 100.3'F 09/17/20 12:30 10/01/20 05:36 Multi-Ingredient Ointment (Analgesic [place]) 1 olu PRN QID PRN TP MUSCLE PAIN 09/17/20 12:30 09/23/20 21:23 Al Hydroxide/Mg Hydroxide (Mylanta Plus Xs) 15 ml PRN AFTMEALHC PRN PO DYSPEPSIA 09/17/20 12:30 Magnesium Hydroxide (Milk Of Magnesia) 2,400 mg PRN QHS PRN PO CONSTIPATION 09/17/20 12:30 Quetiapine Fumarate (SEROquel) 25 mg PRN Q2HRS PRN PO ANXIETY / AGITATION 09/17/20 14:45 10/13/20 08:56 Olanzapine (ZyPREXA) 2.5 mg TID PO 09/17/20 21:00 09/18/20 20:32 DC 09/18/20 14:07 Trazodone HCl (Desyrel) 50 mg PRN QHS PRN PO INSOMNIA, MAY REPEAT X1 09/17/20 14:45 10/14/20 19:48 Lidocaine HCl (Uro-Jet) 1 olu PRN DAILY PRN MM SEE ADMIN INSTRUCTIONS 09/18/20 17:15 Divalproex Sodium (Depakote Sprinkles) 250 mg BIDWMEALS PO 09/24/20 19:00 09/24/20 19:05 DC Divalproex Sodium (Depakote Sprinkles) 250 mg BIDWMEALS PO 09/25/20 09:00 10/01/20 21:26 DC 10/01/20 16:41 Cephalexin HCl (Keflex) 500 mg TID PO 09/26/20 21:00 10/03/20 21:00 DC 10/03/20 20:08 Divalproex Sodium (Depakote Sprinkles) 250 mg HS PO 09/28/20 21:00 10/01/20 21:26 DC 10/01/20 19:50 Lactobacillus Rhamnosus (Culturelle) 1 cap BID PO 09/30/20 21:00 10/17/20 20:51 Divalproex Sodium (Depakote Sprinkles) 375 mg BIDWMEALS PO 10/02/20 08:00 10/17/20 16:32 Divalproex Sodium (Depakote Sprinkles) 375 mg HS PO 10/02/20 21:00 10/06/20 18:01 DC 10/05/20 20:00 Sertraline HCl (Zoloft) 50 mg DAILY PO 10/03/20 09:00 10/09/20 11:51 DC 10/09/20 09:56 Non-Formulary Medication (Non Formulary Item (Prevident Toothpaste)) 1 ea BID PO 10/06/20 21:00 10/10/20 20:23 Divalproex Sodium (Depakote Sprinkles) 625 mg HS PO 10/06/20 21:00 10/17/20 20:51 Sertraline HCl (Zoloft) 75 mg DAILY PO 10/10/20 09:00 10/15/20 18:32 DC 10/15/20 07:56 Sertraline HCl (Zoloft) 100 mg DAILY PO 10/16/20 09:00 10/17/20 11:57 Buspirone HCl (Buspar) 5 mg 1200,1700 PO 10/16/20 17:00 10/17/20 16:32 I have reviewed the current psychotropics carefully including drug interactions. Risk benefit ratio favors no change other than as noted in my dictated progress note. Diagnosis: Problems: (1) Impulse control disorder, unspecified (2) Vascular dementia with delusions (3) Anxiety disorder, unspecified (4) Vascular dementia with depression (5) Major neurocognitive disorder (6) Dementia in Alzheimer's disease with depression (7) Dementia in Alzheimer's disease with delusions (8) Dementia of the Alzheimer's type with early onset with behavioral disturbance (9) Major depressive disorder with psychotic features PRABHAKAR MOLINA MD Oct 17, 2020 21:59
[2020-10-18 06:14] VITALS: BP 122/79
--- NOTE | 2020-10-18 08:50 | PDOC ---
Exam Note: Manish Note: This note is a late entry for 10/17/2020 covers elements not covered in my initial note. Subjective: The patient was seen individually in the evening of 10/17/2020 with Karthik ULLOA, discussed and reviewed the chart. He slept 9 hours previous night. The patient was somewhat sedated previous night. His h.s. meds were held. health support specialist he was combative with cares. He slept in late, resistive with his showers, took it later. Overall he is better, less agitated. Shortly after my round, he slipped himself on the floor. No injuries were noted. Review of Systems: Ambulation impaired in wheelchair. No CV, , pulmonary, eye, ENT system symptoms on review. Mental Status Exam: The patient is oriented to himself. Insight and judgment, recent and remote memory, attention and concentration, fund of knowledge is poor consistent with his diagnoses. Laboratory Data: Reviewed. Impression: Major neurocognitive disorder Alzheimer vascular with delusion, depression, behavioral disturbance. Major depressive disorder with psychotic features. Anxiety disorder unspecified. Impulse control disorder unspecified. Plan: Continue rest of the psychotropics unchanged. Assessment: Vital Signs/I&O: Vital Signs Date Time Temp Pulse Resp B/P (MAP) Pulse Ox O2 Delivery O2 Flow Rate FiO2 10/18/20 06:14 98.6 87 18 122/79 (93) 98 10/15/20 06:25 Room Air I & O 10/17/20 10/17/20 10/18/20 15:00 23:00 07:00 Intake Total 360 ml 120 ml Balance 360 ml 120 ml Current Medications: Meds: Current Medications Medications (Trade) Dose Ordered Sig/Sonia Route PRN Reason Start Time Stop Time Status Last Admin Dose Admin Fenofibrate (Tricor) 48 mg DAILY PO 09/18/20 09:00 10/17/20 11:57 Fluticasone Propionate (Flonase) 2 spray DAILY NS 09/18/20 09:00 10/17/20 11:58 Metoprolol Succinate (Toprol Xl) 50 mg DAILY PO 09/18/20 09:00 10/17/20 11:58 Mirtazapine (Remeron) 15 mg QHS PO 09/17/20 21:00 10/17/20 20:51 Olanzapine (ZyPREXA ZYDIS) 5 mg DAILY PO 09/18/20 09:00 09/17/20 15:00 DC Pantoprazole Sodium (Protonix) 40 mg DAILY PO 09/18/20 09:00 10/17/20 11:57 Multivitamins/ Calcium (Thera-M Plus) 1 tab DAILY PO 09/18/20 09:00 10/17/20 11:58 Acetaminophen (Tylenol) 650 mg PRN Q6HRS PRN PO MILD PAIN / TEMP > 100.3'F 09/17/20 12:30 10/01/20 05:36 Multi-Ingredient Ointment (Analgesic [place]) 1 olu PRN QID PRN TP MUSCLE PAIN 09/17/20 12:30 09/23/20 21:23 Al Hydroxide/Mg Hydroxide (Mylanta Plus Xs) 15 ml PRN AFTMEALHC PRN PO DYSPEPSIA 09/17/20 12:30 Magnesium Hydroxide (Milk Of Magnesia) 2,400 mg PRN QHS PRN PO CONSTIPATION 09/17/20 12:30 Quetiapine Fumarate (SEROquel) 25 mg PRN Q2HRS PRN PO ANXIETY / AGITATION 09/17/20 14:45 10/13/20 08:56 Olanzapine (ZyPREXA) 2.5 mg TID PO 09/17/20 21:00 09/18/20 20:32 DC 09/18/20 14:07 Trazodone HCl (Desyrel) 50 mg PRN QHS PRN PO INSOMNIA, MAY REPEAT X1 09/17/20 14:45 10/14/20 19:48 Lidocaine HCl (Uro-Jet) 1 olu PRN DAILY PRN MM SEE ADMIN INSTRUCTIONS 09/18/20 17:15 Divalproex Sodium (Depakote Sprinkles) 250 mg BIDWMEALS PO 09/24/20 19:00 09/24/20 19:05 DC Divalproex Sodium (Depakote Sprinkles) 250 mg BIDWMEALS PO 09/25/20 09:00 10/01/20 21:26 DC 10/01/20 16:41 Cephalexin HCl (Keflex) 500 mg TID PO 09/26/20 21:00 10/03/20 21:00 DC 10/03/20 20:08 Divalproex Sodium (Depakote Sprinkles) 250 mg HS PO 09/28/20 21:00 10/01/20 21:26 DC 10/01/20 19:50 Lactobacillus Rhamnosus (Culturelle) 1 cap BID PO 09/30/20 21:00 10/17/20 20:51 Divalproex Sodium (Depakote Sprinkles) 375 mg BIDWMEALS PO 10/02/20 08:00 10/17/20 16:32 Divalproex Sodium (Depakote Sprinkles) 375 mg HS PO 10/02/20 21:00 10/06/20 18:01 DC 10/05/20 20:00 Sertraline HCl (Zoloft) 50 mg DAILY PO 10/03/20 09:00 10/09/20 11:51 DC 10/09/20 09:56 Non-Formulary Medication (Non Formulary Item (Prevident Toothpaste)) 1 ea BID PO 10/06/20 21:00 10/10/20 20:23 Divalproex Sodium (Depakote Sprinkles) 625 mg HS PO 10/06/20 21:00 10/17/20 20:51 Sertraline HCl (Zoloft) 75 mg DAILY PO 10/10/20 09:00 10/15/20 18:32 DC 10/15/20 07:56 Sertraline HCl (Zoloft) 100 mg DAILY PO 10/16/20 09:00 10/17/20 11:57 Buspirone HCl (Buspar) 5 mg 1200,1700 PO 10/16/20 17:00 10/17/20 16:32 I have reviewed the current psychotropics carefully including drug interactions. Risk benefit ratio favors no change other than as noted in my dictated progress note. Diagnosis: Problems: (1) Psychotic disorder (2) Impulse control disorder, unspecified (3) Vascular dementia with delusions (4) Anxiety disorder, unspecified (5) Vascular dementia with depression (6) Major neurocognitive disorder (7) Dementia in Alzheimer's disease with depression (8) Dementia in Alzheimer's disease with delusions (9) Dementia of the Alzheimer's type with early onset with behavioral disturbance (10) Major depressive disorder with psychotic features PRABHAKAR MOLINA MD Oct 18, 2020 08:50
[2020-10-18] MEDS: [UNRECOGNIZED DRUG - OTHER] PO SCH ×2 (09:00→20:31)
[2020-10-18] MEDS: FLUTICASONE 50MCG/NASAL SPRAY 16GM BOTTLE. NS SCH (09:00)
[2020-10-18] MEDS: METOPROLOL SUCC 24HR ER 50 MG TAB.ER.24H. PO SCH (12:23)
[2020-10-18] MEDS: DIVALPROEX 125 MG CAP.SPRINK PO SCH ×3 (12:23→20:31)
[2020-10-18] MEDS: LACTOBACILLUS RHAMNOSUS GG 1 CAPSULE. PO SCH ×2 (12:23→20:31)
[2020-10-18] MEDS: MULTIVITAMIN with MINERAL TABLET. PO SCH (12:23)
[2020-10-18] MEDS: PANTOPRAZOLE 40 MG TABLET. PO SCH (12:23)
[2020-10-18] MEDS: FENOFIBRATE NANOCRYSTALLIZED 48 MG TABLET PO SCH (12:24)
[2020-10-18] MEDS: SERTRALINE 50 MG TABLET. PO SCH (12:24)
[2020-10-18] MEDS: busPIRone 5 MG TABLET. PO SCH ×2 (12:26→17:48)
[2020-10-18 16:10] VITALS: BP 115/74
[2020-10-18] MEDS: MIRTAZAPINE 15 MG TABLET PO SCH (20:30)
--- NOTE | 2020-10-18 21:56 | PDOC ---
Exam Note: Manish Note: Please also refer to the separate dictated note~for this date of service dictated separately.~Patient seen individually. Discussed the patient with Nursing staff reviewed the chart.~Reviewed interim history and current functioning. Reviewed vital signs,~Labs/ Radiology~and current medications noted below. Continue current treatment with the changes noted in the dictated addendum note Assessment: Vital Signs/I&O: Vital Signs Date Time Temp Pulse Resp B/P (MAP) Pulse Ox O2 Delivery O2 Flow Rate FiO2 10/18/20 16:10 98.8 85 20 115/74 (88) 96 10/15/20 06:25 Room Air I & O 10/17/20 10/17/20 10/18/20 15:00 23:00 07:00 Intake Total 360 ml 120 ml Balance 360 ml 120 ml Current Medications: Meds: Current Medications Medications (Trade) Dose Ordered Sig/Sonia Route PRN Reason Start Time Stop Time Status Last Admin Dose Admin Fenofibrate (Tricor) 48 mg DAILY PO 09/18/20 09:00 10/18/20 12:24 Fluticasone Propionate (Flonase) 2 spray DAILY NS 09/18/20 09:00 10/17/20 11:58 Metoprolol Succinate (Toprol Xl) 50 mg DAILY PO 09/18/20 09:00 10/18/20 12:23 Mirtazapine (Remeron) 15 mg QHS PO 09/17/20 21:00 10/18/20 20:30 Olanzapine (ZyPREXA ZYDIS) 5 mg DAILY PO 09/18/20 09:00 09/17/20 15:00 DC Pantoprazole Sodium (Protonix) 40 mg DAILY PO 09/18/20 09:00 10/18/20 12:23 Multivitamins/ Calcium (Thera-M Plus) 1 tab DAILY PO 09/18/20 09:00 10/18/20 12:23 Acetaminophen (Tylenol) 650 mg PRN Q6HRS PRN PO MILD PAIN / TEMP > 100.3'F 09/17/20 12:30 10/01/20 05:36 Multi-Ingredient Ointment (Analgesic [place]) 1 olu PRN QID PRN TP MUSCLE PAIN 09/17/20 12:30 09/23/20 21:23 Al Hydroxide/Mg Hydroxide (Mylanta Plus Xs) 15 ml PRN AFTMEALHC PRN PO DYSPEPSIA 09/17/20 12:30 Magnesium Hydroxide (Milk Of Magnesia) 2,400 mg PRN QHS PRN PO CONSTIPATION 09/17/20 12:30 Quetiapine Fumarate (SEROquel) 25 mg PRN Q2HRS PRN PO ANXIETY / AGITATION 09/17/20 14:45 10/13/20 08:56 Olanzapine (ZyPREXA) 2.5 mg TID PO 09/17/20 21:00 09/18/20 20:32 DC 09/18/20 14:07 Trazodone HCl (Desyrel) 50 mg PRN QHS PRN PO INSOMNIA, MAY REPEAT X1 09/17/20 14:45 10/14/20 19:48 Lidocaine HCl (Uro-Jet) 1 olu PRN DAILY PRN MM SEE ADMIN INSTRUCTIONS 09/18/20 17:15 Divalproex Sodium (Depakote Sprinkles) 250 mg BIDWMEALS PO 09/24/20 19:00 09/24/20 19:05 DC Divalproex Sodium (Depakote Sprinkles) 250 mg BIDWMEALS PO 09/25/20 09:00 10/01/20 21:26 DC 10/01/20 16:41 Cephalexin HCl (Keflex) 500 mg TID PO 09/26/20 21:00 10/03/20 21:00 DC 10/03/20 20:08 Divalproex Sodium (Depakote Sprinkles) 250 mg HS PO 09/28/20 21:00 10/01/20 21:26 DC 10/01/20 19:50 Lactobacillus Rhamnosus (Culturelle) 1 cap BID PO 09/30/20 21:00 10/18/20 20:31 Divalproex Sodium (Depakote Sprinkles) 375 mg BIDWMEALS PO 10/02/20 08:00 10/18/20 17:48 Divalproex Sodium (Depakote Sprinkles) 375 mg HS PO 10/02/20 21:00 10/06/20 18:01 DC 10/05/20 20:00 Sertraline HCl (Zoloft) 50 mg DAILY PO 10/03/20 09:00 10/09/20 11:51 DC 10/09/20 09:56 Non-Formulary Medication (Non Formulary Item (Prevident Toothpaste)) 1 ea BID PO 10/06/20 21:00 10/10/20 20:23 Divalproex Sodium (Depakote Sprinkles) 625 mg HS PO 10/06/20 21:00 10/18/20 20:31 Sertraline HCl (Zoloft) 75 mg DAILY PO 10/10/20 09:00 10/15/20 18:32 DC 10/15/20 07:56 Sertraline HCl (Zoloft) 100 mg DAILY PO 10/16/20 09:00 10/18/20 12:24 Buspirone HCl (Buspar) 5 mg 1200,1700 PO 10/16/20 17:00 10/18/20 17:48 I have reviewed the current psychotropics carefully including drug interactions. Risk benefit ratio favors no change other than as noted in my dictated progress note. Diagnosis: Problems: (1) Impulse control disorder, unspecified (2) Vascular dementia with delusions (3) Anxiety disorder, unspecified (4) Vascular dementia with depression (5) Major neurocognitive disorder (6) Dementia in Alzheimer's disease with depression (7) Dementia in Alzheimer's disease with delusions (8) Dementia of the Alzheimer's type with early onset with behavioral disturbance (9) Major depressive disorder with psychotic features PRABHAKAR MOLINA MD Oct 18, 2020 21:56
[2020-10-19 05:44] VITALS: BP 134/86
[2020-10-19] MEDS: FLUTICASONE 50MCG/NASAL SPRAY 16GM BOTTLE. NS SCH (09:00)
[2020-10-19] MEDS: [UNRECOGNIZED DRUG - OTHER] PO SCH ×2 (09:00→20:29)
[2020-10-19] MEDS: PANTOPRAZOLE 40 MG TABLET. PO SCH (13:48)
[2020-10-19] MEDS: FENOFIBRATE NANOCRYSTALLIZED 48 MG TABLET PO SCH (13:48)
[2020-10-19] MEDS: LACTOBACILLUS RHAMNOSUS GG 1 CAPSULE. PO SCH ×2 (13:49→20:27)
[2020-10-19] MEDS: SERTRALINE 50 MG TABLET. PO SCH (13:49)
[2020-10-19] MEDS: DIVALPROEX 125 MG CAP.SPRINK PO SCH ×3 (13:49→20:27)
[2020-10-19] MEDS: METOPROLOL SUCC 24HR ER 50 MG TAB.ER.24H. PO SCH (13:49)
[2020-10-19] MEDS: MULTIVITAMIN with MINERAL TABLET. PO SCH (13:49)
[2020-10-19] MEDS: busPIRone 5 MG TABLET. PO SCH ×2 (13:51→16:03)
[2020-10-19 15:39] VITALS: BP 107/74
[2020-10-19] MEDS: MIRTAZAPINE 15 MG TABLET PO SCH (20:27)
--- NOTE | 2020-10-19 22:02 | PDOC ---
Exam Note: Manish Note: This note is a late entry for 10/18/2020 covers elements not covered in my initial note. Subjective: The patient was seen individually in the evening of 10/18/2020 with Karthik ULLOA, discussed and reviewed the chart. He slept 7 hours previous night. The patient was pleasant previous night. He slept in, in the morning and intermittently has trouble feeding himself. 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 He has not been aggressive. He remains confused. Review of Systems: Ambulation impaired in wheelchair. No CV, , pulmonary, eye, ENT system symptoms on review. Mental Status Exam: The patient is oriented to himself. Insight and judgment, recent and remote memory, attention and concentration, fund of knowledge is poor consistent with his diagnoses. Laboratory Data: Reviewed. Impression: Major neurocognitive disorder Alzheimer vascular with delusion, depression, behavioral disturbance. Major depressive disorder with psychotic features. Anxiety disorder unspecified. Impulse control disorder unspecified. Plan: Continue rest of the psychotropics unchanged. We will make further adjustments in his psychotropics as indicated but we are trying to avoid atypical antipsychotics since these have caused urinary retention in the past, which was quite significant. Assessment: Vital Signs/I&O: Vital Signs Date Time Temp Pulse Resp B/P (MAP) Pulse Ox O2 Delivery O2 Flow Rate FiO2 10/19/20 15:39 97.3 82 16 107/74 (85) 92 10/15/20 06:25 Room Air I & O 10/18/20 10/18/20 10/19/20 15:00 23:00 07:00 Intake Total 120 ml 240 ml Balance 120 ml 240 ml Current Medications: Meds: Current Medications Medications (Trade) Dose Ordered Sig/Sonia Route PRN Reason Start Time Stop Time Status Last Admin Dose Admin Fenofibrate (Tricor) 48 mg DAILY PO 09/18/20 09:00 10/19/20 13:48 Fluticasone Propionate (Flonase) 2 spray DAILY NS 09/18/20 09:00 10/19/20 09:00 Metoprolol Succinate (Toprol Xl) 50 mg DAILY PO 09/18/20 09:00 10/19/20 13:49 Mirtazapine (Remeron) 15 mg QHS PO 09/17/20 21:00 10/19/20 20:27 Olanzapine (ZyPREXA ZYDIS) 5 mg DAILY PO 09/18/20 09:00 09/17/20 15:00 DC Pantoprazole Sodium (Protonix) 40 mg DAILY PO 09/18/20 09:00 10/19/20 13:48 Multivitamins/ Calcium (Thera-M Plus) 1 tab DAILY PO 09/18/20 09:00 10/19/20 13:49 Acetaminophen (Tylenol) 650 mg PRN Q6HRS PRN PO MILD PAIN / TEMP > 100.3'F 09/17/20 12:30 10/01/20 05:36 Multi-Ingredient Ointment (Analgesic [place]) 1 olu PRN QID PRN TP MUSCLE PAIN 09/17/20 12:30 09/23/20 21:23 Al Hydroxide/Mg Hydroxide (Mylanta Plus Xs) 15 ml PRN AFTMEALHC PRN PO DYSPEPSIA 09/17/20 12:30 Magnesium Hydroxide (Milk Of Magnesia) 2,400 mg PRN QHS PRN PO CONSTIPATION 09/17/20 12:30 Quetiapine Fumarate (SEROquel) 25 mg PRN Q2HRS PRN PO ANXIETY / AGITATION 09/17/20 14:45 10/13/20 08:56 Olanzapine (ZyPREXA) 2.5 mg TID PO 09/17/20 21:00 09/18/20 20:32 DC 09/18/20 14:07 Trazodone HCl (Desyrel) 50 mg PRN QHS PRN PO INSOMNIA, MAY REPEAT X1 09/17/20 14:45 10/14/20 19:48 Lidocaine HCl (Uro-Jet) 1 olu PRN DAILY PRN MM SEE ADMIN INSTRUCTIONS 09/18/20 17:15 Divalproex Sodium (Depakote Sprinkles) 250 mg BIDWMEALS PO 09/24/20 19:00 09/24/20 19:05 DC Divalproex Sodium (Depakote Sprinkles) 250 mg BIDWMEALS PO 09/25/20 09:00 10/01/20 21:26 DC 10/01/20 16:41 Cephalexin HCl (Keflex) 500 mg TID PO 09/26/20 21:00 10/03/20 21:00 DC 10/03/20 20:08 Divalproex Sodium (Depakote Sprinkles) 250 mg HS PO 09/28/20 21:00 10/01/20 21:26 DC 10/01/20 19:50 Lactobacillus Rhamnosus (Culturelle) 1 cap BID PO 09/30/20 21:00 10/19/20 20:27 Divalproex Sodium (Depakote Sprinkles) 375 mg BIDWMEALS PO 10/02/20 08:00 10/19/20 16:03 Divalproex Sodium (Depakote Sprinkles) 375 mg HS PO 10/02/20 21:00 10/06/20 18:01 DC 10/05/20 20:00 Sertraline HCl (Zoloft) 50 mg DAILY PO 10/03/20 09:00 10/09/20 11:51 DC 10/09/20 09:56 Non-Formulary Medication (Non Formulary Item (Prevident Toothpaste)) 1 ea BID PO 10/06/20 21:00 10/10/20 20:23 Divalproex Sodium (Depakote Sprinkles) 625 mg HS PO 10/06/20 21:00 10/19/20 20:27 Sertraline HCl (Zoloft) 75 mg DAILY PO 10/10/20 09:00 10/15/20 18:32 DC 10/15/20 07:56 Sertraline HCl (Zoloft) 100 mg DAILY PO 10/16/20 09:00 10/19/20 13:49 Buspirone HCl (Buspar) 5 mg 1200,1700 PO 10/16/20 17:00 10/19/20 16:03 I have reviewed the current psychotropics carefully including drug interactions. Risk benefit ratio favors no change other than as noted in my dictated progress note. Diagnosis: Problems: (1) Impulse control disorder, unspecified (2) Vascular dementia with delusions (3) Anxiety disorder, unspecified (4) Vascular dementia with depression (5) Major neurocognitive disorder (6) Dementia in Alzheimer's disease with depression (7) Dementia in Alzheimer's disease with delusions (8) Dementia of the Alzheimer's type with early onset with behavioral disturbance (9) Major depressive disorder with psychotic features PRABHAKAR MOLINA MD Oct 19, 2020 22:02
--- NOTE | 2020-10-19 22:03 | PDOC ---
Exam Note: Manish Note: Please also refer to the separate dictated note~for this date of service dictated separately.~Patient seen individually. Discussed the patient with Nursing staff reviewed the chart.~Reviewed interim history and current functioning. Reviewed vital signs,~Labs/ Radiology~and current medications noted below. Continue current treatment with the changes noted in the dictated addendum note Assessment: Vital Signs/I&O: Vital Signs Date Time Temp Pulse Resp B/P (MAP) Pulse Ox O2 Delivery O2 Flow Rate FiO2 10/19/20 15:39 97.3 82 16 107/74 (85) 92 10/15/20 06:25 Room Air I & O 10/18/20 10/18/20 10/19/20 15:00 23:00 07:00 Intake Total 120 ml 240 ml Balance 120 ml 240 ml Current Medications: Meds: Current Medications Medications (Trade) Dose Ordered Sig/Sonia Route PRN Reason Start Time Stop Time Status Last Admin Dose Admin Fenofibrate (Tricor) 48 mg DAILY PO 09/18/20 09:00 10/19/20 13:48 Fluticasone Propionate (Flonase) 2 spray DAILY NS 09/18/20 09:00 10/19/20 09:00 Metoprolol Succinate (Toprol Xl) 50 mg DAILY PO 09/18/20 09:00 10/19/20 13:49 Mirtazapine (Remeron) 15 mg QHS PO 09/17/20 21:00 10/19/20 20:27 Olanzapine (ZyPREXA ZYDIS) 5 mg DAILY PO 09/18/20 09:00 09/17/20 15:00 DC Pantoprazole Sodium (Protonix) 40 mg DAILY PO 09/18/20 09:00 10/19/20 13:48 Multivitamins/ Calcium (Thera-M Plus) 1 tab DAILY PO 09/18/20 09:00 10/19/20 13:49 Acetaminophen (Tylenol) 650 mg PRN Q6HRS PRN PO MILD PAIN / TEMP > 100.3'F 09/17/20 12:30 10/01/20 05:36 Multi-Ingredient Ointment (Analgesic [place]) 1 olu PRN QID PRN TP MUSCLE PAIN 09/17/20 12:30 09/23/20 21:23 Al Hydroxide/Mg Hydroxide (Mylanta Plus Xs) 15 ml PRN AFTMEALHC PRN PO DYSPEPSIA 09/17/20 12:30 Magnesium Hydroxide (Milk Of Magnesia) 2,400 mg PRN QHS PRN PO CONSTIPATION 09/17/20 12:30 Quetiapine Fumarate (SEROquel) 25 mg PRN Q2HRS PRN PO ANXIETY / AGITATION 09/17/20 14:45 10/13/20 08:56 Olanzapine (ZyPREXA) 2.5 mg TID PO 09/17/20 21:00 09/18/20 20:32 DC 09/18/20 14:07 Trazodone HCl (Desyrel) 50 mg PRN QHS PRN PO INSOMNIA, MAY REPEAT X1 09/17/20 14:45 10/14/20 19:48 Lidocaine HCl (Uro-Jet) 1 olu PRN DAILY PRN MM SEE ADMIN INSTRUCTIONS 09/18/20 17:15 Divalproex Sodium (Depakote Sprinkles) 250 mg BIDWMEALS PO 09/24/20 19:00 09/24/20 19:05 DC Divalproex Sodium (Depakote Sprinkles) 250 mg BIDWMEALS PO 09/25/20 09:00 10/01/20 21:26 DC 10/01/20 16:41 Cephalexin HCl (Keflex) 500 mg TID PO 09/26/20 21:00 10/03/20 21:00 DC 10/03/20 20:08 Divalproex Sodium (Depakote Sprinkles) 250 mg HS PO 09/28/20 21:00 10/01/20 21:26 DC 10/01/20 19:50 Lactobacillus Rhamnosus (Culturelle) 1 cap BID PO 09/30/20 21:00 10/19/20 20:27 Divalproex Sodium (Depakote Sprinkles) 375 mg BIDWMEALS PO 10/02/20 08:00 10/19/20 16:03 Divalproex Sodium (Depakote Sprinkles) 375 mg HS PO 10/02/20 21:00 10/06/20 18:01 DC 10/05/20 20:00 Sertraline HCl (Zoloft) 50 mg DAILY PO 10/03/20 09:00 10/09/20 11:51 DC 10/09/20 09:56 Non-Formulary Medication (Non Formulary Item (Prevident Toothpaste)) 1 ea BID PO 10/06/20 21:00 10/10/20 20:23 Divalproex Sodium (Depakote Sprinkles) 625 mg HS PO 10/06/20 21:00 10/19/20 20:27 Sertraline HCl (Zoloft) 75 mg DAILY PO 10/10/20 09:00 10/15/20 18:32 DC 10/15/20 07:56 Sertraline HCl (Zoloft) 100 mg DAILY PO 10/16/20 09:00 10/19/20 13:49 Buspirone HCl (Buspar) 5 mg 1200,1700 PO 10/16/20 17:00 10/19/20 16:03 I have reviewed the current psychotropics carefully including drug interactions. Risk benefit ratio favors no change other than as noted in my dictated progress note. Diagnosis: Problems: (1) Impulse control disorder, unspecified (2) Vascular dementia with delusions (3) Anxiety disorder, unspecified (4) Vascular dementia with depression (5) Major neurocognitive disorder (6) Dementia in Alzheimer's disease with depression (7) Dementia in Alzheimer's disease with delusions (8) Dementia of the Alzheimer's type with early onset with behavioral disturbance (9) Major depressive disorder with psychotic features PRABHAKAR MOLINA MD Oct 19, 2020 22:03
[2020-10-20 06:05] VITALS: BP 138/79
[2020-10-20] MEDS: [UNRECOGNIZED DRUG - OTHER] PO SCH ×2 (09:00→20:34)
--- NOTE | 2020-10-20 09:10 | PDOC ---
Exam Note: Manish Note: This note is a late entry for 10/19/2020 covers elements not covered in my initial note. Subjective: The patient was seen individually in the evening of 10/19/2020 with Jessica ULLOA, discussed and reviewed the chart. He slept 6-1/4 hours previous night. The patient slept in until 1 p.m. which is typical for him. He is combative, resistive with medications, dosing after that. He has lost 15 pounds weight since admission. We will seek suggestions from dietary for this. Review of Systems: Ambulation impaired in wheelchair. No CV, , pulmonary, eye, ENT system symptoms on review. Mental Status Exam: The patient is oriented to himself. He was pleasant, interactive, not aggressive, trying to shake my hand. Insight and judgment, recent and remote memory, attention and concentration, fund of knowledge is poor consistent with his diagnoses. Laboratory Data: Reviewed. Impression: Major neurocognitive disorder Alzheimer vascular with delusion, depression, behavioral disturbance. Major depressive disorder with psychotic features. Anxiety disorder unspecified. Impulse control disorder unspecified. Plan: Continue rest of the psychotropics unchanged. Assessment: Vital Signs/I&O: Vital Signs Date Time Temp Pulse Resp B/P (MAP) Pulse Ox O2 Delivery O2 Flow Rate FiO2 10/20/20 06:05 98.7 87 18 138/79 (98) 96 Room Air I & O 10/19/20 10/19/20 10/20/20 15:00 23:00 07:00 Intake Total 240 ml 240 ml Balance 240 ml 240 ml Current Medications: Meds: Current Medications Medications (Trade) Dose Ordered Sig/Sonia Route PRN Reason Start Time Stop Time Status Last Admin Dose Admin Fenofibrate (Tricor) 48 mg DAILY PO 09/18/20 09:00 10/19/20 13:48 Fluticasone Propionate (Flonase) 2 spray DAILY NS 09/18/20 09:00 10/19/20 09:00 Metoprolol Succinate (Toprol Xl) 50 mg DAILY PO 09/18/20 09:00 10/19/20 13:49 Mirtazapine (Remeron) 15 mg QHS PO 09/17/20 21:00 10/19/20 20:27 Olanzapine (ZyPREXA ZYDIS) 5 mg DAILY PO 09/18/20 09:00 09/17/20 15:00 DC Pantoprazole Sodium (Protonix) 40 mg DAILY PO 09/18/20 09:00 10/19/20 13:48 Multivitamins/ Calcium (Thera-M Plus) 1 tab DAILY PO 09/18/20 09:00 10/19/20 13:49 Acetaminophen (Tylenol) 650 mg PRN Q6HRS PRN PO MILD PAIN / TEMP > 100.3'F 09/17/20 12:30 10/01/20 05:36 Multi-Ingredient Ointment (Analgesic [place]) 1 olu PRN QID PRN TP MUSCLE PAIN 09/17/20 12:30 09/23/20 21:23 Al Hydroxide/Mg Hydroxide (Mylanta Plus Xs) 15 ml PRN AFTMEALHC PRN PO DYSPEPSIA 09/17/20 12:30 Magnesium Hydroxide (Milk Of Magnesia) 2,400 mg PRN QHS PRN PO CONSTIPATION 09/17/20 12:30 Quetiapine Fumarate (SEROquel) 25 mg PRN Q2HRS PRN PO ANXIETY / AGITATION 09/17/20 14:45 10/13/20 08:56 Olanzapine (ZyPREXA) 2.5 mg TID PO 09/17/20 21:00 09/18/20 20:32 DC 09/18/20 14:07 Trazodone HCl (Desyrel) 50 mg PRN QHS PRN PO INSOMNIA, MAY REPEAT X1 09/17/20 14:45 10/14/20 19:48 Lidocaine HCl (Uro-Jet) 1 olu PRN DAILY PRN MM SEE ADMIN INSTRUCTIONS 09/18/20 17:15 Divalproex Sodium (Depakote Sprinkles) 250 mg BIDWMEALS PO 09/24/20 19:00 09/24/20 19:05 DC Divalproex Sodium (Depakote Sprinkles) 250 mg BIDWMEALS PO 09/25/20 09:00 10/01/20 21:26 DC 10/01/20 16:41 Cephalexin HCl (Keflex) 500 mg TID PO 09/26/20 21:00 10/03/20 21:00 DC 10/03/20 20:08 Divalproex Sodium (Depakote Sprinkles) 250 mg HS PO 09/28/20 21:00 10/01/20 21:26 DC 10/01/20 19:50 Lactobacillus Rhamnosus (Culturelle) 1 cap BID PO 09/30/20 21:00 10/19/20 20:27 Divalproex Sodium (Depakote Sprinkles) 375 mg BIDWMEALS PO 10/02/20 08:00 10/19/20 16:03 Divalproex Sodium (Depakote Sprinkles) 375 mg HS PO 10/02/20 21:00 10/06/20 18:01 DC 10/05/20 20:00 Sertraline HCl (Zoloft) 50 mg DAILY PO 10/03/20 09:00 10/09/20 11:51 DC 10/09/20 09:56 Non-Formulary Medication (Non Formulary Item (Prevident Toothpaste)) 1 ea BID PO 10/06/20 21:00 10/10/20 20:23 Divalproex Sodium (Depakote Sprinkles) 625 mg HS PO 10/06/20 21:00 10/19/20 20:27 Sertraline HCl (Zoloft) 75 mg DAILY PO 10/10/20 09:00 10/15/20 18:32 DC 10/15/20 07:56 Sertraline HCl (Zoloft) 100 mg DAILY PO 10/16/20 09:00 10/19/20 13:49 Buspirone HCl (Buspar) 5 mg 1200,1700 PO 10/16/20 17:00 10/19/20 16:03 I have reviewed the current psychotropics carefully including drug interactions. Risk benefit ratio favors no change other than as noted in my dictated progress note. Diagnosis: Problems: (1) Impulse control disorder, unspecified (2) Vascular dementia with delusions (3) Anxiety disorder, unspecified (4) Vascular dementia with depression (5) Major neurocognitive disorder (6) Dementia in Alzheimer's disease with depression (7) Dementia in Alzheimer's disease with delusions (8) Dementia of the Alzheimer's type with early onset with behavioral disturbance (9) Major depressive disorder with psychotic features PRABHAKAR MOLINA MD Oct 20, 2020 09:10
[2020-10-20] MEDS: busPIRone 5 MG TABLET. PO SCH ×2 (13:41→16:20)
[2020-10-20] MEDS: METOPROLOL SUCC 24HR ER 50 MG TAB.ER.24H. PO SCH (13:41)
[2020-10-20] MEDS: MULTIVITAMIN with MINERAL TABLET. PO SCH (13:41)
[2020-10-20] MEDS: DIVALPROEX 125 MG CAP.SPRINK PO SCH ×3 (13:42→20:25)
[2020-10-20] MEDS: FLUTICASONE 50MCG/NASAL SPRAY 16GM BOTTLE. NS SCH (13:42)
[2020-10-20] MEDS: FENOFIBRATE NANOCRYSTALLIZED 48 MG TABLET PO SCH (13:42)
[2020-10-20] MEDS: PANTOPRAZOLE 40 MG TABLET. PO SCH (13:42)
[2020-10-20] MEDS: SERTRALINE 50 MG TABLET. PO SCH (13:42)
[2020-10-20] MEDS: LACTOBACILLUS RHAMNOSUS GG 1 CAPSULE. PO SCH ×2 (13:42→20:25)
[2020-10-20 15:52] VITALS: BP 120/82
[2020-10-20] MEDS: MIRTAZAPINE 15 MG TABLET PO SCH (20:25)
--- NOTE | 2020-10-20 21:39 | PDOC ---
Exam Note: Manish Note: Please also refer to the separate dictated note~for this date of service dictated separately.~Patient seen individually. Discussed the patient with Nursing staff reviewed the chart.~Reviewed interim history and current functioning. Reviewed vital signs,~Labs/ Radiology~and current medications noted below. Continue current treatment with the changes noted in the dictated addendum note Assessment: Vital Signs/I&O: Vital Signs Date Time Temp Pulse Resp B/P (MAP) Pulse Ox O2 Delivery O2 Flow Rate FiO2 10/20/20 15:52 98.9 95 20 120/82 (95) 95 Room Air I & O 10/19/20 10/19/20 10/20/20 15:00 23:00 07:00 Intake Total 240 ml 240 ml Balance 240 ml 240 ml Current Medications: Meds: Current Medications Medications (Trade) Dose Ordered Sig/Sonia Route PRN Reason Start Time Stop Time Status Last Admin Dose Admin Fenofibrate (Tricor) 48 mg DAILY PO 09/18/20 09:00 10/20/20 13:42 Fluticasone Propionate (Flonase) 2 spray DAILY NS 09/18/20 09:00 10/20/20 13:42 Metoprolol Succinate (Toprol Xl) 50 mg DAILY PO 09/18/20 09:00 10/20/20 13:41 Mirtazapine (Remeron) 15 mg QHS PO 09/17/20 21:00 10/20/20 20:25 Olanzapine (ZyPREXA ZYDIS) 5 mg DAILY PO 09/18/20 09:00 09/17/20 15:00 DC Pantoprazole Sodium (Protonix) 40 mg DAILY PO 09/18/20 09:00 10/20/20 13:42 Multivitamins/ Calcium (Thera-M Plus) 1 tab DAILY PO 09/18/20 09:00 10/20/20 13:41 Acetaminophen (Tylenol) 650 mg PRN Q6HRS PRN PO MILD PAIN / TEMP > 100.3'F 09/17/20 12:30 10/01/20 05:36 Multi-Ingredient Ointment (Analgesic [place]) 1 olu PRN QID PRN TP MUSCLE PAIN 09/17/20 12:30 09/23/20 21:23 Al Hydroxide/Mg Hydroxide (Mylanta Plus Xs) 15 ml PRN AFTMEALHC PRN PO DYSPEPSIA 09/17/20 12:30 Magnesium Hydroxide (Milk Of Magnesia) 2,400 mg PRN QHS PRN PO CONSTIPATION 09/17/20 12:30 Quetiapine Fumarate (SEROquel) 25 mg PRN Q2HRS PRN PO ANXIETY / AGITATION 09/17/20 14:45 10/13/20 08:56 Olanzapine (ZyPREXA) 2.5 mg TID PO 09/17/20 21:00 09/18/20 20:32 DC 09/18/20 14:07 Trazodone HCl (Desyrel) 50 mg PRN QHS PRN PO INSOMNIA, MAY REPEAT X1 09/17/20 14:45 10/14/20 19:48 Lidocaine HCl (Uro-Jet) 1 olu PRN DAILY PRN MM SEE ADMIN INSTRUCTIONS 09/18/20 17:15 Divalproex Sodium (Depakote Sprinkles) 250 mg BIDWMEALS PO 09/24/20 19:00 09/24/20 19:05 DC Divalproex Sodium (Depakote Sprinkles) 250 mg BIDWMEALS PO 09/25/20 09:00 10/01/20 21:26 DC 10/01/20 16:41 Cephalexin HCl (Keflex) 500 mg TID PO 09/26/20 21:00 10/03/20 21:00 DC 10/03/20 20:08 Divalproex Sodium (Depakote Sprinkles) 250 mg HS PO 09/28/20 21:00 10/01/20 21:26 DC 10/01/20 19:50 Lactobacillus Rhamnosus (Culturelle) 1 cap BID PO 09/30/20 21:00 10/20/20 20:25 Divalproex Sodium (Depakote Sprinkles) 375 mg BIDWMEALS PO 10/02/20 08:00 10/20/20 16:20 Divalproex Sodium (Depakote Sprinkles) 375 mg HS PO 10/02/20 21:00 10/06/20 18:01 DC 10/05/20 20:00 Sertraline HCl (Zoloft) 50 mg DAILY PO 10/03/20 09:00 10/09/20 11:51 DC 10/09/20 09:56 Non-Formulary Medication (Non Formulary Item (Prevident Toothpaste)) 1 ea BID PO 10/06/20 21:00 10/10/20 20:23 Divalproex Sodium (Depakote Sprinkles) 625 mg HS PO 10/06/20 21:00 10/20/20 20:25 Sertraline HCl (Zoloft) 75 mg DAILY PO 10/10/20 09:00 10/15/20 18:32 DC 10/15/20 07:56 Sertraline HCl (Zoloft) 100 mg DAILY PO 10/16/20 09:00 10/20/20 13:42 Buspirone HCl (Buspar) 5 mg 1200,1700 PO 10/16/20 17:00 10/20/20 16:20 I have reviewed the current psychotropics carefully including drug interactions. Risk benefit ratio favors no change other than as noted in my dictated progress note. Diagnosis: Problems: (1) Impulse control disorder, unspecified (2) Vascular dementia with delusions (3) Anxiety disorder, unspecified (4) Vascular dementia with depression (5) Major neurocognitive disorder (6) Dementia in Alzheimer's disease with depression (7) Dementia in Alzheimer's disease with delusions (8) Dementia of the Alzheimer's type with early onset with behavioral disturbance (9) Major depressive disorder with psychotic features PRABHAKAR MOLINA MD Oct 20, 2020 21:39
[2020-10-21 06:51] VITALS: BP 140/102
[2020-10-21] MEDS: DIVALPROEX 125 MG CAP.SPRINK PO SCH ×3 (07:57→20:20)
[2020-10-21] MEDS: MULTIVITAMIN with MINERAL TABLET. PO SCH (07:57)
[2020-10-21] MEDS: LACTOBACILLUS RHAMNOSUS GG 1 CAPSULE. PO SCH ×2 (07:57→20:20)
[2020-10-21] MEDS: FLUTICASONE 50MCG/NASAL SPRAY 16GM BOTTLE. NS SCH (07:57)
[2020-10-21] MEDS: [UNRECOGNIZED DRUG - OTHER] PO SCH ×2 (07:58→20:21)
[2020-10-21] MEDS: METOPROLOL SUCC 24HR ER 50 MG TAB.ER.24H. PO SCH (07:58)
[2020-10-21] MEDS: SERTRALINE 50 MG TABLET. PO SCH (07:58)
[2020-10-21] MEDS: PANTOPRAZOLE 40 MG TABLET. PO SCH (07:58)
[2020-10-21] MEDS: FENOFIBRATE NANOCRYSTALLIZED 48 MG TABLET PO SCH (07:58)
--- NOTE | 2020-10-21 08:40 | PDOC ---
Exam Note: Manish Note: This note is a late entry for 10/20/2020 covers elements not covered in my initial note. Subjective: The patient was seen individually in the evening of 10/20/2020 with Barrie, discussed and reviewed the chart. He slept 6 hours previous night. The patient has been less drowsy. He takes his medications crushed. He is less labile in his mood. Review of Systems: Ambulation impaired in wheelchair. No CV, , pulmonary, eye, ENT system symptoms on review. Mental Status Exam: The patient is oriented to himself. Insight and judgment, recent and remote memory, attention and concentration, fund of knowledge is poor consistent with his diagnoses. Laboratory Data: Reviewed. Impression: Major neurocognitive disorder Alzheimer vascular with delusion, depression, behavioral disturbance. Major depressive disorder with psychotic features. Anxiety disorder unspecified. Impulse control disorder unspecified. Plan: Continue rest of the psychotropics unchanged. Dr. Falk will be covering for me from Friday through November 04, 2020. Assessment: Vital Signs/I&O: Vital Signs Date Time Temp Pulse Resp B/P (MAP) Pulse Ox O2 Delivery O2 Flow Rate FiO2 10/21/20 07:58 88 140/102 10/21/20 06:51 97.7 16 93 Room Air I & O0 10/20/20 10/20/20 10/21/20 15:00 23:00 07:00 Intake Total 240 ml 240 ml Balance 240 ml 240 ml Current Medications: Meds: Current Medications Medications (Trade) Dose Ordered Sig/Sonia Route PRN Reason Start Time Stop Time Status Last Admin Dose Admin Fenofibrate (Tricor) 48 mg DAILY PO 09/18/20 09:00 10/21/20 07:58 Fluticasone Propionate (Flonase) 2 spray DAILY NS 09/18/20 09:00 10/21/20 07:57 Metoprolol Succinate (Toprol Xl) 50 mg DAILY PO 09/18/20 09:00 10/21/20 07:58 Mirtazapine (Remeron) 15 mg QHS PO 09/17/20 21:00 10/20/20 20:25 Olanzapine (ZyPREXA ZYDIS) 5 mg DAILY PO 09/18/20 09:00 09/17/20 15:00 DC Pantoprazole Sodium (Protonix) 40 mg DAILY PO 09/18/20 09:00 10/21/20 07:58 Multivitamins/ Calcium (Thera-M Plus) 1 tab DAILY PO 09/18/20 09:00 10/21/20 07:57 Acetaminophen (Tylenol) 650 mg PRN Q6HRS PRN PO MILD PAIN / TEMP > 100.3'F 09/17/20 12:30 10/01/20 05:36 Multi-Ingredient Ointment (Analgesic [place]) 1 olu PRN QID PRN TP MUSCLE PAIN 09/17/20 12:30 09/23/20 21:23 Al Hydroxide/Mg Hydroxide (Mylanta Plus Xs) 15 ml PRN AFTMEALHC PRN PO DYSPEPSIA 09/17/20 12:30 Magnesium Hydroxide (Milk Of Magnesia) 2,400 mg PRN QHS PRN PO CONSTIPATION 09/17/20 12:30 Quetiapine Fumarate (SEROquel) 25 mg PRN Q2HRS PRN PO ANXIETY / AGITATION 09/17/20 14:45 10/13/20 08:56 Olanzapine (ZyPREXA) 2.5 mg TID PO 09/17/20 21:00 09/18/20 20:32 DC 09/18/20 14:07 Trazodone HCl (Desyrel) 50 mg PRN QHS PRN PO INSOMNIA, MAY REPEAT X1 09/17/20 14:45 10/14/20 19:48 Lidocaine HCl (Uro-Jet) 1 olu PRN DAILY PRN MM SEE ADMIN INSTRUCTIONS 09/18/20 17:15 Divalproex Sodium (Depakote Sprinkles) 250 mg BIDWMEALS PO 09/24/20 19:00 09/24/20 19:05 DC Divalproex Sodium (Depakote Sprinkles) 250 mg BIDWMEALS PO 09/25/20 09:00 10/01/20 21:26 DC 10/01/20 16:41 Cephalexin HCl (Keflex) 500 mg TID PO 09/26/20 21:00 10/03/20 21:00 DC 10/03/20 20:08 Divalproex Sodium (Depakote Sprinkles) 250 mg HS PO 09/28/20 21:00 10/01/20 21:26 DC 10/01/20 19:50 Lactobacillus Rhamnosus (Culturelle) 1 cap BID PO 09/30/20 21:00 10/21/20 07:57 Divalproex Sodium (Depakote Sprinkles) 375 mg BIDWMEALS PO 10/02/20 08:00 10/21/20 07:57 Divalproex Sodium (Depakote Sprinkles) 375 mg HS PO 10/02/20 21:00 10/06/20 18:01 DC 10/05/20 20:00 Sertraline HCl (Zoloft) 50 mg DAILY PO 10/03/20 09:00 10/09/20 11:51 DC 10/09/20 09:56 Non-Formulary Medication (Non Formulary Item (Prevident Toothpaste)) 1 ea BID PO 10/06/20 21:00 10/21/20 07:58 Divalproex Sodium (Depakote Sprinkles) 625 mg HS PO 10/06/20 21:00 10/20/20 20:25 Sertraline HCl (Zoloft) 75 mg DAILY PO 10/10/20 09:00 10/15/20 18:32 DC 10/15/20 07:56 Sertraline HCl (Zoloft) 100 mg DAILY PO 10/16/20 09:00 10/21/20 07:58 Buspirone HCl (Buspar) 5 mg 1200,1700 PO 10/16/20 17:00 10/20/20 16:20 I have reviewed the current psychotropics carefully including drug interactions. Risk benefit ratio favors no change other than as noted in my dictated progress note. Diagnosis: Problems: (1) Impulse control disorder, unspecified (2) Vascular dementia with delusions (3) Anxiety disorder, unspecified (4) Vascular dementia with depression (5) Major neurocognitive disorder (6) Dementia in Alzheimer's disease with depression (7) Dementia in Alzheimer's disease with delusions (8) Dementia of the Alzheimer's type with early onset with behavioral disturbance (9) Major depressive disorder with psychotic features PRABHAKAR MOLINA MD Oct 21, 2020 08:40
[2020-10-21] MEDS: busPIRone 5 MG TABLET. PO SCH ×2 (12:09→16:15)
[2020-10-21 16:43] VITALS: BP 120/82
[2020-10-21] MEDS: MIRTAZAPINE 15 MG TABLET PO SCH (20:21)
--- NOTE | 2020-10-21 23:44 | PN ---
DATE: 10/21/2020 SUBJECTIVE: The patient was seen today, met with the staff, chart reviewed and also covering for Dr. Almeida. Staff reports no major behavior problems. The patient apparently having multiple physical problems, increased confusion, tends to get paranoid. OBSERVATION: VITAL SIGNS: Temperature 97.7, blood pressure 140/102, pulse 88, respirations 16, O2 sat 97%. GENERAL: Slept about 7 hours last night. LABORATORY DATA: The patient's lab reviewed. MEDICATIONS: The patient's current medications reviewed. Currently, he is on BuSpar 5 mg twice a day, Zoloft 100 mg daily, ____ 375 mg twice a day, trazodone 50 mg at night p.r.n. and also Seroquel 25 mg q.2 hours p.r.n. The patient is not showing major side effects. The patient's Depakote level was 71. ASSESSMENT: Major neurocognitive disorder, Alzheimer's vascular with depression, delusions and behavioral disturbances. Also, history of major depression with psychotic features. PLAN: Continue with the current treatment. LENGTH OF STAY: 7 days. Awaiting for placement. AVIVA DEWITT MD DR: [place]/romina JOB#: [id number] / [id number]
[2020-10-22 06:20] VITALS: BP 144/93
[2020-10-22] MEDS: [UNRECOGNIZED DRUG - OTHER] PO SCH ×2 (09:00→20:48)
[2020-10-22] MEDS: FLUTICASONE 50MCG/NASAL SPRAY 16GM BOTTLE. NS SCH (09:00)
[2020-10-22] MEDS: MULTIVITAMIN with MINERAL TABLET. PO SCH (09:00)
[2020-10-22] MEDS: busPIRone 5 MG TABLET. PO SCH ×2 (12:02→17:59)
[2020-10-22] MEDS: DIVALPROEX 125 MG CAP.SPRINK PO SCH ×3 (12:03→20:47)
[2020-10-22] MEDS: METOPROLOL SUCC 24HR ER 50 MG TAB.ER.24H. PO SCH (12:03)
[2020-10-22] MEDS: SERTRALINE 50 MG TABLET. PO SCH (12:03)
[2020-10-22] MEDS: LACTOBACILLUS RHAMNOSUS GG 1 CAPSULE. PO SCH ×2 (12:03→20:48)
[2020-10-22] MEDS: PANTOPRAZOLE 40 MG TABLET. PO SCH (12:04)
[2020-10-22] MEDS: FENOFIBRATE NANOCRYSTALLIZED 48 MG TABLET PO SCH (12:06)
[2020-10-22 16:23] VITALS: BP 112/69
--- NOTE | 2020-10-22 20:42 | PN ---
DATE: 10/22/2020 SUBJECTIVE: The patient was seen today, met with the staff, chart reviewed and also covering for Dr. Almeida. The patient continues to be aggressive, resistive to care and also showing increased confusion. Staff reports he is medication compliant. OBSERVATION: VITAL SIGNS: Temperature 97.3, blood pressure 144/93, pulse 86, respirations 16, O2 sat 98%. GENERAL: Slept about 4 hours last night. CURRENT MEDICATIONS: The patient's current medications include BuSpar 5 mg twice a day, Zoloft 100 mg daily, Depakote Sprinkles 625 mg at night and 375 mg twice a day, mirtazapine 15 mg at night and trazodone 50 mg at night p.r.n. He is also on Seroquel 25 mg every 2 hours p.r.n. for anxiety and agitation. LABORATORY DATA: The patient's lab reviewed. ASSESSMENT: Major neurocognitive disorder, Alzheimer's, vascular with a depression, delusions and behavioral disturbances. The patient has a history of depression with psychotic features. PLAN: Continue with the current treatment. LENGTH OF STAY: 7 days. He is awaiting for placement. AVIVA DEWITT MD DR: [place]/romina JOB#: [id number] / [id number] HANNAH
[2020-10-22] MEDS: MIRTAZAPINE 15 MG TABLET PO SCH (20:48)
[2020-10-22] MEDS: traZODone 50 MG TABLET. PO PRN (20:48)
[2020-10-23 06:41] VITALS: BP 134/92
[2020-10-23] MEDS: FLUTICASONE 50MCG/NASAL SPRAY 16GM BOTTLE. NS SCH (09:00)
[2020-10-23] MEDS: [UNRECOGNIZED DRUG - OTHER] PO SCH ×2 (09:00→20:31)
[2020-10-23] MEDS: LACTOBACILLUS RHAMNOSUS GG 1 CAPSULE. PO SCH ×2 (10:14→20:31)
[2020-10-23] MEDS: MULTIVITAMIN with MINERAL TABLET. PO SCH (10:14)
[2020-10-23] MEDS: SERTRALINE 50 MG TABLET. PO SCH (10:15)
[2020-10-23] MEDS: PANTOPRAZOLE 40 MG TABLET. PO SCH (10:15)
[2020-10-23] MEDS: DIVALPROEX 125 MG CAP.SPRINK PO SCH ×3 (10:15→20:31)
[2020-10-23] MEDS: METOPROLOL SUCC 24HR ER 50 MG TAB.ER.24H. PO SCH (10:15)
[2020-10-23] MEDS: busPIRone 5 MG TABLET. PO SCH ×2 (13:44→17:00)
[2020-10-23] MEDS: FENOFIBRATE NANOCRYSTALLIZED 48 MG TABLET PO SCH (13:44)
[2020-10-23 15:43] VITALS: BP 120/75
--- NOTE | 2020-10-23 16:44 | TX PLAN ---
Interdisciplinary Tx Plan Admission Information Sep 17, 2020 at 10:23 Legal Status (on Admission): Voluntary DPOA/Guardian Name: Halina Gomez Contact Other Contact Name: Halina Gomez Other Contact Verified Code Status: DNR Allergies: Coded Allergies: No Known Drug Allergies (Unverified , 08/01/20) Diagnoses Primary Diagnosis: MDD with psychotic features, Major Neurocognitive D/O, Alzheimers, vascular with delusions, depression Reasons for Admission: Aggressive, Agitated, Sig. Change Sleep, Confusion/Disoriented Problem in Patient's Words: This whole catheter issue has caused him to become unsteady again and needs to be stable. Additional Admission Comments: According to the intake, pt is agitated, verbally aggressive, disoriented, insomnia, hostile and sundowning Problems Active Problems: verbally aggressive agitated physically aggressive labile Inactive Problems: Medication compliant Pt Strengths/Limitations Ability for [place]: Poor Cognitive Functioning/Ability: Fair Communication Skills/Ability: Fair Financial Resources: Good Insight/Judgement: Poor Intellectual Ability: Fair Physical Health: Poor Social Skills: Fair Stability in Family: Good Stability in School/Work: Poor Verbal Skills: Fair Discharge Criteria Discharge Criteria: No need for close observ., Adequate arrangements @DC, Improved behavior, Improved mood/thought Preliminary Discharge Plan Preliminary DC Plan: Placement Needed Special Precautions Fall Risk: Moderate Initial D/C Plan Pt will need placement upon dishcarge; request for SNF/rehab facility Identified Discharge Needs: Referrals for a higher level of care Currently Utilized Resources Currently Utilized Resources/P: Primary Care Physician Referrals Community Resources: Referrals to higher level of care. Identified Problems/Hx/Goals Objectives/Short-Term Goals Short Term Goals: Dec. Aggression, Dec. Outbursts, Medication Stabilization, Monitor Med Effects, Promote Coping Skill Short Term Goals in Patient's: N/A Interventions/Frequency Staff Interventions/Frequency&: Psychiatrist to assess pt at least 3x per week for medication management and effects. Social Work to assess pt at least 2x per week for barriers to care and finalize discharge plans with all involved parties. Nursing to assess behaviors, medication effects and completion of 15 minute checks daily. Encourage group participation in activities (if applicable) or 1:1 engagement based off activity dept goals. 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 Education: Pt graduated from High school (12th grade). Community Follow-up Primary Care Physician Possible referrals for psychiatrist while at placement Community Provider/Family Inpu: Pt is concerned about pt medications creating urinary trouble and wishes for these effects to be monitored closely. Pt needs to be able to walk before he can return home which is why pt may need to be at SNF/rehab after discharge. Treatment Plan Explained Patient/Rn Progressive Care had this treatment plan explained to him/her as indicated by the signature below and has been given the opportunity to ask questions and make suggestions: Date: Patient/Rn Progressive Care Signature: Status Update Update Treatment Team Update: Pt is eating roughly 75% of meals and sleeping on average 6 hours per night. Pt continues to sleep in until at least 10:00AM; t his increases his medication compliance and lessens behaviors. Pt did not have any PRN medications last night or this morning. He appears to be a little less combative with cares. Pt will have his VPA level repeated as the last one was October 09. SW will continue to work with pt family and send out referrals for Memory Care. BRITTA PARKER Oct 23, 2020 16:44
[2020-10-23] MEDS: traZODone 50 MG TABLET. PO PRN (20:31)
[2020-10-23] MEDS: MIRTAZAPINE 15 MG TABLET PO SCH (20:31)
--- NOTE | 2020-10-24 00:54 | PN ---
DATE: 10/23/2020 SUBJECTIVE: The patient was seen today, met with the staff, chart reviewed and also covering for Dr. Almeida. Also discussed in the treatment review conference today. The patient continues to have behavior problems, increased aggression, also physical towards the staff at times. OBSERVATION: VITAL SIGNS: Temperature 97.8, blood pressure 134/92, pulse 97, respirations 16, O2 sat 95%. GENERAL: Slept about 6 hours last night. CURRENT MEDICATIONS: The patient's current medications include BuSpar 5 mg twice a day, Zoloft 100 mg daily, Depakote Sprinkles 625 mg at night and 375 mg twice daily. He is also on mirtazapine 15 mg at night and also trazodone 50 mg at night p.r.n. The patient is also on Seroquel 25 mg q. 12 hours p.r.n. for anxiety and agitation. The patient is not having any major side effects. LABORATORY DATA: The patient's lab reviewed. ASSESSMENT: 1. Major neurocognitive disorder, Alzheimer's, vascular with depression, delusions and behavioral disturbances. 2. History of major depression with psychotic features. PLAN: Continue with the treatment. LENGTH OF STAY: 7 days. AVIVA DEWITT MD DR: [place]/romina JOB#: [id number] / [id number]
[2020-10-24 05:54] VITALS: BP 122/84
[2020-10-24 06:14] LABS: VAL ACID 61 mcg/mL (50-100)
[2020-10-24] MEDS: FENOFIBRATE NANOCRYSTALLIZED 48 MG TABLET PO SCH (09:00)
[2020-10-24] MEDS: METOPROLOL SUCC 24HR ER 50 MG TAB.ER.24H. PO SCH (09:00)
[2020-10-24] MEDS: FLUTICASONE 50MCG/NASAL SPRAY 16GM BOTTLE. NS SCH (09:00)
[2020-10-24] MEDS: [UNRECOGNIZED DRUG - OTHER] PO SCH ×2 (09:00→19:40)
[2020-10-24] MEDS: busPIRone 5 MG TABLET. PO SCH ×2 (14:54→17:06)
[2020-10-24] MEDS: MULTIVITAMIN with MINERAL TABLET. PO SCH (14:54)
[2020-10-24] MEDS: DIVALPROEX 125 MG CAP.SPRINK PO SCH ×3 (14:54→19:40)
[2020-10-24] MEDS: LACTOBACILLUS RHAMNOSUS GG 1 CAPSULE. PO SCH ×2 (14:54→19:40)
[2020-10-24] MEDS: PANTOPRAZOLE 40 MG TABLET. PO SCH (14:55)
[2020-10-24] MEDS: SERTRALINE 50 MG TABLET. PO SCH (14:55)
[2020-10-24 16:07] VITALS: BP 107/78
[2020-10-24] MEDS: MIRTAZAPINE 15 MG TABLET PO SCH (19:40)
[2020-10-24] MEDS: traZODone 50 MG TABLET. PO PRN (19:40)
--- NOTE | 2020-10-24 22:58 | PN ---
DATE: 10/24/2020 SUBJECTIVE: The patient was seen today, met with the staff, chart reviewed, and covering for Dr. Almeida. Staff reports no falls, but continues to have problems with behaviors, increased aggression and has been physical towards the staff in the past. OBSERVATION: VITAL SIGNS: Temperature 96.3, blood pressure 122/84, pulse 66, respirations 18, O2 sat 94%. GENERAL: Slept about 7 hours last night. CURRENT MEDICATIONS: The patient's current medications include BuSpar 5 mg twice a day, Zoloft 100 mg daily, Depakote Sprinkles 625 mg at night and 375 mg twice a day. He is also on mirtazapine 15 mg at night and trazodone 50 mg at night p.r.n. The patient is also on Seroquel 25 mg p.r.n. twice a day. The patient is not experiencing any side effects. ASSESSMENT: 1. Major neurocognitive disorder, Alzheimer's, vascular with depression, delusions and behavioral disturbances. 2. History of major depression with psychotic features. PLAN: Continue with the treatment. LENGTH OF STAY: 7 days. AVIVA DEWITT MD DR: [place]/romina JOB#: [id number] / [id number]
[2020-10-25 05:57] VITALS: BP 102/67
[2020-10-25 07:13] LABS: BASO # 0.2 x10^3/uL (0.0-0.2); BASO % 1 % (0-3); EOS # 0.4 x10^3/uL (0.0-0.7); EOS % 3 % (0-3); HEMATOCRIT 48.8 % (39.0-53.0); LYMPH # 2.6 x10^3/uL (1.0-4.8); LYMPH % 19 % (24-48); MEAN CORPUSCULAR HEMOGLOBIN 30 pg (25-35); MEAN CORPUSCULAR HGB CONC 33 g/dL (31-37); MEAN CORPUSCULAR VOLUME 92 fL (79-100); MONO # 1.8 x10^3/uL (0.0-1.1); MONO % 13 % (0-9); NEUT % 65 % (31-73); PLATELET COUNT 293 x10^3/uL (140-400); RED BLOOD COUNT 5.31 x10^6/uL (4.30-5.70); RED CELL DISTRIBUTION WIDTH 14.2 % (11.5-14.5); WHITE BLOOD COUNT 13.9 x10^3/uL (4.0-11.0)
[2020-10-25 07:15] LABS: ALBUMIN 2.8 g/dL (3.4-5.0); ALBUMIN/GLOBULIN RATIO 0.7 (1.0-1.7); CALCIUM 9.6 mg/dL (8.5-10.1); CREATININE 1.2 mg/dL (0.7-1.3); GFR 58.7; POTASSIUM 4.2 mmol/L (3.5-5.1); TOTAL BILIRUBIN 0.5 mg/dL (0.2-1.0); TOTAL PROTEIN 7.1 g/dL (6.4-8.2)
[2020-10-25] MEDS: METOPROLOL SUCC 24HR ER 50 MG TAB.ER.24H. PO SCH (07:34)
[2020-10-25] MEDS: LACTOBACILLUS RHAMNOSUS GG 1 CAPSULE. PO SCH ×2 (07:34→19:23)
[2020-10-25] MEDS: SERTRALINE 50 MG TABLET. PO SCH (07:35)
[2020-10-25] MEDS: MULTIVITAMIN with MINERAL TABLET. PO SCH (07:35)
[2020-10-25] MEDS: PANTOPRAZOLE 40 MG TABLET. PO SCH (07:35)
[2020-10-25] MEDS: DIVALPROEX 125 MG CAP.SPRINK PO SCH ×3 (07:35→19:23)
[2020-10-25] MEDS: FENOFIBRATE NANOCRYSTALLIZED 48 MG TABLET PO SCH (07:35)
[2020-10-25] MEDS: [UNRECOGNIZED DRUG - OTHER] PO SCH ×2 (07:36→19:23)
[2020-10-25] MEDS: FLUTICASONE 50MCG/NASAL SPRAY 16GM BOTTLE. NS SCH (07:36)
[2020-10-25 11:27] LABS: PLT ESTIMATE ADEQUATE (ADEQUATE)
[2020-10-25 11:30] LABS: BURR CELLS PRESENT
[2020-10-25 11:31] LABS: TEAR DROP CELLS OCC
[2020-10-25] MEDS: busPIRone 5 MG TABLET. PO SCH ×2 (12:00→16:22)
[2020-10-25 15:26] VITALS: BP 119/82
[2020-10-25] MEDS: MIRTAZAPINE 15 MG TABLET PO SCH (19:22)
--- NOTE | 2020-10-26 00:26 | PN ---
DATE: 10/25/2020 SUBJECTIVE: The patient was seen today, met with the staff, chart reviewed and also covering for Dr. Almeida. Staff reports increased behavior problems, spit out some of his medications last night, resistive to care and withdrawn: OBSERVATION: VITAL SIGNS: Temperature 97.5, blood pressure 107/78, pulse 110, respirations 17, O2 sat 92%. GENERAL: The patient is not having any physical complaints. MEDICATIONS: The patient's current medications include BuSpar 5 mg twice a day, Zoloft 100 mg daily, and Depakote Sprinkles 625 mg at night and 375 mg twice a day. He is also on mirtazapine 15 mg at night. The patient is on p.r.n. trazodone 50 mg at night and also Seroquel 25 mg p.r.n. twice a day. The patient is not exhibiting any side effects. ASSESSMENT: 1. Major neurocognitive disorder, Alzheimer's, vascular with depression, delusions and behavioral disturbances. 2. History of major depression with psychotic features. PLAN: To continue with the treatment. LENGTH OF STAY: 7 days. AVIVA DEWITT MD DR: [place]/romina JOB#: [id number] / [id number]
[2020-10-26 06:07] VITALS: BP 139/94
[2020-10-26] MEDS: MULTIVITAMIN with MINERAL TABLET. PO SCH (08:24)
[2020-10-26] MEDS: FENOFIBRATE NANOCRYSTALLIZED 48 MG TABLET PO SCH (08:24)
[2020-10-26] MEDS: DIVALPROEX 125 MG CAP.SPRINK PO SCH ×3 (08:24→21:19)
[2020-10-26] MEDS: METOPROLOL SUCC 24HR ER 50 MG TAB.ER.24H. PO SCH (08:24)
[2020-10-26] MEDS: PANTOPRAZOLE 40 MG TABLET. PO SCH (08:24)
[2020-10-26] MEDS: LACTOBACILLUS RHAMNOSUS GG 1 CAPSULE. PO SCH ×2 (08:24→21:18)
[2020-10-26] MEDS: SERTRALINE 50 MG TABLET. PO SCH (08:24)
[2020-10-26] MEDS: [UNRECOGNIZED DRUG - OTHER] PO SCH ×2 (09:00→21:00)
[2020-10-26] MEDS: FLUTICASONE 50MCG/NASAL SPRAY 16GM BOTTLE. NS SCH (09:00)
[2020-10-26] MEDS ORDERED: IV DEXTROSE 5% 1,000 ML IV SCH (11:15)
[2020-10-26] MEDS: busPIRone 5 MG TABLET. PO SCH ×2 (12:00→17:00)
[2020-10-26] MEDS: IV DEXTROSE 5% 1,000 ML IV SCH ×2 (13:00→23:10)
[2020-10-26 16:14] VITALS: BP 122/86
--- NOTE | 2020-10-26 22:26 | PN ---
DATE: 10/26/2020 SUBJECTIVE: The patient was seen today, met with the staff, chart reviewed, and covering for Dr. Almeida. Staff reports having multiple physical problems. The patient's sodium was increased to 155. Apparently, he has been dehydrating. The patient was seen by the primary care. OBSERVATIONS: VITAL SIGNS: Stable. MEDICATIONS: The patient's current medications include BuSpar 5 mg twice a day, Zoloft 100 mg daily and Depakote Sprinkles 625 mg at night and 375 mg twice a day. He is also on mirtazapine 15 mg at night and p.r.n. trazodone and Seroquel. The patient is not having any side effects. LABORATORY DATA: The patient's lab reviewed. The patient's BUN was 43. Sodium 155, chloride 116, glucose 121, AST 60. ASSESSMENT: 1. Major neurocognitive disorder, Alzheimer's, vascular with a depression and behavioral disturbances. 2. History of major depression with psychotic features. PLAN: Continue with the treatment. LENGTH OF STAY: 7 days. AVIVA DEWITT MD DR: [place]/roimna JOB#: [id number] / [id number]
[2020-10-27 06:16] LABS: CALCIUM 8.9 mg/dL (8.5-10.1); CREATININE 1.2 mg/dL (0.7-1.3); GFR 58.7; POTASSIUM 3.6 mmol/L (3.5-5.1)
[2020-10-27 06:25] VITALS: BP 133/66
[2020-10-27] MEDS: FENOFIBRATE NANOCRYSTALLIZED 48 MG TABLET PO SCH (09:00)
[2020-10-27] MEDS: [UNRECOGNIZED DRUG - OTHER] PO SCH (09:00)
[2020-10-27] MEDS: IV DEXTROSE 5% 1,000 ML IV SCH (09:56)
[2020-10-27] MEDS: busPIRone 5 MG TABLET. PO SCH (11:20)
[2020-10-27] MEDS: FLUTICASONE 50MCG/NASAL SPRAY 16GM BOTTLE. NS SCH (11:20)
[2020-10-27] MEDS: PANTOPRAZOLE 40 MG TABLET. PO SCH (11:21)
[2020-10-27] MEDS: METOPROLOL SUCC 24HR ER 50 MG TAB.ER.24H. PO SCH (11:21)
[2020-10-27] MEDS: SERTRALINE 50 MG TABLET. PO SCH (11:21)
[2020-10-27] MEDS: DIVALPROEX 125 MG CAP.SPRINK PO SCH (11:21)
[2020-10-27] MEDS: MULTIVITAMIN with MINERAL TABLET. PO SCH (11:21)
[2020-10-27] MEDS: LACTOBACILLUS RHAMNOSUS GG 1 CAPSULE. PO SCH (11:21)
[2020-10-27] MEDS ORDERED: DIVA125C2 PO ×2 (15:10→15:46)
[2020-10-27] MEDS ORDERED: MULT-245 PO (15:15)
[2020-10-27] MEDS ORDERED: SERT50TA PO (15:16)
[2020-10-27] MEDS ORDERED: QUET25TA5 PO (15:16)
[2020-10-27] MEDS ORDERED: BUSP5TAB PO (15:17)
[2020-10-27] MEDS ORDERED: LACT1CAP19 PO (15:19)
[2020-10-27] MEDS ORDERED: TRAZ-120 PO (15:19)
[2020-10-27] MEDS ORDERED: [UNRECOGNIZED DRUG - CODE] IV (15:24)
[2020-10-27] MEDS ORDERED: ACET325T9 PO (15:46)
[2020-10-27 15:47] VITALS: BP 129/89
[2020-10-27] MEDS ORDERED: lidocaine 2% UR (15:50)
[2020-10-27] MEDS ORDERED: MAG355OR12 PO (15:52)
[2020-10-27] MEDS ORDERED: MAGN24003 PO (15:53)
[2020-10-27] MEDS ORDERED: METH57CR17 TP (15:54)
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
== END 2020-10-27 16:20 | disposition short-term general hospital (02) | DRG 57 ==
LOC: GEROPSY 10:23 → UNDODISIN 10-27 16:20
PROVIDERS: ADMIT Psychiatry & Neurology Psychiatry; ATTEND Psychiatry & Neurology Psychiatry
DX: G30.9 Alzheimer's disease, unspecified (principal); F05 Delirium due to known physiological condition; F32.3 Major depressive disorder, single episode, severe with psychotic features; F02.81 Dementia in other diseases classified elsewhere, unspecified severity, with behavioral disturbance; N39.0 Urinary tract infection, site not specified; F01.51 Vascular dementia, unspecified severity, with behavioral disturbance; F41.9 Anxiety disorder, unspecified; Z20.822 Contact with and (suspected) exposure to COVID-19; F63.9 Impulse disorder, unspecified; I10 Essential (primary) hypertension; N13.9 Obstructive and reflux uropathy, unspecified; R32 Unspecified urinary incontinence; Z66 Do not resuscitate; Z79.899 Other long term (current) drug therapy; Z86.73 Personal history of transient ischemic attack (TIA), and cerebral infarction without residual deficits
CPT/HCPCS: 36415; 74176; 80048; 80053; 80164; 81001; 85025; 85610; 87040; 87077; 87086; U0003; U0005; 97110; 97116; 97530; 97535

== ENCOUNTER 2020-10-27 16:20 | Inpatient (IN) | payer MEDICARE ==
[~2020-10-27] VITALS: Ht 185.4 cm; Wt 82.3 kg
[~2020-10-27 16:20] MED LIST changes: +ACET325T9 PO; +BUSP5TAB PO; +DIVA125C2 PO; +LACT1CAP19 PO; +MAG355OR12 PO; +MAGN24003 PO; +METH57CR17 TP; +MULT-245 PO; +QUET25TA5 PO; +SERT50TA PO; +SODIUM FLUORIDE; +TRAZ-120 PO; +[UNRECOGNIZED DRUG - CODE] IV; +lidocaine 2% UR
[2020-10-27 16:30] VITALS: BP 130/77
--- NOTE | 2020-10-27 18:44 | NUR ---
Admission Patient arrived from [facility] via wheelchair, orders acknowledged per Dr. Art, patient alert to self, combative at times. Fluids infusing, patient of room air, assisted to bed via x3 staff members, changed depends, and assessment done. No other needs at this time.
[2020-10-27] MEDS: IV DEXTROSE 5% 1,000 ML IV SCH (20:18)
[2020-10-28 06:20] LABS: CALCIUM 8.5 mg/dL (8.5-10.1); CREATININE 1.1 mg/dL (0.7-1.3); GFR 64.9; POTASSIUM 3.5 mmol/L (3.5-5.1)
[2020-10-28] MEDS: IV DEXTROSE 5% 1,000 ML IV SCH ×2 (06:23→21:00)
[2020-10-28 07:40] VITALS: BP 134/94
[2020-10-28] MEDS ORDERED: ACETAMINOPHEN 325 MG TABLET PO PRN (08:15)
[2020-10-28] MEDS ORDERED: DEXTROSE 5% IV SCH (08:15)
--- NOTE | 2020-10-28 08:27 | HP ---
ADMIT DATE: 10/27/2020 ATTENDING PHYSICIAN: Dr. Baldwin. CHIEF COMPLAINT: Weakness and hypernatremia. HISTORY OF PRESENT ILLNESS: The patient is a 75-year-old gentleman well known to us from previous admission. He has been up at the [facility] for the last 2-1/2 months. I have seen him on many occasions. He has profound dementia. Treatment has not been effective. He has been in decline. He has stopped eating. He lost some weight. He has had intermittent issues with urinary incontinence. We transfer him to [place] a month ago. The catheter has since been pulled out. He has adult diapers. His serum sodium level went up to 155 mEq per liter. Due to free water deficit he is not taking much of his pills. Therefore, it was decided to move him down here for hydration and treatment of the hypernatremia. Eventually, I think will get him back to the [facility] in [place]. Arrangements are in the process. PAST MEDICAL HISTORY: Significant for vascular dementia, psychosis, impulse control disorder, anxiety disorder, and urinary obstruction. CURRENT MEDICATIONS: From the [facility] include BuSpar, Dextrose which was started yesterday, Depakote, fluticasone, lactobacillus, magnesium hydroxide, metoprolol, multivitamin, Protonix, Seroquel, Zoloft, trazodone, and Lidoderm patch. ALLERGIES: He has no known drug allergies. SOCIAL HISTORY: Nonsmoker, nondrinker. He is retired. 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 He lives with his . FAMILY HISTORY: Unobtainable. REVIEW OF SYSTEMS: Unobtainable, but clearly he has been declined since he has been here from a medical standpoint. PHYSICAL EXAMINATION: GENERAL: When I saw him, this is an elderly, bedridden gentleman. INITIAL VITAL SIGNS: Showed blood pressure 134/94, pulse is 75 and regular. He was afebrile, oxygen saturation 95% on room air. HEENT: Head is without trauma. Pupils are reactive. Sclerae nonicteric. Oropharynx is clear. NECK: Supple, no bruits identified. LUNGS: Otherwise clear. CARDIOVASCULAR: Showed regular heart tones. No gallops. ABDOMEN: Soft. EXTREMITIES: Without edema, some contracture. NEUROLOGIC: Profoundly demented and nonambulatory. Adult diapers have been applied. SKIN: Warm and dry. PERTINENT LABORATORY STUDIES: Two days ago his serum sodium was 155 mEq, yesterday was down to 152 with treatment. Creatinine is 1.1 mg/dL, nonfasting blood sugar 126. ASSESSMENT: 1. This 75-year-old gentleman has profound dementia with agitation on the [facility]. 2. Decreased oral intake with hypernatremia and free water deficit. 3. Significant urinary retention with intermittent placement and straight catheterization as well as placement of Hernandez catheter. 4. Generalized debilitation and inability to eat. PLAN: 1. Admit to the medical unit. 2. IV hydration with dextrose solution. 3. Serial chemistries. 4. Psychiatric meds have been simplified. 5. We will respect his DNR wishes. 6. We will try to [facility] with [facility]. I will try to contact his primary care physician. RICHARD BALDWIN MD DR: BRIDGET/romina JOB#: [id number] / [id number] PRABHAKAR Maier MD
[2020-10-28] MEDS: METOPROLOL SUCC 24HR ER 50 MG TAB.ER.24H. PO SCH (08:46)
[2020-10-28] MEDS: PANTOPRAZOLE 40 MG TABLET. PO SCH (08:46)
[2020-10-28 11:09] VITALS: BP 134/82
[2020-10-28] MEDS: DIVALPROEX 125 MG CAP.SPRINK PO SCH (21:12)
[2020-10-28 22:06] VITALS: BP 124/79
[2020-10-29] MEDS: IV DEXTROSE 5% 1,000 ML IV SCH ×3 (00:30→22:57)
--- NOTE | 2020-10-29 01:40 | NUR ---
Nursing note: Pt pleasant and cooperative except during brief changes. Inc. bowel and bladder. Meds in vanilla pudding.
[2020-10-29 05:59] VITALS: BP 109/53
[2020-10-29 07:01] LABS: CALCIUM 8.8 mg/dL (8.5-10.1); CREATININE 1.3 mg/dL (0.7-1.3); GFR 53.5; POTASSIUM 3.6 mmol/L (3.5-5.1)
[2020-10-29] MEDS: PANTOPRAZOLE 40 MG TABLET. PO SCH (09:00)
[2020-10-29] MEDS: METOPROLOL SUCC 24HR ER 50 MG TAB.ER.24H. PO SCH (09:00)
[2020-10-29 10:34] VITALS: BP 107/78
[2020-10-29] MEDS: DIVALPROEX 125 MG CAP.SPRINK PO SCH (19:24)
[2020-10-29 19:25] VITALS: BP 98/66
--- NOTE | 2020-10-29 19:58 | PN ---
DATE: 10/29/2020 ATTENDING PHYSICIAN: Dr. Baldwin. SUBJECTIVE: Pleasantly confused. He is unable to comprehend normal conversation, responses are confused. OBJECTIVE FINDINGS: VITAL SIGNS: Blood pressure today is 124/79 mmHg. He is afebrile. Oxygen saturation 93% on room air, pulse is 89 and regular. HEENT: Head is without trauma. Pupils are reactive. Sclerae nonicteric. Oropharynx clear. NECK: Supple. No stridor. LUNGS: Shallow respirations. CARDIOVASCULAR: Showed distant heart tones. No gallops. ABDOMEN: Soft, no guarding. EXTREMITIES: Without edema. He is bedridden. NEUROLOGIC: Profoundly confused. He is incontinent of urine adult diapers in place. LABORATORY DATA: Chemistry panel: Serum sodium is down to 143 mEq/L. Creatinine is 1.3 mg/dL. ASSESSMENT: 1. A 75-year-old gentleman with dehydration and hypernatremia due to free water deficit. 2. Profound dementia with agitation. 3. Urinary retention and incontinence. 4. Generalized debilitation. He is in decline. PLAN: 1. Continue IV hydration today. 2. Serial chemistries. 3. Tentative discharge plans to go to [facility] tomorrow with hospice services. I will try to contact his PCP in the morning, recs per Psychiatry. RICHARD BALDWIN MD DR: BRIDGET/romina JOB#: [id number] / [id number]
[2020-10-30 06:11] VITALS: BP 105/64
[2020-10-30] MEDS: IV DEXTROSE 5% 1,000 ML IV SCH ×2 (08:08→16:34)
[2020-10-30] MEDS: PANTOPRAZOLE 40 MG TABLET. PO SCH (08:09)
[2020-10-30] MEDS: METOPROLOL SUCC 24HR ER 50 MG TAB.ER.24H. PO SCH (08:26)
[2020-10-30 10:07] VITALS: BP 106/71
[2020-10-30 14:38] VITALS: BP 112/73
--- NOTE | 2020-10-30 16:17 | PN ---
DATE: 10/30/2020 ATTENDING PHYSICIAN: Dr. Baldwin. SUBJECTIVE: Pleasantly confused. He is not in any acute distress. He has no new complaints. OBJECTIVE FINDINGS: VITAL SIGNS: Blood pressure this morning is 105/64, pulse is 77 and regular. He is afebrile. Oxygen saturation 100% on room air. HEENT: Head is without trauma. Pupils are reactive. Oropharynx clear. NECK: Supple, no bruits. LUNGS: Good breath sounds. CARDIOVASCULAR: Showed regular heart tones. No gallops. ABDOMEN: Soft, nontender, no guarding, rebound tenderness. EXTREMITIES: Without edema. NEUROLOGIC: Pleasantly confused and bedridden. SKIN: Warm and dry. ASSESSMENT: 1. A 75-year-old gentleman with dehydration, hypernatremia due to free water deficit. 2. Profound dementia with agitation in decline. 3. Urinary retention and incontinence. 4. Generalized debilitation. PLAN: 1. Comfort measures. 2. Serial chemistries. 3. I have notified his PCP in [place], [place]. We are in the process of trying to get him discharged to [facility] senior living with hospice there. RICHARD BALDWIN MD DR: BRIDGET/romina JOB#: [id number] / [id number]
--- NOTE | 2020-10-30 18:12 | NUR ---
Pt has been calm, cooperative, and pleasant throughout the shift.
[2020-10-30 19:00] VITALS: BP 142/82
[2020-10-30 19:19] VITALS: BP 182/96
[2020-10-30] MEDS: DIVALPROEX 125 MG CAP.SPRINK PO SCH (20:00)
[2020-10-31] MEDS: IV DEXTROSE 5% 1,000 ML IV SCH ×2 (02:40→12:23)
[2020-10-31 06:06] VITALS: BP 147/75
--- NOTE | 2020-10-31 08:49 | PN ---
DATE: 10/31/2020 ATTENDING PHYSICIAN: Dr. Baldwin. SUBJECTIVE: The patient is pleasantly confused. He is sleepy, but arousable. He is in no acute distress. OBJECTIVE FINDINGS: VITAL SIGNS: Blood pressure this morning is 147/75, pulse 77 and regular. He is afebrile. Oxygen saturation 97% on room air. HEENT: Head is without trauma. Pupils are reactive. Sclerae nonicteric. Oropharynx clear. NECK: Supple. LUNGS: Shallow respirations. CARDIOVASCULAR: Regular heart tones. ABDOMEN: Soft. EXTREMITIES: Without edema. NEUROLOGIC: Pleasantly confused and bedridden. ASSESSMENT: 1. A 75-year-old gentleman with dehydration and hypernatremia due to free water deficit. 2. Profound dementia with agitation in decline. 3. Urinary retention and incontinence. 4. Generalized debilitation. PLAN: 1. Continue comfort measures on the medical floor. 2. Follow up chemistry today. 3. Diet as tolerated. 4. We are in the process of trying to get into [facility] in [facility] with hospice. RICHARD BALDWIN MD DR: BRIDGET/romina JOB#: [id number] / [id number]
[2020-10-31 08:55] VITALS: BP 147/75
[2020-10-31] MEDS: PANTOPRAZOLE 40 MG TABLET. PO SCH (08:55)
[2020-10-31] MEDS: METOPROLOL SUCC 24HR ER 50 MG TAB.ER.24H. PO SCH (08:55)
[2020-10-31 09:38] LABS: GFR 72.5; POTASSIUM 3.7 mmol/L (3.5-5.1)
--- NOTE | 2020-10-31 11:12 | DS ---
DATE OF DISCHARGE: 10/31/2020 ATTENDING PHYSICIAN: Dr. Baldwin. FINAL DISCHARGE DIAGNOSES: 1. A 75-year-old gentleman with profound dementia and agitation from the [facility]. 2. Hypernatremia due to free water deficit. 3. Significant urinary retention and incontinence. 4. Generalized debilitation and decline. HISTORY AND PHYSICAL: The patient is a 75-year-old gentleman with multiple medical issues along with psychiatric issue. He has profound dementia and he has been at the [facility] for the last 2-1/2 months. He has been in decline. He had hypernatremia with free water deficit. He was given IV fluids and sent to the medical floor for further treatment. He is a DNR per advanced directive. PHYSICAL EXAMINATION: Please see the dictated note. PERTINENT LABORATORY AND X-RAY STUDIES: On admission, his sodium had been 155 mEq. With hydration, it was down to 143 and then eventually 140 mEq/L. Creatinine is 1.0 mg percent. COURSE IN THE HOSPITAL: The patient was admitted and started on gentle IV hydration with dextrose. Serial chemistries were drawn. Meds were simplified and most of the psych meds were removed. He still required total care. He had to be fed. Arrangement was then made with his primary care doctor's office as well as his . He was going to go to [facility] in [place] with hospice care. Therefore, on the fourth hospital day, arrangements were made to transport the patient to [place], [place] for end of life care. His discharge meds have been simplified. Most of her psychiatric meds have been held. He will continue his Tylenol, BuSpar, Depakote, fluticasone spray, metoprolol and Protonix dose. For now, we took the liberty of stopping his magnesium hydroxide, Seroquel, Zoloft, and lactobacillus. He is a DNR per advanced directives. His prognosis is terminal. He was discharged then from our hospital in stable condition with explicit instructions and followup care. TOTAL DISCHARGE TIME SPENT: 41 minutes. RICHARD BALDWIN MD DR: BRIDGET/romina JOB#: [id number] / [id number] SOY Mcgill
--- NOTE | 2020-10-31 15:29 | NUR ---
Discharge note Pt discharged at 1529 via EMS. Report called to Archana at [facility] at [phone]
== END 2020-10-31 15:29 | DRG 641 ==
LOC: 1 SOUTH 16:20
PROVIDERS: ADMIT Hospitalist; ATTEND Hospitalist
DX: E87.0 Hyperosmolality and hypernatremia (principal); F01.51 Vascular dementia, unspecified severity, with behavioral disturbance; E86.0 Dehydration; Z20.822 Contact with and (suspected) exposure to COVID-19; Z66 Do not resuscitate; Z51.5 Encounter for palliative care; F41.9 Anxiety disorder, unspecified; R33.9 Retention of urine, unspecified; Z79.899 Other long term (current) drug therapy
CPT/HCPCS: 36415; 80048; U0003; U0005